=== PATIENT | female | born 1990 | race Caucasian/White ===

== ENCOUNTER 2022-01-11 12:09 | Outpatient (CLI) | payer BC, SELFPAY ==
[2022-01-11] VITALS (8 sets, daily range): BP systolic 131–145; BP diastolic 88–101; PULSE 75–88; BMI 45.8
[2022-01-11] MEDS: Acetaminophen/Butalbital/Caffe 1 Tablet 2 TABLET PO (13:03)
[2022-01-11 13:48] LABS: Hematocrit 32.2 % (37-47); Hemoglobin 10.3 g/dL (12.0-15.0); Mean Corpuscular Volume 90.7 fL (81-99); Mean Platelet Vol. 9.8 fl (6.2-12.0); Platelet Count 326 K/mm3 (150-450); RBC Distribution Width CV 13.5 % (11.6-14.6); Red Blood Count 3.55 M/mm3 (4.2-5.4); White Blood Count 10.5 K/mm3 (4.4-11.0)
[2022-01-11 14:08] LABS: ALB/GLOB Ratio 0.6 RATIO (0.9-2.4); AST(SGOT) 16 U/L (15-37); Alanine Aminotransfer ALT/SGPT 23 U/L (13-56); Albumin, Serum 2.3 g/dL (3.2-5.0); Alkaline Phosphatase 141 U/L (45-117); Anion Gap 7 (5-15); BUN 9 mg/dL (7-18); BUN/Creat Ratio 14.8 RATIO (10-20); Calcium,Total 9.1 mg/dL (8.5-10.1); Chloride 107 mmol/L (98-107); Creatinine, Serum 0.61 mg/dL (0.55-1.02); EST Glomerular Filtration Rate 120 mL/min (>60); Est Glom Filt Rate - Afr Amer 145 mL/min (>60); Estimated Creatinine Clearance 103.75 ml/min; Globulin 4.1 g/dL (2.2-4.2); Glucose 83 mg/dL (74-106); Potassium 3.8 mmol/L (3.5-5.1); Protein, Total 6.4 g/dL (6.4-8.2); Sodium Level 143 mmol/L (136-145); Uric Acid 4.5 mg/dL (2.6-6.0)
--- NOTE | 2022-01-11 14:13 | PCM.HP.BLA ---
History and Physical Date of Admission: 01/11/22 HPI: 31 yo s/p on 01/05. Delivered at [facility] in [place]. Patient presenting today with headache. Patient states that the headache started yesterday. She was taking Motrin and Tylenol alternating every 6 hours. States headache is frontal, not behind her eyes, throbbing in nature. [place] somewhat better last evening. Woke up this morning and headache was present again. States she had about 10 minutes of blurry vision around 915 which is since resolved and not recurred. Since receiving Fioricet, states that headache has decreased from 8 to a level 5. Now she is feeling tired and some soreness. Denies visual disturbances, chest pain or shortness of breath, nausea or vomiting, right upper quadrant pain, diarrhea constipation, fevers or chills. States that her blood pressures became mildly elevated during her induction last week, labs were negative at that time. Patient was discharged home with blood pressure cuff, was instructed to check blood pressure in the a.m. and p.m., has not been doing this at home, until today. Blood pressures mildly elevated at home. Nothing over 160/110. 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 Depression Surgical History: 1. Laparoscopic cholecystectomy Medications: 1. Lexapro Allergies: NKDA Social History: Denies tobacco, alcohol, drug use Family History: Denies hx of blood clots, bleeding disorders. ROS: negative otherwise stated above Physical Exam: BP 137/96, HR 80 General: No acute distress comfortable in bed HEENT: Normal cephalic/atraumatic, PERRLA Cardiorespiratory: No increased effort, regular heart rate Abdomen: Soft, nontender Extremities: No edema Neurologic: Cranial nerves II through XII grossly intact, no focal deficits, patellar reflexes 2/4 bilaterally, no clonus Musculoskeletal: Strength 5 out of 5 throughout extremities Assessment/plan: 31-year-old G1, P1 day 6 status post presenting with headache and elevated blood pressure. ?CBC and CMP within normal limits. ?Blood pressure slightly elevated ?Headache improved greatly with Fioricet. Had short episode of visual disturbances this morning which has resolved and not returned. ?No evidence at this time of severe preeclampsia or need for magnesium sulfate treatment. ?Discussed possible options for treatment including: Overnight blood pressure monitoring and starting blood pressure medication inpatient versus discharge home with blood pressure medication and outpatient monitoring. Discussed risks and benefits of each. Patient does have blood pressure cuff at home. As there is no evidence of severe preeclampsia at this time, reasonable for discharge home with outpatient management. Patient elected for this option, through shared decision making, will discharge home on labetalol 100 mg twice daily and Fioricet as needed. ?Patient and instructed to check blood pressure 3 times daily. To return to hospital for blood pressure greater than 160/110, headache that is worsening and not improving, visual disturbances, right upper quadrant pain, patient not feeling well. Aware that if this were to occur she would then be diagnosed with severe preeclampsia and would be kept in the hospital for magnesium sulfate and inpatient blood pressure monitoring. All questions answered. -Discharge home with precautions, increased hydration, rest at home.
== END 2022-01-11 14:40 | disposition home or self-care (01) ==
LOC: WPOUT 12:33 → WP 12:33
PROVIDERS: Referring Provider Student in an Organized Health Care Education/Training Program; Visit Provider Student in an Organized Health Care Education/Training Program
DX: O90.89 Other complications of the puerperium, not elsewhere classified (principal); R03.0 Elevated blood-pressure reading, without diagnosis of hypertension; R51.9 Headache, unspecified
CPT/HCPCS: 36415; 80053; 84550; 85027; 99218; G0378

== ENCOUNTER → 2024-05-03 | Outpatient (CLI) | payer OTHER, BC, SELFPAY ==
[2024-05-08 08:07] LABS: HPV APTIMA, High Risk Negative (Negative)
== END | disposition home or self-care (01) ==
LOC: LABSPEC 16:27
PROVIDERS: Referring Provider Advanced Practice Midwife; Visit Provider Advanced Practice Midwife
DX: Z12.4 Encounter for screening for malignant neoplasm of cervix (principal)
CPT/HCPCS: 87624; 88175; G0145

== ENCOUNTER → 2024-06-09 | Outpatient (CLI) | payer OTHER, BC, SELFPAY ==
[2024-06-09 17:37] LABS: Protein:Creat Ratio 119 mg/g CRE (0-200)
== END | disposition home or self-care (01) ==
LOC: LABSPEC 16:14
PROVIDERS: Referring Provider Advanced Practice Midwife; Visit Provider Advanced Practice Midwife
DX: O10.019 Pre-existing essential hypertension complicating pregnancy, unspecified trimester (principal); Z3A.00 Weeks of gestation of pregnancy not specified
CPT/HCPCS: 82570; 84156; 87086; 87088; 87491; 87591

== ENCOUNTER → 2024-07-06 | Outpatient (CLI) | payer OTHER, BC, SELFPAY ==
[2024-07-06 16:52] LABS: Absolute Lymphocyte Count 2.48 X10^3/uL (0.83-4.51); Absolute Neutrophil Count 4.7 X10^3/uL (2.0-7.7); Basophil# 0.05 X10^3/uL; Basophil% 0.6 % (0-1); Eosinophil# 0.28 X10^3/uL; Eosinophils% 3.4 % (0-5); Hematocrit 34.6 % (37-47); Hemoglobin 11.6 g/dL (12.0-15.0); Lymphocyte # 2.48 X10^3/ul (0.83-4.51); Lymphocyte % 30.4 % (19-41); Mean Corp Hgb Conc 33.5 g/dL (32-36); Mean Corpuscular Hgb 29.7 pg (27.0-32.0); Mean Corpuscular Volume 88.7 fL (81-99); Mean Platelet Vol. 10.8 fl (6.2-12.0); Monocyte# 0.62 X10^3/uL; Monocyte% 7.6 % (0-10); NRBC Flagged by Analyzer 0 % (0-5); Neutrophil # 4.71 X10^3/uL (2.7-7.7); Neutrophil % 57.6 % (47-70); Platelet Count 283 K/mm3 (150-450); RBC Distribution Width CV 13.1 % (11.6-14.6); RBC Distribution Width SD 42.6 fl (35.1-43.9); White Blood Count 8.2 K/mm3 (4.4-11.0)
[2024-07-06 18:04] LABS: HIV Nonreactive (Nonreactive); Hepatitis B Surface Antigen Nonreactive (Nonreactive); Hepatitis C Antibody Nonreactive (Nonreactive); Rubella IgG REAC (Nonreactive); Syphilis Antibodies Nonreactive (Nonreactive)
[2024-07-06 18:36] LABS: ALB/GLOB Ratio 1.3 RATIO (0.9-2.4); AST(SGOT) 16 U/L (<=31); Alanine Aminotransfer ALT/SGPT 15 U/L (<=34); Albumin, Serum 3.6 g/dL (3.5-5.0); Alkaline Phosphatase 58 U/L (35-104); Anion Gap 12 (5-15); BUN 10 mg/dL (4-19); BUN/Creat Ratio 19.8 RATIO (10-20); Calcium,Total 9.3 mg/dL (7.6-11.0); Carbon Dioxide 22.8 mmol/L (21.0-32.0); Chloride 103 mmol/L (98-108); Creatinine, Serum 0.53 mg/dL (0.70-1.20); EST Glomerular Filtration Rate 124 (>60); Globulin 2.7 g/dL (2.2-4.2); Glucose 99 mg/dL (70-99); Potassium 3.8 mmol/L (3.3-5.1); Protein, Total 6.3 g/dL (5.9-8.4); Sodium Level 138 mmol/L (133-145); Total Bilirubin < 0.15 mg/dL (0.00-1.30)
== END | disposition home or self-care (01) ==
PROVIDERS: Referring Provider Obstetrics & Gynecology; Visit Provider Advanced Practice Midwife
DX: O09.90 Supervision of high risk pregnancy, unspecified, unspecified trimester (principal); Z3A.00 Weeks of gestation of pregnancy not specified
CPT/HCPCS: 36415; 80053; 83036; 85025; 86703; 86762; 86780; 86803; 86850; 86900; 86901; 87340

== ENCOUNTER → 2024-07-21 | Outpatient (CLI) | payer OTHER, BC, SELFPAY ==
--- NOTE | 2024-07-21 08:59 | EKG12_ITS ---
Test Reason : Blood Pressure : */* mmHG Vent. Rate : 75 BPM Atrial Rate : 75 BPM P-R Int : 124 ms QRS Dur : 70 ms QT Int : 444 ms P-R-T Axes : 8 12 8 degrees QTcB Int : 495 ms Normal sinus rhythm Cannot rule out Anterior infarct , age undetermined Abnormal ECG Confirmed by PAUL DE LA CRUZ, KUSHAL ([id number]), scientific publications editor CESAR NOLAND ([id number]) on 07/24/2024 8:54:36 AM Referred By: Tawana Casper Confirmed By: KUSHAL MILLER MD
== END | disposition home or self-care (01) ==
LOC: PSN 08:56
PROVIDERS: PCP Family Medicine; Referring Provider Obstetrics & Gynecology; Visit Provider Obstetrics & Gynecology
DX: O99.210 Obesity complicating pregnancy, unspecified trimester (principal); O09.529 Supervision of elderly multigravida, unspecified trimester; Z3A.00 Weeks of gestation of pregnancy not specified
CPT/HCPCS: 93005

== ENCOUNTER → 2024-08-02 | Outpatient (CLI) | payer OTHER, BC, SELFPAY ==
[2024-08-02 13:01] LABS: Protein:Creat Ratio 65 mg/g CRE (0-200)
== END | disposition home or self-care (01) ==
LOC: BWCLAB 11:46
PROVIDERS: PCP Family Medicine; Referring Provider Obstetrics & Gynecology; Visit Provider Obstetrics & Gynecology
DX: O09.90 Supervision of high risk pregnancy, unspecified, unspecified trimester (principal); Z3A.00 Weeks of gestation of pregnancy not specified
CPT/HCPCS: 82570; 84156

== ENCOUNTER → 2024-10-30 | Outpatient (CLI) | payer OTHER, BC, SELFPAY ==
[2024-10-30 16:46] LABS: Hematocrit 33.3 % (37-47); Hemoglobin 11.1 g/dL (12.0-15.0); Immature Granulocytes Count 0.050 X10^3/uL (0.0-0.0); Mean Corp Hgb Conc 33.3 g/dL (32-36); Mean Corpuscular Volume 90.0 fL (81-99); Mean Platelet Vol. 11.0 fl (6.2-12.0); NRBC Flagged by Analyzer 0 % (0-5); Platelet Count 277 K/mm3 (150-450); RBC Distribution Width CV 13.7 % (11.6-14.6); RBC Distribution Width SD 44.5 fl (35.1-43.9); Red Blood Count 3.70 M/mm3 (4.2-5.4); White Blood Count 10.8 K/mm3 (4.4-11.0)
[2024-10-30 17:51] LABS: Glucose Challenge Gest 1H 50g 138 mg/dL (70-140); HIV Nonreactive (Nonreactive); Syphilis Antibodies Nonreactive (Nonreactive)
== END | disposition home or self-care (01) ==
LOC: BWCLAB 13:32
PROVIDERS: PCP Family Medicine; Referring Provider Advanced Practice Midwife; Visit Provider Advanced Practice Midwife
DX: O99.210 Obesity complicating pregnancy, unspecified trimester (principal); Z3A.25 25 weeks gestation of pregnancy
CPT/HCPCS: 36415; 82950; 85025; 86703; 86780

== ENCOUNTER → 2024-11-10 | Outpatient (CLI) | payer OTHER, BC, SELFPAY ==
--- OUTSIDE RECORDS SUMMARY | 2024-11-10 06:50 | XMS RPT_ITS | CCD ---
Author Organization [facility] ion [facility] Care Team Providers Care Retail Equipment Associate Name Role Phone Escolas, Celio Unavailable Unavailable Rafiq Dyson Unavailable Unavailable Ericka Singer Unavailable Unavailable Escolas, Celio W Unavailable Unavailable Mishel Cartagena Unavailable Unavailable Bridger Patel Unavailable Unavailable Gera Flanagan Unavailable Unavailable Zayda Espinosa Unavailable Unavailable OBGYN IVF RDMS [id number], MG OBGYN Unavailable Unavailable Escolas, Celio W Unavailable Unavailable Unavailable Mike Nicholson Unavailable Unavailable Haley Méndez Unavailable Unavailable Unavailable Unavailable Escolas, Celio Unavailable Sarina Hall Unavailable [phone] Tom Bull Unavailable Suki You Unavailable Unavailable Unavailable Unavailable Dariela Campuzano Attending Unav ailable Dariela Campuzano Referring Unav ailable ESCOLAS, CELIO W Primary Care Unavailable ESCOLAS, CELIO W Primary Care Unavailable Petr-Banak, Ms. Tom Buitrago Attending Unavailable Petr-Banak, Ms. Tom Buitrago Referring Unavailable Petr-Banak, Ms. Tom Buitrago Attending Unavailable ESCOLAS, CELIO W Primary Care Unavailable Petr-Banramiro, Ms. Tom Buitrago Referring Unavailable ESCOLAS, CELIO W Referring Unavailable ESCOLAS, CELIO W Primary Care Unavailable Dr. MIKE NICHOLSON Attending Unavailab le ESCOLAS, CELIO W Primary Care Unavailable Suki You Attending Unavailable Suki You Referring Unavailable Petr-Banramiro, Ms. Tom Buitrago Attending Unavailable ESCOLAS, CELIO W Primary Care Unavailable Petr-Banak, Ms. Tom Buitrago Referring Unavailable Petr-Banak, Ms. Tom Buitrago Attending Unavailable ESCOLAS, CELIO Hankins Primary Care Unavailable Petr-Banak, Ms. Tom Buitrago Referring Unavailable Petr-Banak, Ms. Tom Buitrago Referring Unavailable ESCOLAS, CELIO Hankins Primary Care Unavailable Petr-Banak, Ms. Tom Buitrago Attending Unavailable Austinson, Dariela Mayfield Attending Unav ailable Austinson, Dariela Mayfield Referring Unav ailable ESCOLAS, CELIO Hankins Primary Care Unavailable Petr-Banak, Ms. Tom Buitrago Attending Unavailable ESCOLAS, CELIO Hankins Primary Care Unavailable Petr-Banak, Ms. Tom Buitrago Referring Unavailable ESCOLAS, [facility] Primary Care Unavailable Petr-Banak, Ms. Tom Buitrago Attending Unavailable Petr-Banak, Ms. Tom Buitrago Referring Unavailable ESCOLAS, CELIO Hankins Primary Care Unavailable Petr-Banak, Ms. Tom Buitrago Referring Unavailable Cortevallen, Dr. Janine Branch Attending U navailable ESCOLAS, CELIO Hankins Primary Care Unavailable Betty Dumont Attending Unavailable MD Jagjit Boles Admitting Unavailable MD Jagjit Boles Referring Unavailable Jorgeewie, Dr. Sarina Arteaga Attending Unavailable ESCOLAS, CELIO Primary Care Unavailable Patient, Unavailable Referring Unavailable ESCOLAS, CELIO Primary Care Unavailable Angely Shah Attending Unavailabl e Petr-Banak, Ms. Tom Buitrago Referring Unavailable ESCOLAS, CELIO Hankins Primary Care Unavailable EvanstonKrystal Attending Unavailable Petr-Banak, Ms. Tom Buitrago Referring Unavailable ESCOLAS, CELIO Primary Care Unavailable Cortcarlos, Dr. Janine Branch Attending U navailable Petr-Banak, Ms. Tom Shawe Referring Unavailable ESCOLAS, CELIO Primary Care Unavailable May, Dr. Marium Hillman Attending Unavail able ESCOLAS, CELIO Primary Care Unavailable Petr-Banak, Ms. Tom Shawe Referring Unavailable Cole, Flex Stone Attending Unavaila ble Petr-Banak, Ms. Tom Shawe Referring Unavailable ESCOLAS, CELIO W Primary Care Unavailable Krystal Cabral Attending Unavailable Patient, Unavailable Referring Unavailable Rafael, Dr. Sarina Arteaga Attending Unavailable ESCOLAS, CELIO W Primary Care Unavailable ESCOLAS, CELIO W Primary Care Unavailable You, Suki Attending Unavailable Petr-Banak, Ms. Tom Buitrago Attending Unavailable ESCOLAS, CELIO W Primary Care Unavailable ESCOLAS, CELIO W Attending Unavailable ESCOLAS, CELIO W Referring Unavailable ESCOLAS, CELIO W Primary Care Unavailable Petr-Banak, Ms. Tom Buitrago Attending Unavailable ESCOLAS, CELIO W Primary Care Unavailable Petr-Banak, Ms. Tom Buitrago Referring Unavailable Austinson, Dariela Mayfield Attending Unav ailable Austinson, Dariela Mayfield Referring Unav ailable ESCOLAS, CELIO W Primary Care Unavailable Petr-Banak, Ms. Tom Buitrago Referring Unavailable Petr-Banak, Ms. Tom Buitrago Attending Unavailable ESCOLAS, CELIO W Primary Care Unavailable You, Suki Referring Unavailable You, Suki Attending Unavailable ESCOLAS, CELIO W Primary Care Unavailable ESCOLAS, CELIO W Primary Care Unavailable PHYSICIAN, NOT RECORDED Primary Care Physician U navailable JOSEPH DEL CID DO Attending Unavailable LIZETH GOLDSTEINN-PRIMARY HEALTH ORGANISATION MANAGER, SANJANA Roman Primary Care UnaCarmen yMles CNM Attending Provider [phone] Carmen Perdomo CNM Referring Provider [phone] Andressa Schmitz RN Attending Provider Unavailabl e ESCOLAS, CELIO W Attending Unavailable ESCOLAS, CELIO W Primary Care Unavailable Dr. Tawana Timmons MD Attending Provider Dr. Tawana Timmons MD Referring Provider Dr. Judie Bella MD Primary Care Provider Dr. Arnulfo Gilmore MD Attending Provider Dr. Judie Bella MD Referring Provider Dr. Anh Song DO Attending Provider Carmen Perdomo CNM Attending Provider [phone] Carmen Perdomo CNM Referring Provider [phone] NO PRIMARY CARE, Primary Care Unavailable TIM BAH Attending Unavailable TAWANA TIMMONS Referring Unavailabl e MIEDEL, JUDIE E Primary Care Unavailable GOPI GONZALEZ Attending Unavailable TAWANA TIMMONS Referring Unavailelizabeth Perdomo CNM, Carmen Attending Provider [phone] Conor CNM, Carmen Referring Provider Carmen Perdomo Attending Unavailable Carmen Perdomo Referring Unavailable Miedel, Judie Primary Care Unavailable Carmen Perdomo Referring Unavailable Carmen Perdomo Attending Unavailable Miedel, Judie Primary Care Unavailable Andressa Schmitz Attending Unavailable Tawana Timmons Referring Unavailable Arnulfo Gilmore Attending Unavailable Miedel, Judie Primary Care Unavailable Carmen Perdomo Attending Unavailable Miedel, Judie Referring Unavailable Miedel, Judie Primary Care Unavailable Carmen Perdomo Attending Unavailable Tawana Timmons Attending Unavailable Carmen Perdomo Attending Unavailable Miedel, Judie Primary Care Unavailable Miedel, Judie Referring Unavailable Anh Song Attending Unavailabl e Miedel, Judie Referring Unavailable Miedel, Judie Primary Care Unavailable Anh Song Attending Unavailabl e Carmen Perdomo Attending Unavailable Miedel, Judie Referring Unavailable Miedel, Judie Primary Care Unavailable Carmen Perdomo Attending Unavailable Carmen Perdomo Referring Unavailable Carmen Perdomo Attending Unavailable Carmen Perdomo Referring Unavailable Carmen Perdomo Attending Unavailable Tawana Timmons Referring Unavailable Tawana Timmons Attending Unavailable Tawana Timmons Referring Unavailable Miedel, Judie Primary Care Unavailable Tawana Timmons Referring Unavailable Miedel, Judie Primary Care Unavailable Tawana Timmons Attending Unavailable Carmen Perdomo Referring Unavailable Carmen Perdomo Attending Unavailable Miedel, Judie Primary Care Unavailable Allergies Allergy Classification Reported Allergen(s) Allergy Type Date of Onset Reaction(s) Facility Opioid Agonists (6 sources) Codeine; Translations: [Codeine Derivatives] Drug Allergy [facility] Work Phone: (20 sources) Codeine; Translations: [Codeine Derivatives] Drug Allergy 2 Vomiting, Nausea [facility] Work Phone: (2 sources) Codeine; Translations: [CODEINE] Drug Allergy 3 [facility] (2 sources) vilazodone; Translations: [VILAZODONE HCL] Drug Allergy 2 [facility] Medications Current Medications Medication Drug Class(es) Dates Sig (Normalized) Sig (Original) acetaminophen 325 mg oral tablet (1 source) Start: 01-07-2022 take 3 tablets by mouth every six hours acetaminophen 325 mg oral tablet ; 3 tab(s) orally every 6 hours Quantity: 0 Refills: 0 Ordered: 07-Jan-2022 Yasmin Lackey Start: 07-Jan-2022 Generic Substitution Allowed acyclovir 800 mg oral tablet (7 sources) Herpesvirus Nucleoside Analog DNA Polymerase Inhibitor, Herpes Simplex Virus Nucleoside Analog DNA Polymerase Inhibitor, Herpes Zoster Virus Nucleoside Analog DNA Polymerase Inhibitor Start: 05-05-2021 End: 07-04-2021 take 1 tablet by mouth twice daily as needed Acyclovir 800 MG Oral Tablet TAKE 1 TABLET Twice daily PRN Quantity: 60 Refills: 1 Ordered: 05-May-2021 Celio Zhou DO Start : 05-May-2021 End : 04-Jul-2021 Active Ascorbic Acid (1 source) Vitamin C Vitamin C Quanti ty: 0 Refills: 0 Ordered: 12-Dec-2021 Domingo, Parmjita Generic Substitution Allowed benzoyl peroxide 50 mg/ml topical lotion (1 source) Start: 04-08-2021 [id number] Medication benzoyl peroxide 5 % topical cleanser benzoyl peroxide 5 % topical cleanser 5 % 1 Application topically daily 04/08/2021 Active (Current) cholecalciferol 0.01 mg oral tablet (4 sources) Vitamin D Start: 04-08-2021 [id number] Medication cholecalciferol (vitamin D3) 10 mcg (400 unit) tablet Vitamin D3 10 mcg (400 unit) 04/08/2021 Active (Outside) take 1 capsule by mouth every we ek Vitamin D3 1250 mcg (50,000 intl units) oral capsule ; cap(s) orally once a week Quantity: 0 Refills: 0 Ordered: 12-Dec-2021 Domingo, LaKeishia Generic Substitution Allowed dexlansoprazole 60 mg delayed release oral capsule (17 sources) Proton Pump Inhibitor Start: 03-06-2021 [id number] Medication dexlansoprazole 60 mg capsule,biphase delayed release Dexilant 60 mg capsule, delayed release 60 mg TAKE ONE CAPSULE BY MOUTH OSORIO 03/06/2021 Active (Outside) Start: 01-29-2021 take 1 capsule by [facility] once daily Dexilant 60 MG Oral Capsule Delayed Release TAKE ONE CAPSULE BY MOUTH DAILY Quantity: 30 Refills: 5 Ordered: 29-Jan-2021 Celio Zhou DO Start : 29-Jan-2021 Active take 1 capsule by [facility] once daily Dexilant 60 MG Oral Capsule Delayed Release TAKE ONE CAPSULE BY MOUTH DAILY Quantity: 30 Refills: 5 Ordered: 10-Jun-2020 Celio Zhou DO Active docusate sodium 100 mg oral capsule (1 source) Start: 01-07-2022 take 2 capsules by mouth twice daily as needed docusate sodium 100 mg oral capsule ; 1 cap(s) orally 2 times a day, As needed, Stool Softening Quantity: 0 Refills: 0 Ordered: 07-Jan-2022 Yasmin Lackey Start: 07-Jan-2022 Generic Substitution Allowed escitalopram 20 mg oral tablet (20 sources) Serotonin Reuptake Inhibitor Start: 03-17-2024 take 1 tablet by mouth once daily Escitalopram Oxalate (Lexapro) 20 mg tablet Active 20 mg PO daily March 17, 2024 1:00am Start: 02-24-2022 End: 05-25-2022 take 1 tablet by mouth once daily Escitalopram Oxalate 20 MG Oral Tablet Take 1 tablet daily Quantity: 90 Refills: 0 Ordered: 24-Feb-2022 Michelle Smith Start : 24-Feb-2022 End : 25-May-2022 Active Start: 03-11-2021 take 1 tablet by mouth once 35 1250 Medication escitalopram 20 mg tablet escitalopram 20 mg tablet 20 mg TAKE ONE TABLET BY MOUTH EVERY 03/11/2021 Active (Outside) Start: 01-08-2020 End: 03-17-2024 Escitalopram Oxalate (Lexapr o) 10 mg Tablet Discontinued mg January 11, 2022 12:00am March 17, 2024 9:16am Start: 01-08-2020 [facility] daily Escitalopram Oxalate 20 MG Oral Tablet TAKE ONE TABLET BY MOUTH EVERY DAY Quantity: 30 Refills: 5 Ordered: 05-Feb-2021 Aniacraigcelena Celio HERNANDEZ Start : 08-Jan-2020 Active Start: 01-08-2020 take 0.5 tablet by m outh once daily Escitalopram Oxalate 20 MG Oral Tablet TAKE 0.5 TABLET Daily Quantity: 15 Refills: 3 Ordered: 08-Oct-2020 AniaCelio flannery DO Start : 08-Jan-2020 Active take 1 tablet by norbert [facility] once daily Escitalopram Oxalate 20 MG Oral Tablet TAKE 1 TABLET BY MOUTH EVERY DAY Quantity: 30 Refills: 11 Winnie Celio HERNANDEZ Active metFORMIN hydrochloride 500 mg oral tablet (20 sources) Biguanide Start: 04-21-2023 Metformin 500 mg tablet Active mg PO April 21, 2023 1:00am Start: 04-01-2021 [id number] Medicat ion metformin ER 750 mg tablet,extended release 24 hr metformin ER 750 mg tablet,extended release 24 hr 750 mg 04/01/2021 Active (Outside) Start: 09-18-2019 take 2 tablets by mo uth once daily at dinner metFORMIN HCl ER 750 MG Oral Tablet Extended Release 24 Hour TAKE TWO TABLETS BY MOUTH ONCE DAILY WITH THE EVENING MEAL Quantity: 60 Refills: 3 Ordered: 10-Dec-2020 Winnie Celio HERNANDEZ Start : 18-Sep-2019 Active 24 hr metoprolol succinate 100 mg extended release oral tablet (10 sources) beta-Adrenergic Kevan Start: 03-17-2024 take 1 tablet by mouth twice daily Metoprolol Succinate 100 mg tablet extended release 24 hr Active 100 mg PO TWICE A DAY March 17, 2024 1:00am minocycline 100 mg oral capsule (1 source) Tetracycline-class Drug Start: 04-08-2021 take 1 capsule by mouth twice daily [id number] Medication minocycline 100 mg capsule minocycline 100 mg capsule 100 mg 1 Capsule by mouth twice a day 04/08/2021 Active (Current) phentermine hydrochloride 37.5 mg oral capsule (3 sources) Sympathomimetic Amine Anorectic Start: 08-05-2023 take 1 capsule by mouth once daily before mealtime phentermine 37.5 mg oral capsule take 1 capsule by mouth every morning BEFORE MEALS Start Date: 08/05/23 Status: Ordered Start: 06-10-2020 take 1 tablet by [facility]bert [facility] once daily Phentermine HCl - 37.5 MG Oral Tablet TAKE 1 TABLET DAILY. Quantity: 30 Refills: 0 Ordered: 12-Aug-2020 Celio Zhou DO Start : 10-Jun-2020 Active BMI: 43.53 Prena1 oral capsule (1 source) take 1 capsule by mouth once daily Prena1 oral capsule ; 1 cap(s) orally once a day Quantity: 0 Refills: 0 Ordered: 12-Dec-[address] Generic Substitution Allowed Ceslmizj-Myn-Df-Fa (1 source) Start: 01-11-2022 take 1 tablet by mouth once Rttihqtq-Rkj-Fh-Fa Active TABLET PO January 10, 2022 11:00pm Qwltfldh-Uxw-Kt-Fa 1 mg Tablet (10 sources) Start: 01-11-2022 take 1 tablet by mouth once Shwwdpbc-Sjh-Os-Fa 1 mg Tablet Active {tbl} PO January 11, 2022 12:00am tretinoin 0.25 mg/ml topical cream (1 source) Retinoid Start: 04-08-2021 [id number] Medication tretinoin 0.025 % topical cream tretinoin 0.025 % topical cream 0.025 % 1 Application to affected area at bedtime 04/08/2021 Active (Current) Completed/Discontinued Medications Medication Drug Class(es) Dates Sig (Normalized) Sig (Original) acetaminophen 300 mg / butalbital 50 mg / caffeine 40 mg oral capsule (18 sources) Barbiturate, Central Nervous System Stimulant, Methylxanthine Start: 01-11-2022 End: 03-17-2024 Butalbital-Acetam inophen-Caff (Fioricet) 50-300-40 mg capsule Discontinued 1 NMA PO Q8H as needed for pain 30 0 January 11, 2022 12:00am March 17, 2024 9:16am aspirin 81 mg delayed release oral tablet (20 sources) Platelet Aggregation Inhibitor, Nonsteroidal Anti-inflammatory Drug Start: 04-21-2023 End: 03-17-2024 take 1 tablet by mouth once daily Aspirin 81 mg tablet,delayed release (DR/EC) Discontinued 81 mg PO DAILY April 21, 2023 1:00am March 17, 2024 9:15am Aspirin 81 MG Or al Tablet Chewable Quantity: 0 Refills: 0 Ordered: 11-Jul-2021 DO Active take 1 tablet by mouth once osorio y Aspir 81 oral delayed release tablet ; 1 tab(s) orally once a day Quantity: 0 Refills: 0 Ordered: 12-Dec-[address] Generic Substitution Allowed Balcoltra 0.1-20 MG-MCG(21) Oral Tablet (2 sources) Start: 02-27-2022 take 1 tablet by mouth once daily Balcoltra 0.1-20 MG-MCG(21) Oral Tablet Take 1 tablet daily Quantity: 1 Refills: 3 Ordered: 27-Feb-2022 Tom Roberts Start : 27-Feb-2022 Active cariprazine 1.5 mg oral capsule (1 source) Atypical Antipsychotic Start: 10-28-2020 take 1 capsule by mouth once daily Vraylar 1.5 MG Oral Capsule TAKE ONE CAPSULE BY MOUTH DAILY Quantity: 30 Refills: 0 Ordered: 28-Oct-2020 DO Start : 28-Oct-2020 Complete 0.5 ml choriogonadotropin tahir 0.5 mg/ml prefilled syringe (6 sources) Gonadotropin Start: 03-11-2020 inject 0.5 mL by subcutaneous injection once Ovidrel 250 MCG/0.5ML Subcutaneous Injectable inject 0.5 mL once Quantity: 1 Refills: 2 Ordered: 11-Mar-2020 Zayda Bustillo Start : 11-Mar-2020 Active clindamycin 10 mg/ml topical lotion (4 sources) Lincosamide Antibacterial Start: 02-21-2019 Clindamycin Phosphate 1 % External Lotion Quantity: 60 Refills: 0 Start : 21-Feb-2019 Active clotrimazole 20 mg/ml vaginal cream (3 sources) Azole Antifungal Start: 05-01-2021 Clotrimazole 3 2 % Vaginal Cream INSERT 1 APPLICATORFUL INTRAVAGINALLY AT BEDTIME NIGHTLY. Quantity: 1 Refills: 0 Ordered: 01-May-2021 Celio Zhou DO Start : 01-May-2021 Active cyclobenzaprine hydrochloride 10 mg oral tablet (10 sources) Muscle Relaxant Start: 04-21-2023 End: 03-17-2024 take 1 tablet by mouth three times daily as needed for muscle spasms Cyclobenzaprine 10 mg tablet Discontinued 10 mg PO THREE TIMES A DAY as needed for muscle spasm 30 0 April 21, 2023 1:00am March 17, 2024 9:17am only AFTER work hours on work days DULoxetine 60 mg delayed release oral capsule (5 sources) Serotonin and Norepinephrine Reuptake Inhibitor Start: 10-08-2020 take 1 capsule by mouth once daily DULoxetine HCl - 60 MG Oral Capsule Delayed Release Particles TAKE 1 CAPSULE Daily Quantity: 30 Refills: 3 Ordered: 08-Oct-2020 Winnie HERNANDEZ Celio Start : 08-Oct-2020 Active after week of 30 mg Start: 10-08-2020 DULoxetine HCl - 30 MG Oral Capsule Delayed Release Particles 1 po daily while taking Lexapro 10 mg Quantity: 7 Refills: 0 Ordered: 08-Oct-2020 Celio Zhou DO Start : 08-Oct-2020 Active Norethindrone-E.Estradiol-Ir on (10 sources) Estrogen Start: 04-21-2023 End: 03-17-2024 Norethindrone-E.Estradiol-Ir on 1 mg-20 mcg (21)/75 mg (7) tablet Discontinued 1 {tbl} PO DAILY April 21, 2023 1:00am March 17, 2024 9:16am ibuprofen 600 mg oral tablet (11 sources) Nonsteroid al Anti-infla mmatory Drug Start: 04-21-2023 End: 03-17-2024 ta ke 1 ta bl et by mo wy h th re e ti me s da il y as ne ed ed fo r pa in Ibuprofen 600 mg tablet Discontinued 600 mg PO THREE TIMES A DAY as needed for pain 30 0 April 21, 2023 1:00am March 17, 2024 9:16am Start: 01-07-2022 [facility] 1 [facility] six hours ibuprofen 600 mg oral tablet ; 1 tab(s) orally every 6 hours Quantity: 0 Refills: 0 Ordered: 07-Jan-2022 Yasmin Lackey Start: 07-Jan-2022 Generic Substitution Allowed labetalol hydrochloride 100 mg oral tablet (16 sources) beta-Adrenergic Kevan Start: 01-11-2022 Labeta lol HCl - 100 MG Oral Tablet Quantity: 60 Refills: 0 Ordered: 11-Jan-2022 DO Start : 11-Jan-2022 Active Start: 01-11-2022 End: 04-21-2023 take 1 tablet by mouth twice daily Labetalol 100 mg tablet Discontinued 100 mg PO TWICE A DAY 60 0 January 11, 2022 12:00am April 21, 2023 12:04pm letrozole 2.5 mg oral tablet (8 sources) Aromatase Inhibitor Start: 02-03-2020 Letrozole 2.5 MG Oral Tablet TAKE 2 TABLET Daily for cycle days 3-7 and must have negative urine test prior to starting Quantity: 10 Refills: 2 Ordered: 03-Feb-2020 Bridger Patel MD Start : 03-Feb-2020 Active Start: 07-06-2019 take 1 tablet by norbert [facility] once daily, then take 3-7 tablets by mouth Letrozole 2.5 MG Oral Tablet Take 1 tablet orally, days 3 - 7 of cycle. Quantity: 5 Refills: 1 Rafiq Dyson DO Start : 06-Jul-2019 Active medroxyPROGESTERone acetate 10 mg oral tablet (1 source) Progestin Start: 01-30-2019 take 1 tablet by mouth once daily medroxyPROGESTERone Acetate 10 MG Oral Tablet TAKE 1 TABLET DAILY DIRECTED. Quantity: 30 Refills: 1 Rafiq Dyson DO Start : 30-Jan-2019 Active metroNIDAZOLE 500 mg oral tablet (3 sources) Nitroimidazole Antimicrobial Start: 07-11-2021 take 1 tablet by mouth twice daily metroNIDAZOLE 500 MG Oral Tablet TAKE 1 TABLET TWICE DAILY UNTIL FINISHED. Quantity: 14 Refills: 0 Ordered: 11-Jul-2021 Tom Roberts Start : 11-Jul-2021 Active oseltamivir 75 mg oral capsule (1 source) Neuraminidase Inhibitor Start: 04-07-2019 take 1 capsule by mouth twice daily Oseltamivir Phosphate 75 MG Oral Capsule TAKE 1 CAPSULE TWICE DAILY. Quantity: 10 Refills: 0 Ericka Helms Start : 07-Apr-2019 Active Paxlovid (300/100) 20 x 150 MG & 10 x 100MG Oral Tablet Therapy Pack (2 sources) Start: 10-30-2021 Paxlovid (300/100) 20 x 150 MG & 10 x 100MG Oral Tablet Therapy Pack Take by mouth as directed on the pre-packaged box Quantity: 1 Refills: 0 Ordered: 30-Oct-2021 Suki You MD Start : 30-Oct-2021 Active CMP ordered patient to have it done 10/30/21 27-1 MG Oral Tablet (20 sources) Start: 06-13-2021 take 1 tablet by mouth once daily 27-1 MG Oral Tablet TAKE 1 TABLET DAILY. Quantity: 0 Refills: 0 Ordered: 13-Jun-2021 DO Start : 13-Jun-2021 Active progesterone 100 mg oral capsule (6 sources) Progesterone Start: 02-16-2020 Progesterone Micronized 100 MG CAPS insert 1 tablet vaginally twice a day- morning and evening. Start on 3rd day after IUI. Quantity: 30 Refills: 3 Ordered: 16-Feb-2020 Gera Flanagan MD Start : 16-Feb-2020 Active traZODone hydrochloride 50 mg oral tablet (5 sources) Serotonin Reuptake Inhibitor Start: 10-08-2020 take 1 tablet by mouth at bedtime as needed for sleep traZODone HCl - 50 MG Oral Tablet TAKE 1 TABLET AT BEDTIME NEEDED FOR SLEEP. Quantity: 30 Refills: 5 Ordered: 08-Oct-2020 Celio Zhou DO Start : 08-Oct-2020 Active Tri-Sprintec 0.18/0.215/0.25 MG-35 MCG Oral Tablet (3 sources) Start: 12-10-2020 take 1 tablet by mouth once daily Tri-Sprintec 0.18/0.215/0.25 MG-35 MCG Oral Tablet TAKE 1 TABLET DAILY DIRECTED. Quantity: 1 Refills: 5 Ordered: 10-Dec-2020 Celio Zhou DO Start : 10-Dec-2020 Active valACYclovir 500 mg oral tablet (17 sources) Herpesvirus Nucleoside Analog DNA Polymerase Inhibitor, Herpes Simplex Virus Nucleoside Analog DNA Polymerase Inhibitor, Herpes Zoster Virus Nucleoside Analog DNA Polymerase Inhibitor Start: 06-09-2024 End: 06-12-2024 take 1 tablet by mouth twice daily Valacyclovir (Valtrex) 500 mg tablet Discontinued 500 mg PO TWICE A DAY 6 3 0 June 09, 2024 12:00am June 11, 2024 12:00am June 12, 2024 12:12am History of herpes genitalis Personal history of other infectious and parasitic diseases take one tab twice daily for 3 days Start: 12-12-2021 take 1 tablet by norbert th twice daily valACYclovir HCl - 500 MG Oral Tablet take one tablet twice a day for remainder of for suppression Quantity: 60 Refills: 1 Ordered: 12-Dec-2021 Tom Roberts Start : 12-Dec-2021 Active Problems Active Problems Problem Classification Problem Date Documented Da te Episodic/Chronic Administrative/social admission (20 sources) Family disruption due to divorce; Translations: [Family disruption due to divorce or legal separation] Episodic Allergic reactions (6 sources) Skin changes due to chronic exposure to nonionizing radiation, unspecified Onset: 2 Episodic Anxiety disorders (20 sources) Mixed anxiety and depressive disorder; Translations: [Dysthymic disorder] Onset: 2 Chronic Blindness and vision defects (20 sources) Disorder of refraction; Translations: [Unspecified disorder of refraction and accommodation] Episodic Diabetes or abnormal glucose tolerance complicating ; childbirth; or the puerperium (1 source) Abnormal glucose level; Translations: [Abnormal glucose complicating ] 11-02-2024 Episodic Comment on above: needs 3 hour Esophageal disorders (20 sources) Gastroesophageal reflux disease; Translations: [Esophageal reflux] Chronic Essential hypertension (20 sources) Hypertensive disorder; Translations: [Unspecified essential hypertension] Onset: 2 05-26-2024 Chronic Comment on above: Metoprolol on Metoprolol - week ly bpp's starting 32 weeks. deliver 37-38 weeks. Female infertility (20 sources) Female infertility; Translations: [Infertility, female, of unspecified origin] Chronic distress and abnormal forces of labor (2 sources) Abnormality of forces of labor, unspecified; Translations: [Abnormality of forces of labor, unspecified] Onset: 2 Episodic Fever of unknown origin (20 sources) Fever; Translations: [Fever, unspecified] Episodic Genitourinary symptoms and ill-defined conditions (7 sources) Dysuria; Translations: [Dysuria] Episodic Headache; including migraine (10 sources) Migraine; Translations: [Migraine, unspecified, not intractable, without status migrainosus] 04-21-2023 Chronic Hypertension complicating ; childbirth and the puerperium (10 sources) Hypertension complicating , childbirth and the puerperium; Translations: [Transient hypertension of , unspecified as to episode of care or not applicable] Onset: 2 01-07-2022 Episodic Immunizations and screening for infectious disease (20 sources) Patient encounter status; Translations: [Screening examination for venereal disease] Onset: 2 Resolved: 2 Episodic Liveborn (1 source) Livebirth; Translations: [Single liveborn, born in hospital, delivered without mention of section] 01-05-2022 Episodic Menstrual disorders (20 sources) Oligomenorrhea; Translations: [Scanty or infrequent menstruation] Resolved: 2 Chronic Mood disorders (20 sources) Depressive disorder; Translations: [Depressive disorder, not elsewhere classified] 04-21-2023 Chronic Comment on above: Lexapro Mood disorders (2 sources) Mood disorders; Translations: [Depression, unspecified] Onset: 2 Mycoses (20 sources) Candidiasis of vagina; Translations: [Candidiasis of vulva and vagina] Episodic Other aftercare (1 source) senior care (current) use of 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; 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] Onset: 2 Episodic Other aftercare (1 source) Other care home (current) drug therapy; Translations: [Other care home (current) drug therapy] Onset: 2 Episodic Other and unspecified benign neoplasm (3 sources) Melanocytic nevi of other parts of face Onset: 2 Episodic Other and unspecified benign neoplasm (3 sources) Melanocytic nevi of scalp and neck Onset: 2 Episodic Other and unspecified benign neoplasm (6 sources) Melanocytic nevi of trunk Onset: 2 Episodic Other and unspecified benign neoplasm (3 sources) Melanocytic nevi of unspecified upper limb, including shoulder Onset: 2 Episodic Other complications of ; puerperium affecting management of mother (1 source) Obesity complicating childbirth; Translations: [Obesity complicating childbirth] Onset: 2 Chronic Other complications of ; puerperium affecting management of mother (3 sources) Other mental disorders complicating childbirth; Translations: [Other mental disorders complicating childbirth] Onset: 2 Episodic Other complications of ; puerperium affecting management of mother (1 source) Obstetric high vaginal laceration alone; Translations: [Obstetric high vaginal laceration alone] Onset: 2 Episodic Other complications of ; puerperium affecting management of mother (1 source) Other viral diseases complicating childbirth; Translations: [Other viral diseases complicating childbirth] Onset: 2 Episodic Other complications of ; puerperium affecting management of mother (1 source) Abnormality in heart rate and rhythm complicating labor and delivery; Translations: [Abnlt in heart rate and rhythm comp labor and delivery] Onset: 2 Episodic Other complications of (1 source) Obesity complicating , third trimester; Translations: [Obesity complicating , third trimester] Onset: 2 Chronic Other complications of (20 sources) Maternal obesity complicating , childbirth and the puerperium, antepartum; Translations: [Obesity complicating , unspecified trimester] 06-09-2024 Chronic Comment on above: BMI 45.4; BPPs at 34 weeks& needs anesthesia consult HgBA1C ordered w/NOB Other complications of (2 sources) Obesity complicating , unspecified trimester; Translations: [Obesity complicating , unspecified trimester] Onset: 5 Chronic Other complications of (20 sources) High risk ; Translations: [Supervision of unspecified high-risk ] Resolved: 2 05-26-2024 Episodic Comment on above: , SLIME 01/14/25, PC: DALE Bonilla: Parth PRR, , SLIME 01/14, PC: Chad PC: Parth Other complications of (1 source) Other mental disorders complicating , third trimester; Translations: [Oth mental disorders complicating , third trimester] Onset: 2 Episodic Other complications of (1 source) Other viral diseases complicating , third trimester; Translations: [Other viral diseases complicating , third trimester] Onset: 2 Episodic Other complications of (2 sources) Decreased movements, third trimester, not applicable or unspecified; Translations: [Decreased movements, third trimester, unsp] Onset: 2 Episodic Other complications of (2 sources) Maternal care for abnormalities of the heart rate or rhythm, third trimester, not applicable or unspecified; Translations: [Matern care for abnlt fetl hrt rate or rhym, 3rd tri, unsp] Onset: 2 Episodic Other complications of (20 sources) Multigravida of advanced maternal age; Translations: [Supervision of elderly multigravida, unspecified trimester] 06-09-2024 Episodic Comment on above: growth at 34 Other complications of (1 source) Supervision of elderly multigravida, unspecified trimester; Translations: [Supervision of elderly multigravida, unspecified trimester] Onset: 5 Episodic Other complications of (1 source) Supervision of high risk , unspecified, unspecified trimester; Translations: [Supervision of high risk , unspecified, unspecified trimester] Onset: 5 Episodic Other connective tissue disease (20 sources) Plantar fasciitis; Translations: [Plantar fascial fibromatosis] Episodic Other endocrine disorders (20 sources) Polycystic ovarian syndrome; Translations: [Polycystic ovary syndrome] Onset: 5 04-21-2023 Chronic Comment on above: counseled regarding continuing vs stopping metformin, patient continued last with good outcomes wants to continue this Other gastrointestinal disorders (20 sources) Personal history of other diseases of the digestive system; Translations: [History of gastritis] Episodic Other infections; including parasitic (20 sources) H/O: viral illness; Translations: [Personal history of other infectious and parasitic diseases] Episodic Other lower respiratory disease (2 sources) Dyspnea; Translations: [Dyspnea, unspecified] Onset: 4 Episodic Other nutritional; endocrine; and metabolic disorders (20 sources) Morbid obesity; Translations: [Morbid obesity] Chronic Other nutritional; endocrine; and metabolic disorders (20 sources) Body mass index 40+ - severely obese; Translations: [Body Mass Index 45.0-49.9, adult] Chronic Other nutritional; endocrine; and metabolic disorders (1 source) Morbid (severe) obesity due to excess calories; Translations: [Morbid (severe) obesity due to excess calories] Onset: 2 Chronic Other nutritional; endocrine; and metabolic disorders (1 source) Obesity, unspecified; Translations: [Obesity, unspecified] Onset: 2 Chronic Other nutritional; endocrine; and metabolic disorders (20 sources) Weight gain; Translations: [Abnormal weight gain] Episodic Other and delivery including normal (20 sources) ; Translations: [ state, incidental] Onset: 2 01-04-2022 Episodic Comment on above: accept NIPT accept NIPT- low ris k, male Other skin disorders (20 sources) Cystic acne; Translations: [Other acne] Episodic Other skin disorders (20 sources) Female hirsutism; Translations: [Hirsutism] Episodic Other skin disorders (20 sources) H/O: skin disorder; Translations: [Personal history of diseases of skin and subcutaneous tissue] Episodic Other skin disorders (6 sources) Acne vulgaris Onset: 2 Episodic Other skin disorders (6 sources) Epidermal cyst Onset: 2 Episodic Residual codes; unclassified (20 sources) Infertile; Translations: [Infertility] Episodic Residual codes; unclassified (20 sources) Generalized aches and pains; Translations: [Generalized pain] Episodic Residual codes; unclassified (20 sources) Insomnia; Translations: [Insomnia, unspecified] Episodic Residual codes; unclassified (20 sources) Genetic disorder carrier; Translations: [Other genetic carrier status] Episodic Residual codes; unclassified (1 source) 39 weeks gestation of ; Translations: [39 weeks gestation of ] Onset: 2 Episodic Residual codes; unclassified (1 source) 36 weeks gestation of ; Translations: [36 weeks gestation of ] Onset: 2 Episodic Residual codes; unclassified (9 sources) Past history of procedure; Translations: [Other specified postprocedural states] 05-26-2024 Episodic Comment on above: 2012 Residual codes; unclassified (1 source) 29 weeks gestation of ; Translations: [29 weeks gestation of ] Onset: 5 Episodic Residual codes; unclassified (1 source) 25 weeks gestation of ; Translations: [25 weeks gestation of ] Onset: 5 Episodic Sprains and strains (20 sources) Strain of thoracic region; Translations: [Strain of muscle and tendon of unspecified wall of thorax, initial encounter] Onset: 5 04-21-2023 Episodic Unclassified (2 sources) INDUCTION OF LABOR 12-19-2021 Comment on above: INDUCTION OF LABOR Unclassified (1 source) PPV 01/05 PATIENT WANTED PETR 01-07-2022 Comment on above: PPV 01/05 PATIEN T WANTED PETR Unclassified (1 source) BLOOD PRESSURE CHECK 01/0501-07-2022 Comment on above: BLOOD PRESSURE CHECK 01/05 Unclassified (1 source) 39 weeks gestation of 01-04-2022 Unclassified (1 source) (normal spontaneous vaginal delivery) 01-05-2022 Unclassified (1 source) Liveborn infant by vaginal delivery 01-05-2022 Unclassified (1 source) Personal history of COVID-19; Translations: [Personal history of COVID-19] Onset: 2 Viral infection (20 sources) Herpes simplex; Translations: [Herpes simplex without mention of complication] Onset: 2 Resolved: 2 05-26-2024 Episodic Comment on above: Valtrax PRN Past or Other Problems Problem Classification Problem Date Documented Date Episodic/Chronic Inflammatory diseases of female pelvic organs (20 sources) Bacterial vaginosis; Translations: [Vaginitis and vulvovaginitis, unspecified] Resolved: 01-15-2022 Episodic Other complications of (20 sources) Rubella non-immune; Translations: [Other specified complications of , antepartum condition or complication] Resolved: 01-15-2022 Episodic Other female genital disorders (7 sources) H/O: Disorder; Translations: [Personal history of other genital system and obstetric disorders] Resolved: 01-15-2022 Episodic Other female genital disorders (7 sources) H/O: infertility - female; Translations: [Personal history of other genital system and obstetric disorders] Resolved: 01-15-2022 Episodic Other infections; including parasitic (1 source) Personal history of other infectious and parasitic diseases; Translations: [Personal history of other infectious and parasitic diseases] Onset: 06-09-2024 Episodic Other nutritional; endocrine; and metabolic disorders (20 sources) Severe obesity; Translations: [Morbid obesity] Resolved: 05-01-2021 Chronic Other nutritional; endocrine; and metabolic disorders (2 sources) Abnormal weight gain; Translations: [Abnormal weight gain] Onset: 06-12-2022 Episodic Other screening for suspected conditions (not mental disorders or infectious disease) (20 sources) Abnormal cervical Papanicolaou smear; Translations: [Patient encounter status] Onset: 06-04-2021 Resolved: 01-28-2019 Episodic Polyhydramnios and other problems of amniotic cavity (12 sources) Polyhydramnios; Translations: [Polyhydramnios, antepartum condition or complication] Onset: 12-23-2021 Resolved: 01-15-2022 Episodic Residual codes; unclassified (20 sources) Influenza-like symptoms; Translations: [Other general symptoms] Resolved: 01-15-2022 Episodic Residual codes; unclassified (7 sources) History of clinical finding in subject; Translations: [Personal history of other specified diseases] Resolved: 01-15-2022 Episodic Residual codes; unclassified (7 sources) H/O: ; Translations: [Personal history of other genital system and obstetric disorders] Resolved: 01-15-2022 Episodic Residual codes; unclassified (1 source) 12 weeks gestation of ; Translations: [12 weeks gestation of ] Onset: 07-06-2024 Episodic Residual codes; unclassified (1 source) 8 weeks gestation of ; Translations: [8 weeks gestation of ] Onset: 06-09-2024 Episodic Unclassified (5 sources) Cancer cervix screening status; Translations: [History of Cervical cancer screening] Unclassified (18 sources) Patient encounter status; Translations: [Encounter for preconception consultation] NEGATED: Highlighted row has not occurred!Residual codes; unclassified (20 sources) Disease Episodic Results Test Name Value Interpretation Reference Range Facility Absolute lymphocyte countOrd ered By: Carmen Perdomo on 10-30-2024 Lymphocytes Auto (Unsp spec) [#/Vol] 2.12 10*3/uL 0.83-4.51 [facility] Absolute neutrophil countOrd ered By: Carmen Perdomo on 10-30-2024 Neutrophils (Bld) [#/Vol] 7.8 10*3/uL High 2.0-7.7 [facility] Automated lymphocyte count a s percentage of total leukocytesOrdered By: Carmen Perdomo on 10-30-2024 Lymphocytes/100 WBC Auto (Unsp spec) 19.6 % 19-41 [facility] Basophil percentageOrdered B y: Carmen Perdomo on 10-30-2024 Basophils/100 WBC (Bld) 0.5 % 0-1 [facility] CBC W/Diff, Automatedon 10-07 Absolute Lymph 2.12 X10 3/uL Normal 0.83-4.51 [facility] Comment on above: Performed By: #### L 100.0100, L509.8002, L501.0250, L3890.6006 #### [facility] [address] [place], [address] Absolute Neut 7.8 X10 3/uL High 2.0-7.7 [facility] Comment on above: Performed By: #### L 100.0100, L509.8002, L501.0250, L3890.6006 #### [facility] [address] [place], [address] Basophils/100 WBC (Bld) 0.5 % Normal 0-1 [facility] Comment on above: Performed By: #### L 100.0100, L509.8002, L501.0250, L3890.6006 #### [facility] [address] [place], [address] Eosinophils/100 WBC (Bld) 1.7 % Normal 0-5 [facility] Comment on above: Performed By: #### L 100.0100, L509.8002, L501.0250, L3890.6006 #### [facility] [address] [place], [address] Erythrocyte distribution width (RBC) [Ratio] 13.7 % Normal 11.6-14.6 [facility] Comment on above: Performed By: #### L 100.0100, L509.8002, L501.0250, L3890.6006 #### [facility] [address] [place], [address] Hematocrit (Bld) [Volume fraction] 33.3 % Low 37-47 [facility] Comment on above: Performed By: #### L 100.0100, L509.8002, L501.0250, L3890.6006 #### [facility] [address] [place], [address] Hemoglobin (Bld) [Mass/Vol] 11.1 g/dL Low 12.0-15.0 [facility] Comment on above: Performed By: #### L 100.0100, L509.8002, L501.0250, L3890.6006 #### [facility] [address] [place], [address] IG% 0.500 Normal 0.0-0.9 [facility] Comment on above: Result Comment: IG% - Immature Granulocytes (promyelocytes, myelocytes and metamyelocytes) > 1% indicates that a LEFT SHIFT is Present. Performed By: #### L 100.0100, L509.8002, L501.0250, L3890.6006 #### [facility] [address] [place], [address] Lymphocytes/100 WBC (Bld) 19.6 % Normal 19-41 [facility] Comment on above: Performed By: #### L 100.0100, L509.8002, L501.0250, L3890.6006 #### [facility] [address] [place], [address] MCH (RBC) [Entitic mass] 30.0 pg Normal 27.0-32.0 [facility] Comment on above: Performed By: #### L 100.0100, L509.8002, L501.0250, L3890.6006 #### [facility] [address] [place], [address] MCHC (RBC) [Mass/Vol] 33.3 g/dL Normal 32-36 [facility] Comment on above: Performed By: #### L 100.0100, L509.8002, L501.0250, L3890.6006 #### [facility] [address] [place], [address] MCV (RBC) [Entitic vol] 90.0 fL Normal 81-99 [facility] Comment on above: Performed By: #### L 100.0100, L509.8002, L501.0250, L3890.6006 #### [facility] [address] [place], [address] Monocytes/100 WBC (Bld) 5.4 % Normal 0-10 [facility] Comment on above: Performed By: #### L 100.0100, L509.8002, L501.0250, L3890.6006 #### [facility] [address] [place], [address] Neutrophils/100 WBC (Bld) 72.3 % High 47-70 [facility] Comment on above: Performed By: #### L 100.0100, L509.8002, L501.0250, L3890.6006 #### [facility] [address] [place], [address] Nucleated RBC (Bld) [#/Vol] 0 10*3/uL Normal 0-5 [facility] Comment on above: Performed By: #### L 100.0100, L509.8002, L501.0250, L3890.6006 #### [facility] [address] [place], [address] Platelet mean volume (Bld) [Entitic vol] 11.0 fL Normal 6.2-12.0 [facility] Comment on above: Performed By: #### L 100.0100, L509.8002, L501.0250, L3890.6006 #### [facility] [address] [place], [address] Platelets (Bld) [#/Vol] 277 10*3/uL Normal 150-450 [facility] Comment on above: Performed By: #### L 100.0100, L509.8002, L501.0250, L3890.6006 #### [facility] [address] [place], [address] RBC (Bld) [#/Vol] 3.70 10*6/uL Low 4.2-5.4 [facility] Comment on above: Performed By: #### L 100.0100, L509.8002, L501.0250, L3890.6006 #### [facility] [address] [place], [address] RDW SD 44.5 fl High 35.1-43.9 [facility] Comment on above: Performed By: #### L 100.0100, L509.8002, L501.0250, L3890.6006 #### [facility] [address] [place], [address] WBC (Bld) [#/Vol] 10.8 10*3/uL Normal 4.4-11.0 [facility] Comment on above: Performed By: #### L 100.0100, L509.8002, L501.0250, L3890.6006 #### [facility] [address] [place], [address] Eosinophil percentageOrdered By: Carmen Perdomo on 10-30-2024 Eosinophils/100 WBC (Bld) 1.7 % 0-5 [facility] Erythrocyte distribution wid th ratioOrdered By: Carmen Perdomo on 10-30-2024 Erythrocyte distribution width (RBC) [Ratio] 13.7 % 11.6-14.6 [facility] Erythrocyte distribution wid th standard deviationOrdered By: Carmen Perdomo on 10-30-2024 Erythrocyte distribution width (RBC) [Ratio] 44.5 fl High 35.1-43.9 [facility] Glucose Challenge Gest 1H 50 indra 10-30-2024 GLU GEST 50g 1H 138 mg/dL Normal 70-140 [facility] Comment on above: Performed By: #### L 100.0100, L509.8002, L501.0250, L3890.6006 #### [facility] [address] [place], [place], [id number] Glucose measurement at 2 nae rs post-dose gestational glucose tolerance testOrdered By: Carmen Perdomo on 10-30-2024 Glucose [Mass/Vol] 138 mg/dL 70-140 [facility] HIVon 10-30-2024 HIV Non-Reactive Normal Nonreactive [facility] Comment on above: Result Comment: Non- Reactive Reactive Repeatedly reactive samples must be confirmed according to CDC recommended confirmatory algorithms. The subresults for either HIVAG or AHIV can be used as an aid in the selection of the confirmation algorithm for reactive samples. Send out specimens with Reactive results to [facility] for confirmation. Order the HIV antibody detection and differentiation: lc#[id number] Performed By: #### L 100.0100, L509.8002, L501.0250, L3890.6006 #### [facility] [address] [place], [place], [id number] Hematocrit Auto (Bld) [Volum e fraction]Ordered By: Carmen Perdomo on 10-30-2024 Hematocrit (Bld) [Volume fraction] 33.3 % Low 37-47 [facility] Hemoglobin measurementOrdere d By: Carmen Perdomo on 10-30-2024 Hemoglobin (Bld) [Mass/Vol] 11.1 g/dL Low 12.0-15.0 [facility] Immature granulocytes/100 WB C Auto (Bld)Ordered By: Carmen Perdomo on 10-30-2024 Immature granulocytes/100 WBC (Bld) 0.500 % 0.0-0.9 [facility] Comment on above: IG% - Immature Granu locytes (promyelocytes, myelocytes and metamyelocytes) > 1% indicates that a LEFT SHIFT is Present. MCV (mean corpuscular volume ) determinationOrdered By: Carmen Perdomo on 10-30-2024 MCV (RBC) [Entitic vol] 90.0 fL 81-99 [facility] Mean corpuscular hemoglobin (MCH) determinationOrdered By: Carmen Perdomo on 10-30-2024 MCH (RBC) [Entitic mass] 30.0 pg 27.0-32.0 [facility] Mean corpuscular hemoglobin concentration (MCHC) determinationOrdered By: Carmen Perdomo on 10-30-2024 MCHC (RBC) [Mass/Vol] 33.3 g/dL 32-36 [facility] Mean platelet volume determi nationOrdered By: Carmen Perdomo on 10-30-2024 Platelet mean volume (Bld) [Entitic vol] 11.0 fL 6.2-12.0 [facility] Monocyte percentageOrdered B y: Carmen Perdomo on 10-30-2024 Monocytes/100 WBC (Bld) 5.4 % 0-10 [facility] Neutrophil percentageOrdered By: Carmen Perdomo on 10-30-2024 Neutrophils/100 WBC (Bld) 72.3 % High 47-70 [facility] No Panel InformationOrdered By: Carmen Perdomo on 10-30-2024 HIV (1&2) Antibody Non-Reactive Nonreactive [facility] Comment on above: Non-ReactiveReactive Repeatedly reactive samples must be confirmed according to CDC recommended confirmatory algorithms. The subresults for either HIVAG or AHIV can be used as an aid in the selection of the confirmation algorithm for reactive samples.Send out specimens with Reactive results to [facility] for confirmation.Order the HIV antibody detection and differentiation: #[id number] Nucleated red blood cell per centageOrdered By: Carmen Perdomo on 10-30-2024 Nucleated RBC/100 WBC (Bld) [Ratio] 0 % 0-5 [facility] [employer] Office Visit Reporton 10-30-2024 [employer] Office Visit Report [facility] [address], [address] [place] [address] OFFICE VISIT Date of Service: 10/30/24 MR#: [id number] Acct: [id number] Name: SHU GASPAR Rep #: [id number] : 1990 Provider: AMIE Talley ams Age/Sex: 33/F Location: [facility] Status: Signed Intake Vital Signs 09/01/24 14:59 10/02/24 09:42 10/30/24 13:49 Height 5 ft 2 in 5 ft 2 in 5 ft 2 in Weight: 265 lb 6 oz 268 lb 5 oz BMI 48.5 49.1 BP 124/83 H 120/83 H Intake Visit Reasons: 28wk ob/glucose 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 Is patient in pain?: No Allergies No Known Allergies Allergy (Verified 10/30/24 13:50) Medications ???Medication ???Instructions ???Recorded ???Confirmed ???Type srtxyndz-tuj-Ta-[id number] 1 mg tab PO 01/11/22 10/30/24 History tablet metformin 500 mg tablet mg PO 04/21/23 10/30/24 History escitalopram oxalate 20 mg tablet 20 mg PO QDAY 03/17/24 10/30/24 H istory (Lexapro) metoprolol succinate 100 mg 100 mg PO BID 03/17/24 10/30/24 Hi story tablet,extended release 24 hr Last Menstrual Period: 04/09/24 Zika: Zika virus screening: Negative : No Have you fallen in the past year?: No PFSH PFSH Medical History Polycystic disease, ovaries HPV test positive Herpes simplex type 2 infection Hypertension Gallstone Acute thoracic myofascial strain Depression Migraine Surgical History History of colposcopy History of laparoscopic cholecystectomy Family History Brother Alcoholism Colon cancer Myocardial infarction, Onset Age: 44 Mother Depression Father Diabetes Hypertension Grandmother CVA (cerebral vascular accident) Grandmother Thyroid disorder Uterine cancer Other Cancer Social History adopted: No household members: spouse and children housing: condominium number of children: 1 current occupational status: employed 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 occupational 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: No pets and animals: Yes ( taking care of litterbox) pets and animals: cat(s) history of recent travel: No sexually active: Yes Smoking Status: Never smoker second hand exposure: No alcohol intake: never substance use type: does not use well-balanced diet: about half the time caffeine: Yes Type: coffee Number of servings: 1 eating out: 1-3 times/week during the past year weight has: remained stable what type of physical activity do you participate in: none baylee/uatsdin: None seatbelt use: always do you feel safe at home: Yes additional social history: : Parth Leggett History 2 Elective abortions Hx Para 1 Spontaneous abortions Hx # Term Pregnancies 1 Ectopic pregnancies Hx # Pregnancies Multiple births # of living children 1 Past Pregnancies Del. Date Name GA/Weeks Outcome Route Bth Weight Gen Labor Lgth Anesthesia Del Locatn Provider FOB 01/05/22 Chad 39 live - full term 7lbs 8oz Male epidural [facility] Delivery Date: 01/05/22 Last Updated by: Andressa Schmitz RN HTN during labor..(no pre-e but now has chronic HTN) HPI 28wk ob/glucose Details: SHU GASPAR is a 33 year old who presents for routine OB visit. OB Visit SLIME Calculator Estimated Delivery Date Method Current WG Current Estimate 01/14/25 LMP (Certain) 29w 1d Other Estimates 01/17/25 Ultrasound #1 28w 5d Expected Delivery Route/Plan Labor Preferences- CB/BF classes: [] labor support person: [] labor intervention preferences: [] pain management options preferred: [] cut cord/dad catch: [] : [] PP control planned: [] discussed possible routes of delivery and associated risks: [] special requests: [] Specific Issue/Plans Covid status: [] Flu vaccine: [] Tdap vaccine: [] Rhogam: [] LARC form signed: [] Problem list reviewed and updated with the most current plan of care details and appropriate orders placed. Relevant counseling for the gestational age provided. Continue routine care and follow up unless otherwise noted in visit notes/problem list details Initial Weight: 254 lb Date -???-???-???-???-???-???- ???-???-???-???-???-???- EGA Weight BP Urine Prot -???-???-???-???-???-???- ???-???-???-???-???-???- Glucose FHR FuHt Pres Dilation -???-???-???-???-???-???- ???-???-???-???-???-???- Effaced St Visit Note 06/09/24 -???-???-???-???-???-???- ???-???-???-???-???-???- 8w 5d 254 lb 8 oz (+8 oz) 125/80 -???-???-???-???-???-???- ???-???-???-???-???-???- 178 -???-???-???-??? (more content not included)... Normal [facility] Platelet countOrdered By: Zuleyma Perdomo on 10-30-2024 Platelets (Bld) [#/Vol] 277 10*3/uL 150-450 [facility] RBC Auto (Bld) [#/Vol]Ordere d By: Carmen Perdomo on 10-30-2024 RBC (Bld) [#/Vol] 3.70 10*6/uL Low 4.2-5.4 [facility] Syphilis Antibodieson 2024 Syphilis Abs Non-Reactive Normal Nonreactive [facility] Comment on above: Performed By: #### L 100.0100, L509.8002, L501.0250, L3890.6006 #### [facility] Laboratory [facility] [address] [place], [place], [id number] White blood cell (WBC) count Ordered By: Carmen Perdomo on 10-30-2024 WBC (Bld) [#/Vol] 10.8 10*3/uL 4.4-11.0 [facility] Laboratory - Chemistry and C hemistry - challengeOrdered By: Carmen Perdomo on 10-02-2024 Glucose Ql (U) Negative [facility] Laboratory - UrinalysisOrder ed By: Carmen Perdomo on 10-02-2024 Protein Ql (U) Negative [facility] [employer] Office Visit Reporton 10-02-2024 [employer] Office Visit Report [facility]'[address], [address] [place] [address] OFFICE VISIT Date of Service: 10/02/24 MR#: [id number] Acct: [id number] Name: SHU GASPAR Rep #: [id number] : 1990 Provider: AMIE Talley ams Age/Sex: 33/F Location: [facility] Status: Signed Intake Vital Signs 07/06/24 15:06 09/01/24 14:59 10/02/24 09:42 Height 5 ft 2 in 5 ft 2 in 5 ft 2 in Weight: 265 lb 6 oz BMI 48.5 BP 124/83 H Intake Visit Reasons: 24 wk ob Chief Complaint: 24wk OB 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 Is patient in pain?: No Allergies No Known Allergies Allergy (Verified 10/02/24 09:40) Medications ???Medication ???Instructions ???Recorded ???Confirmed ???Type [id number]-yak-Ex-FA 1 mg tab PO 01/11/22 10/02/24 History tablet metformin 500 mg tablet mg PO 04/21/23 10/02/24 History escitalopram oxalate 20 mg tablet 20 mg PO QDAY 03/17/24 10/02/24 H istory (Lexapro) metoprolol succinate 100 mg 100 mg PO BID 03/17/24 10/02/24 Hi story tablet,extended release 24 hr Last Menstrual Period: 04/09/24 : No PFSH PFSH Medical History Polycystic disease, ovaries HPV test positive Herpes simplex type 2 infection Hypertension Gallstone Acute thoracic myofascial strain Depression Migraine Surgical History History of colposcopy History of laparoscopic cholecystectomy Family History Brother Alcoholism Colon cancer Myocardial infarction, Onset Age: 44 Mother Depression Father Diabetes Hypertension Grandmother CVA (cerebral vascular accident) Grandmother Thyroid disorder Uterine cancer Other Cancer Social History adopted: No household members: spouse and children housing: condominium number of children: 1 current occupational status: employed 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: No pets and animals: Yes ( taking care of litterbox) pets and animals: cat(s) history of recent travel: No sexually active: Yes Smoking Status: Never smoker second hand exposure: No alcohol intake: never substance use type: does not use well-balanced diet: about half the time caffeine: Yes Type: coffee Number of servings: 1 eating out: 1-3 times/week during the past year weight has: remained stable what type of physical activity do you participate in: none baylee/uatsdin: None seatbelt use: always do you feel safe at home: Yes additional social history: : Parth [place]gett History 2 Elective abortions Hx Para 1 Spontaneous abortions Hx # Term Pregnancies 1 Ectopic pregnancies Hx # Pregnancies Multiple births # of living children 1 Past Pregnancies Del. Date Name GA/Weeks Outcome Route Bth Weight Gen Labor Lgth Anesthesia Del Locatn Provider FOB 01/05/22 Payette 39 live - full term 7lbs 8oz Male epidural [facility] Delivery Date: 01/05/22 Last Updated by: Andressa Schmitz RN HTN during labor..(no pre-e but now has chronic HTN) HPI 24 wk ob Details: SHU GASPAR is a 33 year old who presents for routine OB visit. OB Visit SLIME Calculator Estimated Delivery Date Method Current WG Current Estimate 01/14/25 LMP (Certain) 25w 1d Other Estimates 01/17/25 Ultrasound #1 24w 5d Expected Delivery Route/Plan Labor Preferences- CB/BF classes: [] labor support person: [] labor intervention preferences: [] pain management options preferred: [] cut cord/dad catch: [] : [] PP control planned: [] discussed possible routes of delivery and associated risks: [] special requests: [] Specific Issue/Plans Covid status: [] Flu vaccine: [] Tdap vaccine: [] Rhogam: [] LARC form signed: [] Problem list reviewed and updated with the most current plan of care details and appropriate orders placed. Relevant counseling for the gestational age provided. Continue routine care and follow up unless otherwise noted in visit notes/problem list details Initial Weight: 254 lb Date -???-???-???-???-???-???- ???-???-???-???-???-???- EGA Weight BP Urine Prot -???-???-???-???-???-???- ???-???-???-???-???-???- Glucose FHR FuHt Pres Dilation -???-???-???-???-???-???- ???-???-???-???-???-???- Effaced St Visit Note 06/09/24 -???-???-???-???-???-???- ???-???-???-???-???-???- 8w 5d 254 lb 8 oz (+8 oz) 125/80 -???-???-???-???-???-???- ???-???-???-???-???-???- 178 -???-???-???-???-???-???- ???-???-???-???-???-???- KW- CRL cons with dates. Accepts NIPT will get drawn at ne (more content not included)... Normal [facility] Laboratory - Chemistry and C hemistry - challengeOrdered By: Anh Soto on 09-01-2024 Glucose Ql (U) Negative [facility] Laboratory - UrinalysisOrder ed By: Anh Soto on 09-01-2024 Protein Ql (U) Negative [facility] [employer] Office Visit Reporton 09-01-2024 [employer] Office Visit Report [facility]'s [address], [address] [place] [address] OFFICE VISIT Date of Service: 09/01/24 MR#: [id number] Acct: [id number] Name: CHASITYSHU ARUNA Rep #: [id number] : 1990 Provider: Dr. Anh Kirk, DO Age/Sex: 33/F Location: [facility] Status: Signed Intake Vital Signs 06/09/24 13:11 08/02/24 11:04 09/01/24 14:57 09/01/24 14:59 Height 5 ft 2 in 5 ft 2 in 5 ft 2 in 5 ft 2 in Weight: 259 lb 2 oz BMI 47.4 BP 119/86 H Intake Visit Reasons: 20wk ob 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 Is patient in pain?: No Allergies No Known Allergies Allergy (Verified 09/01/24 14:57) Medications ???Medication ???Instructions ???Recorded ???Confirmed ???Type [id number]-fwd-Sg-FA 1 mg tab PO 01/11/22 09/01/24 History tablet metformin 500 mg tablet mg PO 04/21/23 09/01/24 History escitalopram oxalate 20 mg tablet 20 mg PO QDAY 03/17/24 09/01/24 H istory (Lexapro) metoprolol succinate 100 mg 100 mg PO BID 03/17/24 09/01/24 Hi story tablet,extended release 24 hr Last Menstrual Period: 04/09/24 Zika: Zika virus screening: Negative : No PFSH PFSH Medical History Polycystic disease, ovaries HPV test positive Herpes simplex type 2 infection Hypertension Gallstone Acute thoracic myofascial strain Depression Migraine Surgical History History of colposcopy History of laparoscopic cholecystectomy Family History Brother Alcoholism Colon cancer Myocardial infarction, Onset Age: 44 Mother Depression Father Diabetes Hypertension Grandmother CVA (cerebral vascular accident) Grandmother Thyroid disorder Uterine cancer Other Cancer Social History adopted: No household members: spouse and children housing: condominium number of children: 1 current occupational status: employed 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: No pets and animals: Yes ( taking care of litterbox) pets and animals: cat(s) history of recent travel: No sexually active: Yes Smoking Status: Never smoker second hand exposure: No alcohol intake: never substance use type: does not use well-balanced diet: about half the time caffeine: Yes Type: coffee Number of servings: 1 eating out: 1-3 times/week during the past year weight has: remained stable what type of physical activity do you participate in: none baylee/uatsdin: None seatbelt use: always do you feel safe at home: Yes additional social history: : Parth [place] History 2 Elective abortions Hx Para 1 Spontaneous abortions Hx # Term Pregnancies 1 Ectopic pregnancies Hx # Pregnancies Multiple births # of living children 1 Past Pregnancies Del. Date Name GA/Weeks Outcome Route Bth Weight Infant Gen Labor Lgth Anesthesia Del Locatn Provider FOB 01/05/22 Payette 39 live - full term 7lbs 8oz Male epidural [facility] Delivery Date: 01/05/22 Last Updated by: Andressa Schmitz RN HTN during labor..(no pre-e but now has chronic HTN) HPI 20wk ob Details: SHU GASPAR is a 33 year old who presents for routine OB visit. OB Visit SLIME Calculator Estimated Delivery Date Method Current WG Current Estimate 01/14/25 LMP (Certain) 20w 5d Other Estimates 01/17/25 Ultrasound #1 20w 2d Expected Delivery Route/Plan Labor Preferences- CB/BF classes: [] labor support person: [] labor intervention preferences: [] pain management options preferred: [] cut cord/dad catch: [] : [] PP control planned: [] discussed possible routes of delivery and associated risks: [] special requests: [] Specific Issue/Plans Covid status: [] Flu vaccine: [] Tdap vaccine: [] Rhogam: [] LARC form signed: [] Problem list reviewed and updated with the most current plan of care details and appropriate orders placed. Relevant counseling for the gestational age provided. Continue routine care and follow up unless otherwise noted in visit notes/problem list details Initial Weight: 254 lb Date -???-???-???-???-???-???- ???-???-???-???-???-???- EGA Weight BP Urine Prot -???-???-???-???-???-???- ???-???-???-???-???-???- Glucose FHR FuHt Pres Dilation -???-???-???-???-???-???- ???-???-???-???-???-???- Effaced St Visit Note 06/09/24 -???-???-???-???-???-???- ???-???-???-???-???-???- 8w 5d 254 lb 8 oz (+8 oz) 125/80 -???-???-???-???-???-???- ???-???-???-???-???-???- 178 -???-???-???-???-???-???- ???-???-???-???-???- (more content not included)... Normal [facility] Laboratory - Chemistry and C hemistry - challengeOrdered By: Anh Soto on 08-02-2024 Glucose Ql (U) Negative [facility] Laboratory - UrinalysisOrder ed By: Anh Soto on 08-02-2024 Protein Ql (U) Negative [facility] [employer] Office Visit Reporton 08-02-2024 [employer] Office Visit Report [facility]'s [address], [address] [place] [address] OFFICE VISIT Date of Service: 08/02/24 MR#: [id number] Acct: [id number] Name: SHU GASPAR Rep #: [id number] : 1990 Provider: Dr. Anh Kirk DO Age/Sex: 33/F Location: [facility] Status: Signed Intake Vital Signs 06/09/24 13:11 07/06/24 15:06 08/02/24 11:02 08/02/24 11:04 Height 5 ft 2 in 5 ft 2 in 5 ft 2 in 5 ft 2 in Weight: 266 lb BMI 48.6 BP 118/75 Intake Visit Reasons: 16wk ob 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 Is patient in pain?: No Allergies No Known Allergies Allergy (Verified 08/02/24 11:02) Medications ???Medication ???Instructions ???Recorded ???Confirmed ???Type mcfeajax-ohr-Sc-FA 1 mg tab PO 01/11/22 08/02/24 History tablet metformin 500 mg tablet mg PO 04/21/23 08/02/24 History escitalopram oxalate 20 mg tablet 20 mg PO QDAY 03/17/24 08/02/24 H istory (Lexapro) metoprolol succinate 100 mg 100 mg PO BID 03/17/24 08/02/24 Hi story tablet,extended release 24 hr Last Menstrual Period: 04/09/24 Zika: Zika virus screening: Negative : No PFSH PFSH Medical History (Updated 08/02/24 @ 11:[address] Anh Song, DO) Polycystic disease, ovaries HPV test positive Herpes simplex type 2 infection Hypertension Gallstone Acute thoracic myofascial strain Depression Migraine Surgical History History of colposcopy History of laparoscopic cholecystectomy Family History Brother Alcoholism Colon cancer Myocardial infarction, Onset Age: 44 Mother Depression Father Diabetes Hypertension Grandmother CVA (cerebral vascular accident) Grandmother Thyroid disorder Uterine cancer Other Cancer Social History adopted: No household members: spouse and children housing: condominium number of children: 1 current occupational status: employed 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 occupational 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: No pets and animals: Yes ( taking care of litterbox) pets and animals: cat(s) history of recent travel: No sexually active: Yes Smoking Status: Never smoker second hand exposure: No alcohol intake: never substance use type: does not use well-balanced diet: about half the time caffeine: Yes Type: coffee Number of servings: 1 eating out: 1-3 times/week during the past year weight has: remained stable what type of physical activity do you participate in: none baylee/uatsdin: None seatbelt use: always do you feel safe at home: Yes additional social history: : Par[place] History 2 Elective abortions Hx Para 1 Spontaneous abortions Hx # Term Pregnancies 1 Ectopic pregnancies Hx # Pregnancies Multiple births # of living children 1 Past Pregnancies Del. Date Name GA/Weeks Outcome Route Bth Weight Gen Labor Lgth Anesthesia Del Locatn Provider FOB 01/05/22 Chad 39 live - full term 7lbs 8oz Male epidural [facility] Delivery Date: 01/05/22 Last Updated by: Andressa Schmitz RN HTN during labor..(no pre-e but now has chronic HTN) HPI 16wk ob Details: SHU GASPAR is a 33 year old who presents for routine OB visit. OB Visit SLIME Calculator Estimated Delivery Date Method Current WG Current Estimate 01/14/25 LMP (Certain) 16w 3d Other Estimates 01/17/25 Ultrasound #1 16w 0d Expected Delivery Route/Plan Labor Preferences- CB/BF classes: [] labor support person: [] labor intervention preferences: [] pain management options preferred: [] cut cord/dad catch: [] : [] PP control planned: [] discussed possible routes of delivery and associated risks: [] special requests: [] Specific Issue/Plans Covid status: [] Flu vaccine: [] Tdap vaccine: [] Rhogam: [] LARC form signed: [] Problem list reviewed and updated with the most current plan of care details and appropriate orders placed. Relevant counseling for the gestational age provided. Continue routine care and follow up unless otherwise noted in visit notes/problem list details Initial Weight: 254 lb Date -???-???-???-???-???-???- ???-???-???-???-???-???- EGA Weight BP Urine Prot -???-???-???-???-???-???- ???-???-???-???-???-???- Glucose FHR FuHt Pres Dilation -???-???-???-???-???-???- ???-???-???-???-???-???- Effaced St Visit Note 06/09/24 -???-???-???-???-???-???- ???-???-???-???-???-???- 8w 5d 254 lb 8 oz (+8 oz) 125/80 -???-???-???-???-???-???- ???-???-???-???-???-???- 178 -???-???-???-???-???-???- ???-???-???-???- (more content not included)... Normal [facility] Protein+Creatinine Ratio,Uri neon 08-02-2024 PROT:CRE RATIO 65 mg/g CRE Normal 0-200 [facility] Comment on above: Performed By: #### L 501.0900 #### [facility] [address] [place], [place], [id number] Protein (U) [Mass/Vol] 14.0 mg/dL High 0.0-12.0 [facility] Comment on above: Performed By: #### L 501.0900 #### [facility] [address] [place], [address] UR CREAT 215.00 mg/dL Normal 28.00-217.00 [facility] Comment on above: Performed By: #### L 501.0900 #### [facility] [address] [place], [address] Random urine creatinine laureano urement (mass/volume)Ordered By: Tawana Timmons on 08-02-2024 Creatinine Unsp time (U) [Mass/Vol] 215.00 mg/dL 28.00-217.00 [facility] Urine protein measurement (m ass/volume)Ordered By: Tawana Timmons on 08-02-2024 Protein (U) [Mass/Vol] 14.0 mg/dL High 0.0-12.0 [facility] Urine protein/creatinine mas s ratioOrdered By: Tawana Timmons on 08-02-2024 Protein/Creatinine (U) [Mass ratio] 65 mg/g CRE 0-200 [facility] Electrocardiogram reportOrde red By: Arnulfo Gilmore on 07-24-2024 EKG study [facility] [address] [place] [address] 12 Lead EKG 07/21/24 0905 MR#: [id number] Acct: [id number] Name: SHU GASPAR Rep #:[id number] : 1990 33 From: Arnulfo Gilmore MD Attending Dr: Dr. Taawna Timmons MD Status: REG [facility] Ordering Dr: Tawana Timmons MD Victor M e: 07/21/24 Location: [facility] Sex: F C Admitted: Test Reason : Blood Pressure : */* mmHG Vent. Rate : 75 BPM Atrial Rate : 75 BPM P-R Int : 124 ms QRS Dur : 70 ms QT Int : 444 ms P-R-T Axes : 8 12 8 degrees QTcB Int : 495 ms Normal sinus rhythm Cannot rule out Anterior infarct , age undetermined Abnormal ECG Confirmed by ARNULFO GILMORE MD ([id number]), proposal editor CESAR NOLAND ([id number]) on 07/24/2024 8:54:36 AM Referred By: Tawana Timmons Confirmed By: ARNULFO GILMORE MD 07/24/24 0854 Date _ Arnulfo Gilmore MD CC: Dr. Judie Bella MD; Dr. Tawana Timmons MD ~ Signed [facility] Work Phone: 12 Lead EKGon 07-21-2024 12 Lead EKG [facility] [address] [place] [address] 12 Lead EKG 07/21/24 0905 MR#: [id number] Acct: [id number] Name: SHU GASPAR Rep #: [id number] : 1990 33 From: Arnulfo Gilmore MD Attending Dr: Dr. Tawana Timmons MD Status: REG CLI Ordering Dr: Tawana Timmons MD Date: 07/21/24 Location: [facility] Sex: F C Admitted: Test Reason : Blood Pressure : */* mmHG Vent. Rate : 75 BPM Atrial Rate : 75 BPM P-R Int : 124 ms QRS Dur : 70 ms QT Int : 444 ms P-R-T Axes : 8 12 8 degrees QTcB Int : 495 ms Normal sinus rhythm Cannot rule out Anterior infarct , age undetermined Abnormal ECG Confirmed by PAUL DE LA CRUZ, ARNULFO ([id number]), proposal editor CESAR NOLAND ([id number]) on 07/24/2024 8:54:36 AM Referred By: Tawana Timmons Confirmed By: ARNULFO GILMORE MD 07/24/24 0854 Date Arnulfo Gilmore MD CC: Dr. Judie Bella MD; Dr. Tawana Timmons MD Signed Normal [facility] Absolute lymphocyte countOrd ered By: Carmen Perdomo on 07-06-2024 Lymphocytes Auto (Unsp spec) [#/Vol] 2.48 10*3/uL 0.83-4.51 [facility] Absolute neutrophil countOrd ered By: Carmen Perdomo on 07-06-2024 Neutrophils (Bld) [#/Vol] 4.7 10*3/uL 2.0-7.7 [facility] Anion gap in Serum or Plasma Ordered By: Carmen Perdomo on 07-06-2024 Anion gap [Moles/Vol] 12 mmol/L - [facility] Automated lymphocyte count a s percentage of total leukocytesOrdered By: Carmen Perdomo on 07-06-2024 Lymphocytes/100 WBC Auto (Unsp spec) 30.4 % -41 [facility] BUN/creatinine ratioOrdered By: Carmen Perdomo on 07-06-2024 Urea nitrogen/Creatinine [Mass ratio] 19.8 mg/mg 10- [facility] Basophil percentageOrdered B y: Carmen Perdomo on 07-06-2024 Basophils/100 WBC (Bld) 0.6 % 0-1 [facility] Bilirubin, totalOrdered By: Carmen Perdomo on 07-06-2024 Bilirubin [Mass/Vol] mg/dL 0.00-1.30 [facility] CBC W/Diff, Automatedon Absolute Lymph 2.48 X10 3/uL Normal 0.83-4.51 [facility] Comment on above: Performed By: #### L 7400.0280 #### [facility] [address] [place], [address] Absolute Neut 4.7 X10 3/uL Normal 2.0-7.7 [facility] Comment on above: Performed By: #### L 7400.0280 #### [facility] [address] [place], [address] Basophils/100 WBC (Bld) 0.6 % Normal 0-1 [facility] Comment on above: Performed By: #### L 7400.0280 #### [facility] [address] [place], [address] Eosinophils/100 WBC (Bld) 3.4 % Normal 0-5 [facility] Comment on above: Performed By: #### L 7400.0280 #### [facility] [address] [place], [address] Erythrocyte distribution width (RBC) [Ratio] 13.1 % Normal 11.6-14.6 [facility] Comment on above: Performed By: #### L 7400.0280 #### [facility] [address] [place], [address] Hematocrit (Bld) [Volume fraction] 34.6 % Low 37-47 [facility] Comment on above: Performed By: #### L 7400.0280 #### [facility] [address] [place], [address] Hemoglobin (Bld) [Mass/Vol] 11.6 g/dL Low 12.0-15.0 [facility] Comment on above: Performed By: #### L 7400.0280 #### [facility] [address] [place], [address] IG% 0.400 Normal 0.0-0.9 [facility] Comment on above: Result Comment: IG% - Immature Granulocytes (promyelocytes, myelocytes and metamyelocytes) > 1% indicates that a LEFT SHIFT is Present. Performed By: #### L 7400.0280 #### [facility] [address] [place], [address] Lymphocytes/100 WBC (Bld) 30.4 % Normal 19-41 [facility] Comment on above: Performed By: #### L 7400.0280 #### [facility] [address] [place], [address] MCH (RBC) [Entitic mass] 29.7 pg Normal 27.0-32.0 [facility] Comment on above: Performed By: #### L 7400.0280 #### [facility] [address] [place], [address] MCHC (RBC) [Mass/Vol] 33.5 g/dL Normal 32-36 [facility] Comment on above: Performed By: #### L 7400.0280 #### [facility] [address] [place], [address] MCV (RBC) [Entitic vol] 88.7 fL Normal 81-99 [facility] Comment on above: Performed By: #### L 7400.0280 #### [facility] [address] [place], [address] Monocytes/100 WBC (Bld) 7.6 % Normal 0-10 [facility] Comment on above: Performed By: #### L 7400.0280 #### [facility] [address] [place], [address] Neutrophils/100 WBC (Bld) 57.6 % Normal 47-70 [facility] Comment on above: Performed By: #### L 7400.0280 #### [facility] [address] [place], [address] Nucleated RBC (Bld) [#/Vol] 0 10*3/uL Normal 0-5 [facility] Comment on above: Performed By: #### L 7400.0280 #### [facility] [address] [place], [address] Platelet mean volume (Bld) [Entitic vol] 10.8 fL Normal 6.2-12.0 [facility] Comment on above: Performed By: #### L 7400.0280 #### [facility] [address] [place], [address] Platelets (Bld) [#/Vol] 283 10*3/uL Normal 150-450 [facility] Comment on above: Performed By: #### L 7400.0280 #### [facility] [address] [place], [address] RBC (Bld) [#/Vol] 3.90 10*6/uL Low 4.2-5.4 [facility] Comment on above: Performed By: #### L 7400.0280 #### [facility] [address] [place], [address] RDW SD 42.6 fl Normal 35.1-43.9 [facility] Comment on above: Performed By: #### L 7400.0280 #### [facility] [address] [place], [address] WBC (Bld) [#/Vol] 8.2 10*3/uL Normal 4.4-11.0 [facility] Comment on above: Performed By: #### L 7400.0280 #### [facility] [address] [place], [address] Carbon dioxide, total [Moles /volume] in Central venous bloodOrdered By: Carmen Perdomo on 07-06-2024 CO2 [Moles/Vol] 22.8 mmol/L 21.0-32.0 [facility] Chloride assayOrdered By: Zuleyma Perdomo on 07-06-2024 Chloride [Moles/Vol] 103 mmol/L 98-108 [facility] Comprehensive Metabolic Prof ilon 07-06-2024 Albumin [Mass/Vol] 3.6 g/dL Normal 3.5-5.0 [facility] Comment on above: Performed By: #### L 7400.0280 #### [facility] [address] [place], [address] Albumin/Globulin [Mass ratio] 1.3 {ratio} Normal 0.9-2.4 [facility] Comment on above: Performed By: #### L 7400.0280 #### [facility] [address] [place], [address] ALK PHOS 58 U/L Normal 35-104 [facility] Comment on above: Performed By: #### L 7400.0280 #### [facility] [address] [place], [address] ALT [Catalytic activity/Vol] 15 U/L Normal <=34 [facility] Comment on above: Performed By: #### L 7400.0280 #### [facility] [address] [place], [address] AST [Catalytic activity/Vol] 16 U/L Normal <=31 [facility] Comment on above: Performed By: #### L 7400.0280 #### [facility] [address] [place], [address] BUN/CRE 19.8 RATIO Normal 10-20 [facility] Comment on above: Performed By: #### L 7400.0280 #### [facility] [address] [place], [address] Calcium [Mass/Vol] 9.3 mg/dL Normal 7.6-11.0 [facility] Comment on above: Performed By: #### L 7400.0280 #### [facility] [address] [place], [address] Chloride [Moles/Vol] 103 mmol/L Normal 98-108 [facility] Comment on above: Performed By: #### L 7400.0280 #### [facility] [address] [place], [address] CO2 [Moles/Vol] 22.8 mmol/L Normal 21.0-32.0 [facility] Comment on above: Performed By: #### L 7400.0280 #### [facility] [address] [place], [address] Creatinine [Mass/Vol] 0.53 mg/dL Low 0.70-1.20 [facility] Comment on above: Performed By: #### L 7400.0280 #### [facility] [address] [place], [address] GAP 12 Normal 5-15 [facility] Comment on above: Performed By: #### L 7400.0280 #### [facility] [address] [place], [address] GFR/1.73 sq M.predicted among non-blacks MDRD (S/P/Bld) [Vol rate/Area] 124 mL/min/{1.73_m2} Normal >60 [facility] Comment on above: Result Comment: mL/m in/1.73m2 CKD-EPI Creatinine Equation (2020) Performed By: #### L 7400.0280 #### [facility] [address] [place], [address] Globulin (S) [Mass/Vol] 2.7 g/dL Normal 2.2-4.2 [facility] Comment on above: Performed By: #### L 7400.0280 #### [facility] [address] [place], [address] Glucose [Mass/Vol] 99 mg/dL Normal 70-99 [facility] Comment on above: Performed By: #### L 7400.0280 #### [facility] [address] [place], [address] Potassium [Moles/Vol] 3.8 mmol/L Normal 3.3-5.1 [facility] Comment on above: Performed By: #### L 7400.0280 #### [facility] [address] [place], [address] Sodium [Moles/Vol] 138 mmol/L Normal 133-145 [facility] Comment on above: Performed By: #### L 7400.0280 #### [facility] [address] [place], [address] T BILI < 0.15 Normal 0.00-1.30 [facility] Comment on above: Performed By: #### L 7400.0280 #### [facility] [address] [place], [address] T PROT 6.3 g/dL Normal 5.9-8.4 [facility] Comment on above: Performed By: #### L 7400.0280 #### [facility] [address] [place], [address] Urea nitrogen [Mass/Vol] 10 mg/dL Normal 4-19 [facility] Comment on above: Performed By: #### L 7400.0280 #### [facility] [address] [place], [address] Eosinophil percentageOrdered By: Carmen Perdomo on 07-06-2024 Eosinophils/100 WBC (Bld) 3.4 % 0-5 [facility] Erythrocyte distribution wid th ratioOrdered By: Carmen Perdomo on 07-06-2024 Erythrocyte distribution width (RBC) [Ratio] 13.1 % 11.6-14.6 [facility] Erythrocyte distribution wid th standard deviationOrdered By: Carmen Perdomo on 07-06-2024 Erythrocyte distribution width (RBC) [Ratio] 42.6 fl 35.1-43.9 [facility] Glomerular filtration rate ( GFR) estimation/1.73 sq m using serum, plasma, or whole bOrdered By: Carmen Perdomo on 07-06-2024 GFR/1.73 sq M.predicted among non-blacks MDRD (S/P/Bld) [Vol rate/Area] 124 mL/min/{1.73_m2} >60 [facility] Comment on above: mL/min/1.73m2 CKD-EP I Creatinine Equation (2020) HIVon 07-06-2024 HIV Non-Reactive Normal Nonreactive [facility] Comment on above: Result Comment: Non- Reactive Reactive Repeatedly reactive samples must be confirmed according to CDC recommended confirmatory algorithms. The subresults for either HIVAG or AHIV can be used as an aid in the selection of the confirmation algorithm for reactive samples. Send out specimens with Reactive results to [facility] for confirmation. Order the HIV antibody detection and differentiation: #[id number] Performed By: #### L 7400.0280 #### [facility] [address] [place], [place], [id number] Hematocrit Auto (Bld) [Volum e fraction]Ordered By: Carmen Perdomo on 07-06-2024 Hematocrit (Bld) [Volume fraction] 34.6 % Low 37-47 [facility] Hemoglobin A1con 07-06-2024 HbA1c (Bld) [Mass fraction] 5.0 % Normal <=5.6 [facility] Comment on above: Result Comment: Norm al < 5.7 % Prediabetic 5.7 - 6.4 % Diabetic >or= 6.5 % Please note range changes. Performed By: #### L 7400.0280 #### [facility] [address] [place], [address] Hemoglobin A1c percentageOrd ered By: Carmen Perdomo on 07-06-2024 HbA1c (Bld) [Mass fraction] 5.0 % <5.7 [facility] Comment on above: Normal < 5.7 % Predi abetic 5.7 - 6.4 % Diabetic >or= 6.5 % Please note range changes. Hemoglobin measurementOrdere d By: Carmen Perdomo on 07-06-2024 Hemoglobin (Bld) [Mass/Vol] 11.6 g/dL Low 12.0-15.0 [facility] Hepatitis C Antibodyon 07-06 Hepatitis C Ab Non-Reactive Normal Nonreactive [facility] Comment on above: Result Comment: Reac tive: Presumptive evidence of antibodies to HCV. Follow CDC recommendations for supplemental testing. Non-Reactive: Antibodies to HCV were not detected; does not exclude the possibility of exposure to HCV Reactive Results are presumptive evidence of antibodies to HCV. Follow CDC recommendations for supplemental testing. Order confirmation testing: HCV Quant by PCR testing - HCVPCR #[id number] Non Reactive: < 0.8 Equivocal: >/= 0.8 to < 1.0 Reactive: >/= 1.0 The CDC requires that a reactive/equivocal HCV antibody result be sent out for confirmation. HCV Quant by PCR testing. Performed By: #### L 7400.0280 #### [facility] [address] [place], [place], [address] Immature granulocytes/100 WB C Auto (Bld)Ordered By: Carmen Perdomo on 07-06-2024 Immature granulocytes/100 WBC (Bld) 0.400 % 0.0-0.9 [facility] Comment on above: IG% - Immature Granu locytes (promyelocytes, myelocytes and metamyelocytes) > 1% indicates that a LEFT SHIFT is Present. L3890.6102on 07-06-2024 HEP B Surf Ag Non-Reactive Normal Nonreactive [facility] Comment on above: Result Comment: Reac tive: Presumptive evidence of HBV. Repeatedly reactive samples must be confirmed using a neutralization test ([employer] HBsAg Confirmatory Test) Non-Reactive: HBsAg not detected; does not exclude the possibility of exposure to HBV Performed By: #### L 7400.0280 #### [facility] [address] [place], [place], [address] L509.4006on 07-06-2024 Rubella IgG REAC Normal Nonreactive [facility] Comment on above: Result Comment: Anti body Result: Interpretation Non-Reactive: Non-Immune Reactive: Immune The following results were obtained with the [employer] Rubella IgG assay. Results from assays of other manufacturers cannot be used interchangeably. Performed By: #### L 7400.0280 #### [facility] [address] [facility]. [place], [place], [address] Laboratory - Chemistry and C hemistry - challengeOrdered By: Carmen Perdomo on 07-06-2024 AST [Catalytic activity/Vol] 16 U/L <32 [facility] - Microbiology an d Antimicrobial susceptibilityOrdered By: Carmen Perdomo on 07-06-2024 HBV surface Ag Ql (S) Non-Reactive Nonreactive [facility] Comment on above: Reactive: Presumptiv e evidence of HBV. Repeatedly reactive samples must be confirmed using a neutralization test ([employer] HBsAg Confirmatory Test)Non-Reactive: HBsAg not detected; does not exclude the possibility of exposure to HBV MCV (mean corpuscular volume ) determinationOrdered By: Carmen Perdomo on 07-06-2024 MCV (RBC) [Entitic vol] 88.7 fL 81-99 [facility] Mean corpuscular hemoglobin (MCH) determinationOrdered By: Carmen Perdomo on 07-06-2024 MCH (RBC) [Entitic mass] 29.7 pg 27.0-32.0 [facility] Mean corpuscular hemoglobin concentration (MCHC) determinationOrdered By: Carmen Perdomo on 07-06-2024 MCHC (RBC) [Mass/Vol] 33.5 g/dL 32-36 [facility] Mean platelet volume determi nationOrdered By: Carmen Perdomo on 07-06-2024 Platelet mean volume (Bld) [Entitic vol] 10.8 fL 6.2-12.0 [facility] Monocyte percentageOrdered B y: Carmen Perdomo on 07-06-2024 Monocytes/100 WBC (Bld) 7.6 % 0-10 [facility] NATERAon 07-06-2024 NATURA SEE SCANNED REPORT Normal [facility] Comment on above: Performed By: #### L 7400.0280 #### [facility] [address] [place], [address] Neutrophil percentageOrdered By: Carmen Perdomo on 07-06-2024 Neutrophils/100 WBC (Bld) 57.6 % 47-70 [facility] No Panel InformationOrdered By: Carmen Perdomo on 07-06-2024 HIV (1&2) Antibody Non-Reactive Nonreactive [facility] Comment on above: Non-ReactiveReactive Repeatedly reactive samples must be confirmed according to CDC recommended confirmatory algorithms. The subresults for either HIVAG or AHIV can be used as an aid in the selection of the confirmation algorithm for reactive samples.Send out specimens with Reactive results to [facility] for confirmation.Order the HIV antibody detection and differentiation: #[id number] Nucleated red blood cell per centageOrdered By: Carmen Perdomo on 07-06-2024 Nucleated RBC/100 WBC (Bld) [Ratio] 0 % 0-5 [facility] [employer] Office Visit Reporton 07-06-2024 [employer] Office Visit Report [facility] [address], [address] [place] [address] OFFICE VISIT Date of Service: 07/06/24 MR#: [id number] Acct: [id number] Name: SHU GASPAR Keron Rep #: [id number] : 1990 Provider: Dr. Tawana fajardo MD Age/Sex: 33/F Location: [facility] Status: Signed Intake Vital Signs 05/03/24 12:07 06/09/24 13:11 07/06/24 15:06 Height 5 ft 2 in 5 ft 2 in 5 ft 2 in Weight: 251 lb 8 oz BMI 46.0 BP 123/85 H Intake Visit Reasons: 12wk OB 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 Is patient in pain?: No Allergies No Known Allergies Allergy (Verified 07/06/24 15:07) Medications ???Medication ???Instructions ???Recorded ???Confirmed ???Type vlhtwive-shq-Ug-FA 1 mg tab PO 01/11/22 07/06/24 History tablet metformin 500 mg tablet mg PO 04/21/23 07/06/24 History escitalopram oxalate 20 mg tablet 20 mg PO QDAY 03/17/24 07/06/24 H istory (Lexapro) metoprolol succinate 100 mg 100 mg PO BID 03/17/24 07/06/24 Hi story tablet,extended release 24 hr Last Menstrual Period: 04/09/24 Zika: Zika virus screening: Negative : Yes [facility] Medical History (Updated 07/06/24 @ 15:[address] Tawana Timmons MD) HPV test positive Herpes simplex type 2 infection Hypertension Gallstone Acute thoracic myofascial strain Polycystic disease, ovaries Depression Migraine Surgical History History of colposcopy History of laparoscopic cholecystectomy Family History Brother Alcoholism Colon cancer Myocardial infarction, Onset Age: 44 Mother Depression Father Diabetes Hypertension Grandmother CVA (cerebral vascular accident) Grandmother Thyroid disorder Uterine cancer Other Cancer Social History adopted: No household members: spouse and children housing: condominium number of children: 1 current occupational status: employed 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: No pets and animals: Yes ( taking care of litterbox) pets and animals: cat(s) history of recent travel: No sexually active: Yes Smoking Status: Never smoker second hand exposure: No alcohol intake: never substance use type: does not use well-balanced diet: about half the time caffeine: Yes Type: coffee Number of servings: 1 eating out: 1-3 times/week during the past year weight has: remained stable what type of physical activity do you participate in: none baylee/uatsdin: None seatbelt use: always do you feel safe at home: Yes additional social history: : Parth Leggett History 2 Elective abortions Hx Para 1 Spontaneous abortions Hx # Term Pregnancies 1 Ectopic pregnancies Hx # Pregnancies Multiple births # of living children 1 Past Pregnancies Del. Date Name GA/Weeks Outcome Route Bth Weight Gen Labor Lgth Anesthesia Del Teddyatn Provider FOB 01/05/22 Chad 39 live - full term 7lbs 8oz Male epidural [facility] Delivery Date: 01/05/22 Last Updated by: Andressa Schmitz RN HTN during labor..(no pre-e but now has chronic HTN) HPI 12wk OB Details: SHU GASPAR is a 33 year old who presents for routine OB visit. OB Visit SLMIE Calculator Estimated Delivery Date Method Current WG Current Estimate 01/14/25 LMP (Certain) 12w 4d Other Estimates 01/17/25 Ultrasound #1 12w 1d Expected Delivery Route/Plan Labor Preferences- CB/BF classes: [] labor support person: [] labor intervention preferences: [] pain management options preferred: [] cut cord/dad catch: [] : [] PP control planned: [] discussed possible routes of delivery and associated risks: [] special requests: [] Specific Issue/Plans Covid status: [] Flu vaccine: [] Tdap vaccine: [] Rhogam: [] LARC form signed: [] Problem list reviewed and updated with the most current plan of care details and appropriate orders placed. Relevant counseling for the gestational age provided. Continue routine care and follow up unless otherwise noted in visit notes/problem list details Initial Weight: 254 lb Date -???-???-???-???-???-???- ???-???-???-???-???-???- EGA Weight BP Urine Prot -???-???-???-???-???-???- ???-???-???-???-???-???- Glucose FHR FuHt Pres Dilation -???-???-???-???-???-???- ???-???-???-???-???-???- Effaced St Visit Note 06/09/24 -???-???-???-???-???-???- ???-???-???-???-???-???- 8w 5d 254 lb 8 oz (+8 oz) 125/80 -???-???-???-???-???-???- ???-???-???-???-???-???- 178 -???-???-???-???-???-???- ???-???-???-???-???-???- KW- CRL cons with d (more content not included)... Normal [facility] Platelet countOrdered By: Zuleyma Perdomo on 07-06-2024 Platelets (Bld) [#/Vol] 283 10*3/uL 150-450 [facility] Potassium measurement (mass/ volume)Ordered By: Carmen Perdomo on 07-06-2024 Potassium (Unsp spec) [Mass/Vol] 3.8 mmol/L 3.3-5.1 [facility] RBC Auto (Bld) [#/Vol]Ordere d By: Carmen Perdomo on 07-06-2024 RBC (Bld) [#/Vol] 3.90 10*6/uL Low 4.2-5.4 [facility] Serum creatinine measurement (mass/volume)Ordered By: Cramen Perdomo on 07-06-2024 Creatinine [Mass/Vol] 0.53 mg/dL Low 0.70-1.20 [facility] Serum globulin measurementOr dered By: Carmen Perdomo on 07-06-2024 Globulin (S) [Mass/Vol] 2.7 g/dL 2.2-4.2 [facility] Serum glucose measurement (m ass/volume)Ordered By: Carmen Perdomo on 07-06-2024 Glucose [Mass/Vol] 99 mg/dL 70-99 [facility] Serum or plasma alanine agarwal otransferase (ALT) measurementOrdered By: Carmen Perdomo on 07-06-2024 ALT [Catalytic activity/Vol] 15 U/L <35 [facility] Serum or plasma albumin laureano urement (mass/volume)Ordered By: Carmen Perdomo on 07-06-2024 Albumin [Mass/Vol] 3.6 g/dL 3.5-5.0 [facility] Serum or plasma albumin/glob ulin mass ratioOrdered By: Carmen Perdomo on 07-06-2024 Albumin/Globulin [Mass ratio] 1.3 {ratio} 0.9-2.4 [facility] Serum or plasma alkaline aylin sphatase measurementOrdered By: Carmen Perdomo on 07-06-2024 ALP [Catalytic activity/Vol] 58 U/L 35-104 [facility] Serum or plasma calcium laureano urement (mass/volume)Ordered By: Carmen Perdomo on 07-06-2024 Calcium [Mass/Vol] 9.3 mg/dL 7.6-11.0 [facility] Serum or plasma urea nitroge n measurement (mass/volume)Ordered By: Carmen Perdomo on 07-06-2024 Urea nitrogen [Mass/Vol] 10 mg/dL 4-19 [facility] Sodium levelOrdered By: Wandy Perdomo on 07-06-2024 Sodium [Moles/Vol] 138 mmol/L 133-145 [facility] Syphilis Antibodieson 2024 Syphilis Abs Non-Reactive Normal Nonreactive [facility] Comment on above: Performed By: #### L 7400.0280 #### [facility] [address] [place], [place], [id number] Total proteinOrdered By: Viraj Perdomo on 07-06-2024 Protein [Mass/Vol] 6.3 g/dL 5.9-8.4 [facility] Type AND Screenon 07-06-2024 ABO and Rh group Nom (Bld) Blood group A Rh(D) positive Normal [facility] Comment on above: Order Comment: Speci men Comment: [id number] Specimen Comment: No. of containers..01 ThinPrep Vial Performed By: #### L 7400.0280 #### [facility] [address] [place], [place], [id number] White blood cell (WBC) count Ordered By: Carmen Perdomo on 07-06-2024 WBC (Bld) [#/Vol] 8.2 10*3/uL 4.4-11.0 [facility] Chlamydia/GC MCKENZIE aptimaon CHLAMY,NUC ACID Negative Normal Negative [facility] Comment on above: Performed By: #### M 100.2200, L501.0900, L7000.1800 #### [facility] [address] [place], [address] GC BY NUC ACID Negative Normal Negative [facility] Comment on above: Result Comment: Perf ormed at: =G - [facility] [address] [id number] Biostatistician: Abbie Siu MD, Phone: [phone] Performed By: #### M 100.2200, L501.0900, L7000.1800 #### [facility] [address] [place], [address] Urine Cultureon 06-12-2024 [facility] Below infection leve l. Mixed Gram Pos Gram Neg Org Emigrant Count 1000-10,000 MIXC Mixed contaminants. Submit a new specimen if indicated. Normal [facility] Comment on above: Performed By: #### M 100.2200, L501.0900, L7000.1800 #### [facility] [address] [place], [address] Chlamydia trachomatis rRNA d etection by probe and target amplification methodOrdered By: Carmen Perdomo on 06-09-2024 C. trachomatis rRNA MCKENZIE+probe Ql (Unsp spec) Negative Negative [facility] Creatinine Unsp time (U) [Ma ss/Vol]Ordered By: Carmen Perdomo on 06-09-2024 Creatinine (U) [Mass/Vol] 202.00 mg/dL 28.00-217.00 [facility] Neisseria gonorrhoeae nuclei c acid detection by amplified probe techniqueOrdered By: Carmen Perdomo on 06-09-2024 N. gonorrhoeae DNA MCKENZIE+probe Ql (Unsp spec) Negative Negative [facility] Comment on above: Performed at: =G - [facility] [address] [id number] Director: Abbie Siu MD, Phone: [phone] [employer] Office Visit Reporton 06-09-2024 [employer] Office Visit Report [facility] [address], [address] [place] [address] OFFICE VISIT Date of Service: 06/09/24 MR#: [id number] Acct: [id number] Name: SHU GASPAR Rep #: [id number] : 1990 Provider: AMIE Talley ams Age/Sex: 33/F Location: [facility] Status: Signed Intake Vital Signs 05/03/24 12:07 06/09/24 13:11 Height 5 ft 2 in 5 ft 2 in Weight: 254 lb 8 oz BMI 46.5 BP 125/80 H Intake Visit Reasons: NOB LMP 2/2 Chief Complaint: New OB 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 Is patient in pain?: No Allergies No Known Allergies Allergy (Verified 06/09/24 13:06) Medications ???Medication ???Instructions ???Recorded ???Confirmed ???Type ldraqxux-htg-Ug-FA 1 mg tab PO 01/11/22 06/09/24 History tablet metformin 500 mg tablet mg PO 04/21/23 06/09/24 History escitalopram oxalate 20 mg tablet 20 mg PO QDAY 03/17/24 06/09/24 H istory (Lexapro) metoprolol succinate 100 mg 100 mg PO BID 03/17/24 06/09/24 Hi story tablet,extended release 24 hr valacyclovir 500 mg tablet 500 mg PO BID 3 days #6 tabs 06/0906/09/24 Rx (Valtrex) Last Menstrual Period: 04/09/24 PFSH PFSH Medical History HPV test positive Herpes simplex type 2 infection Hypertension Gallstone Acute thoracic myofascial strain Polycystic disease, ovaries Depression Migraine Surgical History History of colposcopy History of laparoscopic cholecystectomy Family History Brother Alcoholism Colon cancer Myocardial infarction, Onset Age: 44 Mother Depression Father Diabetes Hypertension Grandmother CVA (cerebral vascular accident) Grandmother Thyroid disorder Uterine cancer Other Cancer Social History adopted: No household members: spouse and children housing: condominium number of children: 1 current occupational status: employed 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: No pets and animals: Yes ( taking care of litterbox) pets and animals: cat(s) history of recent travel: No sexually active: Yes Smoking Status: Never smoker second hand exposure: No alcohol intake: never substance use type: does not use well-balanced diet: about half the time caffeine: Yes Type: coffee Number of servings: 1 eating out: 1-3 times/week during the past year weight has: remained stable what type of physical activity do you participate in: none baylee/uatsdin: None seatbelt use: always do you feel safe at home: Yes additional social history: : Parth Leggett History 2 Elective abortions Hx Para 1 Spontaneous abortions Hx # Term Pregnancies 1 Ectopic pregnancies Hx # Pregnancies Multiple births # of living children 1 Past Pregnancies Del. Date Name GA/Weeks Outcome Route Bth Weight Gen Labor Lgth Anesthesia Del Locatn Provider FOB 01/05/22 Chad 39 live - full term 7lbs 8oz Male epidural [facility] Delivery Date: 01/05/22 Last Updated by: Andressa Schmitz RN HTN during labor..(no pre-e but now has chronic HTN) HPI NOB LMP 2/2 Details: SHU GASPAR is a 33 year old who presents for New OB visit. OB Visit SLIME Calculator Estimated Delivery Date Method Current WG Current Estimate 01/14/25 LMP (Certain) 8w 5d Estimated Due Date: 01/14/25 Expected Delivery Route/Plan Labor Preferences- CB/BF classes: [] labor support person: [] labor intervention preferences: [] pain management options preferred: [] cut cord/dad catch: [] : [] PP control planned: [] discussed possible routes of delivery and associated risks: [] special requests: [] Specific Issue/Plans Covid status: [] Flu vaccine: [] Tdap vaccine: [] Rhogam: [] LARC form signed: [] Problem list reviewed and updated with the most current plan of care details and appropriate orders placed. Relevant counseling for the gestational age provided. Continue routine care and follow up unless otherwise noted in visit notes/problem list details Initial Weight: 254 lb Date -???-???-???-???-???-???- ???-???-???-???-???-???- EGA Weight BP Urine Prot -???-???-???-???-???-???- ???-???-???-???-???-???- Glucose FHR FuHt Pres Dilation -???-???-???-???-???-???- ???-???-???-???-???-???- Effaced St Visit Note 06/09/24 -???-???-???-???-???-???- ???-???-???-???-???-???- 8w 5d 254 lb 8 oz (+8 oz) 125/80 -???-???-???-???-???-???- ???-???-???-???-???-???- 178 -???-???-???-???-???-???- ???-???-???-???-???-???- KW- CRL cons with dates. Acce (more content not included)... Normal [facility] Protein+Creatinine Ratio,Uri neon 06-09-2024 PROT:CRE RATIO 119 mg/g CRE Normal 0-200 [facility] Comment on above: Performed By: #### M 100.2200, L501.0900, L7000.1800 #### [facility] [address] [place], [place], [id number] Protein (U) [Mass/Vol] 24.0 mg/dL High 0.0-12.0 [facility] Comment on above: Performed By: #### M 100.2200, L501.0900, L7000.1800 #### [facility] [address] [place], [address] UR CREAT 202.00 mg/dL Normal 28.00-217.00 [facility] Comment on above: Performed By: #### M 100.2200, L501.0900, L7000.1800 #### [facility] [address] [place], [address] Protein/Creatinine (U) [Mass ratio]Ordered By: Carmen Perdomo on 06-09-2024 Urine Protein/Creatinine Ratio 119 mg/g CRE 0-200 [facility] Random urine creatinine laureano urement (mass/volume)Ordered By: Carmen Perdomo on 06-09-2024 Creatinine Unsp time (U) [Mass/Vol] 202.00 mg/dL 28.00-217.00 [facility] Urine cultureOrdered By: Viraj Perdomo on 06-09-2024 Bacteria identified Cx Nom (U) Mixed Gram Pos & Gram Neg Org Abnormal [facility] Urine protein measurement (m ass/volume)Ordered By: Carmen Perdomo on 06-09-2024 Protein (U) [Mass/Vol] 24.0 mg/dL High 0.0-12.0 [facility] Urine protein/creatinine mas s ratioOrdered By: Carmen Perdomo on 06-09-2024 Protein/Creatinine (U) [Mass ratio] 119 mg/g CRE 0-200 [facility] PAP IG HPV APTIMA 16/18,45on 05-08-2024 ADEQ Comment Normal . [facility] Comment on above: Order Comment: Speci men Comment: [id number] Specimen Comment: No. of containers..01 ThinPrep Vial Result Comment: Sati sfactory for evaluation. Endocervical and/or squamous metaplastic cells (endocervical component) are present. Performed By: #### L 7400.0280 #### [facility] [address] [place], [address] COMM . Normal . [facility] Comment on above: Order Comment: Speci men Comment: [id number] Specimen Comment: No. of containers..01 ThinPrep Vial Performed By: #### L 7400.0280 #### [facility] [address] [place], [place], [id number] COMMENT Comment Normal . [facility] Comment on above: Order Comment: Speci men Comment: [id number] Specimen Comment: No. of containers..01 ThinPrep Vial Result Comment: This liquid based ThinPrep(R) pap test was screened with the use of an image guided system. Performed By: #### L 7400.0280 #### [facility] [address] [place], [address] DIAG Comment Normal . [facility] Comment on above: Order Comment: Speci men Comment: [id number] Specimen Comment: No. of containers..01 ThinPrep Vial Result Comment: NEGA TIVE FOR INTRAEPITHELIAL LESION OR MALIGNANCY. CELLULAR CHANGES ASSOCIATED WITH INFLAMMATION ARE PRESENT. Performed By: #### L 7400.0280 #### [facility] [address] [place], [address] HPV APTIMA, HR Negative Normal Negative [facility] Comment on above: Order Comment: Speci men Comment: [id number] Specimen Comment: No. of containers..01 ThinPrep Vial Result Comment: This nucleic acid amplification test detects fourteen high- risk HPV types (16,18,31,33,35,39,45,51,52,56,58,59,66,68) without differentiation. Performed By: #### L 7400.0280 #### [facility] [address] [place], [address] HPV Genna Rfx Comment Normal . [facility] Comment on above: Order Comment: Speci men Comment: [id number] Specimen Comment: No. of containers..01 ThinPrep Vial Result Comment: Crit eria not met, HPV Genotype not performed. Performed at: [address] [id number] Biostatistician: Abbie Siu MD, Phone: [phone] Performed at: =[address] [id number] Biostatistician: Abbie Siu MD, Phone: [phone] Performed By: #### L 7400.0280 #### [facility] [address] [place], [place], [address] PAPSMR Comment Normal . [facility] Comment on above: Order Comment: Speci men Comment: [id number] Specimen Comment: No. of containers..01 ThinPrep Vial Result Comment: The Pap smear is a screening test designed to aid in the detection of premalignant and malignant conditions of the uterine cervix. It is not a diagnostic procedure and should not be used as the sole means of detecting cervical cancer. Both false-positive and false-negative reports do occur. Performed By: #### L 7400.0280 #### [facility] [address] [place], [place], [id number] PERFORM Comment Normal . [facility] Comment on above: Order Comment: Speci men Comment: [id number] Specimen Comment: No. of containers..01 ThinPrep Vial Result Comment: Hipolito Fields, Battalion Chief Performed By: #### L 7400.0280 #### [facility] [address] [place], [place], [address] Cervical or vaginal specimen microscopic examination by liquid based cytology (reportOrdered By: Carmen Perdomo on 05-03-2024 Cytology report Cyto stain.thin prep Doc (Cvx/Vag) Comment . [facility] Comment on above: Criteria not met, HP V Genotype not performed.Performed at: [address] [id number] Director: Abbie Siu MD, Phone: [phone] at: =[address] [id number] Director: Abbie Siu MD, Phone: [phone] Cervical or vagninal specime n microscopic examination by cytology stain (reported asOrdered By: Carmen Perdomo on 05-03-2024 Cytology report Cyto stain Doc (Cvx/Vag) Comment . [facility] Comment on above: The Pap smear is a s creening test designed to aid in thedetection of premalignant and malignant conditions of theuterine cervix. It is not a diagnostic procedure andshould not be used as the sole means of detecting cervicalcancer. Both false-positive and false-negative reports dooccur. Turn Out Worker Cyto stain Nom (C vx/Vag) [ID]Ordered By: Carmen Perdomo on 05-03-2024 Pap Smear Performed By Comment . [facility] Comment on above: Soco Fields, Cyto technologist Cytology report Cyto stain D oc (Cvx/Vag)Ordered By: Carmen Perdomo on 05-03-2024 Thin Prep Pap Smear Comment . [facility] Comment on above: The Pap smear is a s creening test designed to aid in thedetection of premalignant and malignant conditions of theuterine cervix. It is not a diagnostic procedure andshould not be used as the sole means of detecting cervicalcancer. Both false-positive and false-negative reports dooccur. Cytology report Cyto stain.t hin prep Doc (Cvx/Vag)Ordered By: Carmen Perdomo on 05-03-2024 HPV Genotype Special Info Comment . [facility] Comment on above: Criteria not met, HP V Genotype not performed.Performed at: [address] [id number] Director: Abbie Siu MD, Phone: [phone] at: =[address] [id number] Director: Abbie Siu MD, Phone: [phone] Detection in cervical specim en of any of human papilloma virus (HPV) 16, 18, 31, 33,Ordered By: Carmen Perdomo on 05-03-2024 HPV 16+18+31+33+35+39+45+5 1+52+56+58+59+66+68 DNA Probe+sig amp Ql (Cvx) Negative Negative [facility] Comment on above: This nucleic acid am plification test detects fourteen high- risk HPV types (16,18,31,33,35,39,45,51,52,56,58,59,66,68)without differentiation. HPV 16+18+31+33+35+39+45+51+ 52+56+58+59+66+68 DNA Probe+sig amp Ql (Cvx)Ordered By: Carmen Perdomo on 05-03-2024 Human Papillomavirus High Risk Negative Negative [facility] Comment on above: This nucleic acid am plification test detects fourteen high- risk HPV types (16,18,31,33,35,39,45,51,52,56,58,59,66,68)without differentiation. Image-guided ThinPrep PapOrd ered By: Carmen Perdomo on 05-03-2024 Pap Smear Note Comment . [facility] Comment on above: This liquid based Th inPrep(R) pap test was screened withthe use of an image guided system. Image-guided liquid-based Pa pOrdered By: Carmen Perdomo on 05-03-2024 Pap Smear Diagnosis Comment . [facility] Comment on above: NEGATIVE FOR INTRAEP ITHELIAL LESION OR MALIGNANCY.CELLULAR CHANGES ASSOCIATED WITH INFLAMMATION ARE PRESENT. Laboratory - CytologyOrdered By: Carmen Perdomo on 05-03-2024 Turn Out Worker Cyto stain Nom (Cvx/Vag) [ID] Comment . [facility] Comment on above: Soco Fields Cyto technologist Laboratory - Miscellaneous t estsOrdered By: Carmen Perdomo on 05-03-2024 Service comment (Unsp spec) [Interp] . . [facility] No Panel InformationOrdered By: Carmen Perdomo on 05-03-2024 Pap Smear Specimen Adequacy Comment . [facility] Comment on above: Satisfactory for rosalinda luation. Endocervical and/or squamous metaplasticcells (endocervical component) are present. 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 Is patient in pain?: No Allergies No Known Allergies Allergy (Verified 05/03/24 12:06) Medications ???Medication ???Instructions ???Recorded ???Confirmed ???Type [id number]-iis-Zx-FA 1 mg tab PO 01/11/22 05/03/24 History tablet metformin 500 mg tablet mg PO 04/21/23 05/03/24 History escitalopram oxalate 20 mg tablet 20 mg PO QDAY 03/17/24 03/17/24 H istory (Lexapro) metoprolol succinate 100 mg 100 mg PO BID 03/17/24 03/17/24 Hi story tablet,extended release 24 hr Is last menstrual period known: Yes Last Menstrual Period: 04/09/24 Post menopausal: No Patient : No : No PFSH Medical History (Updated 03/17/24 @ 08:13 by Kadie Smith) HPV test positive Herpes simplex type 2 infection Hypertension Gallstone Acute thoracic myofascial strain Polycystic disease, ovaries Depression Migraine Surgical History (Updated 04/21/23 @ 11:13 by Janay Boss) History of laparoscopic cholecystectomy Family History (Updated 03/17/24 @ 08:15 by Kadie Smith) Brother Alcoholism Colon cancer Myocardial infarction, Onset Age: 44 Mother Depression Father Diabetes Hypertension Grandmother CVA (cerebral vascular accident) Grandmother Thyroid disorder Uterine cancer Other Cancer Social History (Updated 04/21/23 @ 11:16 by Janay Boss) adopted: No household members: spouse and children housing: condominium number of children: 1 current occupational status: employed current occupation: [employer] pets and animals: Yes pets and animals: cat(s) history of recent travel: No sexually active: Yes Smoking Status: Never smoker second hand exposure: No alcohol intake: never substance use type: does not use well-balanced diet: daily or most days caffeine: Yes Type: coffee Number of servings: 1 during the past year weight has: decreased > 10 lbs what type of physical activity do you participate in: none baylee/uatsdin: None seatbelt use: always do you feel safe at home: Yes additional social history: - Parth HPI Encounter for routine gynecological examination Details: SHU GASPAR is a 33 year old who presents for annual exam. Would like to TTC with in next year. Metformin for PCOS-regular cycles Last PAP: 2021 History of abnormal PAP: yes- 2012 +HPV colp normal Last mammogram: age 38 History of abnormal mammogram: Colon cancer screenin-nl Brother with HX of colon caner Other preventative health care screenings: PCP Female Reproductive History Last Menstrual Period: 04/09/24 Cycle Length: 21-35 Bleeding Duration: 4 Questions: metorrhagia: No, sexually active: Yes, dyspareunia: No and PCB: No ROS Const Constitutional: Reports system reviewed and no additional complaints, except as documented Cardio Card: Reports system reviewed and no additional complaints, except as documented Resp Resp: Reports system reviewed and no additional complaints, except as documented GI GI: Reports system reviewed and no additional complaints, except as documented : Reports system reviewed and no additional complaints, except as documented; Denies difficulty voiding, dysuria or urinary frequency Skin Skin/Breast: Reports system reviewed and no additional complaints, except as documented Neuro Neuro: Reports system reviewed and no additional complaints, except as documented Psych Psych: Reports system reviewed and no additional complaints, except as documented; Denies anhedonia, anxiety or depression Exam Const General: cooperative, healthy appearing, comfortable and no acute distress Orientation: alert, awake and oriented x3 Neck Neck: normal visual inspection and full ROM Thyroid: thyroid normal Chest Breast inspection: normal inspection of the breasts and normal inspection of the axillae Breast palpation: normal palpation of the breasts and normal palpation of the axillae Resp Effort Inspection: normal respiratory effort, able to speak in complete sentences and symmetric chest movement GI Inspection: normal to inspection Palpation: soft Rectal Exam: visual inspection normal External Female Exam: normal external appearance and normal appearance of the urethra Urethra: normal appearance of the urethra Speculum Exam - Vagina: no (more content not included)... Normal [facility] Service comment (Unsp spec) [Interp]Ordered By: Carmen Perdomo on 05-03-2024 Pap Smear Comment (3) . [facility]Auto Diffon 08-05-2023 Basophil, Absolute 0.1 10 3/mcL Normal 0.0-0.2 [facility] ([place]) Comment on above: Performed By: #### B MP, DIMER, CBC, ADIFF, GFR, MDW, ANEU, TROPHS #### [address] [address] Basophils/100 WBC (Bld) 0.8 % Normal 0.0-2.5 [facility] ([place]) Comment on above: Performed By: #### B MP, DIMER, CBC, ADIFF, GFR, MDW, ANEU, TROPHS #### [address] [address] Eosinophil, Absolute 0.3 10 3/mcL Normal 0.0-0.4 [facility] ([place]) Comment on above: Performed By: #### B MP, DIMER, CBC, ADIFF, GFR, MDW, ANEU, TROPHS #### [address] [address] Eosinophils/100 WBC (Bld) 2.7 % Normal 0.0-7.0 [facility] ([place]) Comment on above: Performed By: #### B MP, DIMER, CBC, ADIFF, GFR, MDW, ANEU, TROPHS #### [address] [address] Lymphocyte, Absolute 2.9 10 3/mcL Normal 0.8-3.9 [facility] ([place]) Comment on above: Performed By: #### B MP, DIMER, CBC, ADIFF, GFR, MDW, ANEU, TROPHS #### [address] [address] Lymphocytes/100 WBC (Bld) 29.5 % Normal 10.0-50.0 [facility] ([place]) Comment on above: Performed By: #### B MP, DIMER, CBC, ADIFF, GFR, MDW, ANEU, TROPHS #### [address] [address] Monocyte, Absolute 0.5 10 3/mcL Normal 0.2-1.0 [facility] ([place]) Comment on above: Performed By: #### B MP, DIMER, CBC, ADIFF, GFR, MDW, ANEU, TROPHS #### [address] [address] Monocytes/100 WBC (Bld) 5.2 % Normal 1.7-13.0 [facility] ([place]) Comment on above: Performed By: #### B MP, DIMER, CBC, ADIFF, GFR, MDW, ANEU, TROPHS #### [address] [address] Neutrophils/100 WBC (Bld) 61.8 % Normal 37.0-80.0 [facility] ([place]) Comment on above: Performed By: #### B MP, DIMER, CBC, ADIFF, GFR, MDW, ANEU, TROPHS #### [address] [address] .GFRon 08-05-2023 GFR 100 ml/min/1.73sqm Normal [facility] ([place]) Comment on above: Result Comment: GFR Population mean for , Non- Americans Ages 20-29 = 116 mL/min/1.73 sq.m. Ages 30-39 = 107 mL/min/1.73 sq.m. Ages 40-49 = 99 mL/min/1.73 sq.m. Ages 50-59 = 93 mL/min/1.73 sq.m. Ages 60-69 = 85 mL/min/1.73 sq.m. Ages 70+ = 75 mL/min/1.73 sq.m. Chronic Kidney Disease: Less than 60 mL/min/1.73 square meters End Stage Renal Disease: Less than 15 mL/min/1.73 square meters Performed By: #### B MP, DIMER, CBC, ADIFF, GFR, MDW, ANEU, TROPHS #### [address] [address] GFR Non- 82 ml/min/1.73sqm Normal [facility]) Comment on above: Result Comment: GFR Population mean for , Non- Americans Ages 20-29 = 116 mL/min/1.73 sq.m. Ages 30-39 = 107 mL/min/1.73 sq.m. Ages 40-49 = 99 mL/min/1.73 sq.m. Ages 50-59 = 93 mL/min/1.73 sq.m. Ages 60-69 = 85 mL/min/1.73 sq.m. Ages 70+ = 75 mL/min/1.73 sq.m. Chronic Kidney Disease: Less than 60 mL/min/1.73 square meters End Stage Renal Disease: Less than 15 mL/min/1.73 square meters Performed By: #### B MP, DIMER, CBC, ADIFF, GFR, MDW, ANEU, TROPHS #### [address] [address] .MDWon 08-05-2023 Monocyte Distribution Width 19.22 Normal 0.00-20.00 [facility] ([place]) Comment on above: Result Comment: For ED adult patients suspected of sepsis, MDW<=20.0 does not rule out sepsis or risk of sepsis Performed By: #### B MP, DIMER, CBC, ADIFF, GFR, MDW, ANEU, TROPHS #### [address] [address] .NEUABSon 08-05-2023 Neutrophil, Absolute 6.2 10 3/mcL Normal 2.9-6.2 [facility] ([place]) Comment on above: Performed By: #### B MP, DIMER, CBC, ADIFF, GFR, MDW, ANEU, TROPHS #### [address] [address] BMPon 08-05-2023 BUN/Creatinine Ratio 18 ratio Normal 7-27 [facility]) Comment on above: Performed By: #### B MP, DIMER, CBC, ADIFF, GFR, MDW, ANEU, TROPHS #### [address] [address] Calcium [Mass/Vol] 9.2 mg/dL Normal 8.4-10.2 [facility] ([place]) Comment on above: Performed By: #### B MP, DIMER, CBC, ADIFF, GFR, MDW, ANEU, TROPHS #### [address] [address] Chloride [Moles/Vol] 104 mmol/L Normal 98-107 [facility] ([place]) Comment on above: Performed By: #### B MP, DIMER, CBC, ADIFF, GFR, MDW, ANEU, TROPHS #### [address] [address] CO2 [Moles/Vol] 27 mmol/L Normal 22-29 [facility] ([place]) Comment on above: Performed By: #### B MP, DIMER, CBC, ADIFF, GFR, MDW, ANEU, TROPHS #### [address] [address] Creatinine [Mass/Vol] 0.80 mg/dL Normal 0.55-1.02 [facility] ([place]) Comment on above: Performed By: #### B MP, DIMER, CBC, ADIFF, GFR, MDW, ANEU, TROPHS #### [address] [address] Electrolyte Balance 11.0 mEq/L Normal 4.0-15.0 [facility] ([place]) Comment on above: Performed By: #### B MP, DIMER, CBC, ADIFF, GFR, MDW, ANEU, TROPHS #### [address] [address] Glucose [Mass/Vol] 100 mg/dL Normal 70-105 [facility] ([place]) Comment on above: Performed By: #### B MP, DIMER, CBC, ADIFF, GFR, MDW, ANEU, TROPHS #### [address] [address] Potassium [Moles/Vol] 3.6 mmol/L Normal 3.5-5.1 [facility] ([place]) Comment on above: Performed By: #### B MP, DIMER, CBC, ADIFF, GFR, MDW, ANEU, TROPHS #### [address] [address] Sodium [Moles/Vol] 142 mmol/L Normal 136-145 [facility] ([place]) Comment on above: Performed By: #### B MP, DIMER, CBC, ADIFF, GFR, MDW, ANEU, TROPHS #### [address] [address] Urea nitrogen [Mass/Vol] 14 mg/dL Normal 7-18 [facility] ([place]) Comment on above: Performed By: #### B MP, DIMER, CBC, ADIFF, GFR, MDW, ANEU, TROPHS #### [address] [address] CBCon 08-05-2023 Erythrocyte distribution width (RBC) [Ratio] 13.0 % Normal 11.5-14.5 [facility] ([place]) Comment on above: Performed By: #### B MP, DIMER, CBC, ADIFF, GFR, MDW, ANEU, TROPHS #### [address] [address] Hematocrit (Bld) [Volume fraction] 37.2 % Normal 37.0-47.0 [facility] ([place]) Comment on above: Performed By: #### B MP, DIMER, CBC, ADIFF, GFR, MDW, ANEU, TROPHS #### [address] [address] Hgb 12.5 G/dL Normal 12.0-16.0 [facility] ([place]) Comment on above: Performed By: #### B MP, DIMER, CBC, ADIFF, GFR, MDW, ANEU, TROPHS #### [address] [address] MCH (RBC) [Entitic mass] 29.6 pg Normal 27.0-31.2 [facility] ([place]) Comment on above: Performed By: #### B MP, DIMER, CBC, ADIFF, GFR, MDW, ANEU, TROPHS #### [place] [address] MCHC 33.5 G/dL Normal 33.0-37.0 [facility] ([place]) Comment on above: Performed By: #### B MP, DIMER, CBC, ADIFF, GFR, MDW, ANEU, TROPHS #### [address] [address] MCV (RBC) [Entitic vol] 88.4 fL Normal 80.0-94.0 [facility] ([place]) Comment on above: Performed By: #### B MP, DIMER, CBC, ADIFF, GFR, MDW, ANEU, TROPHS #### [address] [address] Platelet 365 10 3/mcL Normal 130-400 [facility] ([place]) Comment on above: Performed By: #### B MP, DIMER, CBC, ADIFF, GFR, MDW, ANEU, TROPHS #### [address] [address] Platelet mean volume (Bld) [Entitic vol] 7.6 fL Normal 7.4-10.4 [facility] ([place]) Comment on above: Performed By: #### B MP, DIMER, CBC, ADIFF, GFR, MDW, ANEU, TROPHS #### [address] [address] RBC 4.21 10 6/mcL Normal 4.20-5.40 [facility] ([place]) Comment on above: Performed By: #### B MP, DIMER, CBC, ADIFF, GFR, MDW, ANEU, TROPHS #### [address] [address] WBC 10.0 10 3/mcL Normal 4.6-10.8 [facility] ([place]) Comment on above: Performed By: #### B MP, DIMER, CBC, ADIFF, GFR, MDW, ANEU, TROPHS #### [address] [address] [address] ANGIOGRAPHY CHEST W/CONTR Javier 08-05-2023 CT ANGIOGRAPHY CHEST W/CONTRAST ORIGINAL EXAMINATION: CTA OF THE CHEST 08/05/2023 7:04 pm TECHNIQUE: CTA of the chest was performed after the administration of intravenous contrast. Multiplanar reformatted images are provided for review. MIP images are provided for review. Automated exposure control, iterative reconstruction, and/or weight based adjustment of the mA/kV was utilized to reduce the radiation dose to as low as reasonably achievable. COMPARISON: None HISTORY: ORDERING SYSTEM PROVIDED HISTORY: Reason for Exam: SOB x3-7 days, increasing. chest pain; suspect PE FINDINGS: No acute osseous abnormality. No acute soft tissue abnormality. The included images of the upper abdomen are noncontributory. The thyroid is unremarkable. No pathologically enlarged supraclavicular, axillary, mediastinal or hilar lymph nodes. The heart is normal size. No pericardial effusion. The thoracic aorta is normal caliber. The pulmonary arteries are adequately opacified. No pleural effusion or pneumothorax. The trachea and mainstem bronchi are patent. The lungs are clear. No suspicious pulmonary nodule. IMPRESSION: No pulmonary embolism or other acute process. I have personally reviewed the images of this examination and agree with the resident's findings and interpretation. Interpreted by: Gt Krishna Preliminary Report By: Phi Juárez Electronically signed By Gt Krishna Dictated Date: 08/05/2023 7:11:50 PM Prelim Date: 08/05/2023 9:17:05 PM Sign Date: 08/05/2023 9:17:05 PM Ordering Provider: DARIUS Mo [facility]) DIMERon 08-05-2023 D-Dimer 619 ng/mL D-DU High 0-230 [facility]) Comment on above: Result Comment: Resu lts reported in D-DU ng/mL. Positive for D-dimer. A positive D-Dimer may occur in the following: DVT, PE, DIC, Trauma, Cancer, Sepsis, , Rheumatoid arthritis, Myocardial infarction and Cirrhosis. The presence of Rheumatoid Factor and HAMA (human mouse antibody) produces an overestimation of test results. The result of the D-Dimer test should be evaluated in the context of all the clinical and laboratory data available. In those instances where the laboratory result does not agree with the clinical evaluation, additional tests should be performed accordingly. If the D-Dimer result is used to exclude DVT or PE, the recommended cutoff value is less than 230 ng/mL. The D-Dimer result should not be used alone to rule in DVT/PE, but should be used in conjunction with a clinical pretest probability (PTP)assessment model to exclude venous thromboembolism (VTE) in outpatients suspected of deep venous thrombosis (DVT) and pulmonary embolism (PE). Performed By: #### B MP, DIMER, CBC, ADIFF, GFR, MDW, ANEU, TROPHS #### [id number] [place], [place] [address] LABORATORYOrdered By: Mary Herrera on 08-05-2023 HCG ( test) Ql Negative (08/05/23 9:51 PM) Normal AO Manual Urine SS test (u) int Not detected Invalid Interpretation Code AO Manual Urine SS LABORATORYOrdered By: SYSTEM SYSTEM on 08-05-2023 Basophil, Absolute 0.1 103/mcL Normal 0.0 - 0.2 10^3/mcL AO Workflow SS Basophils/100 WBC (Bld) 0.8 % Normal 0.0 - 2.5 % AO Workflow SS Calcium [Mass/Vol] 9.2 mg/dL Normal 8.4 - 10. 2 mg/dL AO ADM SS Chloride [Moles/Vol] 104 mmol/L Normal 98 - 10 7 mmol/L AO ADM SS CO2 [Moles/Vol] 27 mmol/L Normal 22 - 29 mmol/L AO ADM SS Creatinine [Mass/Vol] 0.80 mg/dL Normal 0.55 - 1.02 mg/dL AO ADM SS Electrolyte Balance 11.0 mEq/L Normal 4.0 - 15 .0 mEq/L AO ADM SS Eosinophil, Absolute 0.3 103/mcL Normal 0.0 - 0 .4 10^3/mcL AO Workflow SS Eosinophils/100 WBC (Bld) 2.7 % Normal 0.0 - 7.0 % AO Workflow SS Erythrocyte distribution width (RBC) [Ratio] 13.0 % Normal 11.5 - 14.5 % AO Workflow SS GFR/1.73 sq M.predicted among blacks MDRD (S/P/Bld) [Vol rate/Area] 100 ml/min/1.73sqm Invalid Interpretation Code AO Chemistry S Comment on above: Interpretive Data: GFR Population mean for , Non- Americans Ages 20-29 = 116 mL/min/1.73 sq.m. Ages 30-39 = 107 mL/min/1.73 sq.m. Ages 40-49 = 99 mL/min/1.73 sq.m. Ages 50-59 = 93 mL/min/1.73 sq.m. Ages 60-69 = 85 mL/min/1.73 sq.m. Ages 70+ = 75 mL/min/1.73 sq.m. Chronic Kidney Disease: Less than 60 mL/min/1.73 square meters End Stage Renal Disease: Less than 15 mL/min/1.73 square meters GFR/1.73 sq M.predicted among non-blacks MDRD (S/P/Bld) [Vol rate/Area] 82 ml/min/1.73sqm Invalid Interpretation Code AO Chemistry S Comment on above: Interpretive Data: GFR Population mean for , Non- Americans Ages 20-29 = 116 mL/min/1.73 sq.m. Ages 30-39 = 107 mL/min/1.73 sq.m. Ages 40-49 = 99 mL/min/1.73 sq.m. Ages 50-59 = 93 mL/min/1.73 sq.m. Ages 60-69 = 85 mL/min/1.73 sq.m. Ages 70+ = 75 mL/min/1.73 sq.m. Chronic Kidney Disease: Less than 60 mL/min/1.73 square meters End Stage Renal Disease: Less than 15 mL/min/1.73 square meters Glucose [Mass/Vol] 100 mg/dL Normal 70 - 105 mg/dL AO ADM SS Hematocrit (Bld) [Volume fraction] 37.2 % Normal 37.0 - 47.0 % AO Workflow SS Hemoglobin (Bld) [Mass/Vol] 12.5 G/dL Normal 12.0 - 16.0 G/dL AO Workflow SS Lymphocyte, Absolute 2.9 103/mcL Normal 0.8 - 3 .9 10^3/mcL AO Workflow SS Lymphocytes/100 WBC (Bld) 29.5 % Normal 10.0 - 50.0 % AO Workflow SS MCH (RBC) [Entitic mass] 29.6 pg Normal 27.0 - 31.2 pg AO Workflow SS MCHC 33.5 G/dL Normal 33.0 - 37.0 G/dL AO Workflow SS MCV (RBC) [Entitic vol] 88.4 fL Normal 80.0 - 94.0 fL AO Workflow SS Monocyte distribution width Auto (Bld) [Entitic vol] 19.22 1 Normal 0.00 - 20.00 AO Workflow SS Comment on above: Result Comment: For ED adult patients suspected of sepsis, MDW<=20.0 does not rule out sepsis or risk of sepsis Monocyte, Absolute 0.5 103/mcL Normal 0.2 - 1.0 10^3/mcL AO Workflow SS Monocytes/100 WBC (Bld) 5.2 % Normal 1.7 - 13.0 % AO Workflow SS Neutrophil, Absolute 6.2 103/mcL Normal 2.9 - 6 .2 10^3/mcL AO Workflow SS Neutrophils/100 WBC (Bld) 61.8 % Normal 37.0 - 80.0 % AO Workflow SS Platelet mean volume (Bld) [Entitic vol] 7.6 fL Normal 7.4 - 10.4 fL AO Workflow SS Platelets (Bld) [#/Vol] 365 103/mcL Normal 130 - 400 10^3/mcL AO Workflow SS Potassium [Moles/Vol] 3.6 mmol/L Normal 3.5 - 5.1 mmol/L AO ADM SS RBC (Bld) [#/Vol] 4.21 106/mcL Normal 4.20 - 5.4 0 10^6/mcL AO Workflow SS Sodium [Moles/Vol] 142 mmol/L Normal 136 - 145 mmol/L AO ADM SS Troponin I.cardiac DL <= 0.01 ng/mL [Mass/Vol] ng/L Normal 0 - 51 ng/L AO ADM SS Comment on above: Interpretive Data: H igh Sensitive Troponin I Reference Ranges: Female: 0-51 ng/L Male: 0-76 ng/L Testing performed on [employer] using a homogeneous sandwich chemiluminescent immunoassay based on Digital Message Display technology. Urea nitrogen [Mass/Vol] 14 mg/dL Normal 7 - 18 mg/dL AO ADM SS Urea nitrogen/Creatinine [Mass ratio] 18 ratio Normal 7 - 27 ratio AO ADM SS WBC (Bld) [#/Vol] 10.0 103/mcL Normal 4.6 - 10.8 10^3/mcL AO Workflow SS LABORATORYOrdered By: Stan bosch on 08-05-2023 Fibrin D-dimer DDU (PPP) [Mass/Vol] 619 ng/mL D-DU High 0 - 230 ng/mL D-DU AO [employer] SS Comment on above: Result Comment: Resu lts reported in D-DU ng/mL. Positive for D-dimer. A positive D-Dimer may occur in the following: DVT, PE, DIC, Trauma, Cancer, Sepsis, , Rheumatoid arthritis, Myocardial infarction and Cirrhosis. The presence of Rheumatoid Factor and HAMA (human mouse antibody) produces an overestimation of test results. Interpretive Data: T he result of the D-Dimer test should be evaluated in the context of all the clinical and laboratory data available. In those instances where the laboratory result does not agree with the clinical evaluation, additional tests should be performed accordingly. If the D-Dimer result is used to exclude DVT or PE, the recommended cutoff value is less than 230 ng/mL. The D-Dimer result should not be used alone to rule in DVT/PE, but should be used in conjunction with a clinical pretest probability (PTP)assessment model to exclude venous thromboembolism (VTE) in outpatients suspected of deep venous thrombosis (DVT) and pulmonary embolism (PE). PREGUon 08-05-2023 HCG ( test) Ql (U) Negative Normal [facility] ([place]) Comment on above: Performed By: #### B MP, DIMER, CBC, ADIFF, GFR, MDW, ANEU, TROPHS #### [address] [address] test (u) int Not detected Invalid Interpretation Code [facility] ([place]) Comment on above: Performed By: #### B MP, DIMER, CBC, ADIFF, GFR, MDW, ANEU, TROPHS #### [address] [address] TROPHSon 08-05-2023 High Sensitivity Troponin I <4 Normal 0-51 [facility] ([place]) Comment on above: Result Comment: High Sensitive Troponin I Reference Ranges: Female: 0-51 ng/L Male: 0-76 ng/L Testing performed on [employer] using a homogeneous sandwich chemiluminescent immunoassay based on Digital Message Display technology. Performed By: #### B MP, DIMER, CBC, ADIFF, GFR, MDW, ANEU, TROPHS #### [address] [address] XR CHEST 1 VIEWon 08-05-2023 XR CHEST 1 VIEW ORIGINAL EXAMINATION: ONE XRAY VIEW OF THE CHEST08/05/2023 4:53 pm COMPARISON: None HISTORY: ORDERING SYSTEM PROVIDED HISTORY: Reason for Exam: SOB/cough/fever FINDINGS: Cardiomediastinal contours are within normal limits. No focal consolidation or pulmonary edema. No pleural effusion or visible pneumothorax. The bony thorax appears intact. IMPRESSION: No acute cardiopulmonary process. I have personally reviewed the images of this examination and agree with the resident's findings and interpretations. Interpreted by: Hernan Marvin MD Preliminary Report By: Phi Juárez Electronically signed By Hernan Marvin MD Dictated Date: 08/05/2023 5:03:34 PM Prelim Date: 08/05/2023 5:14:52 PM Sign Date: 08/05/2023 5:14:52 PM Ordering Provider: DARIUS Mo [facility] ([place]) JAW SKINNER - Office Visiton 02-06 JAW SKINNER - Office Visit Patient Discussion/Summary The patient was counseled regarding instructions for management, impressions and risks and benefits of treatment options. total time of encounter was 13 minutes and 13 minutes was spent counseling. Provider Impressions A: PP depression Contraceptive counseling P: OCP sent, discussed to monitor BP and if elevation occurring on OCP would stop and recommend IUD Review historical BPs w/ PCP, mostly normotensive but has occasions of elevation, ?CHTN Continue w/ plan of care for therapy RTO for APE or prn ALLY Nieto Chief Complaint A telephone visit (audio only) between the patient (at the originating site) and the provider (at the distant site) was utilized to provide this telehealth service. This is a telephone visit due to the COVID-19 Pandemic 6 wk PPV Attendant Child Activity Declined: MIKAELA Ty History of Present IllnessPt. to follow up on mood /BP increased Lexapro 20mg-increased from 10 a few weeks ago and does feel a good difference baby is much more calm-had milk protein allergy-baby is now on nutramigen enjoying being a parent more now, but still working on bonding-feels like she missed the first weeks of this and needs to catch up, has some guilt met w/ Dr. 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) GERD (gastroesophageal reflux disease) (530.81) (K21.9) Gestational hypertension (642.30) (O13.9) HBP (high blood pressure) (401.9) (I10) HSV infection (054.9) (B00.9) Insomnia (780.52) (G47.00) Marital disruption involving divorce (V61.03) (Z63.5) Morbid obesity (278.01) (E66.01) Oligomenorrhea (626.1) (N91.5) PCOS (polycystic ovarian syndrome) (256.4) (E28.2) Plantar fasciitis (728.71) (M72.2) exam (V24.2) (Z39.2) state (V24.2) (Z39.2) Refraction error (367.9) (H52.7) Vaginal candidiasis (112.1) (B37.31) Weight gain (783.1) (R63.5) Past Medical History Problems History of Abnormal Papanicolaou smear of cervix with positive human papilloma virus (HPV) test (795.09,079.4) (R87.618) History of Bacterial vaginosis (616.10,041.9) (N76.0,B96.89) Resolved Date: 15 Jan 2022 History of Cervical cancer screening (V76.2) (Z12.4) Resolved Date: 28 Jan 2019 History of Class 3 severe obesity due to excess calories with body mass index (BMI) of 40.0 to 44.9 in adult (278.01,V85.41) (E66.01,Z68.41) Resolved Date: 01 May 2021 History of Contraception management (V25.9) (Z30.9) Resolved Date: 15 Jan 2022 History of COVID-19 (079.89) (U07.1) Resolved Date: 15 Jan 2022 History of Depression with anxiety (300.4) (F41.8) History of Encounter for preconception consultation (V26.49) (Z31.69) Resolved Date: 15 Jan 2022 History of Fertility testing (V26.21) (Z31.41) Resolved Date: 15 Jan 2022 History of Flu-like symptoms (780.99) (R68.89) Resolved Date: 15 Jan 2022 History of High risk , antepartum (V23.9) (O09.90) Resolved Date: 15 Jan 2022 History of acne (V13.3) (Z87.2) History of female infertility (V13.29) (Z87.42) Resolved Date: 15 Jan 2022 History of fever (V13.89) (Z87.898) Resolved Date: 15 Jan 2022 History of gastritis (V12.79) (Z87.19) History of herpes simplex infection (V12.09) (Z86.19) History of infertility (V13.29) (Z87.42) Resolved Date: 15 Jan 2022 History of (V13.29) Resolved Date: 15 Jan 2022 History of Missed menses (626.4) (N92.6) Resolved Date: 15 Jan 2022 History of Need for Tdap vaccination (V06.1) (Z23) Resolved Date: 15 Jan 2022 History of Polyhydramnios, third trimester, fetus 1 (657.03) (O40.3XX1) Resolved Date: 15 Jan 2022 History of Rubella non-immune status, antepartum (646.83,V15.83) (O09.899,Z28.39) Resolved Date: 15 Jan 2022 History of Screening for STDs (sexually transmitted diseases) (V74.5) (Z11.3) Resolved Date: 15 Jan 2022 History of Women's annual routine gynecological examination (V72.31) (Z01.419) Resolved Date: 28 Jan 2019 Surgical History Problems History of Cholecystectomy History of Colposcopy Family History Father Family history of diabetes mellitus (V18.0) (Z83.3) Family history of hypertension (V17.49) (Z82.49) Maternal Grandmother Family history of hypothyroidism (V18.19) (Z83.49) Family history of malignant neoplasm of uterus (V16.49) (Z80.49) Social History Problems Always uses seat belt D (more content not included)... Normal Moped Psychiatry Adulton 2 Psychiatry Adult Diagnoses/Problems Assessed Depression (311) (F32.A) *Orders Depression Start: Escitalopram Oxalate 20 MG Oral Tablet; Take 1 tablet daily Adult Psychology Referral Evaluation and Treatment Evaluate AND Treat for PMADS Status: Hold For - Scheduling Requested for: [id number] Depression (311) (F32.A) Provider Impressions IMP: 31 yo MFG1P! referred by OB. PMH May 2021, in September 2021. together for one yr. Working on [employer] Employee. Delivered baby boyChad, 01/05/22, unplanned via at 39wga. . Hx of depression and anxiety Escitalopram 20 mg since age 15 yo, Now at 20 mg for about 7 days, no SEs Now baby is sleeping much better for 12-14 hours per day. Sleep for patient fine at night. Mood most of the time is 'happy' as of past week, prior 7 weeks c/o helpless, sad, angry, irritable, lacked patience, at that time getting 3-4 hours sleep for first 6 weeks. [place] like want to escape, no SI/HI. Had some ITS , regretted not wanting to be a mother, made a mistake, verbalizes loving baby, Self rates attachment 80-85% , and higher than earlier 25% Nehemias; improved .Last week has increased socializing, spending time, trying to get out of home. No anhedonia no social isolation. No difficulty concentrating, completing ADLs. , in laws, mother supportive. Plan to MIL to care for baby while patient RTW . Low Moderate Risk for Harm d/t past psychiatric hx, suicide attempt. Protected by marriage, employment, baby in home, taking medication and help seeking. Psychoeducation provided for s/sx, risks, course and treatment of PMADs. Discussed cont on same dose of SSRI for now, will increased as indicated. Recommend ind therapy and contacts were given. Self care practices reviewed ie optimize sleep, enlist help, and use distraction, thought stopping, logic for ITs. Diagnoses JOSH w Features OCD MDD, Moderate Peripartum Onset, Recurrent No Psychosis Two months pp Treatment Cont Esc same dose for now will increase as able Refer to ind therapy ON FML w/ RTW date 03/29/21 Online resources for PMADs were given Chief Complaint An interactive audio and video telecommunication system which permits real time communications between the patient (at the originating site) and provider (at the distant site) was utilized to provide this telehealth service. Verbal consent was requested and obtained from SHU GASPAR on this date, 02/24/2022 12:30 PM , for a telehealth visit. History of Present Illness SHU is a 31 yo MFG1P! referred by OB. PMH Hx of depression w/ SI Attempt, and anxiety treated w/ Escitalopram 20 mg since age 15 yo. in May 2021, in September 2021, together for one yr. Working on [employer] Employee Delivered baby boy, Chad, 01/05/22, from unplanned via at 39wga. Not a traumatic delivery. Complications developed afterwards w/ HTN, treated by medications, not BP almost at baselines. Started BFing, unable to sustain, less than week w/ formula baby developed severe milk allergy, now new formula 'done wonders', gaining weight Reduced medication to 10mg in . Since delivery anxiety is high and dose increased to 20 mg for about 7 days. Mood doing better than before as thought baby had colic. Aat that time baby not sleeping not eating, baby screaming, crying all day and night, very trying. Now baby sleeping much better for 12-14 hours per day. Sleep for patient fine at night for total of about 8 hours, includes naps. Mood most of the time is 'happy' as of past week, previously for 7 weeks helpless, sad, angry, irritable, lacked patience, at that time getting 3-4 hours sleep for first 6 weeks. In law live nearby and helpful, parents one hour away. is fantastic. [place] like want to escape, no SI/HI. Had some ITS , ie regretting not wanting to be a mother, made a mistake, verbalizes loving baby, Self rates attachment 80-85%, and higher than earlier at 25% Nehemias; improved .Last week has increased socializing, trying to get out of home, had date night w/ . No anhedonia no social isolation. No difficulty concentrating, completing ADLs. ROS ANXIETY: No panic, no OCD, no catastrophic thinking self rated anxiety in past week 09/14 , gets anxious if baby not getting enough sleep. WILL Denies PTSD: No abuse, trauma, or neglect. No FBs, nightmares, intrusive recall PSYCHOSIS. Denies SUBSTANCE USE: PMH Diagnosed PP HTN Routine Medication: Labetalol , no longer taking off for one week 130/80 ALLERGIES NKDA Contraception Condoms COVID Vax [facility] Out patient Treatment - October 2020 'had mental breakdown left , had an affair, high stress in job. took HAYLEY from work, Severe MDD, w/ SI saw psychMD and psychologist for ind therapist . Began divorce proceeding. Moved in w. parents. In Patient Admission : None Medications: Trazodone, Zolpidem , Escitalopram, Lorazepam, SI Hx; + SI in 2020, attempted SI August 2020 had gun in home wrote not to parents, had g (more content not included)... Normal [facility] No Panel Informationon 02-04 Never [facility] [address] DO Work Phone: Not depressed [facility] [address] DO Work Phone: 5 1 [facility] [address] DO Work Phone: Comment on above: Q1: As much as I alw ays couldQ2: As much as I ever didQ3: Yes, some of the timeQ4: No, not at allQ5: No, not at allQ6: No, most of the time I have coped quite wellQ7: No, not at allQ8: Not very oftenQ9: Only [id number]: Never JAW SKINNER - Visiton 02-04-2022 JAW SKINNER - Visit Chief Complaint PPV EPDS= 5 Declined Attendant Child Activity: LEONARDA Oquendo History of Present IllnessThe patient is being seen for follow up. The patient is status post vaginal delivery. Obstetrical complications include pre-eclampsia and After delivery. Delivery date was 01.05.22. The baby is a boy. The baby's name is Chad. weight was 7 lbs, 8 oz. complications include respiratory distress. He was circumcised. The baby is currently living at home. The baby is bottle feeding. She is a 1 Para 1. The patient has had no menses since delivery. For contraception, she uses nothing and uses oral contraceptives. The patient is currently asymptomatic. No associated symptoms are reported. Pt. here for PP visit SVB 01/05/22, happy with Diagnosed w/ GHTN, started on Labetolol at OSH about 1 week PP formula only now- did not go well lochia gone reports some urinary retention, able to go. No dysuria. no issues w/ bowels resumed intercourse, no pain. Considering OCPs mild episodes of tearfulness, no thoughts of self harm. Baby is colicky, can be overwhelming at times. Brought BP logs, mostly normotensive with a few outlier mild BPs. No headaches. Reports occasional lightheadedness,still taking Labetolol 100mg BID. No h/o CHTN prior to . Review of Systems Constitutional: no fever, no chills, no recent weight gain, no recent weight loss and no fatigue. Eyes: no eye pain, no vision problems and no dryness of the eyes. ENT: no hearing loss, no nosebleeds and no sinus congestion. Cardiovascular: no chest pain, no palpitations and no orthopnea. Respiratory: no shortness of breath, no cough and no wheezing. Gastrointestinal: no abdominal pain, no constipation, no nausea, no diarrhea and no vomiting. Genitourinary: no dysuria, no urinary incontinence, no vaginal dryness, no vaginal itching, no dyspareunia, no pelvic pain, no dysmenorrhea, no sexual problems, no change in urinary frequency, no vaginal discharge, no unexplained vaginal bleeding and no lesion/sore. Musculoskeletal: no back pain, no joint swelling and no leg edema. Integumentary: no rashes, no skin lesions, no nipple discharge, no breast pain and no breast lump. Neurological: no headache, no numbness and no dizziness. Psychiatric: no sleep disturbances, no anxiety and no depression. Endocrine: no hot flashes, no loss of hair and no hirsutism. Hematologic/Lymphatic: no swollen glands, no tendency for easy bleeding and no tendency for easy bruising. 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) GERD (gastroesophageal reflux disease) (530.81) (K21.9) Gestational hypertension (642.30) (O13.9) HBP (high blood pressure) (401.9) (I10) HSV infection (054.9) (B00.9) Insomnia (780.52) (G47.00) Marital disruption involving divorce (V61.03) (Z63.5) Morbid obesity (278.01) (E66.01) Oligomenorrhea (626.1) (N91.5) PCOS (polycystic ovarian syndrome) (256.4) (E28.2) Plantar fasciitis (728.71) (M72.2) state (V24.2) (Z39.2) Refraction error (367.9) (H52.7) Vaginal candidiasis (112.1) (B37.31) Weight gain (783.1) (R63.5) Past Medical History History of Abnormal Papanicolaou smear of cervix with positive human papilloma virus (HPV) test (795.09,079.4) (R87.618) History of Bacterial vaginosis (616.10,041.9) (N76.0,B96.89) History of Cervical cancer screening (V76.2) (Z12.4) History of Class 3 severe obesity due to excess calories with body mass index (BMI) of 40.0 to 44.9 in adult (278.01,V85.41) (E66.01,Z68.41) History of Contraception management (V25.9) (Z30.9) History of COVID-19 (079.89) (U07.1) History of Depression with anxiety (300.4) (F41.8) History of Encounter for preconception consultation (V26.49) (Z31.69) History of Fertility testing (V26.21) (Z31.41) History of Flu-like symptoms (780.99) (R68.89) History of High risk , antepartum (V23.9) (O09.90) History of acne (V13.3) (Z87.2) History of female infertility (V13.29) (Z87.42) History of fever (V13.89) (Z87.898) History of gastritis (V12.79) (Z87.19) History of herpes simplex infection (V12.09) (Z86.19) History of infertility (V13.29) (Z87.42) History of (V13.29) History of Missed menses (626.4) (N92.6) History of Need for Tdap vaccination (V06.1) (Z23) History of Polyhydramnios, third trimester, fetus 1 (657.03) (O40.3XX1) History of Rubella non-immune status, antepartum (646.83,V15.83) (O09.899,Z28.39) History of Screening for STDs (sexually transmitted diseases) (V74.5) (Z11.3) History of Women's annual routine gynecological examination (V72.31) (Z01.419) Surgical History History of Cholecystectomy History of Col (more content not included)... Normal Touchworks Tobacco Screening.on 022 Adult depression screening assessment No [email or web address] 2420 DO Work Phone: Fall risk assessment a) No falls within the last year [facility] DO Work Phone: Last menstrual period start date PP [facility] DO Work Phone: Tobacco use status [facility] b) No [facility]20 DO Work Phone: JAW SKINNER - Office Visiton 11 JAW SKINNER - Office Visit Diagnoses/Problems Assessed state (V24.2) (Z39.2) HBP (high blood pressure) (401.9) (I10) Provider Impressions Reviewed BPs. Continue labetalol 100 BID, monitor BPs BID and RTO in 2 wks. Hydrate and eat following visit. If headache does not resolve [facility]. Patient voiced understanding. Chief Complaint Patient here for B/P check c/o JEFFERS DOD 01/05/22 VD Attendant Child Activity declined Shanon COATES History of Present IllnessPatient presents for BP check. Using a new cuff and numbers are mostly 130s/80s. Had one 140/90. Has a little bit of a headache today but very mild. She has not hydrated or had much to eat today. No vision changes. No abdominal pain. Review of Systems Constitutional: no fever, no chills, no recent weight gain, no recent weight loss and no fatigue. Eyes: no eye pain, no vision problems and no dryness of the eyes. ENT: no hearing loss, no nosebleeds, no sinus congestion, no mouth sores and no sore throat. Cardiovascular: no chest pain, no palpitations and no orthopnea. Respiratory: no shortness of breath, no cough and no wheezing. Gastrointestinal: no abdominal pain, no constipation, no nausea, no diarrhea, no vomiting and no melena. Genitourinary: no dysuria, no urinary incontinence, no vaginal dryness, no vaginal itching, no dyspareunia, no pelvic pain, no dysmenorrhea, no sexual problems, no change in urinary frequency, no vaginal discharge, no unexplained vaginal bleeding, no lesion/sore and no vulvar/vaginal pain. Musculoskeletal: no back pain, no joint swelling, no leg edema and no myalgias. Integumentary: no rashes, no skin lesions, no nipple discharge, no breast pain, no breast lump, no acne and no itching. Neurological: headache, but no numbness, no dizziness, no confusion and no memory loss. Psychiatric: no sleep disturbances, no anxiety and no depression. Endocrine: no hot flashes, no loss of hair, no hirsutism, no muscle weakness and no deepening of the voice. Hematologic/Lymphatic: no swollen glands, no tendency for easy bleeding and no tendency for easy bruising. All other systems have been reviewed and are negative for complaint. SELF REPORTED. 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) GERD (gastroesophageal reflux disease) (530.81) (K21.9) Gestational hypertension (642.30) (O13.9) HSV infection (054.9) (B00.9) Insomnia (780.52) (G47.00) Marital disruption involving divorce (V61.03) (Z63.5) Morbid obesity (278.01) (E66.01) Oligomenorrhea (626.1) (N91.5) PCOS (polycystic ovarian syndrome) (256.4) (E28.2) Plantar fasciitis (728.71) (M72.2) Refraction error (367.9) (H52.7) Vaginal candidiasis (112.1) (B37.31) Weight gain (783.1) (R63.5) Past Medical History Problems History of Abnormal Papanicolaou smear of cervix with positive human papilloma virus (HPV) test (795.09,079.4) (R87.618) History of Bacterial vaginosis (616.10,041.9) (N76.0,B96.89) Resolved Date: 15 Jan 2022 History of Cervical cancer screening (V76.2) (Z12.4) Resolved Date: 28 Jan 2019 History of Class 3 severe obesity due to excess calories with body mass index (BMI) of 40.0 to 44.9 in adult (278.01,V85.41) (E66.01,Z68.41) Resolved Date: 01 May 2021 History of Contraception management (V25.9) (Z30.9) Resolved Date: 15 Jan 2022 History of COVID-19 (079.89) (U07.1) Resolved Date: 15 Jan 2022 History of Depression with anxiety (300.4) (F41.8) History of Encounter for preconception consultation (V26.49) (Z31.69) Resolved Date: 15 Jan 2022 History of Fertility testing (V26.21) (Z31.41) Resolved Date: 15 Jan 2022 History of Flu-like symptoms (780.99) (R68.89) Resolved Date: 15 Jan 2022 History of High risk , antepartum (V23.9) (O09.90) Resolved Date: 15 Jan 2022 History of acne (V13.3) (Z87.2) History of female infertility (V13.29) (Z87.42) Resolved Date: 15 Jan 2022 History of fever (V13.89) (Z87.898) Resolved Date: 15 Jan 2022 History of gastritis (V12.79) (Z87.19) History of herpes simplex infection (V12.09) (Z86.19) History of infertility (V13.29) (Z87.42) Resolved Date: 15 Jan 2022 History of (V13.29) Resolved Date: 15 Jan 2022 History of Missed menses (626.4) (N92.6) Resolved Date: 15 Jan 2022 History of Need for Tdap vaccination (V06.1) (Z23) Resolved Date: 15 Jan 2022 History of Polyhydramnios, third trimester, fetus 1 (657.03) (O40.3XX1) Resolved Date: 15 Jan 2022 History of Rubella non-immune status, antepartum (646.83,V15.83) (O09.899,Z28.39) Resolved Date: 15 Jan 2022 History of Screening for STDs (sexually transmitted diseases) (V74.5) (Z11.3) Resolved Date: 1 (more content not included)... Normal [facility] Cult, Urineon 01-15-2022 Bacteria identified Cx Nom (U) [facility] [address] [place] Work Phone: JAW SKINNER - Office Visiton 01-06 JAW SKINNER - Office Visit Diagnoses/Problems Assessed Dysuria (788.1) (R30.0) Gestational hypertension (642.30) (O13.9) Orders Cult, Urine; Status:In Progress - Specimen/Data Collected,Retrospective Authorization; Done: 15Jan2022 Urine Site : Clean Catch/Voided Provider Impressions Will get larger BP cuff and monitor at home. If 160/110 or higher, or headache, vision changes or RUQ pain will present to [facility] Follow up with me on Wednesday after a few days of monitoring with new cuff to see if dose adjustment needed Urine culutre send for dysuria. Chief Complaint BP check Attendant Child Activity declined, Tila Razo, [employer] History of Present IllnessPatient presents for BP check. S/P vaginal delivery complicated by gestational hypertension. Seen in a local ER and started on labetalol 100BID and fiorcet for headches. BPs at home in the high mild range but normal here. BP cuff here seems too small. No current headaches or vision changes. Does reports difficulty emptying her bladder and pain with urination. No other complaints. 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) GERD (gastroesophageal reflux disease) (530.81) (K21.9) HSV infection (054.9) (B00.9) Insomnia (780.52) (G47.00) Marital disruption involving divorce (V61.03) (Z63.5) Morbid obesity (278.01) (E66.01) Oligomenorrhea (626.1) (N91.5) PCOS (polycystic ovarian syndrome) (256.4) (E28.2) Plantar fasciitis (728.71) (M72.2) Refraction error (367.9) (H52.7) Vaginal candidiasis (112.1) (B37.31) Weight gain (783.1) (R63.5) Past Medical History Problems History of Abnormal Papanicolaou smear of cervix with positive human papilloma virus (HPV) test (795.09,079.4) (R87.618) History of Bacterial vaginosis (616.10,041.9) (N76.0,B96.89) History of Cervical cancer screening (V76.2) (Z12.4) Resolved Date: 28 Jan 2019 History of Class 3 severe obesity due to excess calories with body mass index (BMI) of 40.0 to 44.9 in adult (278.01,V85.41) (E66.01,Z68.41) Resolved Date: 01 May 2021 History of Contraception management (V25.9) (Z30.9) History of COVID-19 (079.89) (U07.1) History of Depression with anxiety (300.4) (F41.8) History of Encounter for preconception consultation (V26.49) (Z31.69) History of Fertility testing (V26.21) (Z31.41) History of Flu-like symptoms (780.99) (R68.89) History of High risk , antepartum (V23.9) (O09.90) History of acne (V13.3) (Z87.2) History of female infertility (V13.29) (Z87.42) History of fever (V13.89) (Z87.898) History of gastritis (V12.79) (Z87.19) History of herpes simplex infection (V12.09) (Z86.19) History of infertility (V13.29) (Z87.42) History of (V13.29) History of Missed menses (626.4) (N92.6) History of Need for Tdap vaccination (V06.1) (Z23) History of Polyhydramnios, third trimester, fetus 1 (657.03) (O40.3XX1) History of Rubella non-immune status, antepartum (646.83,V15.83) (O09.899,Z28.39) History of Screening for STDs (sexually transmitted diseases) (V74.5) (Z11.3) History of Women's annual routine gynecological examination (V72.31) (Z01.419) Resolved Date: 28 Jan 2019 Surgical History Problems History of Cholecystectomy History of Colposcopy Family History Father Family history of diabetes mellitus (V18.0) (Z83.3) Family history of hypertension (V17.49) (Z82.49) Maternal Grandmother Family history of hypothyroidism (V18.19) (Z83.49) Family history of malignant neoplasm of uterus (V16.49) (Z80.49) Social History Problems Always uses seat belt Denied: History of domestic violence Marital disruption involving divorce (V61.03) (Z63.5) Never smoker No alcohol use No illicit drug use Non-smoker (V49.89) (Z78.9) 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 valACYclovir HCl - 500 MG Oral Tablettake one tablet twice a day for remainder of for suppression Vitals Vital Signs Recorded: 15Jan2022 03:07PM [id number] [id number] Height5 ft 2 in Physical Exam Constitutional: Alert and in no acute distress. Well developed, well nourished Head and Face: Head and face: normal Eyes: Normal external exam - nonicteric sclera, extraocular movements intact (EOMI) and no ptosis. Ears, Nose, Mouth, and Throat: (more content not included)... Normal Touchworks URINE CULTURE,BACTERIALon URINE CULTURE,BACTERIAL PATIENT: SHU GASPAR [place] [facility] [id number] : 86 AGE: SEX: F ORDERED BY: SUKI YOU SOURCE: URINE COLLECTED: 01/15/22 00:00 ANTIBIOTICS AT MELISSA.: RECEIVED : 01/15/22 22:17 SITE: Clean Catch/Voided R E S U L T S URINE CULTURE,BACTERIAL FINAL 01/16/22 16:36 NO GROWTH Normal [facility] Comment on above: Performed By: #### U RINC ####[id number] [place] [address] Basophil percentageon 2021 Bilirubin [Mass/Vol] 0.30 mg/dL 0.20-1.00 [facility] Work Phone: Comment on above: For patients on eltr ombopag therapy, use of Dimension Covert TBIL is not recommended. Chloride [Moles/Vol] 107 mmol/L 98-107 [facility] Work Phone: Glucose [Mass/Vol] 83 mg/dL 74-106 [facility] Work Phone: Potassium [Moles/Vol] 3.8 mmol/L 3.5-5.1 [facility] Work Phone: Protein [Mass/Vol] 6.4 g/dL 6.4-8.2 [facility] Work Phone: Sodium [Moles/Vol] 143 mmol/L 136-145 [facility] Work Phone: [phone] WBC (Bld) [#/Vol] 10.5 10*3/uL 4.4-11.0 [facility] Work Phone: Blood erythrocytes count (nu mber/volume)on 01-11-2022 RBC (Bld) [#/Vol] 3.55 10*6/uL 4.2-5.4 [facility] Work Phone: Blood hemoglobin measurement (mass/volume)on 01-11-2022 Hemoglobin (Bld) [Mass/Vol] 10.3 g/dL 12.0-15.0 [facility] Work Phone: Blood platelet mean volumeon 01-11-2022 Platelet mean volume (Bld) [Entitic vol] 9.8 fL 6.2-12.0 [facility] Work Phone: Determination of erythrocyte mean corpuscular volume (MCV)on 01-11-2022 MCV (RBC) [Entitic vol] 90.7 fL 81-99 [facility] Work Phone: Hematocrit Auto (Bld) [Volum e fraction]on 01-11-2022 Hematocrit (Bld) [Volume fraction] 32.2 % 37-47 [facility] Work Phone: Laboratory - Chemistry and C hemistry - challengeon 01-11-2022 ALP [Catalytic activity/Vol] 141 U/L 45-117 [facility] Work Phone: ALT [Catalytic activity/Vol] 23 U/L 13-56 [facility] Work Phone: CO2 [Moles/Vol] 29.0 mmol/L 21.0-32.0 [facility] Work Phone: Globulin (S) [Mass/Vol] 4.1 g/dL 2.2-4.2 [facility] Work Phone: Urea nitrogen/Creatinine [Mass ratio] 14.8 mg/mg 10-20 [facility] Work Phone: Laboratory - Hematology and Cell countson 01-11-2022 Erythrocyte distribution width (RBC) [Entitic vol] 45.0 fL 35.1-43.9 [facility] Work Phone: Erythrocyte distribution width (RBC) [Ratio] 13.5 % 11.6-14.6 [facility] Work Phone: MCH (RBC) [Entitic mass] 29.0 pg 27.0-32.0 [facility] Work Phone: MCHC Auto (RBC) [Mass/Vol]on 01-11-2022 MCHC (RBC) [Mass/Vol] 32.0 g/dL 32-36 [facility] Work Phone: No Panel Informationon 01-11 Estimated Creatinine Clearance Calc 103.75 ml/min [facility] Work Phone: Estimated GFR (MDRD) Amer 145 mL/min >60 [facility] Work Phone: Comment on above: GFR Calc Estimated GFR (MDRD) Non-Af Amer 120 mL/min >60 [facility] Work Phone: Comment on above: Non- GFR Calc Platelets bldon 01-11-2022 Platelets (Bld) [#/Vol] 326 10*3/uL 150-450 [facility] Work Phone: Serum or plasma albumin laureano urement (mass/volume)on 01-11-2022 Albumin [Mass/Vol] 2.3 g/dL 3.2-5.0 [facility] Work Phone: Serum or plasma albumin/glob ulin mass ratioon 01-11-2022 Albumin/Globulin [Mass ratio] 0.6 {ratio} 0.9-2.4 [facility] Work Phone: Serum or plasma calcium laureano urement (mass/volume)on 01-11-2022 Calcium [Mass/Vol] 9.1 mg/dL 8.5-10.1 [facility] Work Phone: Serum or plasma creatinine m easurement (mass/volume)on 01-11-2022 Creatinine [Mass/Vol] 0.61 mg/dL 0.55-1.02 [facility] Work Phone: Comment on above: The validity of the calculated GFR & GFRAA in patients over 70 years has not been determined. Clinical correlation is essential. Serum or plasma urea nitroge n measurement (mass/volume)on 01-11-2022 Urea nitrogen [Mass/Vol] 9 mg/dL 7-18 [facility] Work Phone: Serum or plasma uric acid me asurement (mass/volume)on 01-11-2022 Urate [Mass/Vol] 4.5 mg/dL 2.6-6.0 [facility] Work Phone: Comment on above: The drugs N-Acetylcy steine and Metamizole may falsely depress this assay. Thin prep Papanicolaou smear with manual screeningon 01-11-2022 Thin prep Papanicolaou smear with manual screening 16 U/L 15-37 [facility] Work Phone: Thin prep Papanicolaou smear with manual screening 7 5-15 [facility] Work Phone: Order Reconciliationon 01-07 Order Reconciliation Page 1 Discharge Reconciliation Document Reconciliation Type: Discharge requested on behalf of Yasmin Lackey (Advanced Practice Nurse) done by Yasmin Lackey (ENVIRONMENTAL SERVICES DIRECTOR-PRIMARY HEALTH ORGANISATION MANAGER) Discharge - Reconciliation: 07-Jan-2022 09:51 by: Yasmin Lackey (ENVIRONMENTAL SERVICES DIRECTOR-PRIMARY HEALTH ORGANISATION MANAGER) Home Medications EnteredHOME MEDICATIONS AT DISCHARGE DateReconciliation Comment/ Additional Information Aspir 81 oral delayed release tablet 1 tab(s) orally once a day 12-Dec-2021 17:14 Aspir 81 oral delayed release tablet 1 tab(s) orally once a day 12-Dec-2021 17:14 Aspir 81 oral delayed release tablet is continued as Aspir 81 oral delayed release tablet Lexapro 10 mg oral tablet 1 tab(s) orally once a day 12-Dec-2021 17:14 Lexapro 10 mg oral tablet 1 tab(s) orally once a day 12-Dec-2021 17:14 Lexapro 10 mg oral tablet is continued as Lexapro 10 mg oral tablet Prena1 oral capsule 1 cap(s) orally once a day 12-Dec-2021 17:13 Prena1 oral capsule 1 cap(s) orally once a day 12-Dec-2021 17:13 Prena1 oral capsule is continued as Prena1 oral capsule Vitamin C 12-Dec-2021 17:13 Vitamin C 12-Dec-2021 17:13 Vitamin C is continued as Vitamin C Vitamin D3 1250 mcg (50,000 intl units) oral capsule cap(s) orally once a week 12-Dec-2021 17:13 Vitamin D3 1250 mcg (50,000 intl units) oral capsule cap(s) orally once a week 12-Dec-2021 17:13 Vitamin D3 1250 mcg (50,000 intl units) oral capsule is continued as Vitamin D3 1250 mcg (50,000 intl units) oral capsule Current OrdersDateHOME MEDICATIONS AT DISCHARGE DateReconciliation Comment/ Additional Information Acetaminophen Tablet (TYLENOL)DOSE = 975 mg Oral Every 6 HoursClinician Notes: Give with Ibuprofen. 05-Jan-2022 07:41 acetaminophen 325 mg oral tablet 3 tab(s) orally every 6 hours 07-Jan-2022 09:51 Acetaminophen is continued as acetaminophen 325 mg oral tablet Benzocaine 20% - Menthol 0.5% Topical [place] (DERMOPLAST)DOSE = 1 application(s) Topical 4 Times a Day, PRN DiscomfortApply to Perianal Area 05-Jan-2022 07:41 Benzocaine 20% - Menthol 0.5% Topical is not required Bisacodyl Rectal Suppository (DULCOLAX)DOSE = 10 mg Rectal Daily, PRN Severe constipation 05-Jan-2022 07:41 Bisacodyl Rectal is not required Carboprost IntraMuscular (HEMABATE)DOSE = 250 microgram(s) IntraMuscular Once, PRN post bleeding in non-asthmatic patientClinician Notes: Consult provider prior to administration. 05-Jan-2022 07:41 Carboprost IntraMuscular is not required Cyclobenzaprine Tablet (FLEXERIL)DOSE = 5 mg Oral 3 Times a Day 06-Jan-2022 19:04 Cyclobenzaprine is not required diphenhydrAMINE Capsule (BENADRYL)DOSE = 25 mg Oral Every 6 Hours, PRN Itching 05-Jan-2022 07:41 diphenhydrAMINE is not required Docusate Capsule (COLACE)DOSE = 100 mg Oral 2 Times a Day, PRN Stool Softening 05-Jan-2022 07:41 docusate sodium 100 mg oral capsule 1 cap(s) orally 2 times a day, As needed, Stool Softening 07-Jan-2022 09:51 Docusate is continued as docusate sodium 100 mg oral capsule Enoxaparin SubCutaneous (LOVENOX)DOSE = 60 mg SubCutaneous Every 24 HoursClinician Notes: Wait 4 hours after neuraxial catheter removal AND 24 hours after placement of neuraxial catheter. BMI 40-49.9. 05-Jan-2022 07:41 Enoxaparin SubCutaneous is not required hydrALAZINE (APRESOLINE) Injectable DOSE = 5 mg IntraVenous Push Once, PRN Acute-onset, severe HTN w/out known, suspected CADClinician Notes: Consult provider prior to administration. Push over more than 2 minutes. Systolic greater than or equal to 16 05-Jan-2022 07:41 hydrALAZINE (APRESOLINE) Injectable is not required Ibuprofen Tablet (ADVIL, MOTRIN)DOSE = 600 mg Oral Every 6 HoursClinician Notes: Give with Acetaminophen. 05-Jan-2022 07:41 ibuprofen 600 mg oral tablet 1 tab(s) orally every 6 hours 07-Jan-2022 09:51 Ibuprofen is continued as ibuprofen 600 mg oral tablet Labetalol Injectable (TRANDATE)DOSE = 20 mg IntraVenous Push Once, PRN Acute-onset, sev HTN w/o active asthma, gauri<60Clinician Notes: Consult provider prior to administration. Push over more than 2 minutes. Systolic greater than or equal to 160 OR 05-Jan-2022 07:41 Labetalol Injectable is not required Lanolin Topical Ointment (LANSINOH)DOSE = 1 application(s) Topical Every 24 Hours, PRN Dry SkinApply to NippleClinician Notes: After and PRN 05-Jan-2022 07:41 Lanolin Topical is not required Loperamide Capsule (IMODIUM)DOSE = 4 mg Oral Every 2 Hours, PRN If Carboprost given or loose stoolsClinician Notes: Max dose of 16mg / 24 hours 05-Jan-2022 07:41 Loperamide is not required Magnesium Hydroxide -Al Hydrox -Simethicone Oral Liquid (MAALOX)DOSE = 30 mL Oral Every 4 Hours, PRN Indigestion 05-Jan-2022 07:41 Magnesium Hydroxide -Al Hydrox -Simethicone Oral Liquid is not required Magnesium Hydroxide Oral Liquid CONCENTRATE (MILK OF MAGNESIA)DOSE = 10 mL Oral Every 24 Hours, PRN Constipation 05-Jan-2022 07:41 Magnesium Hydroxide Oral Liquid CONCENTRATE is not required Measles -Mumps -Rubel (more content not included)... Normal [facility] Clinical Event Note-BP Cuff and Home Monitoringon 01-06-2022 Clinical Event Note-BP Cuff and Home Monitoring Clinical Event: Clinical Event Note: TopicBP Cuff and Home Monitoring Details Patient meets criteria for home monitoring of blood pressure post discharge. Met with patient to assess for availability of home BP monitor. Patient does not have access to BP monitor at home. Pt agreed to order home BP monitor from [employer]. Large BP monitor delivered to room. Patient educated on how to use BP monitor, recording BPs on home monitoring log and s/sx to report to her provider. Pt verbalized understanding the above information. Electronic Signatures: Colleen Monterroso (GRACIA) (Signed 06-Jan-2022 11:06) Authored: Clinical Event Note Last Updated: 06-Jan-2022 11:06 by Colleen Monterroso (GRACIA) Normal [facility] Daily Progress Note - OB-Pos t-partumon 01-06-2022 Daily Progress Note - VL-Umpx-hczzti Current Stage: Stage: Post- Subjective Data: Post : Ambulate: Yes Flatus: Yes Tolerate Diet: Yes Lochia: Light Desired Contraception: Depo-Provera - Contraception options reviewed, including risks and benefits. Pain Comment: well controlled with PO medications. : Pt seen with baby and support person @ bedside in NAD. Alert, conversational. Denies JEFFERS, N/V, RUQ pain, vision changes. Objective Information: Objective Information: T PRBPMAPSpO2 [id number]% Date/Time01/06 8: 8: 8: 8: 8: 8:52 Range(36C - 37.8C ) (76 - 145 ) (16 - 18 ) (111 - 173 )/ (61 - 92 ) (84 - 118 ) (86% - 100% ) Highest temp of 37.8 C was recorded at 01/05 7:25 Pain reported at 01/06 12:00: 0 = None Physical Exam: Constitutional: alert, oriented Obstetric: Fundus firm below umbilicus, lochia light Eyes: sclera white, EOM intact, no drainage/discharge or erythema ENMT: no hearing deficit, no goiter Head/Neck: normocephalic/atraumatic, full ROM intact, no enlarged lymphnodes Respiratory/Thorax: No increased WOB, rhythm even and unlabored, LSCTA BL Gastrointestinal: abdomen soft, non-tender, no distension, +BS Musculoskeletal: Moves all extremities, full ROM Extremities: BLE no edema/erythema/warmth. Neurological: Alert/Oriented x3, speech clear Breast: negative erythema, engorgement, warmth Psychological: appropriate affect, interactive Skin: warm, dry, intact Assessment and Plan: Assessment: 31 year old @ 39.2 weeks by 8.5 week US. She presents for IOL. Denies or presents with bleeding or leaking. Baby active. 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 SSE on admission Rubella nonimmune --> for MMR Class III obesity Resolved Polyhydramnios - JOHN 22. MVP 6.5 on 12/22. Previously JOHN 28 and MVP 8.2 on 12/15 Dispo - anticipate d/c on PPD #2-3 if meeting all milestones - The signs and symptoms of PEC were reviewed with the patient, including unrelenting headache, vision changes/blurred vision, and pain underneath the right breast. - BP cuff for home for checking BP BID. Pt instructed to call primary OB if SBP > 160 or DBP > 110. - On discharge, follow up with primary OB in 2-5 days for BP check and 4-6 weeks for visit. Yasmin Lackey CNP (she/her) Doc Halo/Vocera Electronic Signatures: Yasmin Lackey (ENVIRONMENTAL SERVICES DIRECTOR-PRIMARY HEALTH ORGANISATION MANAGER) (Signed 06-Jan-2022 16:16) Authored: Current Stage, Subjective Data, Objective Data, Assessment and Plan, Note Completion Last Updated: 06-Jan-2022 16:16 by Yasmin Lackey (ENVIRONMENTAL SERVICES DIRECTOR-PRIMARY HEALTH ORGANISATION MANAGER) Normal [facility] Clinical Event Note-Labor [place] 10-31-2022 Clinical Event Note-Labor Check Clinical Event: Clinical Event Note: TopicLabor Check Details S: Pt resting comfortably with some intermittent rectal pressure. Consents to cervical exam. O: FHR 150, moderate, +accels, -decels toco: every 2-3 mins VE: 10/100/0 A: IUP at 39.3 wks cat I FHR 2nd stage P: Will begin maternal pushing efforts. Anticipate . ALLY Beckham Electronic Signatures: Tameka Gonsalves (ENVIRONMENTAL SERVICES DIRECTOR-[facility]) (Signed 05-Jan-2022 04:42) Authored: Clinical Event Note Last Updated: 05-Jan-2022 04:42 by Tameka Gonsalves (ENVIRONMENTAL SERVICES DIRECTOR-CN) Normal [facility] Clinical Event Note-Labor Check Clinical Event: Clinical Event Note: TopicLabor Check Details S: Pt reporting pain now relieved, only feeling mild, intermittent rectal pressure. O: FHR 150, moderate, -accels, -decels toco: every 2-3 mins VE: deferred severe range BP x1 while leaning on her left arm, normotensive on recheck after repositioning. Denies JEFFERS/RUQ pain/visual changes. A: IUP at 39.3 wks cat I FHR IOL--> active labor gHTN P: Continue pitocin and CEFM per guidelines Reassess at 0430 or sooner if clinically indicated. Anticipate . Dr. Hall updated on clinical status including severe BP and normotensive BP. ALLY Beckham Electronic Signatures: Tameka Gonsalves ([facility]) (Signed 05-Jan-2022 03:50) Authored: Clinical Event Note Last Updated: 05-Jan-2022 03:50 by Tameka Gonsalves (ENVIRONMENTAL SERVICES DIRECTOR-CN) Normal [facility] Clinical Event Note-Labor Check Clinical Event: Clinical Event Note: TopicLabor Check Details S: Pt reporting vaginal pain and pressure, mostly on her left side, consents to cervical exam. O: FHR 140, moderate, -accels, +early decels toco: every 1-3 mins VE: 9.5/100/-1, cervix palpated from 12-3:00 A: IUP at 39.3 wks cat I FHR IOL--> active labor P: Continue pitocin and CEFM per guidelines. Pt repositioned to her left side. Anesthesia notified pt feeling unilateral pain, updated on cervical exam. Will reassess in 1-2 hrs or sooner as clinically indicated. Delivery cart to room. Anticipate ALLY Silva Electronic Signatures: Tameka Gonsalves (MALIHA) (Signed 05-Jan-2022 02:30) Authored: Clinical Event Note Last Updated: 05-Jan-2022 02:30 by Tameka Gonsalves ([facility]) Normal [facility] Clinical Event Note-Labor ch eckon 01-05-2022 Clinical Event Note-Labor check Clinical Event: Clinical Event Note: TopicLabor check Details S: Pt asleep, partner asleep at the bedside. O: FHR 130, moderate, -accels, -decels toco: every 2-5 mins pitocin: 8 mu/min VE: deferred A: IUP at 39.3 wks cat I FHR IOL--> early labor P: Continue pitocin and CEFM per guidelines. Reassess as indicated. Anticipate . ALLY Beckham Electronic Signatures: Tameka Gonsalves (MALIHA) (Signed 05-Jan-2022 00:26) Authored: Clinical Event Note Last Updated: 05-Jan-2022 00:26 by Tameka Gonsalves ([facility]) Normal [facility] Delivery Recordon 01-05-2022 Delivery Record Lab Tests/Results: Labs: Labs: Blood Typed Date: 13-Jun-2021 Blood Type: A positive Antibody Screen Results: negative Chlamydia Date: 13-Jun-2021 Chlamydia Results: negative Gonorrhea Date: 13-Jun-2021 Gonorrhea Results: negative Group B Strep Date: 12-Dec-2021 Strep Results: negative GCT (dd-mmm-yy): 03-Oct-2021 GCT result: 116 HBsAG Date: 13-Jun-2021 HBsAG Results: negative Hemoglobin A1C (dd-mmm-yy): 13-Jun-2021 Hemoglobin A1C: 5.2 % Estimated Average Glucose: 103 HIV Date: 13-Jun-2021 HIV Results: negative Rubella Date: 03-Oct-2021 Rubella Results: nonimmune Rubella Comments: Result Value Negative Syphilis (mmm-dd-yyyy): 04-Jan-2022 Syphilis Results: negative Urine Spot (dd-mmm-yy): 04-Jan-2022 Total Protein/Creatinine Ratio: 0.17 Delivery Information: A Delivery Information: Baby A Delivery: Rupture of Membranes date/[id number] 20:55 Amniotic Fluid Colorclear Delivery Typevaginal delivery Delivery Locationlabor and delivery Delivery Date/[id number] 06:51 Length of Time of ROM (rounded down to nearest hour)9 Sexmale Identification Band [id number] Electronic Transponder [id number] ID Bands Verified byAmelia FAGAN/ Eddie FAGAN 4th ID band toJacob FOB Weight (kg)3.4 kilogram(s) Length (cm)47.5 centimeter(s) Head Circumference (cm)18.5 centimeter(s) Baby A: Placenta disposalsent to pathology 1 Min: Heart [place] than 100 beats/min Respiratory Rategood, crying Muscle Tonewell flexed Reflex Irritabilitycough or sneeze Colorblue, pale 1 Minute Score, Baby A8 Apgars assessed byAmelia FAGAN 5 Min: Heart [place] than 100 beats/min Respiratory Rategood, crying Muscle Tonewell flexed Reflex Irritabilitycough or sneeze Colorbody pink, extremities blue 5 Minute Score, Baby A9 Apgars assessed byAmelia FAGAN Delivery Team: Nancy Cisneros RN Electronic Signatures: Harvey Neumann (RN) (Signed 05-Jan-2022 09:08) Authored: [place] Delivery Information Ariana Morgan (RN) (Signed 05-Jan-2022 07:05) Authored: Lab Tests/Results, Delivery Information Last Updated: 05-Jan-2022 09:08 by Harvey Neumann (RN) [facility] Discharge Planning [id number] 1 Discharge Planning Note2 Discharge Planning: Planned Dispositionhome Anticipated Discharge [id number] Discharge Planning Date and Time: 01/05/22 @ 1000 Nursing Note/Admission/Health Maintenance: D: Patient admitted to the Mother Infant unit from L&D Patient admitted for or s/p care Patient lives at home Patient was independent with ambulation and ADL's prior to admission. Patients caregiver/help after discharge will be fob Home going needs anticipated at this time: none Upon arrival, admitting assessment completed. See flowsheets. Stable upon admission. Discharge folder handouts and/or brochures given to patient/caregiver and reviewed with them. E: Discharge planning initiated. P: Continue to assess home going/discharge needs. Coordinate with interdisciplinary team as needed. Signature: Alaina Mijares RN Assessment: Discharge Planning Assessment [id number] Lives Withsignificant other(1) [place] ([place]) Resource/Environmental Concernsnone(1) Anticipated Transition [place](1) Services Anticipated at Transitionnon(1) Discharge Documentation: Code StatusCode Status order at time of discharge: Full Code Electronic Signatures: Alaina Mijares (GRACIA) (Signed 05-Jan-2022 09:50) Authored: Discharge Planning, Assessment, Discharge Documentation Last Updated: 05-Jan-2022 09:50 by Alaina Mijares (GRACIA) References: 1. Data Referenced From Patient Profile - OB v3 04-Jan-2022 08:29 Normal [facility] Discharge [id number] Discharge Profile2 Discharge Orders: Anticipated Discharge Date: Anticipated Discharge [id number] DNAR: Code Status at Discharge: Full Code : Call 911: Call 911 or go to the nearest emergency room RIGHT AWAY if you have:. Chest pain or pressure; heart racing. Shortness of breath or difficulty breathing. Seizures; change in alertness or confusion. Thoughts of hurting yourself or someone else. Call Provider: Call your OB Provider if you have: (If you can't reach your healthcare provider, call 911 or go to an emergency room). Heavy bleeding. Soaking a large pad every hour or passing large clots. Red or swollen leg that is painful or warm to touch. Temperature of 100.4 degrees F or higher; bad-smelling vaginal blood or discharge. Headache that does not get better, even after taking medicine; bad headache with vision changes; pain in the upper right area of your belly. Signs of Depression. Examples include: 1. Persistent sadness 2. Frequent crying 3. Sleep problems 4. Excessive worrying 5. Feeling unable to cope. Red or swollen breast that is painful or warm to touch. Pain, burning, or difficulty with emptying your bladder. Severe constipation (more than 5 days). Trust your instincts. Always get medical care if you are not feeling well or have questions or concerns.. Activity: Return to normal activity as tolerated. Patient Instructions: Pelvic Rest: DO NOT place anything in vagina until cleared by OB Provider. Blood Pressure: Any Blood Pressure Systolic (upper number) 160 or higher OR Diastolic (bottom number) 110 or higher, call your doctor or belt dresser immediately. Blood Pressure Systolic (upper number) 150 - 159 OR Diastolic (bottom number) 100 - 109, repeat in one hour. If repeat Blood Pressure Systolic 150 - 159 OR Diastolic 100 - 109, call your doctor or belt dresser to discuss blood pressure management.. Follow-Up - OB Provider: Physician/Omar/Miroslava Provider CommentsPlease call for BP check within 2-5 days and a 4-6wk visit Provider FINAL REVIEW of Orders: Final Review: Final Review of Medication Reconciliation and Orders Completedby ENVIRONMENTAL SERVICES DIRECTOR Reviewing TERRY Villaseñor at 07-Jan-2022 09:50:54 Appointments: Follow-Up Appointment 01: Physician/Freemant/Miroslava Provider Reason for ReferralBlood Pressure Check Scheduled Date/[id number] 14:30 Follow-Up Appointment 02: Physician/Stiven Reason for ReferralPPV Call to Schedule in4-6 Weeks CommentsPlease call to schedule Other Clinician Instructions: Other Instructions: Nursing InstructionsThe [place] Helen[place] Academy of Pediatrics recommends that pacifier use is best avoided during the initiation of and used only after is well established. In some infants, early pacifier use may interfere with establishment of good practices, whereas in others it may indicate the presence of a problem that requires intervention. Use of a pacifier may cause problems with latching, and lead to decreased milk supply by missing feeding opportunities. Pacifiers may be used during painful procedures, but are not otherwise recommended while the is learning to breastfeed. Other Clinician InstructionsAny woman can have complications after the of a baby including a blood clot, a heart problem, hypertensive disorder/eclampsia, depression, hemorrhage, or infection. Notify all providers of your delivery date up to one year after .* Call 911 or go to nearest emergency room right away if you have: PAIN or pressure in chest; OBSTRUCTED breathing or shortness of breath; SEIZURES; THOUGHTS of hurting yourself or your baby; heart palpitations/racing; change in alertness/confusion. Call your provider if you have: BLEEDING, soaking through a pad/hour, or blood clots the size of an egg or bigger; INCISION (episiotomy stitches or site) that is not healing (increased redness, pain, drainage/pus, or separation); RED or swollen leg/calf that is painful or warm to touch, especially in one leg more than the other; TEMPERATURE of 100.4 F or higher or chills; HEADACHE that does not get better with medicine, rest or hydration, or bad headache with vision changes like spots or flashing lights; increased swelling of face, hands or legs; severe cramps or upper right belly pain; red or swollen breast that is painful or warm to touch; an unusual, foul odor from your vaginal discharge; pain, burning, or difficulty during urination; severe constipation (more than 5 days); feelings of depression (such as depressed mood, loss of interest in enjoyable things, unable to care for yourself, trouble sleeping, lack of appetite, or feeling worthless). If you cant reach your provider or symptoms worsen, call 911 or go to nearest emergency room. *Information obtained from AWHONNs: (more content not included)... Normal [facility] No Panel Informationon 01-05 [facility] [address] Work Phone: ORDER RECD [facility] Work Phone: Order Reconciliationon 01-05 Order Reconciliation Page 1 Transfer Reconciliation Document Reconciliation Type: Transfer requested on behalf of Tameka Gonsalves (Advanced Practice Nurse) done by Tameka Gonsalves (ENVIRONMENTAL SERVICES DIRECTOR-CN) Transfer - Reconciliation: 05-Jan-2022 07:37 by: Tameka Gonsalves (ENVIRONMENTAL SERVICES DIRECTOR-CNM) Pre-Transfer OrdersDateReconciliation Comment/ Additional InformationPost Transfer OrdersDateStop Quality DVT Risk Assessment Complete DVT Risk Score: 5 Highest Risk DVT Risk Factors:BMI 40 - 49.9 (3), antepartum or (2) 04-Jan-2022 08:48 Discontinue/Cancel DVT Risk Assessment Complete DVT Risk Score: 5 Highest Risk DVT Risk Factors:BMI 40 - 49.9 (3), antepartum or (2) 04-Jan-2022 08:48 05-Jan-2022 07:37 Medications Acetaminophen Rectal Suppository (TYLENOL)DOSE = 650 mg Rectal Once, PRN Initial pain mgmt following deliveryClinician Notes: Administer in the OR. 04-Jan-2022 08:48 Discontinue/Cancel Acetaminophen Rectal Suppository (TYLENOL)DOSE = 650 mg Rectal Once, PRN Initial pain mgmt following deliveryClinician Notes: Administer in the OR. 04-Jan-2022 08:48 05-Jan-2022 07:37 Carboprost IntraMuscular (HEMABATE)DOSE = 250 microgram(s) IntraMuscular Once, PRN post bleeding in non-asthmatic patientClinician Notes: Consult provider prior to administration. 04-Jan-2022 08:48 Discontinue/Cancel Carboprost IntraMuscular (HEMABATE)DOSE = 250 microgram(s) IntraMuscular Once, PRN post bleeding in non-asthmatic patientClinician Notes: Consult provider prior to administration. 04-Jan-2022 08:48 05-Jan-2022 07:37 Enoxaparin SubCutaneous (LOVENOX)DOSE = 60 mg SubCutaneous Every 24 HoursClinician Notes: Wait 4 hours after neuraxial catheter removal AND 24 hours after placement of neuraxial catheter. BMI 40-49.9. 05-Jan-2022 09:00 Discontinue/Cancel Enoxaparin SubCutaneous (LOVENOX)DOSE = 60 mg SubCutaneous Every 24 HoursClinician Notes: Wait 4 hours after neuraxial catheter removal AND 24 hours after placement of neuraxial catheter. BMI 40-49.9. 05-Jan-2022 09:00 05-Jan-2022 07:37 Escitalopram Tablet (LEXAPRO)DOSE = 10 mg Oral Daily 04-Jan-2022 08:42 Discontinue/Cancel Escitalopram Tablet (LEXAPRO)DOSE = 10 mg Oral Daily 04-Jan-2022 08:42 05-Jan-2022 07:37 hydrALAZINE (APRESOLINE) Injectable DOSE = 5 mg IntraVenous Push Once, PRN Acute-onset, severe HTN w/out known, suspected CADClinician Notes: Consult provider prior to administration. Push over more than 2 minutes. Systolic greater than or equal to 16 04-Jan-2022 08:48 Discontinue/Cancel hydrALAZINE (APRESOLINE) Injectable DOSE = 5 mg IntraVenous Push Once, PRN Acute-onset, severe HTN w/out known, suspected CADClinician Notes: Consult provider prior to administration. Push over more than 2 minutes. Systolic greater than or equal to 16 04-Jan-2022 08:48 05-Jan-2022 07:37 Labetalol Injectable (TRANDATE)DOSE = 20 mg IntraVenous Push Once, PRN Acute-onset, sev HTN w/o active asthma/ gauri<60Clinician Notes: Consult provider prior to administration. Push over more than 2 minutes. Systolic greater than or equal to 160 OR 04-Jan-2022 08:48 Discontinue/Cancel Labetalol Injectable (TRANDATE)DOSE = 20 mg IntraVenous Push Once, PRN Acute-onset, sev HTN w/o active asthma/ gauri<60Clinician Notes: Consult provider prior to administration. Push over more than 2 minutes. Systolic greater than or equal to 160 OR 04-Jan-2022 08:48 05-Jan-2022 07:37 Levonorgestrel (LILETTA) 52 mg Implant Device (LILETTA)DOSE = 52 mg IntraUterine Once, PRN ContraceptionNotes from Pharmacy: Low Risk Hazardous Drug- Single Nitrile Glove 04-Jan-2022 08:48 Discontinue/Cancel Levonorgestrel (LILETTA) 52 mg Implant Device (LILETTA)DOSE = 52 mg IntraUterine Once, PRN ContraceptionNotes from Pharmacy: Low Risk Hazardous Drug- Single Nitrile Glove 04-Jan-2022 08:48 05-Jan-2022 07:37 Loperamide Capsule (IMODIUM)DOSE = 4 mg Oral Every 2 Hours, PRN If Carboprost given or loose stoolsClinician Notes: Max dose of 16mg / 24 hours 04-Jan-2022 08:48 Discontinue/Cancel Loperamide Capsule (IMODIUM)DOSE = 4 mg Oral Every 2 Hours, PRN If Carboprost given or loose stoolsClinician Notes: Max dose of 16mg / 24 hours 04-Jan-2022 08:48 05-Jan-2022 07:37 Methylergonovine Injectable (METHERGINE)DOSE = 0.2 mg IntraMuscular Once, PRN PPH in pts w/o HTN or receiving ART for HIV mgmt.Clinician Notes: Consult provider prior to administration.Notes from Pharmacy: Reproductive Risk - Single Nitrile Glove 04-Jan-2022 08:48 Discontinue/Cancel Methylergonovine Injectable (METHERGINE)DOSE = 0.2 mg IntraMuscular Once, PRN PPH in pts w/o HTN or receiving ART for HIV mgmt.Clinician Notes: Consult provider prior to administration.Notes from Pharmacy: Reproductive Risk - Single Nitrile Glove 04-Jan-2022 08:48 05-Jan-2022 07:37 miSOPROStol IntraVaginal Tablet (CYTOTEC)DOSE = 25 microgram(s) IntraVaginal Every 3 HoursStop After 6 DosesClinician Notes: Contraind (more content not included)... Normal [facility] REQUEST-LEUKOREDUCED RED HORACE LSon 01-05-2022 REQUEST-LEUKOREDUCED RED CELLS ORDER RECD Normal [facility] Comment on above: Performed By: #### O SENIOR DATA ARCHITECT ####[id number] RIA SILVA.[address] Surgical Pathology Depar tmenton 01-05-2022 [facility] Surgical Pathology Department Name SHU GASPAR Pathologist: ISRRAEL DAVENPORT MD Date of Procedure: 01/05/2022 Date Received: 01/06/2022 Date Reported 01/12/2022 Submitting Physician: TAMEKA GONSALVES CNM Location: 3M3A Copy To/Referring/Attending: JAGJIT BOLES MD Other External # FINAL DIAGNOSIS A. PLACENTA: -- MATURE PLACENTA (534 G). -- ACUTE CHORIONITIS (MATERNAL STAGE 1). Electronically Signed Out By ISRRAEL DAVENPORT MD/SXR By the signature on this report, the individual or group listed as making the Final Interpretation/Diagnosis certifies that they have reviewed this case. Diagnostic interpretation performed at [address] [place] [address] Clinical History: Gestational age: 39.3 Ob index: G 1, Full term 0, Fer 0, Ab 0, Lvg 0 Maternal history: COVID recovered, depression, HSV, rubella nonimmune, class 3 obesity, resolved polyhydramnios Baby weight: 3400 g Apgars: 8 at 1 minute, 9 at 5 minutes Specific questions: Hypertensive disorder of Specimens Submitted As: A: PLACENTA Gross Description: Received fresh, labeled with the patient's name and hospital number, with an accompanying placental record sheet, is a placenta. The placental membranes are translucent and complete. The membrane insertion is marginal. The point of membrane rupture is 6.5 cm from the nearest margin. The umbilical cord is pale-yellow, 52.5 cm in total length, and inserts in the placenta, 7.0 cm from the margin. There are up to 2 coils per 10 cm. On cut section, the cord has 3 vessels, and measures 1.2 x 1.2 cm. The placenta is discoid, 22 x 19 x 2.7 cm, and weighs 534 g without cord or membranes. The surface is blue-red and translucent. The maternal surface is complete. The cut surface is dark red and spongy. No gross abnormalities are noted. A marginal blood clot without indentation is identified, measuring 7.0 x 6.0 x 1.8 cm. Jewelry Drill Operator sections are submitted in 5 cassettes. [facility] Summary of Cassettes: Specimen Label Site A 1 umbilical cord sections 2 membrane rolls 3 placental parenchyma, umbilical cord insertion site 4 placental parenchyma with attached blood clot 5 placental parenchyma djo/01/06/2022 [facility] Department of Pathology [address] [place] [address] Normal [facility] Comment on above: Performed By: #### T +S #### [address] [place] [address] Admission Risk Screen - OBon 01-04-2022 Admission Risk Screen - OB Allergies: Allergies: No Known Allergies: Patient Verification: New W ID Band Applied in my Departmentyes Patient Identity Verified Bypatient ID Band FULL Name, include Middle, spelling matches patient's ID used for verificationyes ID Band Matches Patient ID used for Verficationyes ID Band MRN Matches EMR MRNyes Visitor Restriction: Coronavirus Visitor Restriction: Reasonable restrictions to in-person visitors will be observed due to current coronavirus pandemic. Travel History: COVID-19 Screening Completedno exposure or symptoms Travel or Exposure Past 30 DaysNO travel to International locations in the past 30 days Advance Directive: Advance Directive/DNRno Advance Directive Information Givenpatient/family declined Riley Fall Screen: History of falling (immediate or previous)no (0) Secondary Diagnosisno (0) Intravenous Therapy/ Heparin/Saline Lockyes (20) Gait/Transferringnormal/b edrest/wheelchair (0) Ambulatory Aidsnone/bedrest/nurse assist (0) Mental Statusoriented to own ability (0) Score: Low risk (<25). Moderate risk (25-44). High risk (>44).20 Riley InterventionsLOW INTERVENTIONS: *patient oriented to surroundings and call system, * patient/family falls education completed and documented, *patients fall status communicated during bedside handoff, *whiteboard updated, *mode of toileting discussed with patient, *bed in low position with brakes locked, *call light in reach, * non-skid footwear Functional screen: Functional Screen: In the recent/past 2-4 weeks, patient or family have noticedno issues that require a rehabilitation consult at this time Learning Assessment (Patient): Patient is Able to be Assessed for Learningyes Factors Influencing Readiness to Learnanxiety; depression Factors that Impact Ability to Learnnone Devices/Methods Used to Communicatenone Learning Preferencesverbal instruction Cultural Considerationsnone Developmental Considerationsnone Congregational Considerationsnone Learning Assessment (Other Learner): Other learner availableno Nutrition Risk Screen: Nutrition Risk Screenno indicators present Nutrition Consult needed this visitno Can Patient Participate in Room Serviceyes Pain Screen: Pain Control Method: Labornone Pain Control Method: Postpartummedication Pain Scalenumerical 0-10 Pain Scale Educationteaching provided Acceptable Pain Level5 = Moderate Expression of Pain (nonverbal)verbalization Chronic Painno Skin - Alfred Scale: Alfred Scale (daily): Alfred: Sensory Perception (response to environment)(4) no impairment Alfred: Moisture (degree skin exposed to moisture)(4) rarely moist Alfred: Activity (ability to walk)(4) walks frequently Alfred: Mobility (amount/control of body movement)(4) no limitation Alfred: Nutrition (quality of food intake)(4) excellent Alfred: Friction and Shear(3) no apparent problem Alfred: Score23 Pressure Injury Present on Admissionno Spiritual Screen: Are there any cultural, spiritual, congregation practices/values/needs that are important for us to knowno Depression Screen: During the past month, have you often been bothered by feeling down, depressed or hopelessno During the past month, have you often had little interest or pleasure in doing thingsno Have you had any thoughts of harming anyone elseno [place] Suicide: Risk Screen Not Applicable/Able to Answerable to be screened In the Past Month: Have you wished you were or could go to sleep and not wake upno In the Past Month: Have you had any actual thoughts of killing yourselfno Lifetime: Have you ever done, started to do, or prepared to do anything to end your lifeno [place] Suicide Risknegative Family Violence Screen: Are you or have you been threatened or abused physically, emotionally, or sexually by anyoneno Do you feel UNSAFE going back to the place where you are livingno Clinical assessment: Are there any apparent signs of injuries/behaviors that could be related to abuse/neglectno Social Service Consult for abuse/neglect needed this visitno Vaccinations: Vaccination - Influenza Vaccination Screen: Is it flu season (between and June 05)Yes Screening for identified contraindications to influenza vaccinationpatient already received vaccine this season Vaccination - Pneumonia Vaccination Screen: Patient has received a previous pneumonia vaccine:no/unknown... Immunocompetent persons with underlying chronic conditions or reside in long term care administrator care facilitiesnone of these conditions Persons with Functional or Anatomic Asplenianone of these conditions Immunocompromised Personsnone of these conditions Pneumonia vaccine NOT indicated due to:patient DOES NOT have a condition that indicates vaccination Vaccination - TDap Vaccination Screen: Have you received a TDap vaccine this pregnancyyes (no further action required) (more content not included)... Normal [facility] CBCon 01-04-2022 Erythrocyte distribution width (RBC) [Ratio] 13.8 % Normal 11.5 - 14.5 [facility] Comment on above: Performed By: #### O SENIOR DATA ARCHITECT #### [facility] [address] [place] [address] Hematocrit (Bld) [Volume fraction] 34.1 % Low 36.0 - 46.0 [facility] Comment on above: Performed By: #### O SENIOR DATA ARCHITECT #### [facility] [address] [place] [address] Hemoglobin (Bld) [Mass/Vol] 11.1 g/dL Low 12.0 - 16.0 [facility] Comment on above: Performed By: #### O SENIOR DATA ARCHITECT #### [facility] [address] [place] [address] MCHC (RBC) [Mass/Vol] 32.6 g/dL Normal 32.0 - 36.0 [facility] Comment on above: Performed By: #### O SENIOR DATA ARCHITECT #### [facility] [address] [place] [address] MCV (RBC) [Entitic vol] 91 fL Normal 80 - 100 [facility] Comment on above: Performed By: #### O SENIOR DATA ARCHITECT #### [facility] [address] [place] [address] NUCLEATED RBC 0.0 /100 WBC Normal 0.0-0.0 [facility] Comment on above: Performed By: #### O SENIOR DATA ARCHITECT #### [facility] [address] [place] [address] Platelets (Bld) [#/Vol] 224 10*3/uL Normal 150 - 450 [facility] Comment on above: Performed By: #### O SENIOR DATA ARCHITECT #### [facility] [address] [place] [address] RBC 3.76 x10E12/L Low 4.00 - 5.20 [facility] Comment on above: Performed By: #### O SENIOR DATA ARCHITECT #### [facility] [address] [place] [address] WBC (Bld) [#/Vol] 10.5 10*3/uL Normal 4.4 - 11.3 [facility] Comment on above: Performed By: #### O SENIOR DATA ARCHITECT #### [facility] [address] [place] [address] COMPREHENSIVE PANELon 2021 Albumin [Mass/Vol] 3.2 g/dL Low 3.4 - 5.0 [facility] Comment on above: Performed By: #### O SENIOR DATA ARCHITECT #### [facility] [address] [place] [address] ALP [Catalytic activity/Vol] 192 U/L High 33 - 110 MG-OBGYN-Ri sman 100 [facility] Work Phone: Comment on above: Performed By: #### O SENIOR DATA ARCHITECT #### [facility] [address] [place] [address] ALT [Catalytic activity/Vol] 10 U/L Normal 7 - 45 [facility] Comment on above: Result Comment: Kim ents treated with Sulfasalazine may generate falsely decreased results for ALT. Performed By: #### O SENIOR DATA ARCHITECT #### [facility] [address] [place] [address] Anion gap [Moles/Vol] 13 mmol/L Normal 10 - 20 [facility]- OBGYN-Ri sman 100 [facility] Work Phone: Comment on above: Performed By: #### O SENIOR DATA ARCHITECT #### [facility] [address] [place] [address] AST [Catalytic activity/Vol] 14 U/L Normal 9 - 39 [facility] Comment on above: Performed By: #### O SENIOR DATA ARCHITECT #### [facility] [address] [place] [address] Bilirubin [Mass/Vol] 0.3 mg/dL Normal 0.0 - 1.2 MG-O BGYN-Ri sman 100 [facility] Work Phone: Comment on above: Performed By: #### O SENIOR DATA ARCHITECT #### [facility] [address] [place] [address] Calcium [Mass/Vol] 8.6 mg/dL Normal 8.6 - 10.6 MG-OBG YN-Ri sman 100 [facility] Work Phone: Comment on above: Performed By: #### O SENIOR DATA ARCHITECT #### [facility] [address] [place] [address] Chloride [Moles/Vol] 108 mmol/L High 98 - 107 MG-O BGYN-Ri sman 100 [facility] Work Phone: Comment on above: Performed By: #### O SENIOR DATA ARCHITECT #### [facility] [address] [place] [address] Creatinine [Mass/Vol] 0.47 mg/dL Low 0.50 - 1.05 MG -OBGYN-Ri sman 100 [facility] Work Phone: Comment on above: Reference Range: 0.5 0 - 1.05 Performed By: #### O SENIOR DATA ARCHITECT #### [facility] [address] [place] [address] eGFR FEMALE >90 Normal >90 [facility] Comment on above: Result Comment: CALC ULATIONS OF ESTIMATED GFR ARE PERFORMED USING THE 2020 CKD-EPI STUDY REFIT EQUATION WITHOUT THE RACE VARIABLE FOR THE IDMS-TRACEABLE CREATININE METHODS. https://jasn.asnjournals.org/content/early/ASN.98313 32127 Performed By: #### O SENIOR DATA ARCHITECT #### [facility] [address] [place] [address] Glucose [Mass/Vol] 94 mg/dL Normal 74 - 99 MG-OBG YN-Ri sman 100 [facility] Work Phone: Comment on above: Performed By: #### O SENIOR DATA ARCHITECT #### [facility] [address] [place] [address] HCO3 (Bld) [Moles/Vol] 21 mmol/L Normal 21 - 32 [facility] Comment on above: Performed By: #### O SENIOR DATA ARCHITECT #### [facility] [address] [place] [address] Potassium [Moles/Vol] 4.0 mmol/L Normal 3.5 - 5.3 MG- OBGYN-Ri sman 100 [facility] Work Phone: Comment on above: Performed By: #### O SENIOR DATA ARCHITECT #### [facility] [address] [place] [address] Protein [Mass/Vol] 5.4 g/dL Low 6.4 - 8.2 MG-OBG YN-Ri sman 100 [facility] Work Phone: Comment on above: Performed By: #### O SENIOR DATA ARCHITECT #### [facility] [address] [place] [address] Sodium [Moles/Vol] 138 mmol/L Normal 136 - 145 MG-OBG YN-Ri sman 100 [facility] Work Phone: Comment on above: Performed By: #### O SENIOR DATA ARCHITECT #### [facility] [address] [place] [address] Urea nitrogen [Mass/Vol] 10 mg/dL Normal 6 - 23 [facility]-OBGYN-Ri sman 100 [facility] Work Phone: Comment on above: Performed By: #### O SENIOR DATA ARCHITECT #### [facility] [address] [place] [address] Daily Progress Note - OB-Int rapartumon 01-04-2022 Daily Progress Note - OB-Intrapartum Current Stage: Stage: Intrapartum Subjective Data: Intrapartum: Intrapartum Progress Notes Pt resting comfortably with epidural, consents to cervical exam. Objective Information: Objective Information: T PRBPMAPSpO2 [id number]% Date/Time01/04 20: 21: 20: 21: 21: 21:35 Range(36.5C - 36.8C ) (74 - 103 ) (16 - 18 ) (126 - 166 )/ (65 - 93 ) (94 - 116 ) (90% - 100% ) Pain reported at 01/04 20:30: 0 = None ---- Intake and Output ----- Mn/Dy/[facility]Out[facility] Jan 04, 2022 2:00 pm000 Physical Exam: Constitutional: alert, oriented Obstetric: FHR: 135, moderate, -accels, -decels toco: q2-4 mins VE: 5/60/-2, AROM for clear fluid Eyes: pupils equal, sclerae clear Respiratory/Thorax: normal respiratory effort Gastrointestinal: gravid abdomen, non-tender, soft Neurological: grossly intact Psychological: appropriate affect, coping well with labor Skin: warm, dry Recent Lab Results: Results: CBC: 01/04/2022 09:25 \ Hgb / \ 11.1 L / WBC Plt 10.5 224 / Hct \ / 34.1 L \ RBC: 3.76 L MCV: 91 CMP: 01/04/2022 19:00 NA+ Cl- BUN / 138 108 H 10 / ------- Glucose -- 94 K+ HCO3- Creat \ 4.0 21 0.47 L \ \ T Bili / \ 0.3 / AST x ---- x ALT 14 x ---- x 10 / Alk P \ / 192 H \ Calcium : 8.6 Anion Gap : 13 Albumin : 3.2 L T Protein : 5.4 L Assessment and Plan: Assessment: A: IUP at 39.2 wks cat I FHR IOL--> early labor gHTN based on mild-range BPx >4 hrs apart, labs unremarkable, currently asymptomatic. P: CEFM. Continue pitocin per guidelines. Reassess as indicated. Discussed expectation of active labor within 12-18 hrs of AROM, indications for cervical exams. Anticipate . Dr. Hall updated on gHTN diagnosis. ALLY Beckham Electronic Signatures: Tameka Gonsalves (MAGALY-JASPAL) (Signed 04-Jan-2022 21:46) Authored: Current Stage, Subjective Data, Objective Data, Assessment and Plan, Note Completion Last Updated: 04-Jan-2022 21:46 by Tameka Gonsalves (MAGALY-JASPAL) Normal [facility] LDHon 01-04-2022 LDH 145 U/L Normal 84 - 246 [facility] Comment on above: Performed By: #### L #### [facility] [address] [place] [address] Laboratory - Blood bankon ABO group Nom (Bld) A MG-SUPERVISOR DISPLAY FABRICATION-Ri sman 100 [facility] Work Phone: Blood group antibody screen Ql Negative [facility]OBGYN-Ri sman 100 [facility] Work Phone: Rh immune globulin screen (Bld) [Interp] Positive MG-OBGYN-R i [facility] Work Phone: Laboratory - Chemistry and C hemistry - challengeon 01-04-2022 Albumin BCP dye [Mass/Vol] 3.2 g/dL below low threshold 3.4 - 5.0 [facility]-OBGYN-Ri sman 100 [facility] Work Phone: ALT With P-5'-P [Catalytic activity/Vol] 10 U/L 7 - 45 [facility]N-Ri sman 100 [facility] Work Phone: Comment on above: Patients treated wit h Sulfasalazine may generate falsely decreased results for ALT. AST With P-5'-P [Catalytic activity/Vol] 14 U/L 9 - 39 [facility]OB[facility]N-Ri sman 100 [facility] Work Phone: CO2 [Moles/Vol] 21 mmol/L 21 - 32 MG-OBGYN- Ri sman 100 [facility] Work Phone: LDH [Catalytic activity/Vol] 145 U/L 84 - 246 [facility]OBGYN-Ri sman 100 [facility] Work Phone: Laboratory - Hematology and Cell countson 01-04-2022 Erythrocyte distribution width (RBC) [Ratio] 13.8 % See Below [facility]-OBGYN-Ri sman 100 [facility] Work Phone: Comment on above: Reference Range: 11. 5 - 14.5 Hematocrit (Bld) [Volume fraction] 34.1 % below low threshold See Below [facility]-OBGYN-Ri sman 100 [facility] Work Phone: Comment on above: Reference Range: 36. 0 - 46.0 Hemoglobin (Bld) [Mass/Vol] 11.1 g/dL below low threshold See Below [facility]-OBGYN-Ri sman 100 [facility] Work Phone: Comment on above: Reference Range: 12. 0 - 16.0 MCHC (RBC) [Mass/Vol] 32.6 g/dL See Below MG- OBGYN-Ri sman 100 [facility] Work Phone: Comment on above: Reference Range: 32. 0 - 36.0 MCV (RBC) [Entitic vol] 91 fL 80 - 100 [facility]OBGYN-Ri sman 100 [facility] Work Phone: Platelets (Bld) [#/Vol] 224 10*3/uL 150 - 450 [facility]OBGYN-Ri sman 100 [facility] Work Phone: RBC (Bld) [#/Vol] 3.76 {x10E12/L} below low threshold See Below [facility]-OBGYN-Ri sman 100 [facility] Work Phone: Comment on above: Reference Range: 4.0 0 - 5.20 WBC (Bld) [#/Vol] 10.5 10*3/uL 4.4 - 11.3 MG-SUPERVISOR DISPLAY FABRICATION-Ri sman 100 [facility] Work Phone: No Panel Informationon 01-04 >90 >90 [facility]OB[facility]N-Ri sman 100 [facility] Work Phone: Comment on above: CALCULATIONS OF ASIYA MATED GFR ARE PERFORMED USING THE 2020 CKD-EPI STUDY REFIT EQUATION WITHOUT THE RACE VARIABLE FOR THE IDMS-TRACEABLE CREATININE METHODS.https://jasn.asnjournals.org/content//A .7967942695 ORDER RECD [facility]-OBGYN-Ri sman 100 [facility] Work Phone: 0.0 {/100_WBC} 0.0-0.0 MG-OBGYN-R i [facility] Work Phone: Order Reconciliationon 01-04 Order Reconciliation Page 1 Admission Reconciliation Document Reconciliation Type: Admission requested on behalf of Grace Valdez (Advanced Practice Nurse) done by Grace Valdez (ENVIRONMENTAL SERVICES DIRECTOR-[facility]) Admission - Reconciliation: 04-Jan-2022 08:43 by: Grace Valdez (ENVIRONMENTAL SERVICES DIRECTOR-CNM) Home MedicationsEnteredLast Dose TakenReconciled with current Order Reconciliation Comment/ Additional Information Aspir 81 oral delayed release tablet 1 tab(s) orally once a [id number] Reviewed and Held Lexapro 10 mg oral tablet 1 tab(s) orally once a [id number] Escitalopram Tablet (LEXAPRO)DOSE = 10 mg Oral DailyLexapro 10 mg oral tablet continued as the inpatient order Escitalopram Prena1 oral capsule 1 cap(s) orally once a [id number] Reviewed and Held Vitamin C 04-Jan-2022 Reviewed and Held Vitamin D3 1250 mcg (50,000 intl units) oral capsule cap(s) orally once a week 04-Jan-2022 Reviewed and Held Normal [facility] Patient Profile - OB v3on Patient Profile - OB v3 Profile: Initial Info: How to be AddressedSamantha or Thierry Spoken Language PreferredEnglish Source of Informationpatient Reason for admission this visitexpected delivery Wants Family/Rep Notified of Admissionn/a; family present Notify PCPdo not notify PCP Informed of Patient Visiting Rightsyes [place] Patient Belongingsremains with patient Patient Belongings Remaining with Patientclothing Home Meds have been Reviewed and Verified with Patient/Familyyes Medications Brought to Hospitalno Info: Gravida1 (1) Term Deliveries0 (1) Deliveries0 (1) Abortions0 (1) Living Children0 (1) Patient stated [id number] Calculation of EGA based on patient stated EDD39.2 Records availableyes Trimester Care Initiatedfirst Care ProviderPetr Morrell Current Riskspolyhydramnios Previous live (any gestational age)no Planno Baby's Post Discharge Care Provider (Provider Name, Address and Phone Number) Jamal Feedingbreastmilk Benefits of Breast Milk DiscussionThe benefits of exclusive breast milk feeding and the risk of adding formula have been discussed with patient / mother. Discussion Date / [id number] 08:30 Previous Experienceyes General Health: Current Weight in kg122 kilogram(s) Current Weight in wue978.9 pound(s) Weight Methodactual (measured) Scale Typestanding Pre Weight (lb)240 pound(s) Total Weight Gain (lb)28 pound(s) Height in feet5 feet Height in inches1.97 inch(es) Height in cm157.4 centimeter(s) Height Methodstated BMI (kg/m2)49.243 square meter Patient or Family Member Reaction to Anesthesiano previous reaction Blood Avoidance/Restrictionsnon e Previous Transfusion Reactionno Rsp Based Care: How would you like to participate in your careActively What is the number one concern for you during this hospitalizationPain and having a healthy baby What is the most important thing we can do to support you during this hospitalizationcommunicat e with me about my plan of care Is there anything we need to know to best care for younone Substance: Smoking Statusnever smoker Alcohol Usedenies Drug Usedenies Drug 2 Usedenies Health Mgmt: Symptoms/Conditions Managed at [place] Barriers to Managing Healthnone Relationship/Environ: Primary Source of Support/Comfortsignifican t other Lives Withsignificant other Resource/Environmental Concernsnone Anticipated Transition [place] Services Anticipated at Transitionnone Additional Information: Information Review: Allergies and Significant Events have been Reviewed and Verified with Patient/Familyyes Allergy, Intolerance, Adverse Event: Allergies: No Known Allergies: Active Electronic Signatures: Kasia Hollins (GRACIA) (Signed 04-Jan-2022 08:33) Authored: Initial Info, Info, General Health, Rsp Based Care, Substance, Health Mgmt, Relationship/Environ, Additional Information Last Updated: 04-Jan-2022 08:33 by Kasia Hollins (GRACIA) References: 1. Data Referenced From Triage Note - OB v4 23-Dec-2021 17:47 Normal [facility] REQUEST-LEUKOREDUCED RED HORACE LSon 01-04-2022 REQUEST-LEUKOREDUCED RED CELLS ORDER RECD Normal [facility] Comment on above: Performed By: #### O SENIOR DATA ARCHITECT #### [facility] [address] [place] [address] SYPHILIS SCREENING WITH REFL EXon 01-04-2022 SYPHILIS TOTAL AB Non-Reactive Normal NONREACTIVE [facility] Comment on above: Result Comment: No s ignificant level of Treponema pallidum antibody detected. Repeat testing in 2 to 4 weeks may be considered if early infection or incubating syphilis infection is suspected. Performed By: #### S YPHR ####[id number] [place] [address] Lab Specimen Source Normal [facility] Comment on above: Performed By: #### S YPHR ####[id number] [place] [address] T. pallidum IgG+IgM IA Ql (S) Non-Reactive See Below MG-OBGYN-Ri sman 100 [facility] Work Phone: Comment on above: SOURCE: Reference Ra nge: NONREACTIVENo significant level of Treponema pallidum antibody detected. Repeat testing in 2 to 4 weeks may be considered if early infection or incubating syphilis infection is suspected. TOTAL PROTEIN, URINE SPOTon 01-04-2022 CREATININE,URINE 226.0 mg/dL Normal 20.0 - 320.0 [facility] Comment on above: Performed By: #### T PS2 #### [facility] [address] [place] [address] T. PROTEIN/CREAT RATIO 0.17 mg/mg Creat Normal 0.00 - 0.17 [facility] Comment on above: Performed By: #### T PS2 #### [facility] [address] [place] [address] TOTAL PROT,URINE SPOT 38 mg/dL High 5 - 24 [facility] Comment on above: Performed By: #### T PS2 #### [facility] [address] [place] [address] TYPE + SCREENon 01-04-2022 ABO TYPE A Normal [facility] Comment on above: Performed By: #### T +S #### [facility] [address] [place] [address] RH TYPE Positive Normal [facility] Comment on above: Performed By: #### T +S #### [facility] [address] [place] [address] Total Protein, Urine Spoton 01-04-2022 Creatinine (U) [Mass/Vol] 226.0 mg/dL See Below MG-OBGYN-Ri sman 100 [facility] Work Phone: Comment on above: Reference Range: 20. 0 - 320.0 Protein (U) [Mass/Vol] 38 mg/dL above hig h threshold 5 - 24 MG-OBGYN-Ri [address] Work Phone: Protein/Creatinine (U) [Ratio] 0.17 {mg/mg_Creat} See Below MG-OBGYN-Ri [facility] 100 [facility] Work Phone: Comment on above: Reference Range: 0.0 0 - 0.17 Uric Acid, Serumon Urate [Mass/Vol] 3.6 mg/dL Normal 2.3 - 6.7 MG-OBGYN -Ri [address] Work Phone: Comment on above: Venipuncture immedia tely after or during the administration of Metamizole may lead to falsely low results. Testing should be performed immediately prior to Metamizole dosing. Result Comment: Cony puncture immediately after or during the administration of Metamizole may lead to falsely low results. Testing should be performed immediately prior to Metamizole dosing. Performed By: #### T +S #### [facility] [address] [place] [address] Coronavirus 2019 RNA by PCR, Symptomaticon 01-02-2022 Coronavirus 2019 RNA by PCR, Symptomatic Not detected Normal See Below MG-OBGYN-Ri [address] Work Phone: Comment on above: SOURCE: Nasal, Nasop haryngealReference Range: Not Detected.This test has received FDA Emergency Use Authorization (EUA) and has been verified by [facility]. This test is only authorized for the duration of time that circumstances exist to justify the authorization of the emergency use of in vitro diagnostic tests for the detection of SARS-CoV-2 virus and/or diagnosis of COVID-19 infection under section 564(b)(1) of the Act, 21 U.S.C. 360bbb-3(b)(1), unless the authorization is terminated or revoked sooner. [facility] is certified under CLIA-88 as qualified to perform high complexity testing. Testing is performed in the [facility] laboratory located at [address] [place] [address].SARS-CoV-2/Flu/RSV Multiplex Test: Fact sheet for providers: https://www.fda.gov/media/361179/downloadFact sheet for patients: https://www.fda.gov/media/918431/download Covid 19 Resultson 2 SARS-CoV-2 (COVID-19) RNA MCKENZIE+probe Ql (Unsp spec) NEGATIVE COVID-19 Test Coronaviruses are common world-wide and are the cause of many common colds. SARS-COV2 is a new coronavirus that began circulating worldwide in 2019 so we are calling it COVID-19. It has been estimated that four out of five patients with COVID-19 will recover at home without the need for medical attention. Symptoms of COVID-19 may include cough, fever, shortness of breath, loss of taste or smell and other flu-like symptoms including chills, sore muscles, sore throat, and headache. Severe illness is more common in older people and people with other health problems such as high blood pressure, obesity, and immune system problems. If the test is positive, you have COVID-19. You will be contacted by the ordering physicians office and instructed to remain on home isolation, in accordance with CDC guidelines. You may also be contacted by the [place] Department of Health to see if any of your close contacts may have been exposed to the virus and need to quarantine. If the test is negative, you likely do not have COVID-19 at this time, but you still may have a different illness that can spread to other people (like Influenza, or the Flu) and could still be at risk for getting COVID-19. We recommend that you stay away from other people to limit the spread of illness until your symptoms are improving and you are fever-free for 24 hours without the use of fever lowering medications such as acetaminophen or ibuprofen. No test is 100% accurate so if you are still concerned you may have COVID-19, talk to your doctor about the need to continue to stay away from others. Medicines Unless your provider told you not to use the following: Acetaminophen (Tylenol and others) is generally safe. Anti-inflammatory medications, such as Ibuprofen (Advil or Motrin) or Naproxen (Aleve) can also be used. Vgbv-jie-cvzepoi cough and cold medicines can be used according to the instructions on the package. Some tkhk-kaz-yhpiyxq medicines also contain acetaminophen. Make sure you are not taking more than your recommended dose. For those not hospitalized, there is no specific treatment available for this illness. Antibiotics do not treat Coronaviruses. Follow-Up Follow up with your doctor by scheduling a virtual visit or consider follow-up at one of our urgent care fever clinics. If you are having difficulty breathing, or are very weak and having difficulty standing, this is a medical emergency. Call 911 or have someone take you to the nearest emergency room immediately. If possible, wear a facemask. Additional guidance from the CDC for patients who tested POSITIVE for COVID-19 How to isolate: Isolate yourself in a specific room at home and limit your contact with others. Use a separate bathroom from other members of the household, when possible. Leave home only to get essential medical care. Do not go to work, school or public areas. Avoid using public transportation, ride-sharing, or taxis. Restrict contact with pets and other animals. If you must care for your pet or be around animals while you are sick, wash your hands before and after your interaction and wear a facemask. Make sure that shared spaces in the home have good airflow, such as by an air conditioner or an opened window, weather permitting. Personal Hygiene Procedures: Wear a face mask when in the same room as other people or pets. If a face mask interferes with your breathing, others should wear a mask when sharing space with you. Frequent hand-washing: wash your hands with soap and water for at least 20 seconds. If soap and water are not available, use alcohol-based hand tying in machine operator. Avoid touching your eyes, nose, and mouth with unwashed hands. Household Hygiene Procedures: Avoid sharing personal household items such as dishes, glassware, cups, eating utensils, towels or bedding with other people or pets in your home. After use, these items should be washed with soap and hot water. Disinfect all high-touch surfaces every day with antibacterial cleaning solutions such as Lysol wipes, bleach, cleansers, etc. High-touch surfaces include tabletops, doorknobs, bathroom fixtures, toilets, phones, keyboards, tablets and bedside tables. Immediately clean any surfaces that may have blood, poop or body fluids on them, using antibacterial cleaning solutions such as Lysol wipes, bleach, cleansers, etc. If clothing or bedding come into contact with blood, poop or body fluids, they should be washed immediately. Follow the directions on the laundry detergent and clothing labels but hot water is recommended when possible. Stopping home isolation precautions: If possible, consult your doctor before stopping home isolation precautions. According to the CDC, you can discontinue home isolation precautions when you have met both of these criteria: Your fever and respiratory symptoms have been gone for 24 nae (more content not included)... Normal [facility] Daily Progress Note - OB-Tri ageon 12-23-2021 Daily Progress Note - OB-Triage Current Stage: Stage: Triage Subjective Data: Antepartum: Antepartum: 30yo G1 at 36 wga b/o 8wk U/S who presents to triage due to DFM. She states that in the last hour her baby has moved only 2x. She also has been having contractions for about the last 2 hours. Patient denies any VB/LOF. Notable for: - Anxiety/Depression--> lexapro (counseling as teen) - HSV--> valtrex ppx - RR NIPS - Rubella NON immune - Covid-19 , Oct 2021 - Class III Obesity OBHx: first GynHx: Hx of HPV, HSV PMH: PCOS, anxiety/depression PSH: lap nick 2012 Meds: PNV, Valtrex 500mg BID, Lexapro 10 daily All: NKDA Objective Information: Objective Information: T PRBPMAPSpO2 [id number] Date/Time12/23 17: 17: 17:50 Range (108 - 108 ) (121 - 121 )/ (78 - 78 ) (95 - 95 ) Physical Exam: Constitutional: alert, oriented Obstetric: gravid FHTs 135 baseline, moderate variability, +accels after SVE, -decels UC every 2-3 min SVE: fingertip/60/-3 Respiratory/Thorax: normal respiratory effort Extremities: no edema Psychological: appropriate affect Testing: NST Interpretation - Baby A: Baseline [id number] Variabilitymoderate (amplitude range 6 to 25 bpm) InterpretationReactive (2 15x15 accels) Accelerationspresent Decelerationsabsent Biophysical Profile - Baby A: ReactiveReactive non stress test Assessment and Plan: Assessment: A: IUP at 37w4 DFM contractions polyhydramnios P: DFM -after SVE patient states baby was moving like normal -FHTs reactive; moderate variability, +accels, -decels, 135 baseline contractions -fingertip/60/-3 -not in labor -reviewed reasons to call/come in: VB, LOF, DFM, strong consistent contractions or any questions/concerns -patient to keep ROBV for tomorrow Amelia Zamora CNM Electronic Signatures: Amelia Zamora (ENVIRONMENTAL SERVICES DIRECTOR-CNM) (Signed 23-Dec-2021 18:52) Authored: Current Stage, Subjective Data, Objective Data, Testing, Assessment and Plan, Note Completion Last Updated: 23-Dec-2021 18:52 by Amelia Zamora (ENVIRONMENTAL SERVICES DIRECTOR-CNM) Normal [facility] Discharge [id number] Discharge Profile2 Discharge Orders: Anticipated Discharge Date: Anticipated Discharge [id number] Anticipated Discharge Time18:48 DNAR: Code Status at Discharge: Full Code Triage OB: Activity: Return to normal activity as tolerated. May shower. Call Provider If: Contractions or cramps become more frequent than 8 in one hour or 4 in 20 minutes. Regular painful contractions every 5 minutes or less for one hour. Time your contractions from the beginning of one to the beginning of the next.. Pressure in your vagina or lower abdomen that may feel like the baby is pushing down. Period-like cramps or low dull backache that may come and go. Abdominal cramps that may be accompanied by diarrhea. Gush of fluid or blood from your vagina (it is normal to have spotting after vaginal exam or intercourse). Change in the type or amount of vaginal discharge. Your baby is not moving as much as usual. Temperature greater than 100.4(F) orally. Severe headache which is not relieved in 30 minutes after taking Tylenol (Acetaminophen). Blurry vision or spots before your eyes. Severe heartburn or pain on the upper right side of your abdomen that is not relieved by an antacid. Signs of Depression. Examples include: 1. Persistent sadness 2. Frequent crying 3. Sleep problems 4. Excessive worrying 5. Feeling unable to cope. Diet: Regular. Follow-Up - OB Provider: Physician/Dept/ServiceOB Provider Call to Schedule intomorrow Provider FINAL REVIEW of Orders: Final Review: Final Review of Medication Reconciliation and Orders Completedby ENVIRONMENTAL SERVICES DIRECTOR Reviewing ProviderALLY Pineda at 23-Dec-2021 18:48:55 Electronic Signatures: Amelia Zamora (MAGALY-AMIE) (Signed 23-Dec-2021 18:48) Authored: Discharge Orders, Triage OB, Provider FINAL REVIEW of Orders, Gold Form - Typing Office Worker Summary Last Updated: 23-Dec-2021 18:48 by Amelia Zamora (MAGALY-CN) [facility] Order Reconciliationon 12-23 Order Reconciliation Page 1 Discharge Reconciliation Document Reconciliation Type: Discharge requested on behalf of Amelia Zamora (Advanced Practice Nurse) done by Amelia Zamora (ENVIRONMENTAL SERVICES DIRECTOR-CN) Discharge - Reconciliation: 23-Dec-2021 18:47 by: Amelia Zamora (ENVIRONMENTAL SERVICES DIRECTOR-CN) Home Medications EnteredHOME MEDICATIONS AT DISCHARGE DateReconciliation Comment/ Additional Information Aspir 81 oral delayed release tablet 1 tab(s) orally once a day 12-Dec-2021 17:14 Aspir 81 oral delayed release tablet 1 tab(s) orally once a day 12-Dec-2021 17:14 Aspir 81 oral delayed release tablet is continued as Aspir 81 oral delayed release tablet Lexapro 10 mg oral tablet 1 tab(s) orally once a day 12-Dec-2021 17:14 Lexapro 10 mg oral tablet 1 tab(s) orally once a day 12-Dec-2021 17:14 Lexapro 10 mg oral tablet is continued as Lexapro 10 mg oral tablet Prena1 oral capsule 1 cap(s) orally once a day 12-Dec-2021 17:13 Prena1 oral capsule 1 cap(s) orally once a day 12-Dec-2021 17:13 Prena1 oral capsule is continued as Prena1 oral capsule Vitamin C 12-Dec-2021 17:13 Vitamin C 12-Dec-2021 17:13 Vitamin C is continued as Vitamin C Vitamin D3 1250 mcg (50,000 intl units) oral capsule cap(s) orally once a week 12-Dec-2021 17:13 Vitamin D3 1250 mcg (50,000 intl units) oral capsule cap(s) orally once a week 12-Dec-2021 17:13 Vitamin D3 1250 mcg (50,000 intl units) oral capsule is continued as Vitamin D3 1250 mcg (50,000 intl units) oral capsule All Active Home Medications at time of Discharge Reconciliation: 23-Dec-2021 18:47 Aspir 81 oral delayed release tablet 1 tab(s) orally once a day Lexapro 10 mg oral tablet 1 tab(s) orally once a day Prena1 oral capsule 1 cap(s) orally once a day Vitamin C Vitamin D3 1250 mcg (50,000 intl units) oral capsule cap(s) orally once a week Normal [facility] Risk Screen - OB Triageon Risk Screen - OB Triage Allergies: Allergies: Allergies: No Known Allergies: Patient Verification: Patient Verification: New W ID Band Applied in my Departmentyes Patient Identity Verified Bypatient ID Band FULL Name, include Middle, spelling matches patient's ID used for verificationyes ID Band Matches Patient ID used for Verficationyes ID Band MRN Matches EMR MRNyes Travel History: Travel History: COVID-19 Screening Completedno exposure or symptoms Travel or Exposure Past 30 DaysNO travel to International locations in the past 30 days Advance Directives: Advance Directive: Advance Directive/DNRno Advance Directive Information Givenpatient/family declined Falls Risk: Riley Fall Screen: History of falling (immediate or previous)no (0) Secondary Diagnosisno (0) Intravenous Therapy/ Heparin/Saline Lockno (0) Gait/Transferringnormal/b edrest/wheelchair (0) Ambulatory Aidsnone/bedrest/nurse assist (0) Mental Statusoriented to own ability (0) Score: Low risk (<25). Moderate risk (25-44). High risk (>44).0 Riley InterventionsLOW INTERVENTIONS: *patient oriented to surroundings and call system, * patient/family falls education completed and documented, *patients fall status communicated during bedside handoff, *whiteboard updated, *mode of toileting discussed with patient, *bed in low position with brakes locked, *call light in reach, * non-skid footwear Learning Assessment (Patient): Learning Assessment (Patient): Patient is Able to be Assessed for Learningyes Factors Influencing Readiness to Learnmotivation to learn Factors that Impact Ability to Learnnone Devices/Methods Used to Communicatenone Learning Preferencesverbal instruction Cultural Considerationsnone Developmental Considerationsnone Congregational Considerationsnone Learning Assessment (Other Learner): Other learner availableno Depression/Suicide: Depression Screen: During the past month, have you often been bothered by feeling down, depressed or hopelessno During the past month, have you often had little interest or pleasure in doing thingsno Have you had any thoughts of harming anyone elseno [place] Suicide: Risk Screen Not Applicable/Able to Answerable to be screened In the Past Month: Have you wished you were or could go to sleep and not wake upno In the Past Month: Have you had any actual thoughts of killing yourselfno Lifetime: Have you ever done, started to do, or prepared to do anything to end your lifeno [place] Suicide Risknegative Family Violence: Abuse Screen: Are you or have you been threatened or abused physically, emotionally, or sexually by anyoneno Do you feel UNSAFE going back to the place where you are livingno Clinical assessment: Are there any apparent signs of injuries/behaviors that could be related to abuse/neglectno Electronic Signatures: Shu Huff (GRACIA) (Signed 23-Dec-2021 17:47) Authored: Allergies, Patient Verification, Travel History, Advance Directives, Riley Fall Screen, Learning Assessment (Patient), Learning Assessment (Other Learner), Depression/Suicide, Family Violence Last Updated: 23-Dec-2021 17:47 by Shu Huff (GRACIA) Normal [facility] Triage Note - OB v4on 2021 Triage Note - OB v4 Triage: General Info: Time of Arrival on [id number] 17:33 Patient arrived viaambulatory Arrived Fromnak[place] Acuity Level3 Chief Complaintdecreased movement Weight in kg119 kilogram(s) Weight in dqv940.3 pound(s) Weight Methodactual (measured) Scale Typestanding Height in feet5 feet Height in inches1.97 inch(es) Height in cm157.4 centimeter(s) Height Methodstated BMI (kg/m2)48.032 square meter Home Meds have been Reviewed and Verified with Patient/Familyyes Info: Gravida1 Term Deliveries0 Deliveries0 Abortions0 Living Children0 Records availableyes Trimester Care Initiatedfirst Care ProviderCNM Current Risksnone Substance: Smoking Statusnever smoker Alcohol Usedenies Drug Usedenies Disposition/Disch: Dispositiondischarged from facility, home with own care Discharge/Transfer Summary NotePatient discharge instructions reviewed, patient verbalized understanding. Discharged to home undelivered and in stable condition. Patient Meets Criteria for Home Blood Pressure Monitorno Travel History: Travel or ExposureNO travel to International locations in the past 30 days Additional Information: Information Review: Allergies have been Reviewed and Verified with Patient/Familyyes Allergy, Intolerance, Adverse Event: Allergies: No Known Allergies: Active Electronic Signatures: Shu Huff (RN) (Signed 23-Dec-2021 18:52) Authored: General Info, Info, Substance, Disposition/Disch, Travel History, Additional Information Last Updated: 23-Dec-2021 18:52 by Shu Huff (RN) Normal [facility] No Panel Informationon 12-22 Normal [facility] Work Phone: OB Biophysical profile (w/o NST)on 12-22-2021 OB Biophysical profile (w/o NST) Indication ======== BPP for Polyhydramnios, Class 3 Obesity (BMI > 40), Polycystic Ovarian Disease, Depression History ====== General History Smoking: no Height 157 cm Height (ft) 5 ft Height (in) 2 in Previous Outcomes 1 Para 0 Maternal Assessment Height 157 cm Height (ft) 5 ft Height (in) 2 in Weight 107 kg Weight (lb) 235 lb Weight gain 0 kg Weight gain (lb) 0 lb BMI 42.98 kg/m? Physical Exam Initial weight (lb) 235 lb ========= Kumar . Number of fetuses: 1 Dating ====== LMP on: 03/29/2021 Cycle: Very certain LMP GA by LMP 38 w + 2 d SLIME by LMP: 01/03/2022 Conception: LMP Assigned: based on ultrasound (CRL), selected on 06/04/2021 Assigned GA 37 w + 3 d Assigned SLIME: 01/09/2022 Growth Overview Exam date GA BPD (mm) HC (mm) AC (mm) FL (mm) HL (mm) EFW (g) 08/29/2021 21w 0d 51.9 77% 190.2 54% 174 83% 37.3 72% 37 92% 471 91% 11/06/2021 30w 6d 80.9 85% 298 74% 270.5 55% 59.2 36% 1749 54% 12/15/2021 36w 3d 91.4 78% 335.4 69% 333.6 83% 65.1 2% 63.4 82% 2946 54% Impression ========= Ms. Gaspar presents for repeat assessment of wellbeing for previously noted polyhydramnios. Her is complicated by class III obesity - Vertex, posterior placenta, mild polyhydramnios by SDP 8.1cm - BPP 10/13 The information was discussed with the patient. Continue weekly NST per class III obesity. Delivery is scheduled at 39w. Thank you for allowing us to participate in the care of your patients. General Evaluation Cardiac activity present. FHR 144 bpm. movements: visualized. Presentation: cephalic Placenta: Placental site: posterior Umbilical cord: Cord vessels: 3 vessel cord Biophysical Profile 2: breathing movements 2: Gross body movements 2: tone 2: Amniotic fluid volume 10/13 Biophysical profile score Amniotic Fluid Assessment Amount of AF: mildly increased MVP 6.5 cm. OJHN 22.1 cm. Q1 6.3 cm, Q2 5.9 cm, Q3 3.4 cm, Q4 6.5 cm Maternal Structures Uterus / Cervix Uterus: Visualized Cervix: Not examined Ovaries / Tubes / Adnexa Rt ovary: Not visualized Lt ovary: Not visualized Method ====== Transabdominal ultrasound examination. View: Poor view. Electronically signed by: KRYSTAL CABRAL MD Normal [facility] No Panel Informationon 12-15 Normal [facility] Work Phone: OB Follow up or repeat scano n 12-15-2021 OB Follow up or repeat scan Indication ======== Suspected Problem with Growth. Class 3 Obesity (BMI > 40), Polycystic Ovarian Disease, Depression History ====== General History Smoking: no Height 157 cm Height (ft) 5 ft Height (in) 2 in Previous Outcomes 1 Para 0 Maternal Assessment Height 157 cm Height (ft) 5 ft Height (in) 2 in Weight 107 kg Weight (lb) 235 lb Weight gain 0 kg Weight gain (lb) 0 lb BMI 42.98 kg/m? Physical Exam Initial weight (lb) 235 lb ========= Kumar . Number of fetuses: 1 Dating ====== LMP on: 03/29/2021 Cycle: Very certain LMP GA by LMP 37 w + 2 d SLIME by LMP: 01/03/2022 Conception: LMP Ultrasound examination on: 12/15/2021 GA by U/S based upon: AC, BPD, Femur, HC GA by U/S 36 w + 4 d SLIME by U/S: 01/08/2022 Assigned: based on ultrasound (CRL), selected on 06/04/2021 Assigned GA 36 w + 3 d Assigned SLIME: 01/09/2022 Growth Overview Exam date GA BPD (mm) HC (mm) AC (mm) FL (mm) HL (mm) EFW (g) 08/29/2021 21w 0d 51.9 77% 190.2 54% 174 83% 37.3 72% 37 92% 471 91% 11/06/2021 30w 6d 80.9 85% 298 74% 270.5 55% 59.2 36% 1749 54% 12/15/2021 36w 3d 91.4 78% 335.4 69% 333.6 83% 65.1 2% 63.4 82% 2946 54% Impression ========= Ms. Roy presents for repeat assessment of growth for class III obesity. - Vertex, posterior placenta, mild polyhydramnios - Normal interval growth - No malformations identified on a limited survey - BPP 10/13 The information was discussed with the patient. Repeat BPP/assessment of amniotic fluid volume in 1 week. We recommend delivery at 39w. Thank you for allowing us to participate in the care of your patients. Follow-up ======== BPP 1 week. General Evaluation Cardiac activity present. FHR 145 bpm. movements: visualized. Presentation: cephalic Placenta: Placental site: posterior Umbilical cord: Cord vessels: 3 vessel cord Amniotic fluid: Amount of AF: polyhydramnios. MVP 8.2 cm. JOHN 28.3 cm. Q1 6.9 cm, Q2 7.0 cm, Q3 6.3 cm, Q4 8.2 cm Biometry Standard BPD 91.4 mm 37w 1d 78% Hadlock OFD 120.5 mm 95% INTERGROWTH-21st HC 335.4 mm 38w 3d 69% Hadlock Cerebellum tr 49.0 mm 36w 2d 43% Hill AC 333.6 mm 37w 2d 83% Hadlock Femur 65.1 mm 33w 4d 2% Hadlock Humerus 63.4 mm 82% Chitty HC / AC 1.01 EFW 2,946 g 36w 4d 54% Hadlock EFW (lb) 6 lb EFW (oz) 8 oz EFW by: Hadlock (GYH-LL-EX-FL) [employer] 5.6 mm Head / Face / Neck Cephalic index 0.76 5% Nicolaides Extremities / Bony Struc FL / BPD 0.71 FL / HC 0.19 FL / AC 0.20 Other Structures FHR 145 bpm Anatomy Cranium: Normal Lateral ventricles: Normal Midline falx: Normal Cavum septi pellucidi: Normal Cerebellum: Normal Cisterna magna: Normal Head / Neck Rt lateral ventricle: Normal Lt lateral ventricle: Normal Thalami: Normal Cerebellar lobes: Normal 4-chamber view: suboptimal RVOT view: documented previously LVOT view: documented previously 3-vessel view: Normal Heart / Thorax Cardiac axis: Normal Diaphragm: Normal Stomach: visualized Kidneys: Normal Bladder: visualized Genitals: Normal Abdomen Abdom. wall: Normal Stomach: correct situs Rt kidney: Normal Lt kidney: Normal Large bowel: Normal sex: male Wants to know sex: yes Biophysical Profile 2: breathing movements 2: Gross body movements 2: tone 2: Amniotic fluid volume 10/13 Biophysical profile score Method ====== Transabdominal ultrasound examination. View: Suboptimal view: limited by late gestational age Electronically signed by: KRYSTAL CABRAL MD [facility] Daily Progress Note - OB-Tri ageon 12-12-2021 Daily Progress Note - OB-Triage Current Stage: Stage: Triage OB Dating: EDC/EGA: Final [id number] Subjective Data: Antepartum: Vaginal Bleeding: No Contractions/Abdominal Pain: No Discharge/Loss of Fluid: No Movement: Good Fevers/Chills: No Preeclampsia Symptoms: No Antepartum: Shu is a 30yo G1 at 36wks b/o 8wk U/S who presents to triage from the office for a NRNST. Patient states she had an NST since she had Covid in October and did not have accelerations on the NST. She reports good water intake. She denies VB, LOF, and endorses good movement. Notable for: - Depression--> lexapron - HSV--> valtrex ppx - RR NIPS - Rubella immune - Covid-19 recovered, Oct 2021 - Obesity, BMI 48.8 Objective Information: Objective Information: T PRBPMAPSpO2 [id number]% Date/Time12/12 19: 17: 17: 17: 19:41 Range (88 - 113 ) (18 - 18 ) (124 - 124 )/ (83 - 83 ) (96 - 96 ) (91% - 99% ) Pain reported at 12/12 17:26: 0 = None Physical Exam: Constitutional: Alert, conversational, well-appearing Obstetric: FHT: 130, mod variability, +accels, -decels [place]: quiet Eyes: Sclera white, EOM intact, no discharge or erythema ENMT: No hearing deficit, no goiter present Head/Neck: Normocephalic, atraumatic, full range of motion intact Respiratory/Thorax: No increased work of breathing, no cough present, rate normal, clear to auscultation Cardiovascular: No edema present, RRR Gastrointestinal: Gravid Genitourinary: No suprapubic tenderness Musculoskeletal: Strength +5 in all extremities bilaterally Extremities: No calf tenderness, redness or warmth Neurological: A/O x3, conversational Breast: No redness or warmth Psychological: Behavior appropriate, interactive Skin: No rashes or lesions Testing: NST Interpretation - Baby A: Baseline [id number] Variabilitymoderate (amplitude range 6 to 25 bpm) InterpretationReactive (2 15x15 accels) AccelerationsPresent DecelerationsAbsent Biophysical Profile - Baby A: ReactiveReactive non stress test Breath MovementsAt least 30 seconds of sustained FBM/30 minutes Movements3 or more gross body movements/30 minutes ToneAt least 1 episode of motion of limb Amniotic Fluid VolumePocket of fluid at least 2 cm in 2 perpendicular planes BPP Score10 Assessment and Plan: Additional Dx: 36 weeks gestation of : Entered Date: 12-Dec-2021 21:22 Non-stress test reactive: Entered Date: 12-Dec-2021 21:22 Assessment: Shu is a 30yo G1 at 36wks b/o 8wk U/S who presents to triage from the office for a NRNST NRST - Prolonged monitoring in triage - Cat I tracing - BPP 10/[address] - Good movement IUP at 36wks - Good movement - Continue routine care - Precautions to return discussed Maternal Well-being - Vital signs stable and WNL - Emotional support and reassurance provided - All questions and concerns addressed Plan and tracing discussed with Dr. Falcon who reviewed tracing and agrees with d/c home. Padmini Newell, MSN, ENVIRONMENTAL SERVICES DIRECTOR, SQL SERVER BI DEVELOPER-C Electronic Signatures: Padmini Newell (ENVIRONMENTAL SERVICES DIRECTOR-PRIMARY HEALTH ORGANISATION MANAGER) (Signed 12-Dec-2021 21:28) Authored: Current Stage, OB Dating, Subjective Data, Objective Data, Testing, Assessment and Plan, Note Completion Ghanshyam Falcon) (Signed 12-Dec-2021 22:16) Co-Signer: Current Stage, OB Dating, Subjective Data, Objective Data, Testing, Assessment and Plan, Note Completion Last Updated: 12-Dec-2021 22:16 by Ghanshyam Falcon) Normal [facility] Discharge [id number] Discharge Profile2 Discharge Orders: DNAR: Code Status at Discharge: Full Code Triage OB: Activity: Asses movements daily. Call Provider If: Regular painful contractions every 5 minutes or less for one hour. Time your contractions from the beginning of one to the beginning of the next.. Gush of fluid or blood from your vagina (it is normal to have spotting after vaginal exam or intercourse). Change in the type or amount of vaginal discharge. Your baby is not moving as much as usual. Temperature greater than 100.4(F) orally. Severe headache which is not relieved in 30 minutes after taking Tylenol (Acetaminophen). Blurry vision or spots before your eyes. Severe heartburn or pain on the upper right side of your abdomen that is not relieved by an antacid. Signs of Depression. Examples include: 1. Persistent sadness 2. Frequent crying 3. Sleep problems 4. Excessive worrying 5. Feeling unable to cope. Follow-Up - OB Provider: CommentsContinue routine care Provider FINAL REVIEW of Orders: Final Review: Final Review of Medication Reconciliation and Orders Completedby ENVIRONMENTAL SERVICES DIRECTOR Reviewing ProviderTERRY Lindquist at 12-Dec-2021 21:19:15 Electronic Signatures: Padmini Newell (TERRY) (Signed 12-Dec-2021 21:19) Authored: Discharge Orders, Triage OB, Provider FINAL REVIEW of Orders, Gold Form - Typing Office Worker Summary Last Updated: 12-Dec-2021 21:19 by Padmini Newell (MAGALY-PRIMARY HEALTH ORGANISATION MANAGER) Normal [facility] GROUP B STREP SCREENon 12-12 GROUP B STREP SCREEN PATIENT: SA CHRISTEL ROY [place] [facility] [id number] : 86 AGE: SEX: F ORDERED BY: TOM BULL SOURCE: VAG-RECTAL COLLECTED: 12/12/21 00:00 ANTIBIOTICS AT MELISSA.: RECEIVED : 12/12/21 22:14 SITE: R E S U L T S GROUP B STREP SCREEN FINAL 12/15/21 12:37 NEGATIVE FOR GROUP B BETA STREP. Normal [facility] Comment on above: Performed By: #### O SENIOR DATA ARCHITECT #### [facility] [id number] [place] [address] Laboratory - Microbiology an d Antimicrobial susceptibilityon 12-12-2021 Bacteria identified Aer cx Nom (Genital specimen) [facility] [address] [place] Work Phone: Order Reconciliationon 12-12 Order Reconciliation Page 1 Discharge Reconciliation Document Reconciliation Type: Discharge requested on behalf of Padmini Newell (Advanced Practice Nurse) done by Padmini Newell (ENVIRONMENTAL SERVICES DIRECTOR-PRIMARY HEALTH ORGANISATION MANAGER) Discharge - Reconciliation: 12-Dec-2021 21:19 by: Padmini Newell (ENVIRONMENTAL SERVICES DIRECTOR-PRIMARY HEALTH ORGANISATION MANAGER) Home Medications EnteredHOME MEDICATIONS AT DISCHARGE DateReconciliation Comment/ Additional Information Aspir 81 oral delayed release tablet 1 tab(s) orally once a day 12-Dec-2021 17:14 Aspir 81 oral delayed release tablet 1 tab(s) orally once a day 12-Dec-2021 17:14 Aspir 81 oral delayed release tablet is continued as Aspir 81 oral delayed release tablet Lexapro 10 mg oral tablet 1 tab(s) orally once a day 12-Dec-2021 17:14 Lexapro 10 mg oral tablet 1 tab(s) orally once a day 12-Dec-2021 17:14 Lexapro 10 mg oral tablet is continued as Lexapro 10 mg oral tablet Prena1 oral capsule 1 cap(s) orally once a day 12-Dec-2021 17:13 Prena1 oral capsule 1 cap(s) orally once a day 12-Dec-2021 17:13 Prena1 oral capsule is continued as Prena1 oral capsule Vitamin C 12-Dec-2021 17:13 Vitamin C 12-Dec-2021 17:13 Vitamin C is continued as Vitamin C Vitamin D3 1250 mcg (50,000 intl units) oral capsule cap(s) orally once a week 12-Dec-2021 17:13 Vitamin D3 1250 mcg (50,000 intl units) oral capsule cap(s) orally once a week 12-Dec-2021 17:13 Vitamin D3 1250 mcg (50,000 intl units) oral capsule is continued as Vitamin D3 1250 mcg (50,000 intl units) oral capsule All Active Home Medications at time of Discharge Reconciliation: 12-Dec-2021 21:19 Aspir 81 oral delayed release tablet 1 tab(s) orally once a day Lexapro 10 mg oral tablet 1 tab(s) orally once a day Prena1 oral capsule 1 cap(s) orally once a day Vitamin C Vitamin D3 1250 mcg (50,000 intl units) oral capsule cap(s) orally once a week Normal [facility] Risk Screen - OB Triageon Risk Screen - OB Triage Allergies: Allergies: Allergies: No Known Allergies: Patient Verification: Patient Verification: New W ID Band Applied in my Departmentyes Patient Identity Verified Bypatient ID Band FULL Name, include Middle, spelling matches patient's ID used for verificationyes ID Band Matches Patient ID used for Verficationyes ID Band MRN Matches EMR MRNyes Travel History: Travel History: COVID-19 Screening Completedno exposure or symptoms Travel or Exposure Past 30 DaysNO travel to International locations in the past 30 days Advance Directives: Advance Directive: Advance Directive/DNRno Advance Directive Information Givenpatient/family declined Falls Risk: Riley Fall Screen: History of falling (immediate or previous)no (0) Secondary Diagnosisyes (15) Intravenous Therapy/ Heparin/Saline Lockno (0) Gait/Transferringnormal/b edrest/wheelchair (0) Ambulatory Aidsnone/bedrest/nurse assist (0) Mental Statusoriented to own ability (0) Score: Low risk (<25). Moderate risk (25-44). High risk (>44).15 Riley InterventionsLOW INTERVENTIONS: *patient oriented to surroundings and call system, * patient/family falls education completed and documented, *patients fall status communicated during bedside handoff, *whiteboard updated, *mode of toileting discussed with patient, *bed in low position with brakes locked, *call light in reach, * non-skid footwear Learning Assessment (Patient): Learning Assessment (Patient): Patient is Able to be Assessed for Learningyes Factors Influencing Readiness to Learnmotivation to learn Factors that Impact Ability to Learnnone Devices/Methods Used to Communicatenone Learning Preferencesverbal instruction Cultural Considerationsnone Developmental Considerationsnone Congregational Considerationsnone Learning Assessment (Other Learner): Other learner availableno Depression/Suicide: Depression Screen: During the past month, have you often been bothered by feeling down, depressed or hopelessno During the past month, have you often had little interest or pleasure in doing thingsno Have you had any thoughts of harming anyone elseno [place] Suicide: Risk Screen Not Applicable/Able to Answerable to be screened In the Past Month: Have you wished you were or could go to sleep and not wake upno In the Past Month: Have you had any actual thoughts of killing yourselfno Lifetime: Have you ever done, started to do, or prepared to do anything to end your lifeno [place] Suicide Risknegative Family Violence: Abuse Screen: Are you or have you been threatened or abused physically, emotionally, or sexually by anyoneno Do you feel UNSAFE going back to the place where you are livingno Clinical assessment: Are there any apparent signs of injuries/behaviors that could be related to abuse/neglectno Electronic Signatures: Johanna Lane (GRACIA) (Signed 12-Dec-2021 17:22) Authored: Allergies, Patient Verification, Travel History, Advance Directives, Rilye Fall Screen, Learning Assessment (Patient), Learning Assessment (Other Learner), Depression/Suicide, Family Violence Last Updated: 12-Dec-2021 17:[address]) Normal [facility] Triage Note - OB v4on 2021 Triage Note - OB v4 Triage: General Info: Time of Arrival on [id number] 17:06 Arrived Fromphysician office Acuity Level4 Chief ComplaintNRNST Weight in kg121 kilogram(s) Weight in yfq715.7 pound(s) Weight Methodactual (measured) Scale Typestanding Height in feet5 feet Height in inches1.97 inch(es) Height in cm157.4 centimeter(s) Height Methodstated BMI (kg/m2)48.84 square meter Home Meds have been Reviewed and Verified with Patient/Familyyes Info: Gravida1 Term Deliveries0 Deliveries0 Abortions0 Living Children0 Patient stated [id number] Calculation of EGA based on patient stated EDD36 Records availableyes Trimester Care Initiatedfirst Care ProviderCNM Current Risksnone Substance: Smoking Statusnever smoker Alcohol Usedenies Drug Usedenies Disposition/Disch: Dispositiondischarged from facility, home with own care Discharge/Transfer Summary Noteurgent maternal warning signs, daily movements Patient Meets Criteria for Home Blood Pressure Monitorno Admission/Observation/Dis charge/Transfer Date/[id number] 21:28 Discharged Accompanied Byspouse Discharge Modeambulatory Transportation Methodprivate car Travel History: Travel or ExposureNO travel to International locations in the past 30 days Additional Information: Information Review: Allergies have been Reviewed and Verified with Patient/Familyyes Allergy, Intolerance, Adverse Event: Allergies: No Known Allergies: Active Electronic Signatures: Johanna Lane (RN) (Signed 12-Dec-2021 17:21) Authored: General Info, Info, Substance, Travel History, Additional Information Zayda Landa (GRACIA) (Signed 12-Dec-2021 21:28) Authored: Disposition/Disch Last Updated: 12-Dec-2021 21:28 by Zayda Landa (GRACIA) Normal [facility] No Panel Informationon 11-13 Never [facility] 2420 DO Work Phone: Not depressed [facility]20 DO Work Phone: 2 1 [facility] 2420 DO Work Phone: Comment on above: Q1: As much as I alw ays couldQ2: As much as I ever didQ3: No, neverQ4: No, not at allQ5: No, not muchQ6: No, most of the time I have coped quite wellQ7: No, not at allQ8: No, not all allQ9: No, alndnM22: Never No Panel Informationon 11-06 Normal [facility] 2420 DO Work Phone: Please click on the link to view the study images Normal -[facility] on Work Phone: OB Biophysical profile (w/o NST)on 11-06-2021 OB Biophysical profile (w/o NST) Indication ======== Growth for, Suspected Problem with Growth, Class 3 Obesity (BMI > 40), Polycystic Ovarian Disease, Depression History ====== General History Smoking: no Height 157 cm Height (ft) 5 ft Height (in) 2 in Previous Outcomes 1 Para 0 Maternal Assessment Height 157 cm Height (ft) 5 ft Height (in) 2 in Weight 107 kg Weight (lb) 235 lb Weight gain 0 kg Weight gain (lb) 0 lb BMI 42.98 kg/m? Physical Exam Initial weight (lb) 235 lb ========= Kumar . Number of fetuses: 1 Dating ====== LMP on: 03/29/2021 Cycle: Very certain LMP GA by LMP 31 w + 5 d SLIME by LMP: 01/03/2022 Conception: LMP Ultrasound examination on: 11/06/2021 GA by U/S based upon: AC, BPD, Femur, HC GA by U/S 31 w + 6 d SLIME by U/S: 01/02/2022 Assigned: based on ultrasound (CRL), selected on 06/04/2021 Assigned GA 30 w + 6 d Assigned SLIME: 01/09/2022 Growth Overview Exam date GA BPD (mm) HC (mm) AC (mm) FL (mm) HL (mm) EFW (g) 08/29/2021 21w 0d 51.9 77% 190.2 54% 174 83% 37.3 72% 37 92% 471 91% 11/06/2021 30w 6d 80.9 85% 298 74% 270.5 55% 59.2 36% 1749 54% Impression ========= BMI 43, recently COVID recovered. -Normal interval growth -No malformations were identified on a limited survey The patient is aware of the above information Thank you allowing us to participate in the care of your patient Follow-up ======== A repeat evaluation has been scheduled at 36 weeks. General Evaluation Cardiac activity present. FHR 143 bpm. movements: visualized. Presentation: cephalic Placenta: Placental site: posterior, No Previa Seen Umbilical cord: Cord vessels: 3 vessel cord Amniotic fluid: Amount of AF: normal amount. MVP 7.2 cm. JOHN 22.8 cm. Q1 6.5 cm, Q2 4.7 cm, Q3 7.2 cm, Q4 4.4 cm Biometry Standard BPD 80.9 mm 32w 3d 85% Hadlock OFD 105.9 mm 91% INTERGROWTH-21st HC 298.0 mm 33w 0d 74% Hadlock Cerebellum tr 39.5 mm 31w 6d 65% Hill AC 270.5 mm 31w 1d 55% Hadlock Femur 59.2 mm 30w 6d 36% Hadlock HC / AC 1.10 EFW 1,749 g 31w 0d 54% Hadlock EFW (lb) 3 lb EFW (oz) 14 oz EFW by: Hadlock ([id number]) Extended Manager [employer] 5.8 mm Head / Face / Neck Cephalic index 0.76 19% Nicolaides Extremities / Bony Struc FL / BPD 0.73 FL / HC 0.20 FL / AC 0.22 Other Structures FHR 143 bpm Anatomy Cranium: Normal Lateral ventricles: Normal Midline falx: Normal Cavum septi pellucidi: Normal Cerebellum: Normal Cisterna magna: Normal Head / Neck Rt lateral ventricle: Normal Lt lateral ventricle: Normal Thalami: Normal Cerebellar lobes: Normal 4-chamber view: suboptimal Heart / Thorax Cardiac axis: Normal Diaphragm: Normal Stomach: Normal Kidneys: Normal Bladder: visualized Abdomen Stomach: correct situs Rt kidney: Normal Lt kidney: Normal Large bowel: Normal sex: male Wants to know sex: yes Biophysical Profile 2: breathing movements 2: Gross body movements 2: tone 2: Amniotic fluid volume 8/8 Biophysical profile score Interpretation: normal Maternal Structures Uterus / Cervix Uterus: Visualized Cervix: Not visualized Ovaries / Tubes / Adnexa Rt ovary: Visualized Rt ovary details: Normal Lt ovary: Visualized Lt ovary details: Normal Method ====== Transabdominal ultrasound examination. View: Suboptimal view: limited by maternal body habitus. Suboptimal view: limited by late gestational age Electronically signed by: JANINE BOWMAN MD Normal [facility] OB Follow up or repeat scano n 11-06-2021 OB Follow up or repeat scan Indication ======== Growth for, Suspected Problem with Growth, Class 3 Obesity (BMI > 40), Polycystic Ovarian Disease, Depression History ====== General History Smoking: no Height 157 cm Height (ft) 5 ft Height (in) 2 in Previous Outcomes 1 Para 0 Maternal Assessment Height 157 cm Height (ft) 5 ft Height (in) 2 in Weight 107 kg Weight (lb) 235 lb Weight gain 0 kg Weight gain (lb) 0 lb BMI 42.98 kg/m? Physical Exam Initial weight (lb) 235 lb ========= Kumar . Number of fetuses: 1 Dating ====== LMP on: 03/29/2021 Cycle: Very certain LMP GA by LMP 31 w + 5 d SLIME by LMP: 01/03/2022 Conception: LMP Ultrasound examination on: 11/06/2021 GA by U/S based upon: AC, BPD, Femur, HC GA by U/S 31 w + 6 d SLIME by U/S: 01/02/2022 Assigned: based on ultrasound (CRL), selected on 06/04/2021 Assigned GA 30 w + 6 d Assigned SLIME: 01/09/2022 Growth Overview Exam date GA BPD (mm) HC (mm) AC (mm) FL (mm) HL (mm) EFW (g) 08/29/2021 21w 0d 51.9 77% 190.2 54% 174 83% 37.3 72% 37 92% 471 91% 11/06/2021 30w 6d 80.9 85% 298 74% 270.5 55% 59.2 36% 1749 54% Impression ========= BMI 43, recently COVID recovered. -Normal interval growth -No malformations were identified on a limited survey The patient is aware of the above information Thank you allowing us to participate in the care of your patient Follow-up ======== A repeat evaluation has been scheduled at 36 weeks. General Evaluation Cardiac activity present. FHR 143 bpm. movements: visualized. Presentation: cephalic Placenta: Placental site: posterior, No Previa Seen Umbilical cord: Cord vessels: 3 vessel cord Amniotic fluid: Amount of AF: normal amount. MVP 7.2 cm. JOHN 22.8 cm. Q1 6.5 cm, Q2 4.7 cm, Q3 7.2 cm, Q4 4.4 cm Biometry Standard BPD 80.9 mm 32w 3d 85% Hadlock OFD 105.9 mm 91% INTERGROWTH-21st HC 298.0 mm 33w 0d 74% Hadlock Cerebellum tr 39.5 mm 31w 6d 65% Hill AC 270.5 mm 31w 1d 55% Hadlock Femur 59.2 mm 30w 6d 36% Hadlock HC / AC 1.10 EFW 1,749 g 31w 0d 54% Hadlock EFW (lb) 3 lb EFW (oz) 14 oz EFW by: Hadlock ([id number]) Extended Manager [employer] 5.8 mm Head / Face / Neck Cephalic index 0.76 19% Nicolaides Extremities / Bony Struc FL / BPD 0.73 FL / HC 0.20 FL / AC 0.22 Other Structures FHR 143 bpm Anatomy Cranium: Normal Lateral ventricles: Normal Midline falx: Normal Cavum septi pellucidi: Normal Cerebellum: Normal Cisterna magna: Normal Head / Neck Rt lateral ventricle: Normal Lt lateral ventricle: Normal Thalami: Normal Cerebellar lobes: Normal 4-chamber view: suboptimal Heart / Thorax Cardiac axis: Normal Diaphragm: Normal Stomach: Normal Kidneys: Normal Bladder: visualized Abdomen Stomach: correct situs Rt kidney: Normal Lt kidney: Normal Large bowel: Normal sex: male Wants to know sex: yes Biophysical Profile 2: breathing movements 2: Gross body movements 2: tone 2: Amniotic fluid volume 10/13 Biophysical profile score Interpretation: normal Maternal Structures Uterus / Cervix Uterus: Visualized Cervix: Not visualized Ovaries / Tubes / Adnexa Rt ovary: Visualized Rt ovary details: Normal Lt ovary: Visualized Lt ovary details: Normal Method ====== Transabdominal ultrasound examination. View: Suboptimal view: limited by maternal body habitus. Suboptimal view: limited by late gestational age Electronically signed by: JANINE BOWMAN MD Normal [facility] Coronavirus 2019 RNA by PCR, Symptomaticon 10-27-2021 Coronavirus 2019 RNA by PCR, Symptomatic Detected Abnormal See Below Raúl ramírez 8137 DO Work Phone: Comment on above: SOURCE: Nasal, Nasop haryngealReference Range: Not Detected.This test has received FDA Emergency Use Authorization (EUA) and has been verified by [facility]. This test is only authorized for the duration of time that circumstances exist to justify the authorization of the emergency use of in vitro diagnostic tests for the detection of SARS-CoV-2 virus and/or diagnosis of COVID-19 infection under section 564(b)(1) of the Act, 21 U.S.C. 360bbb-3(b)(1), unless the authorization is terminated or revoked sooner. [facility] is certified under CLIA-88 as qualified to perform high complexity testing. Testing is performed in the [facility] laboratory located at [address] [place] [address].SARS-CoV-2/Flu/RSV Multiplex Test: Fact sheet for providers: https://www.fda.gov/media/775586/downloadFact sheet for patients: https://www.fda.gov/media/133074/download Covid 19 Resultson 2 SARS-CoV-2 (COVID-19) RNA MCKENZIE+probe Ql (Unsp spec) POSITIVE COVID-19 Test Coronaviruses are common world-wide and are the cause of many common colds. SARS-COV2 is a new coronavirus that began circulating worldwide in 2019 so we are calling it COVID-19. It has been estimated that four out of five patients with COVID-19 will recover at home without the need for medical attention. Symptoms of COVID-19 may include cough, fever, shortness of breath, loss of taste or smell and other flu-like symptoms including chills, sore muscles, sore throat, and headache. Severe illness is more common in older people and people with other health problems such as high blood pressure, obesity, and immune system problems. If the test is positive, you have COVID-19. You will be contacted by the ordering physicians office and instructed to remain on home isolation, in accordance with CDC guidelines. You may also be contacted by the [facility] to see if any of your close contacts may have been exposed to the virus and need to quarantine. If the test is negative, you likely do not have COVID-19 at this time, but you still may have a different illness that can spread to other people (like Influenza, or the Flu) and could still be at risk for getting COVID-19. We recommend that you stay away from other people to limit the spread of illness until your symptoms are improving and you are fever-free for 24 hours without the use of fever lowering medications such as acetaminophen or ibuprofen. No test is 100% accurate so if you are still concerned you may have COVID-19, talk to your doctor about the need to continue to stay away from others. Medicines Unless your provider told you not to use the following: Acetaminophen (Tylenol and others) is generally safe. Anti-inflammatory medications, such as Ibuprofen (Advil or Motrin) or Naproxen (Aleve) can also be used. Utlp-kpy-pdavcvp cough and cold medicines can be used according to the instructions on the package. Some novt-poe-twzykzo medicines also contain acetaminophen. Make sure you are not taking more than your recommended dose. For those not hospitalized, there is no specific treatment available for this illness. Antibiotics do not treat Coronaviruses. Follow-Up Follow up with your doctor by scheduling a virtual visit or consider follow-up at one of our urgent care fever clinics. If you are having difficulty breathing, or are very weak and having difficulty standing, this is a medical emergency. Call 911 or have someone take you to the nearest emergency room immediately. If possible, wear a facemask. Additional guidance from the CDC for patients who tested POSITIVE for COVID-19 How to isolate: Isolate yourself in a specific room at home and limit your contact with others. Use a separate bathroom from other members of the household, when possible. Leave home only to get essential medical care. Do not go to work, school or public areas. Avoid using public transportation, ride-sharing, or taxis. Restrict contact with pets and other animals. If you must care for your pet or be around animals while you are sick, wash your hands before and after your interaction and wear a facemask. Make sure that shared spaces in the home have good airflow, such as by an air conditioner or an opened window, weather permitting. Personal Hygiene Procedures: Wear a face mask when in the same room as other people or pets. If a face mask interferes with your breathing, others should wear a mask when sharing space with you. Frequent hand-washing: wash your hands with soap and water for at least 20 seconds. If soap and water are not available, use alcohol-based hand tying in machine operator. Avoid touching your eyes, nose, and mouth with unwashed hands. Household Hygiene Procedures: Avoid sharing personal household items such as dishes, glassware, cups, eating utensils, towels or bedding with other people or pets in your home. After use, these items should be washed with soap and hot water. Disinfect all high-touch surfaces every day with antibacterial cleaning solutions such as Lysol wipes, bleach, cleansers, etc. High-touch surfaces include tabletops, doorknobs, bathroom fixtures, toilets, phones, keyboards, tablets and bedside tables. Immediately clean any surfaces that may have blood, poop or body fluids on them, using antibacterial cleaning solutions such as Lysol wipes, bleach, cleansers, etc. If clothing or bedding come into contact with blood, poop or body fluids, they should be washed immediately. Follow the directions on the laundry detergent and clothing labels but hot water is recommended when possible. Stopping home isolation precautions: If possible, consult your doctor before stopping home isolation precautions. According to the CDC, you can discontinue home isolation precautions when you have met both of these criteria: Your fever and respiratory symptoms have been gone for 24 nae (more content not included)... Normal [facility] GLUCOSE,1 HR SCREEN, PREGon 10-04-2021 Glucose [Mass/Vol] 116 mg/dL Normal <135 [facility] Comment on above: Result Comment: Diag nostic value with glucose loading dose of 50 g. Reference values from [place] [employer]. Diabetes Care 2015;38(Suppl.1):S8-S16 Performed By: #### O SENIOR DATA ARCHITECT #### [facility] [address] [place] [id number] RUBELLA IGG ABon 10-04-2021 RUBELLA IGG AB Negative Normal [facility] Comment on above: Result Comment: INTE RPRETATIVE COMMENT NEGATIVE: No IgG antibodies specific to Rubella detected. It is likely that the patient has not had a previous exposure to Rubella through infection or vaccination. Alternatively, the patient may have been exposed to Rubella but a failure to respond may indicate immunodeficiency. EQUIVOCAL:Equivocal results; obtain additional sample for retesting. POSITIVE: IgG antibody to Rubella detected. This may indicate that the patient was exposed to Rubella through infection or vaccination. The interpretation of serological tests should take into account the immunological status of the patient. Test results for patients, including immunocompromised patients, neonates, and pediatric patients, reflect their capacity to respond immunologically to the virus as well as their exposure to the pathogen. Patients treated with IVIG may demonstrate altered results in serological assays. Performed By: #### T +S #### [facility] [address] [place] [address] SYPHILIS SCREENING WITH REFL EXon 10-04-2021 SYPHILIS TOTAL AB Non-Reactive Normal NONREACTIVE [facility] Comment on above: Result Comment: No s ignificant level of Treponema pallidum antibody detected. Repeat testing in 2 to 4 weeks may be considered if early infection or incubating syphilis infection is suspected. Performed By: #### T +S #### [facility] [address] [place] [address] CBC ANEMIA PANEL WITH REFLEX ,PREGNANCYon 10-03-2021 Erythrocyte distribution width (RBC) [Ratio] 14.0 % Normal 11.5 - 14.5 [facility] Comment on above: Performed By: #### T +S #### [facility] [address] [place] [address] Hematocrit (Bld) [Volume fraction] 34.7 % Low 36.0 - 46.0 [facility] Comment on above: Performed By: #### T +S #### [facility] [address] [place] [address] Hemoglobin (Bld) [Mass/Vol] 11.1 g/dL Low 12.0 - 16.0 [facility] Comment on above: Performed By: #### T +S #### [facility] [address] [place] [address] MCHC (RBC) [Mass/Vol] 32.0 g/dL Normal 32.0 - 36.0 [facility] Comment on above: Performed By: #### T +S #### [facility] [address] [place] [address] MCV (RBC) [Entitic vol] 91 fL Normal 80 - 100 [facility] Comment on above: Performed By: #### T +S #### [facility] [address] [place] [address] Platelets (Bld) [#/Vol] 279 10*3/uL Normal 150 - 450 [facility] Comment on above: Performed By: #### T +S #### [facility] [address] [place] [address] RBC 3.81 x10E12/L Low 4.00 - 5.20 [facility] Comment on above: Performed By: #### T +S #### [facility] [address] [place] [address] REFLEX ADDED, ANEMIA PANEL NONE Normal [facility] Comment on above: Performed By: #### T +S #### [facility] [address] [place] [address] WBC (Bld) [#/Vol] 11.1 10*3/uL Normal 4.4 - 11.3 [facility] Comment on above: Performed By: #### T +S #### [facility] [address] [place] [address] Glucose, 1 Hour Screen, Preg nancyon 10-03-2021 Glucose 1 Hr post 50 g glucose PO [Mass/Vol] 116 mg/dL <135 [facility] 2420 DO Work Phone: Comment on above: Diagnostic value wit h glucose loading dose of 50 g. Reference values from [employer] [employer]. Diabetes Care 2015;38(Suppl.1):S8-S16 Laboratory - Hematology and Cell countson 10-03-2021 Erythrocyte distribution width (RBC) [Ratio] 14.0 % See Below [facility] 2420 DO Work Phone: Comment on above: Reference Range: 11. 5 - 14.5 Hematocrit (Bld) [Volume fraction] 34.7 % below low threshold See Below [facility] 2420 DO Work Phone: Comment on above: Reference Range: 36. 0 - 46.0 Hemoglobin (Bld) [Mass/Vol] 11.1 g/dL below low threshold See Below [facility] 2420 DO Work Phone: Comment on above: Reference Range: 12. 0 - 16.0 MCHC (RBC) [Mass/Vol] 32.0 g/dL See Below [facility] 2420 DO Work Phone: Comment on above: Reference Range: 32. 0 - 36.0 MCV (RBC) [Entitic vol] 91 fL 80 - 100 [facility] 2420 DO Work Phone: Platelets (Bld) [#/Vol] 279 10*3/uL 150 - 450 [facility] 2420 DO Work Phone: RBC (Bld) [#/Vol] 3.81 {x10E12/L} below low threshold See Below [facility] 2420 DO Work Phone: Comment on above: Reference Range: 4.0 0 - 5.20 WBC (Bld) [#/Vol] 11.1 10*3/uL 4.4 - 11.3 [facility] 2420 DO Work Phone: No Panel Informationon 10-03 NONE [facility] 2420 DO Work Phone: Rubella IgG Antibodyon 10-03 Rubella virus IgG IA Ql Negative [facility] 2420 DO Work Phone: Comment on above: INTERPRETATIVE COMME NT NEGATIVE: No IgG antibodies specific to Rubella detected. It is likely that the patient has not had a previous exposure to Rubella through infection or vaccination. Alternatively, the patient may have been exposed to Rubella but a failure to respond may indicate immunodeficiency. EQUIVOCAL:Equivocal results; obtain additional sample for retesting. POSITIVE: IgG antibody to Rubella detected. This may indicate that the patient was exposed to Rubella through infection or vaccination.The interpretation of serological tests should take into accountthe immunological status of the patient. Test results forpatients, including immunocompromised patients, neonates, andpediatric patients, reflect their capacity to respondimmunologically to the virus as well as their exposure to thepathogen. Patients treated with IVIG may demonstrate alteredresults in serological assays. SYPHILIS SCREENING WITH REFL EXon 10-03-2021 Lab Specimen Source Normal [facility] Comment on above: Performed By: #### T +S #### [facility] [address] [place] [address] T. pallidum IgG+IgM IA Ql (S) Non-Reactive See Below [facility] 2420 DO Work Phone: Comment on above: SOURCE: Reference Ra nge: NONREACTIVENo significant level of Treponema pallidum antibody detected. Repeat testing in 2 to 4 weeks may be considered if early infection or incubating syphilis infection is suspected. Tobacco Screening.on 022 Adult depression screening assessment No [facility] 2420 DO Work Phone: Fall risk assessment a) No falls within the last year [facility] 2420 DO Work Phone: [phone] Tobacco use status [facility] b) No [facility] 2420 DO Work Phone: No Panel Informationon 08-29 Normal [facility] 2420 DO Work Phone: OB Completed scan + Detailed Anatomyon 08-29-2021 OB Completed scan + Detailed Anatomy Indication ======== Abnormality Suspected, Class 3 Obesity (BMI > 40), Polycystic Ovarian Disease, Depression History ====== General History Smoking: no Height 157 cm Height (ft) 5 ft Height (in) 2 in Previous Outcomes 1 Para 0 Maternal Assessment Height 157 cm Height (ft) 5 ft Height (in) 2 in Weight 107 kg Weight (lb) 235 lb Weight gain 0 kg Weight gain (lb) 0 lb BMI 42.98 kg/m? Physical Exam Initial weight (lb) 235 lb ========= Kumar . Number of fetuses: 1 Dating ====== LMP on: 03/29/2021 Cycle: Very certain LMP GA by LMP 21 w + 6 d SLIME by LMP: 01/03/2022 Conception: LMP Ultrasound examination on: 08/29/2021 GA by U/S based upon: AC, BPD, Femur, HC GA by U/S 21 w + 6 d SLIME by U/S: 01/03/2022 Assigned: based on ultrasound (CRL), selected on 06/04/2021 Assigned GA 21 w + 0 d Assigned SLIME: 01/09/2022 Growth Overview Exam date GA BPD (mm) HC (mm) AC (mm) FL (mm) HL (mm) EFW (g) 08/29/2021 21w 0d 51.9 77% 190.2 54% 174 83% 37.3 72% 37 92% 471 91% Impression ========= A targeted anatomic survey was indicated. Maternal BMI 43, depression on lexapro. S/p risk-reducing NIPS. - biometry is consistent with the stated gestational age. -Detailed anatomic evaluation of the brain/ventricles, face, heart/outflow tracts and chest anatomy, abdominal organ specific anatomy, number/length/architectur e of limbs and detailed evaluation of the umbilical cord and placenta and other anatomy as clinically indicated was performed. -No malformations were identified on this comprehensive survey within limitations of sonographic evaluation at this gestational age and maternal acoustic properties. Though all structures were imaged, the resolution was poor which limits the ability to detect malformations. Thank you for allowing us to participate in the care of your patient. Given maternal BMI recommend growth assessments at 30w and 36w. Attending Attestation: I personally reviewed the image(s)/study and fellow interpretation. I agree with the findings as stated. Follow-up ======== A repeat evaluation has been scheduled at 30 weeks. General Evaluation Cardiac activity present. FHR 146 bpm. movements: visualized. Presentation: cephalic Placenta: Placental site: posterior, fundal Umbilical cord: Cord vessels: 3 vessel cord. Insertion site: placental insertion: normal Amniotic fluid: Amount of AF: normal amount Biometry Standard BPD 51.9 mm 21w 5d 77% Hadlock OFD 66.7 mm 72% INTERGROWTH-21st HC 190.2 mm 21w 2d 54% Hadlock Cerebellum tr 22.7 mm 21w 1d 68% Hill Nuchal fold 5.7 mm AC 174.0 mm 22w 2d 83% Hadlock Femur 37.3 mm 21w 6d 72% Hadlock Humerus 37.0 mm 92% Chitty HC / AC 1.09 13% Hadlock EFW 471 g 21w 6d 91% Hadlock EFW (lb) 1 lb EFW (oz) 1 oz EFW by: Hadlock ([id number]) [employer] 7.9 mm CM 6.5 mm 85% Nicolaides Nasal bone 6.0 mm Head / Face / Neck Cephalic index 0.78 40% Nicolaides Nasal bone: present Extremities / Bony Struc FL / BPD 0.72 46% Hadlock FL / HC 0.20 79% Hadlock FL / AC 0.21 26% Hadlock Other Structures FHR 146 bpm Anatomy Cranium: Normal Lateral ventricles: Normal Choroid plexus: Normal Midline falx: Normal Cavum septi pellucidi: Normal Cerebellum: Normal Cisterna magna: Normal Head / Neck Head size: Normal Head shape: Normal Rt lateral ventricle: Normal Lt lateral ventricle: Normal Rt choroid plexus: Normal Lt choroid plexus: Normal Thalami: Normal Cerebellar lobes: Normal Vermis: Normal Neck: Normal Neck: No neck masses seen Lips: Normal Profile: Normal Nose: Normal Face Nasal bone: present Maxilla: Normal Mandible: Normal Orbits: Normal 4-chamber view: Normal RVOT view: Normal LVOT view: Normal 3-vessel view: Normal 7-fxpzqi-khazexe view: Normal Heart / Thorax Situs: situs solitus (normal) Aortic arch view: Normal Cardiac position: levocardia (normal) Cardiac axis: Normal Cardiac size: normal (approx. 1/3 of thoracic area) Cardiac proportions: proportioned (normal) Cardiac rhythm: regular (normal) Rt lung: Normal Lt lung: Normal Rt diaphragm: Normal Lt diaphragm: Normal Cord insertion: Normal Stomach: Normal Kidneys: Normal Bladder: Normal Genitals: Normal Abdomen Abdom. wall: Normal Stomach: Stomach size and situs appear normal Rt kidney: Normal Lt kidney: Normal Small bowel: Normal Large bowel: Normal Cervical spine: Normal Thoracic spine: Normal Lumbar spine: Normal Sacral spine: Normal Arms: Normal Hands: normal Legs: Normal Feet: normal Rt upper arm: Normal Rt forearm: Normal Rt hand: Normal (more content not included)... Normal [facility] No Panel Informationon 06-30 Normal [facility] [address] [place] Work Phone: OB NT (Nuchal Translucency)o n 06-30-2021 OB NT (Nuchal Translucency) Indication ======== Nuchal Translucency Screening, Class 3 Obesity (BMI > 40), Polycystic Ovarian Disease History ====== General History Smoking: no Height 157 cm Height (ft) 5 ft Height (in) 2 in Previous Outcomes 1 Para 0 Maternal Assessment Height 157 cm Height (ft) 5 ft Height (in) 2 in Weight 107 kg Weight (lb) 235 lb Weight gain 0 kg Weight gain (lb) 0 lb BMI 42.98 kg/m? Physical Exam Initial weight (lb) 235 lb ========= Kumar . Number of fetuses: 1 Dating ====== LMP on: 03/29/2021 Cycle: Very certain LMP GA by LMP 13 w + 2 d SLIME by LMP: 01/03/2022 Conception: LMP Ultrasound examination on: 06/30/2021 GA by U/S based upon: CRL GA by U/S 12 w + 6 d SLIME by U/S: 01/06/2022 Assigned: based on ultrasound (CRL), selected on 06/04/2021 Assigned GA 12 w + 3 d Assigned SLIME: 01/09/2022 Impression ========= A first trimester anatomic survey is being performed - In utero gestational sac with a live fetus - [place] rump length is consistent with given SLIME - organ survey is within normal limits for the gestational age - Nuchal translucency is within normal limits measuring 1.8 mm - Normal appearing adnexa As NIPS does not screen for other malformations or genetic syndromes, a first trimester anatomic survey and NT was performed and noted to be normal. A first trimester evaluation cannot exclude major malformations, therefore a second trimester anatomic survey was scheduled. Thank you for allowing us to participate in the care of your patient Follow-up ======== A repeat evaluation has been scheduled at 20 weeks. General Evaluation Cardiac activity present Placenta: Too early to evaluate Cord vessels: normal placental insertion Amniotic fluid: normal amount Biometry Standard FHR 156 bpm CRL 68.8 mm 12w 6d 94% Pexsters NT 1.80 mm Anatomy Heart: Normal [place] and Situs. Stomach: Visible, with correct situs. Bladder: Visible. Arms: Both Upper Extremities Seen. Legs: Both Lower Extremities Seen. The following structures appear normal: Cranium. Face: Nasal Bone Present. Neck. Abdominal wall: Normal abdominal cord insertion. Maternal Structures Uterus / Cervix Uterus: Visualized Uterus position: anteverted Fibroids: No fibroids identified Cervix: Visualized Cervix details: Normal Ovaries / Tubes / Adnexa Rt ovary: Visualized Rt ovary details: Normal Rt ovary morphology: normal Rt ovary D1 29.3 mm Rt ovary D2 23.1 mm Rt ovary D3 22.1 mm Rt ovary Vol 7.8 cm? Lt ovary: Visualized Lt ovary details: Corpus Luteum Lt ovary morphology: normal Lt ovary D1 30.0 mm Lt ovary D2 25.5 mm Lt ovary D3 27.1 mm Lt ovary Vol 10.9 cm? Cul de Sac / Bladder / Kidneys / Other Cul de Sac: Visualized Free fluid: No free fluid visualized Method ====== Transabdominal ultrasound examination. View: Suboptimal view: limited by maternal body habitus Electronically signed by: FLEX HOWE MD Normal [facility] OB Repeat 1st Trimester TAon 06-30-2021 OB Repeat 1st Trimester TA Indication ======== Nuchal Translucency Screening, Class 3 Obesity (BMI > 40), Polycystic Ovarian Disease History ====== General History Smoking: no Height 157 cm Height (ft) 5 ft Height (in) 2 in Previous Outcomes 1 Para 0 Maternal Assessment Height 157 cm Height (ft) 5 ft Height (in) 2 in Weight 107 kg Weight (lb) 235 lb Weight gain 0 kg Weight gain (lb) 0 lb BMI 42.98 kg/m? Physical Exam Initial weight (lb) 235 lb ========= Kumar . Number of fetuses: 1 Dating ====== LMP on: 03/29/2021 Cycle: Very certain LMP GA by LMP 13 w + 2 d SLIME by LMP: 01/03/2022 Conception: LMP Ultrasound examination on: 06/30/2021 GA by U/S based upon: CRL GA by U/S 12 w + 6 d SLIME by U/S: 01/06/2022 Assigned: based on ultrasound (CRL), selected on 06/04/2021 Assigned GA 12 w + 3 d Assigned SLIME: 01/09/2022 Impression ========= A first trimester anatomic survey is being performed - In utero gestational sac with a live fetus - [place] rump length is consistent with given SLIME - organ survey is within normal limits for the gestational age - Nuchal translucency is within normal limits measuring 1.8 mm - Normal appearing adnexa As NIPS does not screen for other malformations or genetic syndromes, a first trimester anatomic survey and NT was performed and noted to be normal. A first trimester evaluation cannot exclude major malformations, therefore a second trimester anatomic survey was scheduled. Thank you for allowing us to participate in the care of your patient Follow-up ======== A repeat evaluation has been scheduled at 20 weeks. General Evaluation Cardiac activity present Placenta: Too early to evaluate Cord vessels: normal placental insertion Amniotic fluid: normal amount Biometry Standard FHR 156 bpm CRL 68.8 mm 12w 6d 94% Pexsters NT 1.80 mm Anatomy Heart: Normal [place] and Situs. Stomach: Visible, with correct situs. Bladder: Visible. Arms: Both Upper Extremities Seen. Legs: Both Lower Extremities Seen. The following structures appear normal: Cranium. Face: Nasal Bone Present. Neck. Abdominal wall: Normal abdominal cord insertion. Maternal Structures Uterus / Cervix Uterus: Visualized Uterus position: anteverted Fibroids: No fibroids identified Cervix: Visualized Cervix details: Normal Ovaries / Tubes / Adnexa Rt ovary: Visualized Rt ovary details: Normal Rt ovary morphology: normal Rt ovary D1 29.3 mm Rt ovary D2 23.1 mm Rt ovary D3 22.1 mm Rt ovary Vol 7.8 cm? Lt ovary: Visualized Lt ovary details: Corpus Luteum Lt ovary morphology: normal Lt ovary D1 30.0 mm Lt ovary D2 25.5 mm Lt ovary D3 27.1 mm Lt ovary Vol 10.9 cm? Cul de Sac / Bladder / Kidneys / Other Cul de Sac: Visualized Free fluid: No free fluid visualized Method ====== Transabdominal ultrasound examination. View: Suboptimal view: limited by maternal body habitus Electronically signed by: FLEX HOWE MD Normal [facility] TOBACCO SCREEN MEDICAL PL AN ONLYon 06-24-2021 TOBACCO SCREEN, URINE Negative Normal [facility] Comment on above: Result Comment: Coti nine, a metabolite of nicotine, is measured to screen for nicotine exposure. The cut-off is set at 300ng/mL to detect active exposure (smoking). This test was developed and its performance characteristics were determined by the [facility]. Performed By: #### O SENIOR DATA ARCHITECT #### [facility] [id number] [place] [address] AN ONLYon 06-23-2021 Cotinine Screen Ql (U) Negative [facility] -OBОЛЬГАN-MA C [address] [place] Work Phone: Comment on above: Cotinine, a metaboli te of nicotine, is measured to screen for nicotine exposure. The cut-off is set at 300ng/mL to detect active exposure (smoking).This test was developed and its performance characteristics were determined by the [facility]. GC + CHLAMYDIA BY AMPLIFIED DETECTIONon 06-17-2021 CHLAMYDIA TRACH.,AMPLIFIED Negative Normal Negative [facility] Comment on above: Result Comment: The APTIMA Combo 2 assay is FDA-approved for Chlamydia trachomatis and Neisseria gonorrhoeae testing on female endocervical and vaginal swabs, ThinPrep liquid pap samples, male urine samples and urethral swabs. Performance characteristics for Chlamydia trachomatis and Neisseria gonorrhoeae testing on specific svm-PQV-kubspmws sample types (female urine samples) have been validated by [facility]. This laboratory is certified by CLIA to perform high complexity testing. Samples from all other sites are not validated for this method. Performed By: #### O SENIOR DATA ARCHITECT #### [facility] [address] [place] [address] N.GONORRHEA,AMPLIFIED Negative Normal Negative [facility] Comment on above: Result Comment: The APTIMA Combo 2 assay is FDA-approved for Chlamydia trachomatis and Neisseria gonorrhoeae testing on female endocervical and vaginal swabs, ThinPrep liquid pap samples, male urine samples and urethral swabs. Performance characteristics for Chlamydia trachomatis and Neisseria gonorrhoeae testing on specific qsh-KIL-asydjerl sample types (female urine samples) have been validated by [facility]. This laboratory is certified by CLIA to perform high complexity testing. Samples from all other sites are not validated for this method. Performed By: #### O SENIOR DATA ARCHITECT #### [facility] [address] [place] [address] PATH REVIEW-HGB IDENTIFICATI ONon 06-17-2021 PATH REV-HGB IDENT. R.[place] Normal [facility] Comment on above: Result Comment: By h er/his signature above, the Pathologist listed as making the final interpretation certifies that she/he has personally reviewed this case. Performed By: #### O SENIOR DATA ARCHITECT #### [facility] [address] [place] [address] HEMOGLOBIN IDENTIFICATIONon 06-16-2021 HEMOGLOBIN A 97.0 % Normal [facility] Comment on above: Performed By: #### H MAGGI ####[id number] [place] [address] HEMOGLOBIN A2 2.6 % Normal [facility] Comment on above: Result Comment: HGB A2 values may be falsely elevated in the presence of HGB S. Performed By: #### H MAGGI ####[id number] [place] [address] HEMOGLOBIN F 0.4 % Normal [facility] Comment on above: Performed By: #### H MAGGI ####[id number] [place] [address] INTERPRETATION SEE COMMENT Normal [facility] Comment on above: Result Comment: Norm al Performed By: #### H MAGGI ####[id number] [place] [address] HEMOGLOBIN A1Con 06-14-2021 Glucose [Mass/Vol] 103 mg/dL Normal [facility] Comment on above: Performed By: #### O SENIOR DATA ARCHITECT #### [facility] [address] [place] [address] HbA1c (Bld) [Mass fraction] 5.2 % Normal [facility] Comment on above: Result Comment: Diag nosis of Diabetes-Adults Non-Diabetic: < or = 5.6% Increased risk for developing diabetes: 5.7-6.4% Diagnostic of diabetes: > or = 6.5% . Monitoring of Diabetes Age (y) Therapeutic Goal (%) Adults: >18 <7.0 Pediatrics: 13-18 <7.5 7-12 <8.0 0- 6 7.5-8.5 [place] [employer]. Diabetes Care 33(S1), Mar 2009. Performed By: #### O SENIOR DATA ARCHITECT #### [facility] [address] [place] [address] CBC ANEMIA PANEL WITH REFLEX ,PREGNANCYon 06-13-2021 Erythrocyte distribution width (RBC) [Ratio] 13.7 % Normal 11.5 - 14.5 [facility] Comment on above: Performed By: #### A NEMI ####[address] [id number] Hematocrit (Bld) [Volume fraction] 38.2 % Normal 36.0 - 46.0 [facility] Comment on above: Performed By: #### A NEMI ####[address] [id number] Hemoglobin (Bld) [Mass/Vol] 11.8 g/dL Low 12.0 - 16.0 [facility] Comment on above: Performed By: #### A NEMI ####[address] [id number] MCHC (RBC) [Mass/Vol] 30.9 g/dL Low 32.0 - 36.0 [facility] Comment on above: Performed By: #### A NEMI ####[address] [id number] MCV (RBC) [Entitic vol] 88 fL Normal 80 - 100 [facility] Comment on above: Performed By: #### A NEMI ####[address] [id number] Platelets (Bld) [#/Vol] 347 10*3/uL Normal 150 - 450 [facility] Comment on above: Performed By: #### A NEMI ####[address] [id number] RBC 4.33 x10E12/L Normal 4.00 - 5.20 [facility] Comment on above: Performed By: #### A NEMI ####[address] [id number] REFLEX ADDED, ANEMIA PANEL NONE Normal [facility] Comment on above: Performed By: #### A NEMI ####[facility] [place], [place] [id number] WBC (Bld) [#/Vol] 10.0 10*3/uL Normal 4.4 - 11.3 [facility] Comment on above: Performed By: #### A NEMI ####[facility] [place], [place] [id number] Cult, Urineon 06-13-2021 Bacteria identified Cx Nom (U) [facility]omeo [facility] Work Phone: GC + CHLAMYDIA BY AMPLIFIED DETECTIONon 06-13-2021 Lab Specimen Source Thin Prep-Endocervical Normal [facility] Comment on above: Performed By: #### O SENIOR DATA ARCHITECT #### [facility] [address] [place] [address] GC + Chlamydia By Amplified Detectionon 06-13-2021 C. trachomatis rRNA MCKENZIE+probe Ql (Unsp spec) Negative Negative [facility] [address] [place] Work Phone: Comment on above: The APTIMA Combo 2 a ssay is FDA-approved for Chlamydia trachomatis and Neisseria gonorrhoeae testing on female endocervical and vaginal swabs, ThinPrep liquid pap samples, male urine samples and urethral swabs. Performance characteristics for Chlamydia trachomatis and Neisseria gonorrhoeae testing on specific gam-UTN-spvkqtfk sample types (female urine samples) have been validated by [facility]. This laboratory is certified by CLIA to perform high complexity testing. Samples from all other sites are not validated for this method. N. gonorrhoeae rRNA MCKENZIE+probe Ql (Unsp spec) Negative Negative [facility] [address] [place] Work Phone: Comment on above: SOURCE: Thin Prep-En docervical The APTIMA Combo 2 assay is FDA-approved for Chlamydia trachomatis and Neisseria gonorrhoeae testing on female endocervical and vaginal swabs, ThinPrep liquid pap samples, male urine samples and urethral swabs. Performance characteristics for Chlamydia trachomatis and Neisseria gonorrhoeae testing on specific mrn-DZC-tkjtgpmp sample types (female urine samples) have been validated by [facility]. This laboratory is certified by CLIA to perform high complexity testing. Samples from all other sites are not validated for this method. HEPATITIS B SURFACE AGon HEP.B SURFACE AG Non-Reactive Normal NONREACTIVE [facility] Comment on above: Result Comment: Biot in interference may cause falsely decreased results. Patients taking a Biotin dose of up to 5 mg/day should refrain from taking Biotin for 24 hours before sample collection. Providers may contact their local laboratory for further information. Performed By: #### T +S #### [facility] [address] [place] [address] HEPATITIS C ABon 06-13-2021 HEPATITIS C AB Non-Reactive Normal NONREACTIVE [facility] Comment on above: Result Comment: Resu lts from patients taking biotin supplements or receiving high-dose biotin therapy should be interpreted with caution due to possible interference with this test. Providers may contact their local laboratory for further information. Performed By: #### H CVAB ####[id number] [place] [address] HIV 1/2 ANTIGEN/ANTIBODY SCR EEN WITH REFLEX TO CONFIRMATIONon 06-13-2021 HIV 1/2 AG/AB SCREEN Non-Reactive Normal NONREACTIVE [facility] Comment on above: Result Comment: HIV Ag/Ab screen is performed using the Siemens Atellica HIV Ag/Ab Combo assay which detects the presence of HIV p24 antigen as well as antibodies to HIV-1 (Group M and O) and HIV-2. . No laboratory evidence of HIV infection. If acute HIV infection is suspected, consider testing for HIV RNA by PCR (viral load). Performed By: #### H IV ####[id number] [place] [address] HIV 1+2 Ab Qn (S) Non-Reactive See Below [employer] katy SalesforceRomeo Livingston Work Phone: Comment on above: SOURCE: Reference Ra nge: NONREACTIVE HIV Ag/Ab screen is performed using the Siemens Atellica HIV Ag/Ab Combo assay which detects the presence of HIV p24 antigen as well as antibodies to HIV-1 (Group M and O) and HIV-2..No laboratory evidence of HIV infection. If acute HIV infection is suspected, consider testing for HIV RNA by PCR (viral load). Hemoglobin A1Con 06-13-2021 Glucose [Mass/Vol] 103 mg/dL [facility] Work Phone: HbA1c (Bld) [Mass fraction] 5.2 % [employer] Work Phone: Comment on above: Diagnosis of Diabete s-Adults Non-Diabetic: < or = 5.6% Increased risk for developing diabetes: 5.7-6.4% Diagnostic of diabetes: > or = 6.5%. Monitoring of Diabetes Age (y) Therapeutic Goal (%) Adults: >18 <7.0 Pediatrics: 13-18 <7.5 7-12 <8.0 0- 6 7.5-8.5 [place] [employer]. Diabetes Care 33(S1), Mar 2009. Hepatitis B Surface Antigeno n 06-13-2021 Hepatitis B Surface Antigen Non-Reactive See Below [employer] Work Phone: Comment on above: SOURCE: Reference Ra nge: NONREACTIVE Biotin interference may cause falsely decreased results. Patients taking a Biotin dose of up to 5 mg/day should refrain from taking Biotin for 24 hours before sample collection. Providers may contact their local laboratory for further information. SOURCE: Reference Ra nge: NONREACTIVE Results from patients taking biotin supplements or receiving high-dose biotin therapy should be interpreted with caution due to possible interference with this test. Providers may contact their local laboratory for further information. LMPon 06-13-2021 Fall risk assessment a) No falls within the last year [facility] [address] DO Work Phone: Last menstrual period start date 29Mar2021 [facility] 2420 DO Work Phone: Tobacco use status CPHS b) No [facility] [place] 2420 DO Work Phone: Laboratory - Blood bankon ABO group Nom (Bld) A [employer] Work Phone: Blood group antibody screen Ql Negative [employer]yma [place] Work Phone: Rh immune globulin screen (Bld) [Interp] Positive FaceAlerta celena [place] Work Phone: Laboratory - Cytologyon -0 Cytology report Cyto stain.thin prep Doc (Cvx/Vag) Date of Procedure: 06/13/2021 Pathologist: [facility], Cytology Date Reported: 06/24/2021 Date Received: 06/13/2021 Submitting Physician: TOM BULL CNM FINAL CYTOL [facility] [place] [place] [address] [place] Work Phone: Laboratory - Hematology and Cell countson 06-13-2021 Erythrocyte distribution width (RBC) [Ratio] 13.7 % See Below [employer] Rossiter Work Phone: Comment on above: Reference Range: 11. 5 - 14.5 Hematocrit (Bld) [Volume fraction] 38.2 % See Below [employer] Work Phone: Comment on above: Reference Range: 36. 0 - 46.0 Hemoglobin (Bld) [Mass/Vol] 11.8 g/dL below low threshold See Below Texan Hostinger Work Phone: Comment on above: Reference Range: 12. 0 - 16.0 MCHC (RBC) [Mass/Vol] 30.9 g/dL below low threshold See Below [employer] Rossiter Work Phone: Comment on above: Reference Range: 32. 0 - 36.0 MCV (RBC) [Entitic vol] 88 fL 80 - 100 [employer] Rossiter Work Phone: Platelets (Bld) [#/Vol] 347 10*3/uL 150 - 450 [employer] Work Phone: RBC (Bld) [#/Vol] 4.33 {x10E12/L} See Below [facility] Work Phone: Comment on above: Reference Range: 4.0 0 - 5.20 WBC (Bld) [#/Vol] 10.0 10*3/uL 4.4 - 11.3 [facility] -[employer] Work Phone: No Panel Informationon 06-13 NONE [facility] Work Phone: SEE COMMENT [facility] [address] [place] Work Phone: Comment on above: Normal 2.6 % [facility] [address] [place] Work Phone: Comment on above: HGB A2 values may be falsely elevated in the presence of HGB S. 0.4 % [facility] [address] [place] Work Phone: 97.0 % [facility] [address] [place] Work Phone: Never [facility] [place] 2420 DO Work Phone: [phone] Not depressed [facility] [place] 2420 DO Work Phone: [phone] [facility] [place] 2420 DO Work Phone: [phone] Comment on above: Q1: As much as I alw ays couldQ2: As much as I ever didQ3: Not very oftenQ4: Yes, sometimesQ5: No, not muchQ6: No, I have been coping as well as everQ7: No, not at allQ8: No, not all allQ9: No, [id number]: Never Path Review-HGB Identificati onon 06-13-2021 Path Review-HGB Identification DESTINY [facility] [address] [place] Work Phone: Comment on above: By her/his signature above, the Pathologist listed as making the final interpretation certifies that she/he has personally reviewed this case. RUBELLA IGG ABon 06-13-2021 RUBELLA IGG AB Equivocal Normal [facility] Comment on above: Result Comment: INTE RPRETATIVE COMMENT NEGATIVE: No IgG antibodies specific to Rubella detected. It is likely that the patient has not had a previous exposure to Rubella through infection or vaccination. Alternatively, the patient may have been exposed to Rubella but a failure to respond may indicate immunodeficiency. EQUIVOCAL:Equivocal results; obtain additional sample for retesting. POSITIVE: IgG antibody to Rubella detected. This may indicate that the patient was exposed to Rubella through infection or vaccination. The interpretation of serological tests should take into account the immunological status of the patient. Test results for patients, including immunocompromised patients, neonates, and pediatric patients, reflect their capacity to respond immunologically to the virus as well as their exposure to the pathogen. Patients treated with IVIG may demonstrate altered results in serological assays. Performed By: #### O SENIOR DATA ARCHITECT #### [facility] [address] [place] [address] Rubella IgG Antibodyon 06-13 Rubella virus IgG IA Ql [employer] -Gardiner Rossiter Work Phone: Comment on above: INTERPRETATIVE COMME NT NEGATIVE: No IgG antibodies specific to Rubella detected. It is likely that the patient has not had a previous exposure to Rubella through infection or vaccination. Alternatively, the patient may have been exposed to Rubella but a failure to respond may indicate immunodeficiency. EQUIVOCAL:Equivocal results; obtain additional sample for retesting. POSITIVE: IgG antibody to Rubella detected. This may indicate that the patient was exposed to Rubella through infection or vaccination.The interpretation of serological tests should take into accountthe immunological status of the patient. Test results forpatients, including immunocompromised patients, neonates, andpediatric patients, reflect their capacity to respondimmunologically to the virus as well as their exposure to thepathogen. Patients treated with IVIG may demonstrate alteredresults in serological assays. SYPHILIS SCREENING WITH REFL EXon 06-13-2021 SYPHILIS TOTAL AB Non-Reactive Normal NONREACTIVE [facility] Comment on above: Result Comment: No s ignificant level of Treponema pallidum antibody detected. Repeat testing in 2 to 4 weeks may be considered if early infection or incubating syphilis infection is suspected. Performed By: #### S YPHR #### [facility] [id number] [place], [place] [id number] Lab Specimen Source Normal [facility] Comment on above: Performed By: #### S YPHR #### [facility] [address] [place], [place] [id number] Performed By: #### H IV ####[id number] [place] [address] Performed By: #### H CVAB ####[id number] [place] [address] Performed By: #### T +S #### [facility] [address] [place] [address] T. pallidum IgG+IgM IA Ql (S) Non-Reactive See Below [employer] Work Phone: Comment on above: SOURCE: Reference Ra nge: NONREACTIVENo significant level of Treponema pallidum antibody detected. Repeat testing in 2 to 4 weeks may be considered if early infection or incubating syphilis infection is suspected. TYPE + SCREENon 06-13-2021 ABO TYPE A Normal [facility] Comment on above: Performed By: #### T +S #### [facility] [address] [place] [address] RH TYPE Positive Normal [facility] Comment on above: Performed By: #### T +S #### [facility] [address] [place] [address] URINE CULTURE,BACTERIALon URINE CULTURE,BACTERIAL PATIENT: SHU ROY [place] [facility] [id number] : 86 AGE: SEX: F ORDERED BY: TOM BULL SOURCE: URINE COLLECTED: 06/13/21 00:00 ANTIBIOTICS AT MELISSA.: RECEIVED : 06/13/21 16:41 SITE: Unspecified R E S U L T S URINE CULTURE,BACTERIAL FINAL 06/14/21 10:39 NO SIGNIFICANT GROWTH. Normal [facility] Comment on above: Performed By: #### O SENIOR DATA ARCHITECT #### [facility] [address] [place] [address] No Panel Informationon 06-04 Normal [facility] [address] [place] Work Phone: OB Complete Scan 1st Trimest john 06-04-2021 OB Complete Scan 1st Trimester Indication ======== Class 3 Obesity (BMI > 40). Confirm Gestational Age , Polycystic Ovarian Disease History ====== General History Height 157 cm Height (ft) 5 ft Height (in) 2 in Previous Outcomes 1 Maternal Assessment Height 157 cm Height (ft) 5 ft Height (in) 2 in Weight 107 kg Weight (lb) 235 lb Weight gain 0 kg Weight gain (lb) 0 lb BMI 42.98 kg/m? Physical Exam Initial weight (lb) 235 lb ========= Kumar . Number of embryos: 1 Dating ====== LMP on: 03/29/2021 Cycle: Very certain LMP GA by LMP 9 w + 4 d SLIME by LMP: 01/03/2022 Ultrasound examination on: 06/04/2021 GA by U/S based upon: CRL GA by U/S 8 w + 5 d SLIME by U/S: 01/09/2022 Assigned: based on ultrasound (CRL), selected on 06/04/2021 Assigned GA 8 w + 5 d Assigned SLIME: 01/09/2022 Impression ========= Hx of PCOS. BMI 43. - Kumar in utero gestation containing yolk sac and pole - The crown rump length is NOT consistent with the menstrual dating - The estimated date of delivery was reassigned based on today's study - Normal appearing adnexa The patient was informed of the above information Thank you for allowing us to participate in the care of your patient Follow-up ======== A repeat evaluation has been scheduled at 12 weeks. Assessment Gestational sac: visualized Location: intrauterine Yolk sac: visualized YS 2.9 mm -/- <1% Papaioannou Embryo: visualized CRL 21.7 mm 8w 5d 57% Pexsters Cardiac activity: present FHR 176 bpm Placenta: Too early to evaluate Maternal Structures Uterus / Cervix Uterus: Visualized Uterus position: anteverted Ovaries / Tubes / Adnexa Rt ovary: Visualized Rt ovary D1 29.6 mm Rt ovary D2 28.8 mm Rt ovary D3 19.6 mm Rt ovary Vol 8.7 cm? Lt ovary: Visualized Lt ovary D1 30.3 mm Lt ovary D2 34.1 mm Lt ovary D3 27.9 mm Lt ovary Vol 15.1 cm? Cul de Sac / Bladder / Kidneys / Other Cul de Sac: Visualized Free fluid: No free fluid visualized Method ====== Transabdominal and transvaginal ultrasound examination. View: Sufficient Electronically signed by: JANINE BOWMAN MD Normal [facility] HCG,BETA-QUANTITATIVEon 04-09 HCG,BETA-QUANTITATIVE 79 mIU/mL Abnormal [facility] Comment on above: Result Comment: Low- level positive HCG results can be seen in early , in karla- or post-menopausal females due to normal pituitary HCG production, or with analytic interference. Repeat testing in 48-72 hours can aid in assessing for as results should double in this time period. FSH measurement is recommended in karla- or post-menopausal females as concurrent elevation of FSH can support pituitary production as the source of the HCG elevation. . Total HCG measurement is performed using the Elias Sarvaanan Access Immunoassay which detects intact HCG and free beta HCG subunit. This test is not indicated for use as a tumor marker. HCG testing is performed using a different test methodology at [facility] than other [facility]. Direct result comparison should only be made within the same method. REF VALUES NON FEMALE <5 MALES <5 Performed By: #### [facility] [place] ####[facility] [place], [place] [id number] Office Visit (Family Medicin e)on 05-01-2021 Follow-up visit Diagnoses/Problems Missed menses (626.4) (N92.6) Morbid obesity (278.01) (E66.01) Body mass index (BMI) of 45.0-49.9 in adult (V85.42) (Z68.42) Vaginal candidiasis (112.1) (B37.3) Orders Depression Renew: Escitalopram Oxalate 10 MG Oral Tablet; TAKE 1 TABLET DAILY GERD (gastroesophageal reflux disease) Start: Dexilant 60 MG Oral Capsule Delayed Release (Dexlansoprazole); TAKE ONE CAPSULE BY MOUTH DAILY Missed menses HCG, Beta Quantitative; Status:Active - Retrospective Authorization; Requested for:[id number]; PCOS (polycystic ovarian syndrome) Start: metFORMIN HCl ER 750 MG Oral Tablet Extended Release 24 Hour; TAKE TWO TABLETS BY MOUTH ONCE DAILY WITH THE EVENING MEAL Vaginal candidiasis Start: Clotrimazole 3 2 % Vaginal Cream; INSERT 1 APPLICATORFUL INTRAVAGINALLY AT BEDTIME NIGHTLY Patient Discussion/Summary By signing my name below, I, RAHAT Chin Scribe, attest that this documentation has been prepared under the direction and in the presence of Celio Zhou DO. All medical record entries made by the Scribe were at my direction and personally dictated by me. I have reviewed the chart and agree that the record accurately reflects my personal performance of the history, physical exam, discussion and plan. -In a face to face session, I informed patient of their BMI>30. This patient was advised the importance of proper diet and nutrition in addition to adequate hydration. This patient was encouraged to partake in a moderate exercise program to include 30 minutes daily for 5 days or 150 minutes weekly. Discussed risks of CAD and DM with obesity. This patient will follow up with us as scheduled. -Continue current medications and therapy for chronic medical conditions. -blood work today. -decrease escitalopram to 10mg. -tums suggested for GERD -DC dexilant, metformin, and trazodone -start clotrimazole Chief Complaint 1) Pt presents today stating she took a test 04/30/21 and it was positive. She states she thinks she has a yeast infection, she states it is itchy. Adult Risk Screening Depression/Suicide Screening: During the past 2 weeks, the patient has not felt down, depressed or hopeless. During the past 2 weeks, the patient has not felt little interest or pleasure in doing things. History of Present Illness 1) Pt presents today stating she took a test 04/30/21 and it was positive. She states she thinks she has a yeast infection, she states it is itchy. Review of Systems ROS Except positives as noted in the CC AND HPI Constitutional: Denies fevers, chills, night sweats, fatigue, weight changes, change in appetite Eyes: Denies blurry vision, double vision ENT: Denies otalgia, trouble hearing, tinnitus, vertigo, nasal congestion, rhinorrhea, sore throat Neck: Denies swelling, masses Cardiovascular: Denies chest pain, palpitations, edema, orthopnea, syncope Respiratory: Denies dyspnea, cough, wheezing, postural nocturnal dyspnea Gastrointestinal: Denies abdominal pain, nausea, vomiting, diarrhea, constipation, melena, hematochezia Genitourinary: Denies dysuria, hematuria, frequency, urgency Musculoskeletal: Denies back pain, neck pain, arthralgias, myalgias Integumentary: Denies skin lesions, rashes, masses Neurological: Denies dizziness, headaches, confusion, limb weakness, paresthesias, syncope, convulsions Psychiatric: Denies depression, anxiety, homicidal ideations, suicidal ideations, sleep disturbances Endocrine: Denies polyphagia, polydipsia, polyuria, weakness, hair thinning, heat intolerance, cold intolerance, weight changes Heme/Lymph: Denies easy bruising, easy bleeding, swollen glands Active Problems Body aches (780.96) (R52) Contraception management (V25.9) (Z30.9) Cystic acne (706.1) (L70.0) Depression (311) (F32.A) Encounter for preconception consultation (V26.49) (Z31.69) Encounter for vitamin deficiency screening (V77.99) (Z13.21) Female hirsutism (704.1) (L68.0) Female infertility (628.9) (N97.9) Fertility testing (V26.21) (Z31.41) Fever (780.60) (R50.9) Flu-like symptoms (780.99) (R68.89) GERD (gastroesophageal reflux disease) (530.81) (K21.9) Infertility Insomnia (780.52) (G47.00) Marital disruption involving divorce (V61.03) (Z63.5) Oligomenorrhea (626.1) (N91.5) PCOS (polycystic ovarian syndrome) (256.4) (E28.2) Plantar fasciitis (728.71) (M72.2) Refraction error (367.9) (H52.7) Screening for STDs (sexually transmitted diseases) (V74.5) (Z11.3) Weight gain (783.1) (R63.5) Past Medical History History of Abnormal Papanicolaou smear of cervix with positive human papilloma virus (HPV) test (795.09,079.4) (R87.618) History of Cervical cancer screening (V76.2) (Z12.4) Resolved Date: 28 Jan 2019 History of Class 3 severe obesity due to excess calories with body mass index (BMI) of 40.0 to 44.9 in adult (278.01,V85.41) (E66.01,Z68.41) History of Depression with anxiety (300.4) (F41.8) History o (more content not included)... Normal [facility] Tobacco Screening.on 022 Fall risk assessment a) No falls within the last year -[facility] Work Phone: Tobacco use status CPHS b) No -[facility] Work Phone: Blood Pressure Cuff Sizeon 1 Blood Pressure Cuff Size Adult -[facility] Work Phone: Tobacco Screening.on 021 Last menstrual period start date [id number] -[facility] Work Phone: Tobacco Screening. b) No -[facility] Work Phone: Tobacco Screening.on 021 Last menstrual period start date [id number] -[facility] Work Phone: Tobacco Screening. b) No -[facility] Work Phone: Estradiol, Serumon 1 E2 [Mass/Vol] 169 pg/mL [facility] sman 310 [facility] Work Phone: Comment on above: Estradiol measuremen t is performed using the Elias SnapShop Access Sensitive Estradiol Immunoassay. Estradiol testing is performed using a different test methodology at [facility] than other [facility]. Direct result comparison should only be made within the same method.REF VALUESEARLY FOLLICULAR 22-115MID FOLLICULAR 25-115OVULATORY PEAK 32-517MID LUTEAL 37-246POSTMENOPAUSE <15- 25MALE <15- 32 Luteinizing Hormone, Serumon 03-13-2020 Lutropin Qn 25.2 {IU/L} [facility] Work Phone: Comment on above: Luteinizing Hormone [LH] is performed using the Elias Jeanerette Access Immunoassay. LH testing is performed using a different test methodology at [facility] than other [facility]. Direct result comparison should only be made within the same method.REF VALUESFOLLICULAR PHASE 1.5-10.0MID-CYCLE 13.0-72.0LUTEAL PHASE 0.5-13.0MENOPAUSE 15.0-65.0PREPUBERTY 0- 3.0CHILDREN 0- 6.0ADULT MALE 1.0- 9.0 Otheron 01-16-2020 Please click on the link to view the study images Normal [facility] Work Phone: Lipid Panelon 12-15-2019 Cholesterol [Mass/Vol] 148 mg/dL 0 - 199 [facility] Work Phone: Comment on above: . AGE DESIRABLE BORD JYOTI HIGH HIGH 0-19 Y 0 - 169 170 - 199 >/= 200 20-24 Y 0 - 189 190 - 224 >/= 225 >24 Y 0 - 199 200 - 239 >/= 240 All ranges are based on fasting samples. Specific therapeutic targets will vary based on patient-specific cardiac risk.. Pediatric guidelines reference:Pediatrics 2011, 128(S5). Adult guidelines reference: NCEP ATPIII Guidelines, CRISTA 2001, 258:2486-97. Venipuncture immediately after or during the administration of Metamizole may lead to falsely low results. Testing should be performed immediately prior to Metamizole dosing. Cholesterol in HDL [Mass/Vol] 44.0 mg/dL [facility] Work Phone: Comment on above: . AGE VERY LOW LOW N ORMAL HIGH 0-19 Y < 35 < 40 40-45 ---- 20-24 Y ---- < 40 >45 ---- >24 Y ---- < 40 40-60 >60. Cholesterol in LDL [Mass/Vol] 74 mg/dL 0 - 99 [facility] Work Phone: Comment on above: . NEAR BORD AGE VIDAL RABLE OPTIMAL HIGH HIGH VERY HIGH 0-19 Y 0 - 109 --- 110-129 >/= 130 ---- 20-24 Y 0 - 119 --- 120-159 >/= 160 ---- >24 Y 0 - 99 100-129 130-159 160-189 >/=190. Cholesterol.total/Chol esterol in HDL [Mass ratio] 3.4 {ratio} [facility] Work Phone: Comment on above: REF VALUESDESIRABLE < 3.4HIGH RISK > 5.0 Triglyceride [Mass/Vol] 152 mg/dL above high threshold 0 - 149 [facility] Work Phone: Comment on above: . AGE DESIRABLE BORD JYOTI HIGH HIGH VERY HIGH 0 D-90 D 19 - 174 ---- ---- ----91 D- 9 Y 0 - 74 75 - 99 >/= 100 ---- 10-19 Y 0 - 89 90 - 129 >/= 130 ---- 20-24 Y 0 - 114 115 - 149 >/= 150 ---- >24 Y 0 - 149 150 - 199 200- 499 >/= 500. Venipuncture immediately after or during the administration of Metamizole may lead to falsely low results. Testing should be performed immediately prior to Metamizole dosing. Lipid Panel 30 mg/dL 0 - 40 [facility] Work Phone: PROGESTERONEon 06-30-2019 PROGESTERONE <0.3 Normal [facility] Comment on above: Result Comment: Note new reference range as of 05/09/2019. REF VALUES MALE <0.3- 1.2 FOLLICULAR PHASE <0.3- 1.4 LUTEAL PHASE 3.3-25.6 MID-LUTEAL PHASE 4.4-28.0 POSTMENOPAUSAL <0.3- 0.7 FEMALES: 1ST TRIMESTER 11.2- 90.0 2ND TRIMESTER 25.6- 89.4 3RD TRIMESTER 48.4-422.5 . Patients receiving DHEA-S supplements may show false elevation of progesterone for results near 1.0 ng/mL. Contact laboratory at [phone] if alternative testing is needed. Performed By: #### P YARELI #### [facility] [address] [place] [address] Progesterone, Serumon 2019 Progesterone [Mass/Vol] ng/mL [facility] Work Phone: Comment on above: Note new reference r lula as of 05/09/2019.REF VALUESMALE <0.3- 1.2 FOLLICULAR PHASE <0.3- 1.4 LUTEAL PHASE 3.3-25.6 MID-LUTEAL PHASE 4.4-28.0POSTMENOPAUSAL <0.3- 0.7 FEMALES: 1ST TRIMESTER 11.2- 90.0 2ND TRIMESTER 25.6- 89.4 3RD TRIMESTER 48.4-422.5 .Patients receiving DHEA-S supplements may show false elevation ofprogesterone for results near 1.0 ng/mL. Contact laboratory [phone] if alternative testing is needed. Vital Signs Date Time Vital Sign Value Performing Clinician Facility 10-30-2024 13:49-0400 Body height 157.[address] Tawana Timmons MD Work Phone: [facility] 10-30-2024 13:49-0400 Body mass index (BMI) [Ratio] 49.1 kg/m2 Dr. Tawana Timmnos MD Work Phone: [facility] 10-30-2024 13:49-0400 Body weight 121.[address] Tawana Timmons MD Work Phone: [facility] 10-30-2024 13:49-0400 Diastolic blood pressure 83 mm[Hg] Dr. Tawana Timmons MD Work Phone: [facility] 10-30-2024 13:49-0400 Systolic blood pressure 120 mm[Hg] Dr. Tawana Timmons MD Work Phone: [facility] 10-02-2024 09:42-0400 Body height 157.48 cm Carmen Perdomo CNM Work Phone: [facility] 10-02-2024 09:42-0400 Body mass index (BMI) [Ratio] 48.5 kg/m2 Carmen Perdomo CNM Work Phone: [facility] 10-02-2024 09:42-0400 Body weight 120.37 kg Carmen Perdomo CNM Work Phone: [facility] 10-02-2024 09:42-0400 Diastolic blood pressure 83 mm[Hg] Carmen Perdomo CNM Work Phone: [facility] 10-02-2024 09:42-0400 Systolic blood pressure 124 mm[Hg] Carmen Perdomo CNM Work Phone: [facility] 09-01-2024 14:59-0400 Body height 157.48 cm Carmen Perdomo CNM Work Phone: [facility] 09-01-2024 14:57-0400 Body mass index (BMI) [Ratio] 47.4 kg/m2 Carmen Perdomo CNM Work Phone: [facility] 09-01-2024 14:57-0400 Body weight 117.53 kg Carmen Perdomo CNM Work Phone: [facility] 09-01-2024 14:57-0400 Diastolic blood pressure 86 mm[Hg] Carmen SHAYM Work Phone: [facility] 09-01-2024 14:57-0400 Systolic blood pressure 119 mm[Hg] Carmen Perdomo CNM Work Phone: [facility] 08-02-2024 11:04-0400 Body height 157.48 cm Carmen Perdomo CNM Work Phone: [facility] 08-02-2024 11:02-0400 Body mass index (BMI) [Ratio] 48.6 kg/m2 Carmen Perdomo CNM Work Phone: [facility] 08-02-2024 11:02-0400 Body weight 120.65 kg Carmen Perdomo CNM Work Phone: [facility] 08-02-2024 11:02-0400 Diastolic blood pressure 75 mm[Hg] Carmen Perdomo CNM Work Phone: [facility] 08-02-2024 11:02-0400 Systolic blood pressure 118 mm[Hg] Carmen Perdomo CNM Work Phone: [facility] 07-06-2024 15:06-0400 Body height 157.48 cm Carmen Perdomo CNM Work Phone: [facility] 07-06-2024 15:06-0400 Body mass index (BMI) [Ratio] 46 kg/m2 Carmen Perdomo CNM Work Phone: [facility] 07-06-2024 15:06-0400 Body weight 114.07 kg Carmen Perdomo CNM Work Phone: [facility] 07-06-2024 15:06-0400 Diastolic blood pressure 85 mm[Hg] Carmen Perdomo CNM Work Phone: [facility] 07-06-2024 15:06-0400 Systolic blood pressure 123 mm[Hg] Carmen Perdomo CNM Work Phone: [facility] 06-09-2024 13:11-0400 Body height 157.48 cm Carmen Perdomo CNM Work Phone: [facility] 06-09-2024 13:11-0400 Body mass index (BMI) [Ratio] 46.5 kg/m2 Carmen Perdomo CNM Work Phone: [facility] 06-09-2024 13:11-0400 Body weight 115.43 kg Carmen Perdomo CNM Work Phone: [facility] 06-09-2024 13:11-0400 Diastolic blood pressure 80 mm[Hg] Carmen Perdomo CNM Work Phone: [facility] 06-09-2024 13:11-0400 Systolic blood pressure 125 mm[Hg] Carmen Perdomo CNM Work Phone: [facility] 05-03-2024 12:07-0500 Body height 157.48 cm Carmen Perdomo CNM Work Phone: [facility] 05-03-2024 12:05-0500 Body mass index (BMI) [Ratio] 45.3 kg/m2 Carmen Perdomo CNM Work Phone: [facility] 05-03-2024 12:05-0500 Body weight 112.49 kg Carmen Perdomo CNM Work Phone: [facility] 05-03-2024 12:05-0500 Diastolic blood pressure 66 mm[Hg] Carmen Perdomo CNM Work Phone: [facility] 05-03-2024 12:05-0500 Systolic blood pressure 99 mm[Hg] Carmen Perdomo CNM Work Phone: [facility] 08-05-2023 22:09-0400 Diastolic Blood Pressure Non-Invasive 78 mm[Hg] JOSEPH SANTIAGOKA DO [facility] 08-05-2023 22:09-0400 Heart rate 96 /min JOSEPH DEL CID DO [facility] 08-05-2023 22:09-0400 Respiratory rate 16 /min JOSEPH SANTIAGOKA DO [facility] 08-05-2023 22:09-0400 Systolic Blood Pressure Non-Invasive 150 mm[Hg] JOSEPH SANTIAGOKA DO [facility] 08-05-2023 17:08-0400 Diastolic Blood Pressure Non-Invasive 108 mm[Hg] JOSEPH SANTIAGOKA DO [facility] 08-05-2023 17:08-0400 Heart rate 98 /min JOSEPH DURESKA DO [facility] 08-05-2023 17:08-0400 Respiratory rate 16 /min JOSEPH DURESKA DO [facility] 08-05-2023 17:08-0400 Systolic Blood Pressure Non-Invasive 154 mm[Hg] JOSEPH DURESKA DO [facility] 08-05-2023 15:50-0400 Body temperature 98.6 [degF] JOSEPH DURESKA DO [facility] 08-05-2023 15:50-0400 Body weight 100 kg JOSEPH DURESKA DO [facility] 08-05-2023 15:50-0400 Diastolic Blood Pressure Non-Invasive 82 mm[Hg] JOSEPH DURESKA DO [facility] 08-05-2023 15:50-0400 Heart rate 102 /min JOSEPH DURESKA DO [facility] 08-05-2023 15:50-0400 Respiratory rate 20 /min JOSEPH DURESKA DO [facility] 08-05-2023 15:50-0400 Systolic Blood Pressure Non-Invasive 170 mm[Hg] JOSEPH DURESKA DO [facility] 02-04-2022 14:40-0500 Body height 157.48 cm Celio Zhou Work Phone: HO-GIOSS-Zxhyzwnk 7963 DO Work Phone: 02-04-2022 14:40-0500 Body mass index (BMI) [Ratio] 44.26 kg/m2 Celio Zhou Work Phone: EB-NTUTI-Lvvnmqas 2420 DO Work Phone: 02-04-2022 14:40-0500 Body surface area Derived from formula 2.07 m2 Celio Zhou Work Phone: WP-HPOTF-Muvraasj 2420 DO Work Phone: 02-04-2022 14:40-0500 Body weight 109.77 kg Celio Zhou Work Phone: WU-FXBIB-Wopflvek 2420 DO Work Phone: 02-04-2022 14:40-0500 Diastolic blood pressure 84 mm[Hg] Celio Zhou Work Phone: NM-RHCJO-Wsqeuram 2420 DO Work Phone: 02-04-2022 14:40-0500 Systolic blood pressure 120 mm[Hg] Celio Zhou Work Phone: JH-MNFSZ-Vpjygeyw 2420 DO Work Phone: 02-04-2022 14:40-0500 0 1 Celio Zhou Work Phone: ZQ-SLJDO-Gootztah 2420 DO Work Phone: Comment on above: [employer] 01-19-2022 14:09-0500 Diastolic blood pressure 83 mm[Hg] Celio Zhou Work Phone: HC-TWDTQ-HZO [address] [place] Work Phone: 01-19-2022 14:09-0500 Systolic blood pressure 128 mm[Hg] Celio Zhou Work Phone: ZH-JKARQ-ZIP [address] [place] Work Phone: 01-15-2022 15:07-0500 Body height 157.48 cm Celio Zhou Work Phone: CS-EWYVQ-Yapgqwv 2nd Fl Work Phone: 01-15-2022 15:07-0500 Diastolic blood pressure 88 mm[Hg] Celio Ledesmas Work Phone: LN-SSSOP-Vvxzzmh [facility] Work Phone: 01-15-2022 15:07-0500 Systolic blood pressure 128 mm[Hg] Celio Rosasolas Work Phone: MM-ISOGO-Ualzncm [facility] Work Phone: 01-11-2022 14:24-0500 Diastolic blood pressure 97 mm[Hg] [facility] Work Phone: 01-11-2022 14:24-0500 Heart rate 85 /min [facility] Work Phone: 01-11-2022 14:24-0500 Systolic blood pressure 131 mm[Hg] [facility] Work Phone: 01-11-2022 12:46-0500 Body height 157.48 cm [facility] Work Phone: 01-11-2022 12:46-0500 Body mass index (BMI) [Ratio] 45.8 kg/m2 [facility] Work Phone: 01-11-2022 12:46-0500 Body weight 113.85 kg [facility] Work Phone: 01-07-2022 13:18-0400 Body temperature 97.88 [degF] Celio Zhou Other Phone: [facility] 01-07-2022 13:18-0400 Diastolic blood pressure 80 mm[Hg] Celio Ledesmas Other Phone: [facility] 01-07-2022 13:18-0400 Heart rate 96 /min Celio Alinas Other Phone: [facility] 01-07-2022 13:18-0400 Respiratory rate 20 /min Celio Aniaolas Other Phone: [facility] 01-07-2022 13:18-0400 SaO2% (BldA) [Mass fraction] 97 % Celio Zhou Other Phone: [facility] 01-07-2022 13:18-0400 Systolic blood pressure 123 mm[Hg] Celio Zhou Other Phone: [facility] 12-31-2021 14:39-0400 Body height 157.48 cm Celio Zhou Work Phone: [id number] 1200 [place] Work Phone: 12-31-2021 14:39-0400 Body mass index (BMI) [Ratio] 49.02 kg/m2 Celio Zhou Work Phone: KS-FNCZJ-MGK 1200 [place] Work Phone: 12-31-2021 14:39-0400 Body surface area Derived from formula 2.16 m2 Celio Zhou Work Phone: SO-ZOKWT-ACJ 1200 [place] Work Phone: 12-31-2021 14:39-0400 Body weight 121.56 kg Celio Zhou Work Phone: ZL-WQLWD-GHH 1200 [place] Work Phone: 12-31-2021 14:39-0400 Diastolic blood pressure 80 mm[Hg] Celio Ledesmas Work Phone: PD-GNAXQ-CFF 1200 [place] Work Phone: 12-31-2021 14:39-0400 Systolic blood pressure 124 mm[Hg] Celio Ledesmas Work Phone: NK-UXENN-AUF 1200 [place] Work Phone: 12-24-2021 15:32-0400 Body height 157.48 cm Celio Zhou Work Phone: JG-OHPJN-Xzynoeji 2420 DO Work Phone: 12-24-2021 15:32-0400 Body mass index (BMI) [Ratio] 48.84 kg/m2 Celio Zhou Work Phone: BC-EVYNX-Hvuuplzz 2420 DO Work Phone: 12-24-2021 15:32-0400 Body surface area Derived from formula 2.16 m2 Celio Zhou Work Phone: TY-KXKRM-Hvktejaa 2420 DO Work Phone: 12-24-2021 15:32-0400 Body weight 121.11 kg Celio Zhou Work Phone: AN-EMUTV-Phorlxzz 2420 DO Work Phone: 12-24-2021 15:32-0400 Diastolic blood pressure 68 mm[Hg] Celio Zhou Work Phone: YE-QVRNU-Hmyrnnry 2420 DO Work Phone: 12-24-2021 15:32-0400 Systolic blood pressure 128 mm[Hg] Celio Zhou Work Phone: IJ-XABXS-Cmyrgiee 2420 DO Work Phone: 12-17-2021 13:52-0400 Body height 157.48 cm Celio Zhou Work Phone: RJ-CCXWZ-SPP 1200 [place] Work Phone: 12-17-2021 13:52-0400 Body mass index (BMI) [Ratio] 48.93 kg/m2 Celio Zhou Work Phone: MW-QTUNS-QXV 1200 [place] Work Phone: 12-17-2021 13:52-0400 Body surface area Derived from formula 2.16 m2 Celio Zhou Work Phone: GO-JQOCF-IZJ 1200 [place] Work Phone: 12-17-2021 13:52-0400 Body weight 121.34 kg Celio Zhou Work Phone: NG-XXIPW-XLZ 1200 [place] Work Phone: 12-17-2021 13:52-0400 Diastolic blood pressure 80 mm[Hg] Celio Zhou Work Phone: XG-CIJJN-HTL 1200 [place] Work Phone: 12-17-2021 13:52-0400 Systolic blood pressure 110 mm[Hg] Celio Zhou Work Phone: TC-POTAV-IQW 1200 [place] Work Phone: 12-12-2021 15:39-0400 Body height 157.48 cm Celio Zhou Work Phone: YT-GVITO-WYQ 1200 [place] Work Phone: 12-12-2021 15:39-0400 Body mass index (BMI) [Ratio] 48.65 kg/m2 Celio Zhou Work Phone: OD-YMBEW-KQG 1200 [place] Work Phone: 12-12-2021 15:39-0400 Body surface area Derived from formula 2.16 m2 Celio Zhou Work Phone: KL-HMPPZ-YJM 1200 [place] Work Phone: 12-12-2021 15:39-0400 Body weight 120.66 kg Celio Zhou Work Phone: RS-TLWMR-HNX 1200 [place] Work Phone: 12-12-2021 15:39-0400 Diastolic blood pressure 72 mm[Hg] Celio Zhou Work Phone: TS-FUREN-GSE 1200 [place] Work Phone: 12-12-2021 15:39-0400 Systolic blood pressure 112 mm[Hg] Celio Zhou Work Phone: OL-APSLM-KRR 1200 [place] Work Phone: 10-03-2021 14:50-0400 Body height 157.48 cm Celio Ledesmas Work Phone: NG-XKXEV-CEC 1200 [place] Work Phone: 10-03-2021 14:50-0400 Body mass index (BMI) [Ratio] 46.46 kg/m2 Celio Ledesmas Work Phone: MC-VOQZO-ECB 1200 [place] Work Phone: 10-03-2021 14:50-0400 Body surface area Derived from formula 2.12 m2 Celio Ledesmas Work Phone: OO-NVGIL-RLX 1200 [place] Work Phone: 10-03-2021 14:50-0400 Body weight 115.21 kg Celio Ledesmas Work Phone: ZW-NGSYE-MWF 1200 [place] Work Phone: 10-03-2021 14:50-0400 Diastolic blood pressure 70 mm[Hg] Celio Ledesmas Work Phone: UM-SSUOU-SYI 1200 [place] Work Phone: 10-03-2021 14:50-0400 Systolic blood pressure 118 mm[Hg] Celio Ledesmas Work Phone: LE-CHIZX-IWT 1200 [place] Work Phone: 09-11-2021 11:20-0400 Body height 157.48 cm Celio Ledesmas Work Phone: WJ-AUPSG-Yttaqgjm 2420 DO Work Phone: 09-11-2021 11:20-0400 Body mass index (BMI) [Ratio] 44.81 kg/m2 Celio Ledesmas Work Phone: OF-EILFI-Ctqftvuu 2420 DO Work Phone: 09-11-2021 11:20-0400 Body surface area Derived from formula 2.08 m2 Celio Zhou Work Phone: KX-DJLDO-Baruoioz 2420 DO Work Phone: 09-11-2021 11:20-0400 Body weight 111.13 kg Celio Zhou Work Phone: NN-QBEXQ-Vedmipso 2420 DO Work Phone: 09-11-2021 11:20-0400 Diastolic blood pressure 70 mm[Hg] Celio Zhou Work Phone: CQ-OBLVT-Ptyqfubt 2420 DO Work Phone: 09-11-2021 11:20-0400 Systolic blood pressure 110 mm[Hg] Celio Zhou Work Phone: QE-NLSIM-Vbtnymyf 2420 DO Work Phone: 09-11-2021 11:20-0400 0 1 Celio Zhou Work Phone: YN-XWLKT-Xiuhrqpe 2420 DO Work Phone: Comment on above: [employer] 08-07-2021 11:11-0400 Body height 157.48 cm Celio Zhou Work Phone: VD-JJIUL-Svmozfoe 2420 DO Work Phone: 08-07-2021 11:11-0400 Body mass index (BMI) [Ratio] 43.71 kg/m2 Celio Zhou Work Phone: OG-RHUFN-Hedtqodi 2420 DO Work Phone: 08-07-2021 11:11-0400 Body surface area Derived from formula 2.06 m2 Celio Zhou Work Phone: AW-ZOIPE-Ppdrqnes 2420 DO Work Phone: 08-07-2021 11:11-0400 Body weight 108.41 kg Celio Zhou Work Phone: MR-FIWHN-Dahuzpuy 2420 DO Work Phone: 08-07-2021 11:11-0400 Diastolic blood pressure 64 mm[Hg] Celio Zhou Work Phone: PG-SJWFM-Rjepqkli 2420 DO Work Phone: 08-07-2021 11:11-0400 Systolic blood pressure 116 mm[Hg] Celio Zhou Work Phone: HF-IUVDO-Dyoeyrlz 2420 DO Work Phone: 07-11-2021 16:14-0400 Body height 157.48 cm Celio Zhou Work Phone: XD-OJOZC-Ltmjmftr 2420 DO Work Phone: 07-11-2021 16:14-0400 Body mass index (BMI) [Ratio] 43.53 kg/m2 Celio Zhou Work Phone: XD-VDHIA-Zidvbxtg 2420 DO Work Phone: 07-11-2021 16:14-0400 Body surface area Derived from formula 2.06 m2 Celio Zhou Work Phone: HP-YROMQ-Utruwygu 2420 DO Work Phone: 07-11-2021 16:14-0400 Body weight 107.96 kg Celio hZou Work Phone: TM-VCOEH-Qrdcsnmd 2420 DO Work Phone: 07-11-2021 16:14-0400 Diastolic blood pressure 70 mm[Hg] Celio Zhou Work Phone: VJ-THSCR-Jqvdhmdi 2420 DO Work Phone: 07-11-2021 16:14-0400 Systolic blood pressure 120 mm[Hg] Celio Zhou Work Phone: NE-JKLMK-Wlbgnuec 2420 DO Work Phone: 06-13-2021 08:39-0400 Body height 157.48 cm Celio Zhou Work Phone: ZU-XPMXC-Eeidakkc 2420 DO Work Phone: 06-13-2021 08:39-0400 Body mass index (BMI) [Ratio] 43.9 kg/m2 Celio Zhou Work Phone: MR-JABWC-Vbpiucxc 2420 DO Work Phone: 06-13-2021 08:39-0400 Body surface area Derived from formula 2.07 m2 Celio Zhou Work Phone: BO-OHBRV-Epzfivjh 2420 DO Work Phone: 06-13-2021 08:39-0400 Body weight 108.86 kg Celio Zhou Work Phone: FS-XOTYS-Ajrbdppq 2420 DO Work Phone: 06-13-2021 08:39-0400 Diastolic blood pressure 64 mm[Hg] Celio Zhou Work Phone: OY-EELQD-Dzgmvbex 2420 DO Work Phone: 06-13-2021 08:39-0400 Systolic blood pressure 118 mm[Hg] Celio Zhou Work Phone: FZ-AWCDQ-Droubpdc 2420 DO Work Phone: 06-13-2021 08:39-0400 0 1 Celio Zhou Work Phone: YX-DNPTR-Ojzrgrif 2420 DO Work Phone: Comment on above: [employer] 05-01-2021 13:23-0500 Body height 157.48 cm Celio Zhou Work Phone: [facility] Work Phone: 05-01-2021 13:23-0500 Body mass index (BMI) [Ratio] 43.01 kg/m2 Celio Ledesmas Work Phone: [facility] Work Phone: 05-01-2021 13:23-0500 Body surface area Derived from formula 2.05 m2 Celio Ledesmas Work Phone: [facility] Work Phone: 05-01-2021 13:23-0500 Body temperature 97.5 [degF] Celio Ledesmas Work Phone: [facility] Work Phone: 05-01-2021 13:23-0500 Body weight 106.65 kg Celio Ledesmas [facility] Work Phone: 05-01-2021 13:23-0500 Diastolic blood pressure 80 mm[Hg] Celio Led[facility]mas [facility] Work Phone: 05-01-2021 13:23-0500 Heart rate 88 /min Celio Ledesmas Work Phone: [facility] Work Phone: 05-01-2021 13:23-0500 Respiratory rate 14 /min Celio Ledesmas Work Phone: [facility] Work Phone: 05-01-2021 13:23-0500 SaO2% (BldA) [Mass fraction] 98 % Celio Ledesmas Work Phone: [facility] Work Phone: 05-01-2021 13:23-0500 Systolic blood pressure 122 mm[Hg] Celio Ledesmas Work Phone: [facility] Work Phone: 12-10-2020 09:50-0400 Body height 157.48 cm Celio Zhou [facility] Work Phone: 12-10-2020 09:50-0400 Body mass index (BMI) [Ratio] 40.57 kg/m2 Celio Ledesmas Work Phone: [facility] Work Phone: 12-10-2020 09:50-0400 Body surface area Derived from formula 2 m2 Celio Zhou Work Phone: [facility] Work Phone: 12-10-2020 09:50-0400 Body temperature 97.8 [degF] Celio Zhou Work Phone: [facility] Work Phone: 12-10-2020 09:50-0400 Body weight 100.61 kg Celio Zhou Work Phone: [facility] Work Phone: 12-10-2020 09:50-0400 Diastolic blood pressure 78 mm[Hg] Celio Zhou Work Phone: [facility] Work Phone: 12-10-2020 09:50-0400 Heart rate 69 /min Celio Ledesmas Work Phone: [facility] Work Phone: 12-10-2020 09:50-0400 Respiratory rate 16 /min Celio Ledesmas Work Phone: [facility] Work Phone: 12-10-2020 09:50-0400 SaO2% (BldA) [Mass fraction] 99 % Celio Zhou Work Phone: [facility] Work Phone: 12-10-2020 09:50-0400 Systolic blood pressure 112 mm[Hg] Celio Zhou Work Phone: [facility] Work Phone: 10-08-2020 10:53-0400 Body height 157.48 cm Celio Zhou Work Phone: [facility] Work Phone: 10-08-2020 10:53-0400 Body mass index (BMI) [Ratio] 40.6 kg/m2 Celio Zhou [facility] Work Phone: 10-08-2020 10:53-0400 Body surface area Derived from formula 2 m2 Celio Zhou [facility] Work Phone: 10-08-2020 10:53-0400 Body temperature 97.2 [degF] Celio Zhou [facility] Work Phone: 10-08-2020 10:53-0400 Body weight 100.7 kg Celio Zhou [facility] Work Phone: 10-08-2020 10:53-0400 Diastolic blood pressure 84 mm[Hg] Celio Ledesmas Work Phone: [facility] Work Phone: 10-08-2020 10:53-0400 Heart rate 80 /min Celio Ledesmas [facility] Work Phone: 10-08-2020 10:53-0400 Respiratory rate 16 /min Celio Zhou Work Phone: [facility] Work Phone: 10-08-2020 10:53-0400 SaO2% (BldA) [Mass fraction] 98 % Celio Zhou Work Phone: [facility] Work Phone: 10-08-2020 10:53-0400 Systolic blood pressure 112 mm[Hg] Celio Zhou Work Phone: [facility] Work Phone: 08-06-2020 09:25-0400 Body height 157.48 cm Celio Zhou Work Phone: [facility] Work Phone: 08-06-2020 09:25-0400 Body mass index (BMI) [Ratio] 43.53 kg/m2 Celio Zhou Work Phone: [facility] Work Phone: 08-06-2020 09:25-0400 Body surface area Derived from formula 2.06 m2 Celio Zhou Work Phone: [facility] Work Phone: 08-06-2020 09:25-0400 Body temperature 97.2 [degF] Celio Zhou Work Phone: [facility] Work Phone: 08-06-2020 09:25-0400 Body weight 107.96 kg Celio Ledesmas Work Phone: [facility] Work Phone: 08-06-2020 09:25-0400 Diastolic blood pressure 80 mm[Hg] Celio Zhou Work Phone: [facility] Work Phone: 08-06-2020 09:25-0400 Heart rate 72 /min Celio Zhou Work Phone: [facility] Work Phone: 08-06-2020 09:25-0400 SaO2% (BldA) [Mass fraction] 100 % Celio Zhou Work [facility]: [facility] Work Phone: 08-06-2020 09:25-0400 Systolic blood pressure 106 mm[Hg] Celio Zhou [facility] Work Phone: 07-10-2020 09:07-0400 Body height 157.48 cm Celio Zhou [facility] Work Phone: 07-10-2020 09:07-0400 Body mass index (BMI) [Ratio] 44.99 kg/m2 Celio Zhou [facility] Work Phone: 07-10-2020 09:07-0400 Body surface area Derived from formula 2.09 m2 Celio Zhou [facility] Work Phone: 07-10-2020 09:07-0400 Body temperature 97.2 [degF] Celio Zhou [facility] Work Phone: 07-10-2020 09:07-0400 Body weight 111.59 kg Celio Zhou [facility] Work Phone: 07-10-2020 09:07-0400 Diastolic blood pressure 86 mm[Hg] Celio Zhou Work Phone: [facility] Work Phone: 07-10-2020 09:07-0400 Heart rate 93 /min Celio Zhou Work Phone: [facility] Work Phone: 07-10-2020 09:07-0400 SaO2% (BldA) [Mass fraction] 98 % Celio Zhou Work Phone: [facility] Work Phone: 07-10-2020 09:07-0400 Systolic blood pressure 108 mm[Hg] Celio Zhou Work Phone: [facility] Work Phone: 04-03-2020 12:48-0500 BMI (Body Mass Index) 47.92 kg/m2 Gera Flanagan NP-KDHHN-Tqtvdt 320 Work Phone: 04-03-2020 12:48-0500 Body weight 118.84 kg Gera Flanagan AT-AVPZW-Tycqxv 320 Work Phone: 04-03-2020 12:48-0500 BSA (Body Surface Area) 2.14 m2 Gera Flanagan GU-RLTCI-Fgbzzr 320 Work Phone: 04-03-2020 12:48-0500 Height 157.48 cm Gera Flanagan FS-NSKMB-Kznyee 320 Work Phone: 04-03-2020 12:48-0500 0 1 Gera Flanagan FQ-KMBOW-Vaiwkj 320 Work Phone: Comment on above: Para Pain Scale 01-26-2020 17:04-0500 BMI (Body Mass Index) 47.98 kg/m2 Mishel Cartagena EU-VLGTC-Qwrdls 310 IVF Work Phone: 01-26-2020 17:04-0500 Body weight 118.98 kg Mishel Cartagena ZK-QVFGL-Ryfnjn 310 IVF Work Phone: 01-26-2020 17:04-0500 BSA (Body Surface Area) 2.15 m2 Mishel Foxerman DU-CMHZR-Pcftbs 310 IVF Work Phone: 01-26-2020 17:04-0500 Height 157.48 cm Mishel Foxerman LL-YXNZX-Xkkpio 310 IVF Work Phone: 01-26-2020 17:04-0500 0 1 Mishel Foxerman VP-LNQXH-Wmnwcq 310 IVF Work Phone: Comment on above: Pain Scale Para 01-22-2020 11:58-0500 BP Diastolic 86 mm[Hg] Mishel Foxerman QZ-TXMLP-Sqqbly 310 IVF Work Phone: 01-22-2020 11:58-0500 BP Systolic 132 mm[Hg] Mishel Foxerman EB-OGOEY-Pxsorz 310 IVF Work Phone: 01-22-2020 11:33-0500 BMI (Body Mass Index) 48.35 kg/m2 Mishel Foxerman ZL-ERESI-Tayneu 310 IVF Work Phone: 01-22-2020 11:33-0500 Body Temperature 98.6 [degF] Mishel Cartagena ZB-KBAQS-Xxukl n 310 IVF Work Phone: 01-22-2020 11:33-0500 Body weight 119.92 kg Mishel Foxerman OV-NFHBK-Mnvifh 310 IVF Work Phone: 01-22-2020 11:33-0500 BP Diastolic 100 mm[Hg] Mishel Weinerman ZI-QUNBW-Xhahmz 310 IVF Work Phone: 01-22-2020 11:33-0500 BP Systolic 124 mm[Hg] Mishel Foxerman QJ-DFQVH-Emzvga 310 IVF Work Phone: 01-22-2020 11:33-0500 BSA (Body Surface Area) 2.15 m2 Mishel Cartagena GO-EEQKZ-Uturxp 310 IVF Work Phone: 01-22-2020 11:33-0500 Height 157.48 cm Mishel Cartagena LB-XTIUE-Gwzfok 310 IVF Work Phone: 01-22-2020 11:33-0500 Pulse (Heart Rate) 74 /min Mishel Cartagena SE-JQAMB-Crl man 310 IVF Work Phone: 01-22-2020 11:33-0500 Pulse Oximetry 99 % Mishel Cartagena BC-GHKHH-Gzmnid 310 IVF Work Phone: [id number] 01:00-0400 >na< Mike Nicholson Dept. 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 Encounters Encounter Date Encounter Type Care Provider Facility Start: 11-30-2024 ambulatory Carmen Perdomo Facility :[facility] Start: 11-20-2024 ambulatory Carmen Perdomo Facility :[facility] Start: 10-30-2024 End: 10-30-[address] Tawana Timmons MD Work Phone: -[facility] Start: 10-30-2024 End: 10-30-2024 Patient encounter procedure Carmen Perdomo [facility] -[facility] Work Phone: Start: 10-30-2024 End: 10-30-2024 ambulatory Carmen Perdomo Facility:[facility] Start: 10-02-2024 End: 10-02-2024 Patient encounter procedure Carmen SHAY -[facility] Work Phone: Start: 10-02-2024 End: 10-02-2024 ambulatory Carmen Perdomo CNM Work Phone: -[facility] Start: 09-12-2024 End: 09-12-2024 ambulatory JUDIE BELLA [facility] Start: 09-01-2024 End: 09-01-[address] Anh Song DO -[facility] Work Phone: Start: 09-01-2024 End: 09-01-2024 ambulatory Carmen Perdomo CNM Work Phone: -[facility] Start: 08-31-2024 End: 08-31-[address] [facility] Start: 08-02-2024 End: 08-02-[address] Anh Song DO -[facility] Work Phone: Start: 08-02-2024 End: 08-02-2024 ambulatory Carmen Perdomo CNM Work Phone: [facility] Work Phone: Start: 08-02-2024 End: 08-02-2024 ambulatory Tawana Timmons Facility:[facility] Start: 07-21-2024 End: 07-21-2024 Non-patient / Non-visit Dr. Arnulfo Gilmore MD -[facility] Work Phone: Start: 07-21-2024 End: 07-21-2024 ambulatory Carmen Perdomo CNM Work Phone: [facility] Work Phone: Start: 07-21-2024 End: 07-21-[address] Tawana Timmons MD -Pulmonary Services/Neurology Work Phone: Start: 07-21-2024 End: 07-21-2024 ambulatory Tawana Timmons Facility:[facility] Start: 07-06-2024 End: 07-06-[address] Tawana Timmons MD -[facility] Work Phone: Start: 07-06-2024 End: 07-06-2024 ambulatory Carmen Perdomo CNM Work Phone: [facility] Work Phone: Start: 07-06-2024 End: 07-06-2024 ambulatory Carmen Perdomo Facility:[facility] Start: 06-09-2024 End: 06-09-2024 ambulatory Carmen Perdomo CNM Work Phone: [facility] Work Phone: Start: 06-09-2024 End: 06-09-2024 Patient encounter procedure Carmen Perdomo CNM -Laboratory, Specimen Work Phone: Start: 06-09-2024 End: 06-09-2024 Patient encounter procedure Carmen Perdomo CNM -[facility] Work Phone: Start: 06-09-2024 End: 06-09-2024 ambulatory Carmen Perdomo Facility:[facility] Start: 06-09-2024 End: 06-09-2024 ambulatory Carmen Perdomo Facility:[facility] Start: 05-26-2024 Non-patient / Non-visit Andressa walker RN -[facility] Work Phone: Start: 05-26-2024 ambulatory Andressa Schmitz Facility :[facility] Start: 05-03-2024 End: 05-03-2024 ambulatory Carmen Perdomo CNM Work Phone: [facility] Work Phone: Start: 05-03-2024 End: 05-03-2024 Patient encounter procedure Carmen Perdomo CNM -Laboratory, Specimen Work Phone: Start: 05-03-2024 Encounter for gynecological examination (general) (routine) without abnormal findings Carmen Perdomo [facility] Start: 05-03-2024 End: 05-03-2024 Patient encounter procedure Carmen Perdomo CNM -[facility] @ Start: 05-03-2024 End: 05-03-2024 Patient encounter status Carmen Perdomo CNM [facility] Start: 05-03-2024 End: 05-03-2024 ambulatory Carmen Perdomo Facility:[facility] Start: 05-03-2024 End: 05-03-2024 ambulatory Carmen Perdomo Facility:[facility] Start: 08-05-2023 End: 08-05-2023 Emergency department patient visit JOSEPH DEL CID DO [place] Start: 07-22-2023 End: 07-22-2023 ambulatory [facility]ulatory Start: 07-15-2022 End: 07-16-2022 ambulatory [facility] Nhi [facility] Start: 07-15-2022 End: 07-16-2022 Encounter for general adult medical examination without abnormal findings [facility] Nhi ZHOU [facility] Start: 02-27-2022 ambulatory Ms. Tom Naranjo ie Debra Facility:[id number] Start: 02-27-2022 Phys/qhp telephone evaluation 11-20 min Celio Zhou Work Phone: GO-JRIIL-Leihekry 2420 DO Work Phone: Start: 02-24-2022 Patient encounter procedure Celio Zhou Work Phone: TJ-Pfberfbcgl-Vlajnhk 1200 DO Work Phone: Start: 02-13-2022 Telephone encounter Celio flannery Work Phone: FM-XLGMW-BPT 1200 [place] Work Phone: Start: 02-04-2022 Patient encounter procedure Celio Zhou Work Phone: YG-MJWHB-Oqganfsm 2420 DO Work Phone: Start: 02-04-2022 ambulatory Ms. Tom Naranjo ie Debra Facility:[id number] Start: 01-19-2022 ambulatory CELIO ZHOU Facility :[facility] Start: 01-19-2022 Encounter for examination of blood pressure without abnormal findings Suki You [facility] Start: 01-19-2022 Chart Update Celio Zhou Work Phone: GT-FBBRC-JKD 1200 [place] Work Phone: Start: 01-15-2022 ambulatory CELIO ZHOU Facility :[id number] Start: 01-15-2022 Chart Update Celio Zhou Work Phone: ZV-JWCEU-Kmevbea 2nd Fl Work Phone: Start: 01-11-2022 End: 01-11-2022 ambulatory [facility] Work Phone: Start: 01-11-2022 End: 01-11-2022 Patient encounter procedure [facility] Start: 01-07-2022 Do All Operator Encounter Celio Zhou Work Phone: OD-RUCPO-Ygrskc 100 [facility] Work Phone: Start: 01-04-2022 End: 01-07-2022 Evaluation and management of inpatient Sarina Rodriguez 3 Rm [id number] Start: 12-31-2021 Office outpatient vi sit 15 minutes Celio Rosasolas Work Phone: IH-RDGSU-ZDE 1200 [place] Work Phone: Start: 12-31-2021 ambulatory Ms. Tom Naranjo ie Debra Facility:[id number] Start: 12-24-2021 Office outpatient vi sit 15 minutes Celio Hankins Alinas Work Phone: TG-RCYDI-Jvimktvv 2420 DO Work Phone: Start: 12-24-2021 ambulatory CELIO ZHOU Facility :[id number] Start: 12-23-2021 End: 12-23-2021 ambulatory Unavailable Patient Facility:[facility] Start: 12-22-2021 ambulatory Ms. Tom Naranjo ie Petr-Petros Facility:[facility] Romeo [place] Start: 12-17-2021 Office outpatient vi sit 15 minutes Celio Hankins Alinas Work Phone: EP-IRAKB-LKT 1200 [place] Work Phone: Start: 12-17-2021 ambulatory Ms. Tom Naranjo ie Petr-Petros Facility:[id number] Start: 12-15-2021 Chart Update Celio Nhi Aniaolas Work Phone: PJ-JQXRX-JHK 1200 [place] Work Phone: Start: 12-15-2021 ambulatory Ms. Tom Naranjo ie Petr-Petros Facility:[facility] Romeo [place] Start: 12-12-2021 End: 12-12-2021 ambulatory Unavailable Patient Facility:[facility] Start: 12-12-2021 Office outpatient vi sit 15 minutes Celio Ledesmas Work Phone: [id number]-WSDVK-RHN 1200 [place] Work Phone: Start: 12-12-2021 ambulatory CELIO ZHOU Facility :[id number] Start: 11-13-2021 Patient encounter procedure Celoi Ledesmas Work Phone: MS-ILVMO-Gizbeeau 2420 DO Work Phone: Start: 11-13-2021 ambulatory Dariela ni [facility] Facility:9459 Start: 11-06-2021 ambulatory Ms. Tom Naranjo ie PetrBeijing [employer]iro Facility:[facility] Romeo [place] Start: 11-06-2021 Rx Renewal Celio Ledesmas Work Phone: [facility] Work Phone: Start: 10-30-2021 Office outpatient vi sit 15 minutes Celio Ledesmas Work Phone: JK-QKGNY-Fzmjahna 2420 DO Work Phone: Start: 10-30-2021 ambulatory Suki You [facility] lity:[id number] Start: 10-08-2021 Chart Update Celio Ledesmas Work Phone: IR-CWCOP-Whhgiadr 2420 DO Work Phone: Start: 10-03-2021 ambulatory Ms. Tom Naranjo ie PetrSalesforcePetros Facility:9459 Start: 10-03-2021 Office outpatient vi sit 15 minutes Celio Ledesmas Work Phone: MH-HSVQR-AMW 1200 [place] Work Phone: Start: 09-11-2021 [facility] Start: 09-11-2021 Patient encounter procedure Celio Ledesmas Work Phone: AG-LQLMJ-Tzygwpxq 2420 DO Work Phone: Start: 09-05-2021 Chart Update Celio W Escolas Work Phone: RT-NDAZA-Qllrljii 2420 DO Work Phone: Start: 08-29-2021 ambulatory Ms. Tom Naranjo ie Petr-Petros Facility:[facility] Start: 08-07-2021 ambulatory Dariela Campuzano Facility:9459 Start: 08-07-2021 Office outpatient vi sit 15 minutes Celio Nhi Escolas Work Phone: HW-OGUDX-Gglldkvb 2420 DO Work Phone: Start: 07-11-2021 ambulatory Ms. Tom Naranjo ie Petr-[employer]tn Facility:9459 Start: 07-11-2021 Office outpatient vi sit 15 minutes Celio Nhi Escolas Work Phone: XM-WLTPQ-Qjfhjnoi 2420 DO Work Phone: Start: 07-01-2021 Chart Update Celio W Escolas Work Phone: GT-BBGWH-NTY 1200 [place] Work Phone: Start: 06-30-2021 ambulatory CELIO W ESCOLAS Facility :[facility] Start: 06-24-2021 Chart Update Celio W Escolas Work Phone: UP-VDGZR-XGX 1200 [place] Work Phone: Start: 06-16-2021 AUDIT Celio W Escolas Work Phone: QN-Ajlujyfr-Izpjpqjp Rossiter Work Phone: Start: 06-13-2021 Office outpatient ne w 45 minutes Celio Nhi Escolas Work Phone: PC-AFIRG-Tabcghjh 2420 DO Work Phone: Start: 06-13-2021 ambulatory Ms. Tom Naranjo ie Petr-Petros Facility:9459 Start: 06-13-2021 ambulatory Ms. Tom patel Petr-Banak Facility:[facility] Start: 06-13-2021 ambulatory CELIO LEDESMAS Facility :[facility] Start: 06-04-2021 ULTRASDFNT, Provider : JERROD NYE, Status: Pen, Time: 3:30 PM Celio Rosasolas Work Phone: zz DO NOT USE - [employer] Only Start: 06-04-2021 ambulatory CELIO ROSASOLAS Facility :[facility] Romeo [place] Start: 06-03-2021 Image Encounter Celio Ledesmas Work Phone: zz DO NOT USE - [employer] Only Start: 06-03-2021 AUDIT Celio Rosasolas Work Phone: [id number] 1200 [place] Work Phone: Start: 05-01-2021 Office outpatient vi sit 25 minutes [facility] Start: 05-01-2021 ambulatory CELIO LEDESMAS Facility :[id number] Start: 04-08-2021 ambulatory CELIO LEDESMAS Facility :[id number] Start: 04-07-2021 End: 04-08-2021 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 Start: 04-07-2021 End: 04-08-2021 Office outpatient visit 15 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 Start: 02-05-2021 Rx Renewal Celio Rosasolas Work Phone: [facility] Work Phone: Start: 01-29-2021 Rx Renewal Celio Hankins Escolas Work Phone: [facility] Work Phone: Start: 12-10-2020 Office outpatient vi sit 15 minutes Celio Hankins Escolas [facility]: Start: 10-08-2020 Office outpatient vi sit 25 minutes [facility] Zhou [facility]: Start: 10-08-2020 Patient encounter procedure Celio Hankins Winnie [facility]: [facility]: Start: 10-03-2020 AUDIT Celio Zhou Work Phone: [facility] [address] Work Phone: Start: 08-08-2020 Chart Update Celio Zhou Work Phone: [facility] [place] 1600 DO Work Phone: Start: 08-06-2020 Office outpatient vi sit 15 minutes [facility]: Start: 04-03-2020 Patient encounter procedure Gera Panchito PS-YJNME-Hgunct 320 Work Phone: Start: 03-14-2020 Patient encounter procedure Gera Flanagan QB-PZYKN-Nerior 320 Work Phone: Start: 03-13-2020 Patient encounter procedure Gera Flanagan XT-PUKKE-Vwkyjn 310 IVF Work Phone: Start: 03-06-2020 Patient encounter procedure Gera Flanagan VO-YYRGJ-Reavdd 310 IVF Work Phone: Start: 02-15-2020 Patient encounter procedure Gera Flanagan HN-NEOVB-Xrbvmk 310 IVF Work Phone: Start: 02-12-2020 Patient encounter procedure Gera Flanagan NB-OAZNO-Tqcfmw 310 IVF Work Phone: Start: 01-26-2020 Patient encounter procedure Mishel Cartagena BB-AJPZN-Vmayio 310 IVF Work Phone: Start: 01-22-2020 Patient encounter procedure Mishel Cartagena DF-EPATF-Jkfmaq 310 IVF Work Phone: Start: 01-16-2020 Patient encounter procedure Mishel Cartagena IH-BXGIS-Kzyyid 310 IVF Work Phone: Start: 12-15-2019 Patient encounter procedure Gera Flanagan HN-NJUYG-Pymmsj 310 IVF Work Phone: Start: 09-18-2019 Patient encounter procedure Mishel Cartagena PW-MXKMP-Xxfcsf 310 IVF Work Phone: Start: 04-07-2019 Patient encounter procedure Celio Zhou -[facility] Work Phone: Start: 01-27-2019 Patient encounter procedure Celio Zhou -[facility] Work Phone: Start: 12-27-2018 Patient encounter procedure Celio Zhou [facility] Work Phone: End: 01-28-2019 Patient encounter procedure Celio Zhou Work Phone: [facility] Work Phone: Procedures Date Procedure Procedure Detail Performing Clinician Start: 10-30-2024 Serologic test for syphilis Dr. Tawana Timmons MD Work Phone: Start: 07-06-2024 Hepatitis C antibody measurement Carmen Perdomo [facility] Work Phone: Comment on above: Reactive: Presumptiv e evidence of antibodies to HCV. Follow CDC recommendations for supplemental testing.Non-Reactive: Antibodies to HCV were not detected; does not exclude the possibility of exposure to HCVReactive Results are presumptive evidence of antibodies to HCV. Follow CDC recommendations for supplemental testing.Order confirmation testing: HCV Quant by PCR testing - HCVPCR #[id number] Non Reactive: < 0.8 Equivocal: >/= 0.8 to < 1.0 Reactive: >/= 1.0The CDC requires that a reactive/equivocal HCV antibody result be sent out for confirmation. HCV Quant by PCR testing. Start: 07-06-2024 Procedure Carmen blount [facility] Work Phone: Start: 07-06-2024 Rubella IgG measurement Carmen Perdomo [facility] Work Phone: Comment on above: Antibody Result: Int erpretationNon-Reactive: Non- ImmuneReactive: ImmuneThe following results were obtained with the [employer] Rubella IgG assay. Results from assays of other manufacturers cannot be used interchangeably. Start: 07-06-2024 Serologic test for syphilis Carmen Perdomo [facility] Work Phone: Start: 06-09-2024 Urine culture Carmen lowery [facility] Work Phone: Start: 05-03-2024 Liquid based cervica l cytology screening Carmen Perdomo [facility] Work Phone: Comment on above: NEGATIVE FOR INTRAEP ITHELIAL LESION OR MALIGNANCY.CELLULAR CHANGES ASSOCIATED WITH INFLAMMATION ARE PRESENT. This liquid based Th inPrep(R) pap test was screened withthe use of an image guided system. Start: 07-15-2022 CBC panel - Blood by Automated count CELIO ZHOU Start: 07-15-2022 Comprehensive metabo lic 2000 panel - Serum or Plasma CELIO ZHOU Start: 07-15-2022 Thyrotropin [Units/v olume] in Serum or Plasma CELIO ZHOU Start: 07-15-2022 THYROXINE, FREE CELIO ES NUSRAT Start: 07-15-2022 THYROXINE, TOTAL CELIO E SCOLAS Start: 02-24-2022 Psychiatric diagnost ic eval w/medical services Celio Zhou Work Phone: Start: 01-04-2022 Antibody screen Marielle Campuznao Comment on above: Performed By: #### T +S #### [facility] [address] [place] [id number] Start: 06-13-2021 Antibody screen Marielle Campuzano Comment on above: Performed By: #### T +S #### [facility] [address] [place] [address] Start: 03-29-2020 Assay of estradiol Andrew Flanagan Start: 03-29-2020 Gonadotropin luteini zing hormone Gera Flanagan Start: 03-04-2020 IO Ultrasound, limit ed pelvic, follicle monitoring Gera Flanagan Start: 02-02-2020 Assay of estradiol Courtney sunil Cartagena Start: 02-02-2020 Gonadotropin luteini zing hormone Mishel Zhou Colposcopy Mishel [place] Plan of Treatment Date Care Activity Detail Author Start: 10-30-2024 CBC W Auto Different ial panel - Blood [facility] Start: 10-30-2024 Measurement of gluco se 2 hours after glucose challenge for glucose tolerance test [facility] Start: 10-30-2024 Serologic test for syphilis [facility] Start: 10-30-2024 [facility] Start: 06-09-2024 Chlamydia deoxyribon ucleic acid detection [facility] Start: 03-24-2022 VIRFULISSA, Provider : Michelle Ervin, Status: Pen, Time: 10:00 AM VIRFUVSOPHIE, Provider: Michelle Ervin, Status: Pen, Time: 10:00 AM SF-EZQNP-Cwhsujvx 2420 DO Work Phone: Start: 02-24-2022 VIRNPLISSA, Provider : Michelle Ervin, Status: Pen, Time: 12:30 PM VIRNPVHOME, Provider: Michelle Ervin, Status: Pen, Time: 12:30 PM DA-TAGYV-GMF 1200 [place] Work Phone: Start: 02-04-2022 Patient encounter procedure JAW SKINNER Nurse [facility] Start: 02-04-2022 PPV, Provider: Tom Bull, Status: Pen, Time: 2:30 PM PPV, Provider: Sophia Bull, Status: Pen, Time: 2:[address]-SJZME-Fpawhu 100 [facility] Work Phone: Start: 01-19-2022 PPV, Provider: Suki You, Status: Pen, Time: 1:30 PM PPV, Provider: Suki You, Status: Pen, Time: 1:30 PM VY-ZUDGL-Mmbwsvz 2nd Fl Work Phone: Start: 01-15-2022 Patient encounter procedure JAW SKINNER Romeo Start: 01-15-2022 PPV, Provider: Suki You, Status: Pen, Time: 2:30 PM PPV, Provider: Suki You, Status: Pen, Time: 2:30 PM FY-WKOJN-Ycpwch 100 [facility] Work Phone: Start: 01-11-2022 Patient discharge [facility] Work Phone: Start: 01-09-2022 EPVOB, Provider: Dariela Campuzano, Status: Pen, Time: 4:15 PM EPVOB, Provider: Dariela Campuzano , Status: Pen, Time: 4:15 PM VJ-YWPAV-Aopnpajg 2420 DO Work Phone: Start: 01-09-2022 RNVISIT, Provider: JERROD LEWIS, Status: Pen, Time: 3:45 PM RNVISIT, Provider: OB JERROD GARSIA, Status: Pen, Time: 3:45 PM MM-VISTV-Vwdxwusd 2420 DO Work Phone: Start: 01-05-2022 End: 01-05-2022 Placental Record [Baby A] Placental Record [Baby A] Date: 05-Jan-2022 [facility] Start: 01-05-2022 End: 01-06-2023 [facility] Comment on above: Consult provider jose or to administration. Push over more than 2 minutes. Systolic greater than or equal to 160 OR Diastolic greater than or equal to 110. Contraindications: active asthma, heart disease, heart failure, maternal bradycardia < 60. Consult provider jose or to administration. Push over more than 2 minutes. Systolic greater than or equal to 160 OR Diastolic greater than or equal to 110. Contraindication: coronary artery disease (CAD); Caution in suspected CAD. Consult provider jose or to administration. Systolic greater than or equal to 160 OR Diastolic greater than or equal to 110. Capsules administered orally and swallowed whole; Do not puncture or crush; Do not administer sublingually. May self-administer after voiding After and PRN Before Discharge Consult provider jose or to administration. Conditional order. C onsult Provider prior to administration. Max dose of 16mg / 2 4 hours Conditional order. 6 00 milliunits/min x 30 mins., then 60 milliunits/min for the remainder of the bag. Consult Provider prior to administration. Start: 01-04-2022 [facility] Provider: Jagjit Boles, Status: Pen, Time: 8:00 AM SURGCMC, Provider: Jagjit Boles, Status: Pen, Time: 8:00 AM WX-DZXYG-Zedsfiae 2420 DO Work Phone: Start: 01-02-2022 EPVOB, Provider: Tom Bull, Status: Pen, Time: 4:15 PM EPVOB, Provider: Sophia Bull, Status: Pen, Time: 4:15 PM MS-WMPPA-Fktshnnb 2420 DO Work Phone: Start: 01-02-2022 RNVISIT, Provider: O B NURSES JERROD CARDONA, Status: Pen, Time: 3:45 PM RNVISIT, Provider: OB NURSES JERROD CARDONA, Status: Pen, Time: 3:45 PM BB-WDJGS-Hlvqotbm 2420 DO Work Phone: Start: 12-31-2021 EPVOB, Provider: Tom Bull, Status: Pen, Time: 2:45 PM EPVOB, Provider: Sophia Bull, Status: Pen, Time: 2:45 PM VF-NLAYM-Brkvdafl 2420 DO Work Phone: Start: 12-31-2021 RNVISIT, Provider: O B NURSES JERROD CARDONA, Status: Pen, Time: 2:15 PM RNVISIT, Provider: OB NURSES JERROD CARDONA, Status: Pen, Time: 2:15 PM DH-XOUYS-Vpdtjzge 2420 DO Work Phone: Start: 12-24-2021 EPVOB, Provider: oTm Bull, Status: Pen, Time: 3:30 PM EPVOB, Provider: Sophia Bull, Status: Pen, Time: 3:30 PM JS-RVNUM-Jtcyzwtu 2420 DO Work Phone: Start: 12-24-2021 RNVISIT, Provider: O B NURSES ROMEO,MGOBGYN, Status: Pen, Time: 3:00 PM RNVISIT, Provider: OB NURSES ROMEOMGOBGYN, Status: Pen, Time: 3:00 PM TY-JYSOV-Pzrlkjka 2420 DO Work Phone: Start: 12-18-2021 EPVOB, Provider: Dariela Campuzano, Status: Pen, Time: 2:45 PM EPVOB, Provider: Dariela Campuzano , Status: Pen, Time: 2:45 PM RL-KBBQA-Qvtqadok 2420 DO Work Phone: Start: 12-18-2021 RNVISIT, Provider: O B NURSES ROMEO,MGOBGYN, Status: Pen, Time: 2:15 PM RNVISIT, Provider: OB NURSES ROMEOMGOBGYN, Status: Pen, Time: 2:15 PM RA-VIOXJ-Euqswhxc 2420 DO Work Phone: Start: 12-15-2021 ULTRASDFUV, Provider : OB DONALD,MGOBGYN, Status: Pen, Time: 3:30 PM ULTRASDFUV, Provider: OB DONALD,MGOBGYN, Status: Pen, Time: 3:30 PM JB-UHIEM-Ydicialt 2420 DO Work Phone: Start: 12-12-2021 EPVOB, Provider: Dariela Campuzano, Status: Pen, Time: 4:15 PM EPVOB, Provider: Dariela Campuzano , Status: Pen, Time: 4:15 PM ZB-DQBAW-Cwclisoq 2420 DO Work Phone: Start: 12-12-2021 EPVOB, Provider: Tom Bull, Status: Pen, Time: 4:00 PM EPVOB, Provider: Sophia Bull, Status: Pen, Time: 4:00 PM DD-FIJEI-RZV 1200 [place] Work Phone: Start: 12-12-2021 RNVISIT, Provider: Kelsey CARDONAMGOBGYN, Status: Pen, Time: 3:30 PM RNVISIT, Provider: MG BLAKEOBRILEY, Status: Pen, Time: 3:30 PM ON-RHRWG-Srnunmyq 2420 DO Work Phone: Start: 11-28-2021 EPVOB, Provider: Tom Bull, Status: Pen, Time: 4:00 PM EPVOB, Provider: Sophia Bull, Status: Pen, Time: 4:00 PM BK-RYJTF-Kpnbjnrv 2420 DO Work Phone: Start: 11-13-2021 EPVOB, Provider: Dariela Campuzano, Status: Pen, Time: 2:30 PM EPVOB, Provider: Dariela Campuzano , Status: Pen, Time: 2:30 PM CU-YVIED-Wkbnftic 2420 DO Work Phone: Start: 11-06-2021 ULTRASDFUV, Provider : MG SOFIEOBRILEY, Status: Pen, Time: 3:30 PM ULTRASDFUV, Provider: JERROD CARRIZALES, Status: Pen, Time: 3:30 PM UJ-NJAUE-Qldhzmrn 2420 DO Work Phone: Start: 10-31-2021 EPVOB, Provider: Tom Bull, Status: Pen, Time: 4:15 PM EPVOB, Provider: Sophia Bull, Status: Pen, Time: 4:15 PM ZI-AERYD-Mjeqolrf 2420 DO Work Phone: Start: 10-31-2021 ULTRASDFUV, Provider : JERROD CARRIZALES, Status: Pen, Time: 1:15 PM ULTRASDFUV, Provider: JERROD CARRIZALES, Status: Pen, Time: 1:15 PM IF-MZEHC-Kkfrmeim 2420 DO Work Phone: Start: 10-30-2021 ULTRASDFUV, Provider : LELAND HARPER 2,MGOBGYN, Status: Pen, Time: 3:00 PM ULTRASDFUV, Provider: LELAND HARPER 2,MGOBGYN, Status: Pen, Time: 3:00 PM EW-TPBCM-ABK 1200 [place] Work Phone: Start: 10-30-2021 EPVOB, Provider: Suki You, Status: Pen, Time: 11:45 AM EPVOB, Provider: Suki You, Status: Pen, Time: 11:45 AM NL-RDJUE-KUG 1200 [place] Work Phone: Start: 10-03-2021 EPVOB, Provider: Tom Bull, Status: Pen, Time: 4:15 PM EPVOB, Provider: Sophia Bull, Status: Pen, Time: 4:15 PM TS-AYLUL-Byrlxgta 2420 DO Work Phone: Start: 09-11-2021 EPVOB, Provider: Dariela Campuzano, Status: Pen, Time: 10:45 AM EPVOB, Provider: Dariela Campuzano , Status: Pen, Time: 10:45 AM EA-ELXFE-Jjphejdu 2420 DO Work Phone: Start: 09-05-2021 EPVOB, Provider: Tom Bull, Status: Pen, Time: 4:15 PM EPVOB, Provider: Sophia Bull, Status: Pen, Time: 4:15 PM FK-EBZGQ-Uapljptg 2420 DO Work Phone: Start: 08-29-2021 ULTRASDANT, Provider : LELAND HARPER 1,MGOBGYN, Status: Pen, Time: 2:00 PM ULTRASDANT, Provider: LELAND HARPER 1,MGOBGYN, Status: Pen, Time: 2:00 PM XN-UJQVW-Yzlxmhwt 2420 DO Work Phone: Start: 08-07-2021 EPVOB, Provider: Dariela Campuzano, Status: Pen, Time: 11:00 AM EPVOB, Provider: Dariela Campuzano , Status: Pen, Time: 11:00 AM IQ-ANZMA-Beluwyne 2420 DO Work Phone: Start: 07-11-2021 EPVOB, Provider: Tom Bull, Status: Pen, Time: 4:00 PM EPVOB, Provider: Sophia Bull, Status: Pen, Time: 4:00 PM KN-HAIUC-Xsgwypbi 2420 DO Work Phone: Start: 06-30-2021 ULTRASDFNT, Provider : LELAND HARPER 2MGOBGYN, Status: Pen, Time: 3:45 PM ULTRASDFNT, Provider: LELAND HARPER 2MGOBGYN, Status: Pen, Time: 3:45 PM SH-XUNPV-XOL 1200 [place] Work Phone: Start: 06-13-2021 NPVOBINTL, Provider: Tom Bull, Status: Pen, Time: 11:30 AM NPVOBINTL, Provider: Sophia Bull, Status: Pen, Time: 11:30 AM zz DO NOT USE - [facility] Only Start: 05-23-2021 NPVOBINTL, Provider: Dariela Campuzano, Status: Pen, Time: 3:30 PM NPVOBINTL, Provider: Dariela Campuzano , Status: Pen, Time: 3:30 PM [facility]: CBC W Auto Different ial panel - Blood [facility] CBC W Auto Different ial panel - Blood [facility] Comprehensive metabo lic 2000 panel - Serum or Plasma [facility] Electrocardiographic procedure [facility] Erythrocyte mean cor puscular volume determination [facility] Biophysical pr ofile panel US [facility] Hematocrit [Volume F raction] of Blood [facility] Hemoglobin [Mass/vol ume] in Blood [facility] Hemoglobin A1c/Hemoglobin.total in Blood [facility] Hepatitis C antibody measurement [facility] Leukocytes [#/volume ] in Blood [facility] Mean corpuscular hem oglobin concentration determination [facility] Mean corpuscular hem oglobin determination [facility] Measurement of gluco se 2 hours after glucose challenge for glucose tolerance test [facility] Neisseria gonorrhoea e rRNA [Presence] in Unspecified specimen by MCKENZIE with probe detection [facility] Neutrophil count [facility] Neutrophil percent differential count [facility] Patient referral [facility] Work Phone: PCR test for Chlamyd ia trachomatis [facility] Platelets [#/volume] in Blood [facility] Protein/Creatinine [ Ratio] in Urine [facility] Red blood cell count [facility] Red cell distributio n width determination [facility] Rubella IgG measurement [facility] Serologic test for syphilis [facility] Serologic test for syphilis [facility] Ultrasound scan for growth [facility] ZK-BNXTR-Tgndow 310 IVF Work Phone: [facility] NEGATED: Highlighted row has been ruled out! Planned Goals not documented CZ-DPGRZ-Uxisit 310 IVF Work Phone: Immunizations Immunization Date Immunization Notes Care Provider Reynaldo etienne 02-06-2022 Pfizer COVID-19 Vac Bivalent 30 MCG/0.3ML Intramuscular Suspension Celio Zhou Work Phone: MA-Ooqayarrxw-Wuoiiz l 1200 DO Work Phone: 01-07-2022 measles, mumps and rubella virus vaccine Celio Zhou Work Phone: PR-MJYRP-Adotxsu 2nd Fl Work Phone: 11-13-2021 tetanus toxoid, redu sussy diphtheria toxoid, and acellular pertussis vaccine, adsorbed; Translations: [Tdap (Boostrix)] Celio Zhou Work Phone: MZ-FDRKA-Swxhhmlw 2420 DO Work Phone: Comment on above: Series: 01-24-2021 Pfizer-BioNTech COVID-19 Vacc 30 MCG/0.3ML Intramuscular Suspension Celio Zhou Work Phone: [facility] Work Phone: 04-04-2020 Moderna COVID-19 Vaccine 100 MCG/0.5ML Intramuscular Suspension Celio Ledesmas Work Phone: [facility] Work Phone: 03-06-2020 Moderna COVID-19 Vaccine 100 MCG/0.5ML Intramuscular Suspension Celio Zhou Work Phone: [facility] Work Phone: 12-10-2016 influenza, seasonal, injectable Celio Ledesmas Work Phone: [facility] Work Phone: 04-03-2002 hepatitis B vaccine, pediatric or pediatric/adolescent dosage Celio Ledesmas Work Phone: [facility] Work Phone: 10-31-2001 hepatitis B vaccine, pediatric or pediatric/adolescent dosage Celio Ledesmas Work Phone: [facility] Work Phone: 09-28-2001 hepatitis B vaccine, pediatric or pediatric/adolescent dosage Celio Ledsemas Work Phone: [facility] Work Phone: 06-29-1990 diphtheria, tetanus toxoids and acellular pertussis vaccine, unspecified formulation Celio Zhou Work Phone: [facility] Work Phone: 06-29-1990 trivalent poliovirus vaccine, live, oral Celio Ledesmas Work Phone: [facility] Work Phone: 03-30-1990 haemophilus influenz ae type b vaccine, conjugate unspecified formulation Celio Ledesma Work Phone: [facility] Work Phone: 03-30-1990 measles, mumps and rubella virus [facility] Work Phone: 07-07-1989 diphtheria, tetanus toxoids and pertussis vaccine [facility] Work Phone[facility] Work Phone: 05-12-1989 diphtheria, tetanus toxoids and pertussis vaccine [facility] Work [facility]: [facility] Work Phone: 05-12-1989 trivalent poliovirus vaccine, live, oral Celio Zhou Work Phone: [facility] Work Phone: 03-10-1989 diphtheria, tetanus toxoids and pertussis vaccine [facility] Work Phone: [facility] Work Phone: 03-10-1989 trivalent poliovirus vaccine, live, oral [facility] Work Phone: [facility] Work Phone: 1988 pneumococcal conjuga te vaccine, 7 valent Mike 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 influenza virus vaccine, unspecified formulation Mishel VELA-OBGYN-Risman 310 IVF Work Phone: Comment on above: Approx 18Dec2019 Approx 18Dec2019 Ser ies: Payers Date Payer Category Payer Self-pay 2023 Unknown [id number] 2022 Unknown [id number] 2021 Unknown [id number] 1988 Unknown [id number] 2.16 840.1.312116.3.579.2.356 1988 Unknown [id number] 2.16 840.1.647784.3.579.2.356 1988 Unknown [id number] 2. 840.1.053662.3.579.2.356 1988 Unknown [id number] 2. 840.1.194419.3.579.2.356 1988 Unknown [id number] 2. 840.1.238648.3.579.2.356 1988 Unknown [id number] 2. 840.1.940620.3.579.2.356 1988 Unknown [id number] 2. 840.1.441008.3.579.2.356 1988 Unknown [id number] 2. 840.1.094806.3.579.2.356 1988 Unknown [id number] 2.0.1.247483.3.579.2.356 1988 Unknown [id number] 2. 840.1.377815.3.579.2.356 1988 Unknown [id number] 2 840.1.167236.3.579.2.356 1988 Unknown [id number] 2. 840.1.152606.3.579.2.356 1988 Unknown [id number] 2. 840.1.988181.3.579.2.356 1988 Unknown [id number] 2. 840.1.130415.3.579.2.356 1988 Unknown [id number] 2. 840.1.228349.3.579.2.356 1988 Unknown [id number] 2.16. 840.1.764560.3.579.2.356 1988 Unknown [id number] 2.16. 840.1.093244.3.579.2.356 1988 Unknown [id number] 2.16. 840.1.817574.3.579.2.356 1988 Unknown [id number] 2.16. 840.1.334539.3.579.2.356 1988 Unknown [id number] 2.16. 840.1.897415.3.579.2.356 1988 Unknown [id number] 2.16. 840.1.942959.3.579.2.356 1988 Unknown [id number] 2.16. 840.1.583969.3.579.2.356 1988 Unknown [id number] 2.16 840.1.712006.3.579.2.356 1988 Unknown [id number] 2.16. 840.1.194899.3.579.2.356 1988 Unknown [id number] 2.16. 840.1.542048.3.579.2.356 1988 Unknown [id number] 2.16. 840.1.440091.3.579.2.356 1988 Unknown [id number] 2.16 840.1.441090.3.579.2.356 1988 Unknown [id number] 2.16. 840.1.038037.3.579.2.356 1988 Unknown [id number] 2.16.840 .1.870881.3.579.2.1245 1988 Unknown [id number] 2.16.8 40.1.192766.3.579.2.627 1988 Unknown [id number] 2.16.8 40.1.615470.3.579.2.1244 1988 Unknown [id number] 2.. 840.1.097135.3.579.2.479 1988 Unknown [id number] .. 840.1.811094.3.579.2.479 Unknown Unknown [id number] Unknown [id number] 2.16.8 40.1.053545.3.579.2.462 Unknown [id number] 2.16.8 40.1.696396.3.579.2.462 Unknown [id number] 2.16. 40.1.805100.3.579.2.462 Unknown [id number] 2.16. 40.1.554562.3.579.2.462 Unknown [id number] 2.16. 40.1.382398.3.579.2.462 Unknown [id number] 2.. 40.1.173769.3.579.2.462 Unknown [id number] 2.16.8 40.1.489210.3.579.2.462 Unknown [id number] 2.16.8 40.1.240740.3.579.2.462 Unknown [id number] 2.16.8 40.1.866989.3.579.2.462 Unknown [id number] 2.16.8 40.1.951597.3.579.2.462 Unknown [id number] 2.16.8 40.1.101681.3.579.2.462 Unknown [id number] 2.16.8 40.1.005716.3.579.2.462 Unknown [id number] 2.16.8 40.1.879664.3.579.2.462 Unknown [id number] 2.16.8 40.1.014559.3.579.2.462 Unknown [id number] 2.16.8 40.1.199002.3.579.2.462 Unknown [id number] 2.16.8 40.1.119825.3.579.2.462 Unknown [id number] 2.16.8 40.1.288695.3.579.2.462 Social History Date Type Detail Facility Never smoker Never smoker [facility] Work Phone: 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 Start: 1990 Sex Assigned At Female A [facility] Tobacco smoking status No Smoking Status Entered [facility] Start: 05-03-2024 End: 05-26-2024 Tobacco smoking status NHIS Never smoked tobacco (finding) [facility] Start: 05-18-2024 End: 06-13-2024 Sex Female (finding) [facility] NEGATED: Highlighted row - - [facility] Work Phone: Goals Date Patient Goal Desired Activity /State Functional Status Date Assessment Result Facility 08-05-2023 Functional Status Assistive Device None A [facility] 08-05-2023 Functional Status Environmental Safety Implemented Adequate room lighting, Bed in low position, Call device within reach [facility] 08-05-2023 Functional Status Standard Safet y ID band on, Call device within reach, Bed in low position, Wheels locked [facility] Functional observable [facility] [place] NEGATED: Highlighted row Functional performance Functional status health issues are not documented Disease [facility] Work Phone: Mental Status Date Assessment Result Facility 08-05-2023 Mental Status Orientation Orie nted x 4 [facility] 08-05-2023 Mental Status [facility] 01-05-2022 Cognitive functi ons [id number] [facility] NEGATED: Highlighted row Cognitive function [Interpretation] Cognitive status health issues are not documented Disease [facility] Work Phone: Clinical Notes 04-30-2021 to 10-30-2024 Note Date & Type Note Facility 10-30-2024 Progress note [facility] 10-30-2024 Progress note Note Date/Time October 30, 2024 2:14pm [facility] [facility] [address], [address] [place] [address] OFFICE VISIT Date of Service: 10/30/24 MR#: [id number] Acct: [id number] Name: SHU GASPAR Rep #: [id number] : 1990 Provider: AMIE Perodmo Age/Sex: 33/F Location: [facility] Status: Signed Intake Vital Signs 09/01/24 14:59 10/02/24 09:42 10/30/24 13:49 Height 5 ft 2 in 5 ft 2 in 5 ft 2 in Weight: 265 lb 6 oz 268 lb 5 oz BMI 48.5 49.1 BP 124/83 H 120/83 H Intake Visit Reasons: 28wk ob/glucose 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 Is patient in pain?: No Allergies No Known Allergies Allergy (Verified 10/30/24 13:50) Medications ?Medication ?Instructions ?Recorded ?Confirmed ?Type mqhwpwtf-yrc-Rf-FA 1 mg tab PO 01/11/2210/30 History tablet metformin 500 mg tablet mg PO 04/21/23 10/30/24 Hist ory escitalopram oxalate 20 mg tablet 20 mg PO QDAY 10/30/24 History (Lexapro) metoprolol succinate 100 mg 100 mg PO BID 03/17/24 History tablet,extended release 24 hr Last Menstrual Period: 04/09/24 Zika: Zika virus screening: Negative : No Have you fallen in the past year?: No PFSH PFSH Medical History Polycystic disease, ovaries HPV test positive Herpes simplex type 2 infection Hypertension Gallstone Acute thoracic myofascial strain Depression Migraine Surgical History History of colposcopy History of laparoscopic cholecystectomy Family History Brother Alcoholism Colon cancer Myocardial infarction, Onset Age: 44 Mother Depression Father Diabetes Hypertension Grandmother CVA (cerebral vascular accident) Grandmother Thyroid disorder Uterine cancer Other Cancer Social History adopted: No household members: spouse and children housing: condominium number of children: 1 current occupational status: employed 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: No pets and animals: Yes ( taking care of litterbox) pets and animals: cat(s) history of recent travel: No sexually active: Yes Smoking Status: Never smoker second hand exposure: No alcohol intake: never substance use type: does not use well-balanced diet: about half the time caffeine: Yes Type: coffee Number of servings: 1 eating out: 1-3 times/week during the past year weight has: remained stable what type of physical activity do you participate in: none baylee/uatsdin: None seatbelt use: always do you feel safe at home: Yes additional social history: : Parth Leggett History 2 Elective abortions Hx Para 1 Spontaneous abortions Hx # Term Pregnancies 1 Ectopic pregnancies Hx # Pregnancies Multiple births # of living children 1 Past Pregnancies Del. Date Name GA/Weeks Outcome Route Bth Weight Gen Labor Lgth Anesthesia Del Locatn Provider FOB 01/05/22 Chad 39 live - full term 7lbs 8oz Male e pidural Parth Delivery Date: 01/05/22 Last Updated by: Andressa Schmitz RN HTN during labor..(no pre-e but now has chronic HTN) HPI 28wk ob/glucose Details: SHU GASPAR is a 33 year old who presents for routine OB visit. OB Visit SLIME Calculator Estimated Delivery Date Method Current WG Current Estimate 01/14/25 LMP (Certain) 29w 1d Other Estimates 01/17/25 Ultrasound #1 28w 5d Expected Delivery Route/Plan Labor Preferences- CB/BF classes: [] labor support person: [] labor intervention preferences: [] pain management options preferred: [] cut cord/dad catch: [] : [] PP control planned: [] discussed possible routes of delivery and associated risks: [] special requests: [] Specific Issue/Plans Covid status: [] Flu vaccine: [] Tdap vaccine: [] Rhogam: [] LARC form signed: [] Problem list reviewed and updated with the most current plan of care details and appropriate orders placed. Relevant counseling for the gestational age provided. Continue routine care and follow up unless otherwise noted in visit notes/problem list details Initial Weight: 254 lb Date -?-?-?-?-?-?-?-?-?-?-?-?- EGA Weight BP Urine Prot -?-?-?-?-?-?-?-?-?-?-?-?- Glucose FHR FuHt Pres Dilation -?-?-?-?-?-?-?-?-?-?-?-?- Effaced St Visit Note 06/09/24 -?-?-?-?-?-?-?-?-?-?-?-?- 8w 5d 254 lb 8 oz (+8 oz) 125/80 -?-?-?-?-?-?-?-?-?-?-?-?- 178 -?-?-?-?-?-?-?-?-?-?-?-?- KW- CRL cons wit h dates. Accepts NIPT will get drawn at next appt due to BMI. discussed POC with CHTN. will start asa at 12 weeks 07/06/24 -?-?-?-?-?-?-?-?-?-?-?-?- 12w 4d 251 lb 8 oz (-2 lb 8 oz) 123/85 -?-?-?-?-?-?-?-?-?-?-?-?- 168 -?-?-?-?-?-?-?-?-?-?-?-?- SM- no vb crmapi ng will get new ob labs today 08/02/24 -?-?-?-?-?-?-?-?-?-?-?-?- 16w 3d 266 lb (+12 lb) 118/75 Negative -?-?-?-?-?-?-?-?-?-?-?-?- Negative 145 -?-?-?-?-?-?-?-?-?-?-?-?- JV- planning to stop metformin and do glucola at 26-28 weeks. continue baby asa and metoprolol. plan twice weekly testing between 32-34 weeks, deliver at 37-38 weeks. JV- planning to stop metform in and do glucola at 26-28 weeks. continue baby asa and metoprolol. plan twice weekly testing between 32-34 weeks, deliver at 37-38 weeks.prefers belt dresser delivery if possible! JV- planning to stop metform in and do glucola at 26-28 weeks. continue baby asa and metoprolol. plan weekly testing @ 32 weeks, deliver at 37-38 weeks.prefers belt dresser delivery if possible! 09/01/24 -?-?-?-?-?-?-?-?-?-?-?-?- 20w 5d 259 lb 2 oz (+5 lb 2 oz) 119/86 Negative -?-?-?-?-?-?-?-?-?-?-?-?- Negative 150 -?-?-?-?-?-?-?-?-?-?-?-?- JV- no lof, vagi nal bleeding, or dec fm. normal anatomy with exception of decreased views of heart 10/02/24 -?-?-?-?-?-?-?-?-?-?-?-?- 25w 1d 265 lb 6 oz (+11 lb 6 oz) 124/83 Negative -?-?-?-?-?-?-?-?-?-?-?-?- Negative 145 -?-?-?-?-?-?-?-?-?-?-?-?- KW- no vb/lof/ct x. good fm. glucose discussed. KW- no vb/lof/ctx. good fm. glucose discussed. reviewed US 10/30/24 -?-?-?-?-?-?-?-?-?-?-?-?- 29w 1d 268 lb 5 oz (+14 lb 5 oz) 120/83 Negative -?-?-?-?-?-?-?-?-?-?-?-?- Negative 140 -?-?-?-?-?-?-?-?-?-?-?-?- KW- no vb/lof/ct x. good fm. glucose done today. tdap and LARC today. would like IUD PP. KW- no vb/lof/ctx. good fm. glucose done today. tdap and LARC today. would like IUD PP. BPPs and growths ordered starting at 32 weeks. ACOG First Trimester First Trimester: Discussed Second Trimester Second Trimester: Signs and Symptoms of Labor, Selecting a care provider, Reproductive Life Planning & Contreception, Care Planning, Depression/Anxiety and Intimate Partner Violence; Discussed Tobacco Cessation Third Trimester Third Trimester: Pain Management Plans, Labor support person(s), Immediate Larc, Signs and Symptoms of Preeclampsia, Feeding No , [place] Education and Family Medical Leave or Disability Forms ROS Const Reports system reviewed and no additional complaints, except as documented Eyes Reports system reviewed and no additional complaints, except as documented ENT Reports system reviewed and no additional complaints, except as documented Card Reports system reviewed and no additional complaints, except as documented Resp Reports system reviewed and no additional complaints, except as documented GI Reports system reviewed and no additional complaints, except as documented, Denies nausea and Denies vomiting Reports system reviewed and no additional complaints, except as documented Musc Reports system reviewed and no additional complaints, except as documented Skin/Breast Reports system reviewed and no additional complaints, except as documented Neuro Yes system reviewed and no additional complaints, except as documented Psych Reports system reviewed and no additional complaints, except as documented Endo Reports system reviewed and no additional complaints, except as documented Michael/Lymph Reports system reviewed and no additional complaints, except as documented Aller/Immun Reports system reviewed and no additional complaints, except as documented Exam Const General: cooperative, healthy appearing and no acute distress Orientation: alert, awake and oriented x3 Neck Neck: normal visual inspection and full ROM Resp Effort & Inspection: normal respiratory effort, able to speak in complete sentences and symmetric chest movement GI Inspection: normal to inspection Palpation: soft and other Other: gravid Skin General: no rashes or lesions noted Neuro General: patient alert, patient awake and patient oriented x3 Cognition: normal cognition Speech: speech normal Gait: normal gait Motor: muscle tone normal throughout Extrem General: normal to inspection and full ROM Psych Appearance: grossly normal Mental Status: mental status grossly normal Mood: congruent mood Affect: normal affect Speech and Movement: speech and movement normal Attitude: cooperative Thought Process: normal Thought Content: normal Judgment: judgment good Results POC Urinalysis 2 Dip (Clinic) Office Urine Glucose Negative Last Edit by Kadie Smith on 10/30/24 13:57 Office Urine Protein Negative Last Edit by Kadie Smith on 10/30/24 13:57 Coding Level of Care Code OB Routine Diagnoses Polycystic disease, ovaries E28.2 Obesity affecting O99.210 AMA (advanced maternal age) multigravida 35+ O09.529 Supervision of high-risk O09.90 29 weeks gestation of Z3A.29 Weeks of gestation: 29 weeks Herpes simplex type 2 infection B00.9 Hypertension I10 Acute thoracic myofascial strain S29.019A Depression F32.A Assessment and Plan Assessment and Plan (1) Polycystic disease, ovaries: Status: Acute Comment: counseled regarding continuing vs stopping metformin, patient continued last with good outcomes wants to continue this (2) Obesity affecting : Status: Acute Comment: BMI 45.4; BPPs at 34 weeks& needs anesthesia consult HgBA1C ordered w/NOB (3) AMA (advanced maternal age) multigravida 35+: Status: Acute Comment: growth at 36 (4) Supervision of high-risk : Status: Acute Comment: PRR, , SLIME 01/14/25, PC: Chad, PC: Parth (5) : Status: Acute Qualifiers: Weeks of gestation: 29 weeks Qualified Code(s): Z3A.29 - 29 weeks gestation of Comment: accept NIPT- low risk, male (6) Herpes simplex type 2 infection: Status: Acute Comment: Valtrax PRN (7) Hypertension: Status: Chronic Comment: on Metoprolol - weekly bpp's starting 32 weeks. deliver 37-38 weeks. (8) Acute thoracic myofascial strain: Status: Acute (9) Depression: Status: Acute Comment: Lexapro Orders: Orders POC Urinalysis 2 Dip (Clinic) Today Plan Details Additional Comments: ACOG trimester education reviewed and updated. see problem list details for updated plan management information and see below for orders placed at this visit. [place] appropriate handout given. Clinical Quality Measures Falls Risk Screening/Assistive Devices Have you fallen in the past year?: No 10/30/24 1414 <Electronically signed by Carmen dallas CNM> Date _ Carm[facility] Perdomo [facility] Signature: Date (if applicable) CC: ~ [facility] Work Phone: [phone]) 899-320107-28-2025 [facility] [address], [address] [place] [address] OFFICE VISIT Date of Service: 10/02/24 MR#: [id number] Acct: [id number] Name: SHU GASPAR Rep #: [id number] : 1990 Provider: AMIE Perdomo Age/Sex: 33/F Location: [facility] Status: Signed Intake Vital Signs 07/06/24 15:06 09/01/24 14:59 10/02/24 09:42 Height 5 ft 2 in 5 ft 2 in 5 ft 2 in Weight: 265 lb 6 oz BMI 48.5 BP 124/83 H Intake Visit Reasons: 24 wk ob Chief Complaint: 24wk OB 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 Is patient in pain?: No Allergies No Known Allergies Allergy (Verified 10/02/24 09:40) Medications 3 ?Medication ?Instructions ?Recorded ?Confirmed ?Type cfqvfpej-fmz-[place]-FA 1 mg tab PO 01/11/2210/02 History tablet metformin 500 mg tablet mg PO 04/21/23 10/02/24 Hist ory escitalopram oxalate 20 mg tablet 20 mg PO QDAY 10/02/24 History (Lexapro) metoprolol succinate 100 mg 100 mg PO BID 03/17/24 History tablet,extended release 24 hr Last Menstrual Period: 04/09/24 : No PFSH PFSH Medical History Polycystic disease, ovaries HPV test positive Herpes simplex type 2 infection Hypertension Gallstone Acute thoracic myofascial strain Depression Migraine Surgical History History of colposcopy History of laparoscopic cholecystectomy Family History Brother Alcoholism Colon cancer Myocardial infarction, Onset Age: 44 Mother Depression Father Diabetes Hypertension Grandmother CVA (cerebral vascular accident) Grandmother Thyroid disorder Uterine cancer Other Cancer Social History adopted: No household members: spouse and children housing: condominium number of children: 1 current occupational status: employed 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: No pets and animals: Yes ( taking care of litterbox) pets and animals: cat(s) history of recent travel: No sexually active: Yes Smoking Status: Never smoker second hand exposure: No alcohol intake: never substance use type: does not use well-balanced diet: about half the time caffeine: Yes Type: coffee Number of servings: 1 eating out: 1-3 times/week during the past year weight has: remained stable what type of physical activity do you participate in: none baylee/uatsdin: None seatbelt use: always do you feel safe at home: Yes additional social history: : Parth Leggett History 2 Elective abortions Hx Para 1 Spontaneous abortions Hx # Term Pregnancies 1 Ectopic pregnancies Hx # Pregnancies Multiple births # of living children 1 Past Pregnancies Del. Date Name GA/Weeks Outcome Route Bth Weight Infant Gen Labor Lgth Anesthesia Del [facility] Provider FOB 01/05/22 Chad 39 live - full term 7lbs 8oz Male e pidural Parth Delivery Date: 01/05/22 Last Updated by: Andressa Schmitz RN HTN during labor..(no pre-e but now has chronic HTN) HPI 24 wk ob Details: SHU GASPAR is a 33 year old who presents for routine OB visit. OB Visit SLIME Calculator Estimated Delivery Date Method Current WG Current Estimate 01/14/25 LMP (Certain) 25w 1d Other Estimates 01/17/25 Ultrasound #1 24w 5d Expected Delivery Route/Plan Labor Preferences- CB/BF classes: [] labor support person: [] labor intervention preferences: [] pain management options preferred: [] cut cord/dad catch: [] : [] PP control planned: [] discussed possible routes of delivery and associated risks: [] special requests: [] Specific Issue/Plans Covid status: [] Flu vaccine: [] Tdap vaccine: [] Rhogam: [] LARC form signed: [] Problem list reviewed and updated with the most current plan of care details and appropriate ordersplaced. Relevant counseling for the gestational age provided. Continue routine care and follow up unless otherwise noted in visit notes/problem list details Initial Weight: 254 lb Date -?-?-?-?-?-?-?-?-?-?-?-?- EGA Weight BP Urine Prot -?-?-?-?-?-?-?-?-?-?-?-?- Glucose FHR FuHt Pres Dilation -?-?-?-?-?-?-?-?-?-?-?-?- Effaced St Visit Note 06/09/24 -?-?-?-?-?-?-?-?-?-?-?-?- 8w 5d 254 lb 8 oz (+8 oz) 125/80 -?-?-?-?-?-?-?-?-?-?-?-?- 178 -?-?-?-?-?-?-?-?-?-?-?-?- KW- CRL cons wit h dates. Accepts NIPT will get drawn at next appt due to BMI. discussed POC with CHTN. will start asa at 12 weeks 07/06/24 -?-?-?-?-?-?-?-?-?-?-?-?- 12w 4d 251 lb 8 oz (-2 lb 8 oz) 123/85 -?-?-?-?-?-?-?-?-?-?-?-?- 168 -?-?-?-?-?-?-?-?-?-?-?-?- SM- no vb crmapi ng will get new ob labs today 08/02/24 -?-?-?-?-?-?-?-?-?-?-?-?- 16w 3d 266 lb (+12 lb) 118/75 Negative -?-?-?-?-?-?-?-?-?-?-?-?- Negative 145 -?-?-?-?-?-?-?-?-?-?-?-?- JV- planning to stop metformin and do glucola at 26-28 weeks. continue baby asa and metoprolol. plan twice weekly testing between 32-34 weeks, deliver at 37-38 weeks. JV- planning to stop metform in and do glucola at 26-28 weeks. continue baby asa and metoprolol. plan twice weekly testing between 32-34 weeks, deliver at 37-38 weeks.prefers belt dresser delivery if possible! JV- planning to stop metform in and do glucola at 26-28 weeks. continue baby asa and metoprolol. plan weekly testing @ 32 weeks, deliver at 37-38 weeks.prefers belt dresser delivery if possible! 09/01/24 -?-?-?-?-?-?-?-?-?-?-?-?- 20w 5d 259 lb 2 oz (+5 lb 2 oz) 119/86 Negative -?-?-?-?-?-?-?-?-?-?-?-?- Negative 150 -?-?-?-?-?-?-?-?-?-?-?-?- JV- no lof, vagi nal bleeding, or dec fm. normal anatomy with exception of decreased views of heart 10/02/24 -?-?-?-?-?-?-?-?-?-?-?-?- 25w 1d 265 lb 6 oz (+11 lb 6 oz) 124/83 Negative -?-?-?-?-?-?-?-?-?-?-?-?- Negative 145 -?-?-?-?-?-?-?-?-?-?-?-?- KW- no vb/lof/ct x. good fm. glucose discussed. KW- no vb/lof/ctx. good fm. glucose discussed. reviewed [place] ACOG First Trimester First Trimester: Discussed Second Trimester Second Trimester: Signs and Symptoms of Labor, Selecting a care provider, Reproductive Life Planning & Contreception, Care Planning, Depression/Anxiety and Intimate Partner Violence; Discussed Tobacco Cessation Third Trimester Third Trimester: Pain Management Plans, Labor support person(s), Immediate Larc, Signs and Symptoms of Preeclampsia, Feeding No , Education and Family Medical Leave or Disability Forms ROS Const Reports system reviewed and no additional complaints, except as documented Eyes Reports system reviewed and no additional complaints, except as documented ENT Reports system reviewed and no additional complaints, except as documented Card Reports system reviewed and no additional complaints, except as documented Resp Reports system reviewed and no additional complaints, except as documented GI Reports system reviewed and no additional complaints, except as documented, Denies nausea and Denies vomiting Reports system reviewed and no additional complaints, except as documented Musc Reports system reviewed and no additional complaints, except as documented Skin/Breast Reports system reviewed and no additional complaints, except as documented Neuro Yes system reviewed and no additional complaints, except as documented Psych Reports system reviewed and no additional complaints, except as documented Endo Reports system reviewed and no additional complaints, except as documented Michael/Lymph Reports system reviewed and no additional complaints, except as documented Aller/Immun Reports system reviewed and no additional complaints, except as documented Exam Const General: cooperative, healthy appearing and no acute distress Orientation: alert, awake and oriented x3 Neck Neck: normal visual inspection and full ROM Resp Effort & Inspection: normal respiratory effort, able to speak in complete sentences and symmetric chest movement GI Inspection: normal to inspection Palpation: soft and other Other: gravid Skin General: no rashes or lesions noted Neuro General: patient alert, patient awake and patient oriented x3 Cognition: normal cognition Speech: speech normal Gait: normal gait Motor: muscle tone normal throughout Extrem General: normal to inspection and full ROM Psych Appearance: grossly normal Mental Status: mental status grossly normal Mood: congruent mood Affect: normal affect Speech and Movement: speech and movement normal Attitude: cooperative Thought Process: normal Thought Content: normal Judgment: judgment good Results POC Urinalysis 2 Dip (Clinic) Office Urine Glucose Negative Last Edit by Betsy Espinosa on 10/02/24 09:52 Office Urine Protein Negative Last Edit by Betsy Espinosa on 10/02/24 09:52 Coding Level of Care Code OB Routine Diagnoses Polycystic disease, ovaries E28.2 Obesity affecting O99.210 AMA (advanced maternal age) multigravida 35+ O09.529 Supervision of high-risk O09.90 25 weeks gestation of Z3A.25 Weeks of gestation: 25 weeks Herpes simplex type 2 infection B00.9 Hypertension I10 Acute thoracic myofascial strain S29.019A Depression F32.A Assessment and Plan Assessment and Plan (1) Polycystic disease, ovaries: Status: Acute Comment: counseled regarding continuing vs stopping metformin, patient continued last with good outcomes wants to continue this (2) Obesity affecting : Status: Acute Comment: BMI 45.4; BPPs at 34 weeks& needs anesthesia consult HgBA1C ordered w/NOB (3) AMA (advanced maternal age) multigravida 35+: Status: Acute Comment: growth at 36 (4) Supervision of high-risk : Status: Acute Comment: PRR, , SLIME 01/14/25, PC: Chad, PC: Parth (5) : Status: Acute Qualifiers: Weeks of gestation: 25 weeks Qualified Code(s): Z3A.25 - 25 weeks gestation of Comment: accept NIPT- low risk, male (6) Herpes simplex type 2 infection: Status: Acute Comment: Valtrax PRN (7) Hypertension: Status: Chronic Comment: on Metoprolol - weekly bpp's starting 32 weeks. deliver 37-38 weeks. (8) Acute thoracic myofascial strain: Status: Acute (9) Depression: Status: Acute Comment: Lexapro Orders: Orders POC Urinalysis 2 Dip (Clinic) Today O09.90 - Supervision of high risk , unspecified, unspecified trimester, O99.210 - Obesity complicating , unspecified trimester, Z3A.25 - 25 weeksgestation of CBC W/Diff, Automated Today O09.90 - Supervision of high risk , unspecified, unspecified trimester, O99.210 - Obesity complicating , unspecified trimester, Z3A.25 - 25 weeks gestation of Glucose Challenge Gest 1H 50g Today O09.90 - Supervision of high risk , unspecified, unspecified trimester, O99.210 - Obesity complicating , unspecified trimester, Z13.1 - Encounterfor screening for diabetes mellitus, Z3A.25 - 25 weeks gestation of HIV Today O09.90 - Supervision of high risk , unspecified, unspecified trimester, O99.210 - Obesity complicating , unspecified trimester, Z3A.25 - 25 weeks gestation of Syphilis Antibodies Today O09.90 - Supervision of high risk , unspecified, unspecified trimester, O99.210 - Obesity complicating , unspecified trimester, Z3A.25 - 25 weeks gestationof Plan Details Additional Comments: ACOG trimester education reviewed and updated. see problem list details for updated plan management information and see below for orders placed atthis visit. [place] appropriate handout given. 10/02/24 1002 s AMIE> Date _ Carmen Arreguin Signature: Date (if applicable) CC: ~ [facility]05-28-2025 [facility] [address] [place] [address], [address] [place] [address] OFFICE VISIT Date of Service: 08/02/24 MR#: [id number] Acct: [id number] Name: SHU GASPAR Rep #: [id number] : 1990 Provider: Dr. Juana Song DO Age/Sex: 33/F Location: [facility] Status: Signed Intake Vital Signs 06/09/24 13:11 07/06/24 15:06 08/02/24 11:02 08/02/24 11:04 Height 5 ft 2 in 5 ft 2 in 5 ft 2 in 5 ft 2 in Weight: 266 lb BMI 48.6 BP 118/75 Intake Visit Reasons: 16wk ob 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 Is patient in pain?: No Allergies No Known Allergies Allergy (Verified 08/02/24 11:02) Medications ?Medication ?Instructions ?Recorded ?Confirmed ?Type qqqxxkjm-vdu-Bn-FA 1 mg tab PO 01/11/2208/02 History tablet metformin 500 mg tablet mg PO 02/14/24 05/28/25 Hist ory escitalopram oxalate 20 mg tablet 20 mg PO QDAY 08/02/24 History (Lexapro) metoprolol succinate 100 mg 100 mg PO BID 03/17/24 History tablet,extended release 24 hr Last Menstrual Period: 04/09/24 Zika: Zika virus screening: Negative : No PFSH PFSH Medical History (Updated 08/02/24 @ 11:[address] Anh Song, DO) Polycystic disease, ovaries HPV test positive Herpes simplex type 2 infection Hypertension Gallstone Acute thoracic myofascial strain Depression Migraine Surgical History History of colposcopy History of laparoscopic cholecystectomy Family History Brother Alcoholism Colon cancer Myocardial infarction, Onset Age: 44 Mother Depression Father Diabetes Hypertension Grandmother CVA (cerebral vascular accident) Grandmother Thyroid disorder Uterine cancer Other Cancer Social History adopted: No household members: spouse and children housing: condominium number of children: 1 current occupational status: employed 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: No pets and animals: Yes ( taking care of litterbox) pets and animals: cat(s) history of recent travel: No sexually active: Yes Smoking Status: Never smoker second hand exposure: No alcohol intake: never substance use type: does not use well-balanced diet: about half the time caffeine: Yes Type: coffee Number of servings: 1 eating out: 1-3 times/week during the past year weight has: remained stable what type of physical activity do you participate in: none baylee/uatsdin: None seatbelt use: always do you feel safe at home: Yes additional social history: : Parth Leggett History 2 Elective abortions Hx Para 1 Spontaneous abortions Hx # Term Pregnancies 1 Ectopic pregnancies Hx # Pregnancies Multiple births # of living children 1 Past Pregnancies Del. Date Name GA/Weeks Outcome Route Bth Weight Infant Gen Labor Lgth Anesthesia Del Locatn Provider FOB 01/05/22 Payette 39 live - full term 7lbs 8oz Male e pidural [facility] Delivery Date: 01/05/22 Last Updated by: Andressa Schmitz RN HTN during labor..(no pre-e but now has chronic HTN) HPI 16wk ob Details: SHU GASPAR is a 33 year old who presents for routine OB visit. OB Visit SLIME Calculator Estimated Delivery Date Method Current WG Current Estimate 01/14/25 LMP (Certain) 16w 3d Other Estimates 01/17/25 Ultrasound #1 16w 0d Expected Delivery Route/Plan Labor Preferences- CB/BF classes: [] labor support person: [] labor intervention preferences: [] pain management options preferred: [] cut cord/dad catch: [] : [] PP control planned: [] discussed possible routes of delivery and associated risks: [] special requests: [] Specific Issue/Plans Covid status: [] Flu vaccine: [] Tdap vaccine: [] Rhogam: [] LARC form signed: [] Problem list reviewed and updated with the most current plan of care details and appropriate ordersplaced. Relevant counseling for the gestational age provided. Continue routine care and follow up unless otherwise noted in visit notes/problem list details Initial Weight: 254 lb Date -?-?-?-?-?-?-?-?-?-?-?-?- EGA Weight BP Urine Prot -?-?-?-?-?-?-?-?-?-?-?-?- Glucose FHR FuHt Pres Dilation -?-?-?-?-?-?-?-?-?-?-?-?- Effaced St Visit Note 06/09/24 -?-?-?-?-?-?-?-?-?-?-?-?- 8w 5d 254 lb 8 oz (+8 oz) 125/80 -?-?-?-?-?-?-?-?-?-?-?-?- 178 -?-?-?-?-?-?-?-?-?-?-?-?- KW- CRL cons wit h dates. Accepts NIPT will get drawn at next appt due to BMI. discussed POC with CHTN. will start asa at 12 weeks 07/06/24 -?-?-?-?-?-?-?-?-?-?-?-?- 12w 4d 251 lb 8 oz (-2 lb 8 oz) 123/85 -?-?-?-?-?-?-?-?-?-?-?-?- 168 -?-?-?-?-?-?-?-?-?-?--?-?- SM- no vb crmapi ng will get new ob labs today 08/02/24 -?-?-?-?-?-?-?-?-?-?-?-?- 16w 3d 266 lb (+12 lb) 118/75 -?-?-?-?-?-?-?-?-?-?-?-?- 145 -?-?-?-?-?-?-?-?-?-?-?-?- JV- planning to stop metformin and do glucola at 26-28 weeks. continue baby asa and metoprolol. plan twice weekly testing between 32-34 weeks, deliver at 37-38 weeks. JV- planning to stop metform in and do glucola at 26-28 weeks. continue baby asa and metoprolol. plan twice weekly testing between 32-34 weeks, deliver at 37-38 weeks.prefers belt dresser delivery if possible! JV- planning to stop metform in and do glucola at 26-28 weeks. continue baby asa and metoprolol. plan weekly testing @ 32 weeks, deliver at 37-38 weeks.prefers belt dresser delivery if possible! ACOG First Trimester First Trimester: Discussed Second Trimester Second Trimester: Signs and Symptoms of Labor, Selecting a care provider, Reproductive Life Planning & Contreception, Care Planning, Depression/Anxiety and Intimate Partner Violence; Discussed Tobacco Cessation Third Trimester Third Trimester: Pain Management Plans, Labor support person(s), Immediate Larc, Signs and Symptoms of Preeclampsia, Infant Feeding No , Education and Family Medical Leave or Disability Forms Coding Level of Care Code OB Routine Diagnoses Polycystic disease, ovaries E28.2 Obesity affecting O99.210 AMA (advanced maternal age) multigravida 35+ O09.529 Supervision of high-risk O09.90 16 weeks gestation of Z3A.16 Weeks of gestation: 16 weeks Herpes simplex type 2 infection B00.9 Hypertension I10 Acute thoracic myofascial strain S29.019A Depression F32.A Assessment and Plan Assessment and Plan (1) Polycystic disease, ovaries: Status: Acute Comment: counseled regarding continuing vs stopping metformin, patient continued last with good outcomes wants to continue this (2) Obesity affecting : Status: Acute Comment: BMI 45.4; BPPs at 34 weeks& needs anesthesia consult HgBA1C ordered w/NOB (3) AMA (advanced maternal age) multigravida 35+: Status: Acute Comment: growth at 36 (4) Supervision of high-risk : Status: Acute Comment: PRR, , SLIME 01/14/25, PC: Chad, PC: Parth (5) : Status: Acute Qualifiers: Weeks of gestation: 16 weeks Qualified Code(s): Z3A.16 - 16 weeks gestation of Comment: accept NIPT- low risk, male (6) Herpes simplex type 2 infection: Status: Acute Comment: Valtrax PRN (7) Hypertension: Status: Chronic Comment: on Metoprolol - weekly bpp's starting 32 weeks. deliver 37-38 weeks. (8) Acute thoracic myofascial strain: Status: Acute (9) Depression: Status: Acute Comment: Lai 08/02/24 1133 e Brittany DO> Date _ Anh Song DO [facility] Signature: Date (if applicable) CC: ~ [facility]05-01-2025 Evaluation note* Diagnosis Onset Date Resolution Status Admit Date Acute thoracic myofascial strain acute July 06, 2024 2: 57pm AMA (advanced maternal age) multigravida 35+ acute July 06, 2024 2 :57pm Depression acute July 06, 2024 2:57pm Herpes simplex type 2 infection acut e July 06, 2024 2:57pm Obesity affecting acute July 06, 2024 2:57pm acute July 06, 2024 2:57pm Supervision of high-risk acute July 06, 2024 2: 57pm Hypertension chronic July 06 2:57pm Acute thoracic myofascial strain acute August 02, 2024 1 0:59am AMA (advanced maternal age) multigravida 35+ acute August 02, 2024 10:59am Depression acute August 02, 2024 10:59am Herpes simplex type 2 infection acut e August 02, 2024 10:59am Obesity affecting acute August 02, 2024 10:59am Polycystic disease, ovaries acute August 02, 2024 10:59am acute August 02, 2024 10:59am Supervision of high-risk acute August 02, 2024 1 0:59am Hypertension chronic August 02 10:59am Acute thoracic myofascial strain acute September 01, 2024 2:51pm AMA (advanced maternal age) multigravida 35+ acute September 01, 2024 2:51pm Depression acute September 01 2:51pm Herpes simplex type 2 infection acut e September 01, 2024 2:51pm Obesity affecting acute September 01, 2024 2:51pm Polycystic disease, ovaries acute September 01, 2024 2:51pm acute September 01 2:51pm Supervision of high-risk acute September 01, 2024 2:51pm Hypertension chronic September 01, 2 025 2:51pm Acute thoracic myofascial strain acute October 02, 2024 9:38am AMA (advanced maternal age) multigravida 35+ acute October 02, 2024 9:38am Depression acute October 02 9:38am Herpes simplex type 2 infection acut e October 02, 2024 9:38am Obesity affecting acute October 02, 2024 9:38am Polycystic disease, ovaries acute October 02, 2024 9:38am acute October 02 9:38am Supervision of high-risk acute October 02, 2024 9:38am Hypertension chronic October 02, 2 025 9:38am Acute thoracic myofascial strain acute October 30 1:40pm AMA (advanced maternal age) multigravida 35+ acute October 30 1:40pm Depression acute October 30, 2 025 1:40pm Herpes simplex type 2 infection acut e October 30, 2024 1:40pm Obesity affecting acute October 30, 2024 1:40pm Polycystic disease, ovaries acute October 30, 2024 1:40pm acute October 30, 2 025 1:40pm Supervision of high-risk acute October 30 1:40pm Hypertension chronic October 30, 2024 1:40pm [facility] Work Phone: 1(138) 114-511004-04-2025 Evaluation note* Diagnosis Onset Date Resolution Status Admit Date Acute thoracic myofascial strain acu te June 09, 2024 1:05pm AMA (advanced maternal age) multigravida 35+ acute June 09, 2024 1:05pm Depression acute June 09 1:05pm Herpes simplex type 2 infection acut e June 09, 2024 1:05pm Obesity affecting acute June 09, 2024 1:05pm acute June 09 1:05pm Supervision of high-risk acute June 09, 2024 1:05pm Hypertension chronic June 09, 2 025 1:05pm Acute thoracic myofascial strain acu te July 06, 2024 2:57pm AMA (advanced maternal age) multigravida 35+ acute July 06, 2024 2 :57pm Depression acute July 06, 2024 2:57pm Herpes simplex type 2 infection acut e July 06, 2024 2:57pm Obesity affecting acute July 06, 2024 2:57pm acute July 06, 2024 2:57pm Supervision of high-risk acute July 06, 2024 2: 57pm Hypertension chronic July 06 2:57pm Acute thoracic myofascial strain acu te August 02, 2024 10:59am AMA (advanced maternal age) multigravida 35+ acute August 02, 2024 10:59am Depression acute August 02, 2024 10:59am Herpes simplex type 2 infection acut e August 02, 2024 10:59am Obesity affecting acute August 02, 2024 10:59am Polycystic disease, ovaries acute August 02, 2024 10:59am acute August 02, 2024 10:59am Supervision of high-risk acute August 02, 2024 1 0:59am Hypertension chronic August 02 10:59am Acute thoracic myofascial strain acu te September 01, 2024 2:51pm AMA (advanced maternal age) multigravida 35+ acute September 01, 2024 2:51pm Depression acute September 01 2:51pm Herpes simplex type 2 infection acut e September 01, 2024 2:51pm Obesity affecting acute September 01, 2024 2:51pm Polycystic disease, ovaries acute September 01, 2024 2:51pm acute September 01 2:51pm Supervision of high-risk acute September 01, 2024 2:51pm Hypertension chronic September 01, 2 025 2:51pm [facility] Work Phone: 1(216) 460-101304-04-2025 Evaluation note* Diagnosis Onset Date Resolution Status Admit Date Acute thoracic myofascial strain acu te June 09, 2024 1:05pm AMA (advanced maternal age) multigravida 35+ acute June 09, 2024 1:05pm Depression acute June 09 1:05pm Herpes simplex type 2 infection acut e June 09, 2024 1:05pm Obesity affecting acute June 09, 2024 1:05pm acute June 09 1:05pm Supervision of high-risk acute June 09, 2024 1:05pm Hypertension chronic June 09, 2 025 1:05pm Acute thoracic myofascial strain acu te July 06, 2024 2:57pm AMA (advanced maternal age) multigravida 35+ acute July 06, 2024 2 :57pm Depression acute July 06, 2024 2:57pm Herpes simplex type 2 infection acut e July 06, 2024 2:57pm Obesity affecting acute July 06, 2024 2:57pm acute July 06, 2024 2:57pm Supervision of high-risk acute July 06, 2024 2: 57pm Hypertension chronic July 06 2:57pm Acute thoracic myofascial strain acu te August 02, 2024 10:59am AMA (advanced maternal age) multigravida 35+ acute August 02, 2024 10:59am Depression acute August 02, 2024 10:59am Herpes simplex type 2 infection acut e August 02, 2024 10:59am Obesity affecting acute August 02, 2024 10:59am Polycystic disease, ovaries acute August 02, 2024 10:59am acute August 02, 2024 10:59am Supervision of high-risk acute August 02, 2024 1 0:59am Hypertension chronic August 02 10:59am Acute thoracic myofascial strain acu te September 01, 2024 2:51pm AMA (advanced maternal age) multigravida 35+ acute September 01, 2024 2:51pm Depression acute September 01 2:51pm Herpes simplex type 2 infection acut e September 01, 2024 2:51pm Obesity affecting acute September 01, 2024 2:51pm Polycystic disease, ovaries acute September 01, 2024 2:51pm acute September 01 2:51pm Supervision of high-risk acute September 01, 2024 2:51pm Hypertension chronic September 01, 2 025 2:51pm Acute thoracic myofascial strain acu te October 02, 2024 9:38am AMA (advanced maternal age) multigravida 35+ acute October 02, 2024 9:38am Depression acute October 02 9:38am Herpes simplex type 2 infection acut e October 02, 2024 9:38am Obesity affecting acute October 02, 2024 9:38am Polycystic disease, ovaries acute October 02, 2024 9:38am acute October 02 9:38am Supervision of high-risk acute October 02, 2024 9:38am Hypertension chronic October 02, 2 025 9:38am [facility] Work Phone: 1(156) 919-386902-26-2025 NotePap Smear Specimen AdequacyFebruary 2024 5:33pmComment.Satisfactory for evaluation. Endocervical and/or squamous metaplasticcells (endocervical component)are present.[facility] A#[id number] Flower HospitalComment on above:Satisfactory for evaluation. Endocervical and/or squamous metaplasticcells (endocervical component)are present.05-03-2024 NotePap Smear Specimen AdequacyFebruary 2024 5:33pmComment.Satisfactory for evaluation. Endocervical and/or squamous metaplasticcells (endocervical component)are present.[facility] A#[id number] Flower HospitalComment on above:Satisfactory for evaluation. Endocervical and/or squamous metaplasticcells (endocervical component)are present.05-03-2024 Evaluation note* Diagnosis Onset Date Resolution Status Admit Date Encounter for routine gynecological examination noneactive Februa 2024 11:53am [facility] Work Phone: 1(878) 883-792902-26-2025 Evaluation note* Diagnosis Onset Date Resolution Status Admit Date Encounter for routine gynecological examination noneactive Februa 2024 11:53am Acute thoracic myofascial strain acute June 09, 2024 1:05pm AMA (advanced maternal age) multigravida 35+ acute June 09, 2024 1:05pm Depression acute June 09 1:05pm Herpes simplex type 2 infection acute June 09, 2024 1:05pm Obesity affecting acute June 09, 2024 1:05pm acute June 09 1:05pm Supervision of high-risk acute June 09, 2024 1:05pm Hypertension chronic June 09, 2 025 1:05pm [facility] Work Phone: 1(432) 594-109102-26-2025 Evaluation note* Diagnosis Onset Date Resolution Status Admit Date Encounter for routine gynecological examination noneactive Februa 2024 11:53am Acute thoracic myofascial strain acute June 09, 2024 1:05pm AMA (advanced maternal age) multigravida 35+ acute June 09, 2024 1:05pm Depression acute June 09 1:05pm Herpes simplex type 2 infection acute June 09, 2024 1:05pm Obesity affecting acute June 09, 2024 1:05pm acute June 09 1:05pm Supervision of high-risk acute June 09, 2024 1:05pm Hypertension chronic June 09, 2 025 1:05pm Acute thoracic myofascial strain acute July 06, 2024 2: 57pm AMA (advanced maternal age) multigravida 35+ acute July 06, 2024 2 :57pm Depression acute July 06, 2024 2:57pm Herpes simplex type 2 infection acute July 06, 2024 2: 57pm Obesity affecting acute July 06, 2024 2:57pm acute July 06, 2024 2:57pm Supervision of high-risk acute July 06, 2024 2: 57pm Hypertension chronic July 06 2:57pm [facility] Work Phone: 1(772) 310-795302-26-2025 Evaluation note* Diagnosis Onset Date Resolution Status Admit Date Encounter for routine gynecological examination noneactive Februa 2024 11:53am Acute thoracic myofascial strain acute June 09, 2024 1:05pm AMA (advanced maternal age) multigravida 35+ acute June 09, 2024 1:05pm Depression acute June 09 1:05pm Herpes simplex type 2 infection acute June 09, 2024 1:05pm Obesity affecting acute June 09, 2024 1:05pm acute June 09 1:05pm Supervision of high-risk acute June 09, 2024 1:05pm Hypertension chronic June 09, 2 025 1:05pm Acute thoracic myofascial strain acute July 06, 2024 2: 57pm AMA (advanced maternal age) multigravida 35+ acute July 06, 2024 2 :57pm Depression acute July 06, 2024 2:57pm Herpes simplex type 2 infection acute July 06, 2024 2: 57pm Obesity affecting acute July 06, 2024 2:57pm acute July 06, 2024 2:57pm Supervision of high-risk acute July 06, 2024 2: 57pm Hypertension chronic July 06 2:57pm Acute thoracic myofascial strain acute August 02, 2024 1 0:59am AMA (advanced maternal age) multigravida 35+ acute August 02, 2024 10:59am Depression acute August 02, 2024 10:59am Herpes simplex type 2 infection acute August 02, 2024 1 0:59am Obesity affecting acute August 02, 2024 10:59am Polycystic disease, ovaries acute August 02, 2024 10:59am acute August 02, 2024 10:59am Supervision of high-risk acute August 02, 2024 1 0:59am Hypertension chronic August 02 10:59am [facility] Work Phone: 1(858) 245-737105-31-2024 Hospital Discharge instructions Patient Education 08/05/2023 22:03:47 Shortness of Breath (Dyspnea) Shortness of Breath (Dyspnea) Shortness of breath is the feeling that you can't catch your breath or get enough air. It is also known as dyspnea. Dyspnea can be caused by many different conditions. They include: Acute asthma attack Worsening of chronic lung diseases such as chronic bronchitis and emphysema Heart failure. This is when weak heart muscle allows extra fluid to collect in the lungs. Panic attacks or anxiety. Fear can cause rapid breathing (hyperventilation). Pneumonia, or an infection in the lung tissue Exposure to toxic substances, fumes, smoke, or certain medicines Blood clot in the lung (pulmonary embolism). This is often from a piece of blood clot in a deep vein of the leg (deep vein thrombosis) that breaks off and travels to the lungs. Heart attack or heart-related chest pain (angina) Anemia Collapsed lung (pneumothorax) Dehydration Based on your visit today, the exact cause of your shortness of breath is not certain. Your tests don t show any of the serious causes of dyspnea. You may need other tests to find out if you have a serious problem. It s important to watch for any new symptoms or symptoms that get worse. Follow up with your healthcare provider as directed. Home care Follow these tips to take care of yourself at home: When your symptoms are better, go back to your usual activities. If you smoke, you should stop. Join a quit-smoking program or ask your healthcare provider for help. Eat a healthy diet and get plenty of sleep. Get regular exercise. Talk with your healthcare provider before starting to exercise, especially ifyou have other medical problems. Cut down on the amount of caffeine and stimulants you consume. Follow-up care Follow up with your healthcare provider, or as advised. If tests were done, you will be told if your treatment needs to be changed. You can call as directed for the results. If an X-ray was taken, a specialist will review it. You will be notified of any new findings that may affect your care. Call 911 Shortness of breath may be a sign of a serious medical problem. For example, it may be a problem with your heart or lungs. Call 911 if you have worsening shortness of breath or trouble breathing, especially with any of the symptoms below: Confusion or difficulty waking Fainting or loss of consciousness. Fast or irregular heartbeat Coughing up blood Pain in your chest, arm, shoulder, neck, or upper back Sweating When to seek medical advice Call your healthcare provider right away if any of these occur: Slight shortness of breath or wheezing Redness, pain or swelling in your leg, arm, or other body area Swelling in both legs or ankles Fast weight gain Dizziness or weakness Fever of 100.4 F (38 C) or higher, or as directed by your healthcare provider [id number] [employer]. [address] [place] [address]. All rights reserved. This information is not intended as a substitute for professional medical care. Always follow yourhealthcare professional's instructions. Follow Up Care 08/05/2023 15:51:25 With:Follow up with primary care provider Address:Unknown When:2-4 days [facility] 05-30-2024 Note Discharge Instructions Thank you for allowing [facility] to assist you with your healthcare needs. The following is importantdischarge information regarding your hospital visit. Diagnosis from Today's Visit Dyspnea What to Do Next Instructions from Your Care Team Discharge Return to Work, School, or Sports (Return to Work, School, or Sports) - Ordered -- 08/07/23, May return to: work, 08/05/23 22:03:00 EDT Post Acute Orders No qualifying data available. You Need to Schedule the Following Appointments Follow Up with Follow up with primary care provider When:Within 2-4 days Allergies NKA Medications Please ask your primary doctor or pharmacist before taking any other medication not listed, including over the counter drugs, herbal medications, vitamins and or supplements as they may interact withyour home medications. What When Instructions Last Dose Unchanged phentermine (phentermine 37.5 mg oral capsule) take 1 capsule by mouth every morning BEFORE MEALS Please take this list to your next doctor s visit. Bring all medications you take, including over the counter medications, herbals and other supplements with you to your doctor s visit. Patients and families are reminded to discard old lists and to update any records with all medication providers or retail pharmacies. Education Materials Shortness of Breath (Dyspnea) Shortness of breath is the feeling that you can't catch your breath or get enough air. It is also known as dyspnea. Dyspnea can be caused by many different conditions. They include: Acute asthma attack Worsening of chronic lung diseases such as chronic bronchitis and emphysema Heart failure. This is when weak heart muscle allows extra fluid to collect in the lungs. Panic attacks or anxiety. Fear can cause rapid breathing (hyperventilation). Pneumonia, or an infection in the lung tissue Exposure to toxic substances, fumes, smoke, or certain medicines Blood clot in the lung (pulmonary embolism). This is often from a piece of blood clot in a deep vein of the leg (deep vein thrombosis) that breaks off and travels to the lungs. Heart attack or heart-related chest pain (angina) Anemia Collapsed lung (pneumothorax) Dehydration Based on your visit today, the exact cause of your shortness of breath is not certain. Your tests don t show any of the serious causes of dyspnea. You may need other tests to find out if you have a serious problem. It s important to watch for any new symptoms or symptoms that get worse. Follow up with your healthcare provider as directed. Home care Follow these tips to take care of yourself at home: When your symptoms are better, go back to your usual activities. If you smoke, you should stop. Join a quit-smoking program or ask your healthcare provider for help. Eat a healthy diet and get plenty of sleep. Get regular exercise. Talk with your healthcare provider before starting to exercise, especially ifyou have other medical problems. Cut down on the amount of caffeine and stimulants you consume. Follow-up care Follow up with your healthcare provider, or as advised. If tests were done, you will be told if your treatment needs to be changed. You can call as directed for the results. If an X-ray was taken, a specialist will review it. You will be notified of any new findings that may affect your care. Call 911 Shortness of breath may be a sign of a serious medical problem. For example, it may be a problem with your heart or lungs. Call 911 if you have worsening shortness of breath or trouble breathing, especially with any of the symptoms below: Confusion or difficulty waking Fainting or loss of consciousness. Fast or irregular heartbeat Coughing up blood Pain in your chest, arm, shoulder, neck, or upper back Sweating When to seek medical advice Call your healthcare provider right away if any of these occur: Slight shortness of breath or wheezing Redness, pain or swelling in your leg, arm, or other body area Swelling in both legs or ankles Fast weight gain Dizziness or weakness Fever of 100.4 F (38 C) or higher, or as directed by your healthcare provider [phone] [employer]. [address] [place] [address]. All rights reserved. This information is not intended as a substitute for professional medical care. Always follow yourhealthcare professional's instructions. Additional Information VACCINATE! IT SAVES LIVES! Members of the community who have not yet received the COVID-19 vaccine and would like to receive it can visit one of [facility] vaccine clinics. There are many vaccine clinic locations within the [facility]. For locations and available times, please visit [email or web address].[place].gov/. It is important to note that some COVID mobile vaccine clinics are held outdoors and may be canceled in rainy or stormy conditions. To learn more about pediatric vaccinations (ages 5-11), we invite you to visit the [facility] webpage. https://[email or web address]/pages/1681-Pjqam-[email or web address]-Cmkkr-Cxk stions.htmlTo learn more about the COVID-19 vaccine, we invite you to visit the CDC website for a list of frequently asked questions. https://www.cdc.gov/coronavirus/2019-ncov/vaccines/faq.html [employer] Patient Portal Access Instructions: Stay connected with your healthcare team and access your personal medical information anytime with the [employer] Patient Portal. If you would like a full copy of your medical records please contact the [facility] Medical Records Department Wednesday through Wednesday between 8a.m. and 4:30p.m. Please follow the directions below to access the portal: 1.Access the email account you provided upon registration to the hospital.2.Look for an invitation email from [facility].3.Open the email and access the invitation link: Accept Invitation to [employer]4.Fill in the required [place] to create your account. Sign into [email or web address] with your username and password that you created in the above steps to stay up to date. You can then view a summary of results, a summary of your visits, and the ability to download your summaries to your computer or send the information securely to a physician. Remember that your healthcare information is confidential, so carefully consider who you will allow to register on the [employer] Patient Portal for access to your information. You can also access the [employer] Patient Portal on the [employer] nehemias. Simply click on Health Records under Teachable and then click on the anywayanyday logo. HOW TO SAFELY DISPOSE OF PRESCRIPTION MEDICATIONS Please use one of the following methods to safely dispose of your unused medications. 1.Use a drug disposal kit: the drug disposal pouch allows you to safely discard your old and unuseddrugs. Ask your nurse to give you one when you are discharged.2.Visit a local take-back location: Many local pharmacies and police departments have programs that collect old and unwanted prescriptiondrugs. Call your local pharmacy or go to http://[employer].SIMI/3C8Rm4i to find one close to you.3.Make use of household items: Use cat litter or old coffee grounds to dispose medications if other options arenot available. Mix your drugs with these household products, seal them in an airtight container andthrow it into the garbage. Call [facility]: [phone] to be sure your drugs can be disposed of in this way. Some medicines may require a different approach.4.Never flush your medications down the toilet. IF YOU HAVE BEEN PRESCRIBED AN OPIOIDS FOR PAIN If you have been prescribed an opioid (such as hydrocodone, oxycodone or morphine), it is critical to understand the possible side effects and risks of opioid pain medications. Even when taken as directed, opioids can have several side effects including: Tolerance, meaning you might need to take more of a medication for the same pain relief. Nausea, vomiting and/or constipation. Sleepiness, dizziness, dry mouth, confusion, depression or itching. Physical dependence, meaning you have withdrawal symptoms when a medication is stopped ? this can develop within a few days. KNOW YOUR RESPONSIBILITIES It is important to know exactly how much and how often to take the opioid pain medications you are prescribed. Never take opioids in higher amounts or more often than prescribed. Do not combine opioids with alcohol or other drugs that cause drowsiness, such as benzodiazepines, also known as benzos,including diazepam and alprazolam, muscle relaxants or sleep aids. Never sell or share prescriptionopioids. This is illegal. Store opioids in a secure place and out of reach of others (including children, family, friends and visitors). The last page(s) of this document has been signed and retained as a CHART COPY Signatures Patient Education Materials Shortness of Breath (Dyspnea) Medication Leaflets My discharge plan and instructions have been reviewed and explained to me and I,SHU GASPAR understand my current condition and have read and understand these discharge instructions. I have received a written copy of the plan/instructions. If I have questions, I am aware that I should contact my doctor. 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 Multiplanar reformatted images are provided for review. MIP images are provided for review. Automated exposure control, iterative reconstruction, and/or weight based adjustment of the mA/kV was utilized to reduce the radiation dose to as low as reasonably achievable. COMPARISON: None HISTORY: ORDERING SYSTEM PROVIDED HISTORY: Reason for Exam: SOB x3-7 days, increasing. chest pain; suspect PE FINDINGS: No acute osseous abnormality. No acute soft tissue abnormality. The included images of the upper abdomen are noncontributory. The thyroid is unremarkable. No pathologically enlarged supraclavicular, axillary, mediastinal or hilar lymph nodes. The heart is normal size. No pericardial effusion. The thoracic aorta is normal caliber. The pulmonary arteries are adequately opacified. No pleural effusion or pneumothorax. The trachea and mainstem bronchi are patent. The lungs are clear. No suspicious pulmonary nodule. IMPRESSION: No pulmonary embolism or other acute process. I have personally reviewed the images of this examination and agree with the resident's findings and interpretation. Interpreted by: Gt Krishna Preliminary Report By: Phi Juárez Electronically signed By Gt Krishna Dictated Date: 08/05/2023 7:11:50 PM Prelim Date: 08/05/2023 9:17:05 PM Sign Date: 08/05/2023 9:17:05 PM Ordering Provider: DARIUS [facility]05-30-2024 Note ORIGINAL EXAMINATION: ONE XRAY VIEW OF THE CHEST08/05/2023 4:53 pm COMPARISON: None HISTORY: ORDERING SYSTEM PROVIDED HISTORY: Reason for Exam: SOB/cough/fever FINDINGS: Cardiomediastinal contours are within normal limits. No focal consolidation or pulmonary edema. No pleural effusion or visible pneumothorax. The bony thorax appears intact. IMPRESSION: No acute cardiopulmonary process. I have personally reviewed the images of this examination and agree with the resident's findings and interpretations. Interpreted by: Hernan Marvin MD Preliminary Report By: Phi Juárez Electronically signed By Hernan Marvin MD Dictated Date: 08/05/2023 5:03:34 PM Prelim Date: 08/05/2023 5:14:52 PM Sign Date: 08/05/2023 5:14:52 PM Ordering Provider: DARIUS [facility]05-30-2024 NoteSinus rhythm Consider anterior infarct Electronic Signature: DARIUS KAUFMAN MD 08/05/2023 16:34:46[facility] 12-20-2022 Chief complaint Narrative - Reported* An interactive audio and video telecommunication system which permits real time communications between the patient (at the originating site) and provider (at the distant site) was utilized to providethis telehealth service. * Verbal consent was requested and obtained from SHU GASPAR on this date, 02/24/2022 12:30 PM , for a telehealth visit. [place] [address] DO Work Phone: 1(609) 923-757712-20-2022 Chief complaint Narrative - Reported* An interactive audio and video telecommunication system which permits real time communications between the patient (at the originating site) and provider (at the distant site) was utilized to providethis telehealth service. * Verbal consent was requested and obtained from SHU GASPAR on this date, 02/24/2022 12:30 PM , for a telehealth visit. [id number]-Mhkxxch 1200 DO Work Phone: 1(482) 235-317412-02-2022 History of Present illness Narrative* Pt. to follow up on mood /BP * increased Lexapro 20mg-increased from 10 a few weeks ago and does feel a good difference * baby is much more calm-had milk protein allergy-baby is now on nutramigen * enjoying being a parent more now, but still working on bonding-feels like she missed the first weeks of this and needs to catch up, has some guilt * met w/ Dr. Ervin * stopped Labetolol 02/12 * last 4-5 days of BP 126/82, 130/84 * no headache * no vision changes * plans to go back to work 03/29 * resumed sexual activity w/ condoms * is not on control period currently-wants to try OCPs again, was on before and liked * believes she had her first menstrual cycle * 02/13/22 CS-OCNPF-Nznunihp 2420 DO Work Phone: 1(213) 310-209611-02-2022 NoteSend Summary: Note Recipients: Discharge: Summary: Admission Date: .04-Jan-2022 08:18:00 Discharge Date: 07-Jan-2022 Attending Physician at Discharge: Yasmin Lackey Admission Reason: IOL Final Discharge Diagnoses: (normal spontaneous vaginal delivery) Procedures: none Condition at Discharge: Satisfactory Disposition at Discharge: .Home Vital Signs: T PRBPMAPSpO2 [id number]% Date/Time01/07 8: 8: 8: 8: 8: 8:05 Range(36C - 36.8C ) (75 - 93 ) (16 - 20 ) (111 - 137 )/ (70 - 90 ) (84 - 106 ) (95% - 98% ) Date: Weight/Scale Type:Height: 30-Dec-2021 08:07380 kg / vehjarvo876.4 cm Physical Exam: General: well appearing, well-nourished, Obstetric: abdomen soft/non-tender, fundus firm below umbilicus, lochia light Skin: No rashes/lesions/erythema Breast: No masses, nipple discharge Neuro: A/Ox3, conversational GI: +BS, +flatus Respiratory: Even and unlabored on RA, LSCTA BL Cardiovascular: No edema, discoloration, or pain in BLE Psych: appropriate mood and affect Pt seen with baby and support person @ bedside in NAD. Alert, conversational. Denies JEFFERS, N/V, RUQ pain, vision changes. PP course uneventful. Voiding spontaneously, ambulating well on own, eating regular diet, passing flatus, lochia light, and pain well controlled on PO meds. Hospital Course: 31 year old @ 39.2 weeks by 8.5 week US. She presents for IOL. Denies or presents with bleeding or leaking. Baby active. 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 SSE on admission Rubella nonimmune --> for MMR Class III obesity Resolved Polyhydramnios - JOHN 22. MVP 6.5 on 12/22. Previously JOHN 28 and MVP 8.2 on 12/15 Dispo - I have reviewed with the patient the standard 3 day stay for hypertensive disorders and the risks/benefits of early discharge, including stroke, seizure, and readmission. Pt verbalized understanding, states that she feels well, and desires discharge today. Given largely normotensive and close f/u, OK for DC today and follow-up as below. - The signs and symptoms of PEC were reviewed with the patient, including unrelenting headache, vision changes/blurred vision, and pain underneath the right breast. - BP cuff for home for checking BP BID. Pt instructed to call primary OB if SBP > 160 or DBP > 110. - On discharge, follow up with primary OB in 2-5 days for BP check and 4-6 weeks for visit. Immunizations: Immunizations: 04-Apr-2020 SARS-CoV-2 (COVID-19): Immunizations, 04-Apr-2020 SARS-CoV-2 (COVID-19): Immunizations, 06-Mar-2020 Discharge Information: and Continuing Care: Lab Results - Pending: Surgical Pathology Drawn at 05-Jan-2022 09:17:00 Radiology Results - Pending: None [place] Suicide Risk: negative Discharge Instructions: Activity: Return to normal activity as tolerated Follow Up Appointments: Follow-Up - OB Provider: Physician/Dept/Service: OB Provider Discharge Medications: Home Medication Prena1 oral capsule - 1 cap(s) orally once a day Vitamin D3 1250 mcg (50,000 intl units) oral capsule - cap(s) orally once a week Vitamin C - null Aspir 81 oral delayed release tablet - 1 tab(s) orally once a day Lexapro 10 mg oral tablet - 1 tab(s) orally once a day acetaminophen 325 mg oral tablet - 3 tab(s) orally every 6 hours ibuprofen 600 mg oral tablet - 1 tab(s) orally every 6 hours PRN Medication docusate sodium 100 mg oral capsule - 1 cap(s) orally 2 times a day, As needed, Stool Softening DNR Status: Code StatusCode Status order at time of discharge: Full Code Electronic Signatures: Yasmin Lackey (ENVIRONMENTAL SERVICES DIRECTOR-PRIMARY HEALTH ORGANISATION MANAGER) (Signed 07-Jan-2022 09:54) Authored: Send Summary, Summary Content, Immunizations, Ongoing Care, DNR Status, Note Completion Last Updated: 07-Jan-2022 09:54 by Yasmin Lackey (ENVIRONMENTAL SERVICES DIRECTOR-PRIMARY HEALTH ORGANISATION MANAGER)[facility]10-31-2022 History of Present illness Narrative* The patient is being seen for follow up. The patient is status post vaginal delivery. Obs tetrical complications include pre-eclampsia and After delivery. Delivery date was 01.05.22. The baby is a boy. The baby's name is Chad. weight was 7 lbs, 8 oz. [place] complications includerespiratory distress. He was circumcised. The baby is currently living at home. The baby is bottle feeding. She is a 1 Para 1. The patient has had no menses since delivery. For contraception,she uses nothing and uses oral contraceptives. The patient is currently asymptomatic. No associatedsymptoms are reported. * Pt. here for PP visit * SVB 01/05/22, happy with * Diagnosed w/ GHTN, started on Labetolol at OSH about 1 week PP * formula only now- did not go well * lochia gone * reports some urinary retention, able to go. No dysuria. * no issues w/ bowels * resumed intercourse, no pain. Considering OCPs * mild episodes of tearfulness, no thoughts of self harm. Baby is colicky, can be overwhelming at times. * Brought BP logs, mostly normotensive with a few outlier mild BPs. No headaches. * Reports occasional lightheadedness,still taking Labetolol 100mg BID. No h/o CHTN prior to . [id number]-RNNPC-Aykwvrnx 5938 DO Work Phone: [phone] NoteProvider Information: Maternal Delivery Information: Delivery Type: vaginal delivery Did this pt receive corticosteroids at any time during this : No Was intraamniotic infection diagnosed during this labor: no What antibiotic(s) were administered during labor and/or pre-incision: none Did this patient receive progesterone in any form to prevent premature delivery: no Rupture of Membranes: artificial Spontaneous Labor: no Induction or Scheduled : induction Is patient at delivery >/= to 37 to < 39 completed weeks of gestation: no Vaginal Delivery Type: spontaneous Vaginal Delivery Complications: none Delivery Anesthesia: epidural Presentation/Lie: vertex Vertex Presentation: occiput anterior Episiotomy & Repair: none Perineal Laceration: none Other Laceration: vaginal, left vaginal wall Laceration Repair: yes yes, 1 interrupted w/4-0 vicryl QBL (mL): 150 mL Blood Products Transfused during Delivery (indicate number of units given): none Placenta: spontaneous Choose Baby: A Cord Characteristics: no anomalies noted Delayed Cord Clamping (equal to or greater than 30 seconds): yes Time until cord clamp: 5 mins Day of Delivery (Baby A): 05-Jan-2022 Gestational Age at Delivery (wk.days): 39.3 Term: term 37.0 to 41.6 weeks Live : yes Vaginal Delivery Provider: ALLY Beckham Dictation: no Hemorrhage Risk Screen: Hemorrhage Medium Risk Factors (T&S) (2 or more medium risks Go to High Risk section & obtain T&C)BMI > 35, IOL with oxytocin or cervical ripening, polyhydramnios(1) Hemorrhage High Risk Factors (T&C)2 or more medium risk factors(1) Hemorrhage Risk Assessmenthemorrhage risks reviewed and additional factors added if applicable Hemorrhage Risk Score HighPatient is at High Risk for an OB hemorrhage. Order Type & Cross. Score Calculation - IT Use Only5 Attestation: Note Completion: Attending AttestationI performed the procedure without a resident Electronic Signatures: Tameka Gonsalves ([facility]) (Signed 05-Jan-2022 07:31) Authored: Provider Information, Hemorrhage Risk, Note Completion Last Updated: 05-Jan-2022 07:31 by Tameka Gonsalves ([facility]) References: 1. Data Referenced From History and Physical - OB 04-Jan-2022 09:54[facility]10-30-2022 NoteClinical Event: Clinical Event Note: Topiclabor progress note Details S: 31 year old @ 39.2 weeks, IOL. Resting comfortably s/o CRB. Still having periods of uncomfortable contractions, but coping well. No complaints at this time O: Cervical Exam: /-3 FHR Baseline: 130 Variability: moderate Accels: present Decels: intermittent variable (one right after pt was laying flat for cervical exam). Possible d/t janae monitor. Asked RN to switch to belt. Category: 2 TOCO: every 2-3 min Membrane status - intact A: 31 year old @ 39.2 weeks Cat 2 tracing - overall reassuring for variability. Possibly r/t monitor. GBS neg s/p CRB P: Continue to monitor maternal and status Will switch monitor to belts/wired monitor and continue to monitor Will start pitocin per unit guidelines when appropriate Movement encouraged Pain mgt per pt request SVE and AROM once in a good contraction pattern Will anticipate Grace Valdez APRN CNM Electronic Signatures: Grace Valdez ([facility]) (Signed 04-Jan-2022 17:17) Authored: Clinical Event Note Last Updated: 04-Jan-2022 17:17 by Grace Valdez ([facility]10-30-2022 NoteClinical Event: Clinical Event Note: Topiclabor progress note Details S: 31 year old @ 39.2 weeks gestation, IOL. Uncomfortably cramping with CRB but coping well, resting in bed. O: Cervical Exam: def FHR Baseline: 130 Variability: moderate Accels: present Decels: negative Category: 1 TOCO: irregular Second dose of cytotec placed A: 31 year old @ 39.2 weeks. IOL CRP and cyto Cat 1 tracing P: Continue to monitor maternal and status. Will plan to start pitocin after CRB is out, 4 hours after last dose of cyto Pain control per pt request Movement encouraged Grace Valdez APRN CNM Electronic Signatures: Grace Valdez (ENVIRONMENTAL SERVICES DIRECTOR-[facility]) (Signed 04-Jan-2022 13:16) Authored: Clinical Event Note Last Updated: 04-Jan-2022 13:16 by Grace Valdez ([facility]10-30-2022 NoteHPI/OB History: Care Provider: Tom Bull Descriptive Info: HPI 31 year old @ 39.2 weeks by 8.5 week US. She presents for IOL. Denies or presents with bleeding or leaking. Baby active. 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 MVP 6.5 on 12/22. 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 LEAD hx: PCOS, HPV OBHx: n/a Fam hx: Meds: Lexapro, ASA, PNV, Valtrex Social hx: Denies ETOH, drugs, tobacco Labs: Labs: Labs: Blood Typed Date: 13-Jun-2021 Blood Type: A positive Antibody Screen Results: negative Chlamydia Date: 13-Jun-2021 Chlamydia Results: negative Gonorrhea Date: 13-Jun-2021 Gonorrhea Results: negative Group B Strep Date: 12-Dec-2021 Strep Results: negative GCT (-): 03-Oct-2021 GCT result: 116 HBsAG Date: 13-Jun-2021 HBsAG Results: negative Hemoglobin A1C (-): 13-Jun-2021 Hemoglobin A1C: 5.2 % Estimated Average Glucose: 103 HIV Date: 13-Jun-2021 HIV Results: negative Rubella Date: 03-Oct-2021 Rubella Results: nonimmune Rubella Comments: Result Value Negative Syphilis (mmmdd-yyyy): 03-Oct-2021 Syphilis Results: negative Antepartum/: Antepartum/PP: Date Earliest [id number] EGA at that study (weeks)8.5 SLIME by [id number] Final [id number] Current EGA:39.2 Patient is > or = 35.0 wks EGAyes Determined byLeopolds EFW (kg)3.175 kilogram(s) EFW (lb)7 pound(s) EFW (oz)0 ounce(s) Presentationcephalic presentation verified bybedside ultrasound Vaginal BleedingNo Contractions/Abdominal PainNo Discharge/Loss of FluidNo MovementGood Hemorrhage Medium Risk Factors (T&S) (2 or more medium risks Go to High Risk section & obtain T&C)BMI > 35, IOL with oxytocin or cervical ripening, polyhydramnios Hemorrhage High Risk Factors (T&C)2 or more medium risk factors Hemorrhage Risk Assessmenthemorrhage risk completed on admission Hemorrhage Risk ScorePatient is at High Risk for an OB hemorrhage. Order Type & Cross. Score Calculation - IT Use Only3 TOLACno Did this patient receive progesterone in any form to prevent premature deliveryno Does patient desire postplacental IUDno Social History: Social History: Smoking Statusnever smoker (1) Alcohol Usedenies(1) Drug Usedenies (1) Drug 2 Usedenies (1) Allergies: No Known Allergies: Medications Prior to Admission: Prena1 oral capsule: 1 cap(s) orally once a day Vitamin D3 1250 mcg (50,000 intl units) oral capsule: cap(s) orally once a week Vitamin C: null Aspir 81 oral delayed release tablet: 1 tab(s) orally once a day Lexapro 10 mg oral tablet: 1 tab(s) orally once a day. Review of Systems: Constitutional: NEGATIVE: Fever, Chills, Anorexia, Weight Loss, Malaise Eyes: NEGATIVE: Blurry Vision, Drainage, Diploplia, Redness, Vision Loss/ Change ENMT: NEGATIVE: Nasal Discharge, Nasal Congestion, Ear Pain, Mouth Pain, Throat Pain Respiratory: NEGATIVE: Dry Cough, Productive Cough, Hemoptysis, Wheezing, Shortness of Breath Cardiac: NEGATIVE: Chest Pain, Dyspnea on Exertion, Orthopnea, Palpitations, Syncope Gastrointestinal: NEGATIVE: Nausea, Vomiting, Diarrhea, Constipation, Abdominal Pain Genitourinary: NEGATIVE: Discharge, Dysuria, Flank Pain, Frequency, Hematuria Musculoskeletal: NEGATIVE: Decreased ROM, Pain, Swelling, Stiffness, Weakness Neurological: NEGATIVE: Dizziness, Confusion, Headache, Seizures, Syncope Psychiatric: NEGATIVE: Mood Changes, Anxiety, Hallucinations, Sleep Changes, Suicidal Ideas Skin: NEGATIVE: Mass, Pain, Pruritus, Rash, Ulcer Endocrine: NEGATIVE: Heat Intolerance, Cold Intolerance, Sweat, Polyuria, Thirst Hematologic/Lymph: NEGATIVE: Anemia, Bruising, Easy Bleeding, Night Sweats, Petechiae Allergic/Immunologic: NEGATIVE: Anaphylaxis, Itchy/ Teary Eyes, Itching, Sneezing, Swelling Breast: NEGATIVE: Pain, Mass, Discharge, Nipple Itching, Gynecomastia Objective: Objective Information: T PRBPMAPSpO2 [id number]% Date/Time01/04 8: 8: 8: 8: 8: 8:45 Range(36.5C - 36.5C ) (82 - 82 ) (16 - 16 ) (132 - 132 )/ (69 - 69 ) (94 - 94 ) (100% - 100% ) Physical Exam by System: Constitutional: alert, oriented Obstetric: Cervical Exam: FHT: Baseline: 144, Variability: moderate, Accels: present, Decels: neg TOCO: n/a Membrane status - intact 0940 - CRB inserted through cervical os and inflated with 60cc saline. Placement of balloon confirmed with gentle traction. Gentle traction applied. Patient tolerated well. SSE: negative for lesions Res (more content not included)...[facility]04-08-2022 Note Date of Procedure: 06/13/2021 Pathologist: [facility], Cytology Date Reported: 06/24/2021 Date Received: 06/13/2021 Submitting Physician: TOM BULL CNM FINAL CYTOLOGICAL INTERPRETATION A. THINPREP PAP CERVICAL: Specimen adequacy: SATISFACTORY FOR EVALUATION. Quality Indicator: Endocervical/transformation zone component is present. General Categorization: NEGATIVE FOR INTRAEPITHELIAL LESION OR MALIGNANCY. Descriptive Interpretation: SHIFT IN VAGINAL ERROL SUGGESTIVE OF BACTERIAL VAGINOSIS. HIGH RISK HPV TEST RESULT: HPV GENOTYPE 16 NEGATIVE HPV GENOTYPE 18 NEGATIVE HPV GENOTYPE OTHER NEGATIVE Reference Range: Negative Slide(s) initially screened by a Battalion Chief at [facility], [address] [place] [id number] Testing for high-risk (HR) type of human papilloma virus (HPV) is performed by the Phyllis cynthia HPV Test. The cynthia HPV Test is a qualitative polymerase chain reaction that amplifies DNA of HPV16, HPV18 and 12 other high-risk HPV types (31, 33, 35, 39, 45, 51, 52, 56, 58, 59, 66, and 68) associated with cervical cancer and its precursor lesions. A positive result indicates the presence of HPV DNA due to one or more of the 14 genotypes: 16, 18, 31, 33, 35, 39, 45, 51, 52, 56, 58, 59, 66, and 68. Negative results indicate HPV DNA concentrations are undetectable or below the pre-set threshold for detection. False negative results may be associated with unoptimized sampling. A negative HR HPV result does not exclude the possibility of future cytologic HSIL or underlying CIN2-3 or cancer. This test is approved for cervical specimens by the [place] Food and Drug Administration. Results of this test should be interpreted in conjunction with the patient?s Pap test results. Please refer to ASCCP current guidelines for the use of HPV DNA testing, result interpretation, and patient management. The performance of this test was verified by the Molecular Diagnostic Laboratory at [facility]. The lab is certified under the Clinical Laboratory Amendments of 1988 (CLIA 88) as qualified to perform high complexity clinical laboratory testing. This specimen has been analyzed by the fflickPrep Imaging System ([employer] an automated imaging and review system, which assists the laboratory in evaluating cells on ThinPrep Pap tests. Following automated imaging, selected [place] from every slide were reviewed by a production support supervisor and/or pathologist. Electronically Signed Out By [facility], Cytology//JMD By the signature on this report, the individual or group listed as making the Final Interpretation/Diagnosis certifies that they have reviewed this case. Educational Note: Cervical cytology is a screening procedure primarily for squamous cancers and precursors and has associated false-negative and false-positive results as evidenced by published data. Your patient?s test should be interpreted in this context, together with patient?s history and clinical findings. Regular sampling and follow-up of unexplained clinical signs and symptoms are recommended to minimize false negative results. Clinical History Date of Last Menstrual Period: 03/30/2021 Other Clinical Conditions: COTEST HPV(Genotype) except for ASC-H, HSIL, Carcinoma - Include HPV Genotype testing GC / CT Testing Ordered Source of Specimen A: THINPREP PAP CERVICAL [facility] Department of Pathology [id number] [address]Comment on above:Performed By: #### C #### [facility] Cytology [id number] [facility] [id number] History of Present illness Narrative* 31 yo MFG1P! referred by OB. PMH May 2021, in September 2021. together for one yr. Working on [employer] FT Employee * Delivered baby boyChad, 01/05/22, unplanned via at 39wga. No trauma. Complication developed PP HTN, give medications. almost at baselines. Had hard start . Started BFing , unable to then formula, les than week severe milk allergy, now new formula 'done wonders', gaining weight * Mood doing better than how thought had Colic, hx of depression and anxiety Escitalopram 20 mg sinceage 15 yo .prior t en 10 in and recently in past week . since delivery anxiety is high inaddition to * Now at 20 mg for about 7 days, no SEs Baby not sleeping not eating . screaming crying all day and night, vert trying * Now baby is sleeping much better for 12-14 hours per day. Sleep for patient fine at night some issues w. onset, once asleep, for total of about 8 hours, includes naps. Mood most of the time is 'happy' as of past week, rro to that for 7 weeks helpless, sad, angry, irritable, lacked patience, at thattime getting 3-4 hours sleep for first 6 weeks. mother i law live nearby and helpful and parents one hour away. is fantastic. [place] like want to escape, no SI/HI. Had some ITS , regretted not wanting to be a mother, ie made a mistake, verbalizes loving baby, Self rates attachment 80-85% , and higher than earlier 25% Nehemias; improved .Last week has increased socializing, spending time . motherw. mother trying to get out of home, had date night w/ . No anhedonia no social isolation. No difficulty concentrating, completing ADLs. * ROS * ANXIETY: No panic, no OCD, no catastrophic thinking self rated anxiety in past week 09/14 , gets anxious fo baby not getting enough sleep. * WILL Isaiah * PTSD: No abuse, trauma, or neglect. No FBs, nightmares, intrusive recall * PSYCHOSIS. Denies * SUBSTANCE USE: * PMH * Diagnosed PP HTN * Routine Medication: Labetalol , no longer taking off for one week 130/80 * ALLERGIES NKDA * Contraception Condoms * COVID Vax * PMH * Out patient Treatment * - October 2020 'had mental breakdown left , had an affair, high stress in job. took HAYLEY from work, Severe MDD, w/ SI saw psychMD and psychologist for ind therapist . Began divorce proceeding. Moved in w. parents. * In Patient Admission : None * Medications: Trazodone, Zolpidem , Escitalopram, Lorazepam, * SI Hx; + SI in 2020, attempted SI August 2020 had gun in home wrote not to parents, had gun in her hands, * FPH * Maternal : Mother( Zachariah) , grandmother , aunt all have depression * Paternal None * Sibling on mother side attempts SI * Completed suicides in [place] None * PSYCHOSOCIAL Hx * B/R [place] * Parents and together * Siblings middle child of siblings * Education : Ass Degree in Nursing , Ass Arts * Employed since 2014 * since September 2021 , * No legal issues YF-Poormtfwjy-Lvowrab 1200 DO Work Phone: [phone]) 707-862703-01-2022 History of Present illness Narrative* SHU is a 31 yo MFG1P! referred by OB. PMH Hx of depression w/ SI Attempt, and anxiety treated w/ Escitalopram 20 mg since age 15 yo. in May 2021, in September 2021, together for one yr. Working on [employer] FT Employee * Delivered baby boyChad, 01/05/22, from unplanned via at 39wga. Not a traumatic delivery. Complications developed afterwards w/ HTN, treated by medications, not BP almost at baselines. Started BFing, unable to sustain, less than week w/ formula baby developed severe milk allergy, now new formula 'done wonders', gaining weight * Reduced medication to 10mg in . Since delivery anxiety is high and dose increased to 20 mgfor about 7 days. Mood doing better than before as thought baby had colic. Aat that time baby not sleeping not eating, baby screaming, crying all day and night, very trying. Now baby sleeping much bet ter for 12-14 hours per day. Sleep for patient fine at night for total of about 8 hours, includes naps. Mood most of the time is 'happy' as of past week, previously for 7 weeks helpless, sad, angry, irritable, lacked patience, at that time getting 3-4 hours sleep for first 6 weeks. In law live nearby and helpful, parents one hour away. is fantastic. [place] like want to escape, no SI/HI. [place] ITS , ie regretting not wanting to be a mother, made a mistake, verbalizes loving baby, Self rates attachment 80-85%, and higher than earlier at 25% Nehemias; improved .Last week has increased socializing, trying to get out of home, had date night w/ . No anhedonia no social isolation. No difficulty concentrating, completing ADLs. * ROS * ANXIETY: No panic, no OCD, no catastrophic thinking self rated anxiety in past week 09/14 , gets anxious if baby not getting enough sleep. * WILL Denies * PTSD: No abuse, trauma, or neglect. No FBs, nightmares, intrusive recall * PSYCHOSIS. Denies * SUBSTANCE USE: * PMH * Diagnosed PP HTN * Routine Medication: Labetalol , no longer taking off for one week 130/80 * ALLERGIES NKDA * Contraception Condoms * COVID Vax * PMH * Out patient Treatment * - October 2020 'had mental breakdown left , had an affair, high stress in job. took HAYLEY from work, Severe MDD, w/ SI saw psychMD and psychologist for ind therapist . Began divorce proceeding. Moved in w. parents. * In Patient Admission : None * Medications: Trazodone, Zolpidem , Escitalopram, Lorazepam, * SI Hx; + SI in 2020, attempted SI August 2020 had gun in home wrote not to parents, had gun in her hands, * FPH * Maternal : Mother( Zachariah) , grandmother , aunt all have depression * Paternal None * Sibling on mother side attempts SI * Completed suicides in [place] None * PSYCHOSOCIAL Hx * B/R [place] * Parents and together * Siblings middle child of siblings * Education : Ass Degree in Nursing , Ass Arts * Employed since 2014 * since September 2021 , * No legal issues OT-Stpckvliok-Ffgsnfq 1200 DO Work Phone: [phone]) [phone] History of Present illness Narrative1) Pt presents today stating she took a test 04/30/21 and it was positive. She states shethinks she has a yeast infection, she states it is itchy.-[facility] Work Phone: Evaluation + Plan note No data available for this section [facility] Evaluation noteN/ADept. 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 Evaluation note* Breast: negative erythema, engorgement, warmthNeurological: Alert/Oriented x3, speech clearExtremities: BLE no edema/erythema/warmth.Musculoskeletal: Moves all extremities, full ROMGastrointestinal: abdomen soft, non-tender, no distension, +BSRespiratory/Thorax: No increased WOB, rhythm even and unlabored, LSCTA BLSkin: warm, dry, intactHead/Neck: normocephalic/atraumatic, full ROM intact, no enlarged lymphnodesENMT: no hearing deficit, no goiterEyes: sclera white, EOM intact, no drainage/discharge or erythemaPsychological: appropriate affect, interactiveConstitutional: alert, oriented [facility] noteNo assessment information available [facility] Work Phone: History of Present illness Narrative* The patient is being seen for follow-up of obesity. The patient reports doing well and a weight loss of 6 pounds. * HEALTH MAINTENANCE - * FLU: utd * COVID (Moderna, Pfizer): utd [facility] Work Phone: History of Present illness Narrative* The patient is being seen for follow-up of obesity. The patient reports doing well and a weight loss of 6 pounds. * HEALTH MAINTENANCE - * FLU: utd * COVID (Moderna, Pfizer): utd [facility] Work Phone: History of Present illness Narrative* The patient states her depression has worsened since the last visit. She describes this as severe. Comorbid Illnesses: anxiety. * Interval Symptoms: worsened depression, worsened depressed mood, worsened loss of energy, worsened trouble concentrating and worsened anxiety. * Associated symptoms include: thoughts of suicide. * Social Support: the patient has good social support. * Medications: the patient is adherent with her medication regimen. She denies medication side effects. Medication(s): Lexapro. * Additional History: not eating, hasn't eaten since Wednesday. * patient is accompanied by mom and dad in the office today. mom states she has been talking about driving her car into a wall. she states she feels lost, like she wants to get in her car and drive away and start over. she is now back at home and is not with her . * she was advised by her work to file for FMLA * Patient is requesting FMLA for ? depression * continuous or intermittent? continuous for 2 weeks * start date? 10/08/2020 * how much time off per month is patient requesting? [facility] Work Phone: History of Present illness Narrative* The patient states her depression has worsened since the last visit. She describes this as severe. Comorbid Illnesses: anxiety. * Interval Symptoms: worsened depression, worsened depressed mood, worsened loss of energy, worsened trouble concentrating and worsened anxiety. * Associated symptoms include: thoughts of suicide. * Social Support: the patient has good social support. * Medications: the patient is adherent with her medication regimen. She denies medication side effects. Medication(s): Lexapro. * Additional History: not eating, hasn't eaten since Wednesday. * patient is accompanied by mom and dad in the office today. mom states she has been talking about driving her car into a wall. she states she feels lost, like she wants to get in her car and drive away and start over. she is now back at home and is not with her . * she was advised by her work to file for FMLA * Patient is requesting FMLA for ? depression * continuous or intermittent? continuous for 2 weeks * start date? 10/08/2020 * how much time off per month is patient requesting? [facility] Phone: History of Present illness NarrativeThe patient is being seen for initiating contraception. Patient goals include prevention.The patient is currently asymptomatic.[facility] Phone: Hospital Discharge instructions* Activity:Return to normal activity as tolerated. * Patient Instructions:Pelvic Rest: DO NOT place anything in vagina until cleared by OB Provider. * Follow-Up - OB Provider:Physician/Dept/Service: OB ProviderComments: Please call for BP check within 2-5 days and a 4-6wk visit * Follow Up Appointment 1:Physician/Dept/Service: OB ProviderReason for Referral: Blood Pressure CheckScheduled Date/Time: 16-Jan-2022 14:30 * Follow Up Appointment 2:Physician/Dept/Service: CNMReason for Referral: PPVComments: Please call toschedule * Gold Form - Other Clinicians:Nursing Instructions: The [place] [employer] recommends that pacifier use is best avoided during the initiation of and used only after is well established. In some infants, early pacifier use may interfere with establishment of good practices, whereas in others it may indicate the presence of a problem that requires intervention. Use of a pacifier may cause problems with latching, and lead to decreased milk supply by missing feeding opportunities. Pacifiers may be used during painful procedures, but are not otherwise recommended while the is learning to breastfeed. Other Clinician Instructions: Any woman can have complications after the of a baby including a blood clot, a heart problem, hypertensive disorder/eclampsia, depression, hemorrhage, or infection. Notify all providers of your delivery date up to one year after .* Call 911 or go to nearest emergency room right away if you have: PAIN or pressure in chest; OBSTRUCTED breathing or shortness of breath; SEIZURES; THOUGHTS of hurting yourself or your baby; heart palpitations/racing; change in alertness/confusion.Call your provider if you have: BLEEDING, soaking through a pad/hour, or blood clots the size of an eggor bigger; INCISION (episiotomy stitches or site) that is not healing (increased redness,pain, drainage/pus, or separation); RED or swollen leg/calf that is painful or warm to touch, especially in one leg more than the other; TEMPERATURE of 100.4 F or higher or chills; HEADACHE that doesnot get better with medicine, rest or hydration, or bad headache with vision changes like spots or flashing lights; increased swelling of face, hands or legs; severe cramps or upper right belly pain;red or swollen breast that is painful or warm to touch; an unusual, foul odor from your vaginal discharge; pain, burning, or difficulty during urination; severe constipation (more than 5 days); feelings of depression (such as depressed mood, loss of interest in enjoyable things, unable to care for yourself, trouble sleeping, lack of appetite, or feeling worthless). If you can t reach your provider or symptoms worsen, call 911 or go to nearest emergency room. *Information obtained from HO s:Save Your Life: Get Care for These POST- Warning Signs [facility] Dis[facility] instructions Additional Instructions Call tomorrow to schedule appt for Wednesday OB BP check with [facility] to [facility] or call compensation consultant OB doctor if: JEFFERS is unresolved, visual dist, right upper abdomenal pain, or rapid weight gain from swelling. Check BP at home: AM, afternoon, and evening. If >160/110 return to hosp maple syrup maker Rx at [facility] for Labetelol 100 mg take in AM and PM. Fiorcet for headache. Fiorcet has tylenol so don't take more than 4 Grams of Tylenol daily to prevent liver damage.[facility] Work Phone: Progress note Author Anh Soto [facility] Note Date/Time August 02, 2024 11:33 am [facility] [address] [place] [address], [address] [place] [address] OFFICE VISIT Date of Service: 08/02/24 MR#: [id number] Acct: [id number] Name: SHU GASPAR Rep #: [id number] : 1990 Provider: Dr. Juana Song DO Age/Sex: 33/F Location: [facility] Status: Signed Intake Vital Signs 06/09/24 13:11 07/06/24 15:06 08/02/24 11:02 08/02/24 11:04 Height 5 ft 2 in 5 ft 2 in 5 ft 2 in 5 ft 2 in Weight: 266 lb BMI 48.6 BP 118/75 Intake Visit Reasons: 16wk ob 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 Is patient in pain?: No Allergies No Known Allergies Allergy (Verified 08/02/24 11:02) Medications ?Medication ?Instructions ?Recorded ?Confirmed ?Type wdvjqpmo-zvu-Ho-FA 1 mg tab PO 01/11/2208/02 History tablet metformin 500 mg tablet mg PO 04/21/23 08/02/24 Hist ory escitalopram oxalate 20 mg tablet 20 mg PO QDAY 08/02/24 History (Lexapro) metoprolol succinate 100 mg 100 mg PO BID 03/17/24 History tablet,extended release 24 hr Last Menstrual Period: 04/09/24 Zika: Zika virus screening: Negative : No PFSH PFS Medical History (Updated 08/02/24 @ 11:[address] Anh Song DO) Polycystic disease, ovaries HPV test positive Herpes simplex type 2 infection Hypertension Gallstone Acute thoracic myofascial strain Depression Migraine Surgical History History of colposcopy History of laparoscopic cholecystectomy Family History Brother Alcoholism Colon cancer Myocardial infarction, Onset Age: 44 Mother Depression Father Diabetes Hypertension Grandmother CVA (cerebral vascular accident) Grandmother Thyroid disorder Uterine cancer Other Cancer Social History adopted: No household members: spouse and children housing: condominium number of children: 1 current occupational status: employed 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: No pets and animals: Yes ( taking care of litterbox) pets and animals: cat(s) history of recent travel: No sexually active: Yes Smoking Status: Never smoker second hand exposure: No alcohol intake: never substance use type: does not use well-balanced diet: about half the time caffeine: Yes Type: coffee Number of servings: 1 eating out: 1-3 times/week during the past year weight has: remained stable what type of physical activity do you participate in: none baylee/uatsdin: None seatbelt use: always do you feel safe at home: Yes additional social history: : Parth Leggett History 2 Elective abortions Hx Para 1 Spontaneous abortions Hx # Term Pregnancies 1 Ectopic pregnancies Hx # Pregnancies Multiple births # of living children 1 Past Pregnancies Del. Date Name GA/Weeks Outcome Route Bth Weight Infant Gen Labor Lgth Anesthesia Del Locatn Provider FOB 01/05/22 Payette 39 live - full term 7lbs 8oz Male e pidural Parth Delivery Date: 01/05/22 Last Updated by: Andressa Schmitz RN HTN during labor..(no pre-e but now has chronic HTN) HPI 16wk ob Details: SHU GASPAR is a 33 year old who presents for routine OB visit. OB Visit SLIME Calculator Estimated Delivery Date Method Current WG Current Estimate 01/14/25 LMP (Certain) 16w 3d Other Estimates 01/17/25 Ultrasound #1 16w 0d Expected Delivery Route/Plan Labor Preferences- CB/BF classes: [] labor support person: [] labor intervention preferences: [] pain management options preferred: [] cut cord/dad catch: [] : [] PP control planned: [] discussed possible routes of delivery and associated risks: [] special requests: [] Specific Issue/Plans Covid status: [] Flu vaccine: [] Tdap vaccine: [] Rhogam: [] LARC form signed: [] Problem list reviewed and updated with the most current plan of care details and appropriate orders placed. Relevant counseling for the gestational age provided. Continue routine care and follow up unless otherwise noted in visit notes/problem list details Initial Weight: 254 lb Date -?-?-?-?-?-?-?-?-?-?-?-?- EGA Weight BP Urine Prot -?-?-?-?-?-?-?-?-?-?-?-?- Glucose FHR FuHt Pres Dilation -?-?-?-?-?-?-?-?-?-?-?-?- Effaced St Visit Note 06/09/24 -?-?-?-?-?-?-?-?-?-?-?-?- 8w 5d 254 lb 8 oz (+8 oz) 125/80 -?-?-?-?-?-?-?-?-?-?-?-?- 178 -?-?-?-?-?-?-?-?-?-?-?-?- KW- CRL cons wit h dates. Accepts NIPT will get drawn at next appt due to BMI. discussed POC with CHTN. will start asa at 12 weeks 07/06/24 -?-?-?-?-?-?-?-?-?-?-?-?- 12w 4d 251 lb 8 oz (-2 lb 8 oz) 123/85 -?-?-?-?-?-?-?-?-?-?-?-?- 168 -?-?-?-?-?-?-?-?-?-?--?-?- SM- no vb crmapi ng will get new ob labs today 08/02/24 -?-?-?-?-?-?-?-?-?-?-?-?- 16w 3d 266 lb (+12 lb) 118/75 -?-?-?-?-?-?-?-?-?-?-?-?- 145 -?-?-?-?-?-?-?-?-?-?-?-?- JV- planning to stop metformin and do glucola at 26-28 weeks. continue baby asa and metoprolol. plan twice weekly testing between 32-34 weeks, deliver at 37-38 weeks. JV- planning to stop metform in and do glucola at 26-28 weeks. continue baby asa and metoprolol. plan twice weekly testing between 32-34 weeks, deliver at 37-38 weeks.prefers belt dresser delivery if possible! JV- planning to stop metform in and do glucola at 26-28 weeks. continue baby asa and metoprolol. plan weekly testing @ 32 weeks, deliver at 37-38 weeks.prefers belt dresser delivery if possible! ACOG First Trimester First Trimester: Discussed Second Trimester Second Trimester: Signs and Symptoms of Labor, Selecting a care provider, Reproductive Life Planning & Contreception, Care Planning, Depression/Anxiety and Intimate Partner Violence; Discussed Tobacco Cessation Third Trimester Third Trimester: Pain Management Plans, Labor support person(s), Immediate Larc, Signs and Symptoms of Preeclampsia, Infant Feeding No , [place] Education and Family Medical Leave or Disability Forms Coding Level of Care Code OB Routine Diagnoses Polycystic disease, ovaries E28.2 Obesity affecting O99.210 AMA (advanced maternal age) multigravida 35+ O09.529 Supervision of high-risk O09.90 16 weeks gestation of Z3A.16 Weeks of gestation: 16 weeks Herpes simplex type 2 infection B00.9 Hypertension I10 Acute thoracic myofascial strain S29.019A Depression F32.A Assessment and Plan Assessment and Plan (1) Polycystic disease, ovaries: Status: Acute Comment: counseled regarding continuing vs stopping metformin, patient continued last with good outcomes wants to continue this (2) Obesity affecting : Status: Acute Comment: BMI 45.4; BPPs at 34 weeks& needs anesthesia consult HgBA1C ordered w/NOB (3) AMA (advanced maternal age) multigravida 35+: Status: Acute Comment: growth at 36 (4) Supervision of high-risk : Status: Acute Comment: PRR, , SLIME 01/14/25, PC: Chad, PC: Parth (5) : Status: Acute Qualifiers: Weeks of gestation: 16 weeks Qualified Code(s): Z3A.16 - 16 weeks gestation of Comment: accept NIPT- low risk, male (6) Herpes simplex type 2 infection: Status: Acute Comment: Valtrax PRN (7) Hypertension: Status: Chronic Comment: on Metoprolol - weekly bpp's starting 32 weeks. deliver 37-38 weeks. (8) Acute thoracic myofascial strain: Status: Acute (9) Depression: Status: Acute Comment: Lexapro 08/02/24 1133 <Electronically signed by Anh Hoffman DO> Date _ Anh Song DO Cosigner Signature: Date (if applicable) CC: ~ [facility] Work Phone: Progress note Author Carmen Perdomo [facility] Note Date/Time October 02, 2024 10:0 2am [facility] [address] [place] [address], [address] [place] [id number] OFFICE VISIT Date of Service: 10/02/24 MR#: [id number] Acct: [id number] Name: SHU GASPAR Rep #: [id number] : 1990 Provider: AMIE Perdomo Age/Sex: 33/F Location: [facility] Status: Signed Intake Vital Signs 07/06/24 15:06 09/01/24 14:59 10/02/24 09:42 Height 5 ft 2 in 5 ft 2 in 5 ft 2 in Weight: 265 lb 6 oz BMI 48.5 BP 124/83 H Intake Visit Reasons: 24 wk ob Chief Complaint: 24wk OB 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 Is patient in pain?: No Allergies No Known Allergies Allergy (Verified 10/02/24 09:40) Medications 3 ?Medication ?Instructions ?Recorded ?Confirmed ?Type vmpumhpi-urf-Es-FA 1 mg tab PO 01/11/2210/02 History tablet metformin 500 mg tablet mg PO 04/21/23 10/02/24 Hist ory escitalopram oxalate 20 mg tablet 20 mg PO QDAY 10/02/24 History (Lexapro) metoprolol succinate 100 mg 100 mg PO BID 03/17/24 History tablet,extended release 24 hr Last Menstrual Period: 04/09/24 : No PFSH PFSH Medical History Polycystic disease, ovaries HPV test positive Herpes simplex type 2 infection Hypertension Gallstone Acute thoracic myofascial strain Depression Migraine Surgical History History of colposcopy History of laparoscopic cholecystectomy Family History Brother Alcoholism Colon cancer Myocardial infarction, Onset Age: 44 Mother Depression Father Diabetes Hypertension Grandmother CVA (cerebral vascular accident) Grandmother Thyroid disorder Uterine cancer Other Cancer Social History adopted: No household members: spouse and children housing: condominium number of children: 1 current occupational status: employed 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: No pets and animals: Yes ( taking care of litterbox) pets and animals: cat(s) history of recent travel: No sexually active: Yes Smoking Status: Never smoker second hand exposure: No alcohol intake: never substance use type: does not use well-balanced diet: about half the time caffeine: Yes Type: coffee Number of servings: 1 eating out: 1-3 times/week during the past year weight has: remained stable what type of physical activity do you participate in: none baylee/uatsdin: None seatbelt use: always do you feel safe at home: Yes additional social history: : Parth Leggett History 2 Elective abortions Hx Para 1 Spontaneous abortions Hx # Term Pregnancies 1 Ectopic pregnancies Hx # Pregnancies Multiple births # of living children 1 Past Pregnancies Del. Date Name GA/Weeks Outcome Route Bth Weight Gen Labor Lgth Anesthesia Del Locatn Provider FOB 01/05/22 Chad 39 live - full term 7lbs 8oz Male e pidural [facility] Delivery Date: 01/05/22 Last Updated by: Andressa Schmitz RN HTN during labor..(no pre-e but now has chronic HTN) HPI 24 wk ob Details: SHU GASPAR is a 33 year old who presents for routine OB visit. OB Visit SLIME Calculator Estimated Delivery Date Method Current WG Current Estimate 01/14/25 LMP (Certain) 25w 1d Other Estimates 01/17/25 Ultrasound #1 24w 5d Expected Delivery Route/Plan Labor Preferences- CB/BF classes: [] labor support person: [] labor intervention preferences: [] pain management options preferred: [] cut cord/dad catch: [] : [] PP control planned: [] discussed possible routes of delivery and associated risks: [] special requests: [] Specific Issue/Plans Covid status: [] Flu vaccine: [] Tdap vaccine: [] Rhogam: [] LARC form signed: [] Problem list reviewed and updated with the most current plan of care details and appropriate orders placed. Relevant counseling for the gestational age provided. Continue routine care and follow up unless otherwise noted in visit notes/problem list details Initial Weight: 254 lb Date -?-?-?-?-?-?-?-?-?-?-?-?- EGA Weight BP Urine Prot -?-?-?-?-?-?-?-?-?-?-?-?- Glucose FHR FuHt Pres Dilation -?-?-?-?-?-?-?-?-?-?-?-?- Effaced St Visit Note 06/09/24 -?-?-?-?-?-?-?-?-?-?-?-?- 8w 5d 254 lb 8 oz (+8 oz) 125/80 -?-?-?-?-?-?-?-?-?-?-?-?- 178 -?-?-?-?-?-?-?-?-?-?-?-?- KW- CRL cons wit h dates. Accepts NIPT will get drawn at next appt due to BMI. discussed POC with CHTN. will start asa at 12 weeks 07/06/24 -?-?-?-?-?-?-?-?-?-?-?-?- 12w 4d 251 lb 8 oz (-2 lb 8 oz) 123/85 -?-?-?-?-?-?-?-?-?-?-?-?- 168 -?-?-?-?-?-?-?-?-?-?-?-?- SM- no vb crmapi ng will get new ob labs today 08/02/24 -?-?-?-?-?-?-?-?-?-?-?-?- 16w 3d 266 lb (+12 lb) 118/75 Negative -?-?-?-?-?-?-?-?-?-?-?-?- Negative 145 -?-?-?-?-?-?-?-?-?-?-?-?- JV- planning to stop metformin and do glucola at 26-28 weeks. continue baby asa and metoprolol. plan twice weekly testing between 32-34 weeks, deliver at 37-38 weeks. JV- planning to stop metform in and do glucola at 26-28 weeks. continue baby asa and metoprolol. plan twice weekly testing between 32-34 weeks, deliver at 37-38 weeks.prefers belt dresser delivery if possible! JV- planning to stop metform in and do glucola at 26-28 weeks. continue baby asa and metoprolol. plan weekly testing @ 32 weeks, deliver at 37-38 weeks.prefers belt dresser delivery if possible! 09/01/24 -?-?-?-?-?-?-?-?-?-?-?-?- 20w 5d 259 lb 2 oz (+5 lb 2 oz) 119/86 Negative -?-?-?-?-?-?-?-?-?-?-?-?- Negative 150 -?-?-?-?-?-?-?-?-?-?-?-?- JV- no lof, vagi nal bleeding, or dec fm. normal anatomy with exception of decreased views of heart 10/02/24 -?-?-?-?-?-?-?-?-?-?-?-?- 25w 1d 265 lb 6 oz (+11 lb 6 oz) 124/83 Negative -?-?-?-?-?-?-?-?-?-?-?-?- Negative 145 -?-?-?-?-?-?-?-?-?-?-?-?- KW- no vb/lof/ct x. good fm. glucose discussed. KW- no vb/lof/ctx. good fm. glucose discussed. reviewed [place] ACOG First Trimester First Trimester: Discussed Second Trimester Second Trimester: Signs and Symptoms of Labor, Selecting a care provider, Reproductive Life Planning & Contreception, Care Planning, Depression/Anxiety and Intimate Partner Violence; Discussed Tobacco Cessation Third Trimester Third Trimester: Pain Management Plans, Labor support person(s), Immediate Larc, Signs and Symptoms of Preeclampsia, Feeding No , Education and Family Medical Leave or Disability Forms ROS Const Reports system reviewed and no additional complaints, except as documented Eyes Reports system reviewed and no additional complaints, except as documented ENT Reports system reviewed and no additional complaints, except as documented Card Reports system reviewed and no additional complaints, except as documented Resp Reports system reviewed and no additional complaints, except as documented GI Reports system reviewed and no additional complaints, except as documented, Denies nausea and Denies vomiting Reports system reviewed and no additional complaints, except as documented Musc Reports system reviewed and no additional complaints, except as documented Skin/Breast Reports system reviewed and no additional complaints, except as documented Neuro Yes system reviewed and no additional complaints, except as documented Psych Reports system reviewed and no additional complaints, except as documented Endo Reports system reviewed and no additional complaints, except as documented Michael/Lymph Reports system reviewed and no additional complaints, except as documented Aller/Immun Reports system reviewed and no additional complaints, except as documented Exam Const General: cooperative, healthy appearing and no acute distress Orientation: alert, awake and oriented x3 Neck Neck: normal visual inspection and full ROM Resp Effort & Inspection: normal respiratory effort, able to speak in complete sentences and symmetric chest movement GI Inspection: normal to inspection Palpation: soft and other Other: gravid Skin General: no rashes or lesions noted Neuro General: patient alert, patient awake and patient oriented x3 Cognition: normal cognition Speech: speech normal Gait: normal gait Motor: muscle tone normal throughout Extrem General: normal to inspection and full ROM Psych Appearance: grossly normal Mental Status: mental status grossly normal Mood: congruent mood Affect: normal affect Speech and Movement: speech and movement normal Attitude: cooperative Thought Process: normal Thought Content: normal Judgment: judgment good Results POC Urinalysis 2 Dip (Clinic) Office Urine Glucose Negative Last Edit by Betsy Espinosa on 10/02/24 09:52 Office Urine Protein Negative Last Edit by Betsy Espinosa on 10/02/24 09:52 Coding Level of Care Code OB Routine Diagnoses Polycystic disease, ovaries E28.2 Obesity affecting O99.210 AMA (advanced maternal age) multigravida 35+ O09.529 Supervision of high-risk O09.90 25 weeks gestation of Z3A.25 Weeks of gestation: 25 weeks Herpes simplex type 2 infection B00.9 Hypertension I10 Acute thoracic myofascial strain S29.019A Depression F32.A Assessment and Plan Assessment and Plan (1) Polycystic disease, ovaries: Status: Acute Comment: counseled regarding continuing vs stopping metformin, patient continued last with good outcomes wants to continue this (2) Obesity affecting : Status: Acute Comment: BMI 45.4; BPPs at 34 weeks& needs anesthesia consult HgBA1C ordered w/NOB (3) AMA (advanced maternal age) multigravida 35+: Status: Acute Comment: growth at 36 (4) Supervision of high-risk : Status: Acute Comment: PRR, , SLIME 01/14/25, PC: Chad, PC: Parth (5) : Status: Acute Qualifiers: Weeks of gestation: 25 weeks Qualified Code(s): Z3A.25 - 25 weeks gestation of Comment: accept NIPT- low risk, male (6) Herpes simplex type 2 infection: Status: Acute Comment: Valtrax PRN (7) Hypertension: Status: Chronic Comment: on Metoprolol - weekly bpp's starting 32 weeks. deliver 37-38 weeks. (8) Acute thoracic myofascial strain: Status: Acute (9) Depression: Status: Acute Comment: Lexapro Orders: Orders POC Urinalysis 2 Dip (Clinic) Today O09.90 - Supervision of high risk , unspecified, unspecified trimester, O99.210 - Obesity complicating , unspecified trimester, Z3A.25 - 25 weeks gestation of CBC W/Diff, Automated Today O09.90 - Supervision of high risk , unspecified, unspecified trimester, O99.210 - Obesity complicating , unspecified trimester, Z3A.25 - 25 weeks gestation of Glucose Challenge Gest 1H 50g Today O09.90 - Supervision of high risk , unspecified, unspecified trimester, O99.210 - Obesity complicating , unspecified trimester, Z13.1 - Encounter for screening for diabetes mellitus, Z3A.25 - 25 weeks gestation of HIV Today O09.90 - Supervision of high risk , unspecified, unspecified trimester, O99.210 - Obesity complicating , unspecified trimester, Z3A.25 - 25 weeks gestation of Syphilis Antibodies Today O09.90 - Supervision of high risk , unspecified, unspecified trimester, O99.210 - Obesity complicating , unspecified trimester, Z3A.25 - 25 weeks gestation of Plan Details Additional Comments: ACOG trimester education reviewed and updated. see problem list details for updated plan management information and see below for orders placed at this visit. [place] appropriate handout given. 10/02/24 1002 <Electronically signed by Carmen dallas CNM> Date _ Carmen Perdomo CNM Cosigner Signature: Date (if applicable) CC: ~ [facility] Work Phone: Reason for referral (narrative)* Name Reason for referral NA NA Dept. 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 Reason for referral (narrative)No reason for referral information [place] Work Phone: Family History No Family History Records Found Grandmother Name Dates Details Family history of malignant neoplasm of uterus(V16.49, Z80.49) Status:Active Family history of hypothyroi dism(V18.19, Z83.49) Status:Active Father Name Dates Details Family history of diabetes m ellitus(V18.0, Z83.3) Status:Active Family history of hypertensi on(V17.49, Z82.49) Status:Active Grandmother Name Dates Details Family history of malignant neoplasm of uterus(V16.49, Z80.49) Status:Active Family history of hypothyroi dism(V18.19, Z83.49) Status:Active Father Name Dates Details Family history of diabetes m ellitus(V18.0, Z83.3) Status:Active Family history of hypertensi on(V17.49, Z82.49) Status:Active Grandmother Name Dates Details Family history of malignant neoplasm of uterus(V16.49, Z80.49) Status:Active Family history of hypothyroi dism(V18.19, Z83.49) Status:Active Father Name Dates Details Family history of diabetes m ellitus(V18.0, Z83.3) Status:Active Family history of hypertensi on(V17.49, Z82.49) Status:Active Grandmother Name Dates Details Family history of malignant neoplasm of uterus(V16.49, Z80.49) Status:Active Family history of hypothyroi dism(V18.19, Z83.49) Status:Active Father Name Dates Details Family history of diabetes m ellitus(V18.0, Z83.3) Status:Active Family history of hypertensi on(V17.49, Z82.49) Status:Active Grandmother Name Dates Details Family history of malignant neoplasm of uterus(V16.49, Z80.49) Status:Active Family history of hypothyroi dism(V18.19, Z83.49) Status:Active Father Name Dates Details Family history of diabetes m ellitus(V18.0, Z83.3) Status:Active Family history of hypertensi on(V17.49, Z82.49) Status:Active Unknown Family Member Name Dates Details Family history of diabetes m ellitus: Father(V18.0, Z83.3) Status:Active Family history of malignant neoplasm of uterus: Maternal Grandmother(V16.49, Z80.49) Status:Active Family history of hypertensi on: Father(V17.49, Z82.49) Status:Active Family history of hypothyroi dism: Maternal Grandmother(V18.19, Z83.49) Status:Active Unknown Family Member Name Dates Details Family history of diabetes m ellitus: Father(V18.0, Z83.3) Status:Active Family history of malignant neoplasm of uterus: Maternal Grandmother(V16.49, Z80.49) Status:Active Family history of hypertensi on: Father(V17.49, Z82.49) Status:Active Family history of hypothyroi dism: Maternal Grandmother(V18.19, Z83.49) Status:Active Unknown Family Member Name Dates Details Family history of diabetes m ellitus: Father(V18.0, Z83.3) Status:Active Family history of malignant neoplasm of uterus: Maternal Grandmother(V16.49, Z80.49) Status:Active Family history of hypertensi on: Father(V17.49, Z82.49) Status:Active Family history of hypothyroi dism: Maternal Grandmother(V18.19, Z83.49) Status:Active Unknown Family Member Name Dates Details Family history of diabetes m ellitus: Father(V18.0, Z83.3) Status:Active Family history of malignant neoplasm of uterus: Maternal Grandmother(V16.49, Z80.49) Status:Active Family history of hypertensi on: Father(V17.49, Z82.49) Status:Active Family history of hypothyroi dism: Maternal Grandmother(V18.19, Z83.49) Status:Active Unknown Family Member Name Dates Details Family history of diabetes m ellitus: Father(V18.0, Z83.3) Status:Active Family history of malignant neoplasm of uterus: Maternal Grandmother(V16.49, Z80.49) Status:Active Family history of hypertensi on: Father(V17.49, Z82.49) Status:Active Family history of hypothyroi dism: Maternal Grandmother(V18.19, Z83.49) Status:Active Unknown Family Member Name Dates Details Family history of diabetes m ellitus: Father(V18.0, Z83.3) Status:Active Family history of malignant neoplasm of uterus: Maternal Grandmother(V16.49, Z80.49) Status:Active Family history of hypertensi on: Father(V17.49, Z82.49) Status:Active Family history of hypothyroi dism: Maternal Grandmother(V18.19, Z83.49) Status:Active Unknown Family Member Name Dates Details Family history of diabetes m ellitus: Father(V18.0, Z83.3) Status:Active Family history of malignant neoplasm of uterus: Maternal Grandmother(V16.49, Z80.49) Status:Active Family history of hypertensi on: Father(V17.49, Z82.49) Status:Active Family history of hypothyroi dism: Maternal Grandmother(V18.19, Z83.49) Status:Active Unknown Family Member Name Dates Details Family history of diabetes m ellitus: Father(V18.0, Z83.3) Status:Active Family history of malignant neoplasm of uterus: Maternal Grandmother(V16.49, Z80.49) Status:Active Family history of hypertensi on: Father(V17.49, Z82.49) Status:Active Family history of hypothyroi dism: Maternal Grandmother(V18.19, Z83.49) Status:Active Unknown Family Member Name Dates Details Family history of diabetes m ellitus: Father(V18.0, Z83.3) Status:Active Family history of malignant neoplasm of uterus: Maternal Grandmother(V16.49, Z80.49) Status:Active Family history of hypertensi on: Father(V17.49, Z82.49) Status:Active Family history of hypothyroi dism: Maternal Grandmother(V18.19, Z83.49) Status:Active Unknown Family Member Name Dates Details Family history of diabetes m ellitus: Father(V18.0, Z83.3) Status:Active Family history of malignant neoplasm of uterus: Maternal Grandmother(V16.49, Z80.49) Status:Active Family history of hypertensi on: Father(V17.49, Z82.49) Status:Active Family history of hypothyroi dism: Maternal Grandmother(V18.19, Z83.49) Status:Active Unknown Family Member Name Dates Details Family history of diabetes m ellitus: Father(V18.0, Z83.3) Status:Active Family history of malignant neoplasm of uterus: Maternal Grandmother(V16.49, Z80.49) Status:Active Family history of hypertensi on: Father(V17.49, Z82.49) Status:Active Family history of hypothyroi dism: Maternal Grandmother(V18.19, Z83.49) Status:Active Unknown Family Member Name Dates Details Family history of diabetes m ellitus: Father(V18.0, Z83.3) Status:Active Family history of malignant neoplasm of uterus: Maternal Grandmother(V16.49, Z80.49) Status:Active Family history of hypertensi on: Father(V17.49, Z82.49) Status:Active Family history of hypothyroi dism: Maternal Grandmother(V18.19, Z83.49) Status:Active Unknown Family Member Name Dates Details Family history of diabetes m ellitus: Father(V18.0, Z83.3) Status:Active Family history of malignant neoplasm of uterus: Maternal Grandmother(V16.49, Z80.49) Status:Active Family history of hypertensi on: Father(V17.49, Z82.49) Status:Active Family history of hypothyroi dism: Maternal Grandmother(V18.19, Z83.49) Status:Active Unknown Family Member Name Dates Details Family history of diabetes m ellitus: Father(V18.0, Z83.3) Status:Active Family history of malignant neoplasm of uterus: Maternal Grandmother(V16.49, Z80.49) Status:Active Family history of hypertensi on: Father(V17.49, Z82.49) Status:Active Family history of hypothyroi dism: Maternal Grandmother(V18.19, Z83.49) Status:Active Unknown Family Member Name Dates Details Family history of diabetes m ellitus: Father(V18.0, Z83.3) Status:Active Family history of malignant neoplasm of uterus: Maternal Grandmother(V16.49, Z80.49) Status:Active Family history of hypertensi on: Father(V17.49, Z82.49) Status:Active Family history of hypothyroi dism: Maternal Grandmother(V18.19, Z83.49) Status:Active Unknown Family Member Name Dates Details Family history of diabetes m ellitus: Father(V18.0, Z83.3) Status:Active Family history of malignant neoplasm of uterus: Maternal Grandmother(V16.49, Z80.49) Status:Active Family history of hypertensi on: Father(V17.49, Z82.49) Status:Active Family history of hypothyroi dism: Maternal Grandmother(V18.19, Z83.49) Status:Active Unknown Family Member Name Dates Details Family history of diabetes m ellitus: Father(V18.0, Z83.3) Status:Active Family history of malignant neoplasm of uterus: Maternal Grandmother(V16.49, Z80.49) Status:Active Family history of hypertensi on: Father(V17.49, Z82.49) Status:Active Family history of hypothyroi dism: Maternal Grandmother(V18.19, Z83.49) Status:Active Unknown Family Member Name Dates Details Family history of diabetes m ellitus: Father(V18.0, Z83.3) Status:Active Family history of malignant neoplasm of uterus: Maternal Grandmother(V16.49, Z80.49) Status:Active Family history of hypertensi on: Father(V17.49, Z82.49) Status:Active Family history of hypothyroi dism: Maternal Grandmother(V18.19, Z83.49) Status:Active Unknown Family Member Name Dates Details Family history of diabetes m ellitus: Father(V18.0, Z83.3) Status:Active Family history of malignant neoplasm of uterus: Maternal Grandmother(V16.49, Z80.49) Status:Active Family history of hypertensi on: Father(V17.49, Z82.49) Status:Active Family history of hypothyroi dism: Maternal Grandmother(V18.19, Z83.49) Status:Active Unknown Family Member Name Dates Details Family history of diabetes m ellitus: Father(V18.0, Z83.3) Status:Active Family history of malignant neoplasm of uterus: Maternal Grandmother(V16.49, Z80.49) Status:Active Family history of hypertensi on: Father(V17.49, Z82.49) Status:Active Family history of hypothyroi dism: Maternal Grandmother(V18.19, Z83.49) Status:Active Unknown Family Member Name Dates Details Family history of diabetes m ellitus: Father(V18.0, Z83.3) Status:Active Family history of malignant neoplasm of uterus: Maternal Grandmother(V16.49, Z80.49) Status:Active Family history of hypertensi on: Father(V17.49, Z82.49) Status:Active Family history of hypothyroi dism: Maternal Grandmother(V18.19, Z83.49) Status:Active Unknown Family Member Name Dates Details Family history of diabetes m ellitus: Father(V18.0, Z83.3) Status:Active Family history of malignant neoplasm of uterus: Maternal Grandmother(V16.49, Z80.49) Status:Active Family history of hypertensi on: Father(V17.49, Z82.49) Status:Active Family history of hypothyroi dism: Maternal Grandmother(V18.19, Z83.49) Status:Active Unknown Family Member Name Dates Details Family history of diabetes m ellitus: Father(V18.0, Z83.3) Status:Active Family history of malignant neoplasm of uterus: Maternal Grandmother(V16.49, Z80.49) Status:Active Family history of hypertensi on: Father(V17.49, Z82.49) Status:Active Family history of hypothyroi dism: Maternal Grandmother(V18.19, Z83.49) Status:Active Unknown Family Member Name Dates Details Family history of diabetes m ellitus: Father(V18.0, Z83.3) Status:Active Family history of malignant neoplasm of uterus: Maternal Grandmother(V16.49, Z80.49) Status:Active Family history of hypertensi on: Father(V17.49, Z82.49) Status:Active Family history of hypothyroi dism: Maternal Grandmother(V18.19, Z83.49) Status:Active Unknown Family Member Name Dates Details Family history of diabetes m ellitus: Father(V18.0, Z83.3) Status:Active Family history of malignant neoplasm of uterus: Maternal Grandmother(V16.49, Z80.49) Status:Active Family history of hypertensi on: Father(V17.49, Z82.49) Status:Active Family history of hypothyroi dism: Maternal Grandmother(V18.19, Z83.49) Status:Active Unknown Family Member Name Dates Details Family history of diabetes m ellitus: Father(V18.0, Z83.3) Status:Active Family history of malignant neoplasm of uterus: Maternal Grandmother(V16.49, Z80.49) Status:Active Family history of hypertensi on: Father(V17.49, Z82.49) Status:Active Family history of hypothyroi dism: Maternal Grandmother(V18.19, Z83.49) Status:Active Unknown Family Member Name Dates Details Family history of diabetes m ellitus: Father(V18.0, Z83.3) Status:Active Family history of malignant neoplasm of uterus: Maternal Grandmother(V16.49, Z80.49) Status:Active Family history of hypertensi on: Father(V17.49, Z82.49) Status:Active Family history of hypothyroi dism: Maternal Grandmother(V18.19, Z83.49) Status:Active Unknown Family Member Name Dates Details Family history of diabetes m ellitus: Father(V18.0, Z83.3) Status:Active Family history of malignant neoplasm of uterus: Maternal Grandmother(V16.49, Z80.49) Status:Active Family history of hypothyroi dism: Maternal Grandmother(V18.19, Z83.49) Status:Active Family history of hypertensi on: Father(V17.49, Z82.49) Status:Active Unknown Family Member Name Dates Details Family history of diabetes m ellitus: Father(V18.0, Z83.3) Status:Active Family history of malignant neoplasm of uterus: Maternal Grandmother(V16.49, Z80.49) Status:Active Family history of hypertensi on: Father(V17.49, Z82.49) Status:Active Family history of hypothyroi dism: Maternal Grandmother(V18.19, Z83.49) Status:Active Unknown Family Member Name Dates Details Family history of diabetes m ellitus: Father(V18.0, Z83.3) Status:Active Family history of malignant neoplasm of uterus: Maternal Grandmother(V16.49, Z80.49) Status:Active Family history of hypertensi on: Father(V17.49, Z82.49) Status:Active Family history of hypothyroi dism: Maternal Grandmother(V18.19, Z83.49) Status:Active Unknown Family Member Name Dates Details Family history of diabetes m ellitus: Father(V18.0, Z83.3) Status:Active Family history of malignant neoplasm of uterus: Maternal Grandmother(V16.49, Z80.49) Status:Active Family history of hypertensi on: Father(V17.49, Z82.49) Status:Active Family history of hypothyroi dism: Maternal Grandmother(V18.19, Z83.49) Status:Active Unknown Family Member Name Dates Details Family history of diabetes m ellitus: Father(V18.0, Z83.3) Status:Active Family history of malignant neoplasm of uterus: Maternal Grandmother(V16.49, Z80.49) Status:Active Family history of hypertensi on: Father(V17.49, Z82.49) Status:Active Family history of hypothyroi dism: Maternal Grandmother(V18.19, Z83.49) Status:Active Unknown Family Member Name Dates Details Family history of diabetes m ellitus: Father(V18.0, Z83.3) Status:Active Family history of malignant neoplasm of uterus: Maternal Grandmother(V16.49, Z80.49) Status:Active Family history of hypertensi on: Father(V17.49, Z82.49) Status:Active Family history of hypothyroi dism: Maternal Grandmother(V18.19, Z83.49) Status:Active Unknown Family Member Name Dates Details Family history of diabetes m ellitus: Father(V18.0, Z83.3) Status:Active Family history of malignant neoplasm of uterus: Maternal Grandmother(V16.49, Z80.49) Status:Active Family history of hypertensi on: Father(V17.49, Z82.49) Status:Active Family history of hypothyroi dism: Maternal Grandmother(V18.19, Z83.49) Status:Active Unknown Family Member Name Dates Details Family history of diabetes m ellitus: Father(V18.0, Z83.3) Status:Active Family history of malignant neoplasm of uterus: Maternal Grandmother(V16.49, Z80.49) Status:Active Family history of hypertensi on: Father(V17.49, Z82.49) Status:Active Family history of hypothyroi dism: Maternal Grandmother(V18.19, Z83.49) Status:Active Unknown Family Member Name Dates Details Family history of diabetes m ellitus: Father(V18.0, Z83.3) Status:Active Family history of malignant neoplasm of uterus: Maternal Grandmother(V16.49, Z80.49) Status:Active Family history of hypertensi on: Father(V17.49, Z82.49) Status:Active Family history of hypothyroi dism: Maternal Grandmother(V18.19, Z83.49) Status:Active Unknown Family Member Name Dates Details Family history of diabetes m ellitus: Father(V18.0, Z83.3) Status:Active Family history of malignant neoplasm of uterus: Maternal Grandmother(V16.49, Z80.49) Status:Active Family history of hypertensi on: Father(V17.49, Z82.49) Status:Active Family history of hypothyroi dism: Maternal Grandmother(V18.19, Z83.49) Status:Active Unknown Family Member Name Dates Details Family history of diabetes m ellitus: Father(V18.0, Z83.3) Status:Active Family history of malignant neoplasm of uterus: Maternal Grandmother(V16.49, Z80.49) Status:Active Family history of hypertensi on: Father(V17.49, Z82.49) Status:Active Family history of hypothyroi dism: Maternal Grandmother(V18.19, Z83.49) Status:Active Unknown Family Member Name Dates Details Family history of diabetes m ellitus: Father(V18.0, Z83.3) Status:Active Family history of malignant neoplasm of uterus: Maternal Grandmother(V16.49, Z80.49) Status:Active Family history of hypertensi on: Father(V17.49, Z82.49) Status:Active Family history of hypothyroi dism: Maternal Grandmother(V18.19, Z83.49) Status:Active Relationship Condition Age at Onset Recorded Date/T sreekanth Not Specified Malignant neoplasm Unknown brother Alcoholism Unknown Malignant neoplasm of colon Unknown Myocardial infarction 44 mother Depression Unknown father Diabetes mellitus Unknown Hypertension Unknown grandmother Cerebrovascular accident (CVA) Unknown grandmother Disorder of thyroid Unknown Malignant neoplasm of uterus Unknown Summary Purpose Advance Directives No Advanced Directives Records FoundNo Advanced Directives Records FoundNo Advanced Directives Records FoundNo Advanced Directives Records FoundNo Advanced Directives Records FoundNo Advanced Directives Records FoundNo Advanced Directives Records FoundNo Advanced Directives Records Found Chief Complaint patient is here for a follow up on her weight loss. patient is currently taking Adipex and this will be her 3rd script. she has lost 6 pounds since her last visitpatient is here for a follow up on her weight loss. patient is currently taking Adipex and this will be her 3rd script. she has lost 6 pounds since her last visitpt is here today to follow up on depression and anxiety. pt is currently taking escitalopram oxalate 20mg QD. pt states that she isn't sure if it is working well for her or not.pt is here today to follow up on depression and anxiety. pt is currently taking escitalopram oxalate 20mg QD. pt states that she isn't sure if it is working well for her or not.* Patient is here to discuss control. She is currently not . She was on the control about 3-4 years ago. * She is Covid vaccinated . She received her Influenza vaccinate on 12/03/20. 1) Pt presents today stating she took a test 04/30/21 and it was positive. She states shethinks she has a yeast infection, she states it is itchy.* PPV * EPDS= 5 * Declined Attendant Child Activity: LEONARDA Oquendo * A telephone visit (audio only) between the patient (at the originating site) and the provider (at the distant site) was utilized to provide this telehealth service. * This is a telephone visit due to the COVID-19 Pandemic * 6 wk PPV * Attendant Child Activity Declined: MIKAELA Ty Chief Complaint and Reason for Visit Chief Complaint RULE OUT PRE ECLAMPS IA Chief Complaint Admit Date Annual (SHIPPING & RECEIVING LEAD) May 03, 2024 11:53am Reason for Visit Admit Date Encounter for routine gynecological exam ination May 03, 2024 11:53am Chief Complaint Admit Date Annual (SHIPPING & RECEIVING LEAD) May 03, 2024 11:53am Amb Documentation May 26, 2024 8:2 2am NOB LMP 04/09June 09, 2024 1:05 pm Reason for Visit Admit Date Encounter for routine gynecological exam ination May 03, 2024 11:53am Acute thoracic myofascial strain June 092024 1:05pm AMA (advanced maternal age) multigravida 35+ June 09, 2024 1:05pm Depression June 09, 2024 1:05 pm Herpes simplex type 2 infection June 1:05pm Obesity affecting June 09, 2 025 1:05pm June 09, 2024 1:05 pm Supervision of high-risk June 09, 2024 1:05pm Hypertension June 09, 2024 1:05 pm Chief Complaint Admit Date Annual (SHIPPING & RECEIVING LEAD) May 03, 2024 11:53am Amb Documentation May 26, 2024 8:2 2am NOB LMP 04/09June 09, 2024 1:05 pm 12wk OB July 06, 2024 2:57pm Reason for Visit Admit Date Encounter for routine gynecological exam ination May 03, 2024 11:53am Acute thoracic myofascial strain June 092024 1:05pm AMA (advanced maternal age) multigravida 35+ June 09, 2024 1:05pm Depression June 09, 2024 1:05 pm Herpes simplex type 2 infection June 1:05pm Obesity affecting June 09, 2 025 1:05pm June 09, 2024 1:05 pm Supervision of high-risk June 09, 2024 1:05pm Hypertension June 09, 2024 1:05 pm Acute thoracic myofascial strain July 2:57pm AMA (advanced maternal age) multigravida 35+ July 06, 2024 2:57pm Depression July 06, 2024 2:57pm Herpes simplex type 2 infection July 06, 2024 2:57pm Obesity affecting July 06 2:57pm July 06, 2024 2:57pm Supervision of high-risk July 062024 2:57pm Hypertension July 06, 2024 2:57pm Chief Complaint Admit Date Annual (SHIPPING & RECEIVING LEAD) May 03, 2024 11:53am Amb Documentation May 26, 2024 8:2 2am NOB LMP 04/09June 09, 2024 1:05 pm 12wk OB July 06, 2024 2:57pm OBESITY July 21, 2024 8:53a m July 21, 2024 9:05a m Chief Complaint Admit Date Annual (SHIPPING & RECEIVING LEAD) May 03, 2024 11:53am Amb Documentation May 26, 2024 8:2 2am NOB LMP 04/09June 09, 2024 1:05 pm 12wk OB July 06, 2024 2:57pm OBESITY July 21, 2024 8:53a m July 21, 2024 9:05a m 16wk ob August 02, 2024 10:59 am Reason for Visit Admit Date Encounter for routine gynecological exam ination May 03, 2024 11:53am Acute thoracic myofascial strain June 092024 1:05pm AMA (advanced maternal age) multigravida 35+ June 09, 2024 1:05pm Depression June 09, 2024 1:05 pm Herpes simplex type 2 infection June 1:05pm Obesity affecting June 09, 2 025 1:05pm June 09, 2024 1:05 pm Supervision of high-risk June 09, 2024 1:05pm Hypertension June 09, 2024 1:05 pm Acute thoracic myofascial strain July 2:57pm AMA (advanced maternal age) multigravida 35+ July 06, 2024 2:57pm Depression July 06, 2024 2:57pm Herpes simplex type 2 infection July 06, 2024 2:57pm Obesity affecting July 06 2:57pm July 06, 2024 2:57pm Supervision of high-risk July 062024 2:57pm Hypertension July 06, 2024 2:57pm Acute thoracic myofascial strain July 10:59am AMA (advanced maternal age) multigravida 35+ August 02, 2024 10:59am Depression August 02, 2024 10:59 am Herpes simplex type 2 infection July 10:59am Obesity affecting August 02 10:59am Polycystic disease, ovaries August 02 10:59am August 02, 2024 10:59 am Supervision of high-risk July 072024 10:59am Hypertension August 02, 2024 10:59 am Chief Complaint Admit Date Amb Documentation May 26, 2024 8:2 2am NOB LMP /June 09, 2024 1:05 pm 12wk OB July 06, 2024 2:57pm OBESITY July 21, 2024 8:53a m July 21, 2024 9:05a m 16wk ob August 02, 2024 10:59 am 20wk ob September 01, 2024 2:51 pm Reason for Visit Admit Date Acute thoracic myofascial strain June 092024 1:05pm AMA (advanced maternal age) multigravida 35+ June 09, 2024 1:05pm Depression June 09, 2024 1:05 pm Herpes simplex type 2 infection June 1:05pm Obesity affecting June 09, 2 025 1:05pm June 09, 2024 1:05 pm Supervision of high-risk June 09, 2024 1:05pm Hypertension June 09, 2024 1:05 pm Acute thoracic myofascial strain July 2:57pm AMA (advanced maternal age) multigravida 35+ July 06, 2024 2:57pm Depression July 06, 2024 2:57pm Herpes simplex type 2 infection July 06, 2024 2:57pm Obesity affecting July 06 2:57pm July 06, 2024 2:57pm Supervision of high-risk July 062024 2:57pm Hypertension July 06, 2024 2:57pm Acute thoracic myofascial strain July 10:59am AMA (advanced maternal age) multigravida 35+ August 02, 2024 10:59am Depression August 02, 2024 10:59 am Herpes simplex type 2 infection July 10:59am Obesity affecting August 02 10:59am Polycystic disease, ovaries August 02 10:59am August 02, 2024 10:59 am Supervision of high-risk July 072024 10:59am Hypertension August 02, 2024 10:59 am Acute thoracic myofascial strain September 012024 2:51pm AMA (advanced maternal age) multigravida 35+ September 01, 2024 2:51pm Depression September 01, 2024 2:51 pm Herpes simplex type 2 infection August 2:51pm Obesity affecting September 01, 2 025 2:51pm Polycystic disease, ovaries September 01, 2 025 2:51pm September 01, 2024 2:51 pm Supervision of high-risk September 01, 2024 2:51pm Hypertension September 01, 2024 2:51 pm Chief Complaint Admit Date NOB LMP 2/June 09, 2024 1:05 pm 12wk OB July 06, 2024 2:57pm OBESITY July 21, 2024 8:53a m July 21, 2024 9:05a m 16wk ob August 02, 2024 10:59 am 20wk ob September 01, 2024 2:51 pm 24 wk ob October 02, 2024 9:38 am Reason for Visit Admit Date Acute thoracic myofascial strain June 092024 1:05pm AMA (advanced maternal age) multigravida 35+ June 09, 2024 1:05pm Depression June 09, 2024 1:05 pm Herpes simplex type 2 infection June 1:05pm Obesity affecting June 09 025 1:05pm June 09, 2024 1:05 pm Supervision of high-risk June 09, 2024 1:05pm Hypertension June 09, 2024 1:05 pm Acute thoracic myofascial strain July 2:57pm AMA (advanced maternal age) multigravida 35+ July 06, 2024 2:57pm Depression July 06, 2024 2:57pm Herpes simplex type 2 infection July 06, 2024 2:57pm Obesity affecting July 06 2:57pm July 06, 2024 2:57pm Supervision of high-risk July 062024 2:57pm Hypertension July 06, 2024 2:57pm Acute thoracic myofascial strain July 10:59am AMA (advanced maternal age) multigravida 35+ August 02, 2024 10:59am Depression August 02, 2024 10:59 am Herpes simplex type 2 infection July 10:59am Obesity affecting August 02 10:59am Polycystic disease, ovaries August 02 10:59am August 02, 2024 10:59 am Supervision of high-risk July 072024 10:59am Hypertension August 02, 2024 10:59 am Acute thoracic myofascial strain September 012024 2:51pm AMA (advanced maternal age) multigravida 35+ September 01, 2024 2:51pm Depression September 01, 2024 2:51 pm Herpes simplex type 2 infection August 2:51pm Obesity affecting September 01, 025 2:51pm Polycystic disease, ovaries September 01, 025 2:51pm September 01, 2024 2:51 pm Supervision of high-risk September 01, 2024 2:51pm Hypertension September 01, 2024 2:51 pm Acute thoracic myofascial strain October 022024 9:38am AMA (advanced maternal age) multigravida 35+ October 02, 2024 9:38am Depression October 02, 2024 9:38 am Herpes simplex type 2 infection September 9:38am Obesity affecting October 02, 025 9:38am Polycystic disease, ovaries October 02, 2 025 9:38am October 02, 2024 9:38 am Supervision of high-risk October 02, 2024 9:38am Hypertension October 02, 2024 9:38 am Chief Complaint Admit Date 12wk OB July 06, 2024 2:57pm OBESITY July 21, 2024 8:53a m July 21, 2024 9:05a m 16wk ob August 02, 2024 10:59 am 20wk ob September 01, 2024 2:51 pm 24 wk ob October 02, 2024 9:38 am 28wk ob/glucose October 30, 2024 1: 40pm Reason for Visit Admit Date Acute thoracic myofascial strain July 2:57pm AMA (advanced maternal age) multigravida 35+ July 06, 2024 2:57pm Depression July 06, 2024 2:57pm Herpes simplex type 2 infection July 06, 2024 2:57pm Obesity affecting July 06 2:57pm July 06, 2024 2:57pm Supervision of high-risk July 062024 2:57pm Hypertension July 06, 2024 2:57pm Acute thoracic myofascial strain July 10:59am AMA (advanced maternal age) multigravida 35+ August 02, 2024 10:59am Depression August 02, 2024 10:59 am Herpes simplex type 2 infection July 10:59am Obesity affecting August 02 10:59am Polycystic disease, ovaries August 02 10:59am August 02, 2024 10:59 am Supervision of high-risk July 072024 10:59am Hypertension August 02, 2024 10:59 am Acute thoracic myofascial strain September 012024 2:51pm AMA (advanced maternal age) multigravida 35+ September 01, 2024 2:51pm Depression September 01, 2024 2:51 pm Herpes simplex type 2 infection August 2:51pm Obesity affecting September 01, 2 025 2:51pm Polycystic disease, ovaries September 01, 2 025 2:51pm September 01, 2024 2:51 pm Supervision of high-risk September 01, 2024 2:51pm Hypertension September 01, 2024 2:51 pm Acute thoracic myofascial strain October 022024 9:38am AMA (advanced maternal age) multigravida 35+ October 02, 2024 9:38am Depression October 02, 2024 9:38 am Herpes simplex type 2 infection September 9:38am Obesity affecting October 02, 2 025 9:38am Polycystic disease, ovaries October 02, 2 025 9:38am October 02, 2024 9:38 am Supervision of high-risk October 02, 2024 9:38am Hypertension October 02, 2024 9:38 am Acute thoracic myofascial strain October 30, 2024 1:40pm AMA (advanced maternal age) multigravida 35+ October 30, 2024 1:40pm Depression October 30, 2024 1: 40pm Herpes simplex type 2 infection October 072024 1:40pm Obesity affecting October 30, 2024 1:40pm Polycystic disease, ovaries October 30, 2024 1:40pm October 30, 2024 1: 40pm Supervision of high-risk Augus t 2024 1:40pm Hypertension October 30, 2024 1: 40pm Chief Complaint Admit Date 12wk OB July 06, 2024 2:57pm OBESITY July 21, 2024 8:53a m July 21, 2024 9:05a m 16wk ob August 02, 2024 10:59 am 20wk ob September 01, 2024 2:51 pm 24 wk ob October 02, 2024 9:38 am 29 wk ob/glucose October 30, 2024 1: 40pm Additional Source Comments INFORMATION SOURCE (unrecogn ized section and content) DATE CREATED AUTHOR 04/04/2020 [facility] DATE CREATED AUTHOR AUTHOR'S ORGANIZ ATION 03/01/2022 [facility] DATE CREATED AUTHOR AUTHOR'S ORGANIZ ATION 03/03/2022 [facility] DATE CREATED AUTHOR AUTHOR'S ORGANIZ ATION 08/17/2022 [facility] DATE CREATED AUTHOR AUTHOR'S ORGANIZ ATION 08/15/2023 [facility] ([place]) DATE CREATED AUTHOR AUTHOR'S ORGANIZ ATION 06/25/2024 [facility] DATE CREATED AUTHOR AUTHOR'S ORGANIZ ATION 09/16/2024 [facility] DATE CREATED AUTHOR AUTHOR'S ORGANIZ ATION 11/08/2024 [facility] <item> Privacy Markings (unrecogniz ed section and content) Section Author: Melba Lares PROHIBITION ON REDISCLOSURE OF CONFIDENTIAL INFORMATION This notice accompanies a disclosure of information concerning a client made to you with the consent of such client. Goals (unrecognized section and content) Goals may be documented in a n alternate section No data available for this sectionGoals may be documented in an alternate sectionGoals may be documented in an alternate sectionGoals may be documented in an alternate sectionGoals may be documented in an alternate sectionGoals may be documented in an alternate sectionGoals may be documented in an alternate sectionGoals may be documented in an alternate sectionGoals may be documented in an alternate sectionGoals may be documented in an alternate sectionGoals may be documented in an alternate section Patient Care team informatio n (unrecognized section and content) Team Status: Inactive Member Role Status Dates Carmen Perdomo CNM Attending Provider Active S tart: May 03, 2024 End: May 03, 2024 Team Status: Inactive Member Role Status Dates Carmen Perdomo CNM Attending Provider Active S tart: May 03, 2024 End: May 03, 2024 Carmen Perdomo CNM Referring Provider Active S tart: May 03, 2024 End: May 03, 2024 Team Status: Active Member Role Status Dates Andressa Schmitz RN Attending Provider Active St art: May 26, 2024 Team Status: Inactive Member Role Status Dates Carmen Perdomo CNM Attending Provider Active S tart: June 09, 2024 End: June 09, 2024 Team Status: Inactive Member Role Status Dates Carmen Perdomo CNM Attending Provider Active S tart: June 09, 2024 End: June 09, 2024 Carmen Perdomo CNM Referring Provider Active S tart: June 09, 2024 End: June 09, 2024 Team Status: Active Member Role Status Dates Dr. Judie Bella MD Primary Care Provider Active Team Status: Inactive Member Role Status Dates Dr. Tawana Timmons MD Attending Provider Active Start: July 06, 2024 End: July 06, 2024 Team Status: Inactive Member Role Status Dates Carmen Perdomo CNM Attending Provider Active S tart: July 06, 2024 End: July 06, 2024 Dr. Tawana Timmons MD Referring Provider Active Start: July 06, 2024 End: July 06, 2024 Team Status: Inactive Member Role Status Dates Dr. Tawana Timmons MD Attending Provider Active Start: July 21, 2024 End: July 21, 2024 Dr. Tawana Timmons MD Referring Provider Active Start: July 21, 2024 End: July 21, 2024 Dr. Judie Bella MD Primary Care Provider Active Start: July 21, 2024 End: July 21, 2024 Team Status: Active Member Role Status Dates Dr. Judie Bella MD Primary Care Provider Active Start: July 21, 2024 End: July 21, 2024 Dr. Arnulfo Gilmore MD Attending Provider Active S tart: July 21, 2024 End: July 21, 2024 Dr. Tawana Timmons MD Referring Provider Active Start: July 21, 2024 End: July 21, 2024 Team Status: Inactive Member Role Status Dates Dr. Judie Bella MD Primary Care Provider Active Start: August 02, 2024 End: August 02, 2024 Dr. Judie Bella MD Referring Provider Active Start: August 02, 2024 End: August 02, 2024 Dr. Anh Song DO Attending Provider Activ e Start: August 02, 2024 End: August 02, 2024 Team Status: Inactive Member Role Status Dates Dr. Judie Bella MD Primary Care Provider Active Start: August 02, 2024 End: August 02, 2024 Dr. Tawana Timmons MD Attending Provider Active Start: August 02, 2024 End: August 02, 2024 Dr. Tawana Timmons MD Referring Provider Active Start: August 02, 2024 End: August 02, 2024 Team Status: Active Member Role/Relationship Status Dates Dr. Judie Bella MD Primary Care Provider Active Team Status: Active Member Role/Relationship Status Dates Andressa Schmitz RN Attending Provider Active St art: May 26, 2024 Team Status: Inactive Member Role/Relationship Status Dates Carmen Perdomo CNM Attending Provider Active S tart: June 09, 2024 End: June 09, 2024 Team Status: Inactive Member Role/Relationship Status Dates Carmen Perdomo CNM Attending Provider Active S tart: June 09, 2024 End: June 09, 2024 Carmen Perdomo CNM Referring Provider Active S tart: June 09, 2024 End: June 09, 2024 Team Status: Inactive Member Role/Relationship Status Dates Dr. Tawana Timmons MD Attending Provider Active Start: July 06, 2024 End: July 06, 2024 Team Status: Inactive Member Role/Relationship Status Dates Carmen Perdomo CNM Attending Provider Active S tart: July 06, 2024 End: July 06, 2024 Dr. Tawana Timmons MD Referring Provider Active Start: July 06, 2024 End: July 06, 2024 Team Status: Inactive Member Role/Relationship Status Dates Dr. Tawana Timmons MD Attending Provider Active Start: July 21, 2024 End: July 21, 2024 Dr. Tawana Timmons MD Referring Provider Active Start: July 21, 2024 End: July 21, 2024 Dr. Judie Bella MD Primary Care Provider Active Start: July 21, 2024 End: July 21, 2024 Team Status: Active Member Role/Relationship Status Dates Dr. Judie Bella MD Primary Care Provider Active Start: July 21, 2024 End: July 21, 2024 Dr. Arnulfo Gilmore MD Attending Provider Active S tart: July 21, 2024 End: July 21, 2024 Dr. Tawana Timmons MD Referring Provider Active Start: July 21, 2024 End: July 21, 2024 Team Status: Inactive Member Role/Relationship Status Dates Dr. Judie Bella MD Primary Care Provider Active Start: August 02, 2024 End: August 02, 2024 Dr. Judie Bella MD Referring Provider Active Start: August 02, 2024 End: August 02, 2024 Dr. Anh Song DO Attending Provider Activ e Start: August 02, 2024 End: August 02, 2024 Team Status: Inactive Member Role/Relationship Status Dates Dr. Judie Bella MD Primary Care Provider Active Start: August 02, 2024 End: August 02, 2024 Dr. Tawana Timmons MD Attending Provider Active Start: August 02, 2024 End: August 02, 2024 Dr. Tawana Timmons MD Referring Provider Active Start: August 02, 2024 End: August 02, 2024 Team Status: Inactive Member Role/Relationship Status Dates Dr. Anh Song DO Attending Provider Activ e Start: September 01, 2024 End: September 01, 2024 Dr. Judie Bella MD Primary Care Provider Active Start: September 01, 2024 End: September 01, 2024 Dr. Judie Bella MD Referring Provider Active Start: September 01, 2024 End: September 01, 2024 Team Status: Inactive Member Role/Relationship Status Dates Carmen Perdomo CNM Attending Provider Active S tart: June 09, 2024 End: June 09, 2024 Team Status: Inactive Member Role/Relationship Status Dates Carmen Perdomo CNM Attending Provider Active S tart: June 09, 2024 End: June 09, 2024 Carmen Perdomo CNM Referring Provider Active S tart: June 09, 2024 End: June 09, 2024 Team Status: Inactive Member Role/Relationship Status Dates Dr. Tawana Timmons MD Attending Provider Active Start: July 06, 2024 End: July 06, 2024 Team Status: Inactive Member Role/Relationship Status Dates Carmen Perdomo CNM Attending Provider Active S tart: July 06, 2024 End: July 06, 2024 Dr. Tawana Timmons MD Referring Provider Active Start: July 06, 2024 End: July 06, 2024 Team Status: Inactive Member Role/Relationship Status Dates Dr. Tawana Timmons MD Attending Provider Active Start: July 21, 2024 End: July 21, 2024 Dr. Tawana Timmons MD Referring Provider Active Start: July 21, 2024 End: July 21, 2024 Dr. Judie Bella MD Primary Care Provider Active Start: July 21, 2024 End: July 21, 2024 Team Status: Active Member Role/Relationship Status Dates Dr. Judie Bella MD Primary Care Provider Active Start: July 21, 2024 End: July 21, 2024 Dr. Arnulfo Gilmore MD Attending Provider Active S tart: July 21, 2024 End: July 21, 2024 Dr. Tawana Timmons MD Referring Provider Active Start: July 21, 2024 End: July 21, 2024 Team Status: Inactive Member Role/Relationship Status Dates Dr. Judie Bella MD Primary Care Provider Active Start: August 02, 2024 End: August 02, 2024 Dr. Judie Bella MD Referring Provider Active Start: August 02, 2024 End: August 02, 2024 Dr. Anh Song DO Attending Provider Activ e Start: August 02, 2024 End: August 02, 2024 Team Status: Inactive Member Role/Relationship Status Dates Dr. Judie Bella MD Primary Care Provider Active Start: August 02, 2024 End: August 02, 2024 Dr. Tawana Timmons MD Attending Provider Active Start: August 02, 2024 End: August 02, 2024 Dr. Tawana Timmons MD Referring Provider Active Start: August 02, 2024 End: August 02, 2024 Team Status: Inactive Member Role/Relationship Status Dates Dr. Anh Song DO Attending Provider Activ e Start: September 01, 2024 End: September 01, 2024 Dr. Judie Bella MD Primary Care Provider Active Start: September 01, 2024 End: September 01, 2024 Dr. Judie Bella MD Referring Provider Active Start: September 01, 2024 End: September 01, 2024 Team Status: Inactive Member Role/Relationship Status Dates Carmen Perdomo CNM Attending Provider Active S tart: October 02, 2024 End: October 02, 2024 Dr. Judie Bella MD Primary Care Provider Active Start: October 02, 2024 End: October 02, 2024 Dr. Judie Bella MD Referring Provider Active Start: October 02, 2024 End: October 02, 2024 Team Status: Inactive Member Role/Relationship Status Dates Dr. Tawana Timmons MD Attending Provider Active Start: July 06, 2024 End: July 06, 2024 Team Status: Inactive Member Role/Relationship Status Dates Carmen Perdomo CNM Attending Provider Active S tart: July 06, 2024 End: July 06, 2024 Dr. Tawana Timmons MD Referring Provider Active Start: July 06, 2024 End: July 06, 2024 Team Status: Inactive Member Role/Relationship Status Dates Dr. Tawana Timmons MD Attending Provider Active Start: July 21, 2024 End: July 21, 2024 Dr. Tawana Timmons MD Referring Provider Active Start: July 21, 2024 End: July 21, 2024 Dr. Judie Bella MD Primary Care Provider Active Start: July 21, 2024 End: July 21, 2024 Team Status: Active Member Role/Relationship Status Dates Dr. Judie Bella MD Primary Care Provider Active Start: July 21, 2024 End: July 21, 2024 Dr. Arnulfo Gilmore MD Attending Provider Active S tart: July 21, 2024 End: July 21, 2024 Dr. Tawana Timmons MD Referring Provider Active Start: July 21, 2024 End: July 21, 2024 Team Status: Inactive Member Role/Relationship Status Dates Dr. Judie Bella MD Primary Care Provider Active Start: August 02, 2024 End: August 02, 2024 Dr. Judie Bella MD Referring Provider Active Start: August 02, 2024 End: August 02, 2024 Dr. Anh Song DO Attending Provider Activ e Start: August 02, 2024 End: August 02, 2024 Team Status: Inactive Member Role/Relationship Status Dates Dr. Judie Bella MD Primary Care Provider Active Start: August 02, 2024 End: August 02, 2024 Dr. Tawana Timmons MD Attending Provider Active Start: August 02, 2024 End: August 02, 2024 Dr. Tawana Timmons MD Referring Provider Active Start: August 02, 2024 End: August 02, 2024 Team Status: Inactive Member Role/Relationship Status Dates Dr. Anh Song DO Attending Provider Activ e Start: September 01, 2024 End: September 01, 2024 Dr. Judie Bella MD Primary Care Provider Active Start: September 01, 2024 End: September 01, 2024 Dr. Judie Bella MD Referring Provider Active Start: September 01, 2024 End: September 01, 2024 Team Status: Inactive Member Role/Relationship Status Dates Cramen Perdomo CNM Attending Provider Active S tart: October 02, 2024 End: October 02, 2024 Dr. Judie Bella MD Primary Care Provider Active Start: October 02, 2024 End: October 02, 2024 Dr. Judie Bella MD Referring Provider Active Start: October 02, 2024 End: October 02, 2024 Team Status: Active Member Role/Relationship Status Dates Dr. Judie Bella MD Primary Care Provider Active Start: October 30, 2024 Carmen Perdomo CNM Attending Provider Active S tart: October 30, 2024 Carmen Perdomo CNM Referring Provider Active S tart: October 30, 2024 Team Status: Inactive Member Role/Relationship Status Dates Dr. Judie Bella MD Primary Care Provider Active Start: October 30, 2024 End: October 30, 2024 Dr. Judie Bella MD Referring Provider Active Start: October 30, 2024 End: October 30, 2024 Carmen Perdomo CNM Attending Provider Active S tart: October 30, 2024 End: October 30, 2024 Team Status: Inactive Member Role/Relationship Status Dates Dr. Judie Bella MD Primary Care Provider Active Start: October 30, 2024 End: October 30, 2024 Carmen Perdomo CNM Attending Provider Active S tart: October 30, 2024 End: October 30, 2024 Carmen Perdomo CNM Referring Provider Active S tart: October 30, 2024 End: October 30, 2024 FOR RECORDS PERTAINING TO PATIENTS WHO ARE OR HAVE BEEN ENROLLED IN A CHEMICAL DEPENDENCY/SUBSTANCEABUSE PROGRAM, SOME INFORMATION MAY BE OMITTED. This clinical summary was aggregated from multiple sources. Caution should be exercised in using it in the provision of clinical care. This summary normalizes information from multiple sources, and as a consequence, information in this document may materially change the coding, format and clinical context of patient data. In addition, data may be omitted in some cases. CLINICAL DECISIONS SHOULD BE BASED ON THE PRIMARY CLINICAL RECORDS. [facility] [employer] provides no warranty or guarantee of the accuracy or completeness of information in this document.
[2024-11-10 07:19] LABS: Glucose GTT-Gestation. Fasting 88 mg/dL (<105)
[2024-11-10 09:38] LABS: Glucose GTT-Gestational 1 Hr 165 mg/dL (<190)
[2024-11-10 10:40] LABS: Glucose GTT-Gestational 2 Hr 146 mg/dL (<165)
[2024-11-10 11:17] LABS: Glucose GTT-Gestational 3 Hr 138 L (<145)
== END | disposition home or self-care (01) ==
PROVIDERS: PCP Family Medicine; Referring Provider Advanced Practice Midwife; Visit Provider Advanced Practice Midwife
DX: O99.810 Abnormal glucose complicating pregnancy (principal); Z3A.00 Weeks of gestation of pregnancy not specified
CPT/HCPCS: 36415; 82951; 82952

== ENCOUNTER → 2024-11-20 | Outpatient (CLI) | payer OTHER, BC, SELFPAY ==
--- NOTE | 2024-11-20 16:00 | US_ITS ---
PROCEDURE: OB BIOPHYSICAL PROF W/O NST 11/20/2024 REASON FOR EXAM: 32WK BPP, WELLBEING TECHNIQUE: Procedure Code: USBIOWO Modality: US Procedure: OB BIOPHYSICAL PROF W/O NST COMPARISON: None FINDINGS Number: 1 Position: Breech Placental Position: Posterior and not low-lying. Placental Abnormalities: No evidence of previa. ESTIMATED GESTATIONAL AGE: Baseline: 32 weeks and 1 day ESTIMATED DATE OF DELIVERY: Baseline: January 14, 2025 BIOPHYSICAL ASSESSMENT: Amniotic Fluid Volume: 3.9 cm Amniotic Fluid Index: 15.9 cm (8-24 cm normal range) Cardiac Motion: 132 beats per minute (average) Trunk and Limb Motion: Present. MATERNAL ANATOMY: Adnexa: Neither maternal ovary is successfully identified. Biophysical profile: Breathing movements: 2 Gross body movements: 2 tone: 2 Amniotic fluid volume: 2 Total score: 8/8 US/OB Biophysical Prof W/O NST IMPRESSION: Normal biophysical profile score of 8/8. Reading Location: [place] [id number]
--- NOTE | 2024-11-20 16:00 | US_ITS ---
PROCEDURE: OB LIMITED WITH BIOMETRICS 11/20/2024 REASON FOR EXAM: 32WK GROWTH US TECHNIQUE: Procedure Code: [id number] Modality: US Procedure: OB LIMITED WITH BIOMETRICS COMPARISON: None FINDINGS Number: 1 Position: Breech Placental Position: Posterior and not low-lying Placental Abnormalities: No evidence of previa. DIMENSIONS: Biparietal Diameter: 7.9 cm: 31 weeks and 5 days: 28 percentile./ Head Circumference: 31 cm: 34 weeks and 4 days: 79 percentile/ Abdominal Circumference: 29.7 cm: 33 weeks and 5 days: 88 percentile/ Femur Length: 5.8 cm: 30 weeks and 3 days: 5th percentile/ ESTIMATED WEIGHT: 2023 g plus/-209 9 g ESTIMATED WEIGHT PERCENTILE (24+ weeks): 56 percentile ESTIMATED GESTATIONAL AGE: Baseline: 32 weeks and 1 day By Ultrasound: 33 weeks and 2 days ESTIMATED DATE OF DELIVERY: Baseline: January 14, 2025 By Ultrasound: January 06, 2025 BIOPHYSICAL ASSESSMENT: Amniotic Fluid Volume: 5.8 cm Amniotic Fluid Index: 16 point 2 cm (8-24 cm normal range) Cardiac Motion: (average) Trunk and Limb Motion: Present. MATERNAL ANATOMY: Adnexa: Neither maternal ovary is successfully identified. US/OB Limited With Biometrics IMPRESSION: Single live intrauterine gestation with a mean gestational age of 33 weeks and 2 days. Reading Location: [place] [id number]
== END | disposition home or self-care (01) ==
LOC: US 15:57
PROVIDERS: PCP Family Medicine; Referring Provider Advanced Practice Midwife; Visit Provider Advanced Practice Midwife
DX: O99.210 Obesity complicating pregnancy, unspecified trimester (principal); O09.529 Supervision of elderly multigravida, unspecified trimester; Z3A.32 32 weeks gestation of pregnancy; O16.3 Unspecified maternal hypertension, third trimester
CPT/HCPCS: 76816; 76819

== ENCOUNTER → 2024-11-30 | Outpatient (CLI) | payer OTHER, BC, SELFPAY ==
--- NOTE | 2024-11-30 08:57 | US_ITS ---
PROCEDURE: OB BIOPHYSICAL PROF W/O NST 11/30/2024 REASON FOR EXAM: 33WK BPP, WELLBEING TECHNIQUE: Procedure Code: USBIOWO Modality: US Procedure: OB BIOPHYSICAL PROF W/O NST COMPARISON: November 20, 2024 FINDINGS heart rate = 150 beats per minute position = transverse right age by LMP = 33 weeks 4 days, 01/14/2025 Breathing movement equal 2 Gross body movement equal 2 tone equals 2 Amniotic fluid volume equal 2 Total score = 8/8 JOHN = 15.3 Placenta grade = 1 US/OB Biophysical Prof W/O NST IMPRESSION: Biophysical profile = 8/8. Reading Location: [place]
== END | disposition home or self-care (01) ==
LOC: US 08:56
PROVIDERS: PCP Family Medicine; Referring Provider Advanced Practice Midwife; Visit Provider Advanced Practice Midwife
DX: O99.213 Obesity complicating pregnancy, third trimester (principal); Z3A.33 33 weeks gestation of pregnancy; O16.3 Unspecified maternal hypertension, third trimester
CPT/HCPCS: 76819

== ENCOUNTER → 2024-12-08 | Outpatient (CLI) | payer OTHER, BC, SELFPAY ==
--- NOTE | 2024-12-08 07:59 | US_ITS ---
PROCEDURE: OB BIOPHYSICAL PROF W/O NST 12/08/2024 REASON FOR EXAM: 34WK BPP, WELL BEING TECHNIQUE: Procedure Code: USBIOWO Modality: US Procedure: OB BIOPHYSICAL PROF W/O NST COMPARISON: Prior study dated November 30, 2024. FINDINGS Number: 1 Position: Breech Placental Position: Posterior and not low-lying. Placental Abnormalities: No evidence of previa. ESTIMATED GESTATIONAL AGE: Baseline: 34 weeks and 5 days ESTIMATED DATE OF DELIVERY: Baseline: January 14, 2025. BIOPHYSICAL ASSESSMENT: Amniotic Fluid Volume: 4.4 Amniotic Fluid Index: 15.1 (8-24 cm normal range) Cardiac Motion: 139 beats per minute (average) Trunk and Limb Motion: Present. Biophysical profile: Breathing movements: 2 Gross body movements: 2 tone: 2 Amniotic fluid volume: 2 Total score: 8/8 US/OB Biophysical Prof W/O NST IMPRESSION: Normal biophysical profile. Reading Location: [place]
== END | disposition home or self-care (01) ==
LOC: OPUS 07:56
PROVIDERS: PCP Family Medicine; Referring Provider Advanced Practice Midwife; Visit Provider Advanced Practice Midwife
DX: O99.213 Obesity complicating pregnancy, third trimester (principal); O10.913 Unspecified pre-existing hypertension complicating pregnancy, third trimester; Z3A.34 34 weeks gestation of pregnancy
CPT/HCPCS: 76819

== ENCOUNTER 2024-12-13 11:27 | Outpatient (CLI) | payer OTHER, BC, SELFPAY ==
[2024-12-13 11:48] VITALS: BP 127/86; PULSE 96; RESP 18; TEMP 36.9; O2SAT 98
[2024-12-13 11:55] VITALS: BMI 50.3
--- NOTE | 2024-12-14 00:10 | OB.TRI.PN_ITS ---
Progress Notes Date of Service: 12/13/24 Progress Note: Patient presents for triage evaluation secondary to 08/13 bpp FHT: 135 Moderate variability reactive no decelerations category I tracing [place]: no regular Contractions Assessment and plan: 35 weeks abnormal testing 10/15 bpp overall reassuring Reactive NST, reassuring maternal and status patient discharged to home to follow-up []. See problem list details for additional plan information. Charges/Coding Procedures Urinary/Genital [id number]: [id number] non-stress test Interp
== END 2024-12-13 12:25 | disposition home or self-care (01) ==
LOC: WPOUT 11:33 → WP 11:34
PROVIDERS: PCP Family Medicine; Referring Provider Obstetrics & Gynecology; Visit Provider Obstetrics & Gynecology
DX: O28.9 Unspecified abnormal findings on antenatal screening of mother (principal); Z3A.35 35 weeks gestation of pregnancy
CPT/HCPCS: 59025; 59050; 99221; G0378

== ENCOUNTER → 2024-12-13 | Outpatient (CLI) | payer OTHER, BC, SELFPAY ==
--- NOTE | 2024-12-13 09:42 | US_ITS ---
PROCEDURE: OB BIOPHYSICAL PROF W/O NST 12/13/2024 REASON FOR EXAM: 35WK BPP, WELLBEING TECHNIQUE: Procedure Code: USBIOWO Modality: US Procedure: OB BIOPHYSICAL PROF W/O NST COMPARISON: December 08, 2024, November 30, 2024, November 20, 2024 FINDINGS Number: 1 Position: Vertex Placental Position: Posterior and fundal Placental Abnormalities: None. ESTIMATED GESTATIONAL AGE: 35 weeks, 3 days by report BIOPHYSICAL ASSESSMENT: Amniotic Fluid Volume: Subjectively normal. Amniotic Fluid Index: 14.5 cm (8-24 cm normal range) Cardiac Motion: 116 (average) Trunk and Limb Motion: Present. Amniotic Fluid Volume: 2/2 Movements: 2/2 Tone: 2/2 Breathin/2 Note: Discussed the findings with the technologist. She reported there was no significant breathing activity over the course of the 30 minute evaluation. Total: 08/13 US/OB Biophysical Prof W/O NST IMPRESSION: BIOPHYSICAL PROFILE SCORE 6/8. breathing/diaphragm movement was not seen during this examination. Close clinical follow-up suggested. Vertex presentation. Normal amniotic fluid volume. Technologist stated she alerted the ordering physician. The patient was return ed to the office for monitoring. Reading Location: [place]
== END | disposition home or self-care (01) ==
LOC: US 09:41
PROVIDERS: PCP Family Medicine; Referring Provider Advanced Practice Midwife; Visit Provider Advanced Practice Midwife
DX: O99.210 Obesity complicating pregnancy, unspecified trimester (principal); O10.913 Unspecified pre-existing hypertension complicating pregnancy, third trimester; Z3A.35 35 weeks gestation of pregnancy
CPT/HCPCS: 76819

== ENCOUNTER → 2024-12-21 | Outpatient (CLI) | payer OTHER, BC, SELFPAY ==
--- NOTE | 2024-12-21 12:05 | US_ITS ---
PROCEDURE: OB BIOPHYSICAL PROF W/O NST 12/21/2024 REASON FOR EXAM: 36WK BPP, WELLBEING TECHNIQUE: Procedure Code: USBIOWO Modality: US Procedure: OB BIOPHYSICAL PROF W/O NST COMPARISON: Prior study dated December 13, 2024. FINDINGS Number: 1 Position: Oblique right Placental Position: Posterior and not low-lying Placental Abnormalities: No evidence of previa. ESTIMATED GESTATIONAL AGE: Baseline: 36 weeks and 4 days ESTIMATED DATE OF DELIVERY: Baseline: January 14, 2025 BIOPHYSICAL ASSESSMENT: Amniotic Fluid Volume: 5.6 cm Amniotic Fluid Index: 18.2 (8-24 cm normal range) Cardiac Motion: 157 beats per minute (average) Trunk and Limb Motion: Present. Biophysical profile: Breathing movements: 2 Gross body movements: 2 tone: 2 Amniotic fluid volume: 2 Total score: 8/8 US/OB Biophysical Prof W/O NST IMPRESSION: Normal biophysical profile score of 8/8 Reading Location: [place] [id number]
--- NOTE | 2024-12-21 12:05 | US_ITS ---
PROCEDURE: OB LIMITED WITH BIOMETRICS 12/21/2024 REASON FOR EXAM: 36WK OB, WELLBEING TECHNIQUE: Procedure Code: [email or web address] Modality: US Procedure: OB LIMITED WITH BIOMETRICS COMPARISON: Prior study dated November 20, 2024. FINDINGS Number: 1 Position: Oblique right Placental Position: Posterior and not low-lying Placental Abnormalities: No evidence of previa. DIMENSIONS: Biparietal Diameter: 9.1 cm: 36 weeks and 6 days: 70 percentile/ Head Circumference: 33 cm: 37 weeks and 3 days: 44 percentile/ Abdominal Circumference: 32.4 cm: 36 weeks and 2 days: 56 percentile/ Femur Length: 7 cm: 35 weeks and 6 days: 28 percentile/ ESTIMATED WEIGHT: 2934 g plus/-440 g ESTIMATED WEIGHT PERCENTILE (24+ weeks): 50 ESTIMATED GESTATIONAL AGE: Baseline: 36 weeks and 4 days By Ultrasound: 37 weeks and 0 days ESTIMATED DATE OF DELIVERY: Baseline: January 14, 2025 By Ultrasound: January 11, 2025 BIOPHYSICAL ASSESSMENT: Amniotic Fluid Volume: 17.1 cm Amniotic Fluid Index: 6 (8-24 cm normal range) Cardiac Motion: 157 beats per minute (average) Trunk and Limb Motion: Present. US/OB Limited With Biometrics IMPRESSION: Single live intrauterine gestation with a mean gestational age of 37 weeks. Amniotic fluid index is decreased measuring 6 cm. Reading Location: [place] [id number]
--- NOTE | 2024-12-21 12:05 | US_ITS ---
PROCEDURE: OB LIMITED WITH BIOMETRICS 12/21/2024 REASON FOR EXAM: 36WK OB, WELLBEING TECHNIQUE: Procedure Code: [email or web address] Modality: US Procedure: OB LIMITED WITH BIOMETRICS COMPARISON: Prior study dated November 20, 2024. FINDINGS Number: 1 Position: Oblique right Placental Position: Posterior and not low-lying Placental Abnormalities: No evidence of previa. DIMENSIONS: Biparietal Diameter: 9.1 cm: 36 weeks and 6 days: 70 percentile/ Head Circumference: 33 cm: 37 weeks and 3 days: 44 percentile/ Abdominal Circumference: 32.4 cm: 36 weeks and 2 days: 56 percentile/ Femur Length: 7 cm: 35 weeks and 6 days: 28 percentile/ ESTIMATED WEIGHT: 2934 g plus/-440 g ESTIMATED WEIGHT PERCENTILE (24+ weeks): 50 ESTIMATED GESTATIONAL AGE: Baseline: 36 weeks and 4 days By Ultrasound: 37 weeks and 0 days ESTIMATED DATE OF DELIVERY: Baseline: January 14, 2025 By Ultrasound: January 11, 2025 BIOPHYSICAL ASSESSMENT: Amniotic Fluid Volume: 17.1 cm Amniotic Fluid Index: 6 (8-24 cm normal range) Cardiac Motion: 157 beats per minute (average) Trunk and Limb Motion: Present. US/OB Limited With Biometrics IMPRESSION: Single live intrauterine gestation with a mean gestational age of 37 weeks. Amniotic fluid index is decreased measuring 6 cm. Reading Location: [place] [id number]
--- NOTE | 2024-12-21 12:05 | US_ITS ---
PROCEDURE: OB BIOPHYSICAL PROF W/O NST 12/21/2024 REASON FOR EXAM: 36WK BPP, WELLBEING TECHNIQUE: Procedure Code: USBIOWO Modality: US Procedure: OB BIOPHYSICAL PROF W/O NST COMPARISON: Prior study dated December 13, 2024. FINDINGS Number: 1 Position: Oblique right Placental Position: Posterior and not low-lying Placental Abnormalities: No evidence of previa. ESTIMATED GESTATIONAL AGE: Baseline: 36 weeks and 4 days ESTIMATED DATE OF DELIVERY: Baseline: January 14, 2025 BIOPHYSICAL ASSESSMENT: Amniotic Fluid Volume: 5.6 cm Amniotic Fluid Index: 18.2 (8-24 cm normal range) Cardiac Motion: 157 beats per minute (average) Trunk and Limb Motion: Present. Biophysical profile: Breathing movements: 2 Gross body movements: 2 tone: 2 Amniotic fluid volume: 2 Total score: 8/8 US/OB Biophysical Prof W/O NST IMPRESSION: Normal biophysical profile score of 8/8 Reading Location: [place] [id number]
== END | disposition home or self-care (01) ==
LOC: US 12:04
PROVIDERS: PCP Family Medicine; Referring Provider Advanced Practice Midwife; Visit Provider Advanced Practice Midwife
DX: O99.210 Obesity complicating pregnancy, unspecified trimester (principal); O09.529 Supervision of elderly multigravida, unspecified trimester; Z3A.36 36 weeks gestation of pregnancy; O16.9 Unspecified maternal hypertension, unspecified trimester
CPT/HCPCS: 76816; 76819

== ENCOUNTER → 2024-12-21 | Outpatient (CLI) | payer OTHER, BC, SELFPAY ==
--- OUTSIDE RECORDS SUMMARY | 2024-12-21 17:04 | XMS RPT_ITS | CCD ---
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 Name Role Phone Escolas, Celio Unavailable Unavailable Rafiq Dyson Unavailable Unavailable Ericka Singer Unavailable Unavailable Escolas, Celio W Unavailable Unavailable Misehl Cartagena Unavailable Unavailable Bridger Patel Unavailable Unavailable Gera Flanagan Unavailable Unavailable Zayda Espinosa Unavailable Unavailable OBGYN IVF RDMS [id number], MG OBGYN Unavailable Unavailable Escolas, Celio W Unavailable Unavailable Unavailable Mike Nicholson Unavailable Unavailable Haley Méndez Unavailable Unavailable Unavailable Unavailable Escolas, Celio Unavailable Sarina Hall Unavailable Tom Bull Unavailable Suki You Unavailable Unavailable [...] Petr-Banak, Ms. Tom Buitrago Referring Unavailable ESCOLAS, [facility] Primary Care Unavailable Petr-Banak, Ms. Tom Buitrago [...] Unavailable ESCOLAS, CELIO Hankins Primary Care Unavailable CataulaKrystal Attending Unavailable Petr-Banak, Ms. Tom Buitrago Referring [...] ailable ESCOLAS, CELIO W Primary Care Unavailable Pter-Banak, Ms. Tom Buitrago Referring Unavailable Petr-Banak, Ms. Tom Buitrago Attending Unavailable ESCOLAS, CELIO W Primary Care Unavailable You, Suki Referring Unavailable You, Suki Attending Unavailable ESCOLAS, CELIO W Primary Care Unavailable ESCOLAS, CELIO W Primary Care Unavailable PHYSICIAN, NOT RECORDED Primary Care Physician U navailable JOSEPH DEL CID DO Attending Unavailable LIZETH GOLDSTEINN-QUALITY ASSURANCE ASSISTANT, SANJANA Roman Primary Care UnaCarmen Myles CNM Attending Provider [phone] Carmen Perdomo CNM Referring Provider [phone] Andressa Schmitz RN Attending Provider Unavailabl e ESCOLAS, CELIO W Attending Unavailable ESCOLAS, CELIO W Primary Care Unavailable Dr. Tawana Timmons MD Attending Provider Dr. Tawana Timmosn MD Referring Provider [phone] Dr. Judie Bella MD Primary Care Provider Dr. Arnulfo Gilmore MD Attending Provider Dr. Judie Bella MD Referring Provider Dr. Anh Song DO Attending Provider Carmen Perdomo CNM Attending Provider [phone] Carmen Perdomo CNM Referring Provider [phone] NO PRIMARY CARE, Primary Care Unavailable TIM BAH Attending Unavailable TAWANA TIMMONS Referring Unavailabl e MIEDEL, JUDIE E Primary Care Unavailable GOPI GONZALEZ Attending Unavailable TAWANA TIMMONS Referring Unavailabl e Conor SHAYM, Carmen Attending Provider [phone] Conor CNM, Carmen Referring Provider [phone] Dr. Tawana Timmons MD Attending Provider Pennie DE LA CRUZ, Dr. Gilliam Referring Provider Conor SHAYM, Carmen Attending Provider [phone] Shayne DE LA CRUZ, Dr. Dimas Primary Care Physician [phone] Abram Soto DO, Dr. Kamara Attending Physician Pennie DE LA CRUZ, Dr. Gilliam Attending Physician Dr. Tawana Timmons MD Referring Provider Conor SHAY, Carmen Attending Physician [phone] Abram Soto DO, Dr. Kamara Attending Physician Shayne DE LA CRUZ, Dr. Dimas Primary Care Physician [phone] Shayne DE LA CRUZ, Dr. Dimas Referring Provider [phone] Dr. Tawana Timmons MD Attending Physician Cristel MYERS-Ade Mancini Attending Physician [phone] Pennie DE LA CRUZ, Dr. Gilliam Referring Provider [phone] Andressa Schmitz Attending Unavailable Miedel, Judie Primary Care Unavailable Carmen Perdomo Referring Unavailable Carmen Perdomo Attending Unavailable Miedel, Judie Primary Care Unavailable Carmen Perdomo Referring Unavailable Carmen Perdomo Attending Unavailable Miedel, Judie Primary Care Unavailable Tawana Timmons Attending Unavailable Tawana Timmons Referring Unavailable Miedel, Judie Referring Unavailable Anh Song Attending Unavailabl e Miedel, Judie Primary Care Unavailable Miedel, Judie Referring Unavailable Aed Fam NP Attending Unavailable Miedel, Judie Primary Care Unavailable Conor, Carmen Attending Unavailable Conor, Carmen Attending Unavailable MarcanthonyTawana Attending Unavailable [facility] Unavailable Conor, Carmen Referring Unavailable Conor, Carmen Attending Unavailable MarcanthonyTawana Referring Unavailable Conor, Carmen Attending Unavailable [facility] Unavailable Conor, Carmen Attending Unavailable Conor, Carmen Referring Unavailable [facility] Unavailable Mied, Judie Referring Unavailable Conor, Carmen Attending Unavailable [facility] Primary Care Unavailable Aked, Judie Referring Unavailable Conor, Carmen Attending Unavailable [facility] Primary Care Unavailable [facility], Judie Referring Unavailable Anh Song Attending [facility] Unavailable [facility], Judei Referring Unavailable Anh Song Attending [facility] Primary Care Unavailable Conor, Carmen Referring Unavailable Conor, Carmen Attending Unavailable [facility] Primary Care Unavailable Tawana Timmons Attending Unavailable Tawana Timmons Referring Unavailable [facility] Primary Care Unavailable Conor, Carmen Referring Unavailable Conor, Carmen Attending Unavailable [facility] Primary [facility] Unavailable Conor, Carmen Attending Unavailable Conor, Carmen Referring Unavailable Conor, Carmen Referring Unavailable Conor, Carmen Attending Unavailable [facility], Judie Referring Unavailable MarcallenonyTawana Attending Unavailable [facility] Primary Care Unavailable [facility], [place] Primary Care Unavailable Miedel, Judie Referring Unavailable Conor, Carmen Attending Unavailable [facility] Primary Care Unavailable OlivieronyTawana Referring Unavailable Arnulfo Gilmore Attending Unavailable [facility] Primary Care Unavailable Tawana Timmons Attending Unavailable AldoanthonyTawana Consulting Unavailable MarcanthonyTawana Referring Unavailable Mied, Judie Referring Unavailable MarcanthonyTawana Attending Unavailable [facility] Primary Care Unavailable Conor, Carmen Referring Unavailable Conor Carmen Attending Unavailable [facility] Primary Care Unavailable MarcanthonyTawana Attending Unavailable Marcanthony, Tawana Referring Unavailable Conor, Carmen Referring Unavailable Conor, Carmen Attending Unavailable [facility] Primary Care Unavailable Allergies Allergy Classification Reported Allergen(s) Allergy Type Date of Onset Reaction(s) Facility Opioid Agonists (6 sources) Codeine; Translations: [Codeine Derivatives] Drug Allergy [facility] Work Phone: (20 sources) Codeine; Translations: [Codeine Derivatives] Drug Allergy 2 Vomiting, Nausea [facility] Work Phone: (2 sources) Codeine; Translations: [CODEINE] Drug Allergy [address] [facility] (2 sources) vilazodone; Translations: [VILAZODONE HCL] Drug Allergy [address] [facility] Medications Current Medications Medication Drug Class(es) [...] Quanti ty: 0 Refills: 0 Ordered: 12-Dec-[address] Generic Substitution Allowed benzoyl peroxide 50 mg/ml topical lotion (1 source) Start: 04-08-2021 513253 Medication benzoyl peroxide 5 % topical cleanser benzoyl peroxide 5 % topical cleanser 5 % 1 Application topically daily 04/08/2021 Active (Current) cholecalciferol 0.01 mg oral tablet (4 sources) Vitamin D Start: 04-08-2021 [id number] Medication cholecalciferol (vitamin D3) 10 mcg (400 unit) tablet Vitamin D3 10 mcg (400 unit) 04/08/2021 Active (Outside) take 1 capsule by mouth every we ek Vitamin D3 1250 mcg (50,000 intl units) oral capsule ; cap(s) orally once a week Quantity: 0 Refills: 0 Ordered: 12-Dec-[address] Generic Substitution Allowed dexlansoprazole 60 mg delayed release oral capsule (17 sources) Proton Pump Inhibitor Start: 03-06-2021 [id number] Medication dexlansoprazole 60 mg capsule,biphase delayed release Dexilant 60 mg capsule, delayed release 60 mg TAKE ONE CAPSULE BY MOUTH OSORIO 03/06/2021 Active (Outside) Start: 01-29-2021 take 1 capsule by mo uth once daily Dexilant 60 MG Oral Capsule Delayed Release TAKE ONE CAPSULE BY MOUTH DAILY Quantity: 30 Refills: 5 Ordered: 29-Jan-2021 Celio Zhou DO Start : 29-Jan-2021 Active take 1 capsule by mo ut once daily Dexilant 60 MG Oral Capsule [...] mg PO daily March 17, 2024 1:00am Complies with drug therapy Start: 02-24-2022 End: 05-25-2022 take 1 tablet [...] 9:16am Start: 01-08-2020 take 1 tablet by norbert th once daily Escitalopram Oxalate 20 MG Oral Tablet TAKE ONE TABLET BY MOUTH EVERY DAY Quantity: 30 Refills: 5 Ordered: 05-Feb-2021 Celio Zhou DO Start : 08-Jan-2020 Active Start: 01-08-2020 take 0.5 tablet by m out once daily Escitalopram Oxalate 20 MG Oral Tablet TAKE 0.5 TABLET Daily Quantity: 15 Refills: 3 Ordered: 08-Oct-2020 Celio Zhou DO Start : 08-Jan-2020 Active take 1 tablet by norbert th once daily Escitalopram Oxalate 20 MG Oral Tablet TAKE 1 TABLET BY MOUTH EVERY DAY Quantity: 30 Refills: 11 Celio Zhou DO Active 24 hr metoprolol succinate 100 mg extended release oral tablet (18 sources) beta-Adrenergic Kevan Start: 03-17-2024 take 1 tablet by mouth twice daily Metoprolol Succinate 100 mg tablet extended release 24 hr Active 100 mg PO TWICE A DAY March 17, 2024 1:00am Complies with drug therapy minocycline 100 mg oral capsule (1 source) Tetracycline-class Drug Start: 04-08-2021 take 1 capsule by mouth twice daily [id number] Medication minocycline 100 mg capsule minocycline 100 [...] Ordered: 12-Dec-[address] Generic Substitution Allowed Ukzaejug-Rcq-Ii-Fa (1 source) Start: 01-11-2022 take 1 tablet by mouth once Ymnesigd-Jty-Cw-Fa Active TABLET PO January 10, 2022 11:00pm Usxbiakz-Lqx-Yq-Fa 1 mg Tablet (18 sources) Start: 01-11-2022 take 1 tablet by mouth once daily Hfelpket-Bbf-Xf-Fa 1 mg Tablet Active 1 {tbl} PO DAILY January 11, 2022 12:00am Complies with drug therapy Start: 01-11-2022 take 1 tablet by mouth once Pr enatal Calsfkcd-Ljp-Ir-Fa 1 mg Tablet Active {tbl} PO January 11, 2022 12:00am Complies with drug therapy Start: 01-11-2022 take 1 tablet by mouth once Pr enatal Lamblmxj-Ffq-Va-Fa 1 mg Tablet Active {tbl} PO January 11, 2022 12:00am tretinoin 0.25 mg/ml topical cream (1 source) Retinoid Start: 04-08-2021 [id number] Medicat ion tretinoin 0.025 % topical cream tretinoin 0.025 % topical cream 0.025 % 1 Application to affected area at bedtime 04/08/2021 Active (Current) valACYclovir 500 mg oral tablet (20 sources) Herpesvirus Nucleoside Analog DNA Polymerase Inhibitor, Herpes Simplex Virus Nucleoside Analog DNA Polymerase Inhibitor, Herpes Zoster Virus Nucleoside Analog DNA Polymerase Inhibitor Start: 11-23-2024 take 1 tablet by mouth once daily Valacyclovir (Valtrex) 500 mg tablet Active 500 mg PO daily 30 November 23, 2024 12:00am Complies with drug therapy Start: 06-09-2024 End: 06-12-2024 take 1 tablet [...] 12-Dec-2021 Tom Roberts Start : 12-Dec-2021 Active Completed/Discontinued Medications Medication Drug Class(es) Dates Sig (Normalized) Sig (Original) acetaminophen 300 mg / butalbital 50 mg / caffeine 40 mg oral capsule (20 sources) Barbiturate, Central Nervous System Stimulant, Methylxanthine [...] day Quantity: 0 Refills: 0 Ordered: 12-Dec-2021 DomingoJohanna wylie Generic Substitution Allowed Balcoltra 0.1-20 MG-MCG(21) Oral [...] Active cyclobenzaprine hydrochloride 10 mg oral tablet (18 sources) Muscle Relaxant Start: 04-21-2023 End: 03-17-2024 [...] Daily Quantity: 30 Refills: 3 Ordered: 08-Oct-2020 Celio Zhou DO Start : 08-Oct-2020 Active after week of 30 mg Start: 10-08-2020 DULoxetine HCl - 30 MG Oral Capsule Delayed Release Particles 1 po daily while taking Lexapro 10 mg Quantity: 7 Refills: 0 Ordered: 08-Oct-2020 Celio Zhou DO Start : 08-Oct-2020 Active Norethindrone-E.Estradiol-Ir on (18 sources) Estrogen Start: 04-21-2023 End: 03-17-2024 Norethindrone-E.Estradiol-Ir on 1 mg-20 mcg (21)/75 mg (7) tablet Discontinued 1 {tbl} PO DAILY April 21, 2023 1:00am March 17, 2024 9:16am ibuprofen 600 mg oral tablet (19 sources) Nonsteroid al Anti-infla mmatory Drug Start: 04-21-2023 End: 03-17-2024 ta ke 1 ta bl et by mo ut h th re e ti me s da il y as ne ed ed fo r pa in Ibuprofen 600 mg tablet Discontinued 600 mg PO THREE TIMES A DAY as needed for pain 30 0 April 21, 2023 1:00am March 17, 2024 9:16am Start: 01-07-2022 take 1 tablet by norbert th every six hours ibuprofen 600 mg oral tablet ; 1 tab(s) orally every 6 hours Quantity: 0 Refills: 0 Ordered: 07-Jan-2022 Yasmin Lackey Start: 07-Jan-2022 Generic Substitution Allowed labetalol hydrochloride 100 mg oral tablet (20 sources) beta-Adrenergic Kevan Start: 01-11-2022 Labeta lol [...] Rafiq Dyson DO Start : 30-Jan-2019 Active metFORMIN hydrochloride 500 mg oral tablet (20 sources) Biguanide Start: 04-21-2023 End: 11-23-2024 Metformin 500 mg tablet Discontinued mg PO April 21, 2023 1:00am November 23, 2024 10:06am Start: 04-01-2021 [id number] Medicat ion metformin ER 750 mg tablet,extended release 24 hr metformin ER 750 mg tablet,extended release 24 hr 750 mg 04/01/2021 Active (Outside) Start: 09-18-2019 take 2 tablets by mo uth once daily at dinner metFORMIN HCl ER 750 MG Oral Tablet Extended Release 24 Hour TAKE TWO TABLETS BY MOUTH ONCE DAILY WITH THE EVENING MEAL Quantity: 60 Refills: 3 Ordered: 10-Dec-2020 Celio Zhou DO Start : 18-Sep-2019 Active metroNIDAZOLE 500 mg oral tablet (3 [...] Refills: 0 Ordered: 13-Jun-2021 DO Start : 8-Apr-2022 Active progesterone 100 mg oral capsule (6 [...] Celio Zhou DO Start : 10-Dec-2020 Active Problems Active Problems Problem Classification Problem [...] tolerance complicating ; childbirth; or the puerperium (20 sources) Abnormal glucose level; Translations: [Abnormal glucose complicating ] Onset: 5 11-02-2024 Episodic Comment on above: needs 3 hour passed 3 hour Esophageal disorders (20 sources) Gastroesophageal [...] Dysuria; Translations: [Dysuria] Episodic Headache; including migraine (18 sources) Migraine; Translations: [Migraine, unspecified, not intractable, [...] delivered without mention of section] 01-05-2022 Episodic Malposition; malpresentation (5 sources) Breech presentation; Translations: [Maternal care for breech presentation, not applicable or unspecified] Onset: 5 12-13-2024 Episodic Comment on above: dicsussed ECV at 37 and IOL at 38 Menstrual disorders (20 sources) Oligomenorrhea; Translations: [Scanty or infrequent menstruation] Resolved: 2 Chronic Mood disorders (20 sources) Depressive disorder; Translations: [Depressive disorder, not elsewhere classified] 04-21-2023 Chronic Comment on above: Lexapro Lexapro stable Mood disorders (2 sources) Mood disorders; Translations: [Depression, unspecified] Onset: 2 Mycoses (20 sources) Candidiasis of vagina; Translations: [Candidiasis of vulva and vagina] Episodic Other aftercare (1 source) 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; Translations: [halfway (current) use of aspirin] Onset: 2 Episodic Other aftercare (1 source) 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; Translations: [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] Onset: 2 Episodic Other [...] delivery] Onset: 2 Episodic Other complications of (2 sources) Obesity complicating , third trimester; Translations: [Obesity [...] Comment on above: , SLIME 01/14/25, PC: Chad PC: Parth PRR, , SLIME 01/14, PC: Chad, PC: Parth Other complications of (1 source) [...] of (1 source) Supervision of elderly multigravida, third trimester; Translations: [Supervision of elderly multigravida, third trimester] Onset: 5 Episodic Other complications of (1 source) Supervision of high risk , unspecified, third trimester; Translations: [Supervision of high risk , unspecified, third trimester] Onset: 5 Episodic Other complications of [...] ] Onset: 2 Episodic Residual codes; unclassified (17 sources) Past history of procedure; Translations: [Other specified postprocedural states] 05-26-2024 Episodic Comment on above: 2012 Residual codes; unclassified (1 source) 35 weeks gestation of ; Translations: [35 weeks gestation of ] Onset: 5 Episodic Residual codes; unclassified (1 source) 32 weeks gestation of ; Translations: [32 weeks gestation of ] Onset: 5 Episodic Residual codes; unclassified (1 source) 29 weeks [...] vaginal delivery) 01-05-2022 Unclassified (1 source) Liveborn by vaginal delivery 01-05-2022 Unclassified (1 source) [...] Test Name Value Interpretation Reference Range Facility OB Triage Progress Noteon OB Triage Progress Note [facility] Medical Records Department [address] [place] [address] OB Triage Progress Note 12/14/24 0010 MR#: [id number] Acct: [id number] Name: SHU GASPAR Rep #: [id number] : 1990 33 From: Tawana Timmons MD PCP: Dr. Judie Bella MD Status:DEP CLI Y DOS: Location: WPOUT Progress Notes Date of Service: 12/13/24 Progress Note: Patient presents for triage evaluation secondary to 08/13 bpp FHT: 135 Moderate variability reactive no decelerations category I tracing [place]: no regular Contractions Assessment and plan: 35 weeks abnormal testing 10/15 bpp overall reassuring Reactive NST, reassuring maternal and status patient discharged to home to follow-up []. See problem list details for additional plan information. Charges/Coding Procedures Urinary/Genital 52xxx-59xxx: 51439-30 non-stress test Interp 12/14/24 0011 Date Tawana Timmons MD Cosigner Signature (if applicable): Date CC: Dr. Judie Bella MD; Dr. Tawana Timmons MD Signed Normal [facility] OB Biophysical Prof W/O NSTo n 12-13-2024 OB Biophysical Prof W/O NST [facility] Imaging Services [address] [place], [place] [id number] OB Biophysical Prof W/O NST MR#: [id number] Acct: [id number] Name: SHU GASPAR Rep #: [id number] : 1990 F 33 From: Zachariah Razo MD PCP: Dr. Judie Bella MD Status: REG CLI Study: OB Biophysical Prof W/O NST Date of Exam: 10/30 Exam# [id number] Ordering Dr: [facility]o [facility] PROCEDURE: OB BIOPHYSICAL PROF W/O NST 12/13/2024 REASON FOR EXAM: 35WK BPP, WELLBEING TECHNIQUE: Procedure Code: USBIOWO Modality: US Procedure: OB BIOPHYSICAL PROF W/O NST COMPARISON: December 08, 2024, November 30, 2024, November 20, 2024 FINDINGS Number: 1 Position: Vertex Placental Position: Posterior and fundal Placental Abnormalities: None. ESTIMATED GESTATIONAL AGE: 35 weeks, 3 days by report BIOPHYSICAL ASSESSMENT: Amniotic Fluid Volume: Subjectively normal. Amniotic Fluid Index: 14.5 cm (8-24 cm normal range) Cardiac Motion: 116 (average) Trunk and Limb Motion: Present. Amniotic Fluid Volume: 2/2 Movements: 2/2 Tone: 2/2 Breathin/2 Note: Discussed the findings with the technologist. She reported there was no significant breathing activity over the course of the 30 minute evaluation. Total: 08/13 US/OB Biophysical Prof W/O NST IMPRESSION: BIOPHYSICAL PROFILE SCORE 08/13. breathing/diaphragm movement was not seen during this examination. Close clinical follow-up suggested. Vertex presentation. Normal amniotic fluid volume. Technologist stated she alerted the ordering physician. The patient was returned to the office for monitoring. Reading Location: [id number] CC: AMIE Perdomo; Dr. Judie Bella MD Community Nutrition Educator: Signed Normal [facility] Transition Rn Office Visit Reporton 12-13-2024 Transition Rn Office Visit Report [facility]'s [address], [address] [place] [address] OFFICE VISIT Date of Service: 12/13/24 MR#: [id number] Acct: [id number] Name: SHU GASPAR Rep #: [id number] : 1990 Provider: Dr. 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 Is patient in pain?: No Allergies No Known Allergies Allergy (Verified 12/13/24 09:18) Medications ???Medication ???Instructions ???Recorded ???Confirmed ???Type lhfuzdjz-mix-Sr-FA 1 mg tab PO 01/11/22 12/13/24 History tablet escitalopram oxalate 20 mg tablet 20 mg PO QDAY 03/17/24 12/13/24 H istory (Lexapro) metoprolol succinate 100 mg 100 mg PO BID 03/17/24 12/13/24 Hi story tablet,extended release 24 hr valacyclovir 500 mg tablet 500 mg PO QDAY #30 tabs 11/23/24 1 Rx (Valtrex) Last Menstrual Period: 04/09/24 Zika: Zika virus [...] No household members: spouse and children [facility] number of children: 1 current occupational status: [...] physical activity do you participate in: none baylee/amish: None seatbelt use: always do you feel safe at home: Yes additional social history: : Parth Leggett History 2 Elective abortions Hx Para 1 Spontaneous abortions Hx # Term Pregnancies 1 Ectopic pregnancies Hx # Pregnancies Multiple births # of living children 1 Past Pregnancies Del. Date Name GA/Weeks Outcome Route Bth Weight Infant Gen Labor Lgth Anesthesia Del Locatn Provider FOB 01/05/22 [place] 39 live - full term 7lbs 8oz Male epidural [facility] Delivery Date: 01/05/22 Last Updated by: Andressa Schmitz RN HTN during labor..(no pre-e but now has chronic HTN) HPI 35 WK OB Details: SHU GASPAR is a 33 year old who presents for routine OB visit. OB Visit SLIME Calculator Estimated Delivery Date Method Current WG Current Estimate 01/14/25 LMP (Certain) 35w 3d Other Estimates 01/17/25 Ultrasound #1 35w 0d Expected Delivery Route/Plan Labor Preferences CB/BF classes: no labor support person: Parth labor intervention preferences: [] pain management options preferred: [] cut cord/dad catch: [] : [] PP control planned: [] discussed possible routes of delivery and associated risks: [] special requests: [] Specific Issue/Plans Covid status: [] Flu vaccine: [] Tdap vaccine: given Rhogam: NA LARC form signed: yes Problem list reviewed and updated with the [...] (+8 oz) 125/80 -???-???-???-???-???-???- ???-???-???-???-???-???- 178 -???-???-???-???-???-???- ???-???-???-???-? (more content not included)... Normal [facility] Laboratory - Chemistry and C hemistry - challengeOrdered By: Anh Brittany on 12-08-2024 Glucose Ql (U) Negative [facility] Laboratory - UrinalysisOrder ed By: Anh Brittany on 12-08-2024 Protein Ql (U) Negative [facility] OB Biophysical Prof W/O NSTo n 12-08-2024 OB Biophysical Prof W/O NST [facility] Imaging Services [address] [place] [address] OB Biophysical Prof W/O NST MR#: [id number] Acct: [id number] Name: SHU GASPAR Rep #: [id number] : 1990 F 33 From: Jg cantrell MD PCP: Dr. Judie Bella MD Status: [facility] CLI Study: OB Biophysical Prof W/O NST Date of Exam: 05/30 Exam# [id number] Ordering Dr: Carmen Perdomo CNM PROCEDURE: OB BIOPHYSICAL PROF W/O NST 12/08/2024 REASON FOR EXAM: 34WK BPP, WELL BEING TECHNIQUE: Procedure Code: USBIOWO Modality: US Procedure: OB BIOPHYSICAL PROF W/O NST COMPARISON: Prior study dated November 30, 2024. FINDINGS Number: 1 Position: Breech Placental Position: Posterior and not low-lying. Placental Abnormalities: No evidence of previa. ESTIMATED GESTATIONAL AGE: Baseline: 34 weeks and 5 days ESTIMATED DATE OF DELIVERY: Baseline: January 14, 2025. BIOPHYSICAL ASSESSMENT: Amniotic Fluid Volume: 4.4 Amniotic Fluid Index: 15.1 (8-24 cm normal range) Cardiac Motion: 139 beats per minute (average) Trunk and Limb Motion: Present. Biophysical profile: Breathing movements: 2 Gross body movements: 2 tone: 2 Amniotic fluid volume: 2 Total score: 8/8 US/OB Biophysical Prof W/O NST IMPRESSION: Normal biophysical profile. Reading Location: [facility] CC: AMIE Perdomo; Dr. Judie Bella MD Community Nutrition Educator: Signed Normal [facility] Transition Rn Office Visit Reporton 12-08-2024 Transition Rn Office Visit Report [facility]'s [address], [address] [place] [address] OFFICE VISIT Date of Service: 12/08/24 MR#: [id number] Acct: [id number] Name: SHU GASPAR Rep #: [id number] : 1990 Provider: Dr. 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 Is patient in pain?: No Allergies No Known Allergies Allergy (Verified 12/08/24 08:49) Medications ???Medication ???Instructions ???Recorded ???Confirmed ???Type sdqlpwsi-rtd-Uy-FA 1 mg tab PO 01/11/22 12/08/24 History tablet escitalopram oxalate 20 mg tablet 20 mg PO QDAY 03/17/24 12/08/24 H istory (Lexapro) metoprolol succinate 100 mg 100 mg PO BID 03/17/24 12/08/24 Hi story tablet,extended release 24 hr valacyclovir 500 mg tablet 500 mg PO QDAY #30 tabs 11/23/24 1 Rx (Valtrex) Last Menstrual Period: 04/09/24 Zika: Zika virus [...] physical activity do you participate in: none baylee/amish: None seatbelt use: always do you feel safe at home: Yes additional social history: : Parth Leggett History 2 Elective abortions Hx Para 1 Spontaneous abortions Hx # Term Pregnancies 1 Ectopic pregnancies Hx # Pregnancies Multiple births # of living children 1 Past Pregnancies Del. Date Name GA/Weeks Outcome Route Bth Weight Infant Gen Labor Lgth Anesthesia Del Locatn Provider FOB 01/05/22 [place] 39 live - full term 7lbs 8oz Male epidural [facility] Delivery Date: 01/05/22 Last Updated by: Andressa Schmitz RN HTN during labor..(no pre-e but now has chronic HTN) HPI 34 wk ob Details: SHU GASPAR is a 33 year old who presents for routine OB visit. OB Visit SLIME Calculator Estimated Delivery Date Method Current WG Current Estimate 01/14/25 LMP (Certain) 34w 5d Other Estimates 01/17/25 Ultrasound #1 34w 2d Expected Delivery Route/Plan Labor Preferences CB/BF classes: no labor support person: Parth labor intervention preferences: [] pain management options preferred: [] cut cord/dad catch: [] : [] PP control planned: [] discussed possible routes of delivery and associated risks: [] special requests: [] Specific Issue/Plans Covid status: [] Flu vaccine: [] Tdap vaccine: given Rhogam: NA LARC form signed: yes Problem list reviewed and updated with the [...] 8 oz (+8 oz) 125/80 -???-???-???-???-???-???- ???-???-???-???-???-???- (more content not included)... Normal [facility] - Chemistry and C hemistry - challengeOrdered By: Ade Fam on 11-30-2024 Glucose Ql (U) Negative [facility] - UrinalysisOrder ed By: Ade Fam on 11-30-2024 Protein Ql (U) Negative [facility] OB Biophysical Prof W/O NSTo n 11-30-2024 OB Biophysical Prof W/O NST [facility] [address] [place] [address] OB Biophysical Prof W/O NST MR#: [id number] Acct: [id number] Name: SHU GASPAR Rep #: [id number] : 1990 F 33 From: Martinez Mckinney MD PCP: Dr. Judie Bella MD Status: REG CLI Study: OB Biophysical Prof W/O NST Date of Exam: 11/07 07/30 Exam# [id number] Ordering Dr: Carmen Perdomo CNM PROCEDURE: OB BIOPHYSICAL PROF W/O NST 11/30/2024 REASON FOR EXAM: 33WK BPP, WELLBEING TECHNIQUE: Procedure Code: USBIOWO Modality: US Procedure: OB BIOPHYSICAL PROF W/O NST COMPARISON: November 20, 2024 FINDINGS heart rate = 150 beats per minute position = transverse right age by LMP = 33 weeks 4 days, 01/14/2025 Breathing movement equal 2 Gross body movement equal 2 tone equals 2 Amniotic fluid volume equal 2 Total score = 8/8 JOHN = 15.3 Placenta grade = 1 US/OB Biophysical Prof W/O NST IMPRESSION: Biophysical profile = 8/8. Reading Location: [place] CC: AMIE Perdomo; Dr. Judie Bella MD Community Nutrition Educator: Signed Normal [facility] Transition Rn Office Visit Reporton 11-30-2024 Transition Rn Office Visit Report [facility] [address], [address] [place] [address] OFFICE VISIT Date of Service: 11/30/24 MR#: [id number] Acct: [id number] Name: SHU GASPAR Rep #: [id number] : 1990 Provider: ALVINA chambers Age/Sex: 33/F Location: [facility] Status: Signed Intake Vital Signs 10/30/24 13:49 11/23/24 09:22 11/30/24 09:42 11/30/24 09:44 Height 5 ft 2 in 5 ft 2 in 5 ft 2 in 5 ft 2 in Weight: 277 lb 6 oz BMI 50.7 BP 129/84 H Intake Visit Reasons: 33 WK OB Chief Complaint: 33 Week OB Floor Coverings Salesperson Required: No Is patient in pain?: No Allergies No Known Allergies Allergy (Verified 11/30/24 09:41) Medications ???Medication ???Instructions ???Recorded ???Confirmed ???Type slbageqr-fra-Cs-FA 1 mg tab PO 01/11/22 11/30/24 History tablet escitalopram oxalate 20 mg tablet 20 mg PO QDAY 03/17/24 11/30/24 H istory (Lexapro) metoprolol succinate 100 mg 100 mg PO BID 03/17/24 11/30/24 Hi story tablet,extended release 24 hr valacyclovir 500 mg tablet 500 mg PO QDAY #30 tabs 11/23/24 0 11/30/24 Rx (Valtrex) Last Menstrual Period: 04/09/24 Zika: Zika virus [...] physical activity do you participate in: none baylee/amish: None seatbelt use: always do you feel safe at home: Yes additional social history: : Parth Leggett History 2 Elective abortions Hx Para 1 Spontaneous abortions Hx # Term Pregnancies 1 Ectopic pregnancies Hx # Pregnancies Multiple births # of living children 1 Past Pregnancies Del. Date Name GA/Weeks Outcome Route Bth Weight Infant Gen Labor Lgth Anesthesia Del Locatn Provider FOB 01/05/22 [place] 39 live - full term 7lbs 8oz Male epidural [facility] Delivery Date: 01/05/22 Last Updated by: Andressa Schmitz RN HTN during labor..(no pre-e but now has chronic HTN) HPI 33 WK OB Details: SHU GASPAR is a 33 year old who presents for routine OB visit. OB Visit SLIME Calculator Estimated Delivery Date Method Current WG Current Estimate 01/14/25 LMP (Certain) 33w 4d Other Estimates 01/17/25 Ultrasound #1 33w 1d Expected Delivery Route/Plan Labor Preferences CB/BF classes: no labor support person: Parth labor intervention preferences: [] pain management options preferred: [] cut cord/dad catch: [] : [] PP control planned: [] discussed possible routes of delivery and associated risks: [] special requests: [] Specific Issue/Plans Covid status: [] Flu vaccine: [] Tdap vaccine: given Rhogam: NA LARC form signed: yes Problem list reviewed and updated with the [...] lb 8 oz (+8 oz) 125/80 -???-???-???-???-???-???- ???-???-???-? (more content not included)... Normal [facility] Transition Rn Office Visit Reporton 11-23-2024 Transition Rn Office Visit Report [facility]'s [address], [address] [place] [address] OFFICE VISIT Date of Service: 11/23/24 MR#: [id number] Acct: [id number] Name: SHU GASPAR Rep #: [id number] : 1990 Provider: Dr. Tawana fajardo MD Age/Sex: 33/F Location: [facility] Status: Signed Intake Vital Signs 10/02/24 09:42 10/30/24 13:49 11/23/24 09:22 Height 5 ft 2 in 5 ft 2 in 5 ft 2 in Weight: 268 lb 5 oz 275 lb BMI 49.1 50.3 BP 120/83 H 114/75 Intake Visit Reasons: 32 wk ob Floor Coverings Salesperson Required: No Is patient in pain?: No Allergies No Known Allergies Allergy (Verified 11/23/24 09:26) Medications ???Medication ???Instructions ???Recorded ???Confirmed ???Type sylnhsna-poz-Ek-FA 1 mg tab PO 01/11/22 11/23/24 History tablet metformin 500 mg tablet mg PO 04/21/23 11/23/24 History escitalopram oxalate 20 mg tablet 20 mg PO QDAY 03/17/24 11/23/24 H istory (Lexapro) metoprolol succinate 100 mg 100 mg PO BID 03/17/24 11/23/24 Hi story tablet,extended release 24 hr valacyclovir 500 mg tablet 500 mg PO QDAY #30 tabs 11/23/24 0 11/23/24 Rx (Valtrex) Last Menstrual Period: 04/09/24 Zika: Zika virus [...] status: employed 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 OB Visit SLIME Calculator Estimated Delivery Date Method Current WG Current Estimate 01/14/25 LMP (Certain) 32w 4d Other Estimates 01/17/25 Ultrasound #1 32w 1d Expected Delivery Route/Plan Labor Preferences- CB/BF [...] lb 8 oz (+8 oz) 125/80 -???-???-???-???-???-???- ? (more content not included)... Normal [facility] OB Biophysical Prof W/O Topher n 11-20-2024 OB Biophysical Prof W/O NST [facility] [address] [place], [place] [address] OB Biophysical Prof W/O NST MR#: [id number] Acct: [id number] Name: SHU GASPAR Rep #: [id number] : 1990 F 33 From: Jg cantrell MD PCP: Dr. Judie Bella MD Status: REG CLI Study: OB Biophysical Prof W/O NST Date of Exam: 11/06 07/30 Exam# [id number] Ordering Dr: Carmen Perdomo CNM PROCEDURE: OB BIOPHYSICAL PROF W/O NST 11/20/2024 REASON FOR EXAM: 32WK BPP, WELLBEING TECHNIQUE: Procedure Code: USBIOWO Modality: US Procedure: OB BIOPHYSICAL PROF W/O NST COMPARISON: None FINDINGS Number: 1 Position: Breech Placental Position: Posterior and not low-lying. Placental Abnormalities: No evidence of previa. ESTIMATED GESTATIONAL AGE: Baseline: 32 weeks and 1 day ESTIMATED DATE OF DELIVERY: Baseline: January 14, 2025 BIOPHYSICAL ASSESSMENT: Amniotic Fluid Volume: 3.9 cm Amniotic Fluid Index: 15.9 cm (8-24 cm normal range) Cardiac Motion: 132 beats per minute (average) Trunk and Limb Motion: Present. MATERNAL ANATOMY: Adnexa: Neither maternal ovary is successfully identified. Biophysical profile: Breathing movements: 2 Gross body movements: 2 tone: 2 Amniotic fluid volume: 2 Total score: 8/8 US/OB Biophysical Prof W/O NST IMPRESSION: Normal biophysical profile score of 8/8. Reading Location: [facility] CC: AMIE Perdomo; Dr. Judie Bella MD Community Nutrition Educator: Signed Normal [facility] OB Limited With Biometricson 11-20-2024 OB Limited With Biometrics [facility] [address] [place], [place] [id number] OB Limited With Biometrics MR#: [id number] Acct: [id number] Name: SHU GASPAR Rep #: [id number] : 1990 F 33 From: Jg cantrell MD PCP: Dr. Judie Bella MD Status: REG CLI Study: OB Limited With Biometrics Date of Exam: 11/20 Exam# [id number] Ordering Dr: Carmen Perdomo CNM PROCEDURE: OB LIMITED WITH BIOMETRICS 11/20/2024 REASON FOR EXAM: 32WK GROWTH US TECHNIQUE: Procedure Code: USOBGROWTH Modality: US Procedure: OB LIMITED WITH BIOMETRICS COMPARISON: None FINDINGS Number: 1 Position: Breech Placental Position: Posterior and not low-lying Placental Abnormalities: No evidence of previa. DIMENSIONS: Biparietal Diameter: 7.9 cm: 31 weeks and 5 days: 28 percentile./ Head Circumference: 31 cm: 34 weeks and 4 days: 79 percentile/ Abdominal Circumference: 29.7 cm: 33 weeks and 5 days: 88 percentile/ Femur Length: 5.8 cm: 30 weeks and 3 days: 5th percentile/ ESTIMATED WEIGHT: 2023 g plus/-209 9 g ESTIMATED WEIGHT PERCENTILE (24+ weeks): 56 percentile ESTIMATED GESTATIONAL AGE: Baseline: 32 weeks and 1 day By Ultrasound: 33 weeks and 2 days ESTIMATED DATE OF DELIVERY: Baseline: January 14, 2025 By Ultrasound: January 06, 2025 BIOPHYSICAL ASSESSMENT: Amniotic Fluid Volume: 5.8 cm Amniotic Fluid Index: 16 point 2 cm (8-24 cm normal range) Cardiac Motion: (average) Trunk and Limb Motion: Present. MATERNAL ANATOMY: Adnexa: Neither maternal ovary is successfully identified. US/OB Limited With Biometrics IMPRESSION: Single live intrauterine gestation with a mean gestational age of 33 weeks and 2 days. Reading Location: [place] [address] CC: AMIE Perdomo; Dr. Judie Bella MD Community Nutrition Educator: Signed [facility] Gestational GTT 3HR 100gon 0 11-10-2024 GEST GTT 100gm [facility] Comment on above: Order Comment: Y Result Comment: FAST ING 88 Col: 11/10/24 0650 GLUCOSE TOLERANCE TEST FOR Reference Interval GESTATIONAL DIABETES Fasting <105 mg/dL 1 hour <190 mg/dl 2 hour <165 mg/dl 3 hour <145 mg/dl 1 HR GLU 165 Col: 11/10/24 0824 2 HR GLU 146 Col: 11/10/24 0924 3 HR GLU 138 Col: 11/10/24 1024 Performed By: #### L 500.4710 #### [facility] [address] [place], [address] Quantitative serum or plasma 3 hour gestational glucose tolerance panelOrdered By: Carmen Perdomo on 11-10-2024 Glucose tolerance 3 hours gestational panel See comment [facility] Comment on above: FASTING 88 Col: 07/30 0650GLUCOSE TOLERANCE TEST FOR Reference Interval GESTATIONAL DIABETES Fasting <105 mg/dL 1 hour <190 mg/dl 2 hour <165 mg/dl 3 hour <145 mg/dl 1 HR GLU 165 Col: 11/10/24 0824 2 HR GLU 146 Col: 11/10/24 0924 3 HR GLU 138 Col: 11/10/24 1024 Absolute lymphocyte countOrd ered By: Carmen Perdomo on 10-30-2024 Lymphocytes Auto (Unsp spec) [#/Vol] 2.12 10*3/uL 0.83-4.51 [facility] Absolute neutrophil countOrd ered By: Carmen Perdomo on 10-30-2024 Neutrophils (Bld) [#/Vol] 7.8 10*3/uL High 2.0-7.7 [facility] Automated lymphocyte count a s percentage of total leukocytesOrdered By: Carmen Perdomo on 10-30-2024 Lymphocytes/100 WBC Auto (Unsp spec) 19.6 % 19-41 [facility] Basophil percentageOrdered B y: Carmen Perdomo on 10-30-2024 Basophils/100 WBC (Bld) 0.5 % 0-1 [facility] CBC W/Diff, Automatedon 10-07 Absolute Lymph 2.12 X10 3/uL Normal 0.83-4.51 [facility] Comment on above: Performed By: #### L 100.0100, L501.0250, L509.8002, L3890.6006 ####[facility] [address] [place], [address] Absolute Neut 7.8 X10 3/uL High 2.0-7.7 [facility] Comment on above: Performed By: #### L 100.0100, L501.0250, L509.8002, L3890.6006 ####[facility] [address] [place], [address] Basophils/100 WBC (Bld) 0.5 % Normal 0-1 [facility] Comment on above: Performed By: #### L 100.0100, L501.0250, L509.8002, L3890.6006 ####[facility] [address] [place], [address] Eosinophils/100 WBC (Bld) 1.7 % Normal 0-5 [facility] Comment on above: Performed By: #### L 100.0100, L501.0250, L509.8002, L3890.6006 ####[facility] [address] [place], [address] Erythrocyte distribution width (RBC) [Ratio] 13.7 % Normal 11.6-14.6 [facility] Comment on above: Performed By: #### L 100.0100, L501.0250, L509.8002, L3890.6006 ####[facility] [address] [place], [address] Hematocrit (Bld) [Volume fraction] 33.3 % Low 37-47 [facility] Comment on above: Performed By: #### L 100.0100, L501.0250, L509.8002, L3890.6006 ####[facility] [address] [place], [address] Hemoglobin (Bld) [Mass/Vol] 11.1 g/dL Low 12.0-15.0 [facility] Comment on above: Performed By: #### L 100.0100, L501.0250, L509.8002, L3890.6006 ####[facility] [address] [place], [address] IG% 0.500 Normal 0.0-0.9 [facility] Comment on above: Result Comment: IG% - Immature Granulocytes (promyelocytes, myelocytes and metamyelocytes) > 1% indicates that a LEFT SHIFT is Present. Performed By: #### L 100.0100, L501.0250, L509.8002, L3890.6006 ####[facility] [address] [place], [address] Lymphocytes/100 WBC (Bld) 19.6 % Normal 19-41 [facility] Comment on above: Performed By: #### L 100.0100, L501.0250, L509.8002, L3890.6006 ####[facility] [address] [place], [address] MCH (RBC) [Entitic mass] 30.0 pg Normal 27.0-32.0 [facility] Comment on above: Performed By: #### L 100.0100, L501.0250, L509.8002, L3890.6006 ####[facility] [address] [place], [address] MCHC (RBC) [Mass/Vol] 33.3 g/dL Normal 32-36 [facility] Comment on above: Performed By: #### L 100.0100, L501.0250, L509.8002, L3890.6006 ####[facility] [address] [place], [address] MCV (RBC) [Entitic vol] 90.0 fL Normal 81-99 [facility] Comment on above: Performed By: #### L 100.0100, L501.0250, L509.8002, L3890.6006 ####[facility] [address] [place], [address] Monocytes/100 WBC (Bld) 5.4 % Normal 0-10 [facility] Comment on above: Performed By: #### L 100.0100, L501.0250, L509.8002, L3890.6006 ####[facility] [address] [place], [address] Neutrophils/100 WBC (Bld) 72.3 % High 47-70 [facility] Comment on above: Performed By: #### L 100.0100, L501.0250, L509.8002, L3890.6006 ####[facility] [address] [place], [address] Nucleated RBC (Bld) [#/Vol] 0 10*3/uL Normal 0-5 [facility] Comment on above: Performed By: #### L 100.0100, L501.0250, L509.8002, L3890.6006 ####[facility] [address] [place], [address] Platelet mean volume (Bld) [Entitic vol] 11.0 fL Normal 6.2-12.0 [facility] Comment on above: Performed By: #### L 100.0100, L501.0250, L509.8002, L3890.6006 ####[facility] [address] [place], [address] Platelets (Bld) [#/Vol] 277 10*3/uL Normal 150-450 [facility] Comment on above: Performed By: #### L 100.0100, L501.0250, L509.8002, L3890.6006 ####[facility] [address] [place], [address] RBC (Bld) [#/Vol] 3.70 10*6/uL Low 4.2-5.[address] [facility] Comment on above: Performed By: #### L 100.0100, L501.0250, L509.8002, L3890.6006 ####[facility] [address] [place], [address] RDW SD 44.5 fl High 35.1-43.9 [facility] Comment on above: Performed By: #### L 100.0100, L501.0250, L509.8002, L3890.6006 ####[facility] [address] [place], [address] WBC (Bld) [#/Vol] 10.8 10*3/uL Normal 4.4-11.[address] [facility] Comment on above: Performed By: #### L 100.0100, L501.0250, L509.8002, L3890.6006 ####[facility] [address] [place], [place], [address] Eosinophil percentageOrdered By: Carmen Perdomo on 10-30-2024 Eosinophils/100 WBC (Bld) 1.7 % 0-5 [facility] Erythrocyte distribution wid th ratioOrdered By: Carmen Perdomo on 10-30-2024 Erythrocyte distribution width (RBC) [Ratio] 13.7 % 11.6-14.6 [facility] Erythrocyte distribution wid th standard deviationOrdered By: Carmen Perdomo on 10-30-2024 Erythrocyte distribution width (RBC) [Ratio] 44.5 fl High 35.1-43.9 [facility] Glucose Challenge Gest 1H 50 indra 10-30-2024 GLU GEST 50g 1H 138 mg/dL Normal 70-140 [facility] Comment on above: Performed By: #### L 100.0100, L501.0250, L509.8002, L3890.6006 ####[facility] [address] [place], [place], [address] Glucose measurement at 2 nae rs post-dose gestational glucose tolerance testOrdered By: Carmen Perdomo on 10-30-2024 Glucose [Mass/Vol] 138 mg/dL 70-140 [facility] HIVon 10-30-2024 HIV Non-Reactive Normal Nonreactive [facility] Comment on above: Result Comment: Non- Reactive Reactive Repeatedly reactive samples must be confirmed according to CDC recommended confirmatory algorithms. The subresults for either HIVAG or AHIV can be used as an aid in the selection of the confirmation algorithm for reactive samples. Send out specimens with Reactive results to [facility] for confirmation. Order the HIV antibody detection and differentiation: lc#[id number] Performed By: #### L 100.0100, L501.0250, L509.8002, L3890.6006 ####[facility] [address] [place], [address] Hematocrit Auto (Bld) [Volum e fraction]Ordered By: Carmen Perdomo on 10-30-2024 Hematocrit (Bld) [Volume fraction] 33.3 % Low 37-47 [facility] Hemoglobin measurementOrdere d By: Carmen Perdomo on 10-30-2024 Hemoglobin (Bld) [Mass/Vol] 11.1 g/dL Low 12.0-15.0 [facility] Immature granulocytes/100 WB C Auto (Bld)Ordered By: Carmen Perdomo on 10-30-2024 Immature granulocytes/100 WBC (Bld) 0.500 % 0.0-0.9 [facility] Comment on above: IG% - Immature Granu locytes (promyelocytes, myelocytes and metamyelocytes) > 1% indicates that a LEFT SHIFT is Present. Laboratory - Chemistry and C hemistry - challengeOrdered By: Carmen Perdomo on 10-30-2024 Glucose Ql (U) Negative [facility] - UrinalysisOrder ed By: Carmen Perdomo on 10-30-2024 Protein Ql (U) Negative [facility] MCV (mean corpuscular volume ) determinationOrdered By: Carmen Perdomo on 10-30-2024 MCV (RBC) [Entitic vol] 90.0 fL 81-99 [facility] Mean corpuscular hemoglobin (MCH) determinationOrdered By: Carmen Perdomo on 10-30-2024 MCH (RBC) [Entitic mass] 30.0 pg 27.0-32.0 [facility] Mean corpuscular hemoglobin concentration (MCHC) determinationOrdered By: Carmen Perdomo on 10-30-2024 MCHC (RBC) [Mass/Vol] 33.3 g/dL 32-36 [facility] Mean platelet volume determi nationOrdered By: Carmen Perdomo on 10-30-2024 Platelet mean volume (Bld) [Entitic vol] 11.0 fL 6.2-12.0 [facility] Monocyte percentageOrdered B y: Carmen Perdomo on 10-30-2024 Monocytes/100 WBC (Bld) 5.4 % 0-10 [facility] Neutrophil percentageOrdered By: Carmen Perdomo on 10-30-2024 Neutrophils/100 WBC (Bld) 72.3 % High 47-70 [facility] No Panel InformationOrdered By: Carmen Perdomo on 10-30-2024 HIV (1&2) Antibody Non-Reactive Nonreactive [facility] Comment on above: Non-ReactiveReactive Repeatedly reactive samples must be confirmed according to CDC recommended confirmatory algorithms. The subresults for either HIVAG or AHIV can be used as an aid in the selection of the confirmation algorithm for reactive samples.Send out specimens with Reactive results to [facility] for confirmation.Order the HIV antibody detection and differentiation: #[id number] Nucleated red blood cell per centageOrdered By: Carmen Perdomo on 10-30-2024 Nucleated RBC/100 WBC (Bld) [Ratio] 0 % 0-5 [facility] Transition Rn Office Visit Reporton 10-30-2024 Transition Rn Office Visit Report [facility] [address], [address] [place] [address] OFFICE VISIT Date of Service: 10/30/24 MR#: [id number] Acct: [id number] Name: SHU GASPAR Rep #: [id number] : 1990 Provider: AMIE Talley ams Age/Sex: 33/F Location: [facility] Status: Signed Intake Vital Signs 09/01/24 14:59 10/02/24 09:42 10/30/24 13:49 Height 5 ft 2 in 5 ft 2 in 5 ft 2 in Weight: 265 lb 6 oz 268 lb 5 oz BMI 48.5 49.1 BP 124/83 H 120/83 H Intake Visit Reasons: 28wk ob/glucose Floor Coverings Salesperson Required: No Is patient in pain?: No Allergies No Known Allergies Allergy (Verified 10/30/24 13:50) Medications ???Medication ???Instructions ???Recorded ???Confirmed ???Type wklrslad-nex-Lz-FA 1 mg tab PO 01/11/22 10/30/24 History [...] physical activity do you participate in: none baylee/amish: None seatbelt use: always do you feel [...] 178 -???-???-???-??? (more content not included)... Normal [facility] Platelet countOrdered By: Zuleyma Perdomo on 10-30-2024 Platelets (Bld) [#/Vol] 277 10*3/uL 150-450 [facility] RBC Auto (Bld) [#/Vol]Ordere d By: Carmen Perdomo on 10-30-2024 RBC (Bld) [#/Vol] 3.70 10*6/uL Low 4.2-5.[address] [facility] Syphilis Antibodieson 2024 Syphilis Abs Non-Reactive Normal Nonreactive [facility] [facility] Comment on above: Performed By: #### L 100.0100, L501.0250, L509.8002, L3890.6006 ####[facility] [address] [place], [address] White blood cell (WBC) count Ordered By: Carmen Perdomo on 10-30-2024 WBC (Bld) [#/Vol] 10.8 10*3/uL 4.4-11.[address] [facility] Laboratory - Chemistry and C hemistry - challengeOrdered By: Carmen Perdomo on 10-02-2024 Glucose Ql (U) Negative [facility] Laboratory - UrinalysisOrder ed By: Carmen Perdomo on 10-02-2024 Protein Ql (U) Negative [facility] Transition Rn Office Visit Reporton 10-02-2024 Transition Rn Office Visit Report [facility]'[address], [address] [place] [address] OFFICE VISIT Date of Service: 10/02/24 MR#: [id number] Acct: [id number] Name: SHU GASPAR Rep #: [id number] : 1990 Provider: AMIE Talley ams Age/Sex: 33/F Location: [facility] Status: Signed Intake Vital Signs 07/06/24 15:06 09/01/24 14:59 10/02/24 09:42 Height 5 ft 2 in 5 ft 2 in 5 ft 2 in Weight: 265 lb 6 oz BMI 48.5 BP 124/83 H Intake Visit Reasons: 24 wk ob Chief Complaint: 24wk OB Floor Coverings Salesperson Required: No Is patient in pain?: No Allergies No Known Allergies Allergy (Verified 10/02/24 09:40) Medications ???Medication ???Instructions ???Recorded ???Confirmed ???Type cocpihls-cdy-Wr-FA 1 mg tab PO 01/11/22 10/02/24 History [...] physical activity do you participate in: none baylee/amish: None seatbelt use: always do you feel safe at home: Yes additional social history: : Parth Leggett History 2 Elective abortions Hx Para 1 Spontaneous abortions Hx # Term Pregnancies 1 Ectopic pregnancies Hx # Pregnancies Multiple births # of living children 1 Past Pregnancies Del. Date Name GA/Weeks Outcome Route Bth Weight Infant Gen Labor Lgth Anesthesia Del Locatn Provider FOB 01/05/22 [place] 39 live - full term 7lbs 8oz [...] at ne (more content not included)... Normal [facility] Laboratory - Chemistry and C hemistry - challengeOrdered By: Anh Soto on 09-01-2024 Glucose Ql (U) Negative [facility] Laboratory - UrinalysisOrder ed By: Anh Soto on 09-01-2024 Protein Ql (U) Negative [facility] Transition Rn Office Visit Reporton 09-01-2024 Transition Rn Office Visit Report [facility] [address], [address] [place] [address] OFFICE VISIT Date of Service: 09/01/24 MR#: [id number] Acct: [id number] Name: SHU GASPAR Rep #: [id number] : 1990 Provider: Dr. Anh Kirk, Age/Sex: 33/F Location: [facility] Status: Signed Intake Vital Signs 06/09/24 13:11 08/02/24 11:04 09/01/24 14:57 09/01/24 14:59 Height 5 ft 2 in 5 ft 2 in 5 ft 2 in 5 ft 2 in Weight: 259 lb 2 oz BMI 47.4 BP 119/86 H Intake Visit Reasons: 20wk ob Floor Coverings Salesperson Required: No Is patient in pain?: No Allergies No Known Allergies Allergy (Verified 09/01/24 14:57) Medications ???Medication ???Instructions ???Recorded ???Confirmed ???Type xgtjsgpg-ipq-Hl-FA 1 mg tab PO 01/11/22 09/01/24 History [...] physical activity do you participate in: none baylee/amish: None seatbelt use: always do you feel safe at home: Yes additional social history: : Parth Leggett History 2 Elective abortions Hx Para 1 Spontaneous abortions Hx # Term Pregnancies 1 Ectopic pregnancies Hx # Pregnancies Multiple births # of living children 1 Past Pregnancies Del. Date Name GA/Weeks Outcome Route Bth Weight Gen Labor Lgth Anesthesia Del Locatn Provider FOB 01/05/22 [place] 39 live - full term 7lbs 8oz [...] -???-???-???-???-???-???- ???-???-???-???-???- (more content not included)... Normal [facility] Laboratory - Chemistry and C hemistry - challengeOrdered By: Anh Soto on 08-02-2024 Glucose Ql (U) Negative [facility] Laboratory - UrinalysisOrder ed By: Anh Soto on 08-02-2024 Protein Ql (U) Negative [facility] Transition Rn Office Visit Reporton 08-02-2024 Transition Rn Office Visit Report [facility]'s [address], [address] [place] [address] OFFICE VISIT Date of Service: 08/02/24 MR#: [id number] Acct: [id number] Name: SHU GASPAR Rep #: [id number] : 1990 Provider: Dr. 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 Date Name GA/Weeks Outcome Route Bth Weight Gen Labor Lgth Anesthesia Del Locatn Provider FOB 01/05/22 [place] 39 live - full term 7lbs 8oz [...] -???-???-???-???-???-???- ???-???-???-???- (more content not included)... Normal [facility] Protein+Creatinine Ratio,Uri neon 08-02-2024 PROT:CRE RATIO 65 mg/g CRE Normal 0-200 [facility] Comment on above: Performed By: #### L 501.0900 ####[facility] [address] [place], [address] Protein (U) [Mass/Vol] 14.0 mg/dL High 0.0-12.0 [facility] Comment on above: Performed By: #### L 501.0900 ####[facility] [address] [place], [address] UR CREAT 215.00 mg/dL Normal 28.00-217.00 [facility] Comment on above: Performed By: #### L 501.0900 ####[facility] [address] [place], [address] Random urine creatinine laureano urement (mass/volume)Ordered By: Tawana Timmons on 08-02-2024 Creatinine Unsp time (U) [Mass/Vol] 215.00 mg/dL 28.00-217.00 [facility] Urine protein measurement (m ass/volume)Ordered By: Tawana Timmons on 08-02-2024 Protein (U) [Mass/Vol] 14.0 mg/dL High 0.0-12.0 [facility] Urine protein/creatinine mas s ratioOrdered By: Tawana Timmons on 08-02-2024 Protein/Creatinine (U) [Mass ratio] 65 mg/g CRE 0-200 [facility] Electrocardiogram reportOrde red By: Arnulfo Gilmore on 07-24-2024 EKG study [facility] [address] [place] [address] 12 Lead EKG 07/21/24 0905 MR#: [id number] Acct: [id number] Name: SHU GASPAR Rep #:[id number] : 1990 33 From: Arnulfo Gilmore MD Attending Dr: Dr. Tawana Timmons MD Status: REG CLI Ordering Dr: Tawana Timmons MD Victor M e: 07/21/24 Location: [facility] Sex: F C Admitted: Test [...] Abnormal ECG Confirmed by ARNULFO GILMORE MD ([id number]), manuscript editor CESAR NOLAND ([id number]) on 07/24/2024 8:54:36 AM Referred By: Tawana Timmons Confirmed By: ARNULFO GILMORE MD 07/24/24 0854 Date _ Arnulfo Gilmore MD CC: Dr. Judie Bella MD; Dr. Tawana Timmons MD ~ Signed [facility] Work Phone: 12 Lead EKGon 07-21-2024 12 Lead EKG [facility] [address] [place] [address] 12 Lead EKG 07/21/24904 MR#: [id number] Acct: [id number] Name: SHU GSAPAR Rep #: [id number] : 1990 33 From: Arnulfo Gilmore MD Attending Dr: Dr. Tawana Timmons MD Status: REG CLI Ordering Dr: Tawana Timmons MD Date: 07/21/24 Location: [facility] Sex: F C Admitted: Test [...] Confirmed by PAUL DE LA CRUZ, ARNULFO ([id number]), manuscript editor CESAR NOLAND ([id number]) on 07/24/2024 8:54:36 AM Referred By: Tawana Timmons Confirmed By: ARNULFO GILMORE MD 07/24/24 0854 Date Arnulfo Gilmore MD CC: Dr. Judie Bella MD; Dr. Tawana Timmons MD Signed Normal [facility] Absolute lymphocyte countOrd ered By: Carmen Perdomo on 07-06-2024 Lymphocytes Auto (Unsp spec) [#/Vol] 2.48 10*3/uL 0.83-4.51 [facility] Absolute neutrophil countOrd ered By: Carmen Perdomo on 07-06-2024 Neutrophils (Bld) [#/Vol] 4.7 10*3/uL 2.0-7.7 [facility] Anion gap in Serum or Plasma Ordered By: Carmen Perdomo on 07-06-2024 Anion gap [Moles/Vol] 12 mmol/L - [facility] Automated lymphocyte count a s percentage of total leukocytesOrdered By: Carmen Perdomo on 07-06-2024 Lymphocytes/100 WBC Auto (Unsp spec) 30.4 % [facility] BUN/creatinine ratioOrdered By: Carmen Perdomo on 07-06-2024 Urea nitrogen/Creatinine [Mass ratio] 19.8 mg/mg 10-20 [facility] Basophil percentageOrdered B y: Carmen Perdomo on 07-06-2024 Basophils/100 WBC (Bld) 0.6 % 0-1 [facility] Bilirubin, totalOrdered By: Carmen Perdomo on 07-06-2024 Bilirubin [Mass/Vol] mg/dL 0.00-1.30 [facility] CBC W/Diff, Automatedon -2024 Absolute Lymph 2.48 X10 3/uL Normal 0.83-4.51 [facility] Comment on above: Performed By: #### L 509.4006, L509.8002, L3890.6006, L3890.6102, L3890.6301, L500.4050, L501.9985, L100.0100, L900.0098, BTS ####[facility] [address] [place], [address] Absolute Neut 4.7 X10 3/uL Normal 2.0-7.7 [facility] Comment on above: Performed By: #### L 509.4006, L509.8002, L3890.6006, L3890.6102, L3890.6301, L500.4050, L501.9985, L100.0100, L900.0098, BTS ####[facility] [address] [place], [address] Basophils/100 WBC (Bld) 0.6 % Normal 0-1 [facility] Comment on above: Performed By: #### L 509.4006, L509.8002, L3890.6006, L3890.6102, L3890.6301, L500.4050, L501.9985, L100.0100, L900.0098, BTS ####[facility] [address] [place], [address] Eosinophils/100 WBC (Bld) 3.4 % Normal 0-5 [facility] Comment on above: Performed By: #### L 509.4006, L509.8002, L3890.6006, L3890.6102, L3890.6301, L500.4050, L501.9985, L100.0100, L900.0098, BTS ####[facility] [address] [place], [place], [phone]) Erythrocyte distribution width (RBC) [Ratio] 13.1 % Normal 11.6-14.6 [facility] Comment on above: Performed By: #### L 509.4006, L509.8002, L3890.6006, L3890.6102, L3890.6301, L500.4050, L501.9985, L100.0100, L900.0098, BTS ####[facility] [address] [place], [place], [phone]) Hematocrit (Bld) [Volume fraction] 34.6 % Low 37-47 [facility] Comment on above: Performed By: #### L 509.4006, L509.8002, L3890.6006, L3890.6102, L3890.6301, L500.4050, L501.9985, L100.0100, L900.0098, BTS ####[facility] [address] [place], [place], [phone](141) Hemoglobin (Bld) [Mass/Vol] 11.6 g/dL Low 12.0-15.0 [facility] Comment on above: Performed By: #### L 509.4006, L509.8002, L3890.6006, L3890.6102, L3890.6301, L500.4050, L501.9985, L100.0100, L900.0098, BTS ####[facility] [address] [place], [address] IG% 0.400 Normal 0.0-0.9 [facility] Comment on above: Result Comment: IG% - Immature Granulocytes (promyelocytes, myelocytes and metamyelocytes) > 1% indicates that a LEFT SHIFT is Present. Performed By: #### L 509.4006, L509.8002, L3890.6006, L3890.6102, L3890.6301, L500.4050, L501.9985, L100.0100, L900.0098, BTS ####[facility] [address] [facility] [place], [place], [phone](859) Lymphocytes/100 WBC (Bld) 30.4 % Normal 19-41 [facility] Comment on above: Performed By: #### L 509.4006, L509.8002, L3890.6006, L3890.6102, L3890.6301, L500.4050, L501.9985, L100.0100, L900.0098, BTS ####[facility] [address] [place], [place], [phone] MCH (RBC) [Entitic mass] 29.7 pg Normal 27.0-32.0 [facility] Comment on above: Performed By: #### L 509.4006, L509.8002, L3890.6006, L3890.6102, L3890.6301, L500.4050, L501.9985, L100.0100, L900.0098, BTS ####[facility] [address] [place], [place], [phone] MCHC (RBC) [Mass/Vol] 33.5 g/dL Normal 32-36 [facility] Comment on above: Performed By: #### L 509.4006, L509.8002, L3890.6006, L3890.6102, L3890.6301, L500.4050, L501.9985, L100.0100, L900.0098, BTS ####[facility] [address] [facility] [place], [address] MCV (RBC) [Entitic vol] 88.7 fL Normal 81-99 [facility] Comment on above: Performed By: #### L 509.4006, L509.8002, L3890.6006, L3890.6102, L3890.6301, L500.4050, L501.9985, L100.0100, L900.0098, BTS ####[facility] [address] [place], [address] Monocytes/100 WBC (Bld) 7.6 % Normal 0-10 [facility] Comment on above: Performed By: #### L 509.4006, L509.8002, L3890.6006, L3890.6102, L3890.6301, L500.4050, L501.9985, L100.0100, L900.0098, BTS ####[facility] [address] [place], [place], [phone] Neutrophils/100 WBC (Bld) 57.6 % Normal 47-70 [facility] Comment on above: Performed By: #### L 509.4006, L509.8002, L3890.6006, L3890.6102, L3890.6301, L500.4050, L501.9985, L100.0100, L900.0098, BTS ####[facility] [address] [place], [address](508) Nucleated RBC (Bld) [#/Vol] 0 10*3/uL Normal 0-5 [facility] Comment on above: Performed By: #### L 509.4006, L509.8002, L3890.6006, L3890.6102, L3890.6301, L500.4050, L501.9985, L100.0100, L900.0098, BTS ####[facility] [address] [place], [address]( Platelet mean volume (Bld) [Entitic vol] 10.8 fL Normal 6.2-12.0 [facility] Comment on above: Performed By: #### L 509.4006, L509.8002, L3890.6006, L3890.6102, L3890.6301, L500.4050, L501.9985, L100.0100, L900.0098, BTS ####[facility] [address] [place], [address](796) Platelets (Bld) [#/Vol] 283 10*3/uL Normal 150-450 [facility] Comment on above: Performed By: #### L 509.4006, L509.8002, L3890.6006, L3890.6102, L3890.6301, L500.4050, L501.9985, L100.0100, L900.0098, BTS ####[facility] [address] [place], [address](729) RBC (Bld) [#/Vol] 3.90 10*6/uL Low 4.2-5.[address] [facility] Comment on above: Performed By: #### L 509.4006, L509.8002, L3890.6006, L3890.6102, L3890.6301, L500.4050, L501.9985, L100.0100, L900.0098, BTS ####[facility] [address] [place], [address](947) RDW SD 42.6 fl Normal 35.1-43.9 [facility] Comment on above: Performed By: #### L 509.4006, L509.8002, L3890.6006, L3890.6102, L3890.6301, L500.4050, L501.9985, L100.0100, L900.0098, BTS ####[facility] [address] [place], [address](415) WBC (Bld) [#/Vol] 8.2 10*3/uL Normal 4.4-11.0 [facility] Comment on above: Performed By: #### L 509.4006, L509.8002, L3890.6006, L3890.6102, L3890.6301, L500.4050, L501.9985, L100.0100, L900.0098, BTS ####[facility] [address] [place], [place], [phone] Carbon dioxide, total [Moles /volume] in Central venous bloodOrdered By: Carmen Perdomo on 07-06-2024 CO2 [Moles/Vol] 22.8 mmol/L 21.0-32.0 [facility] Chloride assayOrdered By: Zuleyma Perdomo on 07-06-2024 Chloride [Moles/Vol] 103 mmol/L 98-108 [facility] Comprehensive Metabolic Prof ilon 07-06-2024 Albumin [Mass/Vol] 3.6 g/dL Normal 3.5-5.0 [facility] Comment on above: Performed By: #### L 509.4006, L509.8002, L3890.6006, L3890.6102, L3890.6301, L500.4050, L501.9985, L100.0100, L900.0098, BTS ####[facility] [address] [place], [place], [phone] Albumin/Globulin [Mass ratio] 1.3 {ratio} Normal 0.9-2.4 [facility] Comment on above: Performed By: #### L 509.4006, L509.8002, L3890.6006, L3890.6102, L3890.6301, L500.4050, L501.9985, L100.0100, L900.0098, BTS ####[facility] [address] [place], [place], [phone] ALK PHOS 58 U/L Normal 35-104 [facility] Comment on above: Performed By: #### L 509.4006, L509.8002, L3890.6006, L3890.6102, L3890.6301, L500.4050, L501.9985, L100.0100, L900.0098, BTS ####[facility] [address] [place], [place], [phone](581) ALT [Catalytic activity/Vol] 15 U/L Normal <=34 [facility] Comment on above: Performed By: #### L 509.4006, L509.8002, L3890.6006, L3890.6102, L3890.6301, L500.4050, L501.9985, L100.0100, L900.0098, BTS ####[facility] [address] [place], [place], [phone] AST [Catalytic activity/Vol] 16 U/L Normal <=31 [facility] Comment on above: Performed By: #### L 509.4006, L509.8002, L3890.6006, L3890.6102, L3890.6301, L500.4050, L501.9985, L100.0100, L900.0098, BTS ####[facility] [address] [place], [place], [phone] BUN/CRE 19.8 RATIO Normal 10-20 [facility] Comment on above: Performed By: #### L 509.4006, L509.8002, L3890.6006, L3890.6102, L3890.6301, L500.4050, L501.9985, L100.0100, L900.0098, BTS ####[facility] [address] [place], [place], [phone] Calcium [Mass/Vol] 9.3 mg/dL Normal 7.6-11.0 [facility] Comment on above: Performed By: #### L 509.4006, L509.8002, L3890.6006, L3890.6102, L3890.6301, L500.4050, L501.9985, L100.0100, L900.0098, BTS ####[facility] [address] [place], [place], [phone](078) Chloride [Moles/Vol] 103 mmol/L Normal 98-108 [facility] Comment on above: Performed By: #### L 509.4006, L509.8002, L3890.6006, L3890.6102, L3890.6301, L500.4050, L501.9985, L100.0100, L900.0098, BTS ####[facility] [address] [place], [place], [phone](341) CO2 [Moles/Vol] 22.8 mmol/L Normal 21.0-32.0 [facility] Comment on above: Performed By: #### L 509.4006, L509.8002, L3890.6006, L3890.6102, L3890.6301, L500.4050, L501.9985, L100.0100, L900.0098, BTS ####[facility] [address] [facility] [place], [place], [phone](992) Creatinine [Mass/Vol] 0.53 mg/dL Low 0.70-1.20 [facility] Comment on above: Performed By: #### L 509.4006, L509.8002, L3890.6006, L3890.6102, L3890.6301, L500.4050, L501.9985, L100.0100, L900.0098, BTS ####[facility] [address] [place], [place], [phone](460) GAP 12 Normal 5-15 [facility] Comment on above: Performed By: #### L 509.4006, L509.8002, L3890.6006, L3890.6102, L3890.6301, L500.4050, L501.9985, L100.0100, L900.0098, BTS ####[facility] [address] [place], [address] GFR/1.73 sq M.predicted among non-blacks MDRD (S/P/Bld) [Vol rate/Area] 124 mL/min/{1.73_m2} Normal >60 [facility] Comment on above: Result Comment: mL/m in/1.73m2 CKD-EPI Creatinine Equation (2020) Performed By: #### L 509.4006, L509.8002, L3890.6006, L3890.6102, L3890.6301, L500.4050, L501.9985, L100.0100, L900.0098, BTS ####[facility] [address] [place], [address] Globulin (S) [Mass/Vol] 2.7 g/dL Normal 2.2-4.2 [facility] Comment on above: Performed By: #### L 509.4006, L509.8002, L3890.6006, L3890.6102, L3890.6301, L500.4050, L501.9985, L100.0100, L900.0098, BTS ####[facility] [address] [place], [address] Glucose [Mass/Vol] 99 mg/dL Normal 70-99 [facility] Comment on above: Performed By: #### L 509.4006, L509.8002, L3890.6006, L3890.6102, L3890.6301, L500.4050, L501.9985, L100.0100, L900.0098, BTS ####[facility] [address] [place], [address] Potassium [Moles/Vol] 3.8 mmol/L Normal 3.3-5.1 [facility] Comment on above: Performed By: #### L 509.4006, L509.8002, L3890.6006, L3890.6102, L3890.6301, L500.4050, L501.9985, L100.0100, L900.0098, BTS ####[facility] [address] [place], [place], [phone](148) Sodium [Moles/Vol] 138 mmol/L Normal 133-145 [facility] Comment on above: Performed By: #### L 509.4006, L509.8002, L3890.6006, L3890.6102, L3890.6301, L500.4050, L501.9985, L100.0100, L900.0098, BTS ####[facility] [address] [place], [place], [phone](157) T BILI < 0.15 Normal 0.00-1.30 [facility] Comment on above: Performed By: #### L 509.4006, L509.8002, L3890.6006, L3890.6102, L3890.6301, L500.4050, L501.9985, L100.0100, L900.0098, BTS ####[facility] [address] [place], [place], [phone](878) T PROT 6.3 g/dL Normal 5.9-8.4 [facility] Comment on above: Performed By: #### L 509.4006, L509.8002, L3890.6006, L3890.6102, L3890.6301, L500.4050, L501.9985, L100.0100, L900.0098, BTS ####[facility] [address] [place], [place], [phone](163) Urea nitrogen [Mass/Vol] 10 mg/dL Normal 4-19 [facility] Comment on above: Performed By: #### L 509.4006, L509.8002, L3890.6006, L3890.6102, L3890.6301, L500.4050, L501.9985, L100.0100, L900.0098, BTS ####[facility] [address] [place], [place], [address] Eosinophil percentageOrdered By: Carmen Perdomo on 07-06-2024 Eosinophils/100 WBC (Bld) 3.4 % 0-5 [facility] Erythrocyte distribution wid th ratioOrdered By: Cramen Perdomo on 07-06-2024 Erythrocyte distribution width (RBC) [Ratio] 13.1 % 11.6-14.6 [facility] Erythrocyte distribution wid th standard deviationOrdered By: Carmen Perdomo on 07-06-2024 Erythrocyte distribution width (RBC) [Ratio] 42.6 fl 35.1-43.9 [facility] Glomerular filtration rate ( GFR) estimation/1.73 sq m using serum, plasma, or whole bOrdered By: Carmen Perdomo on 07-06-2024 GFR/1.73 sq M.predicted among non-blacks MDRD (S/P/Bld) [Vol rate/Area] 124 mL/min/{1.73_m2} >60 [facility] Comment on above: mL/min/1.73m2 CKD-EP I Creatinine Equation (2020) HIVon 07-06-2024 HIV Non-Reactive Normal Nonreactive [facility] Comment on above: Result Comment: Non- Reactive Reactive Repeatedly reactive samples must be confirmed according to CDC recommended confirmatory algorithms. The subresults for either HIVAG or AHIV can be used as an aid in the selection of the confirmation algorithm for reactive samples. Send out specimens with Reactive results to [facility] for confirmation. Order the HIV antibody detection and differentiation: [id number] Performed By: #### L 509.4006, L509.8002, L3890.6006, L3890.6102, L3890.6301, L500.4050, L501.9985, L100.0100, L900.0098, BTS ####[facility] [id number] [place], [place], [id number] Hematocrit Auto (Bld) [Volum e fraction]Ordered By: Carmen Perdomo on 07-06-2024 Hematocrit (Bld) [Volume fraction] 34.6 % Low 37-47 [facility] Hemoglobin A1con 07-06-2024 HbA1c (Bld) [Mass fraction] 5.0 % Normal <=5.6 [facility] Comment on above: Result Comment: Norm al < 5.7 % Prediabetic 5.7 - 6.4 % Diabetic >or= 6.5 % Please note range changes. Performed By: #### L 509.4006, L509.8002, L3890.6006, L3890.6102, L3890.6301, L500.4050, L501.9985, L100.0100, L900.0098, BTS ####[facility] [id number] [place], [address] Hemoglobin A1c percentageOrd ered By: Carmen Perdomo on 07-06-2024 HbA1c (Bld) [Mass fraction] 5.0 % <5.7 [facility] Comment on above: Normal < 5.7 % Predi abetic 5.7 - 6.4 % Diabetic >or= 6.5 % Please note range changes. Hemoglobin measurementOrdere d By: Carmen Perdomo on 07-06-2024 Hemoglobin (Bld) [Mass/Vol] 11.6 g/dL Low 12.0-15.0 [facility] Hepatitis C Antibodyon 07-06 Hepatitis C Ab Non-Reactive Normal Nonreactive [facility] Comment on above: Result Comment: Reac tive: Presumptive evidence of antibodies to HCV. Follow CDC recommendations for supplemental testing. Non-Reactive: Antibodies to HCV were not detected; does not exclude the possibility of exposure to HCV Reactive Results are presumptive evidence of antibodies to HCV. Follow CDC recommendations for supplemental testing. Order confirmation testing: HCV Quant by PCR testing - HCVPCR #[id number] Non Reactive: < 0.8 Equivocal: >/= 0.8 to < 1.0 Reactive: >/= 1.0 The CDC requires that a reactive/equivocal HCV antibody result be sent out for confirmation. HCV Quant by PCR testing. Performed By: #### L 509.4006, L509.8002, L3890.6006, L3890.6102, L3890.6301, L500.4050, L501.9985, L100.0100, L900.0098, BTS ####[facility] [address] [facility] [place], [address] Immature granulocytes/100 WB C Auto (Bld)Ordered By: Carmen Perdomo on 07-06-2024 Immature granulocytes/100 WBC (Bld) 0.400 % 0.0-0.9 [facility] Comment on above: IG% - Immature Granu locytes (promyelocytes, myelocytes and metamyelocytes) > 1% indicates that a LEFT SHIFT is Present. L3890.6102on 07-06-2024 HEP B Surf Ag Non-Reactive Normal Nonreactive [facility] Comment on above: Result Comment: Reac tive: Presumptive evidence of HBV. Repeatedly reactive samples must be confirmed using a neutralization test ([employer] HBsAg Confirmatory Test) Non-Reactive: HBsAg not detected; does not exclude the possibility of exposure to HBV Performed By: #### L 509.4006, L509.8002, L3890.6006, L3890.6102, L3890.6301, L500.4050, L501.9985, L100.0100, L900.0098, BTS ####[facility] [address] [facility] [place], [address] L509.4006on 07-06-2024 Rubella IgG REAC Normal Nonreactive [facility] Comment on above: Result Comment: Anti body Result: Interpretation Non-Reactive: Non-Immune Reactive: Immune The following results were obtained with the [employer] Rubella IgG assay. Results from assays of other manufacturers cannot be used interchangeably. Performed By: #### L 509.4006, L509.8002, L3890.6006, L3890.6102, L3890.6301, L500.4050, L501.9985, L100.0100, L900.0098, BTS ####[facility] [address] [facility]. [place], [place], [id number] Laboratory - Chemistry and C hemistry - challengeOrdered By: Carmen Perdomo on 07-06-2024 AST [Catalytic activity/Vol] 16 U/L <32 [facility] Laboratory - Microbiology an d Antimicrobial susceptibilityOrdered By: Carmen Perdomo on 07-06-2024 HBV surface Ag Ql (S) Non-Reactive Nonreactive [facility] Comment on above: Reactive: Presumptiv e evidence of HBV. Repeatedly reactive samples must be confirmed using a neutralization test ([employer] HBsAg Confirmatory Test)Non-Reactive: HBsAg not detected; does not exclude the possibility of exposure to HBV MCV (mean corpuscular volume ) determinationOrdered By: Carmen Perdomo on 07-06-2024 MCV (RBC) [Entitic vol] 88.7 fL 81-99 [facility] Mean corpuscular hemoglobin (MCH) determinationOrdered By: Carmen Perdomo on 07-06-2024 MCH (RBC) [Entitic mass] 29.7 pg 27.0-32.0 [facility] Mean corpuscular hemoglobin concentration (MCHC) determinationOrdered By: Carmen Perdomo on 07-06-2024 MCHC (RBC) [Mass/Vol] 33.5 g/dL 32-36 [facility] Mean platelet volume determi nationOrdered By: Carmen Perdomo on 07-06-2024 Platelet mean volume (Bld) [Entitic vol] 10.8 fL 6.2-12.0 [facility] Monocyte percentageOrdered B y: Carmen Perdomo on 07-06-2024 Monocytes/100 WBC (Bld) 7.6 % 0-10 [facility] NATERAon 07-06-2024 NATURA SEE SCANNED REPORT Normal [facility] Comment on above: Performed By: #### L 509.4006, L509.8002, L3890.6006, L3890.6102, L3890.6301, L500.4050, L501.9985, L100.0100, L900.0098, BTS ####[facility] [address] [place], [place], [id number] Neutrophil percentageOrdered By: Carmen Perdomo on 07-06-2024 Neutrophils/100 WBC (Bld) 57.6 % 47-70 [facility] No Panel InformationOrdered By: Carmen Perdomo on 07-06-2024 HIV (1&2) Antibody Non-Reactive Nonreactive [facility] Comment on above: Non-ReactiveReactive Repeatedly reactive samples must be confirmed according to CDC recommended confirmatory algorithms. The subresults for either HIVAG or AHIV can be used as an aid in the selection of the confirmation algorithm for reactive samples.Send out specimens with Reactive results to [facility] for confirmation.Order the HIV antibody detection and differentiation: #[id number] Nucleated red blood cell per centageOrdered By: Carmen Perdomo on 07-06-2024 Nucleated RBC/100 WBC (Bld) [Ratio] 0 % 0-5 [facility] Transition Rn Office Visit Reporton 07-06-2024 Transition Rn Office Visit Report [facility]'s [address], [address] [place] [address] OFFICE VISIT Date of Service: 07/06/24 MR#: [id number] Acct: [id number] Name: SHU GASPAR Rep #: [id number] : 1990 Provider: Dr. 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.] physical activity do you participate in: none baylee/amish: None seatbelt use: always do you feel [...] with d (more content not included)... Normal [facility] Platelet countOrdered By: Zuleyma Perdomo on 07-06-2024 Platelets (Bld) [#/Vol] 283 10*3/uL 150-450 [facility] Potassium measurement (mass/ volume)Ordered By: Carmen Perdomo on 07-06-2024 Potassium (Unsp spec) [Mass/Vol] 3.8 mmol/L 3.3-5.1 [facility] RBC Auto (Bld) [#/Vol]Ordere d By: Carmen Perdomo on 07-06-2024 RBC (Bld) [#/Vol] 3.90 10*6/uL Low 4.2-5.[address] [facility] Serum creatinine measurement (mass/volume)Ordered By: Carmen Perdomo on 07-06-2024 Creatinine [Mass/Vol] 0.53 mg/dL Low 0.70-1.20 [facility] Serum globulin measurementOr dered By: Carmen Perdomo on 07-06-2024 Globulin (S) [Mass/Vol] 2.7 g/dL 2.2-4.2 [facility] Serum glucose measurement (m ass/volume)Ordered By: Carmen Perdomo on 07-06-2024 Glucose [Mass/Vol] 99 mg/dL 70-99 [facility] Serum or plasma alanine agarawl otransferase (ALT) measurementOrdered By: Carmen Perdomo on 07-06-2024 ALT [Catalytic activity/Vol] 15 U/L <35 [facility] Serum or plasma albumin laureano urement (mass/volume)Ordered By: Carmen Perdomo on 07-06-2024 Albumin [Mass/Vol] 3.6 g/dL 3.5-5.0 [facility] Serum or plasma albumin/glob ulin mass ratioOrdered By: Carmen Perdomo on 07-06-2024 Albumin/Globulin [Mass ratio] 1.3 {ratio} 0.9-2.4 [facility] Serum or plasma alkaline aylin sphatase measurementOrdered By: Carmen Perdoom on 07-06-2024 ALP [Catalytic activity/Vol] 58 U/L 35-104 [facility] Serum or plasma calcium laureano urement (mass/volume)Ordered By: Carmen Perdomo on 07-06-2024 Calcium [Mass/Vol] 9.3 mg/dL 7.6-11.0 [facility] Serum or plasma urea nitroge n measurement (mass/volume)Ordered By: Carmen Perdomo on 07-06-2024 Urea nitrogen [Mass/Vol] 10 mg/dL 4-19 [facility] Sodium levelOrdered By: Wandy Perdomo on 07-06-2024 Sodium [Moles/Vol] 138 mmol/L 133-145 [facility] Syphilis Antibodieson 2024 Syphilis Abs Non-Reactive Normal Nonreactive [facility] Comment on above: Performed By: #### L 509.4006, L509.8002, L3890.6006, L3890.6102, L3890.6301, L500.4050, L501.9985, L100.0100, L900.0098, BTS ####[facility] [address] [place], [place], [id number] Total proteinOrdered By: Viraj Perdomo on 07-06-2024 Protein [Mass/Vol] 6.3 g/dL 5.9-8.4 [facility] Type AND Screenon 07-06-2024 ABO and Rh group Nom (Bld) Blood group A Rh(D) positive Normal [facility] Comment on above: Order Comment: PN Performed By: #### L 509.4006, L509.8002, L3890.6006, L3890.6102, L3890.6301, L500.4050, L501.9985, L100.0100, L900.0098, BTS ####[facility] [address] [place], [place], [id number] White blood cell (WBC) count Ordered By: Carmen Perdomo on 07-06-2024 WBC (Bld) [#/Vol] 8.2 10*3/uL 4.4-11.0 [facility] Chlamydia/GC MCKENZIE aptimaon CHLAMY,NUC ACID Negative Normal Negative [facility] Comment on above: Performed By: #### L 501.0900, M100.2200, L7000.1800 ####[facility] [address] [place], [address] GC BY NUC ACID Negative Normal Negative [facility] Comment on above: Result Comment: Perf ormed at: =G - [facility] [address] [id number] Planning Associate: Abbie Siu MD, Phone: [phone] Performed By: #### L 501.0900, M100.2200, L7000.1800 ####[facility] [address] [place], [address] Urine Cultureon 06-12-2024 URC Below infection leve l. Mixed Gram Pos Gram Neg Org [place] Count 1000-10,000 MIXC Mixed contaminants. Submit a new specimen if indicated. Normal [facility] Comment on above: Performed By: #### L 501.0900, M100.2200, L7000.1800 ####[facility] [address] [place], [address] Chlamydia trachomatis rRNA d etection by probe and target amplification methodOrdered By: Carmen Perdomo on 06-09-2024 C. trachomatis rRNA MCKENZIE+probe Ql (Unsp spec) Negative Negative [facility] Creatinine Unsp time (U) [Ma ss/Vol]Ordered By: Carmen Perdomo on 06-09-2024 Creatinine (U) [Mass/Vol] 202.00 mg/dL 28.00-217.00 [facility] Neisseria gonorrhoeae nuclei c acid detection by amplified probe techniqueOrdered By: Carmen Perdomo on 06-09-2024 N. gonorrhoeae DNA MCKENZIE+probe Ql (Unsp spec) Negative Negative [facility] Comment on above: Performed at: =G - [facility] [address] [id number] Director: Abbie Siu MD, Phone: [phone] Transition Rn Office Visit Reporton 06-09-2024 Transition Rn Office Visit Report [facility]'[address], [address] [place] [address] OFFICE VISIT Date of Service: 06/09/24 MR#: [id number] Acct: [id number] Name: SHU GASPAR Rep #: [id number] : 1990 Provider: AMIE Talley ams Age/Sex: 33/F Location: [facility] Status: Signed Intake Vital Signs 05/03/24 12:07 06/09/24 13:11 Height 5 ft 2 in 5 ft 2 in Weight: 254 lb 8 oz BMI 46.5 BP 125/80 H Intake Visit Reasons: NOB LMP 2/2 Chief Complaint: New OB 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 Acce (more content not included)... Normal [facility] Protein+Creatinine Ratio,Uri neon 06-09-2024 PROT:CRE RATIO 119 mg/g CRE Normal 0-200 [facility] Comment on above: Performed By: #### L 501.0900, M100.2200, L7000.1800 ####[facility] [address] [place], [id number] Protein (U) [Mass/Vol] 24.0 mg/dL High 0.0-12.0 [facility] Comment on above: Performed By: #### L 501.0900, M100.2200, L7000.1800 ####[facility] [address] [place], [address] UR CREAT 202.00 mg/dL Normal 28.00-217.00 [facility] Comment on above: Performed By: #### L 501.0900, M100.2200, L7000.1800 ####[facility] [address] [place], [address] Protein/Creatinine (U) [Mass ratio]Ordered By: Carmen Perdomo on 06-09-2024 Urine Protein/Creatinine Ratio 119 mg/g CRE 0-200 [facility] Random urine creatinine laureano urement (mass/volume)Ordered By: Carmen ePrdomo on 06-09-2024 Creatinine Unsp time (U) [Mass/Vol] 202.00 mg/dL 28.00-217.00 [facility] Urine cultureOrdered By: Viraj Perdomo on 06-09-2024 Bacteria identified Cx Nom (U) Mixed Gram Pos & Gram Neg Org Abnormal [facility] Urine protein measurement (m ass/volume)Ordered By: Carmen Perdomo on 06-09-2024 Protein (U) [Mass/Vol] 24.0 mg/dL High 0.0-12.0 [facility] Urine protein/creatinine mas s ratioOrdered By: Carmen Perdomo on 06-09-2024 Protein/Creatinine (U) [Mass ratio] 119 mg/g CRE 0-200 [facility] PAP IG HPV APTIMA 16/18,45on 05-08-2024 ADEQ Comment Normal . [facility] Comment on above: Order Comment: Speci men Comment: [id number] Comment: No. of containers..01 ThinPrep Vial Result Comment: Sati sfactory for evaluation. Endocervical and/or squamous metaplastic cells (endocervical component) are present. Performed By: #### L 7400.0280 ####[facility] [address] [place], [address] COMM . Normal . [facility] Comment on above: Order Comment: Speci men Comment: [id number] Comment: No. of containers..01 ThinPrep Vial Performed By: #### L 7400.0280 ####[facility] [address] [place], [place], [address] COMMENT Comment Normal . [facility] Comment on above: Order Comment: Speci men Comment: [id number] Comment: No. of containers..01 ThinPrep Vial Result Comment: This liquid based ThinPrep(R) pap test was screened with the use of an image guided system. Performed By: #### L 7400.0280 ####[facility] [address] [place], [address] DIAG Comment Normal . [facility] Comment on above: Order Comment: Speci men Comment: [id number] Comment: No. of containers..01 ThinPrep Vial Result Comment: NEGA TIVE FOR INTRAEPITHELIAL LESION OR MALIGNANCY. CELLULAR CHANGES ASSOCIATED WITH INFLAMMATION ARE PRESENT. Performed By: #### L 7400.0280 ####[facility] [address] [place], [address] HPV APTIMA, HR Negative Normal Negative [facility] Comment on above: Order Comment: Speci men Comment: [id number] Comment: No. of containers..01 ThinPrep Vial Result Comment: This nucleic acid amplification test detects fourteen high- risk HPV types (16,18,31,33,35,39,45,51,52,56,58,59,66,68) without differentiation. Performed By: #### L 7400.0280 ####[facility] [address] [place], [address] HPV Genna Rfx Comment Normal . [facility] Comment on above: Order Comment: Speci men Comment: [id number] Comment: No. of containers..01 ThinPrep Vial Result Comment: Crit eria not met, HPV Genotype not performed. Performed at: [address] [id number] Planning Associate: Abbie Siu MD, Phone: [phone] Performed at: =[address] [id number] Planning Associate: Abbie Siu MD, Phone: [phone] Performed By: #### L 7400.0280 ####[facility] [address] [place], [place], [address] PAPSMR Comment Normal . [facility] Comment on above: Order Comment: Speci men Comment: [id number] Comment: No. of containers..01 ThinPrep Vial Result Comment: The Pap smear is a screening test designed to aid in the detection of premalignant and malignant conditions of the uterine cervix. It is not a diagnostic procedure and should not be used as the sole means of detecting cervical cancer. Both false-positive and false-negative reports do occur. Performed By: #### L 7400.0280 ####[facility] [address] [place], [place], [address] PERFORM Comment Normal . [facility] Comment on above: Order Comment: Speci men Comment: [id number] Comment: No. of containers..01 ThinPrep Vial Result Comment: Hipolito Fields, Solar Pv Installer Performed By: #### L 7400.0280 ####[facility] [address] [place], [place], [id number] Cervical or vaginal specimen microscopic examination by liquid based cytology (reportOrdered By: Carmen Perdomo on 05-03-2024 Cytology report Cyto stain.thin prep Doc (Cvx/Vag) Comment . [facility] Comment on above: Criteria not met, HP V Genotype not performed.Performed at: - [address] [id number] Director: Abbie Siu MD, Phone: [phone] at: =[address] [id number] Director: Abbie Siu MD, Phone: [phone] Cervical or vagninal specime n microscopic examination by cytology stain (reported asOrdered By: Carmen Perdomo on 05-03-2024 Cytology report Cyto stain Doc (Cvx/Vag) Comment . [facility] Comment on above: The Pap smear is a s creening test designed to aid in thedetection of premalignant and malignant conditions of theuterine cervix. It is not a diagnostic procedure andshould not be used as the sole means of detecting cervicalcancer. Both false-positive and false-negative reports dooccur. Hotbed Lever Operator Cyto stain Nom (C vx/Vag) [ID]Ordered By: Carmen Perdomo on 05-03-2024 Pap Smear Performed By Comment . [facility] Comment on above: [place], Cyto technologist Cytology report Cyto stain D oc (Cvx/Vag)Ordered By: Carmen Perdomo on 05-03-2024 Thin Prep Pap Smear Comment . [facility] Comment on above: The Pap smear [...] 05-03-2024 HPV Genotype Special Info Comment . [facility] Comment on above: Criteria not met, HP V Genotype not performed.Performed at: - [facility] [id number] Director: Abbie Siu MD, Phone: [phone] at: = - [facility] [address] [id number] Director: Abbie Siu MD, Phone: [phone] Detection in cervical specim en of any of human papilloma virus (HPV) 16, 18, 31, 33,Ordered By: Carmen Perdomo on 05-03-2024 HPV 16+18+31+33+35+39+45+5 1+52+56+58+59+66+68 DNA Probe+sig amp Ql (Cvx) Negative Negative [facility] Comment on above: This nucleic acid am plification test detects fourteen high- risk HPV types (16,18,31,33,35,39,45,51,52,56,58,59,66,68)without differentiation. HPV 16+18+31+33+35+39+45+51+ 52+56+58+59+66+68 DNA Probe+sig amp Ql (Cvx)Ordered By: Carmen Perdomo on 05-03-2024 Human Papillomavirus High Risk Negative Negative [facility] Comment on above: This nucleic acid am plification test detects fourteen high- risk HPV types (16,18,31,33,35,39,45,51,52,56,58,59,66,68)without differentiation. Image-guided ThinPrep PapOrd ered By: Carmen Perdomo on 05-03-2024 Pap Smear Note Comment . [facility] Comment on above: This liquid based Th inPrep(R) pap test was screened withthe use of an image guided system. Image-guided liquid-based Pa pOrdered By: Carmen Perdomo on 05-03-2024 Pap Smear Diagnosis Comment . [facility] Comment on above: NEGATIVE FOR INTRAEP ITHELIAL LESION OR MALIGNANCY.CELLULAR CHANGES ASSOCIATED WITH INFLAMMATION ARE PRESENT. Laboratory - CytologyOrdered By: Carmen Perdomo on 05-03-2024 Hotbed Lever Operator Cyto stain Nom (Cvx/Vag) [ID] Comment . [facility] Comment on above: [place] Cyto technologist Laboratory - Miscellaneous t estsOrdered By: Carmen Perdomo on 05-03-2024 Service comment (Unsp spec) [Interp] . . [facility] No Panel InformationOrdered By: Carmen Perdomo on 05-03-2024 Pap Smear Specimen Adequacy Comment . [facility] Comment on above: Satisfactory for rosalinda luation. Endocervical and/or squamous metaplasticcells (endocervical component) are present. 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 Normal [facility] Service comment (Unsp spec) [Interp]Ordered By: Carmen Perdomo on 05-03-2024 Pap Smear Comment (3) . . [facility] .Auto Diffon 08-05-2023 Basophil, Absolute 0.1 10 3/mcL Normal 0.0-0.2 [facility] ([place]) Comment on above: Performed By: #### B MP, DIMER, CBC, ADIFF, GFR, MDW, ANEU, TROPHS #### [address] [address] Basophils/100 WBC (Bld) 0.8 % Normal 0.0-2.5 [facility] ([place]) Comment on above: Performed By: #### B MP, DIMER, CBC, ADIFF, GFR, MDW, ANEU, TROPHS #### [address] [address] Eosinophil, Absolute 0.3 10 3/mcL Normal 0.0-0.4 [facility] ([place]) Comment on above: Performed By: #### B MP, DIMER, CBC, ADIFF, GFR, MDW, ANEU, TROPHS #### [address] [address] Eosinophils/100 WBC (Bld) 2.7 % Normal 0.0-7.0 [facility] ([place]) Comment on above: Performed By: #### B MP, DIMER, CBC, ADIFF, GFR, MDW, ANEU, TROPHS #### [address] [address] Lymphocyte, Absolute 2.9 10 3/mcL Normal 0.8-3.9 [facility] ([place]) Comment on above: Performed By: #### B MP, DIMER, CBC, ADIFF, GFR, MDW, ANEU, TROPHS #### [address] [address] Lymphocytes/100 WBC (Bld) 29.5 % Normal 10.0-50.0 [facility] ([place]) Comment on above: Performed By: #### B MP, DIMER, CBC, ADIFF, GFR, MDW, ANEU, TROPHS #### [address] [address] Monocyte, Absolute 0.5 10 3/mcL Normal 0.2-1.0 [facility] ([place]) Comment on above: Performed By: #### B MP, DIMER, CBC, ADIFF, GFR, MDW, ANEU, TROPHS #### [address] [address] Monocytes/100 WBC (Bld) 5.2 % Normal 1.7-13.0 [facility] ([place]) Comment on above: Performed By: #### B MP, DIMER, CBC, ADIFF, GFR, MDW, ANEU, TROPHS #### [address] [address] Neutrophils/100 WBC (Bld) 61.8 % Normal 37.0-80.0 [facility] ([place]) Comment on above: Performed By: #### B MP, DIMER, CBC, ADIFF, GFR, MDW, ANEU, TROPHS #### [address] [address] .GFRon 08-05-2023 GFR 100 ml/min/1.73sqm Normal [facility] ([place]) Comment on above: Result Comment: GFR Population [...] CBC, ADIFF, GFR, MDW, ANEU, TROPHS #### [address] [address] GFR Non- 82 ml/min/1.73sqm Normal [facility] ([place]) Comment on above: Result Comment: GFR Population [...] CBC, ADIFF, GFR, MDW, ANEU, TROPHS #### [address] [address] .MDWon 08-05-2023 Monocyte Distribution Width 19.22 Normal 0.00-20.00 [facility] ([place]) Comment on above: Result Comment: For ED adult patients suspected of sepsis, MDW<=20.0 does not rule out sepsis or risk of sepsis Performed By: #### B MP, DIMER, CBC, ADIFF, GFR, MDW, ANEU, TROPHS #### [address] [address] .NEUABSon 08-05-2023 Neutrophil, Absolute 6.2 10 3/mcL Normal 2.9-6.2 [facility] ([place]) Comment on above: Performed By: #### B MP, DIMER, CBC, ADIFF, GFR, MDW, ANEU, TROPHS #### [address] [address] BMPon 08-05-2023 BUN/Creatinine Ratio 18 ratio Normal 7-27 [facility] ([place]) Comment on above: Performed By: #### B MP, DIMER, CBC, ADIFF, GFR, MDW, ANEU, TROPHS #### [address] [address] Calcium [Mass/Vol] 9.2 mg/dL Normal 8.4-10.2 [facility] ([place]) Comment on above: Performed By: #### B MP, DIMER, CBC, ADIFF, GFR, MDW, ANEU, TROPHS #### [address] [address] Chloride [Moles/Vol] 104 mmol/L Normal 98-107 [facility] ([place]) Comment on above: Performed By: #### B MP, DIMER, CBC, ADIFF, GFR, MDW, ANEU, TROPHS #### [address] [address] CO2 [Moles/Vol] 27 mmol/L Normal 22-29 [facility] ([place]) Comment on above: Performed By: #### B MP, DIMER, CBC, ADIFF, GFR, MDW, ANEU, TROPHS #### [address] [address] Creatinine [Mass/Vol] 0.80 mg/dL Normal 0.55-1.02 [facility] ([place]) Comment on above: Performed By: #### B MP, DIMER, CBC, ADIFF, GFR, MDW, ANEU, TROPHS #### [address] [address] Electrolyte Balance 11.0 mEq/L Normal 4.0-15.0 [facility] ([place]) Comment on above: Performed By: #### B MP, DIMER, CBC, ADIFF, GFR, MDW, ANEU, TROPHS #### [address] [address] Glucose [Mass/Vol] 100 mg/dL Normal 70-105 [facility] ([place]) Comment on above: Performed By: #### B MP, DIMER, CBC, ADIFF, GFR, MDW, ANEU, TROPHS #### [address] [address] Potassium [Moles/Vol] 3.6 mmol/L Normal 3.5-5.1 [facility] ([place]) Comment on above: Performed By: #### B MP, DIMER, CBC, ADIFF, GFR, MDW, ANEU, TROPHS #### [address] [address] Sodium [Moles/Vol] 142 mmol/L Normal 136-145 [facility] ([place]) Comment on above: Performed By: #### B MP, DIMER, CBC, ADIFF, GFR, MDW, ANEU, TROPHS #### [address] [address] Urea nitrogen [Mass/Vol] 14 mg/dL Normal 7-18 [facility] ([place]) Comment on above: Performed By: #### B MP, DIMER, CBC, ADIFF, GFR, MDW, ANEU, TROPHS #### [place] [id number] CBCon 08-05-2023 Erythrocyte distribution width (RBC) [Ratio] 13.0 % Normal 11.5-14.5 [facility] ([place]) Comment on above: Performed By: #### B MP, DIMER, CBC, ADIFF, GFR, MDW, ANEU, TROPHS #### [address] [address] Hematocrit (Bld) [Volume fraction] 37.2 % Normal 37.0-47.0 [facility] ([place]) Comment on above: Performed By: #### B MP, DIMER, CBC, ADIFF, GFR, MDW, ANEU, TROPHS #### [address] [address] Hgb 12.5 G/dL Normal 12.0-16.0 [facility] ([place]) Comment on above: Performed By: #### B MP, DIMER, CBC, ADIFF, GFR, MDW, ANEU, TROPHS #### [address] [address] MCH (RBC) [Entitic mass] 29.6 pg Normal 27.0-31.2 [facility] ([place]) Comment on above: Performed By: #### B MP, DIMER, CBC, ADIFF, GFR, MDW, ANEU, TROPHS #### [address] [address] MCHC 33.5 G/dL Normal 33.0-37.0 [facility] ([place]) Comment on above: Performed By: #### B MP, DIMER, CBC, ADIFF, GFR, MDW, ANEU, TROPHS #### [address] [address] MCV (RBC) [Entitic vol] 88.4 fL Normal 80.0-94.0 [facility] ([place]) Comment on above: Performed By: #### B MP, DIMER, CBC, ADIFF, GFR, MDW, ANEU, TROPHS #### [place] [address] Platelet 365 10 3/mcL Normal 130-400 [facility] ([place]) Comment on above: Performed By: #### B MP, DIMER, CBC, ADIFF, GFR, MDW, ANEU, TROPHS #### [place] [address] Platelet mean volume (Bld) [Entitic vol] 7.6 fL Normal 7.4-10.4 [facility] ([place]) Comment on above: Performed By: #### B MP, DIMER, CBC, ADIFF, GFR, MDW, ANEU, TROPHS #### [place] [id number] RBC 4.21 10 6/mcL Normal 4.20-5.40 [facility] ([place]) Comment on above: Performed By: #### B MP, DIMER, CBC, ADIFF, GFR, MDW, ANEU, TROPHS #### [address] [address] WBC 10.0 10 3/mcL Normal 4.6-10.8 [facility] ([place]) Comment on above: Performed By: #### B MP, DIMER, CBC, ADIFF, GFR, MDW, ANEU, TROPHS #### [address] [address] [address] ANGIOGRAPHY CHEST W/CONTR Javier 08-05-2023 CT [...] Date: 08/05/2023 9:17:05 PM Ordering Provider: DARIUS KAUFMAN Normal [facility]) DIMERon 08-05-2023 D-Dimer 619 ng/mL D-DU High 0-230 [facility] ([place]) Comment on above: Result Comment: Resu lts [...] (DVT) and pulmonary embolism (PE). Performed By: [place]### B MP, DIMER, CBC, ADIFF, GFR, MDW, ANEU, TROPHS #### [place] [id number] LABORATORYOrdered By: Mary Herrera on 08-05-2023 HCG [...] ng/L Male: 0-76 ng/L Testing performed on [place] using a homogeneous sandwich chemiluminescent immunoassay based on [employer] technology. Urea nitrogen [Mass/Vol] 14 mg/dL Normal [...] HCG ( test) Ql (U) Negative Normal [facility] ([place]) Comment on above: Performed By: #### B MP, DIMER, CBC, ADIFF, GFR, MDW, ANEU, TROPHS #### [place] [address] test (u) int Not detected Invalid Interpretation Code [facility] ([place]) Comment on above: Performed By: #### B MP, DIMER, CBC, ADIFF, GFR, MDW, ANEU, TROPHS #### [address] [address] TROPHSon 08-05-2023 High Sensitivity Troponin I <4 Normal 0-51 [facility]) Comment on above: Result Comment: High Sensitive Troponin I Reference Ranges: Female: 0-51 ng/L Male: 0-76 ng/L Testing performed on [address] [place] using a homogeneous sandwich chemiluminescent immunoassay based on [employer] technology. Performed By: #### B MP, DIMER, CBC, ADIFF, GFR, MDW, ANEU, TROPHS #### [address] [address] XR CHEST 1 VIEWon 08-05-2023 XR CHEST [...] Date: 08/05/2023 5:14:52 PM Ordering Provider: DARIUS KAUFMAN [facility] ([place]) COAT TAILOR - Office Visiton 02-06 COAT TAILOR - Office Visit Patient Discussion/Summary The patient [...] to the COVID-19 Pandemic 6 wk PPV It Security Consultant Declined: MIKAELA Ty History of Present IllnessPt. [...] changes plans to go back to work 03/29 resumed sexual activity w/ condoms is not [...] belt D (more content not included)... Normal [facility] Psychiatry Adulton 2 Psychiatry Adult Diagnoses/Problems Assessed Depression (311) (F32.A) *Orders Depression Start: Escitalopram Oxalate 20 MG Oral Tablet; Take 1 tablet daily Adult Psychology Referral Evaluation and Treatment Evaluate AND Treat for PMADS Status: Hold For - Scheduling Requested for: [id number] Depression (311) (F32.A) Provider Impressions IMP: 31 yo MFG1P! referred by OB. PMH May 2021, in September 2021. together for one yr. 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 Delivered baby boyChda, 01/05/22, unplanned via at 39wga. . Hx [...] 3-4 hours sleep for first 6 weeks. [place] like want to escape, no SI/HI. Had [...] 2021, together for one yr. Working on [employer] Employee Delivered baby boyChad, 01/05/22, from unplanned via [...] helpful, parents one hour away. is fantastic. [place] like want to escape, no SI/HI. Had [...] thinking self rated anxiety in past week 7/10 , gets anxious if baby not getting enough sleep. WILL Denies PTSD: No abuse, trauma, or neglect. No FBs, nightmares, intrusive recall PSYCHOSIS. Denies SUBSTANCE USE: PMH Diagnosed PP HTN Routine Medication: Labetalol , no longer taking off for one week 130/80 ALLERGIES NKDA Contraception Condoms COVID Vax PMH Out patient Treatment - October 2020 'had [...] not at allQ8: Not very oftenQ9: Only [id number]: Never COAT TAILOR - Visiton 02-04-2022 COAT TAILOR - Visit Chief Complaint PPV EPDS= 5 Declined It Security Consultant: LEONARDA Oquendo History of Present IllnessThe patient is being seen for follow up. The patient is status post vaginal delivery. Obstetrical complications include pre-eclampsia and After delivery. Delivery date was 01.05.22. The baby is a boy. The baby's name is Chad. weight was 7 lbs, 8 oz. [place] complications include respiratory distress. He was circumcised. [...] year [facility] [place] 2420 DO Work Phone: Last menstrual period start date PP [facility] [place] 2420 DO Work Phone: Tobacco use status CPHS b) No MG-OBGYNNolberto ramírez 5660 DO Work Phone: COAT TAILOR - Office Visiton 11 COAT TAILOR - Office Visit Diagnoses/Problems Assessed state (V24.2) (Z39.2) HBP (high blood pressure) (401.9) (I10) Provider Impressions Reviewed BPs. Continue labetalol 100 BID, monitor BPs BID and RTO in 2 wks. Hydrate and eat following visit. If headache does not resolve will present to [facility] for eval of possible post magnesium treatment. Patient voiced understanding. Chief Complaint Patient here for B/P check c/o JEFFERS DOD 01/05/22 VD It Security Consultant declined Shanon COATES History of Present IllnessPatient [...] (U) [facility] [address] [place] Work Phone: COAT TAILOR - Office Visiton 01-06 COAT TAILOR - Office Visit Diagnoses/Problems Assessed Dysuria (788.1) (R30.0) Gestational hypertension (642.30) (O13.9) Orders Cult, Urine; Status:In Progress - Specimen/Data Collected,Retrospective Authorization; Done: 15Jan2022 Urine Site : Clean Catch/Voided Provider Impressions Will get larger BP cuff and monitor at home. If 160/110 or higher, or headache, vision changes or RUQ pain will present to [facility] Follow up with me on Wednesday after a few days of monitoring with new cuff to see if dose adjustment needed Urine culutre send for dysuria. 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 valACYclovir HCl - 500 MG Oral Tablettake one tablet twice a day for remainder of for suppression Vitals Vital Signs Recorded: 15Jan2022 03:07PM [id number] Height5 ft 2 in Physical Exam Constitutional: Alert and in no acute distress. Well developed, well nourished Head and Face: Head and face: normal Eyes: Normal external exam - nonicteric sclera, extraocular movements intact (EOMI) and no ptosis. Ears, Nose, Mouth, and Throat: (more content not included)... Normal [facility] URINE CULTURE,BACTERIALon URINE CULTURE,BACTERIAL PATIENT: SHU GASPAR [place]ATION[place] [facility] [place]#: [id number] : 86 AGE: SEX: F ORDERED BY: SUKI YOU SOURCE: URINE COLLECTED: 01/15/22 00:00 ANTIBIOTICS AT MELISSA.: RECEIVED : 01/15/22 22:17 SITE: Clean Catch/Voided R E S U L T S URINE CULTURE,BACTERIAL FINAL 01/16/22 16:36 NO GROWTH Normal [facility] Comment on above: Performed By: #### U [facility] ####[id number] [place] [address] Basophil percentageon 2021 Bilirubin [Mass/Vol] 0.30 mg/dL 0.20-1.00 [facility] Work Phone: Comment on above: For patients on eltr ombopag therapy, use of Dimension [place] TBIL is not recommended. Chloride [Moles/Vol] 107 mmol/L 98-107 [facility] Work Phone: Glucose [Mass/Vol] 83 mg/dL 74-106 [facility] Work Phone: Potassium [Moles/Vol] 3.8 mmol/L 3.5-5.1 [facility] Work Phone: Protein [Mass/Vol] 6.4 g/dL 6.4-8.2 [facility] Work Phone: Sodium [Moles/Vol] 143 mmol/L 136-145 [facility] Work Phone: WBC (Bld) [#/Vol] 10.5 10*3/uL 4.4-11.[address] [facility] Work Phone: Blood erythrocytes count (nu mber/volume)on 01-11-2022 RBC (Bld) [#/Vol] 3.55 10*6/uL 4.2-5.[address] [facility] Work Phone: Blood hemoglobin measurement (mass/volume)on 01-11-2022 Hemoglobin (Bld) [Mass/Vol] 10.3 g/dL 12.0-15.0 [facility] Work Phone: Blood platelet mean volumeon 01-11-2022 Platelet mean volume (Bld) [Entitic vol] 9.8 fL 6.2-12.0 [facility] Work Phone: Determination of erythrocyte mean corpuscular volume (MCV)on 01-11-2022 MCV (RBC) [Entitic vol] 90.7 fL 81-99 [facility] Work Phone: Hematocrit Auto (Bld) [Volum e fraction]on 01-11-2022 Hematocrit (Bld) [Volume fraction] 32.2 % 37-47 [facility] Work Phone: Laboratory - Chemistry and C hemistry - challengeon 01-11-2022 ALP [Catalytic activity/Vol] 141 U/L 45-117 [facility] Work Phone: ALT [Catalytic activity/Vol] 23 U/L 13-56 [facility] Work Phone: CO2 [Moles/Vol] 29.0 mmol/L 21.0-32.0 [facility] Work Phone: Globulin (S) [Mass/Vol] 4.1 g/dL 2.2-4.2 [facility] Work Phone: Urea nitrogen/Creatinine [Mass ratio] 14.8 mg/mg 10-20 [facility] Work Phone: Laboratory - Hematology and Cell countson 01-11-2022 Erythrocyte distribution width (RBC) [Entitic vol] 45.0 fL 35.1-43.9 [facility] Work Phone: Erythrocyte distribution width (RBC) [Ratio] 13.5 % 11.6-14.6 [facility] Work Phone: MCH (RBC) [Entitic mass] 29.0 pg 27.0-32.0 [facility] Work Phone: MCHC Auto (RBC) [Mass/Vol]on 01-11-2022 MCHC (RBC) [Mass/Vol] 32.0 g/dL 32-36 [facility] Work [facility]: No Panel Informationon 01-11 Estimated Creatinine Clearance Calc 103.75 ml/min [facility] Work Phone: Estimated GFR (MDRD) Amer 145 mL/min >60 [facility] Work Phone: Comment on above: GFR Calc Estimated GFR (MDRD) Non-Af Amer 120 mL/min >60 [facility] Work Phone: Comment on above: Non- GFR Calc Platelets bldon 01-11-2022 Platelets (Bld) [#/Vol] 326 10*3/uL 150-450 [facility] Work Phone: Serum or plasma albumin laureano urement (mass/volume)on 01-11-2022 Albumin [Mass/Vol] 2.3 g/dL 3.2-5.0 [facility] Work Phone: Serum or plasma albumin/glob ulin mass ratioon 01-11-2022 Albumin/Globulin [Mass ratio] 0.6 {ratio} 0.9-2.4 [facility] Work Phone: Serum or plasma calcium laureano urement (mass/volume)on 01-11-2022 Calcium [Mass/Vol] 9.1 mg/dL 8.5-10.1 [facility] Work Phone: Serum or plasma creatinine m easurement (mass/volume)on 01-11-2022 Creatinine [Mass/Vol] 0.61 mg/dL 0.55-1.02 [facility] Work Phone: Comment on above: The validity of the calculated GFR & GFRAA in patients over 70 years has not been determined. Clinical correlation is essential. Serum or plasma urea nitroge n measurement (mass/volume)on 01-11-2022 Urea nitrogen [Mass/Vol] 9 mg/dL 7-18 [facility] Work Phone: Serum or plasma uric acid me asurement (mass/volume)on 01-11-2022 Urate [Mass/Vol] 4.5 mg/dL 2.6-6.0 [facility] Work Phone: Comment on above: The drugs N-Acetylcy steine and Metamizole may falsely depress this assay. Thin prep Papanicolaou smear with manual screeningon 01-11-2022 Thin prep Papanicolaou smear with manual screening 16 U/L 15-37 [facility] Work Phone: Thin prep Papanicolaou smear with manual screening 7 5-15 [facility] Work Phone: Order Reconciliationon 01-07 Order Reconciliation Page 1 Discharge Reconciliation Document Reconciliation Type: Discharge requested on behalf of Yasmin Lackey (Advanced Practice Nurse) done by Yasmin Lackey (INSURANCE BILLING SPECIALIST-QUALITY ASSURANCE ASSISTANT) Discharge - Reconciliation: 07-Jan-2022 09:51 by: Yasmin Lackey (INSURANCE BILLING SPECIALIST-QUALITY ASSURANCE ASSISTANT) Home Medications EnteredHOME MEDICATIONS AT DISCHARGE DateReconciliation [...] tablet Benzocaine 20% - Menthol 0.5% Topical Lenora (DERMOPLAST)DOSE = 1 application(s) Topical 4 Times [...] -Mumps -Rubel (more content not included)... Normal [facility] Clinical Event Note-BP Cuff and Home [...] agreed to order home BP monitor from [email or web address]. Large BP monitor delivered to room. Patient educated on how to use BP monitor, recording BPs on home monitoring log and s/sx to report to her provider. Pt verbalized understanding the above information. Electronic Signatures: Colleen Monterroso (GRACIA) (Signed 06-Jan-2022 11:06) Authored: Clinical Event Note Last Updated: 06-Jan-2022 11:06 by Colleen Monterroso (GRACIA) [facility] Daily Progress Note - OB-Pos t-partumon 01-06-2022 Daily Progress Note - SK-Svxe-quadjy Current Stage: Stage: Post- Subjective Data: Post : Ambulate: Yes Flatus: Yes Tolerate Diet: Yes Lochia: Light Desired Contraception: Depo-Provera - Contraception options reviewed, including risks and benefits. Pain Comment: well controlled with PO medications. : Pt seen with baby and support person @ bedside in NAD. Alert, conversational. Denies JEFFERS, N/V, RUQ pain, vision changes. Objective Information: Objective Information: T PRBPMAPSpO2 [id number]/176749% Date/Time01/06 8: 8: 8: 8: 8: 8:52 [...] home Maternal Well-Being - emotional support provided [place] Feeding - /pumping encouraged; consult prn notable [...] (she/her) Doc Halo/Vocera Electronic Signatures: Yasmin Lackey (INSURANCE BILLING SPECIALIST-QUALITY ASSURANCE ASSISTANT) (Signed 06-Jan-2022 16:16) Authored: Current Stage, Subjective Data, Objective Data, Assessment and Plan, Note Completion Last Updated: 06-Jan-2022 16:16 by Yasmin Lackey (INSURANCE BILLING SPECIALIST-QUALITY ASSURANCE ASSISTANT) Normal [facility] Clinical Event Note-Labor Ch eckon 01-05-2022 Clinical Event Note-Labor Check Clinical Event: Clinical Event Note: TopicLabor Check Details S: Pt resting comfortably with some intermittent rectal pressure. Consents to cervical exam. O: FHR 150, moderate, +accels, -decels toco: every 2-3 mins VE: 10/100/0 A: IUP at 39.3 wks cat I FHR 2nd stage P: Will begin maternal pushing efforts. Anticipate . ALLY Beckham Electronic Signatures: Tameka Gonsalves (INSURANCE BILLING SPECIALIST-[facility]) (Signed 05-Jan-2022 04:42) Authored: Clinical Event Note Last Updated: 05-Jan-2022 04:42 by Tameka Gonsalves (INSURANCE BILLING SPECIALIST-[facility]) Normal [facility] Clinical Event Note-Labor Check Clinical Event: [...] BP. ALLY Beckham Electronic Signatures: Tameka Gonsalves ([facility]) (Signed 05-Jan-2022 03:50) Authored: Clinical Event Note Last Updated: 05-Jan-2022 03:50 by Tameka Gonsalves ([facility]) Normal [facility] Clinical Event Note-Labor Check Clinical Event: [...] Last Updated: 05-Jan-2022 02:30 by Tameka Gonsalves ([facility]) Normal [facility] Clinical Event Note-Labor ch eckon 01-05-2022 [...] CEFM per guidelines. Reassess as indicated. Anticipate ALLY Silva Electronic Signatures: Tameka Gonsalves ([facility]) (Signed 05-Jan-2022 00:26) Authored: Clinical Event Note Last Updated: 05-Jan-2022 00:26 by Tameka Gonsalves ([facility]) Normal [facility] Delivery Recordon 01-05-2022 Delivery Record Lab Tests/Results: Labs: Labs: Blood Typed Date: 13-Jun-2021 Blood Type: A positive Antibody Screen Results: negative Chlamydia Date: 13-Jun-2021 Chlamydia Results: negative Gonorrhea Date: 13-Jun-2021 Gonorrhea Results: negative Group B Strep Date: 12-Dec-2021 Strep Results: negative GCT (-y): 03-Oct-2021 GCT result: 116 HBsAG Date: 13-Jun-2021 HBsAG Results: negative Hemoglobin A1C (dd-mmm-yy): 13-Jun-2021 Hemoglobin A1C: 5.2 % Estimated Average Glucose: 103 HIV Date: 13-Jun-2021 HIV Results: negative Rubella Date: 03-Oct-2021 Rubella Results: nonimmune Rubella Comments: Result Value Negative Syphilis (mmm-dd-yyyy): 04-Jan-2022 Syphilis Results: negative Urine Spot (dd-mmm-yy): 04-Jan-2022 Total Protein/Creatinine Ratio: 0.17 [place] Delivery Information: A Delivery Information: Baby A Delivery: Rupture of Membranes date/[id number] 20:55 Amniotic Fluid Colorclear Delivery Typevaginal delivery Delivery Locationlabor and delivery Delivery Date/[id number] 06:51 Length of Time of ROM (rounded down to nearest hour)9 Sexmale Identification Band [id number] Electronic Transponder [id number] ID Bands Verified byAmelia FAGAN/ Eddie FAGAN [...] Apgars assessed byAmelia FAGAN Delivery Team: Nancy NurseTanya Cisneros RN Electronic Signatures: Harvey Neumann (RN) (Signed 05-Jan-2022 09:08) Authored: [place] Delivery Information Ariana Morgan (RN) (Signed 05-Jan-2022 07:05) Authored: Lab Tests/Results, Delivery Information Last Updated: 05-Jan-2022 09:08 by Harvey Neumann (RN) [facility] Discharge Planning [id number] 1 Discharge Planning Note2 Discharge Planning: Planned Dispositionhome Anticipated Discharge [id number] Discharge Planning Date and Time: 01/05/22 @ [...] Alaina Mijares RN Assessment: Discharge Planning Assessment [id number] Lives Withsignificant other(1) [place] Resource/Environmental Concernsnon(1) [place]) Services Anticipated at Transitionnon(1) Discharge Documentation: Code StatusCode Status order at time of discharge: Full Code Electronic Signatures: Alaina Mijares (GRACIA) (Signed 05-Jan-2022 09:50) Authored: Discharge Planning, Assessment, Discharge Documentation Last Updated: 05-Jan-2022 09:50 by Alaina Mijares (GRACIA) References: 1. Data Referenced From Patient Profile - OB v3 04-Jan-2022 08:29 Normal [facility] Discharge [id number] 022 Discharge Profile2 Discharge Orders: Anticipated Discharge Date: Anticipated Discharge [id number] DNAR: Code Status at Discharge: Full Code [...] 110 or higher, call your doctor or community relations manager immediately. Blood Pressure Systolic (upper number) 150 - 159 OR Diastolic (bottom number) 100 - 109, repeat in one hour. If repeat Blood Pressure Systolic 150 - 159 OR Diastolic 100 - 109, call your doctor or community relations manager to discuss blood pressure management.. Follow-Up - OB Provider: Physician/Dept/Miroslava Provider CommentsPlease call for BP check within 2-5 days and a 4-6wk visit Provider FINAL REVIEW of Orders: Final Review: Final Review of Medication Reconciliation and Orders Completedby TERRY Santana at 07-Jan-2022 09:50:54 Appointments: Follow-Up Appointment 01: Physician/Omar/Miroslava Provider Reason for ReferralBlood Pressure Check Scheduled Date/[id number] 14:30 Follow-Up Appointment 02: Physician/Stiven Reason for ReferralPPV Call to Schedule in4-6 Weeks CommentsPlease call to schedule Other Clinician Instructions: Other Instructions: Nursing InstructionsThe Somali Academy of Pediatrics recommends that pacifier use [...] but are not otherwise recommended while the infant is learning to breastfeed. Other Clinician InstructionsAny [...] to nearest emergency room. *Information obtained from Alex: (more content not included)... Normal [facility] No Panel Informationon 01-05 [facility] Work Phone: ORDER RECD [facility]-Ri sman [facility] Work Phone: Order Reconciliationon 01-05 Order Reconciliation Page 1 Transfer Reconciliation Document Reconciliation Type: Transfer requested on behalf of Tameka Gonsalves (Advanced Practice Nurse) done by Tameka Gonsalves (INSURANCE BILLING SPECIALIST-CN) Transfer - Reconciliation: 05-Jan-2022 07:37 by: Tameka Gonsalves (INSURANCE BILLING SPECIALIST-CN) Pre-Transfer OrdersDateReconciliation Comment/ Additional InformationPost Transfer OrdersDateStop [...] Notes: Contraind (more content not included)... Normal [facility] REQUEST-LEUKOREDUCED RED HORACE LSon 01-05-2022 REQUEST-LEUKOREDUCED RED CELLS ORDER RECD Normal [facility] Comment on above: Performed By: #### O WHIZZER OPERATOR ####[id number] Surgical Pathology Depar tmenton 01-05-2022 [facility] Surgical Pathology Department Name SHU GASPAR Pathologist: [...] reviewed this case. Diagnostic interpretation performed at [facility] [address] [facility] [address] Clinical History: Gestational age: 39.3 Ob index: [...] measuring 7.0 x 6.0 x 1.8 cm. Manual Tester sections are submitted in 5 cassettes. [facility] Summary of Cassettes: Specimen Label Site A 1 umbilical cord sections 2 membrane rolls 3 placental parenchyma, umbilical cord insertion site 4 placental parenchyma with attached blood clot 5 placental parenchyma djo/01/06/2022 [facility] Department of Pathology [id number] [place] [address] Normal [facility] Comment on above: Performed By: #### T +S #### [address] [place] [address] Admission Risk Screen - OBon 01-04-2022 Admission [...] Learning Preferencesverbal instruction Cultural Considerationsnone Developmental Considerationsnone Faith Considerationsnone Learning Assessment (Other Learner): Other learner [...] Spiritual Screen: Are there any cultural, spiritual, episcopal practices/values/needs that are important for us to knowno Depression Screen: During the past month, have you often been bothered by feeling down, depressed or hopelessno During the past month, have you often had little interest or pleasure in doing thingsno Have you had any thoughts of harming anyone elseno [place] Suicide: Risk Screen Not Applicable/Able to Answerable to be screened In the Past Month: Have you wished you were or could go to sleep and not wake upno In the Past Month: Have you had any actual thoughts of killing yourselfno Lifetime: Have you ever done, started to do, or prepared to do anything to end your lifeno [place] Suicide Risknegative Family Violence Screen: Are you [...] with underlying chronic conditions or reside in intermediate care facilitiesnone of these conditions Persons with Functional or Anatomic Asplenianone of these conditions Immunocompromised Personsnone of these conditions Pneumonia vaccine NOT indicated due to:patient DOES NOT have a condition that indicates vaccination Vaccination - TDap Vaccination Screen: Have you received a TDap vaccine this pregnancyyes (no further action required) (more content not included)... Normal [facility] CBCon 01-04-2022 Erythrocyte distribution width (RBC) [Ratio] 13.8 % Normal 11.5 - 14.5 [facility] Comment on above: Performed By: #### O WHIZZER OPERATOR #### [facility] [address] [place] [address] Hematocrit (Bld) [Volume fraction] 34.1 % Low 36.0 - 46.0 [facility] Comment on above: Performed By: #### O WHIZZER OPERATOR #### [facility] [address] [place] [address] Hemoglobin (Bld) [Mass/Vol] 11.1 g/dL Low 12.0 - 16.0 [facility] Comment on above: Performed By: #### O WHIZZER OPERATOR #### [facility] [address] [place] [address] MCHC (RBC) [Mass/Vol] 32.6 g/dL Normal 32.0 - 36.0 [facility] Comment on above: Performed By: #### O WHIZZER OPERATOR #### [facility] [address] [place] [address] MCV (RBC) [Entitic vol] 91 fL Normal 80 - 100 [facility] Comment on above: Performed By: #### O WHIZZER OPERATOR #### [facility] [address] [place] [address] NUCLEATED RBC 0.0 /100 WBC Normal 0.0-0.0 [facility] Comment on above: Performed By: #### O WHIZZER OPERATOR #### [place] [id number] [place] [address] Platelets (Bld) [#/Vol] 224 10*3/uL Normal 150 - 450 [facility] Comment on above: Performed By: #### O WHIZZER OPERATOR #### [facility] [address] [place] [address] RBC 3.76 x10E12/L Low 4.00 - 5.20 [facility] Comment on above: Performed By: #### O WHIZZER OPERATOR #### [facility] [address] [place] [address] WBC (Bld) [#/Vol] 10.5 10*3/uL Normal 4.4 - 11.3 [facility] Comment on above: Performed By: #### O WHIZZER OPERATOR #### [facility] [address] [place] [address] COMPREHENSIVE PANELon 2021 Albumin [Mass/Vol] 3.2 g/dL Low 3.4 - 5.0 [facility] Comment on above: Performed By: #### O WHIZZER OPERATOR #### [facility] [address] [place] [address] ALP [Catalytic activity/Vol] 192 U/L High 33 - 110 MG-OBGYN-Ri sman 100 [facility] Work Phone: Comment on above: Performed By: #### O WHIZZER OPERATOR #### [facility] [address] [place] [address] ALT [Catalytic activity/Vol] 10 U/L Normal 7 - 45 [facility] Comment on above: Result Comment: Kim ents treated with Sulfasalazine may generate falsely decreased results for ALT. Performed By: #### O WHIZZER OPERATOR #### [facility] [address] [place] [address] Anion gap [Moles/Vol] 13 mmol/L Normal 10 - 20 MG- OBGYN-Ri sman [address] [facility] Work Phone: Comment on above: Performed By: #### O WHIZZER OPERATOR #### [facility] [address] [place] AST [Catalytic activity/Vol] 14 U/L Normal 9 - 39 [facility] Comment on above: Performed By: #### O WHIZZER OPERATOR #### [facility] [address] [place] [address] Bilirubin [Mass/Vol] 0.3 mg/dL Normal 0.0 - 1.2 MG-O BGYN-Ri sman [address] [facility] Work Phone: Comment on above: Performed By: #### O WHIZZER OPERATOR #### [facility] [address] [place] [address] Calcium [Mass/Vol] 8.6 mg/dL Normal 8.6 - 10.6 MG-OBG YN-Ri sman [address] [facility] Work Phone: Comment on above: Performed By: #### O WHIZZER OPERATOR #### [facility] [address] [place] [address] Chloride [Moles/Vol] 108 mmol/L High 98 - 107 MG-O BGYN-Ri sman [address] [facility] Work Phone: Comment on above: Performed By: #### O WHIZZER OPERATOR #### [facility] [address] [place] [address] Creatinine [Mass/Vol] 0.47 mg/dL Low 0.50 - 1.05 MG -OBGYN-Ri sman [address] [facility] Work Phone: Comment on above: Reference Range: 0.5 0 - 1.05 Performed By: #### O WHIZZER OPERATOR #### [facility] [address] [place] [address] eGFR FEMALE >90 Normal >90 [facility] Comment on above: Result Comment: CALC ULATIONS OF ESTIMATED GFR ARE PERFORMED USING THE 2020 CKD-EPI STUDY REFIT EQUATION WITHOUT THE RACE VARIABLE FOR THE IDMS-TRACEABLE CREATININE METHODS. https://jasn.asnjournals.org/content/early/ASN.42993 94610 Performed By: #### O WHIZZER OPERATOR #### [facility] [address] [place] [address] Glucose [Mass/Vol] 94 mg/dL Normal 74 - 99 MG-OBG YN-Ri sman [address] [facility] Work Phone: Comment on above: Performed By: #### O WHIZZER OPERATOR #### [facility] [address] [place] [address] HCO3 (Bld) [Moles/Vol] 21 mmol/L Normal 21 - 32 [facility] Comment on above: Performed By: #### O WHIZZER OPERATOR #### [facility] [address] [place] [address] Potassium [Moles/Vol] 4.0 mmol/L Normal 3.5 - 5.3 MG- OBGYN-Ri sman [address] [place] [address] Work Phone: Comment on above: Performed By: #### O WHIZZER OPERATOR #### [facility] [address] [place] [address] Protein [Mass/Vol] 5.4 g/dL Low 6.4 - 8.2 MG-OBG YN-Ri sman [address] [facility] Work Phone: Comment on above: Performed By: #### O WHIZZER OPERATOR #### [facility] [address] [place] [address] Sodium [Moles/Vol] 138 mmol/L Normal 136 - 145 MG-OBG YN-Ri sman 100 [facility] Work Phone: Comment on above: Performed By: #### O WHIZZER OPERATOR #### [facility] [address] [place] [address] Urea nitrogen [Mass/Vol] 10 mg/dL Normal 6 - 23 MG-OBGYN-Ri sman [address] [facility] Work Phone: Comment on above: Performed By: #### O WHIZZER OPERATOR #### [facility] [address] [place] [address] Daily Progress Note - OB-Int rapartumon 01-04-2022 Daily Progress Note - OB-Intrapartum Current Stage: Stage: Intrapartum Subjective Data: Intrapartum: Intrapartum Progress Notes Pt resting comfortably with epidural, consents to cervical exam. Objective Information: Objective Information: T PRBPMAPSpO2 [id number]% Date/Time01/04 20: 21: 20: 21: 21: 21:35 Range(36.5C - 36.8C ) (74 - 103 ) (16 - 18 ) (126 - 166 )/ (65 - 93 ) (94 - 116 ) (90% - 100% ) Pain reported at 01/04 20:30: 0 = None ---- Intake and Output ----- Mn/Dy/Year TimeIntakeOutFormerly [facility] Jan 04, 2022 2:00 pm000 Physical Exam: Constitutional: alert, oriented Obstetric: FHR: 135, moderate, -accels, -decels toco: q2-4 mins VE: 5/60/-2, AROM for clear fluid Eyes: pupils equal, sclerae clear Respiratory/Thorax: normal respiratory effort Gastrointestinal: gravid abdomen, non-tender, soft Neurological: grossly intact Psychological: appropriate affect, coping well with labor Skin: warm, dry Recent Lab Results: Results: CBC: 01/04/2022 09:25 \\ Hgb / \\ 11.1 L / WBC Plt 10.5 224 / Hct \\ / 34.1 L \\ RBC: 3.76 L MCV: 91 CMP: 01/04/2022 19:00 NA+ Cl- BUN / 138 108 H 10 / ------- Glucose -- 94 K+ HCO3- Creat \\ 4.0 21 0.47 L \\ \\ T Bili / \\ 0.3 / AST x ---- x ALT 14 x ---- x 10 / Alk P \\ / 192 H \\ Calcium : 8.6 Anion Gap : 13 [...] diagnosis. ALLY Beckham Electronic Signatures: Tameka Gonsalves ([facility]) (Signed 04-Jan-2022 21:46) Authored: Current Stage, Subjective Data, Objective Data, Assessment and Plan, Note Completion Last Updated: 04-Jan-2022 21:46 by Tameka Gonsalves ([facility]) Normal [facility] LDHon 01-04-2022 LDH 145 U/L Normal 84 - 246 [facility] Comment on above: Performed By: #### L #### [facility] [address] [place] [address] Laboratory - Blood bankon ABO group Nom (Bld) A MG-MANUFACTURING QUALITY ENGINEER[facility] Work Phone: Blood group antibody screen Ql Negative MG-OBGYN-Ri [facility] [address] [facility] Work Phone: Rh immune globulin screen (Bld) [Interp] Positive [facility] Work Phone: Laboratory - Chemistry and C hemistry - challengeon 01-04-2022 Albumin BCP dye [Mass/Vol] 3.2 g/dL below low threshold 3.4 - 5.0 MG-OBGYN-Ri sman 100 [facility] Work Phone: ALT With P-5'-P [Catalytic activity/Vol] 10 U/L 7 - 45 MG-OBGYN-Ri sman 100 [facility] Work Phone: Comment on above: Patients treated wit h Sulfasalazine may generate falsely decreased results for ALT. AST With P-5'-P [Catalytic activity/Vol] 14 U/L 9 - 39 MG-OBGYN-Ri sman 100 [facility] Work Phone: CO2 [Moles/Vol] 21 mmol/L 21 - 32 MG-OBGYN- Ri sman 100 [facility] Work Phone: LDH [Catalytic activity/Vol] 145 U/L 84 - 246 MG-OBGYN-Ri sman 100 [facility] Work Phone: Laboratory - Hematology and Cell countson 01-04-2022 Erythrocyte distribution width (RBC) [Ratio] 13.8 % See Below MG-OBGYN-Ri sman 100 [facility] Work Phone: Comment on above: Reference Range: 11. 5 - 14.5 Hematocrit (Bld) [Volume fraction] 34.1 % below low threshold See Below MG-OBGYN-Ri sman 100 [facility] Work Phone: Comment on above: Reference Range: 36. 0 - 46.0 Hemoglobin (Bld) [Mass/Vol] 11.1 g/dL below low threshold See Below MG-OBGYN-Ri sman 100 [facility] Work Phone: Comment on above: Reference Range: 12. 0 - 16.0 MCHC (RBC) [Mass/Vol] 32.6 g/dL See Below MG- OBGYN-Ri sman 100 [facility] Work Phone: Comment on above: Reference Range: 32. 0 - 36.0 MCV (RBC) [Entitic vol] 91 fL 80 - 100 MG-OBGYN-Ri sman 100 [facility] Work Phone: Platelets (Bld) [#/Vol] 224 10*3/uL 150 - 450 MG-OBGYN-Ri sman 100 [facility] Work Phone: RBC (Bld) [#/Vol] 3.76 {x10E12/L} below low threshold See Below MG-OBGYN-Ri sman 100 [facility] Work Phone: Comment on above: Reference Range: 4.0 0 - 5.20 WBC (Bld) [#/Vol] 10.5 10*3/uL 4.4 - 11.3 MG-MANUFACTURING QUALITY ENGINEER-Ri sman 100 [facility] Work Phone: No Panel Informationon 01-04 >90 >90 MG-OBGYN-Ri sman 100 [facility] Work Phone: Comment on above: CALCULATIONS OF ASIYA MATED GFR ARE PERFORMED USING THE 2020 CKD-EPI STUDY REFIT EQUATION WITHOUT THE RACE VARIABLE FOR THE IDMS-TRACEABLE CREATININE METHODS.https://jasn.asnjournals.org/content//A SN.7866998236 ORDER RECD MG-OBGYN-Ri sman 100 [facility] Work Phone: 0.0 {/100_WBC} 0.0-0.0 [facility] Work Phone: Order Reconciliationon 01-04 Order Reconciliation Page 1 Admission Reconciliation Document Reconciliation Type: Admission requested on behalf of Grace Valdez (Advanced Practice Nurse) done by Grace Valdez (INSURANCE BILLING SPECIALIST-CNM) Admission - Reconciliation: 04-Jan-2022 08:43 by: Grace Valdez (INSURANCE BILLING SPECIALIST-CNM) Home MedicationsEnteredLast Dose TakenReconciled with current Order Reconciliation Comment/ Additional Information Aspir 81 oral delayed release tablet 1 tab(s) orally once a [id number] Reviewed and Held Lexapro 10 mg oral tablet 1 tab(s) orally once a [id number] Escitalopram Tablet (LEXAPRO)DOSE = 10 mg Oral DailyLexapro 10 mg oral tablet continued as the inpatient order Escitalopram Prena1 oral capsule 1 cap(s) orally once a [id number] Reviewed and Held Vitamin C 04-Jan-2022 Reviewed and Held Vitamin D3 1250 mcg (50,000 intl units) oral capsule cap(s) orally once a week 04-Jan-2022 Reviewed and Held Normal [facility] Patient Profile - OB v3on Patient Profile - OB v3 Profile: Initial Info: How to be AddressedSamantha or Thierry Spoken Language PreferredEnglish Source of Informationpatient Reason for admission this visitexpected delivery Wants Family/Rep Notified of Admissionn/a; family present Notify PCPdo not notify PCP Informed of Patient [place] Belongingsremains with patient Patient Belongings Remaining with Patientclothing Home Meds have been Reviewed and Verified with Patient/Familyyes Medications Brought to Hospitalno Info: Gravida1 (1) Term Deliveries0 (1) Deliveries0 (1) Abortions0 (1) Living Children0 (1) Patient stated [id number] Calculation of EGA based on patient stated EDD39.2 Records availableyes Trimester Care Initiatedfirst Care ProviderPetr Morrell Current Riskspolyhydramnios Previous live (any gestational age)no Planno Baby's Post Discharge Care Provider (Provider Name, Address and Phone Number) [facility] Feedingbreastmilk Benefits of Breast Milk DiscussionThe benefits of exclusive breast milk feeding and the risk of adding formula have been discussed with patient / mother. Discussion Date / [id number] 08:30 Previous Experienceyes General Health: Current Weight in kg122 kilogram(s) Current Weight in ztb750.9 pound(s) Weight Methodactual (measured) Scale Typestanding Pre [...] Lives Withsignificant other Resource/Environmental Concernsnone Anticipated Transition [facility] Anticipated at Transitionnone Additional Information: Information [...] Note - OB v4 23-Dec-2021 17:47 Normal [facility] REQUEST-LEUKOREDUCED RED HORACE LSon 01-04-2022 REQUEST-LEUKOREDUCED RED CELLS ORDER RECD Normal [facility] Comment on above: Performed By: #### O WHIZZER OPERATOR #### [facility] [address] [place] [address] SYPHILIS SCREENING WITH REFL EXon 01-04-2022 SYPHILIS TOTAL AB Non-Reactive Normal NONREACTIVE [facility] Comment on above: Result Comment: No s ignificant level of Treponema pallidum antibody detected. Repeat testing in 2 to 4 weeks may be considered if early infection or incubating syphilis infection is suspected. Performed By: #### S YPHR ####[id number] [place] [address] Lab Specimen Source Normal [facility] Comment on above: Performed By: #### S YPHR ####[id number] [place] [address] T. pallidum IgG+IgM IA Ql (S) Non-Reactive See Below MG-OBGYN-Ri sman 100 [facility] Work Phone: Comment on above: SOURCE: Reference Ra nge: NONREACTIVENo significant level of Treponema pallidum antibody detected. Repeat testing in 2 to 4 weeks may be considered if early infection or incubating syphilis infection is suspected. TOTAL PROTEIN, URINE SPOTon 01-04-2022 CREATININE,URINE 226.0 mg/dL Normal 20.0 - 320.0 [facility] Comment on above: Performed By: #### T PS2 #### [facility] [address] [place] [address] T. PROTEIN/CREAT RATIO 0.17 mg/mg Creat Normal 0.00 - 0.17 [facility] Comment on above: Performed By: #### T PS2 #### [facility] [address] [place] [address] TOTAL PROT,URINE SPOT 38 mg/dL High 5 - 24 [facility] Comment on above: Performed By: #### T PS2 #### [facility] [address] [place] [address] TYPE + SCREENon 01-04-2022 ABO TYPE A Normal [facility] Comment on above: Performed By: #### T +S #### [facility] [address] [place] [address] RH TYPE Positive Normal [facility] Comment on above: Performed By: #### T +S #### [facility] [address] [place] [address] Total Protein, Urine Spoton 01-04-2022 Creatinine (U) [Mass/Vol] 226.0 mg/dL See Below MG-OBGYN-Ri sman 100 [facility] Work Phone: Comment on above: Reference Range: 20. 0 - 320.0 Protein (U) [Mass/Vol] 38 mg/dL above hig h threshold 5 - 24 MG-OBGYN-Ri [facility] [address] [facility] Work Phone: Protein/Creatinine (U) [Ratio] 0.17 {mg/mg_Creat} See Below MG-OBGYN-Ri [facility] [address] [facility] Work Phone: Comment on above: Reference Range: 0.0 0 - 0.17 Uric Acid, Serumon Urate [Mass/Vol] 3.6 mg/dL Normal 2.3 - 6.7 MG-OBGYN -Ri [address] Work Phone: Comment on above: Venipuncture [...] dosing. Performed By: #### T +S #### [facility] [address] [place] [address] Coronavirus 2019 RNA by PCR, Symptomaticon 01-02-2022 Coronavirus 2019 RNA by PCR, Symptomatic Not detected Normal See Below MG-OBGYN-Ri [address] Work Phone: Comment on above: SOURCE: Nasal, Nasop haryngealReference Range: Not Detected.This test has received FDA Emergency Use Authorization (EUA) and has been verified by [facility]. This test is only authorized for the duration of time that circumstances exist to justify the authorization of the emergency use of in vitro diagnostic tests for the detection of SARS-CoV-2 virus and/or diagnosis of COVID-19 infection under section 564(b)(1) of the Act, 21 U.S.C. 360bbb-3(b)(1), unless the authorization is terminated or revoked sooner. [facility] is certified under CLIA-88 as qualified to perform high complexity testing. Testing is performed in the [facility] laboratory located at [address] [place] [address].SARS-CoV-2/Flu/RSV Multiplex Test: Fact sheet for providers: https://www.fda.gov/media/294666/downloadFact sheet for patients: https://www.fda.gov/media/538874/download Covid 19 Resultson 2 SARS-CoV-2 (COVID-19) RNA [...] You may also be contacted by the [facility] to see if any of [...] or Naproxen (Aleve) can also be used. Atqr-ngy-qvtmpbi cough and cold medicines can be used according to the instructions on the package. Some sdpm-rtp-jhgprat medicines also contain acetaminophen. Make sure you [...] water are not available, use alcohol-based hand timber robber. Avoid touching your eyes, nose, and mouth [...] 24 nae (more content not included)... Normal [facility] Daily Progress Note - OB-Tri ageon [...] NIPS - Rubella NON immune - Covid-19 recovered, Oct 2021 - Class III Obesity OBHx: first GynHx: Hx of HPV, HSV PMH: PCOS, anxiety/depression PSH: estefania romero 2012 Meds: PNV, Valtrex 500mg BID, Lexapro 10 daily All: NKDA Objective Information: Objective Information: T PRBPMAPSpO2 [id number] Date/Time12/23 17: 17: 17:50 Range (108 - 108 ) (121 - 121 )/ (78 - 78 ) (95 - 95 ) Physical Exam: Constitutional: alert, oriented Obstetric: gravid FHTs 135 baseline, moderate variability, +accels after SVE, -decels UC every 2-3 min SVE: fingertip/60/-3 Respiratory/Thorax: normal respiratory effort Extremities: no edema Psychological: appropriate affect Testing: NST Interpretation - Baby A: Baseline [id number] Variabilitymoderate (amplitude range 6 to 25 bpm) [...] Amelia Zamora CNM Electronic Signatures: Amelia Zamora (INSURANCE BILLING SPECIALIST-CNSocorro) (Signed 23-Dec-2021 18:52) Authored: Current Stage, Subjective Data, Objective Data, Testing, Assessment and Plan, Note Completion Last Updated: 23-Dec-2021 18:52 by Amelia Zamora (INSURANCE BILLING SPECIALIST-CNM) Normal [facility] Discharge Spnpwpd0xd 12-23- 022 Discharge Profile2 Discharge Orders: Anticipated Discharge Date: Anticipated Discharge [id number] Anticipated Discharge Time18:48 DNAR: Code Status at [...] Review of Medication Reconciliation and Orders Completedby ALLY Arango at 23-Dec-2021 18:48:55 Electronic Signatures: Amelia Zamora (MAGALY-AMIE) (Signed 23-Dec-2021 18:48) Authored: Discharge Orders, Triage OB, Provider FINAL REVIEW of Orders, Gold Form - Search Marketing Coordinator Summary Last Updated: 23-Dec-2021 18:48 by Amelia Zamora (INSURANCE BILLING SPECIALIST-CN) Normal [facility] Order Reconciliationon 12-23 Order Reconciliation Page 1 Discharge Reconciliation Document Reconciliation Type: Discharge requested on behalf of Amelia Zamora (Advanced Practice Nurse) done by Amelia Zamora (INSURANCE BILLING SPECIALIST-CN) Discharge - Reconciliation: 23-Dec-2021 18:47 by: Amelia Zamora (INSURANCE BILLING SPECIALIST-CN) Home Medications EnteredHOME MEDICATIONS AT DISCHARGE DateReconciliation [...] capsule cap(s) orally once a week Normal [facility] Risk Screen - OB Triageon Risk [...] Learning Preferencesverbal instruction Cultural Considerationsnone Developmental Considerationsnone Faith Considerationsnone Learning Assessment (Other Learner): Other learner availableno Depression/Suicide: Depression Screen: During the past month, have you often been bothered by feeling down, depressed or hopelessno During the past month, have you often had little interest or pleasure in doing thingsno Have you had any thoughts of harming anyone elseno [place] Suicide: Risk Screen Not Applicable/Able to Answerable to be screened In the Past Month: Have you wished you were or could go to sleep and not wake upno In the Past Month: Have you had any actual thoughts of killing yourselfno Lifetime: Have you ever done, started to do, or prepared to do anything to end your lifeno [place] Suicide Risknegative Family Violence: Abuse Screen: Are [...] Violence Last Updated: 23-Dec-2021 17:47 by Shu Huff) [facility] Triage Note - OB v4on 2021 Triage Note - OB v4 Triage: General Info: Time of Arrival on [id number]-[id number] 17:33 Patient arrived [place]amb[place] Acuity Level3 Chief Complaintdecreased movement Weight in kg119 kilogram(s) Weight in qvg819.3 pound(s) Weight Methodactual (measured) Scale Typestanding Height [...] Known Allergies: Active Electronic Signatures: Shu Huff (GRACIA) (Signed 23-Dec-2021 18:52) Authored: General Info, Info, Substance, Disposition/Disch, Travel History, Additional Information Last Updated: 23-Dec-2021 18:52 by Shu Huff (GRACIA) Normal [facility] No Panel Informationon 12-22 Normal [facility]-OBGYN-Ri sman 100 [facility] Work Phone: OB Biophysical profile (w/o NST)on [...] of AF: mildly increased MVP 6.5 cm. JOHN 22.1 cm. Q1 6.3 cm, Q2 5.9 cm, Q3 3.4 cm, Q4 6.5 cm Maternal Structures Uterus / Cervix Uterus: Visualized Cervix: Not examined Ovaries / Tubes / Adnexa Rt ovary: Not visualized Lt ovary: Not visualized Method ====== Transabdominal ultrasound examination. View: Poor view. Electronically signed by: KRYSTAL CABRAL MD Normal [facility] No Panel Informationon 12-15 Normal [facility]-OBGYN-Ri sman 100 [facility] Work Phone: OB Follow up or repeat [...] 2% 63.4 82% 2946 54% Impression ========= MsSantosh Roy presents for repeat assessment of growth [...] EFW (oz) 8 oz EFW by: Hadlock (UUW-BZ-DH-FL) Extended Waste Specialist 5.6 mm Head / Face / Neck [...] age Electronically signed by: KRYSTAL CABRAL MD Normal [facility] Daily Progress Note - OB-Tri ageon 12-12-2021 Daily Progress Note - OB-Triage Current Stage: Stage: Triage OB Dating: EDC/EGA: Final [id number] EGA36 Subjective Data: Antepartum: Vaginal Bleeding: No [...] 48.8 Objective Information: Objective Information: T PRBPMAPSpO2 [id number]% Date/Time12/12 19: 17: 17: 17: 19:41 Range (88 - 113 ) (18 - 18 ) (124 - 124 )/ (83 - 83 ) (96 - 96 ) (91% - 99% ) Pain reported at 12/12 17:26: 0 = None Physical Exam: Constitutional: Alert, conversational, well-appearing Obstetric: FHT: 130, mod variability, +accels, -decels [place]: quiet Eyes: Sclera white, EOM intact, no [...] Testing: NST Interpretation - Baby A: Baseline [id number] Variabilitymoderate (amplitude range 6 to 25 bpm) [...] agrees with d/c home. Padmini Newell, MSN, INSURANCE BILLING SPECIALIST, NURSING SCHEDULER-C Electronic Signatures: Pdamini Newell (INSURANCE BILLING SPECIALIST-QUALITY ASSURANCE ASSISTANT) (Signed 12-Dec-2021 21:28) Authored: Current Stage, OB Dating, Subjective Data, Objective Data, Testing, Assessment and Plan, Note Completion Ghanshyam Falcon) (Signed 12-Dec-2021 22:16) Co-Signer: Current Stage, OB Dating, Subjective Data, Objective Data, Testing, Assessment and Plan, Note Completion Last Updated: 12-Dec-2021 22:16 by Ghanshyam Falcon) Normal [facility] Discharge [id number] 022 Discharge Profile2 Discharge Orders: DNAR: Code [...] Review of Medication Reconciliation and Orders Completedby MAGALY Reviewing ProviderHalTERRY Cleary at 12-Dec-2021 21:19:15 Electronic Signatures: Padmini Newell (MAGALY-QUALITY ASSURANCE ASSISTANT) (Signed 12-Dec-2021 21:19) Authored: Discharge Orders, Triage OB, Provider FINAL REVIEW of Orders, Gold Form - Search Marketing Coordinator Summary Last Updated: 12-Dec-2021 21:19 by Padmini Newell (INSURANCE BILLING SPECIALIST-QUALITY ASSURANCE ASSISTANT) Normal [facility] GROUP B STREP SCREENon 12-12 GROUP B STREP SCREEN PATIENT: SA CHRISTEL ROY LOCATION: [facility]ILL#: [id number] : 86 AGE: SEX: F ORDERED BY: TOM BULL SOURCE: VAG-RECTAL COLLECTED: 12/12/21 00:00 ANTIBIOTICS AT MELISSA.: RECEIVED : 12/12/21 22:14 SITE: R E S U L T S GROUP B STREP SCREEN FINAL 12/15/21 12:37 NEGATIVE FOR GROUP B BETA STREP. Normal [facility] Comment on above: Performed By: #### O WHIZZER OPERATOR #### [facility] [address] [place] [address] Laboratory - Microbiology an d Antimicrobial susceptibilityon 12-12-2021 Bacteria identified Aer cx Nom (Genital specimen) [facility]-OBGYN-[facility] C [address] [place] Work Phone: Order Reconciliationon 12-12 Order Reconciliation Page 1 Discharge Reconciliation Document Reconciliation Type: Discharge requested on behalf of Padmini Newell (Advanced Practice Nurse) done by Padmini Newell (INSURANCE BILLING SPECIALIST-[facility]) Discharge - Reconciliation: 12-Dec-2021 21:19 by: Padmini Newell (INSURANCE BILLING SPECIALIST-QUALITY ASSURANCE ASSISTANT) Home Medications EnteredHOME MEDICATIONS AT DISCHARGE DateReconciliation [...] capsule cap(s) orally once a week Normal [facility] Risk Screen - OB Triageon Risk [...] Learning Preferencesverbal instruction Cultural Considerationsnone Developmental Considerationsnone Faith Considerationsnone Learning Assessment (Other Learner): Other learner availableno Depression/Suicide: Depression Screen: During the past month, have you often been bothered by feeling down, depressed or hopelessno During the past month, have you often had little interest or pleasure in doing thingsno Have you had any thoughts of harming anyone elseno [place] Suicide: Risk Screen Not Applicable/Able to Answerable to be screened In the Past Month: Have you wished you were or could go to sleep and not wake upno In the Past Month: Have you had any actual thoughts of killing yourselfno Lifetime: Have you ever done, started to do, or prepared to do anything to end your lifeno [place] Suicide Risknegative Family Violence: Abuse Screen: Are [...] Violence Last Updated: 12-Dec-2021 17:[address] (GRACIA) Normal [facility] Triage Note - OB v4on 2021 Triage Note - OB v4 Triage: General Info: Time of Arrival on [id number]-9773 17:06 Arrived Fromphysician office Acuity Level4 Chief ComplaintNRNST Weight in kg121 kilogram(s) Weight in gpx590.7 pound(s) Weight Methodactual (measured) Scale Typestanding Height in feet5 feet Height in inches1.97 inch(es) Height in cm157.4 centimeter(s) Height Methodstated BMI (kg/m2)48.84 square meter Home Meds have been Reviewed and Verified with Patient/Familyyes Info: Gravida1 Term Deliveries0 Deliveries0 Abortions0 Living Children0 Patient stated [id number] Calculation of EGA based on patient stated EDD36 Records availableyes Trimester Care Initiatedfirst Care ProviderCNM Current Risksnone Substance: Smoking Statusnever smoker Alcohol Usedenies Drug Usedenies Disposition/Disch: Dispositiondischarged from facility, home with own care Discharge/Transfer Summary Noteurgent maternal warning signs, daily movements Patient Meets Criteria for Home Blood Pressure Monitorno Admission/Observation/Dis charge/Transfer Date/[id number] 21:28 Discharged Accompanied Byspouse Discharge Modeambulatory Transportation Methodprivate car Travel History: Travel or ExposureNO travel to International locations in the past 30 days Additional Information: Information Review: Allergies have been Reviewed and Verified with Patient/Familyyes Allergy, Intolerance, Adverse Event: Allergies: No Known Allergies: Active Electronic Signatures: Johanna Lane (RN) (Signed 12-Dec-2021 17:21) Authored: General Info, Info, Substance, Travel History, Additional Information Zayda Landa) (Signed 12-Dec-2021 21:28) Authored: Disposition/Disch Last Updated: 12-Dec-2021 21:28 by Zayda Landa (RN) Normal [facility] No Panel Informationon 11-13 Never MG-OBGYN-We [...] at allQ8: No, not all allQ9: No, ikddwS86: Never No Panel Informationon 11-06 Normal [facility]-OBGYN-We [place] 2420 DO Work Phone: Please click on the link to view the study images Normal [facility] on Work Phone: OB Biophysical profile (w/o [...] EFW (oz) 14 oz EFW by: Hadlock (QBJ-ZB-DD-FL) Extended Waste Specialist 5.8 mm Head / Face / Neck [...] Electronically signed by: JANINE BOWMAN MD Normal [facility] OB Follow up or repeat scano [...] EFW (oz) 14 oz EFW by: Hadlock (MXM-KG-RW-FL) Extended Waste Specialist 5.8 mm Head / Face / Neck [...] Electronically signed by: JANINE BOWMAN MD Normal [facility] Coronavirus 2019 RNA by PCR, Symptomaticon 10-27-2021 Coronavirus 2019 RNA by PCR, Symptomatic Detected Abnormal See Below Raúl ramírez 0202 DO Work Phone: Comment on above: SOURCE: Nasal, Nasop haryngealReference Range: Not Detected.This test has received FDA Emergency Use Authorization (EUA) and has been verified by [facility]. This test is only authorized for the duration of time that circumstances exist to justify the authorization of the emergency use of in vitro diagnostic tests for the detection of SARS-CoV-2 virus and/or diagnosis of COVID-19 infection under section 564(b)(1) of the Act, 21 U.S.C. 360bbb-3(b)(1), unless the authorization is terminated or revoked sooner. [facility] is certified under CLIA-88 as qualified to perform high complexity testing. Testing is performed in the [facility] laboratory located at [address] [place] [address].SARS-CoV-2/Flu/RSV Multiplex Test: Fact sheet for providers: https://www.fda.gov/media/378415/downloadFact sheet for patients: https://www.fda.gov/media/269302/download Covid 19 Resultson 2 SARS-CoV-2 (COVID-19) RNA [...] You may also be contacted by the [facility] to see if any of your close [...] or Naproxen (Aleve) can also be used. Lqld-lkw-dvdkgyd cough and cold medicines can be used according to the instructions on the package. Some hrnk-and-cvxlmfk medicines also contain acetaminophen. Make sure you [...] water are not available, use alcohol-based hand timber robber. Avoid touching your eyes, nose, and mouth [...] 24 nae (more content not included)... Normal [facility] GLUCOSE,1 HR SCREEN, PREGon 10-04-2021 Glucose [Mass/Vol] 116 mg/dL Normal <135 [facility] Comment on above: Result Comment: Diag nostic value with glucose loading dose of 50 g. Reference values from [place] [employer]. Diabetes Care 2015;38(Suppl.1):S8-S16 Performed By: #### O WHIZZER OPERATOR #### [facility] [address] [place] [address] RUBELLA IGG ABon 10-04-2021 RUBELLA IGG AB Negative Normal [facility] Comment on above: Result Comment: INTE [...] assays. Performed By: #### T +S #### [facility] [address] [place] [address] SYPHILIS SCREENING WITH REFL EXon 10-04-2021 SYPHILIS TOTAL AB Non-Reactive Normal NONREACTIVE [facility] Comment on above: Result Comment: No s ignificant level of Treponema pallidum antibody detected. Repeat testing in 2 to 4 weeks may be considered if early infection or incubating syphilis infection is suspected. Performed By: #### T +S #### [facility] [address] [place] [address] CBC ANEMIA PANEL WITH REFLEX ,PREGNANCYon 10-03-2021 Erythrocyte distribution width (RBC) [Ratio] 14.0 % Normal 11.5 - 14.5 [facility] Comment on above: Performed By: #### T +S #### [facility] [address] [place] [address] Hematocrit (Bld) [Volume fraction] 34.7 % Low 36.0 - 46.0 [facility] Comment on above: Performed By: #### T +S #### [facility] [address] [place] [address] Hemoglobin (Bld) [Mass/Vol] 11.1 g/dL Low 12.0 - 16.0 [facility] Comment on above: Performed By: #### T +S #### [facility] [address] [place] [address] MCHC (RBC) [Mass/Vol] 32.0 g/dL Normal 32.0 - 36.0 [facility] Comment on above: Performed By: #### T +S #### [facility] [address] [place] [address] MCV (RBC) [Entitic vol] 91 fL Normal 80 - 100 [facility] Comment on above: Performed By: #### T +S #### [facility] [address] [place] [address] Platelets (Bld) [#/Vol] 279 10*3/uL Normal 150 - 450 [facility] Comment on above: Performed By: #### T +S #### [facility] [address] [place] [address] RBC 3.81 x10E12/L Low 4.00 - 5.20 [facility] Comment on above: Performed By: #### T +S #### [facility] [address] [place] [address] REFLEX ADDED, ANEMIA PANEL NONE Normal [facility] Comment on above: Performed By: #### T +S #### [facility] [address] [place] [address] WBC (Bld) [#/Vol] 11.1 10*3/uL Normal 4.4 - 11.3 [facility] Comment on above: Performed By: #### T +S #### [facility] [address] [place] [address] Glucose, 1 Hour Screen, Preg nancyon 10-03-2021 Glucose 1 Hr post 50 g glucose PO [Mass/Vol] 116 mg/dL <135 MG-OBCLAUDIOW liz ramírez 9650 DO Work Phone: Comment on above: Diagnostic value wit h glucose loading dose of 50 g. Reference values from [place] [employer]. Diabetes Care 2015;38(Suppl.1):S8-S16 Laboratory - [...] 100 [facility]-We [place] 2420 DO Work Phone: [phone] Platelets (Bld) [#/Vol] 279 10*3/uL 150 - 450 [facility] [place] 2420 DO Work Phone: RBC (Bld) [#/Vol] 3.81 {x10E12/L} below low threshold See Below [facility]-OB[facility]N-We [place] 2420 DO Work Phone: [phone] Comment on above: Reference Range: 4.0 0 - 5.20 WBC (Bld) [#/Vol] 11.1 10*3/uL 4.4 - 11.3 MG-MANUFACTURING QUALITY ENGINEER-We [place] 2420 DO Work Phone: No Panel [...] REFL EXon 10-03-2021 Lab Specimen Source Normal [facility] Comment on above: Performed By: #### T +S #### [facility] [address] [place] [address] T. pallidum IgG+IgM IA Ql (S) Non-Reactive See Below MG-OBОЛЬГАN-We stlake 2420 DO Work Phone: Comment on [...] year [facility] [place] 2420 DO Work Phone: Tobacco use status CPHS b) No [facility]N-[facility] [place] 2420 DO Work Phone: No Panel Informationon 08-29 Normal [facility]-OBGYN-We [place] 2420 DO Work Phone: OB Completed scan [...] EFW (oz) 1 oz EFW by: Hadlock (EOG-YK-DH-FL) Extended Waste Specialist 7.9 mm CM 6.5 mm 85% Nicolaides [...] Normal LVOT view: Normal 3-vessel view: Normal 9-dfunmq-pxzqsfm view: Normal Heart / Thorax Situs: situs [...] hand: Normal (more content not included)... Normal [facility] No Panel Informationon 06-30 Normal MG-OBGYN-MA [...] gestational sac with a live fetus - [place] rump length is consistent with given SLIME [...] Pexsters NT 1.80 mm Anatomy Heart: Normal Hubertus and Situs. Stomach: Visible, with correct situs. [...] Electronically signed by: FLEX HOWE MD Normal [facility] OB Repeat 1st Trimester TAon 06-30-2021 [...] gestational sac with a live fetus - [place] rump length is consistent with given SLIME [...] Pexsters NT 1.80 mm Anatomy Heart: Normal Hubertus and Situs. Stomach: Visible, with correct situs. [...] Electronically signed by: FLEX HOWE MD Normal [facility] TOBACCO SCREEN MEDICAL PL AN ONLYon 06-24-2021 TOBACCO SCREEN, URINE Negative Normal [facility] Comment on above: Result Comment: Coti nine, a metabolite of nicotine, is measured to screen for nicotine exposure. The cut-off is set at 300ng/mL to detect active exposure (smoking). This test was developed and its performance characteristics were determined by the [facility]. Performed By: #### O WHIZZER OPERATOR #### [facility] [address] [place] [address] AN ONLYon 06-23-2021 Cotinine Screen Ql (U) Negative [facility] -OBGYN-MA C [address] [place] Work Phone: Comment on above: Cotinine, a metaboli te of nicotine, is measured to screen for nicotine exposure. The cut-off is set at 300ng/mL to detect active exposure (smoking).This test was developed and its performance characteristics were determined by the [facility]. GC + CHLAMYDIA BY AMPLIFIED DETECTIONon 06-17-2021 CHLAMYDIA TRACH.,AMPLIFIED Negative Normal Negative [facility] Comment on above: Result Comment: The APTIMA Combo 2 assay is FDA-approved for Chlamydia trachomatis and Neisseria gonorrhoeae testing on female endocervical and vaginal swabs, ThinPrep liquid pap samples, male urine samples and urethral swabs. Performance characteristics for Chlamydia trachomatis and Neisseria gonorrhoeae testing on specific lgh-OTW-etonpzuk sample types (female urine samples) have been validated by [facility]. This laboratory is certified by CLIA to perform high complexity testing. Samples from all other sites are not validated for this method. Performed By: #### O WHIZZER OPERATOR #### [facility] [address] [place] [address] N.GONORRHEA,AMPLIFIED Negative Normal Negative [facility] Comment on above: Result Comment: The APTIMA Combo 2 assay is FDA-approved for Chlamydia trachomatis and Neisseria gonorrhoeae testing on female endocervical and vaginal swabs, ThinPrep liquid pap samples, male urine samples and urethral swabs. Performance characteristics for Chlamydia trachomatis and Neisseria gonorrhoeae testing on specific viw-PRD-oinuqsco sample types (female urine samples) have been validated by [facility]. This laboratory is certified by CLIA to perform high complexity testing. Samples from all other sites are not validated for this method. Performed By: #### O WHIZZER OPERATOR #### [facility] [address] [place] [address] PATH REVIEW-HGB IDENTIFICATI ONon 06-17-2021 PATH REV-HGB IDENT. R.DUMONT Normal [facility] Comment on above: Result Comment: By h er/his signature above, the Pathologist listed as making the final interpretation certifies that she/he has personally reviewed this case. Performed By: #### O WHIZZER OPERATOR #### [facility] [address] [place] [address] HEMOGLOBIN IDENTIFICATIONon 06-16-2021 HEMOGLOBIN A 97.0 % Normal [facility] Comment on above: Performed By: #### H MAGGI ####[id number] [place] [address] HEMOGLOBIN A2 2.6 % Normal [facility] Comment on above: Result Comment: HGB A2 values may be falsely elevated in the presence of HGB S. Performed By: #### H MAGGI ####[id number] [id number] HEMOGLOBIN F 0.4 % Normal [facility] Comment on above: Performed By: #### H MAGGI ####[id number] [id number] INTERPRETATION SEE COMMENT Normal [facility] Comment on above: Result Comment: Norm al Performed By: #### H MAGGI ####[id number] [place] [address] HEMOGLOBIN A1Con 06-14-2021 Glucose [Mass/Vol] 103 mg/dL Normal [facility] Comment on above: Performed By: #### O WHIZZER OPERATOR #### [facility] [address] [place] [address] HbA1c (Bld) [Mass fraction] 5.2 % Normal [facility] Comment on above: Result Comment: Diag nosis of Diabetes-Adults Non-Diabetic: < or = 5.6% Increased risk for developing diabetes: 5.7-6.4% Diagnostic of diabetes: > or = 6.5% . Monitoring of Diabetes Age (y) Therapeutic Goal (%) Adults: >18 <7.0 Pediatrics: 13-18 <7.5 7-12 <8.0 0- 6 7.5-8.5 [place] [employer]. Diabetes Care 33(S1), Mar 2009. Performed By: #### O WHIZZER OPERATOR #### [facility] [address] [place] [address] CBC ANEMIA PANEL WITH REFLEX ,PREGNANCYon 06-13-2021 Erythrocyte distribution width (RBC) [Ratio] 13.7 % Normal 11.5 - 14.5 [facility] Comment on above: Performed By: #### A NEMI ####[address] [id number] Hematocrit (Bld) [Volume fraction] 38.2 % Normal 36.0 - 46.0 [facility] Comment on above: Performed By: #### A NEMI ####[address] [id number] Hemoglobin (Bld) [Mass/Vol] 11.8 g/dL Low 12.0 - 16.0 [facility] Comment on above: Performed By: #### A NEMI ####[address] [id number] MCHC (RBC) [Mass/Vol] 30.9 g/dL Low 32.0 - 36.0 [facility] Comment on above: Performed By: #### A NEMI ####[address] [id number] MCV (RBC) [Entitic vol] 88 fL Normal 80 - 100 [facility] Comment on above: Performed By: #### A NEMI ####[address] [id number] Platelets (Bld) [#/Vol] 347 10*3/uL Normal 150 - 450 [facility] Comment on above: Performed By: #### A NEMI ####[address] [id number] RBC 4.33 x10E12/L Normal 4.00 - 5.20 [facility] Comment on above: Performed By: #### A NEMI ####[address] [id number] REFLEX ADDED, ANEMIA PANEL NONE Normal [facility] Comment on above: Performed By: #### A NEMI ####[address] [place] [id number] WBC (Bld) [#/Vol] 10.0 10*3/uL Normal 4.4 - 11.3 [facility] Comment on above: Performed By: #### A NEMI ####[facility] [place], [place] [id number] Cult, Urineon 06-13-2021 Bacteria identified Cx Nom (U) [facility] -Romeo [place] Work Phone: GC + CHLAMYDIA BY AMPLIFIED DETECTIONon 06-13-2021 Lab Specimen Source Thin Prep-Endocervical Normal [facility] Comment on above: Performed By: #### O WHIZZER OPERATOR #### [facility] [address] [place] [address] GC + Chlamydia By Amplified Detectionon 06-13-2021 [...] trachomatis and Neisseria gonorrhoeae testing on specific kzh-SBY-xmthnkto sample types (female urine samples) have been validated by [facility]. This laboratory is certified by CLIA to [...] trachomatis and Neisseria gonorrhoeae testing on specific ohf-JAG-fhggztqm sample types (female urine samples) have been validated by [facility]. This laboratory is certified by CLIA to perform high complexity testing. Samples from all other sites are not validated for this method. HEPATITIS B SURFACE AGon HEP.B SURFACE AG Non-Reactive Normal NONREACTIVE [facility] Comment on above: Result Comment: Biot in interference may cause falsely decreased results. Patients taking a Biotin dose of up to 5 mg/day should refrain from taking Biotin for 24 hours before sample collection. Providers may contact their local laboratory for further information. Performed By: #### T +S #### [facility] [address] [place] [address] HEPATITIS C ABon 06-13-2021 HEPATITIS C AB Non-Reactive Normal NONREACTIVE [facility] Comment on above: Result Comment: Resu lts from patients taking biotin supplements or receiving high-dose biotin therapy should be interpreted with caution due to possible interference with this test. Providers may contact their local laboratory for further information. Performed By: #### H CVAB ####[id number] [place] [address] HIV 1/2 ANTIGEN/ANTIBODY SCR EEN WITH REFLEX TO CONFIRMATIONon 06-13-2021 HIV 1/2 AG/AB SCREEN Non-Reactive Normal NONREACTIVE [facility] Comment on above: Result Comment: HIV [...] (viral load). Performed By: #### H IV ####[id number] [place] [address] HIV 1+2 Ab Qn (S) Non-Reactive See Below Infinio-ERNoRmeo [place] Work Phone: Comment on above: SOURCE: [...] Hemoglobin A1Con 06-13-2021 Glucose [Mass/Vol] 103 mg/dL [place] [employer] Work Phone: HbA1c (Bld) [Mass fraction] 5.2 % [employer] Work Phone: Comment on above: Diagnosis of Diabete s-Adults Non-Diabetic: < or = 5.6% Increased risk for developing diabetes: 5.7-6.4% Diagnostic of diabetes: > or = 6.5%. Monitoring of Diabetes Age (y) Therapeutic Goal (%) Adults: >18 <7.0 Pediatrics: 13-18 <7.5 7-12 <8.0 0- 6 7.5-8.5 [place] [employer]. Diabetes Care 33(S1), Mar 2009. Hepatitis B Surface Antigeno n 06-13-2021 Hepatitis B Surface Antigen Non-Reactive See Below [employer] Work Phone: Comment on above: SOURCE: Reference [...] a) No falls within the last year MG-OBGYN-OfferSavvyke 2420 DO Work Phone: Last menstrual period start date 29Mar2021 [facility]-OBGYN-We [place]lake 2420 DO Work Phone: Tobacco use status CPHS b) No [facility]-We [place] 2420 DO Work Phone: Laboratory - Blood bankon ABO group Nom (Bld) A [employer] Merchant Work Phone: Blood group antibody screen Ql Negative [employer] Work Phone: Rh immune globulin screen (Bld) [Interp] Positive [employer] celena Charles Yara Work Phone: Laboratory - Cytologyon Cytology report Cyto stain.thin prep Doc (Cvx/Vag) Date of Procedure: 06/13/2021 Pathologist: [facility], Cytology Date Reported: 06/24/2021 Date Received: 06/13/2021 Submitting Physician: TOM BULL CNM FINAL CYTOL InfinioCHEYENNE C [address] [place] Work Phone: Laboratory - Hematology and Cell countson 06-13-2021 Erythrocyte distribution width (RBC) [Ratio] 13.7 % See Below ParAccelRomeo Warren Work Phone: Comment on above: Reference Range: 11. 5 - 14.5 Hematocrit (Bld) [Volume fraction] 38.2 % See Below [facility] Work Phone: Comment on above: Reference Range: 36. 0 - 46.0 Hemoglobin (Bld) [Mass/Vol] 11.8 g/dL below low threshold See Below [facility] Work Phone: Comment on above: Reference Range: 12. 0 - 16.0 MCHC (RBC) [Mass/Vol] 30.9 g/dL below low threshold See Below [facility] Work Phone: Comment on above: Reference Range: 32. 0 - 36.0 MCV (RBC) [Entitic vol] 88 fL 80 - 100 [facility] Work Phone: Platelets (Bld) [#/Vol] 347 10*3/uL 150 - 450 [facility] Work Phone: RBC (Bld) [#/Vol] 4.33 {x10E12/L} See Below [facility] Work Phone: Comment on above: Reference Range: 4.0 0 - 5.20 WBC (Bld) [#/Vol] 10.0 10*3/uL 4.4 - 11.3 [facility] Work Phone: No Panel Informationon 06-13 NONE [facility] [facility] Work Phone: SEE COMMENT [facility] [address] [place] Work Phone: Comment on above: Normal 2.6 % [facility] [address] [place] Work Phone: Comment on above: HGB A2 values may be falsely elevated in the presence of HGB S. 0.4 % [facility] [place] Work Phone: 97.0 % [facility] [place] Work Phone: Never [facility] [place] 2420 DO Work Phone: [phone] Not depressed [facility] [place] 2420 DO Work Phone: 4 1 [facility] [place] 2420 DO Work Phone: [phone] Comment on above: Q1: As much as I alw ays couldQ2: As much as I ever didQ3: Not very oftenQ4: Yes, sometimesQ5: No, not muchQ6: No, I have been coping as well as everQ7: No, not at allQ8: No, not all allQ9: No, [id number]: Never Path Review-HGB Identificati onon 06-13-2021 Path Review-HGB Identification DESTINY [facility] [address] [place] Work Phone: Comment on above: By her/his signature above, the Pathologist listed as making the final interpretation certifies that she/he has personally reviewed this case. RUBELLA IGG ABon 06-13-2021 RUBELLA IGG AB Equivocal Normal [facility] Comment on above: Result Comment: INTE [...] in serological assays. Performed By: #### O WHIZZER OPERATOR #### [facility] [id number] [place] [address] Rubella IgG Antibodyon 06-13 Rubella virus IgG IA Ql Equivocal [facility] [facility] Work Phone: Comment on above: INTERPRETATIVE COMME [...] 06-13-2021 SYPHILIS TOTAL AB Non-Reactive Normal NONREACTIVE [facility] Comment on above: Result Comment: No s ignificant level of Treponema pallidum antibody detected. Repeat testing in 2 to 4 weeks may be considered if early infection or incubating syphilis infection is suspected. Performed By: #### S YPHR #### [facility] [id number] [place], [place] [id number] Lab Specimen Source Normal [facility] Comment on above: Performed By: #### S YPHR #### [facility] [address] [place], [place] [id number] Performed By: #### H IV ####[id number] [place] [address] Performed By: #### H CVAB ####[id number] [place] [address] Performed By: #### T +S #### [facility] [address] [place] [address] T. pallidum IgG+IgM IA Ql (S) Non-Reactive See Below [facility] [facility] Work Phone: Comment on above: SOURCE: Reference Ra nge: NONREACTIVENo significant level of Treponema pallidum antibody detected. Repeat testing in 2 to 4 weeks may be considered if early infection or incubating syphilis infection is suspected. TYPE + SCREENon 06-13-2021 ABO TYPE A Normal [facility] Comment on above: Performed By: #### T +S #### [facility] [address] [place] [address] RH TYPE Positive Normal [facility] Comment on above: Performed By: #### T +S #### [facility] [address] [place] [address] URINE CULTURE,BACTERIALon URINE CULTURE,BACTERIAL PATIENT: SHU ROY LOCATION: [facility] [place]ILL#: [id number] : 86 AGE: SEX: F ORDERED BY: TOM BULL SOURCE: URINE COLLECTED: 06/13/21 00:00 ANTIBIOTICS AT MELISSA.: RECEIVED : 06/13/21 16:41 SITE: Unspecified R E S U L T S URINE CULTURE,BACTERIAL FINAL 06/14/21 10:39 NO SIGNIFICANT GROWTH. Normal [facility] Comment on above: Performed By: #### O WHIZZER OPERATOR #### [facility] [address] [place] [address] No Panel Informationon 06-04 Normal [facility] C [...] Electronically signed by: JANINE BOWMAN MD Normal [facility] HCG,BETA-QUANTITATIVEon 04-09 HCG,BETA-QUANTITATIVE 79 mIU/mL Abnormal [facility] Comment on above: Result Comment: Low- [...] HCG measurement is performed using the Elias [place] Access Immunoassay which detects intact HCG and free beta HCG subunit. This test is not indicated for use as a tumor marker. HCG testing is performed using a different test methodology at [facility] than other [facility]. Direct result comparison should only be made within the same method. REF VALUES NON FEMALE <5 MALES <5 Performed By: #### H CGQU ####[facility] [place], [place] [id number] Office Visit (Family Ying terrell)on 05-01-2021 Follow-up visit Diagnoses/Problems Missed menses (626.4) [...] Beta Quantitative; Status:Active - Retrospective Authorization; Requested for:01May2021; PCOS (polycystic ovarian syndrome) Start: metFORMIN HCl [...] a) No falls within the last year -[facility] Work Phone: Tobacco use status CPHS b) No -[facility] Work Phone: Blood Pressure Cuff Sizeon 1 Blood Pressure Cuff Size Adult -[facility] Work Phone: Tobacco Screening.on 021 Last menstrual period start date [id number] -[facility] Work Phone: Tobacco Screening. b) No -[facility] Work Phone: Tobacco Screening.on 021 Last menstrual period start date [id number] -[facility] Work Phone: Tobacco Screening. b) No -[facility] Work Phone: Estradiol, Serumon 1 E2 [Mass/Vol] 169 pg/mL [facility] Work Phone: Comment on above: Estradiol measuremen t is performed using the Elias Hyperlite Mountain Gear Access Sensitive Estradiol Immunoassay. Estradiol testing is performed using a different test methodology at [facility] than other [facility]. Direct result comparison should only be made within the same method.REF VALUESEARLY FOLLICULAR 22-115MID FOLLICULAR 25-115OVULATORY PEAK 32-517MID LUTEAL 37-246POSTMENOPAUSE <15- 25MALE <15- 32 Luteinizing Hormone, Serumon 03-13-2020 Lutropin Qn 25.2 {IU/L} [facility] Work Phone: Comment on above: Luteinizing Hormone [LH] is performed using the Elias Hyperlite Mountain Gear Access Immunoassay. LH testing is performed using a different test methodology at [facility] than other [facility]. Direct result comparison should only be made within the same method.REF VALUESFOLLICULAR PHASE 1.5-10.0MID-CYCLE 13.0-72.0LUTEAL PHASE 0.5-13.0MENOPAUSE 15.0-65.0PREPUBERTY 0- 3.0CHILDREN 0- 6.0ADULT MALE 1.0- 9.0 Otheron 01-16-2020 Please click on the link to view the study images Normal [facility] Work Phone: Lipid Panelon 12-15-2019 Cholesterol [Mass/Vol] 148 mg/dL 0 - 199 [facility] Work Phone: Comment on [...] Work Phone: PROGESTERONEon 06-30-2019 PROGESTERONE <0.3 Normal [facility] Comment on above: Result Comment: Note new reference range as of 05/09/2019. REF VALUES MALE <0.3- 1.2 FOLLICULAR PHASE <0.3- 1.4 LUTEAL PHASE 3.3-25.6 MID-LUTEAL PHASE 4.4-28.0 POSTMENOPAUSAL <0.3- 0.7 FEMALES: 1ST TRIMESTER 11.2- 90.0 2ND TRIMESTER 25.6- 89.4 3RD TRIMESTER 48.4-422.5 . Patients receiving DHEA-S supplements may show false elevation of progesterone for results near 1.0 ng/mL. Contact laboratory at [phone] if alternative testing is needed. Performed By: #### P YARELI #### [facility] [address] [place] [address] Progesterone, Serumon 2019 Progesterone [Mass/Vol] ng/mL [facility] Work Phone: Comment on above: Note new reference r lula as of 05/09/2019.REF VALUESMALE <0.3- 1.2 FOLLICULAR PHASE <0.3- 1.4 LUTEAL PHASE 3.3-25.6 MID-LUTEAL PHASE 4.4-28.0POSTMENOPAUSAL <0.3- 0.7 FEMALES: 1ST TRIMESTER 11.2- 90.0 2ND TRIMESTER 25.6- 89.4 3RD TRIMESTER 48.4-422.5 .Patients receiving DHEA-S supplements may show false elevation ofprogesterone for results near 1.0 ng/mL. Contact laboratory [phone] if alternative testing is needed. Vital Signs Date Time Vital Sign Value Performing Clinician Facility 12-13-2024 11:55-0400 Body height 157.[address] Judie Bella MD Work Phone: [facility] 12-13-2024 11:55-0400 Body mass index (BMI) [Ratio] 50.3 kg/m2 Dr. Judie Bella MD Work Phone: [facility] 12-13-2024 11:55-0400 Body weight 124.[address] Judie Bella MD Work Phone: [facility] 12-13-2024 11:48-0400 Body temperature 98.5 [degF] Dr. Judie Bella MD Work Phone: [facility] 12-13-2024 11:48-0400 Diastolic blood pressure 86 mm[Hg] Dr. Judie Bella MD Work Phone: [facility] 12-13-2024 11:48-0400 Heart rate 96 /min Dr. Judie Bella MD Work Phone: [facility] 12-13-2024 11:48-0400 Respiratory rate 18 /min Dr. Judie Bella MD Work Phone: [facility] 12-13-2024 11:48-0400 SaO2% (BldA) [Mass fraction] 98 % Dr. Judie Bella MD Work Phone: [facility] 12-13-2024 11:48-0400 Systolic blood pressure 127 mm[Hg] Dr. Judie Bella MD Work Phone: [facility] 12-13-2024 09:21-0400 Body height 157.[address] Judie Bella MD Work Phone: [facility] 12-13-2024 09:21-0400 Body mass index (BMI) [Ratio] 50.5 kg/m2 Dr. Judie Bella MD Work Phone: [facility] 12-13-2024 09:21-0400 Body weight 125.[address] Judie Bella MD Work Phone: [facility] 12-13-2024 09:21-0400 Diastolic blood pressure 85 mm[Hg] Dr. Judie Bella MD Work Phone: [facility] 12-13-2024 09:21-0400 Systolic blood pressure 126 mm[Hg] Dr. Judie Bella MD Work Phone: [facility] 12-08-2024 09:44-0400 Body weight 125.[address] Judie Bella MD Work Phone: [facility] 12-08-2024 09:44-0400 Diastolic blood pressure 79 mm[Hg] Dr. Judie Bella MD Work Phone: [facility] 12-08-2024 09:44-0400 Systolic blood pressure 123 mm[Hg] Dr. Judie Bella MD Work Phone: [facility] 12-08-2024 08:49-0400 Body height 157.[address] Judie Bella MD Work Phone: [facility] 11-30-2024 09:44-0400 Body height 157.[address] Judie Bella MD Work Phone: [facility] 11-30-2024 09:44-0400 Body mass index (BMI) [Ratio] 50.5 kg/m2 Dr. Judie Bella MD Work Phone: [facility] 11-30-2024 09:42-0400 Body mass index (BMI) [Ratio] 50.7 kg/m2 Dr. Judie Bella MD Work Phone: [facility] 11-30-2024 09:42-0400 Body weight 125.[address] Judie Bella MD Work Phone: [facility] 11-30-2024 09:42-0400 Diastolic blood pressure 84 mm[Hg] Dr. Judie Bella MD Work Phone: [facility] 11-30-2024 09:42-0400 Systolic blood pressure 129 mm[Hg] Dr. Judie Bella MD Work Phone: [facility] 11-23-2024 09:22-0400 Body height 157.[address] Judie Bella MD Work Phone: [facility] 11-23-2024 09:22-0400 Body mass index (BMI) [Ratio] 50.3 kg/m2 Dr. Judie Bella MD Work Phone: [facility] 11-23-2024 09:22-0400 Body weight 124.[address] Judie Bella MD Work Phone: [facility] 11-23-2024 09:22-0400 Diastolic blood pressure 75 mm[Hg] Dr. Judie Bella MD Work Phone: [facility] 11-23-2024 09:22-0400 Systolic blood pressure 114 mm[Hg] Dr. Judie Bella MD Work Phone: [facility] 10-30-2024 13:49-0400 Body height 157.[address] Tawana Timmons MD Work Phone: [facility] 10-30-2024 13:49-0400 Body mass index (BMI) [Ratio] 49.1 kg/m2 Dr. Tawana Timmons MD Work Phone: [facility] 10-30-2024 13:49-0400 Body weight 121.[address] Tawana Timmons MD Work Phone: [facility] 10-30-2024 13:49-0400 Diastolic blood pressure 83 mm[Hg] Dr. Tawana Timmons MD Work Phone: [facility] 10-30-2024 13:49-0400 Systolic blood pressure 120 mm[Hg] Dr. Tawana Timmons MD Work Phone: [facility] 10-02-2024 09:42-0400 Body height 157.48 cm Carmen Perdomo CNM Work Phone: [facility] 10-02-2024 09:42-0400 Body mass index (BMI) [Ratio] 48.5 kg/m2 Carmen Perdomo CNM Work Phone: [facility] 10-02-2024 09:42-0400 Body weight 120.37 kg Carmen Perdomo CNM Work Phone: [facility] 10-02-2024 09:42-0400 Diastolic blood pressure 83 mm[Hg] Carmen Perdomo CNM Work Phone: [facility] 10-02-2024 09:42-0400 Systolic blood pressure 124 mm[Hg] Carmen Perdomo CNM Work Phone: [facility] 09-01-2024 14:59-0400 Body height 157.48 cm Carmen Perdomo CNM Work Phone: [facility] 09-01-2024 14:57-0400 Body mass index (BMI) [Ratio] 47.4 kg/m2 Carmen Perdomo CNM Work Phone: [facility] 09-01-2024 14:57-0400 Body weight 117.53 kg Carmen Perdomo CNM Work Phone: [facility] 09-01-2024 14:57-0400 Diastolic blood pressure 86 mm[Hg] Carmen Perdomo CNM Work Phone: [facility] 09-01-2024 14:57-0400 Systolic blood pressure 119 mm[Hg] Carmen Perdomo CNM Work Phone: [facility] 08-02-2024 11:04-0400 Body height 157.48 cm Carmen Perdomo CNM Work Phone: [facility] 08-02-2024 11:02-0400 Body mass index (BMI) [Ratio] 48.6 kg/m2 Carmen Perdomo CNM Work Phone: [facility] 08-02-2024 11:02-0400 Body weight 120.65 kg Carmen Perdomo CNM Work Phone: [facility] 08-02-2024 11:02-0400 Diastolic blood pressure 75 mm[Hg] Carmen Perdomo CNM Work Phone: [facility] 08-02-2024 11:02-0400 Systolic blood pressure 118 mm[Hg] Carmen Perdomo CNM Work Phone: [facility] 07-06-2024 15:06-0400 Body height 157.48 cm Carmen Perdomo CNM Work Phone: [facility] 07-06-2024 15:06-0400 Body mass index (BMI) [Ratio] 46 kg/m2 Carmen Perdomo CNM Work Phone: [facility] 07-06-2024 15:06-0400 Body weight 114.07 kg Carmen Perdomo CNM Work Phone: [facility] 07-06-2024 15:06-0400 Diastolic blood pressure 85 mm[Hg] Carmen Perdomo CNM Work Phone: [facility] 07-06-2024 15:06-0400 Systolic blood pressure 123 mm[Hg] Carmen Perdomo CNM Work Phone: [facility] 06-09-2024 13:11-0400 Body height 157.48 cm Carmen Perdomo CNM Work Phone: [facility] 06-09-2024 13:11-0400 Body mass index (BMI) [Ratio] 46.5 kg/m2 Carmen Perdomo CNM Work Phone: [facility] 06-09-2024 13:11-0400 Body weight 115.43 kg Carmen Perdomo CNM Work Phone: [facility] 06-09-2024 13:11-0400 Diastolic blood pressure 80 mm[Hg] Carmen Perdomo CNM Work Phone: [facility] 06-09-2024 13:11-0400 Systolic blood pressure 125 mm[Hg] Carmen Perdomo CNM Work Phone: [facility] 05-03-2024 12:07-0500 Body height 157.48 cm Carmen Perdomo CNM Work Phone: [facility] 05-03-2024 12:05-0500 Body mass index (BMI) [Ratio] 45.3 kg/m2 Carmen Perdomo CNM Work Phone: [facility] 05-03-2024 12:05-0500 Body weight 112.49 kg Carmen Perdomo CNM Work Phone: [facility] 05-03-2024 12:05-0500 Diastolic blood pressure 66 mm[Hg] Carmen Perdomo CNM Work Phone: [facility] 05-03-2024 12:05-0500 Systolic blood pressure 99 mm[Hg] Carmen Perdomo CNM Work Phone: [facility] 08-05-2023 22:09-0400 Diastolic Blood Pressure Non-Invasive 78 mm[Hg] JOSEPH DURESKA DO [facility] 08-05-2023 22:09-0400 Heart rate 96 /min JOSEPH DURESKA DO [facility] 08-05-2023 22:09-0400 Respiratory rate 16 /min JOSEPH DURESKA DO [facility] 08-05-2023 22:09-0400 Systolic Blood Pressure Non-Invasive 150 mm[Hg] JOSEPH DURESKA DO [facility] 08-05-2023 17:08-0400 Diastolic Blood Pressure Non-Invasive 108 mm[Hg] JOSEPH DURESKA DO [facility] 08-05-2023 17:08-0400 Heart rate 98 /min JOSEPH DURESKA DO [facility] 08-05-2023 17:08-0400 Respiratory rate 16 /min JOSEPH DURESKA DO [facility] 08-05-2023 17:08-0400 Systolic Blood Pressure Non-Invasive 154 mm[Hg] JOSEPH DURESKA DO [facility] 08-05-2023 15:50-0400 Body temperature 98.6 [degF] JOSEPH DURESKA DO [facility] 08-05-2023 15:50-0400 Body weight 100 kg JOSEPH DURESKA DO [facility] 08-05-2023 15:50-0400 Diastolic Blood Pressure Non-Invasive 82 mm[Hg] JOSEPH DEL CID DO [facility] 08-05-2023 15:50-0400 Heart rate 102 /min JOSEPH DEL CID DO [facility] 08-05-2023 15:50-0400 Respiratory rate 20 /min JOSEPH DEL CID DO [facility] 08-05-2023 15:50-0400 Systolic Blood Pressure Non-Invasive 170 mm[Hg] JOSEPH DEL CID DO [facility] 02-04-2022 14:40-0500 Body height 157.48 cm Celio Zhou Work Phone: IX-ESZKM-Kfixolrw 2420 DO Work Phone: 02-04-2022 14:40-0500 Body mass index (BMI) [Ratio] 44.26 kg/m2 Celio Zhou Work Phone: KG-TOHRK-Wekrnmol 2420 DO Work Phone: 02-04-2022 14:40-0500 Body surface area Derived from formula 2.07 m2 Celio Zhou Work Phone: VS-XISPF-Wakfekxz 2420 DO Work Phone: 02-04-2022 14:40-0500 Body weight 109.77 kg Celio Zhou Work Phone: YK-CFECC-Alcqhxwr 2420 DO Work Phone: 02-04-2022 14:40-0500 Diastolic blood pressure 84 mm[Hg] Celio Zhou Work Phone: EQ-NAYZO-Rzfwwqof 2420 DO Work Phone: 02-04-2022 14:40-0500 Systolic blood pressure 120 mm[Hg] Celio Zhou Work Phone: PY-LOAJG-Veqowcyt 2420 DO Work Phone: 02-04-2022 14:40-0500 0 1 Celio Zhou Work Phone: GC-XWHXO-Qneyxaxl 2420 DO Work Phone: Comment on above: [facility] 01-19-2022 14:09-0500 Diastolic blood pressure 83 mm[Hg] Celio Zhou Work Phone: SX-EITMT-XHI [address] [place] Work Phone: 01-19-2022 14:09-0500 Systolic blood pressure 128 mm[Hg] Celio Zhou Work Phone: HB-OVSZB-XUB [address] [place] Work Phone: 01-15-2022 15:07-0500 Body height 157.48 cm Celio Zhou Work Phone: WS-IIQLB-Fkjtmxo 2nd Fl Work Phone: 01-15-2022 15:07-0500 Diastolic blood pressure 88 mm[Hg] Celio Zhou Work Phone: GJ-FLZBP-Vgabmbl 2nd Fl Work Phone: 01-15-2022 15:07-0500 Systolic blood pressure 128 mm[Hg] Celio Zhou Work Phone: OT-HIGXZ-Shzltyc 2nd Fl Work Phone: 01-11-2022 14:24-0500 Diastolic blood pressure 97 mm[Hg] [facility] Work Phone: 01-11-2022 14:24-0500 Heart rate 85 /min [facility] Work Phone: 01-11-2022 14:24-0500 Systolic blood pressure 131 mm[Hg] [facility] Work Phone: 01-11-2022 12:46-0500 Body height 157.48 cm [facility] Work Phone: 01-11-2022 12:46-0500 Body mass index (BMI) [Ratio] 45.8 kg/m2 [facility] Work Phone: 01-11-2022 12:46-0500 Body weight 113.85 kg [facility] Work Phone: 01-07-2022 13:18-0400 Body temperature 97.88 [degF] Celio Jorgeolas Other Phone: [facility] 01-07-2022 13:18-0400 Diastolic blood pressure 80 mm[Hg] Celio Jorgeolas Other Phone: [facility] 01-07-2022 13:18-0400 Heart rate 96 /min Celio Jorgeolas Other Phone: [facility] 01-07-2022 13:18-0400 Respiratory rate 20 /min Celio Jorgeolas Other Phone: [facility] 01-07-2022 13:18-0400 SaO2% (BldA) [Mass fraction] 97 % Celio Jorgeolas Other Phone: [facility] 01-07-2022 13:18-0400 Systolic blood pressure 123 mm[Hg] Celio Jorgeolas Other Phone: [facility] 12-31-2021 14:39-0400 Body height 157.48 cm Celio Hankins Escolas Work Phone: PJ-GFNTR-ZRG [address] [place] Work Phone: 12-31-2021 14:39-0400 Body mass index (BMI) [Ratio] 49.02 kg/m2 Celio Hankins Escolas Work Phone: DR-IGNEW-VJW 1200 [place] Work Phone: 12-31-2021 14:39-0400 Body surface area Derived from formula 2.16 m2 Celio Zhou Work Phone: VB-ARSNR-QSG 1200 [place] Work Phone: 12-31-2021 14:39-0400 Body weight 121.56 kg Celio Zhou Work Phone: VA-SMAAV-DNQ [address] [place] Work Phone: 12-31-2021 14:39-0400 Diastolic blood pressure 80 mm[Hg] Celio Zhou Work Phone: OZ-KQLIB-IRF 1200 [place] Work Phone: 12-31-2021 14:39-0400 Systolic blood pressure 124 mm[Hg] Celio Zhou Work Phone: WW-DHEDP-LFG 1200 [place] Work Phone: 12-24-2021 15:32-0400 Body height 157.48 cm Celio Zhou Work Phone: XB-XQSQT-Sanofqqa 2420 DO Work Phone: 12-24-2021 15:32-0400 Body mass index (BMI) [Ratio] 48.84 kg/m2 Celio Zhou Work Phone: LZ-IFGAF-Cmlbzjpf 2420 DO Work Phone: 12-24-2021 15:32-0400 Body surface area Derived from formula 2.16 m2 Celio Zhou Work Phone: KY-NILPB-Ggyrzhdg 2420 DO Work Phone: 12-24-2021 15:32-0400 Body weight 121.11 kg Celio Zhou Work Phone: ZD-HAPRB-Rxottkss 2420 DO Work Phone: 12-24-2021 15:32-0400 Diastolic blood pressure 68 mm[Hg] Celio Zhou Work Phone: UQ-YECVM-Pgenulqx 2420 DO Work Phone: 12-24-2021 15:32-0400 Systolic blood pressure 128 mm[Hg] Celio Zhou Work Phone: ZK-QYUDZ-Pmhrkyho 2420 DO Work Phone: 12-17-2021 13:52-0400 Body height 157.48 cm Celio Zhou Work Phone: YO-DPAWQ-TKL [address] [place] Work Phone: 12-17-2021 13:52-0400 Body mass index (BMI) [Ratio] 48.93 kg/m2 Celio Zhou Work Phone: HM-SPOWF-OOJ 1200 [place] Work Phone: 12-17-2021 13:52-0400 Body surface area Derived from formula 2.16 m2 Celio Zhou Work Phone: DR-ETDGL-ILE 1200 [place] Work Phone: 12-17-2021 13:52-0400 Body weight 121.34 kg Celio Zhou Work Phone: WG-FUHLK-IJK [address] [place] Work Phone: 12-17-2021 13:52-0400 Diastolic blood pressure 80 mm[Hg] Celio Zhou Work Phone: PF-RGTZX-HLI [address] [place] Work Phone: 12-17-2021 13:52-0400 Systolic blood pressure 110 mm[Hg] Celio Zhou Work Phone: DS-WHVGE-JDS 1200 [place] Work Phone: 12-12-2021 15:39-0400 Body height 157.48 cm Celio Zhou Work Phone: RY-KYTUN-ERA [address] [place] Work Phone: 12-12-2021 15:39-0400 Body mass index (BMI) [Ratio] 48.65 kg/m2 Celio Ledesmas Work Phone: XJ-BSXNN-ATC 1200 [place] Work Phone: 12-12-2021 15:39-0400 Body surface area Derived from formula 2.16 m2 Celio Ledesmas Work Phone: VF-WYQLR-VCO [address] [place] Work Phone: 12-12-2021 15:39-0400 Body weight 120.66 kg Celio Ledesmas Work Phone: AY-CVOPZ-QOX 1200 [place] Work Phone: 12-12-2021 15:39-0400 Diastolic blood pressure 72 mm[Hg] Celio Zhou Work Phone: TF-QAPUA-FZQ 1200 [place] Work Phone: 12-12-2021 15:39-0400 Systolic blood pressure 112 mm[Hg] Celio LedesmaTaigen Work Phone: QO-EGAGK-RUS [address] [place] Work Phone: 10-03-2021 14:50-0400 Body height 157.48 cm Celio Zhou Work Phone: IT-VZBOP-SBS 1200 [place] Work Phone: 10-03-2021 14:50-0400 Body mass index (BMI) [Ratio] 46.46 kg/m2 Celio Ledesmas Work Phone: XP-NIOHH-JHU [address] [place] Work Phone: 10-03-2021 14:50-0400 Body surface area Derived from formula 2.12 m2 Celio Ledesmas Work Phone: DZ-KERBO-SXZ 1200 [place] Work Phone: 10-03-2021 14:50-0400 Body weight 115.21 kg Celio Ledesmas Work Phone: ZX-JXHYG-SVR [address] [place] Work Phone: 10-03-2021 14:50-0400 Diastolic blood pressure 70 mm[Hg] Celio Zhou Work Phone: AH-OCNFM-YTZ [address] [place] Work Phone: 10-03-2021 14:50-0400 Systolic blood pressure 118 mm[Hg] Celio Zhou Work Phone: XK-FVVLU-QON 1200 [place] Work Phone: 09-11-2021 11:20-0400 Body height 157.48 cm Celio Zhou Work Phone: QL-OWKTR-Nhbzuftk 2420 DO Work Phone: 09-11-2021 11:20-0400 Body mass index (BMI) [Ratio] 44.81 kg/m2 Celio Zhou Work Phone: NL-SHZCO-Apbwpizu 2420 DO Work Phone: 09-11-2021 11:20-0400 Body surface area Derived from formula 2.08 m2 Celio Zhou Work Phone: SJ-JJXHL-Qpnomqip 2420 DO Work Phone: 09-11-2021 11:20-0400 Body weight 111.13 kg Celio Zhou Work Phone: XP-HTCUF-Cbntoaum 2420 DO Work Phone: 09-11-2021 11:20-0400 Diastolic blood pressure 70 mm[Hg] Celio Zhou Work Phone: MU-JSOYK-Rjspeubh 2420 DO Work Phone: 09-11-2021 11:20-0400 Systolic blood pressure 110 mm[Hg] Celio Zhou Work Phone: ND-IKZXA-Mvpiihkw 2420 DO Work Phone: 09-11-2021 11:20-0400 0 1 Celio Zhou Work Phone: GI-HTOYO-Tsujpyxg 2420 DO Work Phone: Comment on above: [facility] 08-07-2021 11:11-0400 Body height 157.48 cm Celio Zhou Work Phone: GU-QQHMC-Wwtwmxkm 2420 DO Work Phone: 08-07-2021 11:11-0400 Body mass index (BMI) [Ratio] 43.71 kg/m2 Celio Zhou Work Phone: SA-HNTRV-Jshkcilw 2420 DO Work Phone: 08-07-2021 11:11-0400 Body surface area Derived from formula 2.06 m2 Celio Zhou Work Phone: ZL-PWGYW-Qajkgdbi 2420 DO Work Phone: 08-07-2021 11:11-0400 Body weight 108.41 kg Celio Zhou Work Phone: EM-NNBLN-Zxitxodk 2420 DO Work Phone: 08-07-2021 11:11-0400 Diastolic blood pressure 64 mm[Hg] Celio Zhou Work Phone: FX-IJUND-Nofohzlz 2420 DO Work Phone: 08-07-2021 11:11-0400 Systolic blood pressure 116 mm[Hg] Celio Zhou Work Phone: YO-KJCTV-Jqfovzze 2420 DO Work Phone: 07-11-2021 16:14-0400 Body height 157.48 cm Celio Zhou Work Phone: YD-JKJSS-Lyqkrylm 2420 DO Work Phone: 07-11-2021 16:14-0400 Body mass index (BMI) [Ratio] 43.53 kg/m2 Celio Zhou Work Phone: JM-GLZVK-Jaxzidnn 2420 DO Work Phone: 07-11-2021 16:14-0400 Body surface area Derived from formula 2.06 m2 Celio Zhou Work Phone: RH-PMGZX-Uhvbxugx 2420 DO Work Phone: 07-11-2021 16:14-0400 Body weight 107.96 kg Celio Zhou Work Phone: DA-XVIZE-Zyputjiq 2420 DO Work Phone: 07-11-2021 16:14-0400 Diastolic blood pressure 70 mm[Hg] Celio Zhou Work Phone: ZJ-SVLRB-Wsgncyvq 2420 DO Work Phone: 07-11-2021 16:14-0400 Systolic blood pressure 120 mm[Hg] Celio Zhou Work Phone: XT-UEMEK-Oamfuhik 2420 DO Work Phone: 06-13-2021 08:39-0400 Body height 157.48 cm Celio Zhou Work Phone: ZI-QJZDU-Fwjxylij 2420 DO Work Phone: 06-13-2021 08:39-0400 Body mass index (BMI) [Ratio] 43.9 kg/m2 Celio Zhou Work Phone: IU-MIJBX-Xzacdnpr 2420 DO Work Phone: 06-13-2021 08:39-0400 Body surface area Derived from formula 2.07 m2 Celio Zhou Work Phone: TI-TSXJZ-Dsarobxq 2420 DO Work Phone: 06-13-2021 08:39-0400 Body weight 108.86 kg Celio W Escolas Work Phone: CN-ZQINW-Gtdvgdfh 2420 DO Work Phone: 06-13-2021 08:39-0400 Diastolic blood pressure 64 mm[Hg] Celio Zhou Work Phone: KI-MJMZT-Cdjsuhxt 2420 DO Work Phone: 06-13-2021 08:39-0400 Systolic blood pressure 118 mm[Hg] Celio Zhou Work Phone: QX-EIRQD-Tnrcshww 2420 DO Work Phone: 06-13-2021 08:39-0400 0 1 Celio Zhou Work Phone: MU-BXLTN-Royytvmd 2424 DO Work Phone: Comment on above: [employer] 05-01-2021 13:23-0500 Body height 157.48 cm Celio Zhou Work Phone: [facility] Work Phone: 05-01-2021 13:23-0500 Body mass index (BMI) [Ratio] 43.01 kg/m2 Celio Zhou Work Phone: [facility] Work Phone: 05-01-2021 13:23-0500 Body surface area Derived from formula 2.05 m2 Celio Zhou [facility] Work Phone: 05-01-2021 13:23-0500 Body temperature 97.5 [degF] Celio Zhou [facility]: [facility] Work Phone: 05-01-2021 13:23-0500 Body weight 106.65 kg Celio Zhou Work Phone: [facility] Work Phone: 05-01-2021 13:23-0500 Diastolic blood pressure 80 mm[Hg] Celio Zhou Work Phone: [facility] Work Phone: 05-01-2021 13:23-0500 Heart rate 88 /min Celio Zhou Work Phone: [facility] Work Phone: 05-01-2021 13:23-0500 Respiratory rate 14 /min Celio Zhou Work Phone: [facility] Work Phone: 05-01-2021 13:23-0500 SaO2% (BldA) [Mass fraction] 98 % [facility] Work Phone: 05-01-2021 13:23-0500 Systolic blood pressure 122 mm[Hg] Cel[facility] Work Phone: 12-10-2020 09:50-0400 Body height 157.48 cm Celio [facility] Work Phone: 12-10-2020 09:50-0400 Body mass index (BMI) [Ratio] 40.57 kg/m2 Celio Ledesmas [facility]: [facility] Work Phone: 12-10-2020 09:50-0400 Body surface area Derived from formula 2 m2 Celio Zhou [facility] Work Phone: 12-10-2020 09:50-0400 Body temperature 97.8 [degF] Celio W Escolas [facility]: [facility] Work Phone: 12-10-2020 09:50-0400 Body weight 100.61 kg Celio Zhou [facility]: [facility] Work Phone: 12-10-2020 09:50-0400 Diastolic blood pressure 78 mm[Hg] Celio Ledesmas [facility] Phone: [facility] Work Phone: 12-10-2020 09:50-0400 Heart rate 69 /min Celio Zhou Work Phone: [facility] Work Phone: 12-10-2020 09:50-0400 Respiratory rate 16 /min Celio Zhou Work Phone: [facility] Work Phone: 12-10-2020 09:50-0400 SaO2% (BldA) [Mass fraction] 99 % Celio Ledesmas Work Phone: [facility] Work Phone: 12-10-2020 09:50-0400 Systolic blood pressure 112 mm[Hg] Celio Ledesmas Work Phone: [facility] Work Phone: 10-08-2020 10:53-0400 Body height 157.48 cm Celio Ledesmas [facility] Phone: [facility] Work Phone: 10-08-2020 10:53-0400 Body mass index (BMI) [Ratio] 40.6 kg/m2 Celio Ledesmas Work Phone: [facility] Work Phone: 10-08-2020 10:53-0400 Body surface area Derived from formula 2 m2 Celio Ledesmas Work Phone: [facility] Work Phone: 10-08-2020 10:53-0400 Body temperature 97.2 [degF] Celio Ledesmas Work Phone: [facility] Work Phone: 10-08-2020 10:53-0400 Body weight 100.7 kg Celio Ledesmas Work Phone: [facility] Work Phone: 10-08-2020 10:53-0400 Diastolic blood pressure 84 mm[Hg] Celio [facility]mas [facility] Work Phone: 10-08-2020 10:53-0400 Heart rate 80 /min Celio Ledesmas [facility] Work Phone: 10-08-2020 10:53-0400 Respiratory rate 16 /min Celio Ledesmas [facility] Work Phone: 10-08-2020 10:53-0400 SaO2% (BldA) [Mass fraction] 98 % Celio Ledesmas [facility] Work Phone: 10-08-2020 10:53-0400 Systolic blood pressure 112 mm[Hg] Celio Ledesmas Work Phone: [facility] Work Phone: 08-06-2020 09:25-0400 Body height 157.48 cm Celio Ledesmas [facility] Work Phone: 08-06-2020 09:25-0400 Body mass index (BMI) [Ratio] 43.53 kg/m2 Celio Ledesmas Work Phone: [facility] Work Phone: 08-06-2020 09:25-0400 Body surface area Derived from formula 2.06 m2 Celio Ledesmas [facility] Work Phone: 08-06-2020 09:25-0400 Body temperature 97.2 [degF] Celio [facility] Work Phone: 08-06-2020 09:25-0400 Body weight 107.96 kg Celio Zhou [facility]: [facility] Work Phone: 08-06-2020 09:25-0400 Diastolic blood pressure 80 mm[Hg] Celio [facility] Work Phone: 08-06-2020 09:25-0400 Heart rate 72 /min Celio Zhou [facility] Work Phone: 08-06-2020 09:25-0400 SaO2% (BldA) [Mass fraction] 100 % Celio Ledesmas [facility]: [facility] Work Phone: 08-06-2020 09:25-0400 Systolic blood pressure 106 mm[Hg] Celio Nhi Jorgecraigs Work Phone: [facility] Work Phone: 07-10-2020 09:07-0400 Body height 157.48 cm Celio Ledesmas Work Phone: [facility] Work Phone: 07-10-2020 09:07-0400 Body mass index (BMI) [Ratio] 44.99 kg/m2 Celio Ledesmas Work Phone: [facility] Work Phone: 07-10-2020 09:07-0400 Body surface area Derived from formula 2.09 m2 Celio Ledesmas [facility] Work Phone: 07-10-2020 09:07-0400 Body temperature 97.2 [degF] Celio Ledesmas [facility] Phone: [facility] Work Phone: 07-10-2020 09:07-0400 Body weight 111.59 kg Celio Ledesmas [facility] Work Phone: 07-10-2020 09:07-0400 Diastolic blood pressure 86 mm[Hg] Celio Ledesmas [facility]: [facility] Work Phone: 07-10-2020 09:07-0400 Heart rate 93 /min Celio Ledesmas [facility]: [facility] Work Phone: 07-10-2020 09:07-0400 SaO2% (BldA) [Mass fraction] 98 % Celio Ledesmas [facility]: [facility] Work Phone: 07-10-2020 09:07-0400 Systolic blood pressure 108 mm[Hg] Celio Led[facility]mas [facility] Work Phone: 04-03-2020 12:48-0500 BMI (Body Mass Index) 47.92 kg/m2 Gera Flanagan UJ-ZTUDY-Kirays 320 Work Phone: 04-03-2020 12:48-0500 Body weight 118.84 kg Gera Flanagan LC-YJSHJ-Ewtseb 320 Work Phone: 04-03-2020 12:48-0500 BSA (Body Surface Area) 2.14 m2 Gera Flanagan QD-BNRVN-Qaftdg 320 Work Phone: 04-03-2020 12:48-0500 Height 157.48 cm Gera Flanagan UA-TQDWM-Pkuiwr 320 Work Phone: 04-03-2020 12:48-0500 0 1 Gera Flanagan BU-SBPSK-Luepjl 320 Work Phone: Comment on above: Para Pain Scale 01-26-2020 17:04-0500 BMI (Body Mass Index) 47.98 kg/m2 Mishel Weinerman YO-KTMDR-Ttjrxh 310 IVF Work Phone: 01-26-2020 17:04-0500 Body weight 118.98 kg Mishel Weinerman IT-GRVND-Ohtjkw 310 IVF Work Phone: 01-26-2020 17:04-0500 BSA (Body Surface Area) 2.15 m2 Mishel Weinerman QD-GHJGX-Cahqwn 310 IVF Work Phone: 01-26-2020 17:04-0500 Height 157.48 cm Mishel Weinerman VO-PNLFN-Yimskj 310 IVF Work Phone: 01-26-2020 17:04-0500 0 1 Mishel Weinerman UZ-QJJNX-Mpflcd 310 IVF Work Phone: Comment on above: Pain Scale Para 01-22-2020 11:58-0500 BP Diastolic 86 mm[Hg] Mishel Weinerman YW-LYZPO-Tffkvz 310 IVF Work Phone: 01-22-2020 11:58-0500 BP Systolic 132 mm[Hg] Mishel Cartagena PM-HIKAO-Zmeweg 310 IVF Work Phone: 01-22-2020 11:33-0500 BMI (Body Mass Index) 48.35 kg/m2 Mishel Cartagena TN-WXYUR-Emcnna 310 IVF Work Phone: 01-22-2020 11:33-0500 Body Temperature 98.6 [degF] Mishel Cartagena DF-GDVYU-Vmiki n 310 IVF Work Phone: 01-22-2020 11:33-0500 Body weight 119.92 kg Mishel Cartagena VB-OSDBA-Phfrob 310 IVF Work Phone: 01-22-2020 11:33-0500 BP Diastolic 100 mm[Hg] Mishel Foxerman WK-GSYTB-Ernazo 310 IVF Work Phone: 01-22-2020 11:33-0500 BP Systolic 124 mm[Hg] Mishel Cartagena YC-NDMOU-Xtspej 310 IVF Work Phone: 01-22-2020 11:33-0500 BSA (Body Surface Area) 2.15 m2 Mishel Cartagena AJ-HQYQU-Zgwpqa 310 IVF Work Phone: 01-22-2020 11:33-0500 Height 157.48 cm Mishel Cartaegna MA-DNKGI-Devzyf 310 IVF Work Phone: 01-22-2020 11:33-0500 Pulse (Heart Rate) 74 /min Mishel Cartagena AU-IRNRB-Vvf man 310 IVF Work Phone: 01-22-2020 11:33-0500 Pulse Oximetry 99 % Mishel Cartagena BV-ODTFS-Ycmnjf 310 IVF Work Phone: 1990 01:00-0400 >na< Mike Nicholson Dept. 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 Encounters Encounter Date Encounter Type Care Provider Facility Start: 12-28-2024 [facility] Facility: [facility] Start: 12-21-2024 ambulatory [facility] Facility: [facility] Start: 12-21-2024 ambulatory [facility] Facility: [facility] Start: 12-14-2024 ambulatory [facility] Facility: [facility] Start: 12-13-2024 End: 12-13-[address] Judie Bella MD Work Phone: -[facility] Start: 12-13-2024 End: 12-13-[address] Tawana Timmons MD -[facility] Work Phone: Start: 12-13-2024 End: 12-13-[address] Tawana Timmons MD -[facility] Work Phone: Start: 12-13-2024 End: 12-13-[address] Judie Bella MD Work Phone: [facility] Start: 12-08-2024 End: 12-08-[address] Anh Song DO -[facility] Work Phone: Start: 12-08-2024 End: 12-08-[address] Judie Bella MD Work Phone: [facility] Start: 11-30-2024 End: 11-30-[address] Judie Bella MD Work Phone: [facility] Start: 11-30-2024 End: 11-30-2024 Patient encounter procedure Ade TINSLEY -[facility] Work Phone: Start: 11-30-2024 End: 11-30-2024 ambulatory Judie Bella Facility:[facility] Start: 11-23-2024 End: 11-23-[address] Tawana Timmons MD -[facility] Work Phone: Start: 11-23-2024 End: 11-23-[address] Judie Bella MD Work Phone: -[facility] Start: 11-20-2024 End: 11-20-[address] Judie Bella MD Work Phone: -[facility]trasound [facility] Start: 11-20-2024 End: 11-20-2024 Patient encounter procedure Carmen SHAY -Ultrasound [facility] Work Phone: Start: 11-20-2024 End: 11-20-2024 ambulatory Judie Mied Facility:[facility] Start: 11-10-2024 End: 11-10-[address] Tawana Timmons MD Work Phone: -Laboratory Start: 11-10-2024 End: 11-10-2024 Patient encounter procedure Carmen SHAYM -Laboratory Work Phone: Start: 11-10-2024 End: 11-10-2024 ambulatory Judie Churchilledsunil Facility:[facility] Start: 10-30-2024 End: 10-30-[address] Tawana Timmons MD Work Phone: -[facility] Start: 10-30-2024 End: 10-30-2024 Patient encounter procedure Carmen Perdomo CNM -[facility] Work Phone: Start: 10-30-2024 End: 10-30-2024 ambulatory [facility] Facility:[facility] Start: 10-02-2024 End: 10-02-2024 Patient encounter procedure Carmen Perdomo CNM -[facility] Work Phone: Start: 10-02-2024 End: 10-02-2024 ambulatory Carmen Perdomo CNM Work Phone: -[facility] Start: 09-12-2024 End: 09-12-2024 [facility] Start: 09-01-2024 End: 09-01-[address] Anh Song DO -[facility] Work Phone: Start: 09-01-2024 End: 09-01-2024 ambulatory Carmen Perdomo CNM Work Phone: -[facility] Start: 08-31-2024 End: 08-31-2024 ambulatory MD [facility] Start: 08-02-2024 End: 08-02-[address] Anh Song DO -[facility] Work Phone: Start: 08-02-2024 End: 08-02-2024 ambulatory Carmen SHAYM Work Phone: [facility] Work Phone: Start: 08-02-2024 End: 08-02-2024 ambulatory [facility] Facility:[facility] Start: 07-21-2024 End: 07-21-2024 Non-patient / Non-visit Dr. Arnulfo Gilmore MD -[facility] Work Phone: Start: 07-21-2024 End: 07-21-2024 ambulatory Carmen SHAYM Work Phone: [facility] Work Phone: Start: 07-21-2024 End: 07-21-[address] Tawana Timmons MD -Pulmonary Services/Neurology Work Phone: Start: 07-21-2024 End: 07-21-2024 ambulatory [facility] Facility:[facility] Start: 07-06-2024 End: 07-06-[address] Tawana Timmons MD -[facility] Work Phone: Start: 07-06-2024 End: 07-06-2024 ambulatory Carmen SHAYM Work Phone: [facility] Work Phone: Start: 07-06-2024 End: 07-06-2024 ambulatory Tawana Timmons Facility:[facility] Start: 06-09-2024 End: 06-09-2024 ambulatory Carmen Perdomo CNSocorro Work Phone: [facility] Work Phone: Start: 06-09-2024 End: 06-09-2024 Patient encounter procedure Carmen Perdomo CNM -Laboratory, Specimen Work Phone: Start: 06-09-2024 End: 06-09-2024 Patient encounter procedure Carmen Perdomo CNM -[facility] Work Phone: Start: 06-09-2024 End: 06-09-2024 ambulatory Carmen Perdomo Facility:[facility] Start: 06-09-2024 End: 06-09-2024 ambulatory Carmen Perdomo Facility:[facility] Start: 05-26-2024 Non-patient / Non-visit Andressa walker RN -[facility] Work Phone: Start: 05-26-2024 ambulatory Andressa Schmitz Facility :[facility] Start: 05-03-2024 End: 05-03-2024 ambulatory Carmen Perdomo CNM Work Phone: [facility] Work Phone: Start: 05-03-2024 End: 05-03-2024 Patient encounter procedure Carmen Perdomo CNM -Laboratory, Specimen Work Phone: Start: 05-03-2024 Encounter for gynecological examination (general) (routine) without abnormal findings Carmen Perdomo [facility] Start: 05-03-2024 End: 05-03-2024 Patient encounter procedure Carmen Perdomo CNM -[facility] @ Start: 05-03-2024 End: 05-03-2024 Patient encounter status Carmen Perdomo CNM [facility] Start: 05-03-2024 End: 05-03-2024 ambulatory Carmen Perdomo Facility:[facility] Start: 05-03-2024 End: 05-03-2024 ambulatory Carmen Perdomo Facility:[facility] Start: 08-05-2023 End: 08-05-2023 Emergency department patient visit JOSEPH DEL CID DO [facility] Start: 07-22-2023 End: 07-22-[address] [facility] Start: 07-15-2022 End: 07-16-2022 ambulatory [facility] Start: 07-15-2022 End: 07-16-2022 Encounter for general adult medical examination without abnormal findings [facility] Start: 02-27-2022 ambulatory Ms. Tom Naranjo ie PetrAgus Facility:[id number] Start: 02-27-2022 Phys/qhp telephone evaluation 11-20 min Celio Zhou Work Phone: KG-OFENM-Rzlcnufy 2420 DO Work Phone: Start: 02-24-2022 Patient encounter procedure Celio Zhou Work Phone: UE-Gdecjsoime-Zadkykp 1200 DO Work Phone: Start: 02-13-2022 Telephone encounter Celio flannery Work Phone: [id number]-AFSZE-XYW 1200 [place] Work Phone: Start: 02-04-2022 Patient encounter procedure Celio Zhou Work Phone: JE-ZMDLF-Iyizqfmu 2420 DO Work Phone: Start: 02-04-2022 ambulatory Ms. Tom Naranjo ie Petr-Banak Facility:[id number] Start: 01-19-2022 ambulatory CELIO LEDESMAS Facility :[facility] Start: 01-19-2022 Encounter for examination of blood pressure without abnormal findings Suki You [facility] Start: 01-19-2022 Chart Update Celio Ledesmas Work Phone: [id number] 1200 [place] Work Phone: Start: 01-15-2022 ambulatory CELIO LEDESMAS Facility :[id number] Start: 01-15-2022 Chart Update Celio Ledesmas Work Phone: ZG-BLTXR-Fdrkuyi 2nd Fl Work Phone: Start: 01-11-2022 End: 01-11-2022 ambulatory [facility] Work Phone: Start: 01-11-2022 End: 01-11-2022 Patient encounter procedure [facility] Start: 01-07-2022 Office Services Assistant Encounter Celio Zhou Work Phone: [id number]-DBZAF-Zairrp 100 [facility] Work Phone: Start: 01-04-2022 End: 01-07-2022 Evaluation and management of inpatient Sarina Hall [facility] Rodriguez 3 Rm [id number] Start: 12-31-2021 Office outpatient vi sit 15 minutes Celio Ledesmas Work Phone: [id number] 1200 [place] Work Phone: Start: 12-31-2021 ambulatory Ms. Tom Naranjo ie Debra Facility:[id number] Start: 12-24-2021 Office outpatient vi sit 15 minutes Celio Ledesmas Work Phone: EL-CTOML-Lukwxzav 2420 DO Work Phone: Start: 12-24-2021 ambulatory CELIO ZHOU Facility :[id number] Start: 12-23-2021 End: 12-23-2021 ambulatory Unavailable Patient Facility:[facility] Start: 12-22-2021 ambulatory Ms. Tom Naranjo ie Debra Facility:[facility] Romeo [place] Start: 12-17-2021 Office outpatient vi sit 15 minutes Celio Ledesmas Work Phone: [id number] 1200 [place] Work Phone: Start: 12-17-2021 ambulatory Ms. Tom Naranjo ie Petr-Petros Facility:[id number] Start: 12-15-2021 Chart Update Celio Ledesmas Work Phone: [id number] 1200 [place] Work Phone: Start: 12-15-2021 ambulatory Ms. Tom Naranjo ie Debra Facility:[facility] Laredozuleyma [place] Start: 12-12-2021 End: 12-12-2021 ambulatory Unavailable Patient Facility:[facility] Start: 12-12-2021 Office outpatient vi sit 15 minutes Celio Ledesmas Work Phone: [id number] 1200 [place] Work Phone: Start: 12-12-2021 ambulatory CELIO ZHOU Facility :[id number] Start: 11-13-2021 Patient encounter procedure Celio Jorgeolas Work Phone: PA-JNVVJ-Cfncnwkv 2420 DO Work Phone: Start: 11-13-2021 ambulatory Dariela Urvashi ni [facility] Facility:[id number] Start: 11-06-2021 ambulatory Ms. Tom Naranjo ie Petr-Banak Facility:[facility] Start: 11-06-2021 Rx Renewal Celio Hankins Escolas [facility] Work Phone: Start: 10-30-2021 Office outpatient vi sit 15 minutes Celio Ledesmas Work Phone: VE-PNUZS-Topplufk 2420 DO Work Phone: Start: 10-30-2021 ambulatory Suki Callahan lity:[id number] Start: 10-08-2021 Chart Update Celio Jorgeolas Work Phone: AA-TNIOY-Hobxyvst 2420 DO Work Phone: Start: 10-03-2021 ambulatory Ms. Tom Naranjo ie Debra Facility:[id number] Start: 10-03-2021 Office outpatient vi sit 15 minutes Celio Jorgeolas Work Phone: [id number] 1200 [place] Work Phone: Start: 09-11-2021 ambulatory Dariela Landin last [facility] Facility:9459 Start: 07-07-2022 Patient encounter procedure Celio Hankins Escolas Work Phone: KC-SSCJZ-Ngoprvok 2420 DO Work Phone: Start: 09-05-2021 Chart Update Celio Hankins Escolas Work Phone: EB-VKMAX-Ataaismv 2420 DO Work Phone: Start: 08-29-2021 ambulatory Ms. Tom Naranjo ie PetrPetros Facility:[facility] Start: 08-07-2021 ambulatory Dariela Campuzano Facility:9459 Start: 08-07-2021 Office outpatient vi sit 15 minutes Celio Jorgeolas Work Phone: II-GELYN-Dytcwibp 2420 DO Work Phone: Start: 07-11-2021 ambulatory Ms. Tom Naranjo ie PetrPetros Facility:[id number] Start: 07-11-2021 Office outpatient vi sit 15 minutes Celio Jorgeolas Work Phone: UG-ZHVCQ-Ruaswwim 2420 DO Work Phone: Start: 07-01-2021 Chart Update Celio Hankins Escolas Work Phone: [id number] 1200 [place] Work Phone: Start: 06-30-2021 ambulatory CELIO ZHOU Facility :[facility] Romeo [place] Start: 06-24-2021 Chart Update Celio Hankins Escolas Work Phone: [id number] 1200 [place] Work Phone: Start: 06-16-2021 AUDIT Celio Hankins Escolas Work Phone: RX-Pwnddvtw-Lxasudxw [place] Work Phone: Start: 06-13-2021 Office outpatient ne w 45 minutes Celio Hankins Escolas Work Phone: PS-EZTRZ-Iekogqwq 2420 DO Work Phone: Start: 06-13-2021 ambulatory Ms. Tom Naranjo ie Petr-Banak Facility:[id number] Start: 06-13-2021 ambulatory Ms. Tom Naranjo ie Petr-Banak Facility:[facility] Start: 06-13-2021 ambulatory CELIO LEDESMAS Facility :[facility] Start: 06-04-2021 ULTRASDFNT, Provider : JERROD NYE, Status: Pen, Time: 3:30 PM Celio Jorgeolas Work Phone: zz DO NOT USE - [facility] Only Start: 06-04-2021 ambulatory CELIO Hankins ESCOLAS Facility :[facility] Rome[place] Start: 06-03-2021 Image Encounter Celio Ledesmas Work Phone: zz DO NOT USE - [facility] Only Start: 06-03-2021 AUDIT Celio Jorgeolas Work Phone: [id number] 1200 [place] Work Phone: Start: 05-01-2021 Office outpatient vi sit 25 minutes [facility] Led[facility]mas [facility]: Start: 05-01-2021 ambulatory CELIO LEDESMAS Facility :[id number] Start: 04-08-2021 ambulatory CELIO LEDESMAS Facility :[id number] Start: 04-07-2021 End: 04-08-2021 Office outpatient new 45 minutes 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 Start: 04-07-2021 End: 04-08-2021 Office outpatient visit 15 minutes 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 Start: 02-05-2021 Rx Renewal [facility]: Start: 01-29-2021 Rx Renewal [facility]olas [facility]: Start: 12-10-2020 Office outpatient vi sit 15 minutes Celio Hankins Alinacelena Work Phone: [facility] Work Phone: Start: 10-08-2020 Office outpatient vi sit 25 minutes Celio Hankins Alinacelena Work Phone: [facility] Work Phone: Start: 10-08-2020 Patient encounter procedure Celio Hankins Alinacelena Work Phone: [facility] Work Phone: Start: 10-03-2020 AUDIT Celio Hankins Aniaalma delia Work Phone: -Reproductive Endocrinology-[facility] e 206 Work Phone: Start: 08-08-2020 Chart Update Celio Hankins Alinacelena Work Phone: -Ambulatory Infusion Center-[facility] 1600 DO Work Phone: Start: 08-06-2020 Office outpatient vi sit 15 minutes Celio Hankins Alinacelena Work Phone: [facility] Work Phone: Start: 04-03-2020 Patient encounter procedure Gera Panchito YZ-YFNZW-Oganwq 320 Work Phone: Start: 03-14-2020 Patient encounter procedure Gera Panchito DI-AIATX-Mtsifb 320 Work Phone: Start: 03-13-2020 Patient encounter procedure Gera Flanagan PX-JJFZA-Egjamk 310 IVF Work Phone: Start: 03-06-2020 Patient encounter procedure Gera Flanagan BH-CDUCJ-Sckabi 310 IVF Work Phone: Start: 02-15-2020 Patient encounter procedure Gera Flanagan NT-CGJJZ-Txqqss 310 IVF Work Phone: Start: 02-12-2020 Patient encounter procedure Gera Flanagan AF-[id number]-Oaealn 310 IVF Work Phone: Start: 01-26-2020 Patient encounter procedure Mishel Cartagena GH-RMZIV-Yvsrko 310 IVF Work Phone: Start: 01-22-2020 Patient encounter procedure Mishel Cartagena GI-NOCFG-Mvehqn 310 IVF Work Phone: Start: 01-16-2020 Patient encounter procedure Mishel Cartagena PD-CQYBO-Zcbjjh 310 IVF Work Phone: Start: 12-15-2019 Patient encounter procedure Gera Flanagan RG-BCVPG-Qihdfl 310 IVF Work Phone: Start: 09-18-2019 Patient encounter procedure Mishel Cartagena BL-WNDFB-Mdmxnt 310 IVF Work Phone: Start: 04-07-2019 Patient encounter procedure Celio Zhou [facility] Work Phone: Start: 01-27-2019 Patient encounter procedure Celio Zhou -[facility] Work Phone: Start: 12-27-2018 Patient encounter procedure Celio Zhou [facility] Work Phone: End: 01-28-2019 Patient encounter procedure Celio Zhou Work Phone: -[facility] Work Phone: Procedures Date Procedure Procedure Detail Performing Clinician Start: 12-13-2024 Ultrasonography for biophysical profile without non-stress testing Dr. Judie Bella MD Work Phone: Start: 12-08-2024 Ultrasonography for biophysical profile without non-stress testing Dr. Judie Bella MD Work Phone: Start: 11-30-2024 Ultrasonography for biophysical profile without non-stress testing Dr. Judie Bella MD Work Phone: Start: 11-20-2024 Ultrasonography for biophysical profile without non-stress testing Dr. Judie Bella MD Work Phone: Start: 10-30-2024 Serologic test for syphilis Dr. Tawana Timmons MD Work Phone: Start: 07-06-2024 Hepatitis C antibody measurement Carmen Perdomo [facility] Work Phone: Comment on above: Reactive: Presumptiv e evidence of antibodies to HCV. Follow CDC recommendations for supplemental testing.Non-Reactive: Antibodies to HCV were not detected; does not exclude the possibility of exposure to HCVReactive Results are presumptive evidence of antibodies to HCV. Follow CDC recommendations for supplemental testing.Order confirmation testing: HCV Quant by PCR testing - HCVPCR #[id number] Non Reactive: < 0.8 Equivocal: >/= 0.8 to < 1.0 Reactive: >/= 1.0The [facility] requires that a reactive/equivocal HCV antibody result be sent out for confirmation. HCV Quant by PCR testing. Start: 07-06-2024 Procedure Carmen blount [facility] Work Phone: Start: 07-06-2024 Rubella IgG measurement Carmen Perdomo [facility] Work Phone: Comment on above: Antibody Result: Int erpretationNon-Reactive: Non- ImmuneReactive: ImmuneThe following results were obtained with the [employer] Rubella IgG assay. Results from assays of other manufacturers cannot be used interchangeably. Start: 07-06-2024 Serologic test for syphilis Carmen Perdomo [facility] Work Phone: Start: 06-09-2024 Urine culture Carmen lowery [facility] Work Phone: Start: 05-03-2024 Liquid based cervica l cytology screening Carmen Perdomo [facility] Work Phone: Comment on above: NEGATIVE [...] ES NUSRAT Start: 07-15-2022 THYROXINE, TOTAL CELIO Liz HENNA Start: 02-24-2022 Psychiatric diagnost ic eval w/medical services Celio Zhou Work Phone: Start: 01-04-2022 Antibody screen Marielle Campuzano Comment on above: Performed By: #### T +S #### [facility] [address] [place] [address] Start: 06-13-2021 Antibody screen Marielle Campuzano Comment on above: Performed By: #### T +S #### [facility] [address] [place] [id number] Start: 03-29-2020 Assay of estradiol Andrew dallas Panchito Start: 03-29-2020 Gonadotropin luteini zing hormone Gera Panchito Start: 03-04-2020 IO Ultrasound, limit ed pelvic, follicle monitoring Gera Flanagan Start: 02-02-2020 Assay of estradiol Courtney Cartagena Start: 02-02-2020 Gonadotropin luteini zing hormone Mishel Cartagena Cholecystectomy Celio Zhou Colposcopy Mishel [place] Plan of Treatment Date Care Activity Detail Author Start: 12-13-2024 Obstetric monitoring [facility] Start: 12-13-2024 Vital signs measurements [facility] Start: 12-13-2024 [facility] Start: 12-13-2024 Patient discharge [facility] Start: 12-08-2024 Biophysical pr ofile panel US [facility] Start: 12-08-2024 Ultrasonography for biophysical profile without non-stress testing OB Biophysical Prof W/O NST [facility] Start: 11-23-2024 [facility] Start: 10-30-2024 CBC W Auto Different ial panel - Blood [facility] Start: 10-30-2024 Measurement of gluco se 2 hours after glucose challenge for glucose tolerance test [facility] Start: 10-30-2024 Serologic test for syphilis [facility] Start: 10-30-2024 [facility] Start: 06-09-2024 Chlamydia deoxyribon ucleic acid detection [facility] Start: 03-24-2022 GABO, Provider : Michelle Ervin, Status: Pen, Time: 10:00 AM GABO, Provider: Michelle Ervin, Status: Pen, Time: 10:00 AM XE-AFZNX-Slchmupl 2420 DO Work Phone: Start: 02-24-2022 VIRNPVHOME, Provider : Michelle Ervin, Status: Pen, Time: 12:30 PM VIRNPVHOME, Provider: Michelle Ervin, Status: Pen, Time: 12:30 PM OR-SMNYA-DZT 1200 [place] Work Phone: Start: 02-04-2022 Patient encounter procedure COAT TAILOR Nurse Mid Start: 02-04-2022 PPV, Provider: Tom Bull, Status: Pen, Time: 2:30 PM PPV, Provider: Sophia Bull, Status: Pen, Time: 2:30 PM HR-JSBOK-Brtbek 100 [facility] Work Phone: Start: 01-19-2022 PPV, Provider: Suki You, Status: Pen, Time: 1:30 PM PPV, Provider: Suki You, Status: Pen, Time: 1:30 PM GP-JHXKO-Cbizwaz 2nd Fl Work Phone: Start: 01-15-2022 Patient encounter procedure COAT TAILOR [place] Start: 01-15-2022 PPV, Provider: Suki You, Status: Pen, Time: 2:30 PM PPV, Provider: Suki You, Status: Pen, Time: 2:30 PM VN-WWBCD-Azxsmy 100 [facility] Work Phone: Start: 01-11-2022 Patient discharge [facility] Work Phone: Start: 01-09-2022 EPVOB, Provider: Dariela Campuzano, Status: Pen, Time: 4:15 PM EPVOB, Provider: Dariela Campuzano , Status: Pen, Time: 4:15 PM MX-XKFTZ-Iimlhzyp 2420 DO Work Phone: Start: 01-09-2022 RNVISIT, Provider: O B NURSES JERROD CARDONA, Status: Pen, Time: 3:45 PM RNVISIT, Provider: OB NURSES JERROD CARDONA, Status: Pen, Time: 3:45 PM AA-HPYDO-Cfsdbbth 2420 DO Work Phone: Start: 01-05-2022 End: 01-05-2022 Placental Record [Baby A] Placental Record [Baby A] Date: 05-Jan-2022 [facility] Start: 01-05-2022 End: 01-06-2023 [facility] Comment on above: Consult provider jose [...] Consult Provider prior to administration. Start: 01-04-2022 [facility], Provider: Jagjit Boles, Status: Pen, Time: 8:00 AM [facility], Provider: Jagjit Boles, Status: Pen, Time: 8:00 AM VA-XAKHS-Wgfxszlm 2420 DO Work Phone: Start: 01-02-2022 EPVOB, Provider: Tom Bull, Status: Pen, Time: 4:15 PM EPVOB, Provider: Sophia Bull, Status: Pen, Time: 4:15 PM XT-GKOVE-Kjhrnlls 2420 DO Work Phone: Start: 01-02-2022 RNVISIT, Provider: O B NURSES ROMEOMGOBGYN, Status: Pen, Time: 3:45 PM RNVISIT, Provider: OB NURSES ROMEOMGOBОЛЬГАN, Status: Pen, Time: 3:45 PM AN-FHIFT-Lquhfded 2420 DO Work Phone: Start: 12-31-2021 EPVOB, Provider: Tom Bull, Status: Pen, Time: 2:45 PM EPVOB, Provider: Sophia Bull, Status: Pen, Time: 2:45 PM LT-NLXJA-Fujycxpy 2420 DO Work Phone: Start: 12-31-2021 RNVISIT, Provider: O B NURSES MG ROMEOOBОЛЬГАN, Status: Pen, Time: 2:15 PM RNVISIT, Provider: OB NURSES ROMEOMGOBRILEY, Status: Pen, Time: 2:15 PM KF-EXOFL-Ooducbqm 2420 DO Work Phone: Start: 12-24-2021 EPVOB, Provider: Tom Bull, Status: Pen, Time: 3:30 PM EPVOB, Provider: Sophia Bull, Status: Pen, Time: 3:30 PM JL-SPSJR-Cmvbfzyn 2420 DO Work Phone: Start: 12-24-2021 RNVISIT, Provider: O B NURSES ROMEOMGOBGYN, Status: Pen, Time: 3:00 PM RNVISIT, Provider: OB NURSES ROMEOMGOBGYN, Status: Pen, Time: 3:00 PM DJ-ZIKTF-Kqnwnldp 2420 DO Work Phone: Start: 12-18-2021 EPVOB, Provider: Dariela Campuzano, Status: Pen, Time: 2:45 PM EPVOB, Provider: Dariela Campuzano , Status: Pen, Time: 2:45 PM AD-ZRVXY-Rmyhzgfo 2420 DO Work Phone: Start: 12-18-2021 RNVISIT, Provider: O B NURSES ROMEOMGOBGYN, Status: Pen, Time: 2:15 PM RNVISIT, Provider: OB NURSES ROMEOMGOBGYN, Status: Pen, Time: 2:15 PM ST-UCXVH-Uiktuidx 2420 DO Work Phone: Start: 12-15-2021 ULTRASDFUV, Provider : OB PARK3MGOBGYN, Status: Pen, Time: 3:30 PM ULTRASDFUV, Provider: OB PARK3,MGOBGYN, Status: Pen, Time: 3:30 PM YN-TZNHA-Sjmlgnsl 2420 DO Work Phone: Start: 12-12-2021 EPVOB, Provider: Dariela Campuzano, Status: Pen, Time: 4:15 PM EPVOB, Provider: Dariela Campuzano , Status: Pen, Time: 4:15 PM MQ-WBLZB-Ccdegrcv 2420 DO Work Phone: Start: 12-12-2021 EPVOB, Provider: Tom Bull, Status: Pen, Time: 4:00 PM EPVOB, Provider: Sophia Bull, Status: Pen, Time: 4:00 PM ZT-BLIJD-DZE 1200 [place] Work Phone: Start: 12-12-2021 RNVISIT, Provider: O B NURSES ROMEO,MGOBGYN, Status: Pen, Time: 3:30 PM RNVISIT, Provider: OB NURSES ROMEOMGOBGYN, Status: Pen, Time: 3:30 PM QS-OKOPP-Tcxlclzz 2420 DO Work Phone: Start: 11-28-2021 EPVOB, Provider: Tom Bull, Status: Pen, Time: 4:00 PM EPVOB, Provider: Sophia Bull, Status: Pen, Time: 4:00 PM DZ-KYSTL-Phfuasdg 2420 DO Work Phone: Start: 11-13-2021 EPVOB, Provider: Dariela Campuzano, Status: Pen, Time: 2:30 PM EPVOB, Provider: Dariela Campuzano , Status: Pen, Time: 2:30 PM ZO-BVSSC-Qksilqkr 2420 DO Work Phone: Start: 11-06-2021 ULTRASDFUV, Provider : LELAND HARPER 1,MGOBGYN, Status: Pen, Time: 3:30 PM ULTRASDFUV, Provider: LELAND HARPER 1,MGOBGYN, Status: Pen, Time: 3:30 PM JZ-BBYUH-Wcedtofp 2420 DO Work Phone: Start: 10-31-2021 EPVOB, Provider: Tom Bull, Status: Pen, Time: 4:15 PM EPVOB, Provider: Sophia uBll, Status: Pen, Time: 4:15 PM HW-LMMKS-Sxgnjlzb 2420 DO Work Phone: Start: 10-31-2021 ULTRASDFUV, Provider : LELAND HARPER 1,MGOBGYN, Status: Pen, Time: 1:15 PM ULTRASDFUV, Provider: LELAND HARPER 1,MGOBGYN, Status: Pen, Time: 1:15 PM CC-YJVZP-Zaaajesq 2420 DO Work Phone: Start: 10-30-2021 ULTRASDFUV, Provider : LELAND HARPER 2,MGOBGYN, Status: Pen, Time: 3:00 PM ULTRASDFUV, Provider: LELAND HARPER 2,MGOBGYN, Status: Pen, Time: 3:00 PM IS-DQRCO-YLD 1200 [place] Work Phone: Start: 10-30-2021 EPVOB, Provider: Suki You, Status: Pen, Time: 11:45 AM EPVOB, Provider: Suki You, Status: Pen, Time: 11:45 AM VQ-NJODC-ISY 1200 [place] Work Phone: Start: 10-03-2021 EPVOB, Provider: Tom Bull, Status: Pen, Time: 4:15 PM EPVOB, Provider: Sophia Bull, Status: Pen, Time: 4:15 PM RH-SFUIG-Esqxoomz 2420 DO Work Phone: Start: 09-11-2021 EPVOB, Provider: Dariela Campuzano, Status: Pen, Time: 10:45 AM EPVOB, Provider: Dariela Campuzano , Status: Pen, Time: 10:45 AM RA-NWBRN-Ivcipprs 2420 DO Work Phone: Start: 09-05-2021 EPVOB, Provider: Tom Bull, Status: Pen, Time: 4:15 PM EPVOB, Provider: Sophia Bull, Status: Pen, Time: 4:15 PM NZ-CSHTY-Zdugvfhz 2420 DO Work Phone: Start: 08-29-2021 ULTRASDANT, Provider : LELAND HARPER 1,MGOBGYN, Status: Pen, Time: 2:00 PM ULTRASDANT, Provider: LELAND HARPER 1,MGOBGYN, Status: Pen, Time: 2:00 PM AY-VSMFZ-Srplvfig 2420 DO Work Phone: Start: 08-07-2021 EPVOB, Provider: Dariela Campuzano, Status: Pen, Time: 11:00 AM EPVOB, Provider: Dariela Campuzano , Status: Pen, Time: 11:00 AM WO-AZMBB-Mwuoxeud 2420 DO Work Phone: Start: 07-11-2021 EPVOB, Provider: Tom Bull, Status: Pen, Time: 4:00 PM EPVOB, Provider: Sophia Bull, Status: Pen, Time: 4:00 PM TS-AQKBO-Vynvqiij 2420 DO Work Phone: Start: 06-30-2021 ULTRASDFNT, Provider : LELAND HARPER 2,MGOBОЛЬГАN, Status: Pen, Time: 3:45 PM ULTRASDFNT, Provider: LELAND HARPER 2,MGOBGYN, Status: Pen, Time: 3:45 PM DU-PPZBL-UZR 1200 [place] Work Phone: Start: 06-13-2021 NPVOBINTL, Provider: Tom Bull, Status: Pen, Time: 11:30 AM NPVOBINTL, Provider: Sophia Bull, Status: Pen, Time: 11:30 AM zz DO NOT USE - [facility] Only Start: 05-23-2021 NPVOBINTL, Provider: Dariela Campuzano, Status: Pen, Time: 3:30 PM NPVOBINTL, Provider: Dariela Campuzano , Status: Pen, Time: 3:[address] [facility] Work Phone: CBC W Auto Different ial panel - Blood [facility] CBC W Auto Different ial panel - Blood [facility] Comprehensive metabo lic 2000 panel - Serum or Plasma [facility] Electrocardiographic procedure [facility] Erythrocyte mean cor puscular volume determination [facility] Biophysical pr ofile panel US [facility] Hematocrit [Volume F raction] of Blood [facility] Hemoglobin [Mass/vol ume] in Blood [facility] Hemoglobin A1c/Hemoglobin.total in Blood [facility] Hepatitis C antibody measurement [facility] Leukocytes [#/volume ] in Blood [facility] Mean corpuscular hem oglobin concentration determination [facility] Mean corpuscular hem oglobin determination [facility] Measurement of gluco se 2 hours after glucose challenge for glucose tolerance test [facility] Neisseria gonorrhoea e rRNA [Presence] in Unspecified specimen by MCKENZIE with probe detection [facility] Neutrophil count [facility] Neutrophil percent differential count [facility] Patient Education Kick Counts ED False Labor OB Triage: Return to Hospital or Notify Physician if you Experience: [facility] Work Phone: Patient referral [facility] Work Phone: PCR test for Chlamyd ia trachomatis [facility] Platelets [#/volume] in Blood [facility] Protein/Creatinine [ Ratio] in Urine [facility] Red blood cell count [facility] Red cell distributio n width determination [facility] Rubella IgG measurement [facility] Serologic test for syphilis [facility] Serologic test for syphilis [facility] Ultrasound scan for growth [facility] Ultrasound scan for growth [facility] QV-NFDKH-Zbzppk 310 IVF Work Phone: [facility] NEGATED: Highlighted row has been ruled out! Planned Goals not documented JB-IYBRA-Qcaehf 310 IVF Work Phone: Immunizations Immunization Date Immunization Notes Care Provider Fa jaimie 11-23-2024 tetanus toxoid, redu sussy diphtheria toxoid, and acellular pertussis vaccine, adsorbed Dr. Judie Bella MD Work Phone: [facility] 02-06-2022 Pfizer COVID-19 Vac Bivalent 30 MCG/0.3ML Intramuscular Suspension Celio Zhou Work Phone: MG-Gvlvhovwte-Ierxma l 1200 DO Work Phone: 01-07-2022 measles, mumps and rubella virus vaccine Celio Zhou Work Phone: UF-SKVIP-Iuikmdm 2nd Fl Work Phone: 11-13-2021 tetanus toxoid, redu sussy diphtheria toxoid, and acellular pertussis vaccine, adsorbed; Translations: [Tdap (Boostrix)] Celio Zhou Work Phone: XP-YQVEN-Vaelzlgy 2420 DO Work Phone: Comment on above: Series: 01-24-2021 Pfizer-BioNTech COVID-19 Vacc 30 MCG/0.3ML Intramuscular Suspension Celio Zhou Work Phone: [facility] Work Phone: 04-04-2020 Moderna COVID-19 Vaccine 100 MCG/0.5ML Intramuscular Suspension Celio Zhou Work Phone: [facility] Work Phone: 03-06-2020 Moderna COVID-19 Vaccine 100 MCG/0.5ML Intramuscular Suspension Celio Zhou Work Phone: [facility] Work Phone: 12-10-2016 influenza, seasonal, injectable Celio Zhou Work Phone: [facility] Work Phone: 04-03-2002 hepatitis B vaccine, pediatric or pediatric/adolescent dosage Celio Zhou Work Phone: [facility] Work Phone: 10-31-2001 hepatitis B vaccine, pediatric or pediatric/adolescent dosage Celio Zhou Work Phone: [facility] Work Phone: 09-28-2001 hepatitis B vaccine, pediatric or pediatric/adolescent dosage Celio Zhou Work Phone: [facility] Work Phone: 06-29-1990 diphtheria, tetanus toxoids and acellular pertussis vaccine, unspecified formulation Celio Zhou Work Phone: [facility] Work Phone: 06-29-1990 trivalent poliovirus vaccine, live, oral Celio Zhou Work Phone: [facility] Work Phone: 03-30-1990 haemophilus influenz ae type b vaccine, conjugate unspecified formulation Celio Ledesmas Work Phone: [facility] Work Phone: 03-30-1990 measles, mumps and rubella virus vaccine Celio Ledesmas Work Phone: [facility] Work Phone: 07-07-1989 diphtheria, tetanus toxoids and pertussis vaccine Celio Nhi Ledesmas Work Phone: [facility] Work Phone: 05-12-1989 diphtheria, tetanus toxoids and pertussis vaccine Celio Jorgeolas Work Phone: [facility] Work Phone: 05-12-1989 trivalent poliovirus vaccine, live, oral [facility] Work Phone: [facility] Work Phone: 03-10-1989 diphtheria, tetanus toxoids and pertussis vaccine Celio Jorgeolas Work Phone: [facility] Work Phone: 03-10-1989 trivalent poliovirus vaccine, live, oral [facility] Work Phone: [facility] Work Phone: 1990 pneumococcal conjuga te vaccine, 7 valent [facility] Dept[facility] 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 influenza virus vaccine, unspecified formulation Mishel Cartagena ZQ-ZJVYB-Yjmyum 310 IVF Work Phone: Comment on above: Approx [id number] Approx [id number] Ser ies: Payers Date Payer Category Payer Self-pay 2023 Unknown [id number] 2022 Unknown [id number] 2021 Unknown [id number] 1988 Unknown [id number] 2.16. 840.1.897149.3.579.2.356 1988 Unknown [id number] 2.. 840.1.397410.3.579.2.356 1988 Unknown [id number] 2. 840.1.491807.3.579.2.356 1988 Unknown [id number] 2. 840.1.101267.3.579.2.356 1988 Unknown [id number] 2. 840.1.291342.3.579.2.356 1988 Unknown [id number] 2. 840.1.477076.3.579.2.356 1988 Unknown [id number] 2. 840.1.398782.3.579.2.356 1988 Unknown [id number] 2.0.1.169491.3.579.2.356 1988 Unknown [id number] 2.0.1.972559.3.579.2.356 1988 Unknown [id number] 2. 840.1.827020.3.579.2.356 1988 Unknown [id number] 2. 840.1.190608.3.579.2.356 1988 Unknown [id number] 2.0.1.873794.3.579.2.356 1988 Unknown [id number] 2. 840.1.363871.3.579.2.356 1988 Unknown [id number] 2 840.1.587297.3.579.2.356 1988 Unknown [id number] 2. 840.1.931187.3.579.2.356 1988 Unknown [id number] 2 840.1.460951.3.579.2.356 1988 Unknown [id number] 2. 840.1.583328.3.579.2.356 1988 Unknown [id number] 2. 840.1.807575.3.579.2.356 1988 Unknown [id number] 2.16. 840.1.194767.3.579.2.356 1988 Unknown [id number] 2.16. 840.1.225037.3.579.2.356 1988 Unknown [id number] 2.16. 840.1.575665.3.579.2.356 1988 Unknown [id number] 2.16. 840.1.499655.3.579.2.356 1988 Unknown [id number] 2.16. 840.1.693369.3.579.2.356 1988 Unknown [id number] 2.16. 840.1.580835.3.579.2.356 1988 Unknown [id number] 2.16. 840.1.004139.3.579.2.356 1988 Unknown [id number] 2.16 840.1.407731.3.579.2.356 1988 Unknown [id number] 2.16 840.1.663815.3.579.2.356 1988 Unknown [id number] 2.16 840.1.736354.3.579.2.356 1988 Unknown [id number] 2.16.840 .1.662175.3.579.2.1245 1988 Unknown [id number] 2.16.8 40.1.065085.3.579.2.627 1988 Unknown [id number] 2.16.8 40.1.337672.3.579.2.1244 1988 Unknown [id number] 2.16. 840.1.809368.3.579.2.479 1988 Unknown [id number] 2.16 840.1.998046.3.579.2.479 Unknown Unknown [id number] Unknown [id number] 2.16.8 40.1.433592.3.579.2.462 Unknown [id number] 2.16.8 40.1.186102.3.579.2.462 Unknown [id number] 2.16.8 40.1.382102.3.579.2.462 Unknown [id number] 2.16.8 40.1.400937.3.579.2.462 Unknown [id number] 2.16.8 40.1.660725.3.579.2.462 Unknown [id number] 2.16.8 40.1.852573.3.579.2.462 Unknown [id number] 2.16.8 40.1.820565.3.579.2.462 Unknown [id number] 2.16.8 40.1.617617.3.579.2.462 Unknown [id number] 2.16.8 40.1.975193.3.579.2.462 Unknown [id number] 2.16.8 40.1.636820.3.579.2.462 Unknown [id number] 2.16.8 40.1.258574.3.579.2.462 Unknown [id number] 2.16.8 40.1.900217.3.579.2.462 Unknown [id number] 2.16.8 40.1.458670.3.579.2.462 Unknown [id number] 2.16.8 40.1.166883.3.579.2.462 Unknown [id number] 2.16.8 40.1.295262.3.579.2.462 Unknown [id number] 2.16.8 40.1.614656.3.579.2.462 Unknown [id number] 2.16.8 40.1.681614.3.579.2.462 Unknown [id number] 2.16.8 40.1.676610.3.579.2.462 Unknown [id number] 2.16.8 40.1.069714.3.579.2.462 Unknown [id number] 2.16.8 40.1.122984.3.579.2.462 Unknown [id number] 2.16.8 40.1.727456.3.579.2.462 Unknown [id number] 2.16.8 40.1.831733.3.579.2.462 Unknown [id number] 2.16.8 40.1.129505.3.579.2.462 Unknown [id number] 2.16.8 40.1.041574.3.579.2.462 Unknown [id number] 2.16.8 40.1.865813.3.579.2.462 Unknown [id number] 2.16.8 40.1.239292.3.579.2.462 Unknown [id number] 2.16.8 40.1.565021.3.579.2.462 Unknown [id number] 2.16.8 40.1.533777.3.579.2.462 Unknown [id number] 2.16.8 40.1.115684.3.579.2.462 Social History Date Type Detail Facility Never smoker Never smoker [facility] Work Phone: 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 Tobacco smoking status No Smoking Status Entered [facility] Start: 05-03-2024 End: 05-26-2024 Tobacco smoking status NHIS Never smoked tobacco (finding) [facility] Start: 05-18-2024 End: 06-13-2024 Sex Female (finding) [facility] Sex Female [facility] NEGATED: Highlighted row - - [facility] Work Phone: Goals Date Patient Goal Desired Activity /State Functional Status Date Assessment Result Facility 08-05-2023 Functional Status Assistive Device None A [facility] 08-05-2023 Functional Status Environmental Safety Implemented Adequate room lighting, Bed in low position, Call device within reach [facility] 08-05-2023 Functional Status Standard Safet y ID band on, Call device within reach, Bed in low position, Wheels locked [facility] Functional observable [facility] NEGATED: Highlighted row Functional performance Functional status health issues are not documented Disease [facility] Work Phone: Mental Status Date Assessment Result Facility 08-05-2023 Mental Status Orientation Orie nted x 4 [facility] 08-05-2023 [facility] 01-05-2022 Cognitive functi ons [id number] [facility] NEGATED: Highlighted row Cognitive function [Interpretation] Cognitive status health issues are not documented Disease [facility] Work Phone: Clinical Notes 04-30-2021 to 12-13-2024 Note Date & Type Note Facility 12-13-2024 Progress note [facility] 12-08-2024 Progress note [facility] 12-04-2024 Radiology Diagnostic study note [facility] [address] [place] [address] OB Biophysical Prof W/O NST MR#: [id number] Acct: [id number] Name: SHU GASPAR Rep #: [id number] : 1990 F 33 From: Derrick Mckinney MD PCP: Dr. Judie Bella MD Status: REG CLI Study:OB Biophysical Prof W/O NST Date of Exa m: 11/30/24 Exam# [id number] Ordering Dr: Carmen Perdomo CNM PROCEDURE: OB BIOPHYSICAL PROF W/O NST 11/30/2024 REASON FOR EXAM: 33WK BPP, WELLBEING TECHNIQUE: Procedure Code: USBIOWO Modality: US Procedure: OB BIOPHYSICAL PROF W/O NST COMPARISON: November 20, 2024 FINDINGS heart rate = 150 beats per minute position = transverse right age by LMP = 33 weeks 4 days, 01/14/2025 Breathing movement equal 2 Gross body movement equal 2 tone equals 2 Amniotic fluid volume equal 2 Total score = 8/8 JOHN = 15.3 Placenta grade = 1 US/OB Biophysical Prof W/O NST IMPRESSION: Biophysical profile = 10/13. Reading Location: [place] CC: AMIE Perdomo; Dr. Judie Bella MD ~ Community Nutrition Educator: Signed [facility] 11-30-2024 Progress note [facility] 11-23-2024 Progress note [facility] 11-21-2024 Radiology Diagnostic study note [facility] Services [address] [place] [address] OB Limited With Biometrics MR#: [id number] Acct: [id number] Name: SHU GASPAR Rep #: [id number] : 1990 F 33 From: Iron Reaves MD PCP: Dr. Judie Bella MD Status: REG CLI Study:OB Limited With Biometrics Date of Exam : 11/20/24 Exam# [id number] Ordering Dr: Carmen Perdomo CNM PROCEDURE: OB LIMITED WITH BIOMETRICS 11/20/2024 REASON FOR EXAM: 32WK GROWTH US TECHNIQUE: Procedure Code: USOBGROWTH Modality: US Procedure: OB LIMITED WITH BIOMETRICS COMPARISON: None FINDINGS Number: 1 Position: Breech Placental Position: Posterior and not low-lying Placental Abnormalities: No evidence of previa. DIMENSIONS: Biparietal Diameter: 7.9 cm: 31 weeks and 5 days: 28 percentile./ Head Circumference: 31 cm: 34 weeks and 4 days: 79 percentile/ Abdominal Circumference: 29.7 cm: 33 weeks and 5 days: 88 percentile/ Femur Length: 5.8 cm: 30 weeks and 3 days: 5th percentile/ ESTIMATED WEIGHT: 2023 g plus/-209 9 g ESTIMATED WEIGHT PERCENTILE (24+ weeks): 56 percentile ESTIMATED GESTATIONAL AGE: Baseline: 32 weeks and 1 day By Ultrasound: 33 weeks and 2 days ESTIMATED DATE OF DELIVERY: Baseline: January 14, 2025 By Ultrasound: January 06, 2025 BIOPHYSICAL ASSESSMENT: Amniotic Fluid Volume: 5.8 cm Amniotic Fluid Index: 16 point 2 cm (8-24 cm normal range) Cardiac Motion: (average) Trunk and Limb Motion: Present. MATERNAL ANATOMY: Adnexa: Neither maternal ovary is successfully identified. US/OB Limited With Biometrics IMPRESSION: Single live intrauterine gestation with a mean gestational age of 33 weeks and 2days. Reading Location: [place] [address] CC: AMIE Perdomo; Dr. Judie Bella MD ~ Community Nutrition Educator: Signed [facility] 11-21-2024 Radiology Diagnostic study note [facility] Imaging Services [address] [place] [address] OB Biophysical Prof W/O NST MR#: [id number] Acct: [id number] Name: SHU GASPAR Rep #: [id number] : 1990 F 33 From: Iron Reaves MD PCP: Dr. Judie Bella MD Status: REG CLI Study:OB Biophysical Prof W/O NST Date of Exa m: 11/20/24 Exam# [id number] Ordering Dr: Carmen Perdomo CNM PROCEDURE: OB BIOPHYSICAL PROF W/O NST 11/20/2024 REASON FOR EXAM: 32WK BPP, WELLBEING TECHNIQUE: Procedure Code: USBIOWO Modality: US Procedure: OB BIOPHYSICAL PROF W/O NST COMPARISON: None FINDINGS Number: 1 Position: Breech Placental Position: Posterior and not low-lying. Placental Abnormalities: No evidence of previa. ESTIMATED GESTATIONAL AGE: Baseline: 32 weeks and 1 day ESTIMATED DATE OF DELIVERY: Baseline: January 14, 2025 BIOPHYSICAL ASSESSMENT: Amniotic Fluid Volume: 3.9 cm Amniotic Fluid Index: 15.9 cm (8-24 cm normal range) Cardiac Motion: 132 beats per minute (average) Trunk and Limb Motion: Present. MATERNAL ANATOMY: Adnexa: Neither maternal ovary is successfully identified. Biophysical profile: Breathing movements: 2 Gross body movements: 2 tone: 2 Amniotic fluid volume: 2 Total score: 8/8 US/OB Biophysical Prof W/O NST IMPRESSION: Normal biophysical profile score of 8/8. Reading Location: [place] [address] CC: AMIE Perdomo; Dr. Judie Bella MD ~ Community Nutrition Educator: Signed [facility] 10-30-2024 Progress note [facility] 10-30-2024 Progress note Note Date/Time October 30, 2024 2:14pm [facility] [address], [address] [place] [address] OFFICE VISIT Date of Service: 10/30/24 MR#: [id number] Acct: [id number] Name: SHU GASPAR Rep #: [id number] : 1990 Provider: AMIE Perdomo Age/Sex: 33/F Location: [facility] Status: Signed Intake Vital Signs 09/01/24 14:59 10/02/24 09:42 10/30/24 13:49 Height 5 ft 2 in 5 ft 2 in 5 ft 2 in Weight: 265 lb 6 oz 268 lb 5 oz BMI 48.5 49.1 BP 124/83 H 120/83 H Intake Visit Reasons: 28wk ob/glucose 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 JV- planning to stop metform in and do glucola at 26-28 weeks. continue baby asa and metoprolol. plan weekly testing @ 32 weeks, deliver at 37-38 weeks.prefers community relations manager delivery if possible! 09/01/24 -?-?-?-?-?-?-?-?-?-?-?-?- 20w 5d [...] vb/lof/ctx. good fm. glucose discussed. reviewed US 08/25/25 -?-?-?-?-?-?-?-?-?-?-?-?- 29w 1d 268 lb 5 oz [...] and Symptoms of Preeclampsia, Feeding No , [place] Education and Family Medical Leave or Disability [...] [place] CNM> Date _ Carmen Perdom[facility] CNM [facility] Signature: Date (if applicable) CC: ~ [facility] Work Phone: 1([phone]) 785-307407-28-2025 Progress [facility] [address] [place] [address], [address] [place] [address] OFFICE VISIT Date of Service: 10/02/24 MR#: [id number] Acct: [id number] Name: SHU GASPAR Rep #: [id number] : 1990 Provider: AMIE Perdomo Age/Sex: 33/F Location: [facility] Status: Signed Intake Vital Signs 07/06/24 15:06 09/01/24 14:59 10/02/24 09:42 Height 5 ft 2 in 5 ft 2 in 5 ft 2 in Weight: 265 lb 6 oz BMI 48.5 BP 124/83 H Intake Visit Reasons: 24 wk ob Chief Complaint: 24wk OB 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 Date Name GA/Weeks Outcome Route Bth Weight Infant Gen Labor Lgth Anesthesia Del Locatn Provider FOB 01/05/22 [place] 39 live - full term 7lbs 8oz [...] 123/85 -?-?-?-?-?-?-?-?-?-?-?-?- 168 -?-?-?-?-?-?-?-?-?-?-?-?- SM- no vb zacharyi elaina will get new ob labs today 08/02/24 [...] between 32-34 weeks, deliver at 37-38 weeks.prefers community relations manager delivery if possible! JV- planning to stop metform in and do glucola at 26-28 weeks. continue baby asa and metoprolol. plan weekly testing @ 32 weeks, deliver at 37-38 weeks.prefers community relations manager delivery if possible! 09/01/24 -?-?-?-?-?-?-?-?-?-?-?-?- 20w 5d [...] and Symptoms of Preeclampsia, Feeding No , [place] Education and Family Medical Leave or Disability [...] 10/02/24 1002 s AMIE> Date _ Carmen Perdomo CNM [employer] Signature: Date (if applicable) CC: ~ [facility]06-27-2025 Evaluation note* Diagnosis Onset Date Resolution Status Admit Date Acute thoracic myofascial strain acute September 01, 2024 2:51pm AMA (advanced maternal age) multigravida 35+ acute September 01, 2024 2:51pm Depression acute September 01 2:51pm Herpes simplex type 2 infection acute September 01, 2024 2:51pm Obesity affecting acute September 01, 2024 2:51pm Polycystic disease, ovaries acute September 01, 2024 2:51pm acute September 01 2:51pm Supervision of high-risk acute September 01, 2024 2:51pm Hypertension chronic September 01, 025 2:51pm Acute thoracic myofascial strain acute October 02, 2024 9:38am AMA (advanced maternal age) multigravida 35+ acute October 02, 2024 9:38am Depression acute October 02 9:38am Herpes simplex type 2 infection acute October 02, 2024 9:38am Obesity affecting acute October 02, 2024 9:38am Polycystic disease, ovaries acute October 02, 2024 9:38am acute October 02 9:38am Supervision of high-risk acute October 02, 2024 9:38am Hypertension chronic October 02, 9:38am Acute thoracic myofascial strain acute October 30 1:40pm AMA (advanced maternal age) multigravida 35+ acute October 30 1:40pm Depression acute October 30, 025 1:40pm Herpes simplex type 2 infection acute October 30 1:40pm Obesity affecting October 30, 2024 1:40pm Polycystic disease, ovaries acute October 30, 2024 1:40pm acute October 30, 1:40pm Supervision of high-risk acute October 30 1:40pm Hypertension chronic October 30, 2024 1:40pm Abnormal glucose affecting acute November 23, 2024 9:16am Acute thoracic myofascial strain acute November 23, 2024 9:16am AMA (advanced maternal age) multigravida 35+ acute November 23, 2024 9:16am Depression acute November 9:16am Herpes simplex type 2 infection acute November 23, 2024 9:16am Obesity affecting acute November 23, 2024 9:16am Polycystic disease, ovaries acute November 23, 2024 9:16am acute November 9:16am Supervision of high-risk acute November 23, 2024 9:16am Hypertension chronic November 232024 9:16am Abnormal glucose affecting acute November 30, 2024 9:39am AMA (advanced maternal age) multigravida 35+ acute November 30, 2024 9:39am Depression acute November 9:39am Herpes simplex type 2 infection acute November 30, 2024 9:39am Obesity affecting acute November 30, 2024 9:39am acute November 9:39am Supervision of high-risk acute November 30, 2024 9:39am Hypertension chronic November 302024 9:39[facility] Work Phone: 1([phone]) 589-112506-27-2025 Evaluation note* Diagnosis Onset Date Resolution Status Admit Date Acute thoracic myofascial strain acute September 01, 2024 2:51pm AMA (advanced maternal age) multigravida 35+ acute September 01, 2024 2:51pm Depression acute September 01 2:51pm Herpes simplex type 2 infection acute September 01, 2024 2:51pm Obesity affecting acute September 01, 2024 2:51pm Polycystic disease, ovaries acute September 01, 2024 2:51pm acute September 01 2:51pm Supervision of high-risk acute September 01, 2024 2:51pm Hypertension chronic September 01 025 2:51pm Acute thoracic myofascial strain acute October 02, 2024 9:38am AMA (advanced maternal age) multigravida 35+ acute October 02, 2024 9:38am Depression acute October 02 9:38am Herpes simplex type 2 infection acute October 02, 2024 9:38am Obesity affecting acute [...] 025 1:40pm Herpes simplex type 2 infection acute October 30 1:40pm Obesity affecting acute October 30, 2024 1:40pm Polycystic disease, ovaries acute October 30, 2024 1:40pm acute October 30, 2 025 1:40pm Supervision of high-risk acute October 30 1:40pm Hypertension chronic October 30, 2024 1:40pm Abnormal glucose affecting acute November 23, 2024 9:16am Acute thoracic myofascial strain acute November 23, 2024 9:16am AMA (advanced maternal age) multigravida 35+ acute November 23, 2024 9:16am Depression acute November 9:16am Herpes simplex type 2 infection acute November 23, 2024 9:16am Obesity affecting acute November 23, 2024 9:16am Polycystic disease, ovaries acute November 23, 2024 9:16am acute November 9:16am Supervision of high-risk acute November 23, 2024 9:16am Hypertension chronic November 232024 9:16am Abnormal glucose affecting acute November 30, 2024 9:39am AMA (advanced maternal age) multigravida 35+ acute November 30, 2024 9:39am Depression acute November 9:39am Herpes simplex type 2 infection acute November 30, 2024 9:39am Obesity affecting acute November 30, 2024 9:39am acute November 9:39am Supervision of high-risk acute November 30, 2024 9:39am Hypertension chronic November 302024 9:39am Abnormal glucose affecting acute December 08 8:47am Acute thoracic myofascial strain acute December 08 8:47am AMA (advanced maternal age) multigravida 35+ acute December 08, 25 8:47am Depression acute December 08, 025 8:47am Herpes simplex type 2 infection acute December 08 8:47am Obesity affecting acute December 08, 2024 8:47am Polycystic disease, ovaries acute December 08, 2024 8:47am acute December 08, 025 8:47am Supervision of high-risk acute December 08 8:47am Hypertension chronic December 08, 2024 8:47am [facility] Work Phone: 1(958) 936-716406-27-2025 Evaluation note* Diagnosis Onset Date Resolution Status Admit Date Acute thoracic myofascial strain acute September 01, 2024 2:51pm AMA (advanced maternal age) multigravida 35+ acute September 01, 2024 2:51pm Depression acute September 01 2:51pm Herpes simplex type 2 infection acute September 01, 2024 2:51pm Obesity affecting acute September 01, 2024 2:51pm Polycystic disease, ovaries acute September 01, 2024 2:51pm acute September 01 2:51pm Supervision of high-risk acute September 01, 2024 2:51pm Hypertension chronic September 01, 025 2:51pm Acute thoracic myofascial strain acute October 02, 2024 9:38am AMA (advanced maternal age) multigravida 35+ acute October 02, 2024 9:38am Depression acute October 02 9:38am Herpes simplex type 2 infection acute October 02, 2024 9:38am Obesity affecting acute October 02, 2024 9:38am Polycystic disease, ovaries acute October 02, 2024 9:38am acute October 02 9:38am Supervision of high-risk acute October 02, 2024 9:38am Hypertension chronic October 02, 025 9:38am Acute thoracic myofascial strain acute October 30 1:40pm AMA (advanced maternal age) multigravida 35+ acute October 30 1:40pm Depression acute October 30, 025 1:40pm Herpes simplex type 2 infection acute October 30 1:40pm Obesity affecting acute October 30, 2024 1:40pm Polycystic disease, ovaries acute October 30, 2024 1:40pm acute October 30, 025 1:40pm Supervision of high-risk acute October 30 1:40pm Hypertension chronic October 30, 2024 1:40pm Abnormal glucose affecting acute November 23, 2024 9:16am Acute thoracic myofascial strain acute November 23, 2024 9:16am AMA (advanced maternal age) multigravida 35+ acute November 23, 2024 9:16am Depression acute November 9:16am Herpes simplex type 2 infection acute November 23, 2024 9:16am Obesity affecting acute November 23, 2024 9:16am Polycystic disease, ovaries acute November 23, 2024 9:16am acute November 9:16am Supervision of high-risk acute November 23, 2024 9:16am Hypertension chronic November 232024 9:16am Abnormal glucose affecting acute November 30, 2024 9:39am AMA (advanced maternal age) multigravida 35+ acute November 30, 2024 9:39am Depression acute November 9:39am Herpes simplex type 2 infection acute November 30, 2024 9:39am Obesity affecting acute November 30, 2024 9:39am acute November 9:39am Supervision of high-risk acute November 30, 2024 9:39am Hypertension chronic November 302024 9:39am Abnormal glucose affecting acute December 08 8:47am Acute thoracic myofascial strain acute December 08 8:47am AMA (advanced maternal age) multigravida 35+ acute December 08 8:47am Depression acute December 08, 025 8:47am Herpes simplex type 2 infection acute December 08 8:47am Obesity affecting acute December 08, 2024 8:47am Polycystic disease, ovaries acute December 08, 2024 8:47am acute December 08 025 8:47am Supervision of high-risk acute December 08 8:47am Hypertension chronic December 08, 2024 8:47am Abnormal glucose affecting acute December 13 9:15am Acute thoracic myofascial strain acute December 13 9:15am AMA (advanced maternal age) multigravida 35+ acute December 13 9:15am Breech presentation acute 2024 9:15am Depression acute December 13 9:15am Herpes simplex type 2 infection acute December 13 9:15am Obesity affecting acute December 13, 2024 9:15am Polycystic disease, ovaries acute December 13, 2024 9:15am acute December 13 9:15am Supervision of high-risk acute December 13 9:15am Hypertension chronic December 13, 2024 9:15am [facility] Work Phone: 1([phone]) 304-176305-28-2025 Evaluation note* Diagnosis Onset Date Resolution Status Admit Date Acute thoracic myofascial strain acute August 02, [...] 01, 2024 2:51pm Hypertension chronic September 01, 025 2:51pm Acute thoracic myofascial strain acute [...] 1:40pm Hypertension chronic October 30, 2024 1:40pm [facility] Work Phone: 1([phone]) 753-965505-28-2025 Evaluation note* Diagnosis Onset Date Resolution Status Admit Date Acute thoracic myofascial strain acute August 02, [...] 01 2:51pm Herpes simplex type 2 infection acute September 01, 2024 2:51pm Obesity affecting acute [...] 02 9:38am Herpes simplex type 2 infection acute October 02, 2024 9:38am Obesity affecting acute [...] 025 1:40pm Herpes simplex type 2 infection acute October 30 1:40pm Obesity affecting acute October 30, 2024 1:40pm Polycystic disease, ovaries acute October 30, 2024 1:40pm acute October 30, 2 025 1:40pm Supervision of high-risk acute October 30 1:40pm Hypertension chronic October 30, 2024 1:40pm Abnormal glucose affecting acute November 23, 2024 9:16am Acute thoracic myofascial strain acute November 23, 2024 9:16am AMA (advanced maternal age) multigravida 35+ acute November 23, 2024 9:16am Depression acute November 9:16am Herpes simplex type 2 infection acute November 23, 2024 9:16am Obesity affecting acute November 23, 2024 9:16am Polycystic disease, ovaries acute November 23, 2024 9:16am acute November 9:16am Supervision of high-risk acute November 23, 2024 9:16am Hypertension chronic November 232024 9:16am [facility] Work Phone: 1(838) 440-845505-28-2025 Progress [facility] [address] [place] [address], [address] [place] [address] OFFICE VISIT Date of Service: 08/02/24 MR#: [id number] Acct: [id number] Name: SHU GASPAR Rep #: [id number] : 1990 Provider: Dr. 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 Date Name GA/Weeks Outcome Route Bth Weight Gen Labor Lgth Anesthesia Del Locatn Provider FOB 01/05/22 [place] 39 live - full term 7lbs 8oz Male e pidural [facility] Delivery Date: 01/05/22 Last Updated by: Andressa Schmitz, RN HTN during labor..(no pre-e but now [...] between 32-34 weeks, deliver at 37-38 weeks.prefers community relations manager delivery if possible! JV- planning to stop metform in and do glucola at 26-28 weeks. continue baby asa and metoprolol. plan weekly testing @ 32 weeks, deliver at 37-38 weeks.prefers community relations manager delivery if possible! ACOG First Trimester First [...] Brittany DO> Date _ Anh Song DO [facility] Signature: Date (if applicable) CC: ~ [facility]05-01-2025 Evaluation note* Diagnosis Onset Date Resolution Status [...] AMA (advanced maternal age) multigravida 35+ acute [place] 25th, 20 25 1:40pm Depression acute [place] 25th, 2 025 1:40pm Herpes simplex type 2 infection acut e October 30, 2024 1:40pm Obesity affecting acute October 30, 2024 1:40pm Polycystic disease, ovaries acute October 30, 2024 1:40pm acute October 30, 2 025 1:40pm Supervision of high-risk acute October 30 1:40pm Hypertension chronic October 30, 2024 1:40pm [facility] Work Phone: 1([phone]) 175-576104-04-2025 Evaluation note* Diagnosis Onset Date Resolution Status [...] Hypertension chronic September 01, 2 025 2:51pm [facility] Work Phone: [phone]) [phone] Evaluation note* Diagnosis Onset Date Resolution Status [...] Hypertension chronic October 02, 2 025 9:38am [facility] Work Phone: [phone]) [phone] NotePap Smear Specimen AdequacyFebruary 2024 5:33pmComment.Satisfactory for evaluation. Endocervical and/or squamous metaplasticcells (endocervical component)are present.[facility] INTER[facility]ACED A#[id number] Healthcare System GlenbeighComment on above:Satisfactory for evaluation. Endocervical and/or squamous metaplasticcells (endocervical component)are present.05-03-2024 NotePap Smear Specimen AdequacyFebruary 2024 5:33pmComment.Satisfactory for evaluation. Endocervical and/or squamous metaplasticcells (endocervical component)are present.[facility] INTER[facility]ED A#[id number] Healthcare System GlenbeighComment on above:Satisfactory for evaluation. Endocervical and/or squamous metaplasticcells (endocervical component)are present.05-03-2024 Evaluation note* Diagnosis Onset Date Resolution Status Admit Date Encounter for routine gynecological examination noneactive Februa 2024 11:53am [facility] Work Phone: [phone]) 257-282202-26-2025 Evaluation note* Diagnosis Onset Date Resolution Status [...] Hypertension chronic June 09, 2 025 1:05pm [facility] Work Phone: 1([phone]) 136-920502-26-2025 Evaluation note* Diagnosis Onset Date Resolution Status [...] 2: 57pm Hypertension chronic July 06 2:57pm [facility] Work Phone: [phone]) [phone] Evaluation note* Diagnosis Onset Date Resolution Status [...] 1 0:59am Hypertension chronic August 02 10:59am [facility] Work Phone: 1([phone]) 112-733905-31-2024 Hospital Discharge instructions Patient Education 08/05/2023 22:03:47 [...] or as directed by your healthcare provider [phone] [employer]. [address] [place] [address]. All rights reserved. This information is not intended as a substitute for professional medical care. Always follow yourhealthcare professional's instructions. Follow Up Care 08/05/2023 15:51:25 With:Follow up with primary care provider Address:Unknown When:2-4 days [facility] 05-30-2024 Note Discharge Instructions Thank you for allowing [facility] to assist you with your healthcare needs. [...] or as directed by your healthcare provider [phone] [employer]. [address] [place] [address]. All rights reserved. This information is not intended as a substitute for professional medical care. Always follow yourhealthcare professional's instructions. Additional Information VACCINATE! IT SAVES LIVES! Members of the community who have not yet received the COVID-19 vaccine and would like to receive it can visit one of [facility] vaccine clinics. There are many vaccine clinic locations within the [facility]. For locations and available times, please visit [email or web address] It is important to note that some COVID mobile vaccine clinics are held outdoors and may be canceled in rainy or stormy conditions. To learn more about pediatric vaccinations (ages 5-11), we invite you to visit the [facility] webpage. [email or web address]/[email or web address] [email or web address].htmlTo learn more about the COVID-19 vaccine, we invite you to visit the CDC website for a list of frequently asked questions. https://www.cdc.gov/coronavirus/2019-ncov/vaccines/faq.html [employer] Patient Portal Access Instructions: Stay connected with your healthcare team and access your personal medical information anytime with the [employer] Patient Portal. If you would like a full copy of your medical records please contact the [facility] Medical Records Department Wednesday through Wednesday between 8a.m. and 4:30p.m. Please follow the directions below to access the portal: 1.Access the email account you provided upon registration to the [facility].2.Look for an invitation email from [facility].3.Open the email and access the invitation link: Accept Invitation to ValentineScreenhero4.Fill in the required [place] to create your account. Sign into [email or web address] with your username and password that you [...] you will allow to register on the [employer] Patient Portal for access to your information. You can also access the [employer] Patient Portal on the [employer] nehemias. Simply click on Health Records under StreetSpark and then click on the [employer] logo. HOW TO SAFELY DISPOSE OF PRESCRIPTION [...] Call your local pharmacy or go to [email or web address] It In [email or web address] to find one close to you.3.Make use of household items: Use cat litter or old coffee grounds to dispose medications if other options arenot available. Mix your drugs with these household products, seal them in an airtight container andthrow it into the garbage. Call [facility]: [phone] to be sure your drugs can be [...] been reviewed and explained to me and I,HSU GASPAR understand my current condition and have read and understand these discharge instructions. I have received a written copy of the plan/instructions. If I have questions, I am aware that I should contact my doctor. Patient/Manual Tester Signature: Date/Time: Relationship to Patient: Witness Name/Signature: Date/Time: [facility]05-30-2024 Note ORIGINAL EXAMINATION: CTA OF THE CHEST [...] Date: 08/05/2023 9:17:05 PM Ordering Provider: DARIUS [facility]05-30-2024 Note ORIGINAL EXAMINATION: ONE XRAY VIEW OF [...] Date: 08/05/2023 5:14:52 PM Ordering Provider: DARIUS [facility]05-30-2024 NoteSinus rhythm Consider anterior infarct Electronic Signature: DARIUS KAUFMAN MD 08/05/2023 16:34:46[facility] 12-20-2022 Chief complaint Narrative - Reported* An interactive audio and video telecommunication system which permits real time communications between the patient (at the originating site) and provider (at the distant site) was utilized to providethis telehealth service. * Verbal consent was requested and obtained from SHU GASPAR on this date, 02/24/2022 12:30 PM , for a telehealth visit. [place] [address] DO Work Phone: 1(568) 809-794412-20-2022 Chief complaint Narrative - Reported* An interactive audio and video telecommunication system which permits real time communications between the patient (at the originating site) and provider (at the distant site) was utilized to providethis telehealth service. * Verbal consent was requested and obtained from SHU GASPAR on this date, 02/24/2022 12:30 PM , for a telehealth visit. HT-Ihkvenkczu-Fpdncvg 1200 DO Work Phone: 1(620) 414-415312-02-2022 History of Present illness Narrative* Pt. to [...] had her first menstrual cycle * 02/13/22 KE-YJQGP-Eipvpraf 2420 DO Work Phone: 1(458) 347-308111-02-2022 NoteSend Summary: Note Recipients: Discharge: Summary: Admission Date: .04-Jan-2022 08:18:00 Discharge Date: 07-Jan-2022 Attending Physician at Discharge: Yasmin Lackey Admission Reason: IOL Final Discharge Diagnoses: (normal spontaneous vaginal delivery) Procedures: none Condition at Discharge: Satisfactory Disposition at Discharge: .Home Vital Signs: T PRBPMAPSpO2 Value36.09153022/286726% Date/Time01/07 8: 8: 8: 8: 8: 8:05 Range(36C - 36.8C ) (75 - 93 ) (16 - 20 ) (111 - 137 )/ (70 - 90 ) (84 - 106 ) (95% - 98% ) Date: Weight/Scale Type:Height: 30-Dec-2021 08:02754 kg / falncwqx504.4 cm Physical Exam: General: well appearing, well-nourished, [...] home Maternal Well-Being - emotional support provided [place] Feeding - /pumping encouraged; consult prn notable [...] 05-Jan-2022 09:17:00 Radiology Results - Pending: None [place] Suicide Risk: negative Discharge Instructions: Activity: Return [...] discharge: Full Code Electronic Signatures: Yasmin Lackey (INSURANCE BILLING SPECIALIST-QUALITY ASSURANCE ASSISTANT) (Signed 07-Jan-2022 09:54) Authored: Send Summary, Summary Content, Immunizations, Ongoing Care, DNR Status, Note Completion Last Updated: 07-Jan-2022 09:54 by Yasmin Lackey (INSURANCE BILLING SPECIALIST-QUALITY ASSURANCE ASSISTANT)[facility]10-31-2022 History of Present illness Narrative* The patient is being seen for follow up. The patient is status post vaginal delivery. Obs tetrical complications include pre-eclampsia and After delivery. Delivery date was 01.05.22. The baby is a boy. The baby's name is Chad. weight was 7 lbs, 8 oz. [place] complications includerespiratory distress. He was circumcised. The [...] BID. No h/o CHTN prior to . FR-GOTEX-Rbqimspa 2384 DO Work Phone: 1(167) 310-985910-31-2022 NoteProvider Information: Maternal Delivery Information: Delivery Type: [...] without a resident Electronic Signatures: Tameka Gonsalves ([facility]) (Signed 05-Jan-2022 07:31) Authored: Provider Information, Hemorrhage Risk, Note Completion Last Updated: 05-Jan-2022 07:31 by Tameka Gonsalevs ([facility]) References: 1. Data Referenced From History and Physical - OB 04-Jan-2022 09:54[facility]10-30-2022 NoteClinical Event: Clinical Event Note: Topiclabor [...] a good contraction pattern Will anticipate Grace Vagi, INSURANCE BILLING SPECIALIST CNM Electronic Signatures: Grace Valdez (MAGALY-JASPAL) (Signed 04-Jan-2022 17:17) Authored: Clinical Event Note Last Updated: 04-Jan-2022 17:17 by Grace Valdez (MAGALY-JASPAL)[facility]10-30-2022 NoteClinical Event: Clinical Event Note: Topiclabor [...] Valdez APRN CNM Electronic Signatures: Grace Valdez (INSURANCE BILLING SPECIALIST[facility]) (Signed 04-Jan-2022 13:16) Authored: Clinical Event Note Last Updated: 04-Jan-2022 13:16 by Grace Valdez (MAGALY-CN)[facility]10-30-2022 NoteHPI/OB History: Care Provider: Tom Bull HPI Descriptive Info: HPI 31 year old @ [...] obesity, anxiety PSH: Gallbladder 2012 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: 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 hx: PCOS, HPV OBHx: n/a Fam hx: Meds: Lexapro, ASA, PNV, Valtrex Social hx: Denies ETOH, drugs, tobacco Labs: Labs: Labs: Blood Typed Date: 13-Jun-2021 Blood Type: A positive Antibody Screen Results: negative Chlamydia Date: 13-Jun-2021 Chlamydia Results: negative Gonorrhea Date: 13-Jun-2021 Gonorrhea Results: negative Group B Strep Date: 12-Dec-2021 Strep Results: negative GCT (): 03-Oct-2021 GCT result: 116 HBsAG Date: 13-Jun-2021 HBsAG Results: negative Hemoglobin A1C (-): 13-Jun-2021 Hemoglobin A1C: 5.2 % Estimated Average Glucose: 103 HIV Date: 13-Jun-2021 HIV Results: negative Rubella Date: 03-Oct-2021 Rubella Results: nonimmune Rubella Comments: Result Value Negative Syphilis (y): 03-Oct-2021 Syphilis Results: negative Antepartum/: Antepartum/PP: Date Earliest Ffunbzofgl50-Lcm-2286 EGA at that study (weeks)8.5 SLIME by [id number] Final [id number] Current EGA:39.2 Patient is > or = [...] Itching, Gynecomastia Objective: Objective Information: T PRBPMAPSpO2 Value36.97671848/1907905% Date/Time01/04 8: 8: 8: 8: 8: 8:45 [...] negative for lesions Res (more content not included)...[facility]04-08-2022 Note Date of Procedure: 06/13/2021 Pathologist: [facility], Cytology Date Reported: 06/24/2021 Date Received: [...] Range: Negative Slide(s) initially screened by a Solar Pv Installer at [facility], [address] [place] [address] Testing for high-risk (HR) type of human [...] verified by the Molecular Diagnostic Laboratory at [facility]. The lab is certified under the Clinical Laboratory Amendments of 1988 (CLIA 88) as qualified to perform high complexity clinical laboratory testing. This specimen has been analyzed by the SL8Z | CrowdSourced RecruitingPrep Imaging System ([employer] an automated imaging and review system, which assists the laboratory in evaluating cells on ThinPrep Pap tests. Following automated imaging, selected [place] from every slide were reviewed by a metal framer and/or pathologist. Electronically Signed Out By [facility], Cytology//JMD By the signature on this [...] Source of Specimen A: THINPREP PAP CERVICAL [facility] Department of Pathology [id number] [address]Comment on above:Performed By: #### C #### [facility] Cytology [address] [facility] [id number] History of Present illness Narrative* 31 yo MFG1P! referred by OB. PMH May 2021, in September 2021. together for one yr. Working on [employer] Employee * Delivered baby boyChad, 01/05/22, [...] and parents one hour away. is fantastic. Axson like want to escape, no SI/HI. Had [...] None * PSYCHOSOCIAL Hx * B/R [place] * Parents and together * Siblings middle child of siblings * Education : Ass Degree in Nursing , Ass Arts * Employed since 2014 * since September 2021 , * No legal issues SQ-Ocspgyqjjg-Baapgbn 1200 DO Work Phone: 1([phone]) 295-472403-01-2022 History of Present illness Narrative* SHU is a 31 yo MFG1P! referred by OB. PMH Hx of depression w/ SI Attempt, and anxiety treated w/ Escitalopram 20 mg since age 15 yo. in May 2021, in September 2021, together for one yr. 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 is fantastic. Axson like want to escape, no SI/HI. [place] [...] thinking self rated anxiety in past week /10 , gets anxious if baby not getting [...] side attempts SI * Completed suicides in [place] None * PSYCHOSOCIAL Hx * [place]/R [place] * Parents and together * Siblings middle child of siblings * Education : Ass Degree in Nursing , Ass Arts * Employed since 2014 * since September 2021 , * No legal issues MY-Zjvihilhol-Iirujks 1200 DO Work Phone: 1(278) 444-743602-23-2022 History of Present illness Narrative1) Pt presents today stating she took a test 04/30/21 and it was positive. She states shethinks she has a yeast infection, she states it is itchy.[facility] Work Phone: Evaluation + Plan note No data available for this section [facility] Evaluation noteN/ADept. 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 Evaluation note* Breast: [...] or erythemaPsychological: appropriate affect, interactiveConstitutional: alert, oriented [facility] noteNo assessment information available [facility] Work Phone: History of Present illness Narrative* The patient is being seen for follow-up of obesity. The patient reports doing well and a weight loss of 6 pounds. * HEALTH MAINTENANCE - * FLU: utd * COVID (Moderna, Pfizer): [facility]d [facility] Work Phone: History of Present illness Narrative* The patient is being seen for follow-up of obesity. The patient reports doing well and a weight loss of 6 pounds. * HEALTH MAINTENANCE - * FLU: utd * COVID (Moderna, Pfizer): [facility]d [facility] Work Phone: History of Present illness Narrative* [...] time off per month is patient requesting? [facility]ident [facility] Work Phone: History of Present illness Narrative* [...] time off per month is patient requesting? [facility] Work Phone: History of Present illness NarrativeThe patient is being seen for initiating contraception. Patient goals include prevention.The patient is currently asymptomatic.[facility] Work Phone: Hospital Discharge instructions* Activity:Return to normal [...] Gold Form - Other Clinicians:Nursing Instructions: The [place] [employer] recommends that pacifier use [...] Get Care for These POST- Warning Signs [facility] Additional Instructions Call tomorrow to schedule appt for Wednesday OB BP check with [facility] to [facility] or call occupational medicine specialist OB doctor if: JEFFERS is unresolved, visual dist, right upper abdomenal pain, or rapid weight gain from swelling. Check BP at home: AM, afternoon, and evening. If >160/110 return to hosp metal fabricating supervisor Rx at [facility] for Labetelol 100 mg take in AM and PM. Fiorcet for headache. Fiorcet has tylenol so don't take more than 4 Grams of Tylenol daily to prevent liver damage.[facility] Work Phone: Hospital Discharge instructionsAdditional Instructions keep scheduled appointments for next week.[facility] Work Phone: Progress note Author Anh Soto [facility] Note Date/Time August 02, 2024 11:33 am [facility] [address] [place] [address], [address] [place] [address] OFFICE VISIT Date of Service: 08/02/24 MR#: [id number] Acct: [id number] Name: SHU GASPAR Rep #: [id number] : 1990 Provider: Dr. Juana Snog, Age/Sex: 33/F Location: [facility] Status: Signed Intake Vital Signs 06/09/24 13:11 07/06/24 15:06 08/02/24 11:02 08/02/24 11:04 Height 5 ft 2 in 5 ft 2 in 5 ft 2 in 5 ft 2 in Weight: 266 lb BMI 48.6 BP 118/75 Intake Visit Reasons: 16wk ob Floor Coverings Salesperson Required: No Is patient in pain?: No Allergies No Known Allergies Allergy (Verified 08/02/24 11:02) Medications ?Medication ?Instructions ?Recorded ?Confirmed ?Type sebewnas-zvj-Fh-FA 1 mg tab PO 01/11/2208/02 History tablet [...] physical activity do you participate in: none baylee/amish: None seatbelt use: always do you feel safe at home: Yes additional social history: : Parth Leggett History 2 Elective abortions Hx Para 1 Spontaneous abortions Hx # Term Pregnancies 1 Ectopic pregnancies Hx # Pregnancies Multiple births # of living children 1 Past Pregnancies Del. Date Name GA/Weeks Outcome Route Bth Weight Gen Labor Lgth Anesthesia Del Locatn Provider FOB 01/05/22 [place] 39 live - full term 7lbs 8oz [...] between 32-34 weeks, deliver at 37-38 weeks.prefers community relations manager delivery if possible! JV- planning to stop metform in and do glucola at 26-28 weeks. continue baby asa and metoprolol. plan weekly testing @ 32 weeks, deliver at 37-38 weeks.prefers community relations manager delivery if possible! ACOG First Trimester First [...] Cosigner Signature: Date (if applicable) CC: ~ [facility] Work Phone: Progress note Author Carmen Perdomo [facility] Note Date/Time October 02, 2024 10:0 2am [facility] [address] [place] [address], [address] [place] [address] OFFICE VISIT Date of Service: 10/02/24 MR#: [id number] Acct: [id number] Name: SHU GASPAR Rep #: [id number] : 1990 Provider: AMIE Perdomo Age/Sex: 33/F Location: [facility] Status: Signed Intake Vital Signs 07/06/24 15:06 09/01/24 14:59 10/02/24 09:42 Height 5 ft 2 in 5 ft 2 in 5 ft 2 in Weight: 265 lb 6 oz BMI 48.5 BP 124/83 H Intake Visit Reasons: 24 wk ob Chief Complaint: 24wk OB Floor Coverings Salesperson Required: No Is patient in pain?: No Allergies No Known Allergies Allergy (Verified 10/02/24 09:40) Medications 3 ?Medication ?Instructions ?Recorded ?Confirmed ?Type gdricrla-nae-Sb-FA 1 mg tab PO 01/11/2210/02 History tablet [...] physical activity do you participate in: none baylee/amish: None seatbelt use: always do you feel [...] between 32-34 weeks, deliver at 37-38 weeks.prefers community relations manager delivery if possible! JV- planning to stop metform in and do glucola at 26-28 weeks. continue baby asa and metoprolol. plan weekly testing @ 32 weeks, deliver at 37-38 weeks.prefers community relations manager delivery if possible! 09/01/24 -?-?-?-?-?-?-?-?-?-?-?-?- 20w 5d [...] Cosigner Signature: Date (if applicable) CC: ~ [facility] Work Phone: Progress note Author Tawana Tmimons [facility] Note Date/Time November 23, 2024 10:01am [facility] [address] [place] [address], [address] [place] [address] OFFICE VISIT Date of Service: 11/23/24 MR#: [id number] Acct: [id number] Name: SHU GASPAR Rep #: [id number] : 1990 Provider: Dr. Behzad Timmons MD Age/Sex: 33/F Location: [facility] Status: Signed Intake Vital Signs 10/02/24 09:42 10/30/24 13:49 11/23/24 09:22 Height 5 ft 2 in 5 ft 2 in 5 ft 2 in Weight: 268 lb 5 oz 275 lb BMI 49.1 50.3 BP 120/83 H 114/75 Intake Visit Reasons: 32 wk ob Floor Coverings Salesperson Required: No Is patient in pain?: No Allergies No Known Allergies Allergy (Verified 11/23/24 09:26) Medications ?Medication ?Instructions ?Recorded ?Confirmed ?Type ymdxhhkp-khe-Gf-FA 1 mg tab PO 01/11/2211/23 History tablet metformin 500 mg tablet mg PO 04/21/23 11/23/24 Hist ory escitalopram oxalate 20 mg tablet 20 mg PO QDAY 11/23/24 History (Lexapro) metoprolol succinate 100 mg 100 mg PO BID 03/17/24 History tablet,extended release 24 hr valacyclovir 500 mg tablet 500 mg PO QDAY #30 tabs 11/23/24 Rx (Valtrex) Last Menstrual Period: 04/09/24 Zika: Zika virus [...] physical activity do you participate in: none baylee/amish: None seatbelt use: always do you feel safe at home: Yes additional social history: : Parth Leggett History 2 Elective abortions Hx Para 1 Spontaneous abortions Hx # Term Pregnancies 1 Ectopic pregnancies Hx # Pregnancies Multiple births # of living children 1 Past Pregnancies Del. Date Name GA/Weeks Outcome Route Bth Weight Gen Labor Lgth Anesthesia Del Locatn Provider FOB 01/05/22 [place] 39 live - full term 7lbs 8oz Male e pidural Parth Delivery Date: 01/05/22 Last Updated by: Andressa Schmitz RN HTN during labor..(no pre-e but now has chronic HTN) HPI 32 wk ob Details: SHU GASPAR is a 33 year old who presents for routine OB visit. OB Visit SLIME Calculator Estimated Delivery Date Method Current WG Current Estimate 01/14/25 LMP (Certain) 32w 4d Other Estimates 01/17/25 Ultrasound #1 32w 1d Expected Delivery Route/Plan Labor Preferences- CB/BF [...] 8 oz (-2 lb 8 oz) 123/85 -?-?-?-?-?-?-?-?-?-?-?--?- 168 -?-?-?-?-?-?-?-?-?-?-?-?- SM- no vb crmapi ng [...] between 32-34 weeks, deliver at 37-38 weeks.prefers community relations manager delivery if possible! JV- planning to stop metform in and do glucola at 26-28 weeks. continue baby asa and metoprolol. plan weekly testing @ 32 weeks, deliver at 37-38 weeks.prefers community relations manager delivery if possible! 09/01/24 -?-?-?-?-?-?-?-?-?-?-?-?- 20w 5d 259 lb 2 oz (+5 lb 2 oz) 119/86 Negative -?-?-?-?-?-?-?-?-?-?-?-?- Negative 150 -?-?-?-?-?-?-?-?-?-?-?-?- JV- no lof, vagi nal bleeding, or dec fm. normal anatomy with exception of decreased views of heart 10/02/24 -?-?-?-?-?-?-?-?-?-?-?-?- w 1d 265 lb 6 oz (+11 lb 6 oz) 124/83 Negative -?-?-?-?-?-?-?-?-?-?-?-?- Negative 145 -?-?-?-?-?-?-?-?-?-?-?-?- KW- no vb/lof/ct x. good fm. glucose discussed. KW- no vb/lof/ctx. good fm. glucose discussed. reviewed US 10/30/24 -?-?-?-?-?-?-?-?-?-?-?-?- 29w 1d 268 lb 5 oz (+14 lb 5 oz) 120/83 Negative -?-?-?-?-?-?-?-?-?-?-?--?- Negative 140 -?-?-?-?-?-?-?-?-?-?-?-?- KW- no vb/lof/ct x. good fm. glucose done today. tdap and LARC today. would like IUD PP. KW- no vb/lof/ctx. good fm. glucose done today. tdap and LARC today. would like IUD PP. BPPs and growths ordered starting at 32 weeks. 11/23/24 -?-?-?-?-?-?-?-?-?-?-?-?- 32w 4d 275 lb (+21 lb) 114/75 -?-?-?-?-?-?-?-?-?-?-?-?- 140 33 -?-?-?-?-?-?-?-?-?-?-?-?- SM-no vb lof goo d fm no regular ctx ACOG First Trimester First Trimester: Discussed Second Trimester Second Trimester: Signs and Symptoms of Labor, Selecting a care provider, Reproductive Life Planning & Contreception, Care Planning, Depression/Anxiety and Intimate Partner Violence; Discussed Tobacco Cessation Third Trimester Third Trimester: Pain Management Plans, Labor support person(s), Immediate Larc, Signs and Symptoms of Preeclampsia, Feeding No , [place] Education and Family Medical Leave or Disability Forms Immunizations Boostrix Tdap 2.5 Lf unit-8 mcg-5 Lf/0.5 mL intramuscular syringe Performing Provider: Tawana Timmons MD Performing Location: [facility] Administered by: Ade Price on 11/23/24 09:31 Dose Route Admin Location Dispensed Lot Number Expiration Date Pack age NDC NDC Pinsetter Mechanic Automatic 0.5 mL IM Right Deltoid 0.5 mL [id number] 11/05/26 [id number] SANOFI- PASTEUR VIS Given Date VIS Provided VIS Publication Date 11/23/24 Single Vaccine 24 Eligibility Eligibility Date Funding Source Not Applicable Coding Level of Care Code OB Routine Diagnoses Abnormal glucose affecting O99.810 Polycystic disease, ovaries E28.2 Obesity affecting O99.210 AMA (advanced maternal age) multigravida 35+ O09.529 Supervision of high-risk O09.90 32 weeks gestation of Z3A.32 Weeks of gestation: 32 weeks Herpes simplex type 2 infection B00.9 Hypertension I10 Acute thoracic myofascial strain S29.019A Depression F32.A Assessment and Plan Assessment and Plan (1) Abnormal glucose affecting : Status: Acute Comment: passed 3 hour (2) Polycystic disease, ovaries: Status: Acute Comment: counseled regarding continuing vs stopping metformin, patient continued last with good outcomes wants to continue this (3) Obesity affecting : Status: Acute Comment: BMI 45.4; BPPs at 34 weeks& needs anesthesia consult HgBA1C ordered w/NOB (4) AMA (advanced maternal age) multigravida 35+: Status: Acute Comment: growth at 36 (5) Supervision of high-risk : Status: Acute Comment: PRR, , SLIME 01/14/25, PC: Chad, PC: Parth (6) : Status: Acute Qualifiers: Weeks of gestation: 32 weeks Qualified Code(s): Z3A.32 - 32 weeks gestation of Comment: accept NIPT- low risk, male (7) Herpes simplex type 2 infection: Status: Acute Comment: Valtrax PRN (8) Hypertension: Status: Chronic Comment: on Metoprolol - weekly bpp's starting 32 weeks. deliver 37-38 weeks. (9) Acute thoracic myofascial strain: Status: Acute (10) Depression: Status: Acute Comment: Lexapro Orders: Orders POC Urinalysis 2 Dip (Clinic) Today Tdap Immunization Today Z23 - Encounter for immunization Medications: New valacyclovir (Valtrex) 500 mg PO QDAY 30 tabs 12RF 11/23/24 1001 <Electronically signed by Tawana ash MD> Date _ Tawana Timmons MD Cosigner Signature: Date (if applicable) CC: ~ [facility] Work Phone: Progress note Author Ade Fam [facility] Note Date/Time November 30, 2024 9:50am [facility] [address] [place] [address], [address] [place] [address] OFFICE VISIT Date of Service: 11/30/24 MR#: [id number] Acct: [id number] Name: SHU GASPAR Rep #: [id number] : 1990 Provider: ALVINA Fam Age/Sex: 33/F Location: [facility] Status: Signed Intake Vital Signs 10/30/24 13:49 11/23/24 09:22 11/30/24 09:42 11/30/24 09:44 Height 5 ft 2 in 5 ft 2 in 5 ft 2 in 5 ft 2 in Weight: 277 lb 6 oz BMI 50.7 BP 129/84 H Intake Visit Reasons: 33 WK OB Chief Complaint: 33 Week OB Floor Coverings Salesperson Required: No Is patient in pain?: No Allergies No Known Allergies Allergy (Verified 11/30/24 09:41) Medications ?Medication ?Instructions ?Recorded ?Confirmed ?Type puwuiubo-oyu-Az-FA 1 mg tab PO 01/11/2211/30 History tablet escitalopram oxalate 20 mg tablet 20 mg PO QDAY 11/30/24 History (Lexapro) metoprolol succinate 100 mg 100 mg PO BID 03/17/24 History tablet,extended release 24 hr valacyclovir 500 mg tablet 500 mg PO QDAY #30 tabs 11/30/24 Rx (Valtrex) Last Menstrual Period: 04/09/24 Zika: Zika virus [...] current occupational status: employed 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 OB Visit SLIME Calculator Estimated Delivery Date Method Current WG Current Estimate 01/14/25 LMP (Certain) 33w 4d Other Estimates 01/17/25 Ultrasound #1 33w 1d Expected Delivery Route/Plan Labor Preferences CB/BF classes: no labor support person: aPrth labor intervention preferences: [] pain management options preferred: [] cut cord/dad catch: [] : [] PP control planned: [] discussed possible routes of delivery and associated risks: [] special requests: [] Specific Issue/Plans Covid status: [] Flu vaccine: [] Tdap vaccine: given Rhogam: NA LARC form signed: yes Problem list reviewed and updated with the most current plan of care details and appropriate orders placed. Relevant counseling for the gestational age provided. Continue routine care and follow up unless otherwise noted in visit notes/problem list details Initial Weight: 254 lb Date -?-?-?-?-?-?-?-?-?-?-?-?- EGA Weight BP Urine Prot -?-?-?-?-?-?-?-?-?-?-?-?- Glucose FHR FuHt Pres Dilation -?-?-?-?--?-?-?-?-?-?-?-?- Effaced St Visit Note 06/09/24 -?-?-?-?-?-?-?-?-?-?-?-?- 8w [...] between 32-34 weeks, deliver at 37-38 weeks.prefers community relations manager delivery if possible! JV- planning to stop metform in and do glucola at 26-28 weeks. continue baby asa and metoprolol. plan weekly testing @ 32 weeks, deliver at 37-38 weeks.prefers community relations manager delivery if possible! 09/01/24 -?-?-?-?-?-?-?-?-?-?-?-?- 20w 5d [...] and growths ordered starting at 32 weeks. 11/23/24 -?-?-?-?-?-?-?-?-?-?-?-?- 32w 4d 275 lb (+21 lb) 114/75 -?-?-?-?-?-?-?-?-?-?-?-?- 140 33 -?-?-?-?-?-?-?-?-?-?-?-?- SM-no vb lof goo d fm no regular ctx 11/30/24 -?-?-?-?-?-?-?-?-?-?-?-?- 33w 4d 277 lb 6 oz (+23 lb 6 oz) 129/84 Negative -?-?-?-?-?-?-?-?-?-?-?-?- Negative 142 35 -?-?-?-?-?-?-?-?-?-?-?-?- MH-No VB, LOF. G ood FM. States passed BPP prior to this appt today ACOG First Trimester First Trimester: Discussed Second [...] no additional complaints, except as documented GI Denies abdominal pain, Denies nausea and Denies vomiting Exam Const General: cooperative Nutritional Appearance: well nourished GI Palpation: soft, nontender and other (gravid) Results POC Urinalysis 2 Dip (Clinic) Office Urine Glucose Negative Last Edit by Lisa Bustamante on 11/30/24 09 :46 Office Urine Protein Negative Last Edit by Lisa Bustamante on 11/30/24 09 :46 Coding Level of Care Code OB Routine Diagnoses Supervision of high risk in third trimester O09.93 Trimester: third trimester Hypertension, unspecified type I10 Hypertension type: unspecified 33 weeks gestation of Z3A.33 Weeks of gestation: 33 weeks Multigravida of advanced maternal age in third trimester O09.523 Trimester: third trimester Obesity affecting in third trimester, unspecified obesity type O99.213 Obesity type affecting : unspecified obesity Trimester: third trimester Abnormal glucose affecting O99.810 Herpes simplex type 2 infection B00.9 Depression, unspecified depression type F32.A Depression Type: unspecified Assessment and Plan Assessment and Plan (1) Supervision of high-risk : Status: Acute Qualifiers: Trimester: third trimester Qualified Code(s): O09.93 - Supervision of high risk , unspecified, third trimester Comment: PRR, , SLIME 01/14/25, PC: Chad, PC: Parth (2) Hypertension: Status: Chronic Qualifiers: Hypertension type: unspecified Qualified Code(s): I10 - Essential (primary) hypertension Comment: on Metoprolol - weekly bpp's starting 32 weeks. deliver 37-38 weeks. (3) : Status: Acute Qualifiers: Weeks of gestation: 33 weeks Qualified Code(s): Z3A.33 - 33 weeks gestation of Comment: accept NIPT- low risk, male (4) AMA (advanced maternal age) multigravida 35+: Status: Acute Qualifiers: Trimester: third trimester Qualified Code(s): O09.523 - Supervision of elderly multigravida, third trimester Comment: growth at 36 (5) Obesity affecting : Status: Acute Qualifiers: Obesity type affecting : unspecified obesity Trimester: third trimester Qualified Code(s): O99.213 - Obesity complicating , third trimester Comment: BMI 45.4; BPPs at 34 weeks& needs anesthesia consult HgBA1C ordered w/NOB (6) Abnormal glucose affecting : Status: Acute Comment: passed 3 hour (7) Herpes simplex type 2 infection: Status: Acute Comment: Valtrax PRN (8) Depression: Status: Acute Qualifiers: Depression Type: unspecified Qualified Code(s): F32.A - Depression, unspecified Comment: Lexapro stable Orders: Orders POC Urinalysis 2 Dip (Clinic) Today Plan problem list reviewed and updated for most current plan of care and appropriate orders placed. Relevant counseling for the gestational age appropriate provided and ACOG education checklist updated. Continue routine care and follow up. 11/30/24 0953 <Electronically signed by Ade dallas NP INSURANCE EXECUTIVE-C> Date _ Ade Peñatings INSURANCE EXECUTIVE INSURANCE EXECUTIVE-C Cosigner Signature: Date (if applicable) CC: ~ [facility] Work Phone: Progress note Author Anh Soto [facility] Note Date/Time December 08, 2024 9: 46am [facility] [address], [address] [place] [address] OFFICE VISIT Date of Service: 12/08/24 MR#: [id number] Acct: [id number] Name: SHU GASPAR Rep #: [id number] : 1990 Provider: Dr. 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 Is patient in pain?: No Allergies No Known Allergies Allergy (Verified 12/08/24 08:49) Medications ?Medication ?Instructions ?Recorded ?Confirmed ?Type gfgaimge-eqr-Ro-FA 1 mg tab PO 01/11/2212/08 History tablet escitalopram oxalate 20 mg tablet 20 mg PO QDAY 12/08/24 History (Lexapro) metoprolol succinate 100 mg 100 mg PO BID 03/17/2405/30 History tablet,extended release 24 hr valacyclovir 500 mg tablet 500 mg PO QDAY #30 tabs 12/08/24 Rx (Valtrex) Last Menstrual Period: 04/09/24 Zika: Zika virus [...] physical activity do you participate in: none baylee/amish: None seatbelt use: always do you feel safe at home: Yes additional social history: : Parth Leggett History 2 Elective abortions Hx Para 1 Spontaneous abortions Hx # Term Pregnancies 1 Ectopic pregnancies Hx # Pregnancies Multiple births # of living children 1 Past Pregnancies Del. Date Name GA/Weeks Outcome Route Bth Weight Infant Gen Labor Lgth Anesthesia Del Locatn Provider FOB 01/05/22 [place] 39 live - full term 7lbs 8oz Male e pidural Parth Delivery Date: 01/05/22 Last Updated by: Andressa Schmitz RN HTN during labor..(no pre-e but now has chronic HTN) HPI 34 wk ob Details: SHU GASPAR is a 33 year old who presents for routine OB visit. OB Visit SLIME Calculator Estimated Delivery Date Method Current WG Current Estimate 01/14/25 LMP (Certain) 34w 5d Other Estimates 01/17/25 Ultrasound #1 34w 2d Expected Delivery Route/Plan Labor Preferences CB/BF classes: no labor support person: Parth labor intervention preferences: [] pain management options preferred: [] cut cord/dad catch: [] : [] PP control planned: [] discussed possible routes of delivery and associated risks: [] special requests: [] Specific Issue/Plans Covid status: [] Flu vaccine: [] Tdap vaccine: given Rhogam: NA LARC form signed: yes Problem list reviewed and updated with the [...] between 32-34 weeks, deliver at 37-38 weeks.prefers community relations manager delivery if possible! JV- planning to stop metform in and do glucola at 26-28 weeks. continue baby asa and metoprolol. plan weekly testing @ 32 weeks, deliver at 37-38 weeks.prefers community relations manager delivery if possible! 09/01/24 -?-?-?-?-?-?-?-?-?-?-?-?- 20w 5d [...] and growths ordered starting at 32 weeks. 11/23/24 -?-?-?-?-?-?-?-?-?-?-?-?- 32w 4d 275 lb (+21 lb) 114/75 -?-?-?-?-?-?-?-?-?-?-?-?- 140 33 -?-?-?-?-?-?-?-?-?-?-?-?- SM-no vb lof goo d fm no regular ctx 11/30/24 -?-?-?--?-?-?-?-?-?-?-?-?- 33w 4d 277 lb 6 oz (+23 lb 6 oz) 129/84 Negative -?-?-?-?-?-?-?-?-?-?-?-?- Negative 142 35 -?-?-?-?-?-?-?-?-?-?-?-?- MH-No VB, LOF. G ood FM. States passed BPP prior to this appt today 12/08/24 -?-?-?-?-?-?-?-?-?-?-?-?- 34w 5d 276 lb 6.4 oz (+22 lb 6.4 oz) 123/79 Negative -?-?-?-?-?-?-?-?-?-?-?-?- Negative 135 Breech -?-?-?-?-?-?-?-?-?-?-?-?- JV- patient woul d like a version if still breech at her 36 week BPP. no lof, vaginal bleeding, or dec fm. ACOG First Trimester First Trimester: Discussed Second Trimester Second Trimester: Signs and Symptoms of Labor, Selecting a care provider, Reproductive Life Planning & Contreception, Care Planning, Depression/Anxiety and Intimate Partner Violence; Discussed Tobacco Cessation Third Trimester Third Trimester: Pain Management Plans, Labor support person(s), Immediate Larc, Signs and Symptoms of Preeclampsia, Infant Feeding No , Education and Family Medical Leave or Disability Forms Results POC Urinalysis 2 Dip (Clinic) Office Urine Glucose Negative Last Edit by Judie Edwards on 12/08/24 09: 00 Office Urine Protein Negative Last Edit by Judie Edwards on 12/08/24 09: 00 Coding Level of Care Code OB Routine Diagnoses Abnormal glucose affecting O99.810 Polycystic disease, ovaries E28.2 Obesity affecting in third trimester, unspecified obesity type O99.213 Obesity type affecting : unspecified obesity Trimester: third trimester Multigravida of advanced maternal age in third trimester O09.523 Trimester: third trimester Supervision of high risk in third trimester O09.93 Trimester: third trimester 34 weeks gestation of Z3A.34 Weeks of gestation: 34 weeks Herpes simplex type 2 infection B00.9 Hypertension, unspecified type I10 Hypertension type: unspecified Acute thoracic myofascial strain S29.019A Depression, unspecified depression type F32.A Depression Type: unspecified Assessment and Plan Assessment and Plan (1) Abnormal glucose affecting : Status: Acute Comment: passed 3 hour (2) Polycystic disease, ovaries: Status: Acute Comment: counseled regarding continuing vs stopping metformin, patient continued last with good outcomes wants to continue this (3) Obesity affecting : Status: Acute Qualifiers: Obesity type affecting : unspecified obesity Trimester: third trimester Qualified Code(s): O99.213 - Obesity complicating , third trimester Comment: BMI 45.4; BPPs at 34 weeks& needs anesthesia consult HgBA1C ordered w/NOB (4) AMA (advanced maternal age) multigravida 35+: Status: Acute Qualifiers: Trimester: third trimester Qualified Code(s): O09.523 - Supervision of elderly multigravida, third trimester Comment: growth at 36 (5) Supervision of high-risk : Status: Acute Qualifiers: Trimester: third trimester Qualified Code(s): O09.93 - Supervision of high risk , unspecified, third trimester Comment: PRR, , SLIME 01/14/25, PC: Chad, PC: Parth (6) : Status: Acute Qualifiers: Weeks of gestation: 34 weeks Qualified Code(s): Z3A.34 - 34 weeks gestation of Comment: accept NIPT- low risk, male (7) Herpes simplex type 2 infection: Status: Acute Comment: Valtrax PRN (8) Hypertension: Status: Chronic Qualifiers: Hypertension type: unspecified Qualified Code(s): I10 - Essential (primary) hypertension Comment: on Metoprolol - weekly bpp's starting 32 weeks. deliver 37-38 weeks. (9) Acute thoracic myofascial strain: Status: Acute (10) Depression: Status: Acute Qualifiers: Depression Type: unspecified Qualified Code(s): F32.A - Depression, unspecified Comment: Lexapro stable Orders: Orders POC Urinalysis 2 Dip (Clinic) Today 12/08/24 0946 <Electronically signed by Anh Hoffman DO> Date _ Anh Song DO Cosigner Signature: Date (if applicable) CC: ~ [facility] Work Phone: Progress note Author Tawana Timmons [facility] Note Date/Time December 13, 2024 9: 36am [facility] [address] [place] [address], [address] [place] [address] OFFICE VISIT Date of Service: 12/13/24 MR#: [id number] Acct: [id number] Name: SHU GASPAR Rep #: [id number] : 1990 Provider: Dr. 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: No Is patient in pain?: No Allergies No Known Allergies Allergy (Verified 12/13/24 09:18) Medications ?Medication ?Instructions ?Recorded ?Confirmed ?Type nszylldk-ptu-Qq-FA 1 mg tab PO 01/11/2212/13 History tablet escitalopram oxalate 20 mg tablet 20 mg PO QDAY 12/13/24 History (Lexapro) metoprolol succinate 100 mg 100 mg PO BID 03/17/2410/30 History tablet,extended release 24 hr valacyclovir 500 mg tablet 500 mg PO QDAY #30 tabs 12/13/24 Rx (Valtrex) Last Menstrual Period: 04/09/24 Zika: Zika virus [...] status: employed 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 Date Name GA/Weeks Outcome Route Bth Weight Gen Labor Lgth Anesthesia Del Locatn Provider FOB 01/05/22 [place] 39 live - full term 7lbs 8oz Male e pidural [facility] Parth Delivery Date: 01/05/22 Last Updated by: Andressa Schmitz RN HTN during labor..(no pre-e but now has chronic HTN) HPI 35 WK OB Details: SHU GASPAR is a 33 year old who presents for routine OB visit. OB Visit SLIME Calculator Estimated Delivery Date Method Current WG Current Estimate 01/14/25 LMP (Certain) 35w 3d Other Estimates 01/17/25 Ultrasound #1 35w 0d Expected Delivery Route/Plan Labor Preferences CB/BF classes: no labor support person: Parth labor intervention preferences: [] pain management options preferred: [] cut cord/dad catch: [] : [] PP control planned: [] discussed possible routes of delivery and associated risks: [] special requests: [] Specific Issue/Plans Covid status: [] Flu vaccine: [] Tdap vaccine: given Rhogam: NA LARC form signed: yes Problem list reviewed and updated with the [...] 3d 266 lb (+12 lb) 118/75 Negative -?-?-?-?-?-?-?-?-?-?--?-?- Negative 145 -?-?-?-?-?-?-?-?-?-?-?-?- JV- planning to stop metformin and do glucola at 26-28 weeks. continue baby asa and metoprolol. plan twice weekly testing between 32-34 weeks, deliver at 37-38 weeks. JV- planning to stop metform in and do glucola at 26-28 weeks. continue baby asa and metoprolol. plan twice weekly testing between 32-34 weeks, deliver at 37-38 weeks.prefers community relations manager delivery if possible! JV- planning to stop metform in and do glucola at 26-28 weeks. continue baby asa and metoprolol. plan weekly testing @ 32 weeks, deliver at 37-38 weeks.prefers community relations manager delivery if possible! 09/01/24 -?-?-?-?-?-?-?-?-?-?-?-?- 20w 5d [...] good fm. glucose discussed. reviewed US 10/30/24 -?-?-?-?-?-?-?-?--?-?-?-?- 29w 1d 268 lb 5 oz (+14 lb 5 oz) 120/83 Negative -?-?-?-?-?-?-?-?-?-?-?-?- Negative 140 -?-?-?-?-?-?-?-?-?-?-?-?- KW- no vb/lof/ct x. good fm. glucose done today. tdap and LARC today. would like IUD PP. KW- no vb/lof/ctx. good fm. glucose done today. tdap and LARC today. would like IUD PP. BPPs and growths ordered starting at 32 weeks. 11/23/24 -?-?-?-?-?-?-?-?-?-?-?-?- 32w 4d 275 lb (+21 lb) 114/75 -?-?-?-?-?-?-?-?-?-?-?-?- 140 33 -?-?-?-?-?-?-?-?-?-?-?-?- SM-no vb lof goo d fm no regular ctx 11/30/24 -?-?-?-?-?-?-?-?-?-?-?-?- 33w 4d 277 lb 6 oz (+23 lb 6 oz) 129/84 Negative -?-?-?-?-?-?-?-?-?-?-?-?- Negative 142 35 -?-?-?-?-?-?-?-?-?-?-?-?- MH-No VB, LOF. G ood FM. States passed BPP prior to this appt today 12/08/24 -?-?-?-?-?-?-?-?-?-?-?-?- 34w 5d 276 lb 6.4 oz (+22 lb 6.4 oz) 123/79 Negative -?-?-?-?-?-?-?-?-?-?-?-?- Negative 135 Breech -?-?-?-?-?-?-?-?-?-?-?-?- JV- patient woul d like a version if still breech at her 36 week BPP. no lof, vaginal bleeding, or dec fm. 12/13/24 -?-?-?-?-?-?-?-?-?-?-?-?- 35w 3d 276 lb 6 oz (+22 lb 6 oz) 126/85 Negative -?-?-?-?-?-?-?-?-?-?-?-?- Negative 130 36 -?-?-?-?-?-?-?-?-?-?-?-?- Sm- no vb lof go od fm no rgular ctx discussed ECV ACOG First Trimester First Trimester: Discussed Second Trimester Second Trimester: Signs and Symptoms of Labor, Selecting a care provider, Reproductive Life Planning & Contreception, Care Planning, Depression/Anxiety and Intimate Partner Violence; Discussed Tobacco Cessation Third Trimester Third Trimester: Pain Management Plans, Labor support person(s), Immediate Larc, Signs and Symptoms of Preeclampsia, Feeding No , [place] Education and Family Medical Leave or Disability Forms Results POC Urinalysis 2 Dip (Clinic) Office Urine Glucose Negative Last Edit by Aed Price on 12/13/24 09:23 Office Urine Protein Negative Last Edit by Ade Price on 12/13/24 09:23 Coding Level of Care Code OB Routine Diagnoses Abnormal glucose affecting O99.810 Polycystic disease, ovaries E28.2 Obesity affecting in third trimester, unspecified obesity type O99.213 Obesity type affecting : unspecified obesity Trimester: third trimester Multigravida of advanced maternal age in third trimester O09.523 Trimester: third trimester Supervision of high risk in third trimester O09. Trimester: third trimester 35 weeks gestation of Z3A.35 Weeks of gestation: 35 weeks Herpes simplex type 2 infection B00.9 Hypertension, unspecified type I10 Hypertension type: unspecified Acute thoracic myofascial strain S29.019A Depression, unspecified depression type F32.A Depression Type: unspecified Breech presentation O32.1XX0 Assessment and Plan Assessment and Plan (1) Abnormal glucose affecting : Status: Acute Comment: passed 3 hour (2) Polycystic disease, ovaries: Status: Acute Comment: counseled regarding continuing vs stopping metformin, patient continued last with good outcomes wants to continue this (3) Obesity affecting : Status: Acute Qualifiers: Obesity type affecting : unspecified obesity Trimester: third trimester Qualified Code(s): O99.213 - Obesity complicating , third trimester Comment: BMI 45.4; BPPs at 34 weeks& needs anesthesia consult HgBA1C ordered w/NOB (4) AMA (advanced maternal age) multigravida 35+: Status: Acute Qualifiers: Trimester: third trimester Qualified Code(s): O09.523 - Supervision of elderly multigravida, third trimester Comment: growth at 36 (5) Supervision of high-risk : Status: Acute Qualifiers: Trimester: third trimester Qualified Code(s): O09.93 - Supervision of high risk , unspecified, third trimester Comment: PRR, , SLIME 01/14/25, PC: Chad PC: Parth (6) : Status: Acute Qualifiers: Weeks of gestation: 35 weeks Qualified Code(s): Z3A.35 - 35 weeks gestation of Comment: accept NIPT- low risk, male (7) Herpes simplex type 2 infection: Status: Acute Comment: Valtrax PRN (8) Hypertension: Status: Chronic Qualifiers: Hypertension type: unspecified Qualified Code(s): I10 - Essential (primary) hypertension Comment: on Metoprolol - weekly bpp's starting 32 weeks. deliver 37-38 weeks. (9) Acute thoracic myofascial strain: Status: Acute (10) Depression: Status: Acute Qualifiers: Depression Type: unspecified Qualified Code(s): F32.A - Depression, unspecified Comment: Lexapro stable (11) Breech presentation: Status: Acute Comment: dicsussed ECV at 37 and IOL at 38 Orders: Orders POC Urinalysis 2 Dip (Clinic) Today 12/13/24 0936 <Electronically signed by Tawana ash MD> Date _ Tawana Timmons MD [facility] Signature: Date (if applicable) CC: ~ [facility] Work Phone: Reason for referral (narrative)* Name Reason for referral NA [facility] 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 Reason for referral (narrative)No reason for referral information [facility] Work Phone: Family History No Family History [...] itchy.* PPV * EPDS= 5 * Declined It Security Consultant: LEONARDA Oquendo * A telephone visit (audio only) between the patient (at the originating site) and the provider (at the distant site) was utilized to provide this telehealth service. 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, 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 11:53am Amb Documentation May 26, 2024 8:2 2am NOB LMP 04/09June 09, 2024 1:05 pm 12wk OB July 06, 2024 2:57pm OBESITY July 21, 2024 8:53a m July 21, 2024 9:05a m Chief Complaint 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, 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 11:53am Amb Documentation May 26, 2024 8:2 2am NOB LMP 2/2 June 09, 2024 1:05 pm 12wk OB July [...] infection June 1:05pm Obesity affecting June 09, 1:05pm June 09, 2024 1:05 pm Supervision [...] May 26, 2024 8:2 2am NOB LMP 2/2 June 09, 2024 1:05 pm 12wk OB July [...] infection June 1:05pm Obesity affecting June 09, 1:05pm June 09, 2024 1:05 pm Supervision [...] pm Chief Complaint Admit Date NOB LMP 2/2 June 09, 2024 1:05 pm 12wk OB July [...] 2024 1: 40pm Supervision of high-risk Augus 2024 1:40pm Hypertension October 30, 2024 1: 40pm Chief Complaint Admit Date 12wk OB July 06, 2024 2:57pm OBESITY July 21, 2024 8:53a m July 21, 2024 9:05a m 16wk ob August 02, 2024 10:59 am 20wk ob September 01, 2024 2:51 pm 24 wk ob October 02, 2024 9:38 am 29 wk ob/glucose October 30, 2024 1: 40pm Chief Complaint Admit Date OBESITY July 21, 2024 8:53a m July 21, 2024 9:05a m 16wk ob August 02, 2024 10:59 am 20wk ob September 01, 2024 2:51 pm 24 wk ob October 02, 2024 9:38 am 29 wk ob/glucose October 30, 2024 1: 40pm November 10, 2024 6:47am Reason for Visit Admit Date Acute thoracic myofascial strain July 10:59am AMA [...] infection September 9:38am Obesity affecting October 02, 9:38am Polycystic disease, ovaries October 02 025 9:38am October 02, 2024 9:38 am [...] 2024 1: 40pm Supervision of high-risk Augus 2024 1:40pm Hypertension October 30, 2024 1: 40pm Chief Complaint Admit Date 16wk ob August 02, 2024 10:59 am 20wk ob September 01, 2024 2:51 pm 24 wk ob October 02, 2024 9:38 am 29 wk ob/glucose October 30, 2024 1: 40pm November 10, 2024 6:47am 32 WEEK WELLBEING November 20, 2024 3:56pm 32 wk ob November 23, 2024 9:16am Reason for Visit Admit Date Acute thoracic myofascial strain July 10:59am AMA [...] 2 infection August 2:51pm Obesity affecting September 01 2 025 2:51pm Polycystic disease, ovaries September 01, 2 025 2:51pm September 01, 2024 2:51 pm Supervision of high-risk September 01, 2024 2:51pm Hypertension September 01, 2024 2:51 pm Acute thoracic myofascial strain October 022024 9:38am AMA (advanced maternal age) multigravida 35+ October 02, 2024 9:38am Depression October 02, 2024 9:38 am Herpes simplex type 2 infection September 9:38am Obesity affecting October 02 025 9:38am Polycystic disease, ovaries October 02 025 9:38am October 02, 2024 9:38 am [...] 2024 1: 40pm Supervision of high-risk Augus 2024 1:40pm Hypertension October 30, 2024 1: 40pm Abnormal glucose affecting Sep 2024 9:16am Acute thoracic myofascial strain Septemb er 2024 9:16am AMA (advanced maternal age) multigravida 35+ November 23, 2024 9:16am Depression November 23, 2024 9:16am Herpes simplex type 2 infection Septembe r 2024 9:16am Obesity affecting November 232024 9:16am Polycystic disease, ovaries November 232024 9:16am November 23, 2024 9:16am Supervision of high-risk Mayank nico 2024 9:16am Hypertension November 23, 2024 9:16am Chief Complaint Admit Date 20wk ob September 01, 2024 2:51 pm 24 wk ob October 02, 2024 9:38 am 29 wk ob/glucose October 30, 2024 1: 40pm November 10, 2024 6:47am 32 WEEK WELLBEING November 20, 2024 3:56pm 32 wk ob November 23, 2024 9:16am 33 WEEK WELLBEING November 30, 2024 8:55am 33 WK OB November 30, 2024 9:39am Reason for Visit Admit Date Acute thoracic myofascial strain September 012024 2:51pm [...] 2024 1: 40pm Supervision of high-risk Augus 2024 1:40pm Hypertension October 30, 2024 1: 40pm Abnormal glucose affecting [facility]2024 9:16am [facility] 9:16am AMA (advanced maternal age) multigravida 35+ November 23, 2024 9:16am Depression November 23, 2024 9:16am Herpes simplex type 2 infection [facility] 2024 9:16am Obesity affecting November 232024 9:16am Polycystic disease, ovaries November 232024 9:16am November 23, 2024 9:16am Supervision of high-risk [facility] 2024 9:16am Hypertension November 23, 2024 9:16am Abnormal glucose affecting [facility] 2024 9:39am AMA (advanced maternal age) multigravida 35+ November 30, 2024 9:39am Depression November 30, 2024 9:39am Herpes simplex type 2 infection [facility] 2024 9:39am Obesity affecting November 302024 9:39am November 30, 2024 9:39am Supervision of high-risk [facility] 2024 9:39am Hypertension November 30, 2024 9:39am Chief Complaint Admit Date 20wk ob September 01, 2024 2:51 pm 24 wk ob October 02, 2024 9:38 am 29 wk ob/glucose October 30, 2024 1: 40pm November 10, 2024 6:47am 32 WEEK WELLBEING November 20, 2024 3:56pm 32 wk ob November 23, 2024 9:16am 33 WEEK WELLBEING November 30, 2024 8:55am 33 WK OB November 30, 2024 9:39am 34 WEEK WELLBEING December 08 7:55am 34 wk ob December 08, 2024 8: 47am Reason for Visit Admit Date Acute thoracic myofascial strain September 012024 2:51pm AMA (advanced maternal age) multigravida 35+ September 01, 2024 2:51pm Depression September 01, 2024 2:51 pm Herpes simplex type 2 infection August 2:51pm Obesity affecting September 01, 2 025 2:51pm Polycystic disease, ovaries September 01 2 025 2:51pm September 01, 2024 2:51 pm Supervision of high-risk September 01, 2024 2:51pm Hypertension September 01, 2024 2:51 pm Acute thoracic myofascial strain October 022024 9:38am AMA (advanced maternal age) multigravida 35+ October 02, 2024 9:38am Depression October 02, 2024 9:38 am Herpes simplex type 2 infection September 9:38am Obesity affecting October 02 025 9:38am Polycystic disease, ovaries October 02 025 9:38am October 02, 2024 9:38 am [...] 2024 1: 40pm Supervision of high-risk [facility] 2024 1:40pm Hypertension October 30, 2024 1: 40pm Abnormal glucose affecting Nov 9:16am Acute thoracic myofascial strain [facility] 2024 9:16am AMA (advanced maternal age) multigravida 35+ November 23, 2024 9:16am Depression November 23, 2024 9:16am Herpes simplex type 2 infection [facility] 2024 9:16am Obesity affecting November 232024 9:16am Polycystic disease, ovaries November 232024 9:16am November 23, 2024 9:16am Supervision of high-risk [facility] 2024 9:16am Hypertension November 23, 2024 9:16am Abnormal glucose affecting Sep 2024 9:39am AMA (advanced maternal age) multigravida 35+ November 30, 2024 9:39am Depression November 30, 2024 9:39am [facility] 9:[facility] Obesity affecting November 302024 9:39am November 30, 2024 9:39am Supervision of high-risk Septe [email or web address] 9:39am Hypertension November 30, 2024 9:39am Abnormal glucose affecting Oct mari2024 8:47am Acute thoracic myofascial strain December 08, 2024 8:47am AMA (advanced maternal age) multigravida 35+ December 08, 2024 8:47am Depression December 08, 2024 8: 47am Herpes simplex type 2 infection December 08, 2024 8:47am Obesity affecting December 08, 2024 8:47am Polycystic disease, ovaries December 08, 2024 8:47am December 08, 2024 8: 47am Supervision of high-risk [facility] 2024 8:47am Hypertension December 08, 2024 8: 47am Chief Complaint Admit Date 20wk ob September 01, 2024 2:51 pm 24 wk ob October 02, 2024 9:38 am 29 wk ob/glucose October 30, 2024 1: 40pm November 10, 2024 6:47am 32 WEEK WELLBEING November 20, 2024 3:56pm 32 wk ob November 23, 2024 9:16am 33 WEEK WELLBEING November 30, 2024 8:55am 33 WK OB November 30, 2024 9:39am 34 WEEK WELLBEING December 08 7:55am 34 wk ob December 08, 2024 8: 47am 35 WK OB December 13, 2024 9: 15am Reason for Visit Admit Date Acute thoracic myofascial strain September 012024 2:51pm AMA (advanced maternal age) multigravida 35+ September 01, 2024 2:51pm Depression September 01, 2024 2:51 pm Herpes simplex type 2 infection August 2:51pm Obesity affecting September 01, 025 2:51pm Polycystic disease, ovaries September 01 2 025 2:51pm September 01, 2024 2:51 pm Supervision of high-risk September 01, 2024 2:51pm Hypertension September 01, 2024 2:51 pm Acute thoracic myofascial strain October 022024 9:38am AMA (advanced maternal age) multigravida 35+ October 02, 2024 9:38am Depression October 02, 2024 9:38 am Herpes simplex type 2 infection September 9:38am Obesity affecting October 02 9:38am Polycystic disease, ovaries October 02 025 9:38am October 02, 2024 9:38 am [...] 2024 1: 40pm Supervision of high-risk [facility] 2024 1:40pm Hypertension October 30, 2024 1: 40pm Abnormal glucose affecting Nov 9:16am Acute thoracic myofascial strain [facility] 2024 9:16am AMA (advanced maternal age) multigravida 35+ November 23, 2024 9:16am Depression November 23, 2024 9:16am Herpes simplex type 2 infection [facility] 2024 9:16am Obesity affecting November 232024 9:16am Polycystic disease, ovaries November 232024 9:16am November 23, 2024 9:16am [facility] 2024 9:16am Hypertension November 23, 2024 9:16am Abnormal glucose affecting Sep 2024 9:39am AMA (advanced maternal age) multigravida 35+ November 30, 2024 9:39am Depression November 30, 2024 9:39am [facility] 9:39am Obesity affecting November 302024 9:39am November 30, 2024 9:39am Supervision of high-risk Septe [email or web address] 9:39am Hypertension November 30, 2024 9:39am Abnormal glucose affecting Oct [facility] 2024 8:47am Acute thoracic myofascial strain December 08, 2024 8:47am AMA (advanced maternal age) multigravida 35+ December 08, 2024 8:47am Depression December 08, 2024 8: 47am Herpes simplex type 2 infection December 08, 2024 8:47am Obesity affecting December 08, 2024 8:47am Polycystic disease, ovaries December 08, 2024 8:47am December 08, 2024 8: 47am Supervision of high-risk [facility] 2024 8:47am Hypertension December 08, 2024 8: 47am Abnormal glucose affecting Oct mari 2024 9:15am Acute thoracic myofascial strain December 13, 2024 9:15am AMA (advanced maternal age) multigravida 35+ December 13, 2024 9:15am Breech presentation December 13, 2024 9: 15am Depression December 13, 2024 9: 15am Herpes simplex type 2 infection December 13, 2024 9:15am Obesity affecting December 13, 2024 9:15am Polycystic disease, ovaries December 13, 2024 9:15am December 13, 2024 9: 15am Supervision of high-risk [facility] 2024 9:15am Hypertension December 13, 2024 9: 15am Chief Complaint Admit Date 20wk ob September 01, 2024 2:51 pm 24 wk ob October 02, 2024 9:38 am 29 wk ob/glucose October 30, 2024 1: 40pm November 10, 2024 6:47am 32 WEEK WELLBEING November 20, 2024 3:56pm 32 wk ob November 23, 2024 9:16am 33 WEEK WELLBEING November 30, 2024 8:55am 33 WK OB November 30, 2024 9:39am 34 WEEK WELLBEING December 08 7:55am 34 wk ob December 08, 2024 8: 47am 35 WK OB December 13, 2024 9: 15am 35 WEEK WELLBEING December 13 9:41am MONITORING December 13, 2024 11 :27am Additional Source Comments INFORMATION SOURCE (unrecogn ized section and content) DATE CREATED AUTHOR 04/04/2020 [facility] DATE CREATED AUTHOR AUTHOR'S ORGANIZ ATION 03/01/2022 [facility] DATE CREATED AUTHOR AUTHOR'S ORGANIZ ATION 03/03/2022 [employer] DATE CREATED AUTHOR AUTHOR'S ORGANIZ ATION 08/17/2022 [facility] DATE CREATED AUTHOR AUTHOR'S ORGANIZ ATION 08/15/2023 [facility] ([place]) DATE CREATED AUTHOR AUTHOR'S ORGANIZ ATION 06/25/2024 [facility] DATE CREATED AUTHOR AUTHOR'S ORGANIZ ATION 09/16/2024 [facility] DATE CREATED AUTHOR AUTHOR'S ORGANIZ ATION 12/20/2024 [facility] <item> Privacy Markings (unrecogniz ed section and content) Section Author: Melba Lares PROHIBITION ON REDISCLOSURE OF CONFIDENTIAL INFORMATION This notice accompanies a disclosure of information concerning a client made to you with the consent of such client. Goals (unrecognized section and content) Type Care Experience Labor Preferences-CB /BF classes: []labor support person: []labor intervention preferences: []pain management options preferred: []cut cord/dad catch: []: []PP control planned: []discussed possible routes of delivery and associated risks: []special requests: [] Type Detail Care Experience Labor PreferencesCB/ BF classes: nolabor support person: Rodrigo intervention preferences: []pain management options preferred: []cut cord/dad catch: []: []PP control planned: []discussed possible routes of delivery and associated risks: []special requests: [] Patient Care team informatio n (unrecognized section [...] 2024 End: August 02, 2024 Dr. Tawana Timmosn MD Referring Provider Active Start: August 02, [...] Bella MD Primary Care Provider Active Start: November 10, 2024 End: November 10, 2024 Carmen Perdomo CNM Attending Provider Active S tart: November 10, 2024 End: November 10, 2024 Carmen Perdomo CNM Referring Provider Active S tart: November 10, 2024 End: November 10, 2024 Team Status: Active Member Role/Relationship Status Dates Dr. Judie Bella MD Primary care physician Active Team Status: Inactive Member Role/Relationship Status Dates Dr. Judie Bella MD Primary care physician Active Start: August 02, 2024 End: August 02, 2024 Dr. Judie Bella MD Referring Provider Active Start: August 02, 2024 End: August 02, 2024 Dr. Anh Song DO Attending physician Acti ve Start: August 02, 2024 End: August 02, 2024 Team Status: Inactive Member Role/Relationship Status Dates Dr. Judie Bella MD Primary care physician Active Start: August 02, 2024 End: August 02, 2024 Dr. Tawana Timmons MD Attending physician Active Start: August 02, 2024 End: August 02, 2024 Dr. Tawana Timmons MD Referring Provider Active Start: August 02, 2024 End: August 02, 2024 Team Status: Inactive Member Role/Relationship Status Dates Dr. Anh Song DO Attending physician Acti ve Start: September 01, 2024 End: September 01, 2024 Dr. Judie Bella MD Primary care physician Active Start: September 01, 2024 End: September 01, 2024 Dr. Judie Bella MD Referring Provider Active Start: September 01, 2024 End: September 01, 2024 Team Status: Inactive Member Role/Relationship Status Dates Carmen Perdomo CNM Attending physician Active Start: October 02, 2024 End: October 02, 2024 Dr. Judie Bella MD Primary care physician Active Start: October 02, 2024 End: October 02, 2024 Dr. Judie Bella MD Referring Provider Active Start: October 02, 2024 End: October 02, 2024 Team Status: Inactive Member Role/Relationship Status Dates Dr. Judie Bella MD Primary care physician Active Start: October 30, 2024 End: October 30, 2024 Carmen Perdomo CNM Attending physician Active Start: October 30, 2024 End: October 30, 2024 Carmen Perdomo CNM Referring Provider Active S tart: October 30, 2024 End: October 30, 2024 Team Status: Inactive Member Role/Relationship Status Dates Dr. Judie Bella MD Primary care physician Active Start: October 30, 2024 End: October 30, 2024 Dr. Judie Bella MD Referring Provider Active Start: October 30, 2024 End: October 30, 2024 Carmen Perdomo CNM Attending physician Active Start: October 30, 2024 End: October 30, 2024 Team Status: Inactive Member Role/Relationship Status Dates Dr. Judie Bella MD Primary care physician Active Start: November 10, 2024 End: November 10, 2024 Carmen Perdomo CNM Attending physician Active Start: November 10, 2024 End: November 10, 2024 Carmen Perdomo CNM Referring Provider Active S tart: November 10, 2024 End: November 10, 2024 Team Status: Active Member Role/Relationship Status Dates Dr. Judie Bella MD Primary care physician Active Start: November 20, 2024 Carmen Perdomo CNM Attending physician Active Start: November 20, 2024 Carmen Perdomo CNM Referring Provider Active S tart: November 20, 2024 Team Status: Inactive Member Role/Relationship Status Dates Dr. Judie Bella MD Primary care physician Active Start: November 23, 2024 End: November 23, 2024 Dr. Judie Bella MD Referring Provider Active Start: November 23, 2024 End: November 23, 2024 Dr. Tawana Timmons MD Attending physician Active Start: November 23, 2024 End: November 23, 2024 Team Status: Inactive Member Role/Relationship Status Dates Dr. Anh Song DO Attending physician Acti ve Start: September 01, 2024 End: September 01, 2024 Dr. Judie Bella MD Primary care physician Active Start: September 01, 2024 End: September 01, 2024 Dr. Judie Bella MD Referring Provider Active Start: September 01, 2024 End: September 01, 2024 Team Status: Inactive Member Role/Relationship Status Dates Carmen Perdomo CNM Attending physician Active Start: October 02, 2024 End: October 02, 2024 Dr. Judie Bella MD Primary care physician Active Start: October 02, 2024 End: October 02, 2024 Dr. Judie Bella MD Referring Provider Active Start: October 02, 2024 End: October 02, 2024 Team Status: Inactive Member Role/Relationship Status Dates Dr. Judie Bella MD Primary care physician Active Start: October 30, 2024 End: October 30, 2024 Carmen Perdomo CNM Attending physician Active Start: October 30, 2024 End: October 30, 2024 Carmen Perdomo CNM Referring Provider Active S tart: October 30, 2024 End: October 30, 2024 Team Status: Inactive Member Role/Relationship Status Dates Dr. Judie Bella MD Primary care physician Active Start: October 30, 2024 End: October 30, 2024 Dr. Judie Bella MD Referring Provider Active Start: October 30, 2024 End: October 30, 2024 Carmen Perdomo CNM Attending physician Active Start: October 30, 2024 End: October 30, 2024 Team Status: Inactive Member Role/Relationship Status Dates Dr. Judie Bella MD Primary care physician Active Start: November 10, 2024 End: November 10, 2024 Carmen Perdomo CNM Attending physician Active Start: November 10, 2024 End: November 10, 2024 Carmen Perdomo CNM Referring Provider Active S tart: November 10, 2024 End: November 10, 2024 Team Status: Inactive Member Role/Relationship Status Dates Dr. Judie Bella MD Primary care physician Active Start: November 20, 2024 End: November 20, 2024 Carmen Perdomo CNM Attending physician Active Start: November 20, 2024 End: November 20, 2024 Carmen Perdomo CNM Referring Provider Active S tart: November 20, 2024 End: November 20, 2024 Team Status: Inactive Member Role/Relationship Status Dates Dr. Judie Bella MD Primary care physician Active Start: November 23, 2024 End: November 23, 2024 Dr. Judie Bella MD Referring Provider Active Start: November 23, 2024 End: November 23, 2024 Dr. Tawana Timmons MD Attending physician Active Start: November 23, 2024 End: November 23, 2024 Team Status: Active Member Role/Relationship Status Dates Dr. Judie Bella MD Primary care physician Active Start: November 30, 2024 Carmen Perdomo CNM Attending physician Active Start: November 30, 2024 Carmen Perdomo CNM Referring Provider Active S tart: November 30, 2024 Team Status: Inactive Member Role/Relationship Status Dates Dr. Judie Bella MD Primary care physician Active Start: November 30, 2024 End: November 30, 2024 Dr. Judie Bella MD Referring Provider Active Start: November 30, 2024 End: November 30, 2024 Ade Fam INSURANCE EXECUTIVE, INSURANCE EXECUTIVE-C Attending physician Active Start: November 30, 2024 End: November 30, 2024 Team Status: Inactive Member Role/Relationship Status Dates Dr. Judie Bella MD Primary care physician Active Start: November 30, 2024 End: November 30, 2024 Carmen Perdomo CNM Attending physician Active Start: November 30, 2024 End: November 30, 2024 Carmen Perdomo CNM Referring Provider Active S tart: November 30, 2024 End: November 30, 2024 Team Status: Active Member Role/Relationship Status Dates Dr. Judie Bella MD Primary care physician Active Start: December 08, 2024 Carmen Perdomo CNM Attending physician Active Start: December 08, 2024 Carmen Perdomo CNM Referring Provider Active S tart: December 08, 2024 Team Status: Inactive Member Role/Relationship Status Dates Dr. Judie Bella MD Primary care physician Active Start: December 08, 2024 End: December 08, 2024 Dr. Judie Bella MD Referring Provider Active Start: December 08, 2024 End: December 08, 2024 Dr. Anh Song DO Attending physician Acti ve Start: December 08, 2024 End: December 08, 2024 Team Status: Inactive Member Role/Relationship Status Dates Dr. Judie Bella MD Primary care physician Active Start: December 13, 2024 End: December 13, 2024 Dr. Judie Bella MD Referring Provider Active Start: December 13, 2024 End: December 13, 2024 Dr. Tawana Timmons MD Attending physician Active Start: December 13, 2024 End: December 13, 2024 Team Status: Active Member Role/Relationship Status Dates Dr. Judie Bella MD Primary care physician Active Start: December 13, 2024 Carmen Perdomo CNM Attending physician Active Start: December 13, 2024 Carmen Perdomo CNM Referring Provider Active S tart: December 13, 2024 Team Status: Inactive Member Role/Relationship Status Dates Dr. Judie Bella MD Primary care physician Active Start: December 13, 2024 End: December 13, 2024 Dr. Tawana Timmons MD Attending physician Active Start: December 13, 2024 End: December 13, 2024 Dr. Tawana Timmons MD Referring Provider Active Start: December 13, 2024 End: December 13, 2024 FOR RECORDS PERTAINING TO PATIENTS WHO [...] BE BASED ON THE PRIMARY CLINICAL RECORDS. [facility] [facility]. provides no warranty or guarantee of the accuracy or completeness of information in this document."
--- OUTSIDE RECORDS SUMMARY | 2024-12-21 17:04 | XMS RPT_ITS | CCD ---
Author Organization [facility] ion [facility] Care Team Providers Care Business Banking Sales Assistant Name Role Phone Escolas, Celio Unavailable Unavailable Rafiq Dyson Unavailable Unavailable Ericka Singer Unavailable Unavailable Escolas, Celio W Unavailable Unavailable Mishel Cartagena Unavailable Unavailable Bridger Patel Unavailable Unavailable Gera Flanagan Unavailable Unavailable Zayda Espinosa Unavailable Unavailable OBGYN IVF RDMS [id number] 1, MG OBGYN Unavailable Unavailable Escolas, Celio W Unavailable Unavailable Unavailable Mike Nicholson Unavailable Unavailable Haley Méndez Unavailable Unavailable Unavailable Unavailable Escolas, Celio Unavailable Sarina Hall Unavailable [phone] Tom Bull Unavailable Suki You Unavailable Unavailable [...] Tom Buitrago Referring Unavailable Petr-Banak, Ms. Tom Buitrgao Referring Unavailable ESCOLAS, CELIO Hankins Primary Care Unavailable Petr-Banak, Ms. Tom Buitrago Attending Unavailable Austinson, Dariela Mayfield Attending Unav ailable Austinson, Dariela Mayfield Referring Unav ailable ESCOLAS, CELIO Hankins Primary Care Unavailable Petr-Banak, Ms. Tom Buitrago Attending Unavailable ESCOLAS, CELIO Hankins Primary Care Unavailable Petr-Banak, Ms. Tom Buitrago Referring Unavailable ESCOLAS, [facility] Primary Care Unavailable Petr-Banak, Ms. Tom Buitrago [...] Unavailable ESCOLAS, CELIO Hankins Primary Care Unavailable Willow StreetKrystal Attending Unavailable Petr-Banak, Ms. Tom Buitrago Referring [...] JOSEPH DEL CID DO Attending Unavailable LIZETH GOLDSTEINN-COMMERCIAL HORTICULTURE INSTRUCTOR, SANJANA Roman Primary Care UnaCarmen Myles CNM Attending Provider [phone] Carmen Perdomo CNM Referring Provider [phone] Andressa Schmitz RN Attending Provider Unavailabl e ESCOLAS, CELIO W Attending Unavailable ESCOLAS, CELIO W Primary Care Unavailable Dr. Tawana Timmons MD Attending Provider [phone] Dr. Tawana Timmons MD Referring Provider [phone] Dr. Judie Bella MD Primary Care Provider [phone] Dr. Arnulfo Gilmore MD Attending Provider Dr. Judie Bella MD Referring Provider Dr. Anh Song DO Attending Provider Carmen Perdomo CNM Attending Provider [phone] Carmen Perdomo CNM Referring Provider 1330 NO [...] Dimas Primary Care Physician [phone] Abram oSto DO, Dr. Kamara Attending Physician Pennie DE LA CRUZ, Dr. Gilliam Attending Physician Dr. Tawana Timmons MD Referring Provider Conor SHAY, Carmen Attending Physician [phone] Abram Soto DO, Dr. Kamara Attending Physician Shayne DE LA CRUZ, Dr. Dimas Primary Care Physician [phone] Shayne DE LA CRUZ, Dr. Dimas Referring Provider [phone] Dr. Tawana Timmons MD Attending Physician Cristel MYERS-Ade Mancini Attending Physician [phone] Pennie DE LA CRUZ, Dr. Gilliam Referring Provider [phone] Andressa Schmitz Attending Unavailable Miedel, Judie Primary Care Unavailable Carmen Perdomo Referring Unavailable Carmen Perdomo Attending Unavailable Miedel, Judie Primary Care Unavailable Carmen Perdomo Referring Unavailable Carmen Perdomo Attending Unavailable Miedel, Judie Primary Care Unavailable Tawana Timmons Attending Unavailable Tawana Timmons Referring Unavailable Miedel, Judie Referring Unavailable Anh Song Attending Unavailabl e Miedel, Judie Primary Care Unavailable Miedel, Judie Referring Unavailable Ade Fam NP Attending Unavailable Miedel, Judie Primary Care Unavailable Conor, Carmen Attending Unavailable Conor, Carmen Attending Unavailable MarcanthonyTawana Attending Unavailable [facility] Unavailable Conor, Carmen Referring Unavailable Conor, Carmen Attending Unavailable MarcanthonyTawana Referring Unavailable Conor, Carmen Attending Unavailable [facility] Unavailable Conor, Carmen Attending Unavailable Conor, Carmen Referring Unavailable [facility] Unavailable Mied, Judie Referring Unavailable Conor, Carmen Attending Unavailable [facility] Primary Care Unavailable Meed, Judie Referring Unavailable Conor, Carmen Attending Unavailable [facility] Primary Care Unavailable [facility], Judie Referring Unavailable Anh Song Attending [facility] Unavailable [facility], Judie Referring Unavailable Anh Song Attending [facility] Unavailable Conor, Carmen Referring Unavailable Conor, Carmen Attending Unavailable [facility] Primary Care Unavailable Tawana Timmons Attending Unavailable Tawana Timmons Referring Unavailable [facility] Primary Care Unavailable Conor, Carmen Referring Unavailable Conor, Carmen Attending Unavailable [facility] Unavailable Conor, Carmen Attending Unavailable Conor, Carmen Referring Unavailable Conor, Carmen Referring Unavailable Conor, Carmen Attending Unavailable [facility], Judie Referring Unavailable MarcallenonyTawana Attending Unavailable [facility] Primary Care Unavailable [facility] [place] Primary Care Unavailable Miedel, Judie Referring Unavailable Conor, Carmen Attending Unavailable [facility] Primary Care Unavailable OlivieronyTawana Referring Unavailable Arnulfo Gilmore Attending Unavailable [facility] Primary Care Unavailable Tawana Timmons Attending Unavailable AldoanthonyTawana Consulting Unavailable MarcanthonyTawana Referring Unavailable Mied, Judie Referring Unavailable MarcanthonyTawana Attending Unavailable [facility] Primary Care Unavailable Conor, Carmen Referring Unavailable Conor Carmen Attending Unavailable [facility] Primary Care Unavailable MarcanthonyTawana Attending Unavailable Marcanthony, Tawana Referring Unavailable Conor, Carmen Referring Unavailable Conor, Carmen Attending Unavailable [facility] Primary Care Unavailable Allergies Allergy Classification Reported Allergen(s) Allergy Type Date of Onset Reaction(s) Facility Opioid Agonists (6 sources) Codeine; Translations: [Codeine Derivatives] Drug Allergy [facility] Work Phone: (20 sources) Codeine; Translations: [Codeine Derivatives] Drug Allergy 2 Vomiting, Nausea [facility] Work Phone: (2 sources) Codeine; Translations: [CODEINE] Drug Allergy 3 [facility] (2 sources) vilazodone; Translations: [VILAZODONE HCL] Drug Allergy 2 [facility] Medications Current Medications Medication Drug Class(es) [...] mg/ml topical lotion (1 source) Start: 04-08-2021 952368 Medication benzoyl peroxide 5 % topical cleanser benzoyl peroxide 5 % topical cleanser 5 % 1 Application topically daily 04/08/2021 Active (Current) cholecalciferol 0.01 mg oral tablet (4 sources) Vitamin D Start: 04-08-2021 151272 Medication cholecalciferol (vitamin D3) 10 mcg (400 [...] (17 sources) Proton Pump Inhibitor Start: 03-06-2021 427162 Medication dexlansoprazole 60 mg capsule,biphase delayed release [...] take 1 capsule by mouth twice daily 088366 Medication minocycline 100 mg capsule minocycline 100 [...] Ordered: 12-Dec-[address] Generic Substitution Allowed Wblquwzb-Fyd-Ea-Fa (1 source) Start: 01-11-2022 take 1 tablet by mouth once Ztieeekp-Eoj-Hd-Fa Active TABLET PO January 10, 2022 11:00pm Wqwtvyvq-Ddt-Hg-Fa 1 mg Tablet (18 sources) Start: 01-11-2022 take 1 tablet by mouth once daily Tulavwen-Fpj-Kq-Fa 1 mg Tablet Active 1 {tbl} PO DAILY January 11, 2022 12:00am Complies with drug therapy Start: 01-11-2022 take 1 tablet by mouth once Pr enatal Kftlatke-Omp-Gs-Fa 1 mg Tablet Active {tbl} PO January 11, 2022 12:00am Complies with drug therapy Start: 01-11-2022 take 1 tablet by mouth once Pr enatal Xdvrilpb-Vjl-Yo-Fa 1 mg Tablet Active {tbl} PO January 11, 2022 12:00am tretinoin 0.25 mg/ml topical cream (1 source) Retinoid Start: 04-08-2021 594254 Medicat ion tretinoin 0.025 % topical cream [...] 1:00am November 23, 2024 10:06am Start: 04-01-2021 592994 Medicat ion metformin ER 750 mg tablet,extended [...] and vagina] Episodic Other aftercare (1 source) 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 Judie Bella MD Status:DEP CLI Y DOS: Location: WPOUT Progress Notes Date of Service: 12/13/24 Progress Note: Patient presents for triage evaluation secondary to 08/13 bpp FHT: 135 Moderate variability reactive no decelerations category I tracing [place]: no regular Contractions Assessment and plan: 35 weeks abnormal testing 10/15 bpp overall reassuring Reactive NST, reassuring maternal and status patient discharged to home to follow-up []. See problem list details for additional plan information. Charges/Coding Procedures Urinary/Genital 52xxx-59xxx: 36393-86 non-stress test Interp 12/14/24 0011 Date Tawana Timmons MD Cosigner Signature (if applicable): Date CC: Dr. Judie Bella MD; Dr. Tawana Timmons MD Signed Normal [facility] OB Biophysical Prof W/O NSTo n 12-13-2024 OB Biophysical Prof W/O NST [facility] Imaging Services [address] [place], [place] [id number] OB Biophysical Prof W/O NST MR#: [id number] Acct: [id number] Name: SHU GASPAR Rep #: [id number] : 1990 F 33 From: Zachariah Razo MD PCP: Dr. Judie Bella MD Status: REG CLI Study: OB Biophysical Prof W/O NST Date of Exam: 10/30 Exam# [id number] Ordering Dr: Carmen Perdomo [facility] PROCEDURE: OB BIOPHYSICAL PROF W/O NST 12/13/2024 [...] to the office for monitoring. Reading Location: [id number] CC: AMIE Perdomo; Dr. Judie Bella MD Sports Development Officer: Signed Normal [facility] Management Professionals Office Visit Reporton 12-13-2024 Management Professionals Office Visit Report [facility]'s [address], [address] [place] [address] OFFICE VISIT Date of Service: 12/13/24 MR#: [id number] Acct: [id number] Name: SHU GASPAR Rep #: [id number] : 1990 Provider: Dr. Tawana fajardo MD Age/Sex: 33/F Location: [facility] Status: Signed Intake Vital Signs 10/02/24 09:42 12/08/24 08:49 12/13/24 09:21 Height 5 ft 2 in 5 ft 2 in 5 ft 2 in Weight: 276 lb 6 oz BMI 50.5 BP 126/85 H Intake Visit Reasons: 35 WK OB Histotechnician Required: No Is patient in pain?: No Allergies No Known Allergies Allergy (Verified 12/13/24 09:18) Medications ???Medication ???Instructions ???Recorded ???Confirmed ???Type psmyrbzn-txl-Xc-FA 1 mg tab PO 01/11/22 12/13/24 History [...] No household members: spouse and children [facility] number of children: 1 current occupational status: [...] Lgth Anesthesia Del Locatn Provider FOB 01/05/22 [place] 39 live - full term 7lbs 8oz [...] -???-???-???-???-???-???- ???-???-???-???-? (more content not included)... Normal [facility] - Chemistry and C hemistry - challengeOrdered By: Anh Brittany on 12-08-2024 Glucose Ql (U) Negative [facility] - UrinalysisOrder ed By: Anh Brittany on 12-08-2024 Protein Ql (U) Negative [facility] OB Biophysical Prof W/O NSTo n 12-08-2024 OB Biophysical Prof W/O NST [facility] Imaging Services [address] [place] [address] OB Biophysical Prof W/O NST MR#: [id number] Acct: [id number] Name: SHU GASPAR Rep #: [id number] : 1990 F 33 From: Jg cantrell MD PCP: Dr. Judie Bella MD Status: [facility] CLI Study: OB Biophysical Prof W/O NST Date of Exam: 05/30 Exam# [id number] Ordering Dr: Carmen Perdomo CNM PROCEDURE: OB [...] NST IMPRESSION: Normal biophysical profile. Reading Location: [facility] CC: AMIE Perdomo; Dr. Judie Bella MD Sports Development Officer: Signed Normal [facility] Management Professionals Office Visit Reporton 12-08-2024 Management Professionals Office Visit Report [facility]'s [address], [address] [place] [address] OFFICE VISIT Date of Service: 12/08/24 MR#: [id number] Acct: [id number] Name: SHU GASPAR Rep #: [id number] : 1990 Provider: Dr. Anh Kirk DO Age/Sex: 33/F Location: [facility] Status: Signed Intake Vital Signs 10/02/24 09:42 11/30/24 09:44 12/08/24 08:49 12/08/24 09:44 Height 5 ft 2 in 5 ft 2 in 5 ft 2 in Weight: 276 lb 4 oz 276 lb 6.4 oz BMI 50.5 BP 123/79 H 123/79 H Intake Visit Reasons: 34 wk ob Histotechnician Required: No Is patient in pain?: No Allergies No Known Allergies Allergy (Verified 12/08/24 08:49) Medications ???Medication ???Instructions ???Recorded ???Confirmed ???Type bujlgolm-mgy-Ji-FA 1 mg tab PO 01/11/22 12/08/24 History [...] Lgth Anesthesia Del Locatn Provider FOB 01/05/22 [place] 39 live - full term 7lbs 8oz Male epidural [facility] Delivery Date: 01/05/22 Last Updated by: Andressa [...] -???-???-???-???-???-???- ???-???-???-???-???-???- (more content not included)... Normal [facility] - Chemistry and C hemistry - challengeOrdered By: Ade Fam on 11-30-2024 Glucose Ql (U) Negative [facility] - UrinalysisOrder ed By: Ade Fam on 11-30-2024 Protein Ql (U) Negative [facility] OB Biophysical Prof W/O NSTo n 11-30-2024 OB Biophysical Prof W/O NST [facility] Imaging Services [address] [place] [address] OB Biophysical Prof W/O NST MR#: [id number] Acct: [id number] Name: SHU GASPAR Rep #: [id number] : 1990 F 33 From: Martinez Mckinney MD PCP: Dr. Judie Bella MD Status: REG CLI Study: OB Biophysical Prof W/O NST Date of Exam: 11/07 07/30 Exam# [id number] Ordering Dr: Carmen Perdomo CNM PROCEDURE: OB [...] CC: AMIE Perdomo; Dr. Judie Bella MD Sports Development Officer: Signed Normal [facility] Management Professionals Office Visit Reporton 11-30-2024 Management Professionals Office Visit Report [facility] [address], [address] [place] [address] OFFICE VISIT Date of Service: 11/30/24 MR#: [id number] Acct: [id number] Name: SHU GASPAR Rep #: [id number] : 1990 Provider: ALVINA chambers Age/Sex: 33/F Location: [facility] Status: Signed Intake Vital Signs 10/30/24 13:49 11/23/24 09:22 11/30/24 09:42 11/30/24 09:44 Height 5 ft 2 in 5 ft 2 in 5 ft 2 in 5 ft 2 in Weight: 277 lb 6 oz BMI 50.7 BP 129/84 H Intake Visit Reasons: 33 WK OB Chief Complaint: 33 Week OB Histotechnician Required: No Is patient in pain?: No Allergies No Known Allergies Allergy (Verified 11/30/24 09:41) Medications ???Medication ???Instructions ???Recorded ???Confirmed ???Type iowygstj-pdg-Lu-FA 1 mg tab PO 01/11/22 11/30/24 History [...] Lgth Anesthesia Del Locatn Provider FOB 01/05/22 [place] 39 live - full term 7lbs 8oz [...] -???-???-???-???-???-???- ???-???-???-? (more content not included)... Normal [facility] Management Professionals Office Visit Reporton 11-23-2024 Management Professionals Office Visit Report [facility]'s [address], [address] [place] [address] OFFICE VISIT Date of Service: 11/23/24 MR#: [id number] Acct: [id number] Name: SHU GASPAR Rep #: [id number] : 1990 Provider: Dr. Tawana fajardo MD Age/Sex: 33/F Location: [facility] Status: Signed Intake Vital Signs 10/02/24 09:42 10/30/24 13:49 11/23/24 09:22 Height 5 ft 2 in 5 ft 2 in 5 ft 2 in Weight: 268 lb 5 oz 275 lb BMI 49.1 50.3 BP 120/83 H 114/75 Intake Visit Reasons: 32 wk ob Histotechnician Required: No Is patient in pain?: No Allergies No Known Allergies Allergy (Verified 11/23/24 09:26) Medications ???Medication ???Instructions ???Recorded ???Confirmed ???Type hdryiing-tne-Ib-FA 1 mg tab PO 01/11/22 11/23/24 History [...] -???-???-???-???-???-???- ? (more content not included)... Normal [facility] OB Biophysical Prof W/O Topher n 11-20-2024 OB Biophysical Prof W/O NST [facility] Imaging Services [address] [place], [place] [address] OB Biophysical Prof W/O NST MR#: [id number] Acct: [id number] Name: SHU GASPAR Rep #: [id number] : 1990 F 33 From: Jg cantrell MD PCP: Dr. Judie Bella MD Status: REG CLI Study: OB Biophysical Prof W/O NST Date of Exam: 11/06 07/30 Exam# [id number] Ordering Dr: Carmen Perdomo CNM PROCEDURE: OB [...] biophysical profile score of 8/8. Reading Location: [facility] CC: AMIE Perdomo; Dr. Judie Bella MD Sports Development Officer: Signed Normal [facility] OB Limited With Biometricson 11-20-2024 OB Limited With Biometrics [facility] Imaging Services [address] [place], [place] [address] OB Limited With Biometrics MR#: [id number] Acct: [id number] Name: SHU GASPAR Rep #: [id number] : 1990 F 33 From: Jg cantrell MD PCP: Dr. Judie Bella MD Status: REG CLI Study: OB Limited With Biometrics Date of Exam: 11/20 Exam# [id number] Ordering Dr: Carmen Perdomo CNM PROCEDURE: OB [...] 33 weeks and 2 days. Reading Location: [place] [address] CC: AMIE Perdomo; Dr. Judie Bella MD Sports Development Officer: Signed [facility] Gestational GTT 3HR 100gon 0 11-10-2024 GEST GTT 100gm [facility] Comment on above: Order Comment: Y [...] 1024 Performed By: #### L 500.4710 #### [facility] [address] [place], [address] Quantitative serum or plasma 3 hour gestational glucose tolerance panelOrdered By: Carmen Perdomo on 11-10-2024 Glucose tolerance 3 hours gestational panel See comment [facility] Comment on above: FASTING 86 Col: 07/30 [...] Auto (Unsp spec) [#/Vol] 2.12 10*3/uL 0.83-4.51 [facility] Absolute neutrophil countOrd ered By: Carmen Perdomo on 10-30-2024 Neutrophils (Bld) [#/Vol] 7.8 10*3/uL High 2.0-7.7 [facility] Automated lymphocyte count a s percentage of total leukocytesOrdered By: Carmen Perdomo on 10-30-2024 Lymphocytes/100 WBC Auto (Unsp spec) 19.6 % 19-41 [facility] Basophil percentageOrdered B y: Carmen Perdomo on 10-30-2024 Basophils/100 WBC (Bld) 0.5 % 0-1 [facility] CBC W/Diff, Automatedon 10-07 Absolute Lymph 2.12 X10 3/uL Normal 0.83-4.51 [facility] Comment on above: Performed By: #### L 100.0100, L501.0250, L509.8002, L3890.6006 ####[facility] [address] [place], [address] Absolute Neut 7.8 X10 3/uL High 2.0-7.7 [facility] Comment on above: Performed By: #### L 100.0100, L501.0250, L509.8002, L3890.6006 ####[facility] [address] [place], [address] Basophils/100 WBC (Bld) 0.5 % Normal 0-1 [facility] Comment on above: Performed By: #### L 100.0100, L501.0250, L509.8002, L3890.6006 ####[facility] [address] [place], [address] Eosinophils/100 WBC (Bld) 1.7 % Normal 0-5 [facility] Comment on above: Performed By: #### L 100.0100, L501.0250, L509.8002, L3890.6006 ####[facility] [address] [place], [address] Erythrocyte distribution width (RBC) [Ratio] 13.7 % Normal 11.6-14.6 [facility] Comment on above: Performed By: #### L 100.0100, L501.0250, L509.8002, L3890.6006 ####[facility] [address] [place], [address] Hematocrit (Bld) [Volume fraction] 33.3 % Low 37-47 [facility] Comment on above: Performed By: #### L 100.0100, L501.0250, L509.8002, L3890.6006 ####[facility] [address] [place], [address] Hemoglobin (Bld) [Mass/Vol] 11.1 g/dL Low 12.0-15.0 [facility] Comment on above: Performed By: #### L 100.0100, L501.0250, L509.8002, L3890.6006 ####[facility] [address] [place], [address] IG% 0.500 Normal 0.0-0.9 [facility] Comment on above: Result Comment: IG% - Immature Granulocytes (promyelocytes, myelocytes and metamyelocytes) > 1% indicates that a LEFT SHIFT is Present. Performed By: #### L 100.0100, L501.0250, L509.8002, L3890.6006 ####[facility] [address] [place], [address] Lymphocytes/100 WBC (Bld) 19.6 % Normal 19-41 [facility] Comment on above: Performed By: #### L 100.0100, L501.0250, L509.8002, L3890.6006 ####[facility] [address] [place], [address] MCH (RBC) [Entitic mass] 30.0 pg Normal 27.0-32.0 [facility] Comment on above: Performed By: #### L 100.0100, L501.0250, L509.8002, L3890.6006 ####[facility] [address] [place], [address] MCHC (RBC) [Mass/Vol] 33.3 g/dL Normal 32-36 [facility] Comment on above: Performed By: #### L 100.0100, L501.0250, L509.8002, L3890.6006 ####[facility] [address] [place], [address] MCV (RBC) [Entitic vol] 90.0 fL Normal 81-99 [facility] Comment on above: Performed By: #### L 100.0100, L501.0250, L509.8002, L3890.6006 ####[facility] [address] [place], [address] Monocytes/100 WBC (Bld) 5.4 % Normal 0-10 [facility] Comment on above: Performed By: #### L 100.0100, L501.0250, L509.8002, L3890.6006 ####[facility] [address] [place], [address] Neutrophils/100 WBC (Bld) 72.3 % High 47-70 [facility] Comment on above: Performed By: #### L 100.0100, L501.0250, L509.8002, L3890.6006 ####[facility] [address] [place], [address] Nucleated RBC (Bld) [#/Vol] 0 10*3/uL Normal 0-5 [facility] Comment on above: Performed By: #### L 100.0100, L501.0250, L509.8002, L3890.6006 ####[facility] [address] [place], [address] Platelet mean volume (Bld) [Entitic vol] 11.0 fL Normal 6.2-12.0 [facility] Comment on above: Performed By: #### L 100.0100, L501.0250, L509.8002, L3890.6006 ####[facility] [address] [place], [address] Platelets (Bld) [#/Vol] 277 10*3/uL Normal 150-450 [facility] Comment on above: Performed By: #### L 100.0100, L501.0250, L509.8002, L3890.6006 ####[facility] [address] [place], [address] RBC (Bld) [#/Vol] 3.70 10*6/uL Low 4.2-5.4 [facility] Comment on above: Performed By: #### L 100.0100, L501.0250, L509.8002, L3890.6006 ####[facility] [address] [place], [address] RDW SD 44.5 fl High 35.1-43.9 [facility] Comment on above: Performed By: #### L 100.0100, L501.0250, L509.8002, L3890.6006 ####[facility] [address] [place], [address] WBC (Bld) [#/Vol] 10.8 10*3/uL Normal 4.4-11.0 [facility] Comment on above: Performed By: #### L 100.0100, L501.0250, L509.8002, L3890.6006 ####[facility] [address] [place], [place], [address] Eosinophil percentageOrdered By: Carmen Perdomo on 10-30-2024 Eosinophils/100 WBC (Bld) 1.7 % 0-5 [facility] Erythrocyte distribution wid th ratioOrdered By: Carmen Perdomo on 10-30-2024 Erythrocyte distribution width (RBC) [Ratio] 13.7 % 11.6-14.6 [facility] Erythrocyte distribution wid th standard deviationOrdered By: Carmen Perdomo on 10-30-2024 Erythrocyte distribution width (RBC) [Ratio] 44.5 fl High 35.1-43.9 [facility] Glucose Challenge Gest 1H 50 indra 10-30-2024 GLU GEST 50g 1H 138 mg/dL Normal 70-140 [facility] Comment on above: Performed By: #### L 100.0100, L501.0250, L509.8002, L3890.6006 ####[facility] [address] [place], [place], [id number] Glucose measurement at 2 nae rs post-dose gestational glucose tolerance testOrdered By: Carmen Perdomo on 10-30-2024 Glucose [Mass/Vol] 138 mg/dL 70-140 [facility] HIVon 10-30-2024 HIV Non-Reactive Normal Nonreactive [facility] Comment on above: Result Comment: Non- Reactive Reactive Repeatedly reactive samples must be confirmed according to CDC recommended confirmatory algorithms. The subresults for either HIVAG or AHIV can be used as an aid in the selection of the confirmation algorithm for reactive samples. Send out specimens with Reactive results to [facility] for confirmation. Order the HIV antibody detection and differentiation: lc#[id number] Performed By: #### L 100.0100, L501.0250, L509.8002, L3890.6006 ####[facility] [address] [place], [address] Hematocrit Auto (Bld) [Volum e fraction]Ordered By: Carmen Perdomo on 10-30-2024 Hematocrit (Bld) [Volume fraction] 33.3 % Low 37-47 [facility] Hemoglobin measurementOrdere d By: Carmen Perdomo on 10-30-2024 Hemoglobin (Bld) [Mass/Vol] 11.1 g/dL Low 12.0-15.0 [facility] Immature granulocytes/100 WB C Auto (Bld)Ordered By: Carmen Perdomo on 10-30-2024 Immature granulocytes/100 WBC (Bld) 0.500 % 0.0-0.9 [facility] Comment on above: IG% - Immature Granu locytes (promyelocytes, myelocytes and metamyelocytes) > 1% indicates that a LEFT SHIFT is Present. Laboratory - Chemistry and C hemistry - challengeOrdered By: Carmen Perdomo on 10-30-2024 Glucose Ql (U) Negative [facility] Laboratory - UrinalysisOrder ed By: Carmen Perdomo on 10-30-2024 Protein Ql (U) Negative [facility] MCV (mean corpuscular volume ) determinationOrdered By: Carmen Perdomo on 10-30-2024 MCV (RBC) [Entitic vol] 90.0 fL 81-99 [facility] Mean corpuscular hemoglobin (MCH) determinationOrdered By: Carmen Perdomo on 10-30-2024 MCH (RBC) [Entitic mass] 30.0 pg 27.0-32.0 [facility] Mean corpuscular hemoglobin concentration (MCHC) determinationOrdered By: Carmen Perdomo on 10-30-2024 MCHC (RBC) [Mass/Vol] 33.3 g/dL 32-36 [facility] Mean platelet volume determi nationOrdered By: Carmen Perdomo on 10-30-2024 Platelet mean volume (Bld) [Entitic vol] 11.0 fL 6.2-12.0 [facility] Monocyte percentageOrdered B y: Carmen Predomo on 10-30-2024 Monocytes/100 WBC (Bld) 5.4 % 0-10 [facility] Neutrophil percentageOrdered By: Carmen Perdomo on 10-30-2024 Neutrophils/100 WBC (Bld) 72.3 % High 47-70 [facility] No Panel InformationOrdered By: Carmen Perdomo on 10-30-2024 HIV (1&2) Antibody Non-Reactive Nonreactive [facility] Comment on above: Non-ReactiveReactive Repeatedly reactive samples must be confirmed according to CDC recommended confirmatory algorithms. The subresults for either HIVAG or AHIV can be used as an aid in the selection of the confirmation algorithm for reactive samples.Send out specimens with Reactive results to [facility] for confirmation.Order the HIV antibody detection and differentiation: #[id number] Nucleated red blood cell per centageOrdered By: Carmen Perdomo on 10-30-2024 Nucleated RBC/100 WBC (Bld) [Ratio] 0 % 0-5 [facility] Management Professionals Office Visit Reporton 10-30-2024 Management Professionals Office Visit Report [facility] [address], [address] [place] [address] OFFICE VISIT Date of Service: 10/30/24 MR#: [id number] Acct: [id number] Name: SHU GASPAR Rep #: [id number] : 1990 Provider: AMIE Talley ams Age/Sex: 33/F Location: [facility] Status: Signed Intake Vital Signs 09/01/24 14:59 10/02/24 09:42 10/30/24 13:49 Height 5 ft 2 in 5 ft 2 in 5 ft 2 in Weight: 265 lb 6 oz 268 lb 5 oz BMI 48.5 49.1 BP 124/83 H 120/83 H Intake Visit Reasons: 28wk ob/glucose Histotechnician Required: No Is patient in pain?: No Allergies No Known Allergies Allergy (Verified 10/30/24 13:50) Medications ???Medication ???Instructions ???Recorded ???Confirmed ???Type ltkujbrt-pkt-Lq-FA 1 mg tab PO 01/11/22 10/30/24 History [...] 178 -???-???-???-??? (more content not included)... Normal [facility] Platelet countOrdered By: Zuleyma Perdomo on 10-30-2024 Platelets (Bld) [#/Vol] 277 10*3/uL 150-450 [facility] RBC Auto (Bld) [#/Vol]Ordere d By: Carmen Perdomo on 10-30-2024 RBC (Bld) [#/Vol] 3.70 10*6/uL Low 4.2-5.4 [facility] Syphilis Antibodieson 2024 Syphilis Abs Non-Reactive Normal Nonreactive [facility] Comment on above: Performed By: #### L 100.0100, L501.0250, L509.8002, L3890.6006 ####[facility] [address] [place], [address] White blood cell (WBC) count Ordered By: Carmen Perdomo on 10-30-2024 WBC (Bld) [#/Vol] 10.8 10*3/uL 4.4-11.0 [facility] Laboratory - Chemistry and C hemistry - challengeOrdered By: Carmen Perdomo on 10-02-2024 Glucose Ql (U) Negative [facility] Laboratory - UrinalysisOrder ed By: Carmen Perdomo on 10-02-2024 Protein Ql (U) Negative [facility]essionals Office Visit Reporton 10-02-2024 Management Professionals Office Visit Report [facility]'[address], [address] [place] [address] OFFICE VISIT Date of Service: 10/02/24 MR#: [id number] Acct: [id number] Name: SHU GASPAR Rep #: [id number] : 1990 Provider: AMIE Talley ams Age/Sex: 33/F Location: [facility] Status: Signed Intake Vital Signs 07/06/24 15:06 09/01/24 14:59 10/02/24 09:42 Height 5 ft 2 in 5 ft 2 in 5 ft 2 in Weight: 265 lb 6 oz BMI 48.5 BP 124/83 H Intake Visit Reasons: 24 wk ob Chief Complaint: 24wk OB Histotechnician Required: No Is patient in pain?: No Allergies No Known Allergies Allergy (Verified 10/02/24 09:40) Medications ???Medication ???Instructions ???Recorded ???Confirmed ???Type ndsmzudt-gmj-Cu-FA 1 mg tab PO 01/11/22 10/02/24 History [...] Lgth Anesthesia Del Locatn Provider FOB 01/05/22 [place] 39 live - full term 7lbs 8oz [...] at ne (more content not included)... Normal [facility] Laboratory - Chemistry and C hemistry - challengeOrdered By: Anh Soto on 09-01-2024 Glucose Ql (U) Negative [facility] Laboratory - UrinalysisOrder ed By: Anh Soto on 09-01-2024 Protein Ql (U) Negative [facility] Management Professionals Office Visit Reporton 09-01-2024 Management Professionals Office Visit Report [facility] [address], [address] [place] [address] OFFICE VISIT Date of Service: 09/01/24 MR#: [id number] Acct: [id number] Name: SHU GASPAR Rep #: [id number] : 1990 Provider: Dr. Anh Kirk, Age/Sex: 33/F Location: [facility] Status: Signed Intake Vital Signs 06/09/24 13:11 08/02/24 11:04 09/01/24 14:57 09/01/24 14:59 Height 5 ft 2 in 5 ft 2 in 5 ft 2 in 5 ft 2 in Weight: 259 lb 2 oz BMI 47.4 BP 119/86 H Intake Visit Reasons: 20wk ob Histotechnician Required: No Is patient in pain?: No Allergies No Known Allergies Allergy (Verified 09/01/24 14:57) Medications ???Medication ???Instructions ???Recorded ???Confirmed ???Type gulutxvk-xnr-Zi-FA 1 mg tab PO 01/11/22 09/01/24 History [...] Lgth Anesthesia Del Locatn Provider FOB 01/05/22 [place] 39 live - full term 7lbs 8oz [...] -???-???-???-???-???-???- ???-???-???-???-???- (more content not included)... Normal [facility] Laboratory - Chemistry and C hemistry - challengeOrdered By: Anh Soto on 08-02-2024 Glucose Ql (U) Negative [facility] Laboratory - UrinalysisOrder ed By: Anh Soto on 08-02-2024 Protein Ql (U) Negative [facility] Management [facility]essionals Office Visit Reporton 08-02-2024 Management Professionals Office Visit Report [facility] [address], [address] [place] [address] OFFICE VISIT Date of Service: 08/02/24 MR#: [id number] Acct: [id number] Name: SHU GASPAR Rep #: [id number] : 1990 Provider: Dr. Anh Kirk DO Age/Sex: 33/F Location: [facility] Status: Signed Intake Vital Signs 06/09/24 13:11 07/06/24 15:06 08/02/24 11:02 08/02/24 11:04 Height 5 ft 2 in 5 ft 2 in 5 ft 2 in 5 ft 2 in Weight: 266 lb BMI 48.6 BP 118/75 Intake Visit Reasons: 16wk ob Histotechnician Required: No Is patient in pain?: No Allergies No Known Allergies Allergy (Verified 08/02/24 11:02) Medications ???Medication ???Instructions ???Recorded ???Confirmed ???Type lshdulpw-mgm-Kh-FA 1 mg tab PO 01/11/22 08/02/24 History [...] Lgth Anesthesia Del Locatn Provider FOB 01/05/22 [place] 39 live - full term 7lbs 8oz [...] -???-???-???-???-???-???- ???-???-???-???- (more content not included)... Normal [facility] Protein+Creatinine Ratio,Uri neon 08-02-2024 PROT:CRE RATIO 65 mg/g CRE Normal 0-200 [facility] Comment on above: Performed By: #### L 501.0900 ####[facility] [address] [place], [address] Protein (U) [Mass/Vol] 14.0 mg/dL High 0.0-12.0 [facility] Comment on above: Performed By: #### L 501.0900 ####[facility] [address] [place], [address] UR CREAT 215.00 mg/dL Normal 28.00-217.00 [facility] Comment on above: Performed By: #### L 501.0900 ####[facility] [address] [place], [address] Random urine creatinine laureano urement (mass/volume)Ordered By: Tawana Timmons on 08-02-2024 Creatinine Unsp time (U) [Mass/Vol] 215.00 mg/dL 28.00-217.00 [facility] Urine protein measurement (m ass/volume)Ordered By: Tawana Timmons on 08-02-2024 Protein (U) [Mass/Vol] 14.0 mg/dL High 0.0-12.0 [facility] Urine protein/creatinine mas s ratioOrdered By: Tawana Timmons on 08-02-2024 Protein/Creatinine (U) [Mass ratio] 65 mg/g CRE 0-200 [facility] Electrocardiogram reportOrde red By: Arnulfo Gilmore on 07-24-2024 EKG study [facility] [address] [place] [address] 12 Lead EKG 07/21/24 0905 MR#: [id number] Acct: [id number] Name: SHU GASPAR Rep #:[id number] : 1990 33 From: Arnulfo Gilmore MD Attending Dr: Dr. Tawana Timmons MD Status: REG CLI Ordering Dr: Tawana Timmons MD Victor M e: 07/21/24 Location: [facility] Sex: F C Admitted: Test [...] Abnormal ECG Confirmed by ARNULFO GILMORE MD ([id number]), editorial clerk CESAR NOLAND ([id number]) on 07/24/2024 8:54:36 AM Referred By: Tawana Timmons Confirmed By: ARNULFO GILMORE MD 07/24/24 0854 Date _ Arnulfo Gilmore MD CC: Dr. Judie Bella MD; Dr. Tawana Timmons MD ~ Signed [facility] Work Phone: 12 Lead EKGon 07-21-2024 12 Lead EKG [facility] Cardi[facility] Services [address] [place] [address] 12 Lead EKG 07/21/24904 MR#: [id number] Acct: [id number] Name: SHU GASPAR Rep #: [id number] : 1990 33 From: Arnulfo Gilmore MD Attending Dr: Dr. Tawana Timmons MD Status: REG CLI Ordering Dr: Tawana Timmons MD Date: 07/21/24 Location: [facility] Sex: F C Admitted: Test [...] by PAUL DE LA CRUZ, ARNULFO ([id number]), editorial clerk CESAR NOLAND ([id number]) on 07/24/2024 8:54:36 AM Referred By: Tawana Timmons Confirmed By: ARNULFO GILMORE MD 07/24/24 0854 Date Arnulfo Gilmore MD CC: Dr. Judie Bella MD; Dr. Tawana Timmons MD Signed Normal [facility] Absolute lymphocyte countOrd ered By: Carmen Perdomo on 07-06-2024 Lymphocytes Auto (Unsp spec) [#/Vol] 2.48 10*3/uL 0.83-4.51 [facility] Absolute neutrophil countOrd ered By: Carmen Perdomo on 07-06-2024 Neutrophils (Bld) [#/Vol] 4.7 10*3/uL 2.0-7.7 [facility] Anion gap in Serum or Plasma Ordered By: Carmen Perdomo on 07-06-2024 Anion gap [Moles/Vol] 12 mmol/L - [facility] Automated lymphocyte count a s percentage of total leukocytesOrdered By: Carmen Perdomo on 07-06-2024 Lymphocytes/100 WBC Auto (Unsp spec) 30.4 % [facility] BUN/creatinine ratioOrdered By: Carmen Perdomo on 07-06-2024 Urea nitrogen/Creatinine [Mass ratio] 19.8 mg/mg 10-20 [facility] Basophil percentageOrdered B y: Carmen Perdomo on 07-06-2024 Basophils/100 WBC (Bld) 0.6 % 0-1 [facility] Bilirubin, totalOrdered By: Carmen Perdomo on 07-06-2024 Bilirubin [Mass/Vol] mg/dL 0.00-1.30 [place] CBC W/Diff, Automatedon -2024 Absolute Lymph 2.48 X10 3/uL Normal 0.83-4.51 [facility] Comment on above: Performed By: #### L 509.4006, L509.8002, L3890.6006, L3890.6102, L3890.6301, L500.4050, L501.9985, L100.0100, L900.0098, BTS ####[facility] [address] [place], [address] Absolute Neut 4.7 X10 3/uL Normal 2.0-7.7 [facility] Comment on above: Performed By: #### L 509.4006, L509.8002, L3890.6006, L3890.6102, L3890.6301, L500.4050, L501.9985, L100.0100, L900.0098, BTS ####[facility] [address] [place], [address] Basophils/100 WBC (Bld) 0.6 % Normal 0-1 [facility] Comment on above: Performed By: #### L 509.4006, L509.8002, L3890.6006, L3890.6102, L3890.6301, L500.4050, L501.9985, L100.0100, L900.0098, BTS ####[facility] [address] [place], [address] Eosinophils/100 WBC (Bld) 3.4 % Normal 0-5 [facility] Comment on above: Performed By: #### L 509.4006, L509.8002, L3890.6006, L3890.6102, L3890.6301, L500.4050, L501.9985, L100.0100, L900.0098, BTS ####[facility] [address] [place], [place], [phone](675) Erythrocyte distribution width (RBC) [Ratio] 13.1 % Normal 11.6-14.6 [facility] Comment on above: Performed By: #### L 509.4006, L509.8002, L3890.6006, L3890.6102, L3890.6301, L500.4050, L501.9985, L100.0100, L900.0098, BTS ####[facility] [address] [place], [place], [phone](833) Hematocrit (Bld) [Volume fraction] 34.6 % Low 37-47 [facility] Comment on above: Performed By: #### L 509.4006, L509.8002, L3890.6006, L3890.6102, L3890.6301, L500.4050, L501.9985, L100.0100, L900.0098, BTS ####[facility] [address] [place], [place], [phone](427) Hemoglobin (Bld) [Mass/Vol] 11.6 g/dL Low 12.0-15.0 [facility] Comment on above: Performed By: #### L 509.4006, L509.8002, L3890.6006, L3890.6102, L3890.6301, L500.4050, L501.9985, L100.0100, L900.0098, BTS ####[facility] [address] [place], [address] IG% 0.400 Normal 0.0-0.9 [facility] Comment on above: Result Comment: IG% - Immature Granulocytes (promyelocytes, myelocytes and metamyelocytes) > 1% indicates that a LEFT SHIFT is Present. Performed By: #### L 509.4006, L509.8002, L3890.6006, L3890.6102, L3890.6301, L500.4050, L501.9985, L100.0100, L900.0098, BTS ####[facility] [address] [facility] [place], [place], [phone](381) Lymphocytes/100 WBC (Bld) 30.4 % Normal 19-41 [facility] Comment on above: Performed By: #### L 509.4006, L509.8002, L3890.6006, L3890.6102, L3890.6301, L500.4050, L501.9985, L100.0100, L900.0098, BTS ####[facility] [address] [place], [place], [phone] MCH (RBC) [Entitic mass] 29.7 pg Normal 27.0-32.0 [facility] Comment on above: Performed By: #### L 509.4006, L509.8002, L3890.6006, L3890.6102, L3890.6301, L500.4050, L501.9985, L100.0100, L900.0098, BTS ####[facility] [address] [place], [place], [phone] MCHC (RBC) [Mass/Vol] 33.5 g/dL Normal 32-36 [facility] Comment on above: Performed By: #### L 509.4006, L509.8002, L3890.6006, L3890.6102, L3890.6301, L500.4050, L501.9985, L100.0100, L900.0098, BTS ####[facility] [address] [facility] [place] [place], [address] MCV (RBC) [Entitic vol] 88.7 fL Normal 81-99 [facility] Comment on above: Performed By: #### L 509.4006, L509.8002, L3890.6006, L3890.6102, L3890.6301, L500.4050, L501.9985, L100.0100, L900.0098, BTS ####[facility] [address] [place], [address] Monocytes/100 WBC (Bld) 7.6 % Normal 0-10 [facility] Comment on above: Performed By: #### L 509.4006, L509.8002, L3890.6006, L3890.6102, L3890.6301, L500.4050, L501.9985, L100.0100, L900.0098, BTS ####[facility] [address] [place], [place], [phone] Neutrophils/100 WBC (Bld) 57.6 % Normal 47-70 [facility] Comment on above: Performed By: #### L 509.4006, L509.8002, L3890.6006, L3890.6102, L3890.6301, L500.4050, L501.9985, L100.0100, L900.0098, BTS ####[facility] [address] [place], [address](307) Nucleated RBC (Bld) [#/Vol] 0 10*3/uL Normal 0-5 [facility] Comment on above: Performed By: #### L 509.4006, L509.8002, L3890.6006, L3890.6102, L3890.6301, L500.4050, L501.9985, L100.0100, L900.0098, BTS ####[facility] [address] [place], [address]( Platelet mean volume (Bld) [Entitic vol] 10.8 fL Normal 6.2-12.0 [facility] Comment on above: Performed By: #### L 509.4006, L509.8002, L3890.6006, L3890.6102, L3890.6301, L500.4050, L501.9985, L100.0100, L900.0098, BTS ####[facility] [address] [place], [address](337) Platelets (Bld) [#/Vol] 283 10*3/uL Normal 150-450 [facility] Comment on above: Performed By: #### L 509.4006, L509.8002, L3890.6006, L3890.6102, L3890.6301, L500.4050, L501.9985, L100.0100, L900.0098, BTS ####[facility] [address] [place], [address](373) RBC (Bld) [#/Vol] 3.90 10*6/uL Low 4.2-5.4 [facility] Comment on above: Performed By: #### L 509.4006, L509.8002, L3890.6006, L3890.6102, L3890.6301, L500.4050, L501.9985, L100.0100, L900.0098, BTS ####[facility] [address] [place], [address](925) RDW SD 42.6 fl Normal 35.1-43.9 [facility] Comment on above: Performed By: #### L 509.4006, L509.8002, L3890.6006, L3890.6102, L3890.6301, L500.4050, L501.9985, L100.0100, L900.0098, BTS ####[facility] [address] [place], [address](292) WBC (Bld) [#/Vol] 8.2 10*3/uL Normal 4.4-11.0 [facility] Comment on above: Performed By: #### L 509.4006, L509.8002, L3890.6006, L3890.6102, L3890.6301, L500.4050, L501.9985, L100.0100, L900.0098, BTS ####[facility] [address] [place], [place], [phone] Carbon dioxide, total [Moles /volume] in Central venous bloodOrdered By: Carmen Perdomo on 07-06-2024 CO2 [Moles/Vol] 22.8 mmol/L 21.0-32.0 [facility] Chloride assayOrdered By: Zuleyma Perdomo on 07-06-2024 Chloride [Moles/Vol] 103 mmol/L 98-108 [place] Prof ilon 07-06-2024 Albumin [Mass/Vol] 3.6 g/dL Normal 3.5-5.0 [facility] Comment on above: Performed By: #### L 509.4006, L509.8002, L3890.6006, L3890.6102, L3890.6301, L500.4050, L501.9985, L100.0100, L900.0098, BTS ####[facility] [address] [place], [place], [phone] Albumin/Globulin [Mass ratio] 1.3 {ratio} Normal 0.9-2.4 [facility] Comment on above: Performed By: #### L 509.4006, L509.8002, L3890.6006, L3890.6102, L3890.6301, L500.4050, L501.9985, L100.0100, L900.0098, BTS ####[facility] [address] [place], [place], [phone] ALK PHOS 58 U/L Normal 35-104 [facility] Comment on above: Performed By: #### L 509.4006, L509.8002, L3890.6006, L3890.6102, L3890.6301, L500.4050, L501.9985, L100.0100, L900.0098, BTS ####[facility] [address] [place], [place], [phone](588) ALT [Catalytic activity/Vol] 15 U/L Normal <=34 [facility] Comment on above: Performed By: #### L 509.4006, L509.8002, L3890.6006, L3890.6102, L3890.6301, L500.4050, L501.9985, L100.0100, L900.0098, BTS ####[facility] [address] [place], [place], [phone] AST [Catalytic activity/Vol] 16 U/L Normal <=31 [facility] Comment on above: Performed By: #### L 509.4006, L509.8002, L3890.6006, L3890.6102, L3890.6301, L500.4050, L501.9985, L100.0100, L900.0098, BTS ####[facility] [address] [place], [place], [phone] BUN/CRE 19.8 RATIO Normal 10-20 [facility] Comment on above: Performed By: #### L 509.4006, L509.8002, L3890.6006, L3890.6102, L3890.6301, L500.4050, L501.9985, L100.0100, L900.0098, BTS ####[facility] [address] [place], [place], [phone] Calcium [Mass/Vol] 9.3 mg/dL Normal 7.6-11.0 [facility] Comment on above: Performed By: #### L 509.4006, L509.8002, L3890.6006, L3890.6102, L3890.6301, L500.4050, L501.9985, L100.0100, L900.0098, BTS ####[facility] [address] [place], [place], [phone](811) Chloride [Moles/Vol] 103 mmol/L Normal 98-108 [facility] Comment on above: Performed By: #### L 509.4006, L509.8002, L3890.6006, L3890.6102, L3890.6301, L500.4050, L501.9985, L100.0100, L900.0098, BTS ####[facility] [address] [place], [place], [phone](517) CO2 [Moles/Vol] 22.8 mmol/L Normal 21.0-32.0 [facility] Comment on above: Performed By: #### L 509.4006, L509.8002, L3890.6006, L3890.6102, L3890.6301, L500.4050, L501.9985, L100.0100, L900.0098, BTS ####[facility] [address] [facility] [place], [place], [phone](991) Creatinine [Mass/Vol] 0.53 mg/dL Low 0.70-1.20 [facility] Comment on above: Performed By: #### L 509.4006, L509.8002, L3890.6006, L3890.6102, L3890.6301, L500.4050, L501.9985, L100.0100, L900.0098, BTS ####[facility] [address] [place], [place], [phone](336) GAP 12 Normal 5-15 [facility] Comment on above: Performed By: #### L 509.4006, L509.8002, L3890.6006, L3890.6102, L3890.6301, L500.4050, L501.9985, L100.0100, L900.0098, BTS ####[facility] [address] [place], [address] GFR/1.73 sq M.predicted among non-blacks MDRD (S/P/Bld) [Vol rate/Area] 124 mL/min/{1.73_m2} Normal >60 [facility] Comment on above: Result Comment: mL/m in/1.73m2 CKD-EPI Creatinine Equation (2020) Performed By: #### L 509.4006, L509.8002, L3890.6006, L3890.6102, L3890.6301, L500.4050, L501.9985, L100.0100, L900.0098, BTS ####[facility] [id number] [place], [address] Globulin (S) [Mass/Vol] 2.7 g/dL Normal 2.2-4.2 [facility] Comment on above: Performed By: #### L 509.4006, L509.8002, L3890.6006, L3890.6102, L3890.6301, L500.4050, L501.9985, L100.0100, L900.0098, BTS ####[facility] [id number] [place], [address] Glucose [Mass/Vol] 99 mg/dL Normal 70-99 [facility] Comment on above: Performed By: #### L 509.4006, L509.8002, L3890.6006, L3890.6102, L3890.6301, L500.4050, L501.9985, L100.0100, L900.0098, BTS ####[facility] [address] [place], [address] Potassium [Moles/Vol] 3.8 mmol/L Normal 3.3-5.1 [facility] Comment on above: Performed By: #### L 509.4006, L509.8002, L3890.6006, L3890.6102, L3890.6301, L500.4050, L501.9985, L100.0100, L900.0098, BTS ####[facility] [address] [place], [place], [phone](013) Sodium [Moles/Vol] 138 mmol/L Normal 133-145 [facility] Comment on above: Performed By: #### L 509.4006, L509.8002, L3890.6006, L3890.6102, L3890.6301, L500.4050, L501.9985, L100.0100, L900.0098, BTS ####[facility] [address] [place], [place], [phone](734) T BILI < 0.15 Normal 0.00-1.30 [facility] Comment on above: Performed By: #### L 509.4006, L509.8002, L3890.6006, L3890.6102, L3890.6301, L500.4050, L501.9985, L100.0100, L900.0098, BTS ####[facility] [address] [place], [place], [phone](350) T PROT 6.3 g/dL Normal 5.9-8.4 [facility] Comment on above: Performed By: #### L 509.4006, L509.8002, L3890.6006, L3890.6102, L3890.6301, L500.4050, L501.9985, L100.0100, L900.0098, BTS ####[facility] [address] [place], [place], [phone](727) Urea nitrogen [Mass/Vol] 10 mg/dL Normal 4-19 [facility] Comment on above: Performed By: #### L 509.4006, L509.8002, L3890.6006, L3890.6102, L3890.6301, L500.4050, L501.9985, L100.0100, L900.0098, BTS ####[facility] [address] [place], [place], [address] Eosinophil percentageOrdered By: Carmen Perdomo on 07-06-2024 Eosinophils/100 WBC (Bld) 3.4 % 0-5 [facility] Erythrocyte distribution wid th ratioOrdered By: Carmen Perdomo on 07-06-2024 Erythrocyte distribution width (RBC) [Ratio] 13.1 % 11.6-14.6 [facility] Erythrocyte distribution wid th standard deviationOrdered By: Carmen Perdomo on 07-06-2024 Erythrocyte distribution width (RBC) [Ratio] 42.6 fl 35.1-43.9 [facility] Glomerular filtration rate ( GFR) estimation/1.73 sq m using serum, plasma, or whole bOrdered By: Carmen Perdomo on 07-06-2024 GFR/1.73 sq M.predicted among non-blacks MDRD (S/P/Bld) [Vol rate/Area] 124 mL/min/{1.73_m2} >60 [facility] Comment on above: mL/min/1.73m2 CKD-EP I Creatinine Equation (2020) HIVon 07-06-2024 HIV Non-Reactive Normal Nonreactive [facility] Comment on above: Result Comment: Non- Reactive Reactive Repeatedly reactive samples must be confirmed according to CDC recommended confirmatory algorithms. The subresults for either HIVAG or AHIV can be used as an aid in the selection of the confirmation algorithm for reactive samples. Send out specimens with Reactive results to [facility] for confirmation. Order the HIV antibody detection and differentiation: lc#[id number] Performed By: #### L 509.4006, L509.8002, L3890.6006, L3890.6102, L3890.6301, L500.4050, L501.9985, L100.0100, L900.0098, BTS ####[facility] [address] [place], [place], [phone] Hematocrit Auto (Bld) [Volum e fraction]Ordered By: Carmen Perdomo on 07-06-2024 Hematocrit (Bld) [Volume fraction] 34.6 % Low 37-47 [facility] Hemoglobin A1con 07-06-2024 HbA1c (Bld) [Mass fraction] 5.0 % Normal <=5.6 [facility] Comment on above: Result Comment: Norm al < 5.7 % Prediabetic 5.7 - 6.4 % Diabetic >or= 6.5 % Please note range changes. Performed By: #### L 509.4006, L509.8002, L3890.6006, L3890.6102, L3890.6301, L500.4050, L501.9985, L100.0100, L900.0098, BTS ####[facility] [address] [place], [address] Hemoglobin A1c percentageOrd ered By: Carmen Perdomo on 07-06-2024 HbA1c (Bld) [Mass fraction] 5.0 % <5.7 [facility] Comment on above: Normal < 5.7 % Predi abetic 5.7 - 6.4 % Diabetic >or= 6.5 % Please note range changes. Hemoglobin measurementOrdere d By: Carmen Perdomo on 07-06-2024 Hemoglobin (Bld) [Mass/Vol] 11.6 g/dL Low 12.0-15.0 [facility] Hepatitis C Antibodyon 07-06 Hepatitis C Ab Non-Reactive Normal Nonreactive [facility] Comment on above: Result Comment: Reac tive: Presumptive evidence of antibodies to HCV. Follow CDC recommendations for supplemental testing. Non-Reactive: Antibodies to HCV were not detected; does not exclude the possibility of exposure to HCV Reactive Results are presumptive evidence of antibodies to HCV. Follow CDC recommendations for supplemental testing. Order confirmation testing: HCV Quant by PCR testing - HCVPCR #[id number] Non Reactive: < 0.8 Equivocal: >/= 0.8 to < 1.0 Reactive: >/= 1.0 The CDC requires that a reactive/equivocal HCV antibody result be sent out for confirmation. HCV Quant by PCR testing. Performed By: #### L 509.4006, L509.8002, L3890.6006, L3890.6102, L3890.6301, L500.4050, L501.9985, L100.0100, L900.0098, BTS ####[facility] [address] [place], [address] Immature granulocytes/100 WB C Auto (Bld)Ordered By: Carmen Perdomo on 07-06-2024 Immature granulocytes/100 WBC (Bld) 0.400 % 0.0-0.9 [facility] Comment on above: IG% - Immature Granu locytes (promyelocytes, myelocytes and metamyelocytes) > 1% indicates that a LEFT SHIFT is Present. L3890.6102on 07-06-2024 HEP B Surf Ag Non-Reactive Normal Nonreactive [facility] Comment on above: Result Comment: Reac tive: Presumptive evidence of HBV. Repeatedly reactive samples must be confirmed using a neutralization test ([employer] HBsAg Confirmatory Test) Non-Reactive: HBsAg not detected; does not exclude the possibility of exposure to HBV Performed By: #### L 509.4006, L509.8002, L3890.6006, L3890.6102, L3890.6301, L500.4050, L501.9985, L100.0100, L900.0098, BTS ####[facility] [address] [place], [address] L509.4006on 07-06-2024 Rubella IgG REAC Normal Nonreactive [facility] Comment on above: Result Comment: Anti body Result: Interpretation Non-Reactive: Non-Immune Reactive: Immune The following results were obtained with the [employer] Rubella IgG assay. Results from assays of other manufacturers cannot be used interchangeably. Performed By: #### L 509.4006, L509.8002, L3890.6006, L3890.6102, L3890.6301, L500.4050, L501.9985, L100.0100, L900.0098, BTS ####[facility] [address] [facility] [place], [place], [phone] Laboratory - Chemistry and C hemistry - challengeOrdered By: Carmen Perdomo on 07-06-2024 AST [Catalytic activity/Vol] 16 U/L <32 [facility] Laboratory - Microbiology an d Antimicrobial susceptibilityOrdered By: Carmen Perdomo on 07-06-2024 HBV surface Ag Ql (S) Non-Reactive Nonreactive [facility] Comment on above: Reactive: Presumptiv e evidence of HBV. Repeatedly reactive samples must be confirmed using a neutralization test ([employer] HBsAg Confirmatory Test)Non-Reactive: HBsAg not detected; does not exclude the possibility of exposure to HBV MCV (mean corpuscular volume ) determinationOrdered By: Carmen Perdomo on 07-06-2024 MCV (RBC) [Entitic vol] 88.7 fL 81-99 [facility] Mean corpuscular hemoglobin (MCH) determinationOrdered By: Carmen Perdomo on 07-06-2024 MCH (RBC) [Entitic mass] 29.7 pg 27.0-32.0 [facility] Mean corpuscular hemoglobin concentration (MCHC) determinationOrdered By: Carmen Perdomo on 07-06-2024 MCHC (RBC) [Mass/Vol] 33.5 g/dL 32-36 [facility] Mean platelet volume determi nationOrdered By: Carmen Perdomo on 07-06-2024 Platelet mean volume (Bld) [Entitic vol] 10.8 fL 6.2-12.0 [facility] Monocyte percentageOrdered B y: Carmen Perdomo on 07-06-2024 Monocytes/100 WBC (Bld) 7.6 % 0-10 [facility] NATERAon 07-06-2024 NATURA SEE SCANNED REPORT Normal [facility] Comment on above: Performed By: #### L 509.4006, L509.8002, L3890.6006, L3890.6102, L3890.6301, L500.4050, L501.9985, L100.0100, L900.0098, BTS ####[facility] [address] [place], [place], [phone] Neutrophil percentageOrdered By: Carmen Perdomo on 07-06-2024 Neutrophils/100 WBC (Bld) 57.6 % 47-70 [facility] No Panel InformationOrdered By: Carmen Perdomo on 07-06-2024 HIV (1&2) Antibody Non-Reactive Nonreactive [facility] Comment on above: Non-ReactiveReactive Repeatedly reactive samples must be confirmed according to CDC recommended confirmatory algorithms. The subresults for either HIVAG or AHIV can be used as an aid in the selection of the confirmation algorithm for reactive samples.Send out specimens with Reactive results to [facility] for confirmation.Order the HIV antibody detection and differentiation: #[id number] Nucleated red blood cell per centageOrdered By: Carmen Perdomo on 07-06-2024 Nucleated RBC/100 WBC (Bld) [Ratio] 0 % 0-5 [facility] Management Professionals Office Visit Reporton 07-06-2024 Management Professionals Office Visit Report [facility]'s [address], [address] [place] [address] OFFICE VISIT Date of Service: 07/06/24 MR#: [id number] Acct: [id number] Name: SHU GASPAR Rep #: [id number] : 1990 Provider: Dr. Tawana fajardo MD Age/Sex: 33/F Location: [facility] Status: Signed Intake Vital Signs 05/03/24 12:07 06/09/24 13:11 07/06/24 15:06 Height 5 ft 2 in 5 ft 2 in 5 ft 2 in Weight: 251 lb 8 oz BMI 46.0 BP 123/85 H Intake Visit Reasons: 12wk OB Histotechnician Required: No Is patient in pain?: No Allergies No Known Allergies Allergy (Verified 07/06/24 15:07) Medications ???Medication ???Instructions ???Recorded ???Confirmed ???Type btkglbui-bxh-Zj-FA 1 mg tab PO 01/11/22 07/06/24 History [...] with d (more content not included)... Normal [facility] Platelet countOrdered By: Zuleyma Perdomo on 07-06-2024 Platelets (Bld) [#/Vol] 283 10*3/uL 150-450 [facility] Potassium measurement (mass/ volume)Ordered By: Carmen Perdomo on 07-06-2024 Potassium (Unsp spec) [Mass/Vol] 3.8 mmol/L 3.3-5.1 [facility] RBC Auto (Bld) [#/Vol]Ordere d By: Carmen Perdomo on 07-06-2024 RBC (Bld) [#/Vol] 3.90 10*6/uL Low 4.2-5.4 [facility] Serum creatinine measurement (mass/volume)Ordered By: Carmen Perdomo on 07-06-2024 Creatinine [Mass/Vol] 0.53 mg/dL Low 0.70-1.20 [facility] Serum globulin measurementOr dered By: Carmen Perdomo on 07-06-2024 Globulin (S) [Mass/Vol] 2.7 g/dL 2.2-4.2 [facility] Serum glucose measurement (m ass/volume)Ordered By: Carmen Perdomo on 07-06-2024 Glucose [Mass/Vol] 99 mg/dL 70-99 [facility] Serum or plasma alanine agarwal otransferase (ALT) measurementOrdered By: Carmen Perdomo on 07-06-2024 ALT [Catalytic activity/Vol] 15 U/L <35 [facility] Serum or plasma albumin laureano urement (mass/volume)Ordered By: Carmen Perdomo on 07-06-2024 Albumin [Mass/Vol] 3.6 g/dL 3.5-5.0 [facility] Serum or plasma albumin/glob ulin mass ratioOrdered By: Carmen Perdomo on 07-06-2024 Albumin/Globulin [Mass ratio] 1.3 {ratio} 0.9-2.4 [facility] Serum or plasma alkaline aylin sphatase measurementOrdered By: Carmen Perdomo on 07-06-2024 ALP [Catalytic activity/Vol] 58 U/L 35-104 [facility] Serum or plasma calcium laureano urement (mass/volume)Ordered By: Carmen Perdomo on 07-06-2024 Calcium [Mass/Vol] 9.3 mg/dL 7.6-11.0 [facility] Serum or plasma urea nitroge n measurement (mass/volume)Ordered By: Carmen Perdomo on 07-06-2024 Urea nitrogen [Mass/Vol] 10 mg/dL 4-19 [facility] Sodium levelOrdered By: Wandy Perdomo on 07-06-2024 Sodium [Moles/Vol] 138 mmol/L 133-145 [facility] Syphilis Antibodieson 2024 Syphilis Abs Non-Reactive Normal Nonreactive [facility] Comment on above: Performed By: #### L 509.4006, L509.8002, L3890.6006, L3890.6102, L3890.6301, L500.4050, L501.9985, L100.0100, L900.0098, BTS ####[facility] [address] [place], [place], [phone] Total proteinOrdered By: Viraj Perdomo on 07-06-2024 Protein [Mass/Vol] 6.3 g/dL 5.9-8.4 [facility] Type AND Screenon 07-06-2024 ABO and Rh group Nom (Bld) Blood group A Rh(D) positive Normal [facility] Comment on above: Order Comment: PN Performed By: #### L 509.4006, L509.8002, L3890.6006, L3890.6102, L3890.6301, L500.4050, L501.9985, L100.0100, L900.0098, BTS ####[facility] [address] [place], [place], [phone] White blood cell (WBC) count Ordered By: Carmen Perdomo on 07-06-2024 WBC (Bld) [#/Vol] 8.2 10*3/uL 4.4-11.0 [facility] Chlamydia/GC MCKENZIE aptimaon CHLAMY,NUC ACID Negative Normal Negative [facility] Comment on above: Performed By: #### L 501.0900, M100.2200, L7000.1800 ####[facility] [address] [place], [address] GC BY NUC ACID Negative Normal Negative [facility] Comment on above: Result Comment: Perf ormed at: =G - [facility] [address] [id number] Professional Tutor: Abbie Siu MD, Phone: [phone] Performed By: #### L 501.0900, M100.2200, L7000.1800 ####[facility] [address] [place], [address] Urine Cultureon 06-12-2024 URC Below infection leve l. Mixed Gram Pos Gram Neg Org [place] Count 1000-10,000 MIXC Mixed contaminants. Submit a new specimen if indicated. Normal [facility] Comment on above: Performed By: #### L 501.0900, M100.2200, L7000.1800 ####[facility] [address] [place], [address] Chlamydia trachomatis rRNA d etection by probe and target amplification methodOrdered By: Carmen Perdomo on 06-09-2024 C. trachomatis rRNA MCKENZIE+probe Ql (Unsp spec) Negative Negative [facility] Creatinine Unsp time (U) [Ma ss/Vol]Ordered By: Carmen Perdomo on 06-09-2024 Creatinine (U) [Mass/Vol] 202.00 mg/dL 28.00-217.00 [facility] Neisseria gonorrhoeae nuclei c acid detection by amplified probe techniqueOrdered By: Carmen Perdomo on 06-09-2024 N. gonorrhoeae DNA MCKENZIE+probe Ql (Unsp spec) Negative Negative [facility] Comment on above: Performed at: =G - [facility] [address] [id number] Director: Abbie Siu MD, Phone: [phone] [employer] [facility]essionals Office Visit Reporton 06-09-2024 Management Professionals Office Visit Report [facility]'[address], [address] [place] [address] OFFICE VISIT Date of Service: 06/09/24 MR#: [id number] Acct: [id number] Name: SHU GASPAR Rep #: [id number] : 1990 Provider: AMIE Talley ams Age/Sex: 33/F Location: [facility] Status: Signed Intake Vital Signs 05/03/24 12:07 06/09/24 13:11 Height 5 ft 2 in 5 ft 2 in Weight: 254 lb 8 oz BMI 46.5 BP 125/80 H Intake Visit Reasons: NOB LMP 2/2 Chief Complaint: New OB Histotechnician Required: No Is patient in pain?: No Allergies No Known Allergies Allergy (Verified 06/09/24 13:06) Medications ???Medication ???Instructions ???Recorded ???Confirmed ???Type gwslfgus-yfd-Oe-FA 1 mg tab PO 01/11/22 06/09/24 History [...] dates. Acce (more content not included)... Normal [facility] Protein+Creatinine Ratio,Uri neon 06-09-2024 PROT:CRE RATIO 119 mg/g CRE Normal 0-200 [facility] Comment on above: Performed By: #### L 501.0900, M100.2200, L7000.1800 ####[facility] [address] [place], [phone] Protein (U) [Mass/Vol] 24.0 mg/dL High 0.0-12.0 [facility] Comment on above: Performed By: #### L 501.0900, M100.2200, L7000.1800 ####[facility] [address] [place], [address] UR CREAT 202.00 mg/dL Normal 28.00-217.00 [facility] Comment on above: Performed By: #### L 501.0900, M100.2200, L7000.1800 ####[facility] [address] [place], [address] Protein/Creatinine (U) [Mass ratio]Ordered By: Carmen Perdomo on 06-09-2024 Urine Protein/Creatinine Ratio 119 mg/g CRE 0-200 [facility] Random urine creatinine laureano urement (mass/volume)Ordered By: Carmen Perdomo on 06-09-2024 Creatinine Unsp time (U) [Mass/Vol] 202.00 mg/dL 28.00-217.00 [facility] Urine cultureOrdered By: Viraj Perdomo on 06-09-2024 Bacteria identified Cx Nom (U) Mixed Gram Pos & Gram Neg Org Abnormal [facility] Urine protein measurement (m ass/volume)Ordered By: Carmen Perdomo on 06-09-2024 Protein (U) [Mass/Vol] 24.0 mg/dL High 0.0-12.0 [facility] Urine protein/creatinine mas s ratioOrdered By: Carmen Perdomo on 06-09-2024 Protein/Creatinine (U) [Mass ratio] 119 mg/g CRE 0-200 [facility] PAP IG HPV APTIMA 16/18,45on 05-08-2024 ADEQ Comment Normal . [facility] Comment on above: Order Comment: Speci men Comment: [id number] Comment: No. of containers..01 ThinPrep Vial Result Comment: Sati sfactory for evaluation. Endocervical and/or squamous metaplastic cells (endocervical component) are present. Performed By: #### L 7400.0280 ####[facility] [address] [place], [address] COMM . Normal . [facility] Comment on above: Order Comment: Speci men Comment: [id number] Comment: No. of containers..01 ThinPrep Vial Performed By: #### L 7400.0280 ####[facility] [address] [place], [place], [address] COMMENT Comment Normal . [facility] Comment on above: Order Comment: Speci men Comment: [id number] Comment: No. of containers..01 ThinPrep Vial Result Comment: This liquid based ThinPrep(R) pap test was screened with the use of an image guided system. Performed By: #### L 7400.0280 ####[facility] [address] [place], [address] DIAG Comment Normal . [facility] Comment on above: Order Comment: Speci men Comment: [id number] Comment: No. of containers..01 ThinPrep Vial Result Comment: NEGA TIVE FOR INTRAEPITHELIAL LESION OR MALIGNANCY. CELLULAR CHANGES ASSOCIATED WITH INFLAMMATION ARE PRESENT. Performed By: #### L 7400.0280 ####[facility] [address] [place], [address] HPV APTIMA, HR Negative Normal Negative [facility] Comment on above: Order Comment: Speci men Comment: [id number] Comment: No. of containers..01 ThinPrep Vial Result Comment: This nucleic acid amplification test detects fourteen high- risk HPV types (16,18,31,33,35,39,45,51,52,56,58,59,66,68) without differentiation. Performed By: #### L 7400.0280 ####[facility] [address] [place], [address] HPV Genna Rfx Comment Normal . [facility] Comment on above: Order Comment: Speci men Comment: [id number] Comment: No. of containers..01 ThinPrep Vial Result Comment: Crit eria not met, HPV Genotype not performed. Performed at: [address] [id number] Professional Tutor: Abbie Siu MD, Phone: [phone] Performed at: =[address] [id number] Professional Tutor: Abbie Siu MD, Phone: [phone] Performed By: #### L 7400.0280 ####[facility] [address] [place], [place], [address] PAPSMR Comment Normal . [facility] Comment on above: Order Comment: Speci men Comment: [id number] Comment: No. of containers..01 ThinPrep Vial Result Comment: The Pap smear is a screening test designed to aid in the detection of premalignant and malignant conditions of the uterine cervix. It is not a diagnostic procedure and should not be used as the sole means of detecting cervical cancer. Both false-positive and false-negative reports do occur. Performed By: #### L 7400.0280 ####[facility] [address] [place], [place], [address] PERFORM Comment Normal . [facility] Comment on above: Order Comment: Speci men Comment: [id number] Comment: No. of containers..01 ThinPrep Vial Result Comment: Hipolito Fields, Beading Machine Operator Performed By: #### L 7400.0280 ####[facility] [address] [place], [place], [phone] Cervical or vaginal specimen microscopic examination by liquid based cytology (reportOrdered By: Carmen Perdomo on 05-03-2024 Cytology report Cyto stain.thin prep Doc (Cvx/Vag) Comment . [facility] Comment on above: Criteria not met, HP V Genotype not performed.Performed at: - [address] [id number] Director: Abbie Siu MD, Phone: [phone] at: =[address] [id number] Director: Abbie Siu MD, Phone: [phone] Cervical or vagninal specime n microscopic examination by cytology stain (reported asOrdered By: Carmen Perdomo on 05-03-2024 Cytology report Cyto stain Doc (Cvx/Vag) Comment . [facility] Comment on above: The Pap smear is a s creening test designed to aid in thedetection of premalignant and malignant conditions of theuterine cervix. It is not a diagnostic procedure andshould not be used as the sole means of detecting cervicalcancer. Both false-positive and false-negative reports dooccur. Stage Set Designer Cyto stain Nom (C vx/Vag) [ID]Ordered By: Carmen Perdomo on 05-03-2024 Pap Smear Performed By Comment . [facility] Comment on above: Soco Fields, Cyto technologist Cytology report Cyto stain D oc (Cvx/Vag)Ordered By: Carmen Perdomo on 05-03-2024 Thin Prep Pap Smear Comment . [facility] Comment on above: The Pap smear [...] 05-03-2024 HPV Genotype Special Info Comment . [facility] Comment on above: Criteria not met, HP V Genotype not performed.Performed at: - [facility] [id number] Director: Abbie Siu MD, Phone: [phone] at: = - [facility] [address] [id number] Director: Abbie Siu MD, Phone: [phone] Detection in cervical specim en of any of human papilloma virus (HPV) 16, 18, 31, 33,Ordered By: Carmen Perdomo on 05-03-2024 HPV 16+18+31+33+35+39+45+5 1+52+56+58+59+66+68 DNA Probe+sig amp Ql (Cvx) Negative Negative [facility] Comment on above: This nucleic acid am plification test detects fourteen high- risk HPV types (16,18,31,33,35,39,45,51,52,56,58,59,66,68)without differentiation. HPV 16+18+31+33+35+39+45+51+ 52+56+58+59+66+68 DNA Probe+sig amp Ql (Cvx)Ordered By: Carmen Perdomo on 05-03-2024 Human Papillomavirus High Risk Negative Negative [facility] Comment on above: This nucleic acid am plification test detects fourteen high- risk HPV types (16,18,31,33,35,39,45,51,52,56,58,59,66,68)without differentiation. Image-guided ThinPrep PapOrd ered By: Carmen Perdomo on 05-03-2024 Pap Smear Note Comment . [facility] Comment on above: This liquid based Th inPrep(R) pap test was screened withthe use of an image guided system. Image-guided liquid-based Pa pOrdered By: Carmen Perdomo on 05-03-2024 Pap Smear Diagnosis Comment . [facility] Comment on above: NEGATIVE FOR INTRAEP ITHELIAL LESION OR MALIGNANCY.CELLULAR CHANGES ASSOCIATED WITH INFLAMMATION ARE PRESENT. Laboratory - CytologyOrdered By: Carmen Perdomo on 05-03-2024 Stage Set Designer Cyto stain Nom (Cvx/Vag) [ID] Comment . [facility] Comment on above: Soco Fields Cyto technologist Laboratory - Miscellaneous t estsOrdered By: Carmen Perdomo on 05-03-2024 Service comment (Unsp spec) [Interp] . . [facility] No Panel InformationOrdered By: Carmen Perdomo on 05-03-2024 Pap Smear Specimen Adequacy Comment . [facility] Comment on above: Satisfactory for rosalinda luation. Endocervical and/or squamous metaplasticcells (endocervical component) are present. 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 Normal [facility] Service comment (Unsp spec) [Interp]Ordered By: Carmen Perdomo on 05-03-2024 Pap Smear Comment (3) . . [facility] .Auto Diffon 08-05-2023 Basophil, Absolute 0.1 10 3/mcL Normal 0.0-0.2 [facility] ([place]) Comment on above: Performed By: #### B MP, DIMER, CBC, ADIFF, GFR, MDW, ANEU, TROPHS #### [address] [address] Basophils/100 WBC (Bld) 0.8 % Normal 0.0-2.5 [facility] ([place]) Comment on above: Performed By: #### B MP, DIMER, CBC, ADIFF, GFR, MDW, ANEU, TROPHS #### [address] [address] Eosinophil, Absolute 0.3 10 3/mcL Normal 0.0-0.4 [facility] ([place]) Comment on above: Performed By: #### B MP, DIMER, CBC, ADIFF, GFR, MDW, ANEU, TROPHS #### [address] [address] Eosinophils/100 WBC (Bld) 2.7 % Normal 0.0-7.0 [facility] ([place]) Comment on above: Performed By: #### B MP, DIMER, CBC, ADIFF, GFR, MDW, ANEU, TROPHS #### [address] [address] Lymphocyte, Absolute 2.9 10 3/mcL Normal 0.8-3.9 [facility] ([place]) Comment on above: Performed By: #### B MP, DIMER, CBC, ADIFF, GFR, MDW, ANEU, TROPHS #### [address] [address] Lymphocytes/100 WBC (Bld) 29.5 % Normal 10.0-50.0 [facility] ([place]) Comment on above: Performed By: #### B MP, DIMER, CBC, ADIFF, GFR, MDW, ANEU, TROPHS #### [address] [address] Monocyte, Absolute 0.5 10 3/mcL Normal 0.2-1.0 [facility] ([place]) Comment on above: Performed By: #### B MP, DIMER, CBC, ADIFF, GFR, MDW, ANEU, TROPHS #### [address] [address] Monocytes/100 WBC (Bld) 5.2 % Normal 1.7-13.0 [facility] ([place] Comment on above: Performed By: #### B MP, DIMER, CBC, ADIFF, GFR, MDW, ANEU, TROPHS #### [address] [address] Neutrophils/100 WBC (Bld) 61.8 % Normal 37.0-80.0 [facility] ([place] Comment on above: Performed By: #### B MP, DIMER, CBC, ADIFF, GFR, MDW, ANEU, TROPHS #### [address] [address] .GFRon 08-05-2023 GFR 100 ml/min/1.73sqm Normal [facility] ([place]) Comment on above: Result Comment: GFR Population [...] CBC, ADIFF, GFR, MDW, ANEU, TROPHS #### [address] [address] GFR Non- 82 ml/min/1.73sqm Normal [facility] ([place]) Comment on above: Result Comment: GFR Population [...] CBC, ADIFF, GFR, MDW, ANEU, TROPHS #### [address] [address] .MDWon 08-05-2023 Monocyte Distribution Width 19.22 Normal 0.00-20.00 [facility] ([place]) Comment on above: Result Comment: For ED adult patients suspected of sepsis, MDW<=20.0 does not rule out sepsis or risk of sepsis Performed By: #### B MP, DIMER, CBC, ADIFF, GFR, MDW, ANEU, TROPHS #### [address] [address] .NEUABSon 08-05-2023 Neutrophil, Absolute 6.2 10 3/mcL Normal 2.9-6.2 [facility] ([place]) Comment on above: Performed By: #### B MP, DIMER, CBC, ADIFF, GFR, MDW, ANEU, TROPHS #### [address] [address] BMPon 08-05-2023 BUN/Creatinine Ratio 18 ratio Normal 7-27 [facility] ([place]) Comment on above: Performed By: #### B MP, DIMER, CBC, ADIFF, GFR, MDW, ANEU, TROPHS #### [address] [address] Calcium [Mass/Vol] 9.2 mg/dL Normal 8.4-10.2 [facility] ([place]) Comment on above: Performed By: #### B MP, DIMER, CBC, ADIFF, GFR, MDW, ANEU, TROPHS #### [address] [address] Chloride [Moles/Vol] 104 mmol/L Normal 98-107 [facility] ([place]) Comment on above: Performed By: #### B MP, DIMER, CBC, ADIFF, GFR, MDW, ANEU, TROPHS #### [address] [address] CO2 [Moles/Vol] 27 mmol/L Normal 22-29 [facility] ([place]) Comment on above: Performed By: #### B MP, DIMER, CBC, ADIFF, GFR, MDW, ANEU, TROPHS #### [address] [address] Creatinine [Mass/Vol] 0.80 mg/dL Normal 0.55-1.02 [facility] ([place]) Comment on above: Performed By: #### B MP, DIMER, CBC, ADIFF, GFR, MDW, ANEU, TROPHS #### [address] [address] Electrolyte Balance 11.0 mEq/L Normal 4.0-15.0 [facility] ([place]) Comment on above: Performed By: #### B MP, DIMER, CBC, ADIFF, GFR, MDW, ANEU, TROPHS #### [address] [address] Glucose [Mass/Vol] 100 mg/dL Normal 70-105 [facility] ([place]) Comment on above: Performed By: #### B MP, DIMER, CBC, ADIFF, GFR, MDW, ANEU, TROPHS #### [address] [address] Potassium [Moles/Vol] 3.6 mmol/L Normal 3.5-5.1 [facility] ([place]) Comment on above: Performed By: #### B MP, DIMER, CBC, ADIFF, GFR, MDW, ANEU, TROPHS #### [address] [address] Sodium [Moles/Vol] 142 mmol/L Normal 136-145 [facility] ([place]) Comment on above: Performed By: #### B MP, DIMER, CBC, ADIFF, GFR, MDW, ANEU, TROPHS #### [address] [address] Urea nitrogen [Mass/Vol] 14 mg/dL Normal 7-18 [facility] ([place]) Comment on above: Performed By: #### B MP, DIMER, CBC, ADIFF, GFR, MDW, ANEU, TROPHS #### [place] [id number] CBCon 08-05-2023 Erythrocyte distribution width (RBC) [Ratio] 13.0 % Normal 11.5-14.5 [facility] ([place]) Comment on above: Performed By: #### B MP, DIMER, CBC, ADIFF, GFR, MDW, ANEU, TROPHS #### [address] [address] Hematocrit (Bld) [Volume fraction] 37.2 % Normal 37.0-47.0 [facility] ([place]) Comment on above: Performed By: #### B MP, DIMER, CBC, ADIFF, GFR, MDW, ANEU, TROPHS #### [address] [address] Hgb 12.5 G/dL Normal 12.0-16.0 [facility] ([place]) Comment on above: Performed By: #### B MP, DIMER, CBC, ADIFF, GFR, MDW, ANEU, TROPHS #### [address] [address] MCH (RBC) [Entitic mass] 29.6 pg Normal 27.0-31.2 [facility] ([place]) Comment on above: Performed By: #### B MP, DIMER, CBC, ADIFF, GFR, MDW, ANEU, TROPHS #### [address] [address] MCHC 33.5 G/dL Normal 33.0-37.0 [facility] ([place]) Comment on above: Performed By: #### B MP, DIMER, CBC, ADIFF, GFR, MDW, ANEU, TROPHS #### [address] [address] MCV (RBC) [Entitic vol] 88.4 fL Normal 80.0-94.0 [facility] ([place]) Comment on above: Performed By: #### B MP, DIMER, CBC, ADIFF, GFR, MDW, ANEU, TROPHS #### [place] [address] Platelet 365 10 3/mcL Normal 130-400 [facility] ([place]) Comment on above: Performed By: #### B MP, DIMER, CBC, ADIFF, GFR, MDW, ANEU, TROPHS #### [place] [address] Platelet mean volume (Bld) [Entitic vol] 7.6 fL Normal 7.4-10.4 [facility] ([place]) Comment on above: Performed By: #### B MP, DIMER, CBC, ADIFF, GFR, MDW, ANEU, TROPHS #### [place] [phone] RBC 4.21 10 6/mcL Normal 4.20-5.40 [facility] ([place]) Comment on above: Performed By: #### B MP, DIMER, CBC, ADIFF, GFR, MDW, ANEU, TROPHS #### [address] [address] WBC 10.0 10 3/mcL Normal 4.6-10.8 [facility] ([place]) Comment on above: Performed By: #### B MP, DIMER, CBC, ADIFF, GFR, MDW, ANEU, TROPHS #### [address] [address] [address] ANGIOGRAPHY CHEST W/CONTR Javier 08-05-2023 CT [...] 9:17:05 PM Ordering Provider: DARIUS KAUFMAN Normal [facility] DIMERon 08-05-2023 D-Dimer 619 ng/mL D-DU High 0-230 [facility] ([place]) Comment on above: Result Comment: Resu lts [...] ADIFF, GFR, MDW, ANEU, TROPHS #### [place] [phone] LABORATORYOrdered By: Mary Herrera on 08-05-2023 HCG [...] ng/L Male: 0-76 ng/L Testing performed on [employer] using a homogeneous sandwich chemiluminescent immunoassay based on [employer] technology. Urea nitrogen [Mass/Vol] 14 mg/dL Normal [...] HCG ( test) Ql (U) Negative Normal [facility] ([place]) Comment on above: Performed By: #### B MP, DIMER, CBC, ADIFF, GFR, MDW, ANEU, TROPHS #### [place] [address] test (u) int Not detected Invalid Interpretation Code [facility] ([place]) Comment on above: Performed By: #### B MP, DIMER, CBC, ADIFF, GFR, MDW, ANEU, TROPHS #### [address] [address] TROPHSon 08-05-2023 High Sensitivity Troponin I <4 Normal 0-51 [facility] hospital) Comment on above: Result Comment: High Sensitive Troponin I Reference Ranges: Female: 0-51 ng/L Male: 0-76 ng/L Testing performed on [employer] using a homogeneous sandwich chemiluminescent immunoassay based on [employer] technology. Performed By: #### B MP, DIMER, CBC, ADIFF, GFR, MDW, ANEU, TROPHS #### [address] [address] XR CHEST 1 VIEWon 08-05-2023 XR CHEST [...] 08/05/2023 5:14:52 PM Ordering Provider: DARIUS KAUFMAN [facility] ([place]) SUPERVISOR MIXING - Office Visiton 02-06 SUPERVISOR MIXING - Office Visit Patient Discussion/Summary The patient [...] to the COVID-19 Pandemic 6 wk PPV Bonsai Culturist Declined: MIKAELA yT History of Present IllnessPt. to follow up [...] Status: Hold For - Scheduling Requested for: [id number] Depression (311) (F32.A) Provider Impressions IMP: 31 yo MFG1P! referred by OB. PMH May 2021, in September 2021. together for one yr. Working on [employer]. Delivered baby boyChad, 01/05/22, unplanned via [...] 3-4 hours sleep for first 6 weeks. [place] like want to escape, no SI/HI. Had [...] 2021, together for one yr. Working on [employer] Employee Delivered baby boyChad, 01/05/22, from [...] helpful, parents one hour away. is fantastic. [place] like want to escape, no SI/HI. Had [...] not at allQ8: Not very oftenQ9: Only [id number]: Never SUPERVISOR MIXING - Visiton 02-04-2022 SUPERVISOR MIXING - Visit Chief Complaint PPV EPDS= 5 Declined Bonsai Culturist: LEONARDA Oquendo History of Present IllnessThe patient is being seen for follow up. The patient is status post vaginal delivery. Obstetrical complications include pre-eclampsia and After delivery. Delivery date was 01.05.22. The baby is a boy. The baby's name is Chad. weight was 7 lbs, 8 oz. [place] complications include respiratory distress. He was circumcised. [...] use status CPHS b) No MG-OBGYNNolberto ramírez 5570 DO Work Phone: SUPERVISOR MIXING - Office Visiton 11 SUPERVISOR MIXING - Office Visit Diagnoses/Problems Assessed state (V24.2) [...] B/P check c/o JEFFERS DOD 01/05/22 VD Bonsai Culturist declined Shanon COATES History of Present IllnessPatient [...] (U) MG-OBGYN-MA C 1200 [place] Work Phone: SUPERVISOR MIXING - Office Visiton 01-06 SUPERVISOR MIXING - Office Visit Diagnoses/Problems Assessed Dysuria (788.1) (R30.0) Gestational hypertension (642.30) (O13.9) Orders Cult, Urine; Status:In Progress - Specimen/Data Collected,Retrospective Authorization; Done: 15Jan2022 Urine Site : Clean Catch/Voided Provider Impressions Will get larger BP cuff and monitor at home. If 160/110 or higher, or headache, vision changes or RUQ pain will present to [facility] Follow up with me on Wednesday after a few days of monitoring with new cuff to see if dose adjustment needed Urine culutre send for dysuria. 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 valACYclovir HCl - 500 MG Oral Tablettake one tablet twice a day for remainder of for suppression Vitals Vital Signs Recorded: 15Jan2022 03:07PM Iqohsnmr439 Oucowhejl86 Height5 ft 2 in Physical Exam Constitutional: Alert and in no acute distress. Well developed, well nourished Head and Face: Head and face: normal Eyes: Normal external exam - nonicteric sclera, extraocular movements intact (EOMI) and no ptosis. Ears, Nose, Mouth, and Throat: (more content not included)... Normal [employer] URINE CULTURE,BACTERIALon URINE CULTURE,BACTERIAL PATIENT: SHU GASPAR LOCATION: [facility] BILL#: [id number] : 86 AGE: SEX: F ORDERED BY: SUKI YOU SOURCE: URINE COLLECTED: 01/15/22 00:00 ANTIBIOTICS AT MELISSA.: RECEIVED : 01/15/22 22:17 SITE: Clean Catch/Voided R E S U L T S URINE CULTURE,BACTERIAL FINAL 01/16/22 16:36 NO GROWTH Normal [facility] Comment on above: Performed By: #### [facility] ####[id number] [place] [address] Basophil percentageon 2021 Bilirubin [Mass/Vol] 0.30 mg/dL 0.20-1.00 [place] Work Phone: Comment on above: For patients on eltr ombopag therapy, use of Dimension [place] TBIL is not recommended. Chloride [Moles/Vol] 107 mmol/L 98-107 [place] Work Phone: Glucose [Mass/Vol] 83 mg/dL 74-106 [facility] Work Phone: Potassium [Moles/Vol] 3.8 mmol/L 3.5-5.1 [facility] Work Phone: Protein [Mass/Vol] 6.4 g/dL 6.4-8.2 [facility] Work Phone: Sodium [Moles/Vol] 143 mmol/L 136-145 [facility] Work Phone: [phone] WBC (Bld) [#/Vol] 10.5 10*3/uL 4.4-11.0 [facility] Work Phone: Blood erythrocytes count (nu mber/volume)on 01-11-2022 RBC (Bld) [#/Vol] 3.55 10*6/uL 4.2-5.4 [facility] Work Phone: Blood hemoglobin measurement (mass/volume)on 01-11-2022 Hemoglobin (Bld) [Mass/Vol] 10.3 g/dL 12.0-15.0 [facility] Work Phone: [phone] Blood platelet mean volumeon 01-11-2022 Platelet mean volume (Bld) [Entitic vol] 9.8 fL 6.2-12.0 [facility] Work Phone: Determination of erythrocyte mean corpuscular volume (MCV)on 01-11-2022 MCV (RBC) [Entitic vol] 90.7 fL 81-99 [facility] Work Phone: Hematocrit Auto (Bld) [Volum e fraction]on 01-11-2022 Hematocrit (Bld) [Volume fraction] 32.2 % 37-47 [facility] Work Phone: Laboratory - Chemistry and C hemistry - challengeon 01-11-2022 ALP [Catalytic activity/Vol] 141 U/L 45-117 [facility] Work Phone: ALT [Catalytic activity/Vol] 23 U/L 13-56 [facility] Work Phone: CO2 [Moles/Vol] 29.0 mmol/L 21.0-32.0 [facility] Work Phone: Globulin (S) [Mass/Vol] 4.1 g/dL 2.2-4.2 [facility] Work Phone: Urea nitrogen/Creatinine [Mass ratio] 14.8 mg/mg 10-20 [facility] Work Phone: Laboratory - Hematology and Cell countson 01-11-2022 Erythrocyte distribution width (RBC) [Entitic vol] 45.0 fL 35.1-43.9 [facility] Work Phone: Erythrocyte distribution width (RBC) [Ratio] 13.5 % 11.6-14.6 [facility] Work Phone: MCH (RBC) [Entitic mass] 29.0 pg 27.0-32.0 [facility] Work Phone: MCHC Auto (RBC) [Mass/Vol]on 01-11-2022 MCHC (RBC) [Mass/Vol] 32.0 g/dL 32-36 [facility] Work Phone: No Panel Informationon 01-11 Estimated Creatinine Clearance Calc 103.75 ml/min [facility] Work Phone: Estimated GFR (MDRD) Amer 145 mL/min >60 [facility] Work Phone: Comment on above: GFR Calc Estimated GFR (MDRD) Non-Af Amer 120 mL/min >60 [facility] Work Phone: Comment on above: Non- GFR Calc Platelets bldon 01-11-2022 Platelets (Bld) [#/Vol] 326 10*3/uL 150-450 [facility] Work Phone: Serum or plasma albumin laureano urement (mass/volume)on 01-11-2022 Albumin [Mass/Vol] 2.3 g/dL 3.2-5.0 [facility] Work Phone: Serum or plasma albumin/glob ulin mass ratioon 01-11-2022 Albumin/Globulin [Mass ratio] 0.6 {ratio} 0.9-2.4 [facility] Work Phone: Serum or plasma calcium laureano urement (mass/volume)on 01-11-2022 Calcium [Mass/Vol] 9.1 mg/dL 8.5-10.1 [facility] Work Phone: Serum or plasma creatinine m easurement (mass/volume)on 01-11-2022 Creatinine [Mass/Vol] 0.61 mg/dL 0.55-1.02 [facility] Work Phone: Comment on above: The validity of the calculated GFR & GFRAA in patients over 70 years has not been determined. Clinical correlation is essential. Serum or plasma urea nitroge n measurement (mass/volume)on 01-11-2022 Urea nitrogen [Mass/Vol] 9 mg/dL 7-18 [facility] Work Phone: Serum or plasma uric acid me asurement (mass/volume)on 01-11-2022 Urate [Mass/Vol] 4.5 mg/dL 2.6-6.0 [facility] Work Phone: Comment on above: The drugs N-Acetylcy steine and Metamizole may falsely depress this assay. Thin prep Papanicolaou smear with manual screeningon 01-11-2022 Thin prep Papanicolaou smear with manual screening 16 U/L 15-37 [facility] Work Phone: Thin prep Papanicolaou smear with manual screening 7 5-15 [facility] Work Phone: Order Reconciliationon 01-07 Order Reconciliation Page 1 Discharge Reconciliation Document Reconciliation Type: Discharge requested on behalf of Yasmin Lackey (Advanced Practice Nurse) done by Yasmin Lackey (INBOUND SALES CONSULTANT-COMMERCIAL HORTICULTURE INSTRUCTOR) Discharge - Reconciliation: 07-Jan-2022 09:51 by: Yasmin Lackey (INBOUND SALES CONSULTANT-COMMERCIAL HORTICULTURE INSTRUCTOR) Home Medications EnteredHOME MEDICATIONS AT DISCHARGE DateReconciliation [...] tablet Benzocaine 20% - Menthol 0.5% Topical Jasper (DERMOPLAST)DOSE = 1 application(s) Topical 4 Times [...] -Mumps -Rubel (more content not included)... Normal [facility] Clinical Event Note-BP Cuff and Home Monitoringon [...] agreed to order home BP monitor from [employer]. Large BP monitor delivered to room. Patient educated on how to use BP monitor, recording BPs on home monitoring log and s/sx to report to her provider. Pt verbalized understanding the above information. Electronic Signatures: Colleen Monterroso (GRACIA) (Signed 06-Jan-2022 11:06) Authored: Clinical Event Note Last Updated: 06-Jan-2022 11:06 by Colleen Monterroso (GRACIA) [facility] Daily Progress Note - OB-Pos t-partumon 01-06-2022 Daily Progress Note - UN-Pmja-xatuiu Current Stage: Stage: Post- Subjective Data: Post : Ambulate: Yes Flatus: Yes Tolerate Diet: Yes Lochia: Light Desired Contraception: Depo-Provera - Contraception options reviewed, including risks and benefits. Pain Comment: well controlled with PO medications. : Pt seen with baby and support person @ bedside in NAD. Alert, conversational. Denies JEFFERS, N/V, RUQ pain, vision changes. Objective Information: Objective Information: T PRBPMAPSpO2 [id number]/500321% Date/Time01/06 8: 8: 8: 8: 8: 8:52 [...] home Maternal Well-Being - emotional support provided [place] Feeding - /pumping encouraged; consult prn notable [...] (she/her) Doc Halo/Vocera Electronic Signatures: Yasmin Lackey (INBOUND SALES CONSULTANT-COMMERCIAL HORTICULTURE INSTRUCTOR) (Signed 06-Jan-2022 16:16) Authored: Current Stage, Subjective Data, Objective Data, Assessment and Plan, Note Completion Last Updated: 06-Jan-2022 16:16 by Yasmin Lackey (INBOUND SALES CONSULTANT-COMMERCIAL HORTICULTURE INSTRUCTOR) Normal [facility] Clinical Event Note-Labor Ch e[place]on 01-05-2022 Clinical [...] . ALLY Beckham Electronic Signatures: Tameka Gonsalves (INBOUND SALES CONSULTANT-[facility]) (Signed 05-Jan-2022 04:42) Authored: Clinical Event Note Last Updated: 05-Jan-2022 04:42 by Tameka Gonsalves (INBOUND SALES CONSULTANT-[facility]) Normal [facility] Clinical Event Note-Labor Check Clinical Event: Clinical [...] BP. ALLY Beckham Electronic Signatures: Tameka Gonsalves ([facility]) (Signed 05-Jan-2022 03:50) Authored: Clinical Event Note Last Updated: 05-Jan-2022 03:50 by Tameka Gonsalves ([facility]) Normal [facility] Clinical Event Note-Labor Check Clinical Event: Clinical [...] Last Updated: 05-Jan-2022 02:30 by Tameka Gonsalves ([facility]) Normal [facility] Clinical Event Note-Labor ch eckon 01-05-2022 Clinical [...] Anticipate ALLY Silva Electronic Signatures: Tameka Gonsalves ([facility]) (Signed 05-Jan-2022 00:26) Authored: Clinical Event Note Last Updated: 05-Jan-2022 00:26 by Tameka Gonsalves ([facility]) Normal [facility] Delivery Recordon 01-05-2022 Delivery Record Lab Tests/Results: [...] Spot (dd-mmm-yy): 04-Jan-2022 Total Protein/Creatinine Ratio: 0.17 [place] Delivery Information: A Delivery Information: Baby A Delivery: Rupture of Membranes date/[id number]-[id number]-7457 20:55 Amniotic Fluid Colorclear Delivery Typevaginal delivery Delivery Locationlabor and delivery Delivery Date/[id number]-[id number]-3925 06:51 Length of Time of ROM (rounded down to nearest hour)9 Sexmale Identification Band [id number] Electronic Transponder [id number] ID Bands Verified byAmelia FAGAN/ Eddie FAGAN [...] Harvey Neumann (RN) (Signed 05-Jan-2022 09:08) Authored: [place] Delivery Information Ariana Morgan (RN) (Signed 05-Jan-2022 07:05) Authored: Lab Tests/Results, Delivery Information Last Updated: 05-Jan-2022 09:08 by Harvey Neumann (RN) [facility] Discharge Planning Jiop7zy 1 Discharge Planning Note2 Discharge Planning: Planned Dispositionhome Anticipated Discharge [id number] Discharge Planning Date and Time: 01/05/22 @ [...] Alaina Mijares RN Assessment: Discharge Planning Assessment [id number] Lives Withsignificant other(1) Arrived [place] ([place]) Resource/Environmental Concernsnon(1) Anticipated Transition [place](1) Services Anticipated at Transitionnon(1) Discharge Documentation: Code StatusCode Status order at time of discharge: Full Code Electronic Signatures: Alaina Mijares (GRACIA) (Signed 05-Jan-2022 09:50) Authored: Discharge Planning, Assessment, Discharge Documentation Last Updated: 05-Jan-2022 09:50 by Alaina Mijares (GRACIA) References: 1. Data Referenced From Patient Profile - OB v3 04-Jan-2022 08:29 Normal [facility] Discharge [id number] 022 Discharge Profile2 Discharge Orders: Anticipated Discharge Date: Anticipated Discharge [id number] DNAR: Code Status at Discharge: Full Code [...] 110 or higher, call your doctor or stock speculator immediately. Blood Pressure Systolic (upper number) 150 - 159 OR Diastolic (bottom number) 100 - 109, repeat in one hour. If repeat Blood Pressure Systolic 150 - 159 OR Diastolic 100 - 109, call your doctor or stock speculator to discuss blood pressure management.. Follow-Up - OB Provider: Physician/Dept/Miros[place] Provider CommentsPlease call for BP check within 2-5 days and a 4-6wk visit Provider FINAL REVIEW of Orders: Final Review: Final Review of Medication Reconciliation and Orders Completedby TERRY Santana at 07-Jan-2022 09:50:54 Appointments: Follow-Up Appointment 01: Physician/Omar/Miroslava Provider Reason for ReferralBlood Pressure Check Scheduled Date/[id number]-Ica-6769 14:30 Follow-Up Appointment 02: Physician/Stiven Reason for ReferralPPV Call to Schedule in4-6 Weeks CommentsPlease call to schedule Other Clinician Instructions: Other Instructions: Nursing InstructionsThe [place] Academy of Pediatrics recommends that pacifier use [...] from Alex: (more content not included)... Normal [facility] No Panel Informationon 01-05 [facility] Work Phone: ORDER RECD MG-OBGYN-Ri sman [address] [facility] Work Phone: Order Reconciliationon 01-05 Order Reconciliation Page 1 Transfer Reconciliation Document Reconciliation Type: Transfer requested on behalf of Tameka Gonsalves (Advanced Practice Nurse) done by Tameka Gonsalves (INBOUND SALES CONSULTANT-CN) Transfer - Reconciliation: 05-Jan-2022 07:37 by: Tameka Gonsalves (INBOUND SALES CONSULTANT-CN) Pre-Transfer OrdersDateReconciliation Comment/ Additional InformationPost Transfer OrdersDateStop [...] Notes: Contraind (more content not included)... Normal [facility] REQUEST-LEUKOREDUCED RED HORACE LSon 01-05-2022 REQUEST-LEUKOREDUCED RED CELLS ORDER RECD Normal [facility] Comment on above: Performed By: #### O AIRPORT SALES AGENT ####[id number] Surgical Pathology Depar tmenton 01-05-2022 [facility] Surgical Pathology Department Name SHU GASPAR Pathologist: [...] reviewed this case. Diagnostic interpretation performed at [facility] [address] [facility] [address] Clinical History: Gestational age: 39.3 Ob index: [...] measuring 7.0 x 6.0 x 1.8 cm. Swimming Coach sections are submitted in 5 cassettes. [facility] Summary of Cassettes: Specimen Label Site A 1 umbilical cord sections 2 membrane rolls 3 placental parenchyma, umbilical cord insertion site 4 placental parenchyma with attached blood clot 5 placental parenchyma djo/01/06/2022 [facility] Department of Pathology [id number] [place] [address] Normal [facility] Comment on above: Performed By: #### T +S #### [address] [place] [address] Admission Risk Screen - OBon 01-04-2022 Admission [...] Learning Preferencesverbal instruction Cultural Considerationsnone Developmental Considerationsnone Sikhism Considerationsnone Learning Assessment (Other Learner): Other learner [...] Spiritual Screen: Are there any cultural, spiritual, pentecostal practices/values/needs that are important for us to knowno Depression Screen: During the past month, have you often been bothered by feeling down, depressed or hopelessno During the past month, have you often had little interest or pleasure in doing thingsno Have you had any thoughts of harming anyone elseno [place] Suicide: Risk Screen Not Applicable/Able to Answerable to be screened In the Past Month: Have you wished you were or could go to sleep and not wake upno In the Past Month: Have you had any actual thoughts of killing yourselfno Lifetime: Have you ever done, started to do, or prepared to do anything to end your lifeno [place] Suicide Risknegative Family Violence Screen: Are you [...] with underlying chronic conditions or reside in detention care facilitiesnone of these conditions Persons with Functional or Anatomic Asplenianone of these conditions Immunocompromised Personsnone of these conditions Pneumonia vaccine NOT indicated due to:patient DOES NOT have a condition that indicates vaccination Vaccination - TDap Vaccination Screen: Have you received a TDap vaccine this pregnancyyes (no further action required) (more content not included)... Normal [facility] CBCon 01-04-2022 Erythrocyte distribution width (RBC) [Ratio] 13.8 % Normal 11.5 - 14.5 [facility] Comment on above: Performed By: #### O AIRPORT SALES AGENT #### [facility] [address] [place] [address] Hematocrit (Bld) [Volume fraction] 34.1 % Low 36.0 - 46.0 [facility] Comment on above: Performed By: #### O AIRPORT SALES AGENT #### [facility] [address] [place] [address] Hemoglobin (Bld) [Mass/Vol] 11.1 g/dL Low 12.0 - 16.0 [facility] Comment on above: Performed By: #### O AIRPORT SALES AGENT #### [facility] [address] [place] [address] MCHC (RBC) [Mass/Vol] 32.6 g/dL Normal 32.0 - 36.0 [facility] Comment on above: Performed By: #### O AIRPORT SALES AGENT #### [facility] [address] [place] [address] MCV (RBC) [Entitic vol] 91 fL Normal 80 - 100 [facility] Comment on above: Performed By: #### O AIRPORT SALES AGENT #### [facility] [address] [place] [address] NUCLEATED RBC 0.0 /100 WBC Normal 0.0-0.0 [facility] Comment on above: Performed By: #### O AIRPORT SALES AGENT #### [place] [id number] [place] [address] Platelets (Bld) [#/Vol] 224 10*3/uL Normal 150 - 450 [facility] Comment on above: Performed By: #### O AIRPORT SALES AGENT #### [facility] [address] [place] [address] RBC 3.76 x10E12/L Low 4.00 - 5.20 [facility] Comment on above: Performed By: #### O AIRPORT SALES AGENT #### [facility] [address] [place] [address] WBC (Bld) [#/Vol] 10.5 10*3/uL Normal 4.4 - 11.3 [facility] Comment on above: Performed By: #### O AIRPORT SALES AGENT #### [facility] [address] [place] [address] COMPREHENSIVE PANELon 2021 Albumin [Mass/Vol] 3.2 g/dL Low 3.4 - 5.0 [facility] Comment on above: Performed By: #### O AIRPORT SALES AGENT #### [facility] [address] [place] [address] ALP [Catalytic activity/Vol] 192 U/L High 33 - 110 MG-OBGYN-Ri sman [facility] Work Phone: Comment on above: Performed By: #### O AIRPORT SALES AGENT #### [facility] [address] [place] [address] ALT [Catalytic activity/Vol] 10 U/L Normal 7 - 45 [facility] Comment on above: Result Comment: Kim ents treated with Sulfasalazine may generate falsely decreased results for ALT. Performed By: #### O AIRPORT SALES AGENT #### [facility] [address] [place] [address] Anion gap [Moles/Vol] 13 mmol/L Normal 10 - 20 MG- OBGYN-Ri sman [address] [facility] Work Phone: Comment on above: Performed By: #### O AIRPORT SALES AGENT #### [facility] [address] [place] AST [Catalytic activity/Vol] 14 U/L Normal 9 - 39 [facility] Comment on above: Performed By: #### O AIRPORT SALES AGENT #### [facility] [address] [place] [address] Bilirubin [Mass/Vol] 0.3 mg/dL Normal 0.0 - 1.2 MG-O BGYN-Ri sman [address] [facility] Work Phone: Comment on above: Performed By: #### O AIRPORT SALES AGENT #### [facility] [address] [place] [address] Calcium [Mass/Vol] 8.6 mg/dL Normal 8.6 - 10.6 MG-OBG YN-Ri sman [address] [facility] Work Phone: Comment on above: Performed By: #### O AIRPORT SALES AGENT #### [facility] [address] [place] [address] Chloride [Moles/Vol] 108 mmol/L High 98 - 107 MG-O BGYN-Ri sman [address] [facility] Work Phone: Comment on above: Performed By: #### O AIRPORT SALES AGENT #### [facility] [address] [place] [address] Creatinine [Mass/Vol] 0.47 mg/dL Low 0.50 - 1.05 MG -OBGYN-Ri sman [address] [facility] Work Phone: Comment on above: Reference Range: 0.5 0 - 1.05 Performed By: #### O AIRPORT SALES AGENT #### [facility] [address] [place] [address] eGFR FEMALE >90 Normal >90 [facility] Comment on above: Result Comment: CALC ULATIONS OF ESTIMATED GFR ARE PERFORMED USING THE 2020 CKD-EPI STUDY REFIT EQUATION WITHOUT THE RACE VARIABLE FOR THE IDMS-TRACEABLE CREATININE METHODS. https://jasn.asnjournals.org/content/early/ASN.27196 72422 Performed By: #### O AIRPORT SALES AGENT #### [facility] [address] [place] [address] Glucose [Mass/Vol] 94 mg/dL Normal 74 - 99 MG-OBG YN-Ri sman [address] [facility] Work Phone: Comment on above: Performed By: #### O AIRPORT SALES AGENT #### [facility] [address] [place] [address] HCO3 (Bld) [Moles/Vol] 21 mmol/L Normal 21 - 32 [facility] Comment on above: Performed By: #### O AIRPORT SALES AGENT #### [facility] [address] [place] [address] Potassium [Moles/Vol] 4.0 mmol/L Normal 3.5 - 5.3 MG- OBGYN-Ri sman [address] [place] [address] Work Phone: Comment on above: Performed By: #### O AIRPORT SALES AGENT #### [facility] [address] [place] [address] Protein [Mass/Vol] 5.4 g/dL Low 6.4 - 8.2 MG-OBG YN-Ri sman [address] [facility] Work Phone: Comment on above: Performed By: #### O AIRPORT SALES AGENT #### [facility] [address] [place] [address] Sodium [Moles/Vol] 138 mmol/L Normal 136 - 145 MG-OBG YN-Ri sman [address] [facility] Work Phone: Comment on above: Performed By: #### O AIRPORT SALES AGENT #### [facility] [address] [place] [address] Urea nitrogen [Mass/Vol] 10 mg/dL Normal 6 - 23 MG-OBGYN-Ri sman [address] [facility] Work Phone: Comment on above: Performed By: #### O AIRPORT SALES AGENT #### [facility] [address] [place] [address] Daily Progress Note - OB-Int rapartumon 01-04-2022 Daily Progress Note - OB-Intrapartum Current Stage: Stage: Intrapartum Subjective Data: Intrapartum: Intrapartum Progress Notes Pt resting comfortably with epidural, consents to cervical exam. Objective Information: Objective Information: T PRBPMAPSpO2 [id number]% Date/Time01/04 20: 21: 20: 21: 21: 21:35 Range(36.5C - 36.8C ) (74 - 103 ) (16 - 18 ) (126 - 166 )/ (65 - 93 ) (94 - 116 ) (90% - 100% ) Pain reported at 01/04 20:30: 0 = None ---- Intake and Output ----- Mn/Dy/[facility]Out[facility] 04, 20[facility] 2:00 pm000 Physical Exam: [...] diagnosis. ALLY Beckham Electronic Signatures: Tameka Gonsalves (INBOUND SALES CONSULTANTHOUSE OF THE GOOD SAMARITAN) (Signed 04-Jan-2022 21:46) Authored: Current Stage, Subjective Data, Objective Data, Assessment and Plan, Note Completion Last Updated: 04-Jan-2022 21:46 by Tameka Gonsalves (INBOUND SALES CONSULTANTHOUSE OF THE GOOD SAMARITAN) Normal [facility] LDHon 01-04-2022 LDH 145 U/L Normal 84 - 246 [facility] Comment on above: Performed By: #### L #### [facility] [address] [place] [address] Laboratory - Blood bankon ABO group Nom (Bld) A [facility] Work Phone: Blood group antibody screen Ql Negative MG-OBGYN-Ri [facility] [address] [facility] Work Phone: Rh immune globulin screen (Bld) [Interp] Positive [facility] Work Phone: Laboratory - Chemistry and C hemistry - challengeon 01-04-2022 Albumin BCP dye [Mass/Vol] 3.2 g/dL below low threshold 3.4 - 5.0 MG-OBGYN-Ri sman [address] [facility] Work Phone: ALT With P-5'-P [Catalytic activity/Vol] 10 U/L 7 - 45 MG-OBGYN-Ri sman [address] [facility] Work Phone: Comment on above: Patients treated wit h Sulfasalazine may generate falsely decreased results for ALT. AST With P-5'-P [Catalytic activity/Vol] 14 U/L 9 - 39 MG-OBGYN-Ri sman [address] [facility] Work Phone: CO2 [Moles/Vol] 21 mmol/L 21 - 32 MG-OBGYN- Ri sman [facility] Work Phone: LDH [Catalytic activity/Vol] 145 U/L 84 - 246 MG-OBGYN-Ri sman [address] [facility] Work Phone: Laboratory - Hematology and Cell countson 01-04-2022 Erythrocyte distribution width (RBC) [Ratio] 13.8 % See Below MG-OBGYN-Ri sman [address] [facility] Work Phone: Comment on above: Reference Range: 11. 5 - 14.5 Hematocrit (Bld) [Volume fraction] 34.1 % below low threshold See Below MG-OBGYN-Ri sman [address] [facility] Work Phone: Comment on above: Reference Range: 36. 0 - 46.0 Hemoglobin (Bld) [Mass/Vol] 11.1 g/dL below low threshold See Below MG-OBGYN-Ri sman [address] [facility] Work Phone: Comment on above: Reference Range: 12. 0 - 16.0 MCHC (RBC) [Mass/Vol] 32.6 g/dL See Below MG- OBGYN-Ri sman [address] [facility] Work Phone: Comment on above: Reference Range: 32. 0 - 36.0 MCV (RBC) [Entitic vol] 91 fL 80 - 100 MG-OBGYN-Ri sman [address] [facility] Work Phone: Platelets (Bld) [#/Vol] 224 10*3/uL 150 - 450 MG-OBGYN-Ri sman [address] [facility] Work Phone: RBC (Bld) [#/Vol] 3.76 {x10E12/L} below low threshold See Below MG-OBGYN-Ri sman [address] [facility] Work Phone: Comment on above: Reference Range: 4.0 0 - 5.20 WBC (Bld) [#/Vol] 10.5 10*3/uL 4.4 - 11.3 MG-KILN CHARGER-Ri sman [address] [facility] Work Phone: No Panel Informationon 01-04 >90 >90 MG-OBGYN-Ri sman [facility] Work Phone: Comment on above: CALCULATIONS OF ASIYA MATED GFR ARE PERFORMED USING THE 2020 CKD-EPI STUDY REFIT EQUATION WITHOUT THE RACE VARIABLE FOR THE IDMS-TRACEABLE CREATININE METHODS.https://jasn.asnjournals.org/content//A SN.0680693376 ORDER RECD MG-OBGYN-Ri sman [facility] Work Phone: 0.0 {/100_WBC} 0.0-0.0 [facility] Work Phone: Order Reconciliationon 01-04 Order Reconciliation Page 1 Admission Reconciliation Document Reconciliation Type: Admission requested on behalf of Grace Valdez (Advanced Practice Nurse) done by Grace Valdez (INBOUND SALES CONSULTANT-CNM) Admission - Reconciliation: 04-Jan-2022 08:43 by: Grace Valdez (INBOUND SALES CONSULTANT-CNM) Home MedicationsEnteredLast Dose TakenReconciled with current Order Reconciliation Comment/ Additional Information Aspir 81 oral delayed release tablet 1 tab(s) orally once a [id number] Reviewed and Held Lexapro 10 mg oral tablet 1 tab(s) orally once a [id number] Escitalopram Tablet (LEXAPRO)DOSE = 10 mg Oral DailyLexapro 10 mg oral tablet continued as the inpatient order Escitalopram Prena1 oral capsule 1 cap(s) orally once a [id number] Reviewed and Held Vitamin C 04-Jan-2022 Reviewed and Held Vitamin D3 1250 mcg (50,000 intl units) oral capsule cap(s) orally once a week 04-Jan-2022 Reviewed and Held Normal [facility] Patient Profile - OB v3on Patient Profile - OB v3 Profile: Initial Info: How to be AddressedSamantha or Thierry Spoken Language PreferredEnglish Source of Informationpatient Reason for admission this visitexpected delivery Wants Family/Rep Notified of Admissionn/a; family present Notify PCPdo not notify PCP Informed of Patient Visiting Rightsyes Arrived [place] Patient Belongingsremains with patient Patient Belongings Remaining with Patientclothing Home Meds have been Reviewed and Verified with Patient/Familyyes Medications Brought to Hospitalno Info: Gravida1 (1) Term Deliveries0 (1) Deliveries0 (1) Abortions0 (1) Living Children0 (1) Patient stated [id number] Calculation of EGA based on patient stated EDD39.2 Records availableyes Trimester Care Initiatedfirst Care ProviderPetr Morrell Current Riskspolyhydramnios Previous live (any gestational age)no Planno Baby's Post Discharge Care Provider (Provider Name, Address and Phone Number) [facility] Feedingbreastmilk Benefits of Breast Milk DiscussionThe benefits of exclusive breast milk feeding and the risk of adding formula have been discussed with patient / mother. Discussion Date / [id number] 08:30 Previous Experienceyes General Health: Current Weight in kg122 kilogram(s) Current Weight in moa655.9 pound(s) Weight Methodactual (measured) Scale Typestanding Pre [...] Note - OB v4 23-Dec-2021 17:47 Normal [facility] REQUEST-LEUKOREDUCED RED HORACE LSon 01-04-2022 REQUEST-LEUKOREDUCED RED CELLS ORDER RECD Normal [facility] Comment on above: Performed By: #### O AIRPORT SALES AGENT #### [facility] [address] [place] [address] SYPHILIS SCREENING WITH REFL EXon 01-04-2022 SYPHILIS TOTAL AB Non-Reactive Normal NONREACTIVE [facility] Comment on above: Result Comment: No s ignificant level of Treponema pallidum antibody detected. Repeat testing in 2 to 4 weeks may be considered if early infection or incubating syphilis infection is suspected. Performed By: #### S YPHR ####[id number] [place] [address] Lab Specimen Source Normal [facility] Comment on above: Performed By: #### S YPHR ####[id number] [place] [address] T. pallidum IgG+IgM IA Ql (S) Non-Reactive See Below MG-OBGYN-Ri sman [facility] Work Phone: Comment on above: SOURCE: Reference Ra nge: NONREACTIVENo significant level of Treponema pallidum antibody detected. Repeat testing in 2 to 4 weeks may be considered if early infection or incubating syphilis infection is suspected. TOTAL PROTEIN, URINE SPOTon 01-04-2022 CREATININE,URINE 226.0 mg/dL Normal 20.0 - 320.0 [facility] Comment on above: Performed By: #### T PS2 #### [facility] [address] [place] [address] T. PROTEIN/CREAT RATIO 0.17 mg/mg Creat Normal 0.00 - 0.17 [facility] Comment on above: Performed By: #### T PS2 #### [facility] [address] [place] [address] TOTAL PROT,URINE SPOT 38 mg/dL High 5 - 24 [facility] Comment on above: Performed By: #### T PS2 #### [facility] [address] [place] [address] TYPE + SCREENon 01-04-2022 ABO TYPE A Normal [facility] Comment on above: Performed By: #### T +S #### [facility] [address] [place] [address] RH TYPE Positive Normal [facility] Comment on above: Performed By: #### T +S #### [facility] [address] [place] [address] Total Protein, Urine Spoton 01-04-2022 Creatinine (U) [Mass/Vol] 226.0 mg/dL See Below MG-OBGYN-Ri sman [address] [facility] Work Phone: Comment on above: Reference Range: 20. 0 - 320.0 Protein (U) [Mass/Vol] 38 mg/dL above hig h threshold 5 - 24 MG-OBGYN-Ri [facility] [address] [facility] Work Phone: Protein/Creatinine (U) [Ratio] 0.17 {mg/mg_Creat} See Below MG-OBGYN-Ri [facility] [address] [facility] Work Phone: Comment on above: Reference Range: 0.0 0 - 0.17 Uric Acid, Serumon Urate [Mass/Vol] 3.6 mg/dL Normal 2.3 - 6.7 MG-OBGYN -Ri [address] Work Phone: Comment on above: Venipuncture [...] dosing. Performed By: #### T +S #### [facility] [address] [place] [address] Coronavirus 2019 RNA by PCR, Symptomaticon 01-02-2022 Coronavirus 2019 RNA by PCR, Symptomatic Not detected Normal See Below MG-OBGYN-Ri [address] Work Phone: Comment on above: SOURCE: Nasal, Nasop haryngealReference Range: Not Detected.This test has received FDA Emergency Use Authorization (EUA) and has been verified by [facility]. This test is only authorized for the duration of time that circumstances exist to justify the authorization of the emergency use of in vitro diagnostic tests for the detection of SARS-CoV-2 virus and/or diagnosis of COVID-19 infection under section 564(b)(1) of the Act, 21 U.S.C. 360bbb-3(b)(1), unless the authorization is terminated or revoked sooner. [facility] is certified under CLIA-88 as qualified to perform high complexity testing. Testing is performed in the [facility] laboratory located at [address] [place] [address].SARS-CoV-2/Flu/RSV Multiplex Test: Fact sheet for providers: https://www.fda.gov/media/853896/downloadFact sheet for patients: https://www.fda.gov/media/590081/download Covid 19 Resultson 2 SARS-CoV-2 (COVID-19) RNA [...] You may also be contacted by the [facility] to see if any [...] or Naproxen (Aleve) can also be used. Nodh-tuc-rmipdxw cough and cold medicines can be used according to the instructions on the package. Some pfui-cwj-ikmvhxt medicines also contain acetaminophen. Make sure you [...] water are not available, use alcohol-based hand surveillance systems engineer. Avoid touching your eyes, nose, and mouth [...] 24 nae (more content not included)... Normal [facility] Daily Progress Note - OB-Tri ageon 12-23-2021 [...] NKDA Objective Information: Objective Information: T PRBPMAPSpO2 [id number]/7895 Date/Time12/23 17: 17: 17:50 Range (108 - 108 ) (121 - 121 )/ (78 - 78 ) (95 - 95 ) Physical Exam: Constitutional: alert, oriented Obstetric: gravid FHTs 135 baseline, moderate variability, +accels after SVE, -decels UC every 2-3 min SVE: fingertip/60/-3 Respiratory/Thorax: normal respiratory effort Extremities: no edema Psychological: appropriate affect Testing: NST Interpretation - Baby A: Baseline [id number] Variabilitymoderate (amplitude range 6 to 25 bpm) [...] Amelia Zamora CNM Electronic Signatures: Amelia Zamora (INBOUND SALES CONSULTANT-CNSocorro) (Signed 23-Dec-2021 18:52) Authored: Current Stage, Subjective Data, Objective Data, Testing, Assessment and Plan, Note Completion Last Updated: 23-Dec-2021 18:52 by Amelia Zamora (INBOUND SALES CONSULTANT-CNM) Normal [facility] Discharge [id number] 12-23- 022 Discharge Profile2 Discharge Orders: Anticipated Discharge Date: Anticipated Discharge [id number] Anticipated Discharge Time18:48 DNAR: Code Status at [...] FINAL REVIEW of Orders, Gold Form - Cobbler Upper Summary Last Updated: 23-Dec-2021 18:48 by Amelia Zamora (INBOUND SALES CONSULTANT-CN) Normal [facility] Order Reconciliationon 12-23 Order Reconciliation Page 1 Discharge Reconciliation Document Reconciliation Type: Discharge requested on behalf of Amelia Zamora (Advanced Practice Nurse) done by Amelia Zamora (INBOUND SALES CONSULTANT-CN) Discharge - Reconciliation: 23-Dec-2021 18:47 by: Amelia Zamora (INBOUND SALES CONSULTANT-CN) Home Medications EnteredHOME MEDICATIONS AT DISCHARGE DateReconciliation [...] capsule cap(s) orally once a week Normal [facility] Risk Screen - OB Triageon Risk Screen [...] Learning Preferencesverbal instruction Cultural Considerationsnone Developmental Considerationsnone Sikhism Considerationsnone Learning Assessment (Other Learner): Other learner availableno Depression/Suicide: Depression Screen: During the past month, have you often been bothered by feeling down, depressed or hopelessno During the past month, have you often had little interest or pleasure in doing thingsno Have you had any thoughts of harming anyone elseno [place] Suicide: Risk Screen Not Applicable/Able to Answerable to be screened In the Past Month: Have you wished you were or could go to sleep and not wake upno In the Past Month: Have you had any actual thoughts of killing yourselfno Lifetime: Have you ever done, started to do, or prepared to do anything to end your lifeno [place] Suicide Risknegative Family Violence: Abuse Screen: Are [...] Last Updated: 23-Dec-2021 17:47 by Shu Huff) [facility] Triage Note - OB v4on 2021 Triage Note - OB v4 Triage: General Info: Time of Arrival on [id number] 17:33 Patient arrived viaambulatory Arrived From[place] Acuity Level3 Chief Complaintdecreased movement Weight in kg119 kilogram(s) Weight in jch580.3 pound(s) Weight Methodactual (measured) Scale Typestanding Height [...] 23-Dec-2021 18:52 by Shu Huff (GRACIA) Normal [facility] No Panel Informationon 12-22 Normal MG-OBGYN-Ri sman [facility] Work Phone: OB Biophysical profile [...] Electronically signed by: KRYSTAL CABRAL MD Normal [facility] No Panel Informationon 12-15 Normal MG-OBGYN-Ri sman [facility] Work Phone: OB Follow up [...] EFW (oz) 8 oz EFW by: [place]lock (SPA-IV-EK-FL) Extended [place] Engineer 5.6 mm Head / Face / Neck [...] Electronically signed by: KRYSTAL CABRAL MD Normal [facility] Daily Progress Note - OB-Tri ageon 12-12-2021 Daily Progress Note - OB-Triage Current Stage: Stage: Triage OB Dating: EDC/EGA: Final [id number] EGA36 Subjective Data: Antepartum: Vaginal Bleeding: No [...] 48.8 Objective Information: Objective Information: T PRBPMAPSpO2 [id number]% Date/Time12/12 19: 17: 17: 17: 19:41 Range (88 - 113 ) (18 - 18 ) (124 - 124 )/ (83 - 83 ) (96 - 96 ) (91% - 99% ) Pain reported at 12/12 17:26: 0 = None Physical Exam: Constitutional: Alert, conversational, well-appearing Obstetric: FHT: 130, mod variability, +accels, -decels [place]: quiet Eyes: Sclera white, EOM intact, no [...] Testing: NST Interpretation - Baby A: Baseline [id number] Variabilitymoderate (amplitude range 6 to 25 bpm) [...] agrees with d/c home. Padmini Newell, MSN, INBOUND SALES CONSULTANT, INSIDE SALES ACCOUNT MANAGER-C Electronic Signatures: Padmini Newell (INBOUND SALES CONSULTANT-[employer]CIAL [employer] INSTRUCTOR) (Signed 12-Dec-2021 21:28) Authored: Current Stage, OB Dating, Subjective Data, Objective Data, Testing, Assessment and Plan, Note Completion Ghanshyam Falcon) (Signed 12-Dec-2021 22:16) Co-Signer: Current Stage, OB Dating, Subjective Data, Objective Data, Testing, Assessment and Plan, Note Completion Last Updated: 12-Dec-2021 22:16 by Ghanshyam Falcon) Normal [facility] Discharge [id number] Discharge Profile2 Discharge Orders: DNAR: Code [...] at 12-Dec-2021 21:19:15 Electronic Signatures: Padmini Newell (MAGALY-COMMERCIAL HORTICULTURE INSTRUCTOR) (Signed 12-Dec-2021 21:19) Authored: Discharge Orders, Triage OB, Provider FINAL REVIEW of Orders, Gold Form - Cobbler Upper Summary Last Updated: 12-Dec-2021 21:19 by Padmini Newell (INBOUND SALES CONSULTANT-COMMERCIAL HORTICULTURE INSTRUCTOR) Normal [facility] GROUP B STREP SCREENon 12-12 GROUP B STREP SCREEN PATIENT: SA CHRISTEL ROY LOCATION: [facility] BILL#: [id number] : 86 AGE: SEX: F ORDERED BY: TOM BULL SOURCE: VAG-RECTAL COLLECTED: 12/12/21 00:00 ANTIBIOTICS AT MELISSA.: RECEIVED : 12/12/21 22:14 SITE: R E S U L T S GROUP B STREP SCREEN FINAL 12/15/21 12:37 NEGATIVE FOR GROUP B BETA STREP. Normal [facility] Comment on above: Performed By: #### O AIRPORT SALES AGENT #### [facility] [address] [place] [address] Laboratory - Microbiology an d Antimicrobial susceptibilityon 12-12-2021 Bacteria identified Aer cx Nom (Genital specimen) [facility] [address] [place] Work Phone: Order Reconciliationon 12-12 Order Reconciliation Page 1 Discharge Reconciliation Document Reconciliation Type: Discharge requested on behalf of Padmini Newell (Advanced Practice Nurse) done by Padmini Newell (INBOUND SALES CONSULTANT-[facility]) Discharge - Reconciliation: 12-Dec-2021 21:19 by: Padmini Newell (INBOUND SALES CONSULTANT-COMMERCIAL HORTICULTURE INSTRUCTOR) Home Medications EnteredHOME MEDICATIONS AT DISCHARGE DateReconciliation [...] capsule cap(s) orally once a week Normal [facility] Risk Screen - OB Triageon Risk Screen [...] Learning Preferencesverbal instruction Cultural Considerationsnone Developmental Considerationsnone Sikhism Considerationsnone Learning Assessment (Other Learner): Other learner availableno Depression/Suicide: Depression Screen: During the past month, have you often been bothered by feeling down, depressed or hopelessno During the past month, have you often had little interest or pleasure in doing thingsno Have you had any thoughts of harming anyone elseno [place] Suicide: Risk Screen Not Applicable/Able to Answerable to be screened In the Past Month: Have you wished you were or could go to sleep and not wake upno In the Past Month: Have you had any actual thoughts of killing yourselfno Lifetime: Have you ever done, started to do, or prepared to do anything to end your lifeno [place] Suicide Risknegative Family Violence: Abuse Screen: Are [...] 12-Dec-2021 17:[address] (GRACIA) Normal [facility] Triage Note - OB v4on 2021 Triage Note - OB v4 Triage: General Info: Time of Arrival on [id number] 17:06 Arrived Fromphysician office Acuity Level4 Chief ComplaintNRNST Weight in kg121 kilogram(s) Weight in tce994.7 pound(s) Weight Methodactual (measured) Scale Typestanding Height in feet5 feet Height in inches1.97 inch(es) Height in cm157.4 centimeter(s) Height Methodstated BMI (kg/m2)48.84 square meter Home Meds have been Reviewed and Verified with Patient/Familyyes Info: Gravida1 Term Deliveries0 Deliveries0 Abortions0 Living Children0 Patient stated [id number] Calculation of EGA based on patient stated EDD36 Records availableyes Trimester Care Initiatedfirst Care ProviderCNM Current Risksnone Substance: Smoking Statusnever smoker Alcohol Usedenies Drug Usedenies Disposition/Disch: Dispositiondischarged from facility, home with own care Discharge/Transfer Summary Noteurgent maternal warning signs, daily movements Patient Meets Criteria for Home Blood Pressure Monitorno Admission/Observation/Dis charge/Transfer Date/[id number] 21:28 Discharged Accompanied Byspouse Discharge Modeambulatory Transportation [...] 12-Dec-2021 21:28 by Zayda Landa (RN) Normal [facility] No Panel Informationon 11-13 Never [facility] [...] at allQ8: No, not all allQ9: No, njxdoL88: Never No Panel Informationon 11-06 Normal [facility] [place] 2420 DO Work Phone: Please click on the link to view the study images Normal [facility] on Work Phone: OB Biophysical profile [...] EFW (oz) 14 oz EFW by: Hadlock (GLF-UW-XE-FL) Extended County Engineer 5.8 mm Head / Face / Neck [...] Electronically signed by: JANINE BOWMAN MD Normal [facility] OB Follow up or repeat scano n [...] EFW (oz) 14 oz EFW by: Hadlock (QYC-TH-[id number]-FL) Extended County Engineer 5.8 mm Head / Face / Neck [...] Electronically signed by: JANINE BOWMAN MD Normal [facility] Coronavirus 2019 RNA by PCR, Symptomaticon 10-27-2021 Coronavirus 2019 RNA by PCR, Symptomatic Detected Abnormal See Below Raúl ramírez 3229 DO Work Phone: Comment on above: SOURCE: Nasal, Nasop haryngealReference Range: Not Detected.This test has received FDA Emergency Use Authorization (EUA) and has been verified by [facility]. This test is only authorized for the duration of time that circumstances exist to justify the authorization of the emergency use of in vitro diagnostic tests for the detection of SARS-CoV-2 virus and/or diagnosis of COVID-19 infection under section 564(b)(1) of the Act, 21 U.S.C. 360bbb-3(b)(1), unless the authorization is terminated or revoked sooner. [facility] is certified under CLIA-88 as qualified to perform high complexity testing. Testing is performed in the [facility] laboratory located at [address] [place] [address].SARS-CoV-2/Flu/RSV Multiplex Test: Fact sheet for providers: https://www.fda.gov/media/119981/downloadFact sheet for patients: https://www.fda.gov/media/875235/download Covid 19 Resultson 2 SARS-CoV-2 (COVID-19) RNA [...] You may also be contacted by the [facility] to see if any of your [...] or Naproxen (Aleve) can also be used. Jshq-aai-rcaugkc cough and cold medicines can be used according to the instructions on the package. Some fkqr-xte-lybglia medicines also contain acetaminophen. Make sure you [...] water are not available, use alcohol-based hand surveillance systems engineer. Avoid touching your eyes, nose, and mouth [...] 24 nae (more content not included)... Normal [facility] GLUCOSE,1 HR SCREEN, PREGon 10-04-2021 Glucose [Mass/Vol] 116 mg/dL Normal <135 [facility] Comment on above: Result Comment: Diag nostic value with glucose loading dose of 50 g. Reference values from [place] Diabetes Association. Diabetes Care 2015;38(Suppl.1):S8-S16 Performed By: #### O AIRPORT SALES AGENT #### [facility] [address] [place] [address] RUBELLA IGG ABon 10-04-2021 RUBELLA IGG AB Negative Normal [facility] Comment on above: Result Comment: INTE RPRETATIVE [...] assays. Performed By: #### T +S #### [facility] [address] [place] [address] SYPHILIS SCREENING WITH REFL EXon 10-04-2021 SYPHILIS TOTAL AB Non-Reactive Normal NONREACTIVE [facility] Comment on above: Result Comment: No s ignificant level of Treponema pallidum antibody detected. Repeat testing in 2 to 4 weeks may be considered if early infection or incubating syphilis infection is suspected. Performed By: #### T +S #### [facility] [address] [place] [address] CBC ANEMIA PANEL WITH REFLEX ,PREGNANCYon 10-03-2021 Erythrocyte distribution width (RBC) [Ratio] 14.0 % Normal 11.5 - 14.5 [facility] Comment on above: Performed By: #### T +S #### [facility] [address] [place] [address] Hematocrit (Bld) [Volume fraction] 34.7 % Low 36.0 - 46.0 [facility] Comment on above: Performed By: #### T +S #### [facility] [address] [place] [address] Hemoglobin (Bld) [Mass/Vol] 11.1 g/dL Low 12.0 - 16.0 [facility] Comment on above: Performed By: #### T +S #### [facility] [address] [place] [address] MCHC (RBC) [Mass/Vol] 32.0 g/dL Normal 32.0 - 36.0 [facility] Comment on above: Performed By: #### T +S #### [facility] [address] [place] [address] MCV (RBC) [Entitic vol] 91 fL Normal 80 - 100 [facility] Comment on above: Performed By: #### T +S #### [facility] [address] [place] [address] Platelets (Bld) [#/Vol] 279 10*3/uL Normal 150 - 450 [facility] Comment on above: Performed By: #### T +S #### [facility] [address] [place] [address] RBC 3.81 x10E12/L Low 4.00 - 5.20 [facility] Comment on above: Performed By: #### T +S #### [facility] [address] [place] [address] REFLEX ADDED, ANEMIA PANEL NONE Normal [facility] Comment on above: Performed By: #### T +S #### [facility] [address] [place] [address] WBC (Bld) [#/Vol] 11.1 10*3/uL Normal 4.4 - 11.3 [facility] Comment on above: Performed By: #### T +S #### [facility] [address] [place] [address] Glucose, 1 Hour Screen, Preg nancyon 10-03-2021 Glucose 1 Hr post 50 g glucose PO [Mass/Vol] 116 mg/dL <135 MG-OBCLAUDIOW liz ramírez 1790 DO Work Phone: Comment on above: Diagnostic value wit h glucose loading dose of 50 g. Reference values from [place] Diabetes Association. Diabetes Care 2015;38(Suppl.1):S8-S16 Laboratory - [...] 100 [facility] [place] 2420 DO Work Phone: [phone] Platelets (Bld) [#/Vol] 279 10*3/uL 150 - 450 [facility] 2420 DO Work Phone: RBC (Bld) [#/Vol] 3.81 {x10E12/L} below low threshold See Below [facility] 2420 DO Work Phone: [phone] Comment on above: Reference Range: 4.0 0 - 5.20 WBC (Bld) [#/Vol] 11.1 10*3/uL 4.4 - 11.3 MG-KILN CHARGER-[place] 2420 DO Work Phone: No Panel [...] REFL EXon 10-03-2021 Lab Specimen Source Normal [facility] Comment on above: Performed By: #### T +S #### [facility] [address] [place] [address] T. pallidum IgG+IgM IA Ql (S) Non-Reactive [...] EFW (oz) 1 oz EFW by: Hadlock (JCT-JN-OM-FL) Extended County Engineer 7.9 mm CM 6.5 mm 85% Nicolaides [...] Normal LVOT view: Normal 3-vessel view: Normal 1-mttynz-cpdoxut view: Normal Heart / Thorax Situs: situs [...] hand: Normal (more content not included)... Normal [facility] No Panel Informationon 06-30 Normal [facility]-OB[facility]-MA C [...] gestational sac with a live fetus - [place] rump length is consistent with given SLIME [...] Pexsters NT 1.80 mm Anatomy Heart: Normal [place] and Situs. Stomach: Visible, with correct situs. [...] Electronically signed by: FLEX HOWE MD Normal [facility] OB Repeat 1st Trimester TAon 06-30-2021 OB [...] gestational sac with a live fetus - [place] rump length is consistent with given SLIME [...] Pexsters NT 1.80 mm Anatomy Heart: Normal [place] and [place]. Stomach: Visible, with correct situs. [...] Electronically signed by: FLEX HOWE MD Normal [facility] TOBACCO SCREEN MEDICAL PL AN ONLYon 06-24-2021 TOBACCO SCREEN, URINE Negative Normal [facility] Comment on above: Result Comment: Coti nine, a metabolite of nicotine, is measured to screen for nicotine exposure. The cut-off is set at 300ng/mL to detect active exposure (smoking). This test was developed and its performance characteristics were determined by the [facility]. Performed By: #### O AIRPORT SALES AGENT #### [facility] [address] [place] [address] AN ONLYon 06-23-2021 Cotinine Screen Ql (U) Negative [facility] [address] [place] Work Phone: Comment on above: Cotinine, a metaboli te of nicotine, is measured to screen for nicotine exposure. The cut-off is set at 300ng/mL to detect active exposure (smoking).This test was developed and its performance characteristics were determined by the [facility]. GC + CHLAMYDIA BY AMPLIFIED DETECTIONon 06-17-2021 CHLAMYDIA TRACH.,AMPLIFIED Negative Normal Negative [facility] Comment on above: Result Comment: The APTIMA Combo 2 assay is FDA-approved for Chlamydia trachomatis and Neisseria gonorrhoeae testing on female endocervical and vaginal swabs, ThinPrep liquid pap samples, male urine samples and urethral swabs. Performance characteristics for Chlamydia trachomatis and Neisseria gonorrhoeae testing on specific htl-EXE-dbdgjxpk sample types (female urine samples) have been validated by [facility]. This laboratory is certified by CLIA to perform high complexity testing. Samples from all other sites are not validated for this method. Performed By: #### O AIRPORT SALES AGENT #### [facility] [address] [place] [address] N.GONORRHEA,AMPLIFIED Negative Normal Negative [facility] Comment on above: Result Comment: The APTIMA Combo 2 assay is FDA-approved for Chlamydia trachomatis and Neisseria gonorrhoeae testing on female endocervical and vaginal swabs, ThinPrep liquid pap samples, male urine samples and urethral swabs. Performance characteristics for Chlamydia trachomatis and Neisseria gonorrhoeae testing on specific eid-IPG-dhvdoigd sample types (female urine samples) have been validated by [facility]. This laboratory is certified by CLIA to perform high complexity testing. Samples from all other sites are not validated for this method. Performed By: #### O AIRPORT SALES AGENT #### [facility] [address] [place] [address] PATH REVIEW-HGB IDENTIFICATI ONon 06-17-2021 PATH REV-HGB IDENT. R.DUMONT Normal [facility] Comment on above: Result Comment: By h er/his signature above, the Pathologist listed as making the final interpretation certifies that she/he has personally reviewed this case. Performed By: #### O AIRPORT SALES AGENT #### [facility] [address] [place] [address] HEMOGLOBIN IDENTIFICATIONon 06-16-2021 HEMOGLOBIN A 97.0 % Normal [facility] Comment on above: Performed By: #### H MAGGI ####[id number] [place] [address] HEMOGLOBIN A2 2.6 % Normal [facility] Comment on above: Result Comment: HGB A2 values may be falsely elevated in the presence of HGB S. Performed By: #### H MAGGI ####[id number] [id number] HEMOGLOBIN F 0.4 % Normal [facility] Comment on above: Performed By: #### H MAGGI ####[id number] [id number] INTERPRETATION SEE COMMENT Normal [facility] Comment on above: Result Comment: Norm al Performed By: #### H MAGGI ####[id number] [place] [address] HEMOGLOBIN A1Con 06-14-2021 Glucose [Mass/Vol] 103 mg/dL Normal [facility] Comment on above: Performed By: #### O AIRPORT SALES AGENT #### [facility] [address] [place] [address] HbA1c (Bld) [Mass fraction] 5.2 % Normal [facility] Comment on above: Result Comment: Diag nosis of Diabetes-Adults Non-Diabetic: < or = 5.6% Increased risk for developing diabetes: 5.7-6.4% Diagnostic of diabetes: > or = 6.5% . Monitoring of Diabetes Age (y) Therapeutic Goal (%) Adults: >18 <7.0 Pediatrics: 13-18 <7.5 7-12 <8.0 0- 6 7.5-8.5 [employer] Diabetes Association. Diabetes Care 33(S1), Mar 2009. Performed By: #### O AIRPORT SALES AGENT #### [facility] [address] [place] [address] CBC ANEMIA PANEL WITH REFLEX ,PREGNANCYon 06-13-2021 Erythrocyte distribution width (RBC) [Ratio] 13.7 % Normal 11.5 - 14.5 [facility] Comment on above: Performed By: #### A NEMI ####[address] [id number] Hematocrit (Bld) [Volume fraction] 38.2 % Normal 36.0 - 46.0 [facility] Comment on above: Performed By: #### A NEMI ####[address] [id number] Hemoglobin (Bld) [Mass/Vol] 11.8 g/dL Low 12.0 - 16.0 [facility] Comment on above: Performed By: #### A NEMI ####[address] [id number] MCHC (RBC) [Mass/Vol] 30.9 g/dL Low 32.0 - 36.0 [facility] Comment on above: Performed By: #### A NEMI ####[address] [id number] MCV (RBC) [Entitic vol] 88 fL Normal 80 - 100 [facility] Comment on above: Performed By: #### A NEMI ####[address] [id number] Platelets (Bld) [#/Vol] 347 10*3/uL Normal 150 - 450 [facility] Comment on above: Performed By: #### A NEMI ####[address] [id number] RBC 4.33 x10E12/L Normal 4.00 - 5.20 [facility] Comment on above: Performed By: #### A NEMI ####[address] [id number] REFLEX ADDED, ANEMIA PANEL NONE Normal [facility] Comment on above: Performed By: #### A NEMI ####[address] [place] [id number] WBC (Bld) [#/Vol] 10.0 10*3/uL Normal 4.4 - 11.3 [facility] Comment on above: Performed By: #### A NEMI ####[facility] [place], [place] [id number] Cult, Urineon 06-13-2021 Bacteria identified Cx Nom (U) [facility] [place] Work Phone: GC + CHLAMYDIA BY AMPLIFIED DETECTIONon 06-13-2021 Lab Specimen Source Thin Prep-Endocervical Normal [facility] Comment on above: Performed By: #### O AIRPORT SALES AGENT #### [facility] [address] [place] [address] GC + Chlamydia By Amplified Detectionon 06-13-2021 [...] trachomatis and Neisseria gonorrhoeae testing on specific nzb-CQY-nfxscieb sample types (female urine samples) have been validated by [facility]. This laboratory is certified by CLIA [...] trachomatis and Neisseria gonorrhoeae testing on specific tnl-OON-vozhxyul sample types (female urine samples) have been validated by [facility]. This laboratory is certified by CLIA to perform high complexity testing. Samples from all other sites are not validated for this method. HEPATITIS B SURFACE AGon HEP.B SURFACE AG Non-Reactive Normal NONREACTIVE [facility] Comment on above: Result Comment: Biot in interference may cause falsely decreased results. Patients taking a Biotin dose of up to 5 mg/day should refrain from taking Biotin for 24 hours before sample collection. Providers may contact their local laboratory for further information. Performed By: #### T +S #### [facility] [address] [place] [address] HEPATITIS C ABon 06-13-2021 HEPATITIS C AB Non-Reactive Normal NONREACTIVE [facility] Comment on above: Result Comment: Resu lts from patients taking biotin supplements or receiving high-dose biotin therapy should be interpreted with caution due to possible interference with this test. Providers may contact their local laboratory for further information. Performed By: #### H CVAB ####[id number] [place] [address] HIV 1/2 ANTIGEN/ANTIBODY SCR EEN WITH REFLEX TO CONFIRMATIONon 06-13-2021 HIV 1/2 AG/AB SCREEN Non-Reactive Normal NONREACTIVE [facility] Comment on above: Result Comment: [...] (viral load). Performed By: #### H IV ####[id number] [place] [address] HIV 1+2 Ab Qn (S) Non-Reactive See Below [employer] [place] Work Phone: Comment on above: SOURCE: [...] Hemoglobin A1Con 06-13-2021 Glucose [Mass/Vol] 103 mg/dL [employer] Work Phone: HbA1c (Bld) [Mass fraction] 5.2 % [employer] Work Phone: Comment on above: Diagnosis of Diabete s-Adults Non-Diabetic: < or = 5.6% Increased risk for developing diabetes: 5.7-6.4% Diagnostic of diabetes: > or = 6.5%. Monitoring of Diabetes Age (y) Therapeutic Goal (%) Adults: >18 <7.0 Pediatrics: 13-18 <7.5 7-12 <8.0 0- 6 7.5-8.5 [place] Diabetes Association. Diabetes Care 33(S1), Mar 2009. Hepatitis B Surface Antigeno n 06-13-2021 Hepatitis B Surface Antigen Non-Reactive See Below [employer] Work Phone: Comment on above: SOURCE: Reference [...] a) No falls within the last year [facility] [employer] 2420 DO Work Phone: Last menstrual period start date 29Mar2021 [facility] 2420 DO Work Phone: Tobacco use status CPHS b) No [facility] 2420 DO Work Phone: Laboratory - Blood bankon ABO group Nom (Bld) A [employer] Work Phone: Blood group antibody screen Ql Negative [employer] Work Phone: Rh immune globulin screen (Bld) [Interp] Positive [employer] celena Charles Yara Work Phone: Laboratory - Cytologyon Cytology report Cyto stain.thin prep Doc (Cvx/Vag) Date of Procedure: 06/13/2021 Pathologist: [facility], Cytology Date Reported: 06/24/2021 Date Received: 06/13/2021 Submitting Physician: TOM BULL CNM FINAL CYTOL [facility] C [address] [place] Work Phone: Laboratory - Hematology and Cell countson 06-13-2021 Erythrocyte distribution width (RBC) [Ratio] 13.7 % See Below [employer] [place] Work Phone: Comment on above: Reference Range: 11. 5 - 14.5 Hematocrit (Bld) [Volume fraction] 38.2 % See Below [employer] Work Phone: Comment on above: Reference Range: 36. 0 - 46.0 Hemoglobin (Bld) [Mass/Vol] 11.8 g/dL below low threshold See Below [employer] Work Phone: Comment on above: Reference Range: 12. 0 - 16.0 MCHC (RBC) [Mass/Vol] 30.9 g/dL below low threshold See Below [employer] Work Phone: Comment on above: Reference Range: 32. 0 - 36.0 MCV (RBC) [Entitic vol] 88 fL 80 - 100 [employer] Work Phone: Platelets (Bld) [#/Vol] 347 10*3/uL 150 - 450 [employer] Work Phone: RBC (Bld) [#/Vol] 4.33 {x10E12/L} See Below [employer] Work Phone: Comment on above: Reference Range: 4.0 0 - 5.20 WBC (Bld) [#/Vol] 10.0 10*3/uL 4.4 - 11.3 [facility] -[place] Work Phone: No Panel Informationon 06-13 NONE [facility] Work Phone: SEE COMMENT [facility] C [address] [place] Work Phone: Comment on above: Normal 2.6 % [facility] [address] [place] Work Phone: Comment on above: HGB A2 values may be falsely elevated in the presence of HGB S. 0.4 % [facility] [address] [place] Work Phone: [phone] 97.0 % [facility] C 1200 [place] Work Phone: Never [facility] 2420 DO Work Phone: [phone] Not depressed [facility] 2420 DO Work Phone: [phone] [facility] 2420 DO Work Phone: [phone] Comment on above: Q1: As much as I alw ays couldQ2: As much as I ever didQ3: Not very oftenQ4: Yes, sometimesQ5: No, not muchQ6: No, I have been coping as well as everQ7: No, not at allQ8: No, not all allQ9: No, pgccgE71: Never Path Review-HGB Identificati onon 06-13-2021 Path Review-HGB Identification DESTINY [facility] [address] [place] Work Phone: Comment on above: By her/his signature above, the Pathologist listed as making the final interpretation certifies that she/he has personally reviewed this case. RUBELLA IGG ABon 06-13-2021 RUBELLA IGG AB [employer] Normal [facility] Comment on above: Result Comment: INTE RPRETATIVE [...] in serological assays. Performed By: #### O AIRPORT SALES AGENT #### [facility] [address] [place] [address] Rubella IgG Antibodyon 06-13 Rubella virus IgG IA Ql [employer] Work Phone: Comment on above: INTERPRETATIVE COMME [...] 06-13-2021 SYPHILIS TOTAL AB Non-Reactive Normal NONREACTIVE [facility] Comment on above: Result Comment: No s ignificant level of Treponema pallidum antibody detected. Repeat testing in 2 to 4 weeks may be considered if early infection or incubating syphilis infection is suspected. Performed By: #### S YPHR #### [facility] [address] [place], [place] [id number] Lab Specimen Source Normal [facility] Comment on above: Performed By: #### S YPHR #### [facility] [address] [place], [place] [id number] Performed By: #### H IV ####[id number] [place] [address] Performed By: #### H CVAB ####[id number] [place] [address] Performed By: #### T +S #### [facility] [address] [place] [address] T. pallidum IgG+IgM IA Ql (S) Non-Reactive See Below [employer] [facility] Work Phone: Comment on above: SOURCE: Reference Ra nge: NONREACTIVENo significant level of Treponema pallidum antibody detected. Repeat testing in 2 to 4 weeks may be considered if early infection or incubating syphilis infection is suspected. TYPE + SCREENon 06-13-2021 ABO TYPE A Normal [facility] Comment on above: Performed By: #### T +S #### [facility] [id number] [place] [address] RH TYPE Positive Normal [facility] Comment on above: Performed By: #### T +S #### [facility] [address] [place] [address] URINE CULTURE,BACTERIALon URINE CULTURE,BACTERIAL PATIENT: SHU ROY LOCATION: [facility] BILL#: [id number] : 86 AGE: SEX: F ORDERED BY: TOM BULL SOURCE: URINE COLLECTED: 06/13/21 00:00 ANTIBIOTICS AT MELISSA.: RECEIVED : 06/13/21 16:41 SITE: Unspecified R E S U L T S URINE CULTURE,BACTERIAL FINAL 06/14/21 10:39 NO SIGNIFICANT GROWTH. Normal [facility] Comment on above: Performed By: #### O AIRPORT SALES AGENT #### [facility] [address] [place] [address] No Panel Informationon 06-04 Normal MG-OBGYN-MA C [...] Electronically signed by: JANINE BOWMAN MD Normal [facility] HCG,BETA-QUANTITATIVEon 04-09 HCG,BETA-QUANTITATIVE 79 mIU/mL Abnormal [facility] Comment on above: Result Comment: Low- level [...] HCG measurement is performed using the Eli[employer] [place] [employer] Access Immunoassay which detects intact HCG and free beta HCG subunit. This test is not indicated for use as a tumor marker. HCG testing is performed using a different test methodology at [facility] than other [facility] [facility]. Direct result comparison should only be made within the same method. REF VALUES NON FEMALE <5 MALES <5 Performed By: #### H CGQU ####[facility] [place], [place] [id number] Office Visit (Family Ying terrell)on 05-01-2021 Follow-up [...] a) No falls within the last year -[facility] Work Phone: Tobacco use status CPHS b) No -[facility] Work Phone: Blood Pressure Cuff Sizeon 1 Blood Pressure Cuff Size Adult -[facility] Work Phone: Tobacco Screening.on 021 Last menstrual period start date [id number] -[facility] Work Phone: Tobacco Screening. b) No -[facility] Work Phone: Tobacco Screening.on 021 Last menstrual period start date [id number] -[facility] Work Phone: Tobacco Screening. b) No -[facility] Work Phone: Estradiol, Serumon 1 E2 [Mass/Vol] 169 pg/mL MG-OBGYN-Ri sman 310 [facility] Work Phone: Comment on above: Estradiol measuremen t is performed using the Eli[employer] Access Sensitive Estradiol Immunoassay. Estradiol testing is performed using a different test methodology at [facility] than other [facility]. Direct result comparison should only be made within the same method.REF VALUESEARLY FOLLICULAR 22-115MID FOLLICULAR 25-115OVULATORY PEAK 32-517MID LUTEAL 37-246POSTMENOPAUSE <15- 25MALE <15- 32 Luteinizing Hormone, Serumon 03-13-2020 Lutropin Qn 25.2 {IU/L} [facility]-Ri sman 310 [facility] Work Phone: Comment on above: Luteinizing Hormone [LH] is performed using the Elias [employer] Access Immunoassay. LH testing is performed using a different test methodology at [facility] than other [facility]. Direct result comparison should only be [...] Work Phone: PROGESTERONEon 06-30-2019 PROGESTERONE <0.3 Normal [facility] Comment on above: Result Comment: Note new reference range as of 05/09/2019. REF VALUES MALE <0.3- 1.2 FOLLICULAR PHASE <0.3- 1.4 LUTEAL PHASE 3.3-25.6 MID-LUTEAL PHASE 4.4-28.0 POSTMENOPAUSAL <0.3- 0.7 FEMALES: 1ST TRIMESTER 11.2- 90.0 2ND TRIMESTER 25.6- 89.4 3RD TRIMESTER 48.4-422.5 . Patients receiving DHEA-S supplements may show false elevation of progesterone for results near 1.0 ng/mL. Contact laboratory at [phone] if alternative testing is needed. Performed By: #### P YARELI #### [facility] [address] [place] [address] Progesterone, Serumon 2019 Progesterone [Mass/Vol] ng/mL [facility] Work Phone: Comment on above: Note new reference r lula as of 05/09/2019.REF VALUESMALE <0.3- 1.2 FOLLICULAR PHASE <0.3- 1.4 LUTEAL PHASE 3.3-25.6 MID-LUTEAL PHASE 4.4-28.0POSTMENOPAUSAL <0.3- 0.7 FEMALES: 1ST TRIMESTER 11.2- 90.0 2ND TRIMESTER 25.6- 89.4 3RD TRIMESTER 48.4-422.5 .Patients receiving DHEA-S supplements may show false elevation ofprogesterone for results near 1.0 ng/mL. Contact laboratory [phone] if alternative testing is needed. Vital Signs Date Time Vital Sign Value Performing Clinician Facility 12-13-2024 11:55-0400 Body height 157.[address] Judie Bella MD Work Phone: [facility] 12-13-2024 11:55-0400 Body mass index (BMI) [Ratio] 50.3 kg/m2 Dr. Judie Bella MD Work Phone: [facility] 12-13-2024 11:55-0400 Body weight 124.[address] Judie Bella MD Work Phone: [facility] 12-13-2024 11:48-0400 Body temperature 98.5 [degF] Dr. Judie Bella MD Work Phone: [facility] 12-13-2024 11:48-0400 Diastolic blood pressure 86 mm[Hg] Dr. Judie Bella MD Work Phone: [facility] 12-13-2024 11:48-0400 Heart rate 96 /min Dr. Judie Bella MD Work Phone: [facility] 12-13-2024 11:48-0400 Respiratory rate 18 /min Dr. Judie Bella MD Work Phone: [facility] 12-13-2024 11:48-0400 SaO2% (BldA) [Mass fraction] 98 % Dr. Judie Bella MD Work Phone: [facility] 12-13-2024 11:48-0400 Systolic blood pressure 127 mm[Hg] Dr. Judie Bella MD Work Phone: [facility] 12-13-2024 09:21-0400 Body height 157.[address] Judie Bella MD Work Phone: [facility] 12-13-2024 09:21-0400 Body mass index (BMI) [Ratio] 50.5 kg/m2 Dr. Judie Bella MD Work Phone: [facility] 12-13-2024 09:21-0400 Body weight 125.[address] Judie Bella MD Work Phone: [facility] 12-13-2024 09:21-0400 Diastolic blood pressure 85 mm[Hg] Dr. Judie Bella MD Work Phone: [facility] 12-13-2024 09:21-0400 Systolic blood pressure 126 mm[Hg] Dr. Judie Bella MD Work Phone: [facility] 12-08-2024 09:44-0400 Body weight 125.[address] Judie Bella MD Work Phone: [facility] 12-08-2024 09:44-0400 Diastolic blood pressure 79 mm[Hg] Dr. Judie Bella MD Work Phone: [facility] 12-08-2024 09:44-0400 Systolic blood pressure 123 mm[Hg] Dr. Judie Bella MD Work Phone: [facility] 12-08-2024 08:49-0400 Body height 157.[address] Judie Bella MD Work Phone: [facility] 11-30-2024 09:44-0400 Body height 157.[address] Judie Bella MD Work Phone: [facility] 11-30-2024 09:44-0400 Body mass index (BMI) [Ratio] 50.5 kg/m2 Dr. Judie Bella MD Work Phone: [facility] 11-30-2024 09:42-0400 Body mass index (BMI) [Ratio] 50.7 kg/m2 Dr. Judie Bella MD Work Phone: [facility] 11-30-2024 09:42-0400 Body weight 125.[address] Judie Bella MD Work Phone: [facility] 11-30-2024 09:42-0400 Diastolic blood pressure 84 mm[Hg] Dr. Judie Bella MD Work Phone: [facility] 11-30-2024 09:42-0400 Systolic blood pressure 129 mm[Hg] Dr. Judie Bella MD Work Phone: [facility] 11-23-2024 09:22-0400 Body height 157.[address] Judie Bella MD Work Phone: [facility] 11-23-2024 09:22-0400 Body mass index (BMI) [Ratio] 50.3 kg/m2 Dr. Judie Bella MD Work Phone: [facility] 11-23-2024 09:22-0400 Body weight 124.[address] Judei Bella MD Work Phone: [facility] 11-23-2024 09:22-0400 Diastolic blood pressure 75 mm[Hg] Dr. Judie Bella MD Work Phone: [facility] 11-23-2024 09:22-0400 Systolic blood pressure 114 mm[Hg] Dr. Judie Bella MD Work Phone: [facility] 10-30-2024 13:49-0400 Body height 157.[address] Tawana Timmons MD Work Phone: [facility] 10-30-2024 13:49-0400 Body mass index (BMI) [Ratio] 49.1 kg/m2 Dr. Tawana Timmons MD Work Phone: [facility] 10-30-2024 13:49-0400 Body weight 121.[address] Tawana Timmons MD Work Phone: [facility] 10-30-2024 13:49-0400 Diastolic blood pressure 83 mm[Hg] Dr. Tawana Timmons MD Work Phone: [facility] 10-30-2024 13:49-0400 Systolic blood pressure 120 mm[Hg] Dr. Tawana Timmons MD Work Phone: [facility] 10-02-2024 09:42-0400 Body height 157.48 cm Carmen Perdomo CNM Work Phone: [facility] 10-02-2024 09:42-0400 Body mass index (BMI) [Ratio] 48.5 kg/m2 Carmen Perdomo CNM Work Phone: [facility] 10-02-2024 09:42-0400 Body weight 120.37 kg Carmen Perdomo CNM Work Phone: [facility] 10-02-2024 09:42-0400 Diastolic blood pressure 83 mm[Hg] Carmen Perdomo CNM Work Phone: [facility] 10-02-2024 09:42-0400 Systolic blood pressure 124 mm[Hg] Carmen Perdomo CNM Work Phone: [facility] 09-01-2024 14:59-0400 Body height 157.48 cm Carmen Perdomo CNM Work Phone: [facility] 09-01-2024 14:57-0400 Body mass index (BMI) [Ratio] 47.4 kg/m2 Carmen Perdomo CNM Work Phone: [facility] 09-01-2024 14:57-0400 Body weight 117.53 kg Carmen Perdomo CNM Work Phone: [facility] 09-01-2024 14:57-0400 Diastolic blood pressure 86 mm[Hg] Carmen Perdomo CNM Work Phone: [facility] 09-01-2024 14:57-0400 Systolic blood pressure 119 mm[Hg] Carmen Perdomo CNM Work Phone: [facility] 08-02-2024 11:04-0400 Body height 157.48 cm Carmen Perdomo CNM Work Phone: [facility] 08-02-2024 11:02-0400 Body mass index (BMI) [Ratio] 48.6 kg/m2 Carmen Perdomo CNM Work Phone: [facility] 08-02-2024 11:02-0400 Body weight 120.65 kg Carmen Perdomo CNM Work Phone: [facility] 08-02-2024 11:02-0400 Diastolic blood pressure 75 mm[Hg] Carmen Perdomo CNM Work Phone: [facility] 08-02-2024 11:02-0400 Systolic blood pressure 118 mm[Hg] Carmen Perdomo CNM Work Phone: [facility] 07-06-2024 15:06-0400 Body height 157.48 cm Carmen Perdomo CNM Work Phone: [facility] 07-06-2024 15:06-0400 Body mass index (BMI) [Ratio] 46 kg/m2 Carmen Perdomo CNM Work Phone: [facility] 07-06-2024 15:06-0400 Body weight 114.07 kg Carmen Perdomo CNM Work Phone: [facility] 07-06-2024 15:06-0400 Diastolic blood pressure 85 mm[Hg] Carmen Perdomo CNM Work Phone: [facility] 07-06-2024 15:06-0400 Systolic blood pressure 123 mm[Hg] Carmen Perdomo CNM Work Phone: [facility] 06-09-2024 13:11-0400 Body height 157.48 cm Carmen Perdomo CNM Work Phone: [facility] 06-09-2024 13:11-0400 Body mass index (BMI) [Ratio] 46.5 kg/m2 Carmen Perdomo CNM Work Phone: [facility] 06-09-2024 13:11-0400 Body weight 115.43 kg Carmen Perdomo CNM Work Phone: [facility] 06-09-2024 13:11-0400 Diastolic blood pressure 80 mm[Hg] Carmen Perdomo CNM Work Phone: [facility] 06-09-2024 13:11-0400 Systolic blood pressure 125 mm[Hg] Carmen Perdomo CNM Work Phone: [facility] 05-03-2024 12:07-0500 Body height 157.48 cm Carmen Perdomo CNM Work Phone: [facility] 05-03-2024 12:05-0500 Body mass index (BMI) [Ratio] 45.3 kg/m2 Carmen Perdomo CNM Work Phone: [facility] 05-03-2024 12:05-0500 Body weight 112.49 kg Carmen Perdomo CNM Work Phone: [facility] 05-03-2024 12:05-0500 Diastolic blood pressure 66 mm[Hg] Carmen Perdomo CNM Work Phone: [facility] 05-03-2024 12:05-0500 Systolic blood pressure 99 mm[Hg] Carmen Perdomo CNM Work Phone: [facility] 08-05-2023 22:09-0400 Diastolic Blood Pressure Non-Invasive 78 mm[Hg] JOSEPH DURESKA DO [facility] 08-05-2023 22:09-0400 Heart rate 96 /min JOSEPH DURESKA DO [facility] 08-05-2023 22:09-0400 Respiratory rate 16 /min JOSEPH DURESKA DO [facility] 08-05-2023 22:09-0400 Systolic Blood Pressure Non-Invasive 150 mm[Hg] JOSEPH DURESKA DO [facility] 08-05-2023 17:08-0400 Diastolic Blood Pressure Non-Invasive 108 mm[Hg] JOSEPH DURESKA DO [facility] 08-05-2023 17:08-0400 Heart rate 98 /min JOSEPH DURESKA DO [facility] 08-05-2023 17:08-0400 Respiratory rate 16 /min JOSEPH DURESKA DO [facility] 08-05-2023 17:08-0400 Systolic Blood Pressure Non-Invasive 154 mm[Hg] JOSEPH DURESKA DO [facility] 08-05-2023 15:50-0400 Body temperature 98.6 [degF] JOSEPH DURESKA DO [facility] 08-05-2023 15:50-0400 Body weight 100 kg JOSEPH DURESKA DO [facility] 08-05-2023 15:50-0400 Diastolic Blood Pressure Non-Invasive 82 mm[Hg] JOSEPH DEL CID DO [facility] 08-05-2023 15:50-0400 Heart rate 102 /min JOSEPH DEL CID DO [facility] 08-05-2023 15:50-0400 Respiratory rate 20 /min JOSEPH DEL CID DO [facility] 08-05-2023 15:50-0400 Systolic Blood Pressure Non-Invasive 170 mm[Hg] JOSEPH DEL CID DO [facility] 02-04-2022 14:40-0500 Body height 157.48 cm Celio Zhou Work Phone: QR-KLLPZ-Iaeqigmf 2420 DO Work Phone: 02-04-2022 14:40-0500 Body mass index (BMI) [Ratio] 44.26 kg/m2 Celio Zhou Work Phone: TV-SWPFE-Detjxchu 2420 DO Work Phone: 02-04-2022 14:40-0500 Body surface area Derived from formula 2.07 m2 Celio Zhou Work Phone: BO-VANBD-Vujvqxlv 2420 DO Work Phone: 02-04-2022 14:40-0500 Body weight 109.77 kg Celio Zhou Work Phone: AL-LIMGX-Zizibver 2420 DO Work Phone: 02-04-2022 14:40-0500 Diastolic blood pressure 84 mm[Hg] Celio Zhou Work Phone: FH-FWWHV-Cbzmcfob 2420 DO Work Phone: 02-04-2022 14:40-0500 Systolic blood pressure 120 mm[Hg] Celio Zhou Work Phone: TJ-FKHTY-Earoygfw 2420 DO Work Phone: 02-04-2022 14:40-0500 0 1 Celio Zhou Work Phone: BP-TMECE-Vzfemvaq 2420 DO Work Phone: Comment on above: [employer] 01-19-2022 14:09-0500 Diastolic blood pressure 83 mm[Hg] Celio Zhou Work Phone: MN-IOANK-BQM [address] [place] Work Phone: 01-19-2022 14:09-0500 Systolic blood pressure 128 mm[Hg] Celio Zhou Work Phone: KD-MHXGF-KKR [address] [place] Work Phone: 01-15-2022 15:07-0500 Body height 157.48 cm Celio Zhou Work Phone: KD-WGCWR-Vuxaqcs 2nd Fl Work Phone: 01-15-2022 15:07-0500 Diastolic blood pressure 88 mm[Hg] Celio Zhou Work Phone: AY-KDROH-Fjhawsi 2nd Fl Work Phone: 01-15-2022 15:07-0500 Systolic blood pressure 128 mm[Hg] Celio Zhou Work Phone: GW-NESMO-Djwowvj 2nd Fl Work Phone: 01-11-2022 14:24-0500 Diastolic blood pressure 97 mm[Hg] [facility] Work Phone: 01-11-2022 14:24-0500 Heart rate 85 /min [facility] Work Phone: 01-11-2022 14:24-0500 Systolic blood pressure 131 mm[Hg] [facility] Work Phone: 01-11-2022 12:46-0500 Body height 157.48 cm [facility] Work Phone: 01-11-2022 12:46-0500 Body mass index (BMI) [Ratio] 45.8 kg/m2 [facility] Work Phone: 01-11-2022 12:46-0500 Body weight 113.85 kg [facility] Work Phone: 01-07-2022 13:18-0400 Body temperature 97.88 [degF] Celio Jorgeolas Other Phone: [facility] 01-07-2022 13:18-0400 Diastolic blood pressure 80 mm[Hg] Celio Jorgeolas Other Phone: [facility] 01-07-2022 13:18-0400 Heart rate 96 /min Celio Jorgeolas Other Phone: [facility] 01-07-2022 13:18-0400 Respiratory rate 20 /min Celio Jorgeolas Other Phone: [facility] 01-07-2022 13:18-0400 SaO2% (BldA) [Mass fraction] 97 % Celio Jorgeolas Other Phone: [facility] 01-07-2022 13:18-0400 Systolic blood pressure 123 mm[Hg] Celio Jorgeolas Other Phone: [facility] 12-31-2021 14:39-0400 Body height 157.48 cm Celio Hankins Escolas Work Phone: CG-LTPAG-MJO [address] [place] Work Phone: 12-31-2021 14:39-0400 Body mass index (BMI) [Ratio] 49.02 kg/m2 Celio Hankins Escolas Work Phone: TE-KUADD-ZRX [address] [place] Work Phone: 12-31-2021 14:39-0400 Body surface area Derived from formula 2.16 m2 Celio Zhou Work Phone: FA-ATONO-BJE [address] [place] Work Phone: 12-31-2021 14:39-0400 Body weight 121.56 kg Celio Zhou Work Phone: WK-OOKNO-SLD [address] [place] Work Phone: 12-31-2021 14:39-0400 Diastolic blood pressure 80 mm[Hg] Celio Zhou Work Phone: ZJ-SAXRF-LEX [address] [place] Work Phone: 12-31-2021 14:39-0400 Systolic blood pressure 124 mm[Hg] Celio Zhou Work Phone: PD-ZYKXX-JNQ [address] [place] Work Phone: 12-24-2021 15:32-0400 Body height 157.48 cm Celio Zhou Work Phone: XX-ZBCNF-Obyfdetu 2420 DO Work Phone: 12-24-2021 15:32-0400 Body mass index (BMI) [Ratio] 48.84 kg/m2 Celio Zhou Work Phone: MO-QDMVF-Wvlastvt 2420 DO Work Phone: 12-24-2021 15:32-0400 Body surface area Derived from formula 2.16 m2 Celio Zhou Work Phone: DZ-BBEXR-Beqalubl 2420 DO Work Phone: 12-24-2021 15:32-0400 Body weight 121.11 kg Celio Zhou Work Phone: AD-VPATM-Ncmsucis 2420 DO Work Phone: 12-24-2021 15:32-0400 Diastolic blood pressure 68 mm[Hg] Celio Zhou Work Phone: VL-LWDYO-Blqnnqii 2420 DO Work Phone: 12-24-2021 15:32-0400 Systolic blood pressure 128 mm[Hg] Celio Zhou Work Phone: HI-OQRBE-Lozuuubv 2420 DO Work Phone: 12-17-2021 13:52-0400 Body height 157.48 cm Celio Zhou Work Phone: UM-DPHTL-OZB [address] [place] Work Phone: 12-17-2021 13:52-0400 Body mass index (BMI) [Ratio] 48.93 kg/m2 Celio Zhou Work Phone: DO-EJEMW-IAH [address] [place] Work Phone: 12-17-2021 13:52-0400 Body surface area Derived from formula 2.16 m2 Celio Zhou Work Phone: UL-KBSKC-LSZ [address] [place] Work Phone: 12-17-2021 13:52-0400 Body weight 121.34 kg Celio Zhou Work Phone: KQ-LXMIU-BUY [address] [place] Work Phone: 12-17-2021 13:52-0400 Diastolic blood pressure 80 mm[Hg] Celio Zhou Work Phone: GA-OCGMX-OON [address] [place] Work Phone: 12-17-2021 13:52-0400 Systolic blood pressure 110 mm[Hg] Celio Zhou Work Phone: BM-SUVJP-BTN [address] [place] Work Phone: 12-12-2021 15:39-0400 Body height 157.48 cm Celio Zhou Work Phone: FA-MCLCA-PMC [address] [place] Work Phone: 12-12-2021 15:39-0400 Body mass index (BMI) [Ratio] 48.65 kg/m2 Celio Ledesmas Work Phone: IX-CTPVO-NAL [address] [place] Work Phone: 12-12-2021 15:39-0400 Body surface area Derived from formula 2.16 m2 Celio Ledesmas Work Phone: QV-MSIAJ-HGJ [address] [place] Work Phone: 12-12-2021 15:39-0400 Body weight 120.66 kg Celio Ledesmas Work Phone: OX-EVJGE-BNV [address] [place] Work Phone: 12-12-2021 15:39-0400 Diastolic blood pressure 72 mm[Hg] Celio Zhou Work Phone: XY-IZDBX-TIK [address] [place] Work Phone: 12-12-2021 15:39-0400 Systolic blood pressure 112 mm[Hg] Celio [employer] Work Phone: LR-EJFBZ-GZY [address] [place] Work Phone: 10-03-2021 14:50-0400 Body height 157.48 cm Celio Zhou Work Phone: CP-EQNAF-ACW [address] [place] Work Phone: 10-03-2021 14:50-0400 Body mass index (BMI) [Ratio] 46.46 kg/m2 Celio Ledesmas Work Phone: EP-DXZQN-IUV [address] [place] Work Phone: 10-03-2021 14:50-0400 Body surface area Derived from formula 2.12 m2 Celio Ledesmas Work Phone: CP-ZCGAD-BLW [address] [place] Work Phone: 10-03-2021 14:50-0400 Body weight 115.21 kg Celio Ledesmas Work Phone: GU-NFTZI-MDY [address] [place] Work Phone: 10-03-2021 14:50-0400 Diastolic blood pressure 70 mm[Hg] Celio Zhou Work Phone: LH-XHZKA-EYS [address] [place] Work Phone: 10-03-2021 14:50-0400 Systolic blood pressure 118 mm[Hg] Celio Zhou Work Phone: YY-BGGKT-XFX [address] [place] Work Phone: 09-11-2021 11:20-0400 Body height 157.48 cm Celio Zhou Work Phone: RB-SEIIQ-Ugqozekp 2420 DO Work Phone: 09-11-2021 11:20-0400 Body mass index (BMI) [Ratio] 44.81 kg/m2 Celio Zhou Work Phone: SE-DUVGF-Wlmukvhw 2420 DO Work Phone: 09-11-2021 11:20-0400 Body surface area Derived from formula 2.08 m2 Celio Zhou Work Phone: VS-IZOOF-Zkoejtlh 2420 DO Work Phone: 09-11-2021 11:20-0400 Body weight 111.13 kg Celio Zhou Work Phone: UF-DFFFE-Tpqbafvu 2420 DO Work Phone: 09-11-2021 11:20-0400 Diastolic blood pressure 70 mm[Hg] Celio Zhou Work Phone: TU-MARKH-Pwmksose 2420 DO Work Phone: 09-11-2021 11:20-0400 Systolic blood pressure 110 mm[Hg] Celio Zhou Work Phone: AT-GADSN-Fgwylxis 2420 DO Work Phone: 09-11-2021 11:20-0400 0 1 Celio Zhou Work Phone: EW-DDDXS-Qijddkhu 2420 DO Work Phone: Comment on above: [facility] 08-07-2021 11:11-0400 Body height 157.48 cm Celio Zhou Work Phone: DR-HFRFX-Pzeabsea 2420 DO Work Phone: 08-07-2021 11:11-0400 Body mass index (BMI) [Ratio] 43.71 kg/m2 Celio Zhou Work Phone: AT-WOGKX-Lextvoba 2420 DO Work Phone: 08-07-2021 11:11-0400 Body surface area Derived from formula 2.06 m2 Celio Zhou Work Phone: ZK-BMDCY-Kgeegqlp 2420 DO Work Phone: 08-07-2021 11:11-0400 Body weight 108.41 kg Celio Zhou Work Phone: BT-KTVIF-Mpyjoroe 2420 DO Work Phone: 08-07-2021 11:11-0400 Diastolic blood pressure 64 mm[Hg] Celio Zhou Work Phone: CS-JHJDX-Jkmhdkqh 2420 DO Work Phone: 08-07-2021 11:11-0400 Systolic blood pressure 116 mm[Hg] Celio Zhou Work Phone: IP-IGSLL-Wozmasdz 2420 DO Work Phone: 07-11-2021 16:14-0400 Body height 157.48 cm Celio Zhou Work Phone: WV-VSWKY-Fmpazcyi 2420 DO Work Phone: 07-11-2021 16:14-0400 Body mass index (BMI) [Ratio] 43.53 kg/m2 Celio Zhou Work Phone: UZ-ZHPUU-Oncjpcpp 2420 DO Work Phone: 07-11-2021 16:14-0400 Body surface area Derived from formula 2.06 m2 Celio Zhou Work Phone: LU-VYWKC-Ovkmsfzy 2420 DO Work Phone: 07-11-2021 16:14-0400 Body weight 107.96 kg Celio Zhou Work Phone: KN-MGYGE-Ulxvpgyj 2420 DO Work Phone: 07-11-2021 16:14-0400 Diastolic blood pressure 70 mm[Hg] Celio Zhou Work Phone: YJ-HJAKS-Rkafiheh 2420 DO Work Phone: 07-11-2021 16:14-0400 Systolic blood pressure 120 mm[Hg] Celio Zhou Work Phone: RA-OBCMP-Ewkpwtfv 2420 DO Work Phone: 06-13-2021 08:39-0400 Body height 157.48 cm Celio Zhou Work Phone: FL-XOEWG-Fkcslcui 2420 DO Work Phone: 06-13-2021 08:39-0400 Body mass index (BMI) [Ratio] 43.9 kg/m2 Celio Zhou Work Phone: YG-OJQVB-Mefswdgy 2420 DO Work Phone: 06-13-2021 08:39-0400 Body surface area Derived from formula 2.07 m2 Celio Zhou Work Phone: MT-VALWL-Qienqjlf 2420 DO Work Phone: 06-13-2021 08:39-0400 Body weight 108.86 kg Celio W Escolas Work Phone: LL-JQEDK-Anbbvgsi 2420 DO Work Phone: 06-13-2021 08:39-0400 Diastolic blood pressure 64 mm[Hg] Celio Zhou Work Phone: YN-PBGMA-Wodtxaxs 2420 DO Work Phone: 06-13-2021 08:39-0400 Systolic blood pressure 118 mm[Hg] Celio Zhou Work Phone: RO-YFOUW-Vumrosud 2420 DO Work Phone: 06-13-2021 08:39-0400 0 1 Celio Zhou Work Phone: BZ-GVMFC-Gypmlozo 2426 DO Work Phone: Comment on above: [facility] 05-01-2021 13:23-0500 Body height 157.48 cm Celio Zhou Work Phone: [facility] Work Phone: 05-01-2021 13:23-0500 Body mass index (BMI) [Ratio] 43.01 kg/m2 Celio Zhou Work Phone: [facility] Work Phone: 05-01-2021 13:23-0500 Body surface area Derived from formula 2.05 m2 Celio [facility]: 05-01-2021 13:23-0500 Body temperature 97.5 [degF] [facility] Work [facility]: 05-01-2021 13:23-0500 Body weight 106.65 kg Celio Zhou Work Phone: [facility] Work Phone: 05-01-2021 13:23-0500 Diastolic blood pressure 80 mm[Hg] Celio Zhou Work Phone: [facility] Work Phone: 05-01-2021 13:23-0500 Heart rate 88 /min Celio Zhou Work Phone: [facility] Work Phone: 05-01-2021 13:23-0500 Respiratory rate 14 /min Celio Zhou Work Phone: [facility] Work Phone: 05-01-2021 13:23-0500 SaO2% (BldA) [Mass fraction] 98 % [facility]: 05-01-2021 13:23-0500 Systolic blood pressure 122 mm[Hg] Cel[facility] Work Phone: 12-10-2020 09:50-0400 Body height 157.48 cm Celio Zhou [facility] Work Phone: 12-10-2020 09:50-0400 Body mass index (BMI) [Ratio] 40.57 kg/m2 Celio Ledesmas [facility] Work Phone: 12-10-2020 09:50-0400 Body surface area Derived from formula 2 m2 Celio Zhou Work Phone: [facility] [facility] Work Phone: 12-10-2020 09:50-0400 Body temperature 97.8 [degF] Celio W Escolas [facility] Work Phone: 12-10-2020 09:50-0400 Body weight 100.61 kg Celio Zhou [facility] Work Phone: 12-10-2020 09:50-0400 Diastolic blood pressure 78 mm[Hg] [facility] Led[facility] Work Phone: 12-10-2020 09:50-0400 Heart rate 69 /min Celio Zhou [facility]: [facility] Work Phone: 12-10-2020 09:50-0400 Respiratory rate 16 /min Celio Zhou Work Phone: [facility] Work Phone: 12-10-2020 09:50-0400 SaO2% (BldA) [Mass fraction] 99 % Celio Ledesmas Work Phone: [facility] Work Phone: 12-10-2020 09:50-0400 Systolic blood pressure 112 mm[Hg] Celio Ledesmas Work Phone: [facility] Work Phone: 10-08-2020 10:53-0400 Body height 157.48 cm Celio Ledesmas [facility]: [facility] Work Phone: 10-08-2020 10:53-0400 Body mass index (BMI) [Ratio] 40.6 kg/m2 Celio Ledesmas Work Phone: [facility] Work Phone: 10-08-2020 10:53-0400 Body surface area Derived from formula 2 m2 Celio Ledesmas Work Phone: [facility] Work Phone: 10-08-2020 10:53-0400 Body temperature 97.2 [degF] Celio Ledesmas Work Phone: [facility] Work Phone: 10-08-2020 10:53-0400 Body weight 100.7 kg Celio Ledesmas Work Phone: [facility] Work Phone: 10-08-2020 10:53-0400 Diastolic blood pressure 84 mm[Hg] Celio Led[facility]mas [facility] Work Phone: 10-08-2020 10:53-0400 Heart rate 80 /min Celio Ledesmas [facility]: [facility] Work Phone: 10-08-2020 10:53-0400 Respiratory rate 16 /min Celio Ledesmas [facility] Work Phone: 10-08-2020 10:53-0400 SaO2% (BldA) [Mass fraction] 98 % Celio Ledesmas [facility]: [facility] Work Phone: 10-08-2020 10:53-0400 Systolic blood pressure 112 mm[Hg] Celio Ledesmas Work Phone: [facility] Work Phone: 08-06-2020 09:25-0400 Body height 157.48 cm Celio Ledesmas [facility] Work Phone: 08-06-2020 09:25-0400 Body mass index (BMI) [Ratio] 43.53 kg/m2 Celio Ledesmas Work Phone: [facility] Work Phone: 08-06-2020 09:25-0400 Body surface area Derived from formula 2.06 m2 Celio Ledesmas [facility]: [facility] Work Phone: 08-06-2020 09:25-0400 Body temperature 97.2 [degF] Celio Zhou [facility] Work Phone: 08-06-2020 09:25-0400 Body weight 107.96 kg Celio Zhou [facility] Work Phone: 08-06-2020 09:25-0400 Diastolic blood pressure 80 mm[Hg] Celio Zhou [facility] Work Phone: 08-06-2020 09:25-0400 Heart rate 72 /min Celio Zhou [facility] Work Phone: 08-06-2020 09:25-0400 SaO2% (BldA) [Mass fraction] 100 % Celio Ledesmas [facility] Work Phone: 08-06-2020 09:25-0400 Systolic blood pressure 106 mm[Hg] Celio Nhi Jorgecraigs Work Phone: [facility] Work Phone: 07-10-2020 09:07-0400 Body height 157.48 cm Celio Ledesmas Work Phone: [facility] Work Phone: 07-10-2020 09:07-0400 Body mass index (BMI) [Ratio] 44.99 kg/m2 Celio Ledesmas Work Phone: [facility] Work Phone: 07-10-2020 09:07-0400 Body surface area Derived from formula 2.09 m2 Celio Ledesmas [facility] Work Phone: 07-10-2020 09:07-0400 Body temperature 97.2 [degF] Celio Led[facility]mas [facility]: [facility] Work Phone: 07-10-2020 09:07-0400 Body weight 111.59 kg Celio Ledesmas [facility] Work Phone: 07-10-2020 09:07-0400 Diastolic blood pressure 86 mm[Hg] Celio Ledesmas [facility] Work Phone: 07-10-2020 09:07-0400 Heart rate 93 /min Celio Ledesmas [facility]: [facility] Work Phone: 07-10-2020 09:07-0400 SaO2% (BldA) [Mass fraction] 98 % Celio Ledesmas [facility]: [facility] Work Phone: 07-10-2020 09:07-0400 Systolic blood pressure 108 mm[Hg] Celio Ledesmas [facility] Work Phone: 04-03-2020 12:48-0500 BMI (Body Mass Index) 47.92 kg/m2 Gera Flanagan EX-CQPZE-Hdybgu 320 Work Phone: 04-03-2020 12:48-0500 Body weight 118.84 kg Gera Flanagan ZH-MWPBG-Emmmjh 320 Work Phone: 04-03-2020 12:48-0500 BSA (Body Surface Area) 2.14 m2 Gera Flanagan GI-QAFJL-Qfvzvh 320 Work Phone: 04-03-2020 12:48-0500 Height 157.48 cm Gera Flanagan VF-FEAKU-Aulvqt 320 Work Phone: 04-03-2020 12:48-0500 0 1 Gera Flanagan OI-DLPCQ-Biogvx 320 Work Phone: Comment on above: Para Pain Scale 01-26-2020 17:04-0500 BMI (Body Mass Index) 47.98 kg/m2 Mishel Weinerman MH-ZSURT-Gibyrb 310 IVF Work Phone: 01-26-2020 17:04-0500 Body weight 118.98 kg Mishel Weinerman FZ-YJEUL-Rgpomr 310 IVF Work Phone: 01-26-2020 17:04-0500 BSA (Body Surface Area) 2.15 m2 Mishel Weinerman ZB-VCZNV-Limwco 310 IVF Work Phone: 01-26-2020 17:04-0500 Height 157.48 cm Mishel Weinerman BH-DJYRM-Eoegjt 310 IVF Work Phone: 01-26-2020 17:04-0500 0 1 Mishel Weinerman UL-WEETO-Bycwpa 310 IVF Work Phone: Comment on above: Pain Scale Para 01-22-2020 11:58-0500 BP Diastolic 86 mm[Hg] Mishel Weinerman GC-SEFHP-Ocbxld 310 IVF Work Phone: 01-22-2020 11:58-0500 BP Systolic 132 mm[Hg] Mishel Cartagena LN-LEAJJ-Vdvcyy 310 IVF Work Phone: 01-22-2020 11:33-0500 BMI (Body Mass Index) 48.35 kg/m2 Mishel Cartagena LK-CGAYX-Vmhqqh 310 IVF Work Phone: 01-22-2020 11:33-0500 Body Temperature 98.6 [degF] Mishel Cartagena CX-ZPEZZ-Wolzp n 310 IVF Work Phone: 01-22-2020 11:33-0500 Body weight 119.92 kg Mishel Cartagena ZG-DTXWU-Zkojcm 310 IVF Work Phone: 01-22-2020 11:33-0500 BP Diastolic 100 mm[Hg] Mishel Foxerman GJ-AKHTB-Qamiid 310 IVF Work Phone: 01-22-2020 11:33-0500 BP Systolic 124 mm[Hg] Mishel Cartagena PB-MQPJF-Dbfyfr 310 IVF Work Phone: 01-22-2020 11:33-0500 BSA (Body Surface Area) 2.15 m2 Mishel Cartagena MJ-RMCYL-Giosun 310 IVF Work Phone: 01-22-2020 11:33-0500 Height 157.48 cm Mishel Cartagena KW-UXVZF-Rqvhko 310 IVF Work Phone: 01-22-2020 11:33-0500 Pulse (Heart Rate) 74 /min Mishel Cartagena HW-JRAZS-Rnm man 310 IVF Work Phone: 01-22-2020 11:33-0500 Pulse Oximetry 99 % Mishel Cartagena AV-DLWIT-Pmffsl 310 IVF Work Phone: 1988 01:00-0400 >na< Mike Nicholson Dept. 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 Encounters Encounter Date Encounter Type Care Provider Facility Start: 12-28-2024 [facility] Facility: [facility] Start: 12-21-2024 ambulatory [facility] Facility: [facility] Start: 12-21-2024 ambulatory [facility] Facility: [facility] Start: 12-14-2024 ambulatory [facility] Facility: [facility] Start: 12-13-2024 End: 12-13-[address] Juide Bella MD Work Phone: -[facility] Start: 12-13-2024 End: 12-13-[address] Tawana Timmons MD -[facility] Work Phone: Start: 12-13-2024 End: 12-13-[address] Tawana Timmons MD -[facility] Work Phone: Start: 12-13-2024 End: 12-13-[address] Judie Bella MD Work Phone: [facility] Start: 12-08-2024 End: 12-08-[address] Anh Song DO -[facility] Work Phone: Start: 12-08-2024 End: 12-08-[address] Judie Bella MD Work Phone: [facility] Start: 11-30-2024 End: 11-30-[address] Judie Bella MD Work Phone: [facility] Start: 11-30-2024 End: 11-30-2024 Patient encounter procedure Ade TINSLEY -[facility] Work Phone: Start: 11-30-2024 End: 11-30-2024 ambulatory Judie Bella Facility:[facility] Start: 11-23-2024 End: 11-23-[address] Tawana Timmons MD -[facility] Work Phone: Start: 11-23-2024 End: 11-23-[address] Judie Bella MD Work Phone: -[facility] Start: 11-20-2024 End: 11-20-[address] Judie Bella MD Work Phone: -Ultrasound [facility] Start: 11-20-2024 End: 11-20-2024 Patient encounter procedure Carmen SHAY -Ultrasound [facility] Work Phone: Start: 11-20-2024 End: 11-20-2024 ambulatory Judie Mied Facility:[facility] Start: 11-10-2024 End: 11-10-[address] Tawana Timmons MD Work Phone: -Laboratory Start: 11-10-2024 End: 11-10-2024 Patient encounter procedure Carmen SHAYM -Laboratory Work Phone: Start: 11-10-2024 End: 11-10-2024 ambulatory Judie Churchilledsunil Facility:[facility] Start: 10-30-2024 End: 10-30-[address] Tawana Timmons MD Work Phone: -[facility] Start: 10-30-2024 End: 10-30-2024 Patient encounter procedure Carmen Perdomo CNM -[facility] Work Phone: Start: 10-30-2024 End: 10-30-2024 ambulatory [facility] Facility:[facility] Start: 10-02-2024 End: 10-02-2024 Patient encounter procedure Carmen Perdomo CNM -[facility] Work Phone: Start: 10-02-2024 End: 10-02-2024 ambulatory Carmen Perdomo CNM Work Phone: -[facility] Start: 09-12-2024 End: 09-12-2024 [facility] [place] [facility] Start: 09-01-2024 End: 09-01-[address] Anh Song DO -[facility] Work Phone: Start: 09-01-2024 End: 09-01-2024 ambulatory Carmen Perdomo CNM Work Phone: -[facility] Start: 08-31-2024 End: 08-31-2024 ambulatory MD MAZARIEGOS [facility] Start: 08-02-2024 End: 08-02-[address] Anh Song DO -[facility] Work Phone: Start: 08-02-2024 End: 08-02-2024 ambulatory Carmen SHAYM Work Phone: [facility] Work Phone: Start: 08-02-2024 End: 08-02-2024 ambulatory [facility] Facility:[facility] Start: 07-21-2024 End: 07-21-2024 Non-patient / Non-visit Dr. Arnulfo Gilmore MD -[facility] Work Phone: Start: 07-21-2024 End: 07-21-2024 ambulatory Carmen SHAYM Work Phone: [facility] Work Phone: Start: 07-21-2024 End: 07-21-[address] Tawana Timmons MD -Pulmonary Services/Neurology Work Phone: Start: 07-21-2024 End: 07-21-2024 ambulatory [facility] Facility:[facility] Start: 07-06-2024 End: 07-06-[address] Tawana Timmons MD -[facility] Work Phone: Start: 07-06-2024 End: 07-06-2024 ambulatory Carmen SHAYM Work Phone: [facility] Work Phone: Start: 07-06-2024 End: 07-06-2024 ambulatory Tawana Timmons Facility:[facility] Start: 06-09-2024 End: 06-09-2024 ambulatory Carmen Perdomo CNSocorro Work Phone: [facility] Work Phone: Start: 06-09-2024 End: 06-09-2024 Patient encounter procedure Camren Perdomo CNM -Laboratory, Specimen Work Phone: Start: 06-09-2024 End: 06-09-2024 Patient encounter procedure Carmen Perdomo CNM -[facility] Work Phone: Start: 06-09-2024 End: 06-09-2024 ambulatory Carmen Perdomo Facility:[facility] Start: 06-09-2024 End: 06-09-2024 ambulatory Carmen Perdomo Facility:[facility] Start: 05-26-2024 Non-patient / Non-visit Andressa walker RN -[facility] Work Phone: Start: 05-26-2024 ambulatory Andressa Schmitz Facility :[facility] Start: 05-03-2024 End: 05-03-2024 ambulatory Carmen Perdomo CNM Work Phone: [facility] Work Phone: Start: 05-03-2024 End: 05-03-2024 Patient encounter procedure Carmen Perdomo CNM -Laboratory, Specimen Work Phone: Start: 05-03-2024 Encounter for gynecological examination (general) (routine) without abnormal findings Carmen Perdomo [facility] Start: 05-03-2024 End: 05-03-2024 Patient encounter procedure Carmen Perdomo CNM -[facility] @ Start: 05-03-2024 End: 05-03-2024 Patient encounter status Carmen Perdomo CNM [facility] Start: 05-03-2024 End: 05-03-2024 ambulatory Carmen Perdomo Facility:[facility] Start: 05-03-2024 End: 05-03-2024 ambulatory Carmen Perdomo Facility:[facility] Start: 08-05-2023 End: 08-05-2023 Emergency department patient visit JOSEPH DEL CID DO [facility] Start: 07-22-2023 End: 07-22-2023 ambulatory [facility] Start: 07-15-2022 End: 07-16-2022 ambulatory [facility] Start: 07-15-2022 End: 07-16-2022 Encounter for general adult medical examination without abnormal findings [facility] Start: 02-27-2022 ambulatory Ms. Tom Naranjo ie PetrAgus Facility:[id number] Start: 02-27-2022 Phys/qhp telephone evaluation 11-20 min Celio Zhou Work Phone: RO-[id number]-Odjnzkjy 2420 DO Work Phone: Start: 02-24-2022 Patient encounter procedure Celio Zhou Work Phone: CL-Aefaniyctm-Ygdtamt 1200 DO Work Phone: Start: 02-13-2022 Telephone encounter Celio flannery Work Phone: [id number] 1200 [place] Work Phone: Start: 02-04-2022 Patient encounter procedure Celio Zhou Work Phone: SI-FURLS-Znhuzrcl 2420 DO Work Phone: Start: 02-04-2022 ambulatory Ms. Tom Naranjo ie Petr-Banak Facility:[id number] Start: 01-19-2022 ambulatory CELIO LEDESMAS Facility :[facility] Start: 01-19-2022 Encounter for examination of blood pressure without abnormal findings Suki You [facility] Start: 01-19-2022 Chart Update Celio Ledesmas Work Phone: [id number] 1200 [place] Work Phone: Start: 01-15-2022 ambulatory CELIO LEDESMAS Facility :[id number] Start: 01-15-2022 Chart Update Celio Ledesmas Work Phone: VY-VMMFE-Dfowtgb 2nd Fl Work Phone: Start: 01-11-2022 End: 01-11-2022 ambulatory [facility] Work Phone: Start: 01-11-2022 End: 01-11-2022 Patient encounter procedure [facility] Start: 01-07-2022 Instructor Flying Encounter Celio Zhou Work Phone: OH-VUUHE-Gfkqlx [address] [facility] Work Phone: Start: 01-04-2022 End: 01-07-2022 Evaluation and management of inpatient Sarina Hall [facility] Rodriguez 3 Rm [id number] Start: 12-31-2021 Office outpatient vi sit 15 minutes Celio Ledesmas Work Phone: [id number] 1200 [place] Work Phone: Start: 12-31-2021 ambulatory Ms. Tom Naranjo ie Debra Facility:[id number] Start: 12-24-2021 Office outpatient vi sit 15 minutes Celio Ledesmas Work Phone: ER-IVGUH-Ypmsjmiz 2420 DO Work Phone: Start: 12-24-2021 ambulatory CELIO ZHOU Facility :[id number] Start: 12-23-2021 End: 12-23-2021 ambulatory Unavailable Patient Facility:[facility] Start: 12-22-2021 ambulatory Ms. Tom Naranjo ie Debra Facility:[facility] Romeo [place] Start: 12-17-2021 Office outpatient vi sit 15 minutes Celio Ledesmas Work Phone: [id number] 1200 [place] Work Phone: Start: 12-17-2021 ambulatory Ms. Tom Naranjo ie Petr-Petros Facility:[id number] Start: 12-15-2021 Chart Update Celio Ledesmas Work Phone: [id number] 1200 [place] Work Phone: Start: 12-15-2021 ambulatory Ms. Tom Naranjo ie Debra Facility:[facility] Rogerszuleyma [place] Start: 12-12-2021 End: 12-12-2021 ambulatory Unavailable Patient Facility:[facility] Start: 12-12-2021 Office outpatient vi sit 15 minutes Celio Ledesmas Work Phone: [id number] 1200 [place] Work Phone: Start: 12-12-2021 ambulatory CELIO ZHOU Facility :[id number] Start: 11-13-2021 Patient encounter procedure Celio Jorgeolas Work Phone: RF-QDIGK-Jpfmepgx 2420 DO Work Phone: Start: 11-13-2021 ambulatory Dariela Urvashi ni [facility] Facility:9459 Start: 11-06-2021 ambulatory Ms. Tom Naranjo ie Petr-Banak Facility[facility] [place] Start: 11-06-2021 Rx Renewal Celio Hankins Escolas [facility] Phone: Start: 10-30-2021 Office outpatient vi sit 15 minutes Celio Ledesmas Work Phone: [id number]-[id number]-Qaaowriu 2420 DO Work Phone: Start: 10-30-2021 ambulatory Suki Callahan lity:[id number] Start: 10-08-2021 Chart Update Celio Jorgeolas Work Phone: [id number]-Qxydeibd 2420 DO Work Phone: Start: 10-03-2021 ambulatory Ms. Tom Naranjo ie Debra Facility:9459 Start: 10-03-2021 Office outpatient vi sit 15 minutes Celio Jorgeolas Work Phone: [id number] 1200 [place] Work Phone: Start: 09-11-2021 ambulatory Dariela Landin last [facility] Facility:9459 Start: 07-07-2022 Patient encounter procedure Celio Hankins Escolas Work Phone: JQ-UVMER-Nydrvkwf 2420 DO Work Phone: Start: 09-05-2021 Chart Update Celio Hankins Escolas Work Phone: [id number]-GHBQZ-Iasspwdn 2420 DO Work Phone: Start: 08-29-2021 ambulatory Ms. Tom Naranjo ie PetrPetros Facility:[facility] [place] Start: 08-07-2021 ambulatory Dariela Campuzano Facility:9459 Start: 08-07-2021 Office outpatient vi sit 15 minutes Celio Jorgeolas Work Phone: [id number]-FJLRC-Fzwptqwg 2420 DO Work Phone: Start: 07-11-2021 ambulatory Ms. Tom Naranjo ie PetrPetros Facility:9459 Start: 07-11-2021 Office outpatient vi sit 15 minutes Celio Jorgeolas Work Phone: YR-HVZKH-Ypcpszdl 2420 DO Work Phone: Start: 07-01-2021 Chart Update Celio Hankins Escolas Work Phone: [id number]-[id number] 1200 [place] Work Phone: Start: 06-30-2021 ambulatory CELIO ZHOU Facility :[facility] Romeo [place] Start: 06-24-2021 Chart Update Celio Hankins Escolas Work Phone: [id number] 1200 [place] Work Phone: Start: 06-16-2021 AUDIT Celio Hankins Escolas Work Phone: SC-Wmuysmmt-Gijvaizj Crocker Work Phone: Start: 06-13-2021 Office outpatient ne w 45 minutes Celio Hankins Escolas Work Phone: [id number]-OLAVF-Xanyafkm 2420 DO Work Phone: Start: 06-13-2021 ambulatory Ms. Tom Naranjo ie Petr-Banak Facility:9459 Start: 06-13-2021 ambulatory Ms. Tom Naranjo ie Petr-Banak Facility:[facility] Start: 06-13-2021 ambulatory CELIO LEDESMAS Facility :[facility] Start: 06-04-2021 ULTRASDFNT, Provider : JERROD NYE, Status: Pen, Time: 3:30 PM Celio Jorgeolas Work Phone: zz DO NOT USE - [employer] Only Start: 06-04-2021 ambulatory CELIO Hankins ESCOLAS Facility :[facility] Romeo [place] Start: 06-03-2021 Image Encounter Celio Ledesmas Work Phone: zz DO NOT USE - [employer] Only Start: 06-03-2021 AUDIT Celio Jorgeolas Work Phone: [id number] 1200 [place] Work Phone: Start: 05-01-2021 Office outpatient vi sit 25 minutes Celio Ledesmas [facility]: [facility]: Start: 05-01-2021 ambulatory CELIO LEDESMAS Facility :[id number] Start: 04-08-2021 ambulatory CELIO LEDESMAS Facility :[id number] Start: 04-07-2021 End: 04-08-2021 Office outpatient new 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 Start: 04-07-2021 End: 04-08-2021 Office outpatient visit 15 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 Start: 02-05-2021 Rx Renewal Celio Ledesmas [facility]: Start: 01-29-2021 Rx Renewal Celio Jorgeolas [facility]: [facility]: Start: 12-10-2020 Office outpatient vi sit 15 minutes Celio Hankins Alinacelena Work Phone: [facility] Work Phone: Start: 10-08-2020 Office outpatient vi sit 25 minutes Celio Hankins Alinacelena Work Phone: [facility] Work Phone: Start: 10-08-2020 Patient encounter procedure Celio Hankins Alinacelena Work Phone: [facility] Work Phone: Start: 10-03-2020 AUDIT Celio Hankins Aniaalma delia Work Phone: -Reproductive Endocrinology-[facility] e 206 Work Phone: Start: 08-08-2020 Chart Update Celio Hankins Alinacelena Work Phone: -Ambulatory Infusion Center-[facility] 1600 DO Work Phone: Start: 08-06-2020 Office outpatient vi sit 15 minutes Celio Hankins Alinacelena Work Phone: [facility] Work Phone: Start: 04-03-2020 Patient encounter procedure Gera Panchito YI-IAJZX-Bjlvrr 320 Work Phone: Start: 03-14-2020 Patient encounter procedure Gera Panchito EK-KWFLO-Drcsxc 320 Work Phone: Start: 03-13-2020 Patient encounter procedure Gera Flanagan MP-TZYIR-Rbbjxt 310 IVF Work Phone: Start: 03-06-2020 Patient encounter procedure Gera Flanagan RU-RCJHE-Xlrbds 310 IVF Work Phone: Start: 02-15-2020 Patient encounter procedure Gera Flanagan HQ-QKDVT-Ymendc 310 IVF Work Phone: Start: 02-12-2020 Patient encounter procedure Gera Flanagan TP-OACUP-Pwsjcb 310 IVF Work Phone: Start: 01-26-2020 Patient encounter procedure Mishel Cartagena QG-BZRUZ-Fhayxz 310 IVF Work Phone: Start: 01-22-2020 Patient encounter procedure Mishel Cartagena DP-LRUXW-Gnngzs 310 IVF Work Phone: Start: 01-16-2020 Patient encounter procedure Mishel Cartagena QR-XSTKH-Vsbhoi 310 IVF Work Phone: Start: 12-15-2019 Patient encounter procedure Gera Flanagan DS-URBGQ-Irctvp 310 IVF Work Phone: Start: 09-18-2019 Patient encounter procedure Mishel Cartagena OP-IGQFK-Owhbpf 310 IVF Work Phone: Start: 04-07-2019 Patient encounter procedure Celio Zhou [facility] Work Phone: Start: 01-27-2019 Patient encounter procedure Celio Zhou -[facility] Work Phone: Start: 12-27-2018 Patient encounter procedure Celio Zhou MP[facility] Work Phone: End: 01-28-2019 Patient encounter procedure Celio Zhou Work Phone: -[facility] Work Phone: Procedures Date Procedure Procedure Detail [...] 07-06-2024 Hepatitis C antibody measurement Carmen Perdomo [facility] Work Phone: Comment on above: Reactive: Presumptiv e evidence of antibodies to HCV. Follow CDC recommendations for supplemental testing.Non-Reactive: Antibodies to HCV were not detected; does not exclude the possibility of exposure to HCVReactive Results are presumptive evidence of antibodies to HCV. Follow CDC recommendations for supplemental testing.Order confirmation testing: HCV Quant by PCR testing - HCVPCR #[id number] Non Reactive: < 0.8 Equivocal: >/= 0.8 to < 1.0 Reactive: >/= 1.0The [facility] requires that a reactive/equivocal HCV antibody result be sent out for confirmation. HCV Quant by PCR testing. Start: 07-06-2024 Procedure Carmen blount [facility] Work Phone: Start: 07-06-2024 Rubella IgG measurement Carmen Perdomo [facility] Work Phone: Comment on above: Antibody Result: Int erpretationNon-Reactive: Non- ImmuneReactive: ImmuneThe following results were obtained with the [employer] Rubella IgG assay. Results from assays of other manufacturers cannot be used interchangeably. Start: 07-06-2024 Serologic test for syphilis Carmen Perdomo [facility] Work Phone: Start: 06-09-2024 Urine culture Carmen lowery [facility] Work Phone: Start: 05-03-2024 Liquid based cervica l cytology screening Carmen Perdomo [facility] Work Phone: Comment on above: NEGATIVE FOR [...] Performed By: #### T +S #### [facility] [address] [place] [address] Start: 06-13-2021 Antibody screen Marielle Campuzano Comment on above: Performed By: #### T +S #### [facility] [address] [place] [id number] Start: 03-29-2020 Assay of estradiol Andrew dallas Panchito Start: 03-29-2020 Gonadotropin luteini zing hormone Gera Panchito Start: 03-04-2020 IO Ultrasound, limit ed pelvic, follicle monitoring Gera Flanagan Start: 02-02-2020 Assay of estradiol Courtney Cartagena Start: 02-02-2020 Gonadotropin luteini zing hormone Mishel Cartagena Cholecystectomy Celio Zhou Colposcopy Mishel [place] Plan of Treatment Date Care Activity Detail Author Start: 12-13-2024 Obstetric monitoring [facility] Start: 12-13-2024 Vital signs measurements [facility] Start: 12-13-2024 [facility] Start: 12-13-2024 Patient discharge [facility] Start: 12-08-2024 Biophysical pr ofile panel US [facility] Start: 12-08-2024 Ultrasonography for biophysical profile without non-stress testing OB Biophysical Prof W/O NST [facility] Start: 11-23-2024 [facility] Start: 10-30-2024 CBC W Auto Different ial panel - Blood [facility] [facility] Start: 10-30-2024 Measurement of gluco se 2 hours after glucose challenge for glucose tolerance test [facility] Start: 10-30-2024 Serologic test for syphilis [facility] Start: 10-30-2024 [facility] Start: 06-09-2024 Chlamydia deoxyribon ucleic acid detection [facility] Start: 03-24-2022 GABO, Provider : Michelle Ervin, Status: Pen, Time: 10:00 AM GABO, Provider: Michelle Ervin, Status: Pen, Time: 10:00 AM XW-SYFFY-Sidmrhio 2420 DO Work Phone: Start: 02-24-2022 VIRNPVHOME, Provider : Michelle Ervin, Status: Pen, Time: 12:30 PM VIRNPVHOME, Provider: Michelle Ervin, Status: Pen, Time: 12:30 PM XJ-YMOYT-TPR 1200 [place] Work Phone: Start: 02-04-2022 Patient encounter procedure SUPERVISOR MIXING Nurse Mid Start: 02-04-2022 PPV, Provider: Tom Bull, Status: Pen, Time: 2:30 PM PPV, Provider: Sophia Bull, Status: Pen, Time: 2:30 PM XS-DNWLO-Bqnnbw [address] [facility] Work Phone: Start: 01-19-2022 PPV, Provider: Suki You, Status: Pen, Time: 1:30 PM PPV, Provider: Suki You, Status: Pen, Time: 1:30 PM PF-YNDPX-Lsooxsz 2nd Fl Work Phone: Start: 01-15-2022 Patient encounter procedure SUPERVISOR MIXING Rogers Start: 01-15-2022 PPV, Provider: Suki You, Status: Pen, Time: 2:30 PM PPV, Provider: Suki You, Status: Pen, Time: 2:30 PM HV-YOUNY-Xjmxzk [address] [facility] Work Phone: Start: 01-11-2022 Patient discharge [facility] Work Phone: Start: 01-09-2022 EPVOB, Provider: Dariela Campuzano, Status: Pen, Time: 4:15 PM EPVOB, Provider: Dariela Campuzano , Status: Pen, Time: 4:15 PM HQ-FUHIZ-Wuvulntq 2420 DO Work Phone: Start: 01-09-2022 RNVISIT, Provider: O B NURSES JERROD CARDONA, Status: Pen, Time: 3:45 PM RNVISIT, Provider: OB NURSES JERROD CARDONA, Status: Pen, Time: 3:45 PM XX-KTRCC-Bviyhxas 2420 DO Work Phone: Start: 01-05-2022 End: 01-05-2022 Placental Record [Baby A] Placental Record [Baby A] Date: 05-Jan-2022 [facility] Start: 01-05-2022 End: 01-06-2023 [facility] Comment on above: Consult provider jose or [...] Consult Provider prior to administration. Start: 01-04-2022 [facility], Provider: Jagjit Boles, Status: Pen, Time: 8:00 AM [facility]: Jagjit Boles, Status: Pen, Time: 8:00 AM CO-BQRUP-Alvmmifn 2420 DO Work Phone: Start: 01-02-2022 EPVOB, Provider: Tom Bull, Status: Pen, Time: 4:15 PM EPVOB, Provider: Sophia Bull, Status: Pen, Time: 4:15 PM AB-TDAUP-Zdvlojle 2420 DO Work Phone: Start: 01-02-2022 RNVISIT, Provider: O B NURSES ROMEOMGOBGYN, Status: Pen, Time: 3:45 PM RNVISIT, Provider: OB NURSES ROMEOMGOBОЛЬГАN, Status: Pen, Time: 3:45 PM MN-YLYVG-Rrowlmsi 2420 DO Work Phone: Start: 12-31-2021 EPVOB, Provider: Tom Bull, Status: Pen, Time: 2:45 PM EPVOB, Provider: Sophia Bull, Status: Pen, Time: 2:45 PM MP-YTEEZ-Srvjsknm 2420 DO Work Phone: Start: 12-31-2021 RNVISIT, Provider: O B NURSES MG ROMEOOBОЛЬГАN, Status: Pen, Time: 2:15 PM RNVISIT, Provider: OB NURSES ROMEOMGOBRILEY, Status: Pen, Time: 2:15 PM HN-BQNTK-Ttbtwzdg 2420 DO Work Phone: Start: 12-24-2021 EPVOB, Provider: Tom Bull, Status: Pen, Time: 3:30 PM EPVOB, Provider: Sophia Bull, Status: Pen, Time: 3:30 PM PM-PVLOV-Kvuqsjgx 2420 DO Work Phone: Start: 12-24-2021 RNVISIT, Provider: O B NURSES ROMEOMGOBGYN, Status: Pen, Time: 3:00 PM RNVISIT, Provider: OB NURSES ROMEOMGOBGYN, Status: Pen, Time: 3:00 PM QZ-VVKNH-Joznxaie 2420 DO Work Phone: Start: 12-18-2021 EPVOB, Provider: Dariela Campuzano, Status: Pen, Time: 2:45 PM EPVOB, Provider: Dariela Campuzano , Status: Pen, Time: 2:45 PM DA-BIGAS-Ereerswl 2420 DO Work Phone: Start: 12-18-2021 RNVISIT, Provider: O B NURSES ROMEOMGOBGYN, Status: Pen, Time: 2:15 PM RNVISIT, Provider: OB NURSES ROMEOMGOBGYN, Status: Pen, Time: 2:15 PM AU-FPCPF-Quxmjuyz 2420 DO Work Phone: Start: 12-15-2021 ULTRASDFUV, Provider : OB PARK3MGOBGYN, Status: Pen, Time: 3:30 PM ULTRASDFUV, Provider: OB PARK3,MGOBGYN, Status: Pen, Time: 3:30 PM CK-TYVON-Jbffdvea 2420 DO Work Phone: Start: 12-12-2021 EPVOB, Provider: Dariela Campuzano, Status: Pen, Time: 4:15 PM EPVOB, Provider: Dariela Campuzano , Status: Pen, Time: 4:15 PM ZJ-KAPIG-Fgijafim 2420 DO Work Phone: Start: 12-12-2021 EPVOB, Provider: Tom Bull, Status: Pen, Time: 4:00 PM EPVOB, Provider: Sophia Bull, Status: Pen, Time: 4:00 PM BY-SDXPG-XON 1200 [place] Work Phone: Start: 12-12-2021 RNVISIT, Provider: O B NURSES ROMEO,MGOBGYN, Status: Pen, Time: 3:30 PM RNVISIT, Provider: OB NURSES ROMEOMGOBGYN, Status: Pen, Time: 3:30 PM SL-UDBFP-Xnubjsdu 2420 DO Work Phone: Start: 11-28-2021 EPVOB, Provider: Tom Bull, Status: Pen, Time: 4:00 PM EPVOB, Provider: Sophia Bull, Status: Pen, Time: 4:00 PM RD-KPSBH-Gusibimk 2420 DO Work Phone: Start: 11-13-2021 EPVOB, Provider: Dariela Campuzano, Status: Pen, Time: 2:30 PM EPVOB, Provider: Dariela Campuzano , Status: Pen, Time: 2:30 PM CJ-LWXJO-Dqqiofic 2420 DO Work Phone: Start: 11-06-2021 ULTRASDFUV, Provider : LELAND HARPER 1,MGOBGYN, Status: Pen, Time: 3:30 PM ULTRASDFUV, Provider: LELAND HARPER 1,MGOBGYN, Status: Pen, Time: 3:30 PM NU-ROJIL-Ylgdwiig 2420 DO Work Phone: Start: 10-31-2021 EPVOB, Provider: Tom Bull, Status: Pen, Time: 4:15 PM EPVOB, Provider: Sophia Bull, Status: Pen, Time: 4:15 PM CF-MGEDM-Ooatwgmz 2420 DO Work Phone: Start: 10-31-2021 ULTRASDFUV, Provider : LELAND HARPER 1,MGOBGYN, Status: Pen, Time: 1:15 PM ULTRASDFUV, Provider: LELAND HARPER 1,MGOBGYN, Status: Pen, Time: 1:15 PM CT-QNSQP-Irbdffpb 2420 DO Work Phone: Start: 10-30-2021 ULTRASDFUV, Provider : LELAND HARPER 2,MGOBGYN, Status: Pen, Time: 3:00 PM ULTRASDFUV, Provider: LELAND HARPER 2,MGOBGYN, Status: Pen, Time: 3:00 PM PT-QCVBY-OKN 1200 [place] Work Phone: Start: 10-30-2021 EPVOB, Provider: Suki You, Status: Pen, Time: 11:45 AM EPVOB, Provider: Suki You, Status: Pen, Time: 11:45 AM KB-WVNHP-FTJ 1200 [place] Work Phone: Start: 10-03-2021 EPVOB, Provider: Tom Bull, Status: Pen, Time: 4:15 PM EPVOB, Provider: Sophia Bull, Status: Pen, Time: 4:15 PM LE-WCDNV-Muvpipuh 2420 DO Work Phone: Start: 09-11-2021 EPVOB, Provider: Dariela Campuzano, Status: Pen, Time: 10:45 AM EPVOB, Provider: Dariela Campuzano , Status: Pen, Time: 10:45 AM KK-MBPAQ-Rrnehpbb 2420 DO Work Phone: Start: 09-05-2021 EPVOB, Provider: Tom Bull, Status: Pen, Time: 4:15 PM EPVOB, Provider: Sophia Bull, Status: Pen, Time: 4:15 PM UF-KVXXZ-Qsjvtujn 2420 DO Work Phone: Start: 08-29-2021 ULTRASDANT, Provider : LELAND HARPER 1,MGOBGYN, Status: Pen, Time: 2:00 PM ULTRASDANT, Provider: LELAND HARPER 1,MGOBGYN, Status: Pen, Time: 2:00 PM EL-MJKKS-Shkrhqsd 2420 DO Work Phone: Start: 08-07-2021 EPVOB, Provider: Dariela Campuzano, Status: Pen, Time: 11:00 AM EPVOB, Provider: Dariela Campuzano , Status: Pen, Time: 11:00 AM HB-BXYZL-Nufzkzre 2420 DO Work Phone: Start: 07-11-2021 EPVOB, Provider: Tom Bull, Status: Pen, Time: 4:00 PM EPVOB, Provider: Sophia Bull, Status: Pen, Time: 4:00 PM QA-RXZJN-Eqmauylj 2420 DO Work Phone: Start: 06-30-2021 ULTRASDFNT, Provider : LELAND HARPER 2,MGOBОЛЬГАN, Status: Pen, Time: 3:45 PM ULTRASDFNT, Provider: LELAND HARPER 2,MGOBGYN, Status: Pen, Time: 3:45 PM GF-THBKL-XVG 1200 [place] Work Phone: Start: 06-13-2021 NPVOBINTL, Provider: Tom Bull, Status: Pen, Time: 11:30 AM NPVOBINTL, Provider: Sophia Bull, Status: Pen, Time: 11:30 AM zz DO NOT USE - [facility] Only Start: 05-23-2021 NPVOBINTL, Provider: Dariela Campuzano, Status: Pen, Time: 3:30 PM NPVOBINTL, Provider: Dariela Campuzano , Status: Pen, Time: 3:30 PM [facility] Work Phone: CBC W Auto Different ial panel - Blood [facility] CBC W Auto Different ial panel - Blood [facility] Comprehensive metabo lic 2000 panel - Serum or Plasma [facility] Electrocardiographic procedure [facility] Erythrocyte mean cor puscular volume determination [facility] Biophysical pr ofile panel US [facility] Hematocrit [Volume F raction] of Blood [facility] Hemoglobin [Mass/vol ume] in Blood [facility] Hemoglobin A1c/Hemoglobin.total in Blood [facility] Hepatitis C antibody measurement [facility] Leukocytes [#/volume ] in Blood [facility] Mean corpuscular hem oglobin concentration determination [facility] Mean corpuscular hem oglobin determination [facility] Measurement of gluco se 2 hours after glucose challenge for glucose tolerance test [facility] Neisseria gonorrhoea e rRNA [Presence] in Unspecified specimen by MCKENZIE with probe detection [facility] Neutrophil count [facility] Neutrophil percent differential count [facility] Patient Education Kick Counts ED False Labor OB Triage: Return to Hospital or Notify Physician if you Experience: [facility] Work Phone: Patient referral [facility] Work Phone: PCR test for Chlamyd ia trachomatis [facility] Platelets [#/volume] in Blood [facility] Protein/Creatinine [ Ratio] in Urine [facility] Red blood cell count [facility] Red cell distributio n width determination [facility] Rubella IgG measurement [place] Serologic test for syphilis [facility] Serologic test for syphilis [facility] Ultrasound scan for growth [facility] Ultrasound scan for growth [facility] FI-HAFVU-Syfoji 310 IVF Work Phone: [facility] NEGATED: Highlighted row has been ruled out! Planned Goals not documented AI-KGWMY-Jlhmfp 310 IVF Work Phone: Immunizations Immunization Date Immunization Notes Care Provider Fa ajimie 11-23-2024 tetanus toxoid, redu sussy diphtheria toxoid, and acellular pertussis vaccine, adsorbed Dr. Judie Bella MD Work Phone: [facility] 02-06-2022 Pfizer COVID-19 Vac Bivalent 30 MCG/0.3ML Intramuscular Suspension Celio Zhou Work Phone: CY-Fwkquvodgb-Frpglm l 1200 DO Work Phone: 01-07-2022 measles, mumps and rubella virus vaccine Celio Zhou Work Phone: ER-DNEFG-Dgnbfig 2nd Fl Work Phone: 11-13-2021 tetanus toxoid, redu sussy diphtheria toxoid, and acellular pertussis vaccine, adsorbed; Translations: [Tdap (Boostrix)] Celio Zhou Work Phone: OR-BGJKG-Dqejybwz 2420 DO Work Phone: Comment on above: Series: 01-24-2021 Pfizer-BioNTech COVID-19 Vacc 30 MCG/0.3ML Intramuscular Suspension Celio Zhou Work Phone: [facility] Work Phone: 04-04-2020 Moderna COVID-19 Vaccine 100 MCG/0.5ML Intramuscular Suspension Celio Zhou Work Phone: [facility] Work Phone: 03-06-2020 Moderna COVID-19 Vaccine 100 MCG/0.5ML Intramuscular Suspension Celio Zhou Work Phone: [facility] Work Phone: 12-10-2016 influenza, seasonal, injectable Celio Zhou Work Phone: [facility] Work Phone: 04-03-2002 hepatitis B vaccine, pediatric or pediatric/adolescent dosage Celio Zhou Work Phone: [facility] Work Phone: 10-31-2001 hepatitis B vaccine, pediatric or pediatric/adolescent dosage Celio Zhou Work Phone: [facility] Work Phone: 09-28-2001 hepatitis B vaccine, pediatric or pediatric/adolescent dosage Celio Zhou Work Phone: [facility] Work Phone: 06-29-1990 diphtheria, tetanus toxoids and acellular pertussis vaccine, unspecified formulation Celio Zhou Work Phone: [facility] Work Phone: 06-29-1990 trivalent poliovirus vaccine, live, oral Celio Zhou Work Phone: [facility] Work Phone: 03-30-1990 haemophilus influenz ae type b vaccine, conjugate unspecified formulation Celio Ledesmas Work Phone: [facility] Work Phone: 03-30-1990 measles, mumps and rubella virus vaccine Celio Ledesmas Work Phone: [facility] Work Phone: 07-07-1989 diphtheria, tetanus toxoids and pertussis vaccine Celio Nhi Ledesmas Work Phone: [facility] Work Phone: 05-12-1989 diphtheria, tetanus toxoids and pertussis vaccine Celio Jorgeolas Work Phone: [facility] Work Phone: 05-12-1989 trivalent poliovirus vaccine, live, oral [facility] Work Phone: [facility] Work Phone: 03-10-1989 diphtheria, tetanus toxoids and pertussis vaccine Celio Jorgeolas Work Phone: [facility] Work Phone: 03-10-1989 trivalent poliovirus vaccine, live, oral [facility] Work Phone: [facility] Work Phone: 1990 pneumococcal conjuga te vaccine, [address] [facility] Dept[facility] 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 influenza virus vaccine, unspecified formulation Mishel Cartagena UG-ZUCUM-Zzhwzl 310 IVF Work Phone: Comment on above: Approx [id number] Approx [id number] Ser ies: Payers Date Payer Category Payer Self-pay 2023 Unknown [id number] 2022 Unknown [id number] 2021 Unknown [id number] 1988 Unknown [id number] 2.16. 840.1.778038.3.579.2.356 1988 Unknown [id number] 2.. 840.1.762414.3.579.2.356 1988 Unknown [id number] 2. 840.1.926090.3.579.2.356 1988 Unknown [id number] 2. 840.1.347347.3.579.2.356 1988 Unknown [id number] 2. 840.1.312325.3.579.2.356 1988 Unknown [id number] 2. 840.1.988259.3.579.2.356 1988 Unknown [id number] 2. 840.1.994508.3.579.2.356 1988 Unknown [id number] 2.0.1.242346.3.579.2.356 1988 Unknown [id number] 2.0.1.204097.3.579.2.356 1988 Unknown [id number] 2. 840.1.006031.3.579.2.356 1988 Unknown [id number] 2. 840.1.039063.3.579.2.356 1988 Unknown [id number] 2.0.1.126918.3.579.2.356 1988 Unknown [id number] 2. 840.1.154680.3.579.2.356 1988 Unknown [id number] 2 840.1.033521.3.579.2.356 1988 Unknown [id number] 2. 840.1.832688.3.579.2.356 1988 Unknown [id number] 2 840.1.724879.3.579.2.356 1988 Unknown [id number] 2. 840.1.612602.3.579.2.356 1988 Unknown [id number] 2. 840.1.695093.3.579.2.356 1988 Unknown [id number] 2.16. 840.1.400340.3.579.2.356 1988 Unknown [id number] 2.16. 840.1.848387.3.579.2.356 1988 Unknown [id number] 2.16. 840.1.486016.3.579.2.356 1988 Unknown [id number] 2.16. 840.1.151088.3.579.2.356 1988 Unknown [id number] 2.16. 840.1.639387.3.579.2.356 1988 Unknown [id number] 2.16. 840.1.840721.3.579.2.356 1988 Unknown [id number] 2.16. 840.1.983705.3.579.2.356 1988 Unknown [id number] 2.16 840.1.403604.3.579.2.356 1988 Unknown [id number] 2.16 840.1.089671.3.579.2.356 1988 Unknown [id number] 2.16 840.1.431499.3.579.2.356 1988 Unknown [id number] 2.16.840 .1.084421.3.579.2.1245 1988 Unknown [id number] 2.16.8 40.1.578534.3.579.2.627 1988 Unknown [id number] 2.16.8 40.1.991918.3.579.2.1244 1988 Unknown [id number] 2.16. 840.1.466270.3.579.2.479 1988 Unknown [id number] 2.16 840.1.038651.3.579.2.479 Unknown Unknown [id number] Unknown [id number] 2.16.8 40.1.478386.3.579.2.462 Unknown [id number] 2.16.8 40.1.796650.3.579.2.462 Unknown [id number] 2.16.8 40.1.202494.3.579.2.462 Unknown [id number] 2.16.8 40.1.884255.3.579.2.462 Unknown [id number] 2.16.8 40.1.648078.3.579.2.462 Unknown [id number] 2.16.8 40.1.105440.3.579.2.462 Unknown [id number] 2.16.8 40.1.181790.3.579.2.462 Unknown [id number] 2.16.8 40.1.133424.3.579.2.462 Unknown [id number] 2.16.8 40.1.242614.3.579.2.462 Unknown [id number] 2.16.8 40.1.661954.3.579.2.462 Unknown [id number] 2.16.8 40.1.384384.3.579.2.462 Unknown [id number] 2.16.8 40.1.351537.3.579.2.462 Unknown [id number] 2.16.8 40.1.598688.3.579.2.462 Unknown [id number] 2.16.8 40.1.489006.3.579.2.462 Unknown [id number] 2.16.8 40.1.758904.3.579.2.462 Unknown [id number] 2.16.8 40.1.391810.3.579.2.462 Unknown [id number] 2.16.8 40.1.452734.3.579.2.462 Unknown [id number] 2.16.8 40.1.962290.3.579.2.462 Unknown [id number] 2.16.8 40.1.889399.3.579.2.462 Unknown [id number] 2.16.8 40.1.320816.3.579.2.462 Unknown [id number] 2.16.8 40.1.029620.3.579.2.462 Unknown [id number] 2.16.8 40.1.856583.3.579.2.462 Unknown [id number] 2.16.8 40.1.752071.3.579.2.462 Unknown [id number] 2.16.8 40.1.435963.3.579.2.462 Unknown [id number] 2.16.8 40.1.292550.3.579.2.462 Unknown [id number] 2.16.8 40.1.181700.3.579.2.462 Unknown [id number] 2.16.8 40.1.791241.3.579.2.462 Unknown [id number] 2.16.8 40.1.500898.3.579.2.462 Unknown [id number] 2.16.8 40.1.158218.3.579.2.462 Social History Date Type Detail Facility Never smoker Never smoker [facility] Work Phone: 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 Start: 1990 Sex Assigned At Female A [facility] Tobacco smoking status No Smoking Status Entered [facility] Start: 05-03-2024 End: 05-26-2024 Tobacco smoking status NHIS Never smoked tobacco (finding) [facility] Start: 05-18-2024 End: 06-13-2024 Sex Female (finding) [facility] Sex Female [facility] NEGATED: Highlighted row - - [facility] Work Phone: Goals Date Patient Goal Desired Activity /State Functional Status Date Assessment Result Facility 08-05-2023 Functional Status Assistive Device None A [facility] 08-05-2023 Functional Status Environmental Safety Implemented Adequate room lighting, Bed in low position, Call device within reach [facility] 08-05-2023 Functional Status Standard Safet y ID band on, Call device within reach, Bed in low position, Wheels locked [facility] Functional observable [facility] NEGATED: Highlighted row Functional performance Functional status health issues are not documented Disease [facility] Work Phone: Mental Status Date Assessment Result Facility 08-05-2023 Mental Status Orientation Orie nted x 4 [facility] 08-05-2023 Mental Status [facility] 01-05-2022 Cognitive functi ons [id number] [facility] NEGATED: Highlighted row Cognitive function [Interpretation] Cognitive status health issues are not documented Disease [facility] Work Phone: Clinical Notes 04-30-2021 to 12-13-2024 Note Date & Type Note Facility 12-13-2024 Progress note [facility] 12-08-2024 Progress note [facility] 12-04-2024 Radiology Diagnostic study note [facility] Services [address] [place] [address] OB Biophysical Prof W/O NST MR#: [id number] Acct: [id number] Name: SHU GASPAR Rep #: [id number] : 1990 F 33 From: Derrick Mckinney MD PCP: Dr. Judie Bella MD Status: REG CLI Study:OB Biophysical Prof W/O NST Date of Exa m: 11/30/24 Exam# [id number] Ordering Dr: Carmen Perdomo CNM PROCEDURE: OB [...] AMIE Perdomo; Dr. Judie Bella MD ~ Sports Development Officer: Signed [facility] 11-30-2024 Progress note [facility] 11-23-2024 Progress note [facility] 11-21-2024 Radiology Diagnostic study note [facility] Imaging Services [address] [place] [address] OB Limited With Biometrics MR#: [id number] Acct: [id number] Name: SHU GASPAR Rep #: [id number] : 1990 F 33 From: Iron Reaves MD PCP: Dr. Judie Bella MD Status: REG CLI Study:OB Limited With Biometrics Date of Exam : 11/20/24 Exam# [id number] Ordering Dr: Carmen Perdomo CNM PROCEDURE: OB [...] of 33 weeks and 2days. Reading Location: [place] [address] CC: AMIE Perdomo; Dr. Judie Bella MD ~ Sports Development Officer: Signed [facility] 11-21-2024 Radiology Diagnostic study note [facility] Imaging Services [address] [place] [address] OB Biophysical Prof W/O NST MR#: [id number] Acct: [id number] Name: SHU GASPAR Rep #: [id number] : 1990 F 33 From: Iron Reaves MD PCP: Dr. Judie Bella MD Status: REG CLI Study:OB Biophysical Prof W/O NST Date of Exa m: 11/20/24 Exam# [id number] Ordering Dr: Carmen Perdomo CNM PROCEDURE: OB [...] biophysical profile score of 8/8. Reading Location: [place] [address] CC: AMIE Perdomo; Dr. Judie Bella MD ~ Sports Development Officer: Signed [facility] 10-30-2024 Progress note [facility] 10-30-2024 Progress note Note Date/Time October 30, 2024 2:14pm [facility] [address], [address] [place] [address] OFFICE VISIT Date of Service: 10/30/24 MR#: [id number] Acct: [id number] Name: SHU GASPAR Rep #: [id number] : 1990 Provider: AMIE Perdomo Age/Sex: 33/F Location: [facility] Status: Signed Intake Vital Signs 09/01/24 14:59 10/02/24 09:42 10/30/24 13:49 Height 5 ft 2 in 5 ft 2 in 5 ft 2 in Weight: 265 lb 6 oz 268 lb 5 oz BMI 48.5 49.1 BP 124/83 H 120/83 H Intake Visit Reasons: 28wk ob/glucose Histotechnician Required: No Is patient in pain?: No Allergies No Known Allergies Allergy (Verified 10/30/24 13:50) Medications ?Medication ?Instructions ?Recorded ?Confirmed ?Type pgeuqbqh-chw-Wf-FA 1 mg tab PO 01/11/2210/30 History tablet [...] between 32-34 weeks, deliver at 37-38 weeks.prefers stock speculator delivery if possible! JV- planning to stop metform in and do glucola at 26-28 weeks. continue baby asa and metoprolol. plan weekly testing @ 32 weeks, deliver at 37-38 weeks.prefers stock speculator delivery if possible! 09/01/24 -?-?-?-?-?-?-?-?-?-?-?-?- 20w 5d [...] and Symptoms of Preeclampsia, Feeding No , [place] Education and Family Medical Leave or Disability [...] [place] CNM> Date _ [facility] Signature: Date (if applicable) CC: ~ [facility] Work Phone: 1(314) 974-437207-28-2025 Progress [facility] [address] [place] [address], [address] [place] [address] OFFICE VISIT Date of Service: 10/02/24 MR#: [id number] Acct: [id number] Name: SHU GASPAR Rep #: [id number] : 1990 Provider: AMIE Perdomo Age/Sex: 33/F Location: [facility] Status: Signed Intake Vital Signs 07/06/24 15:06 09/01/24 14:59 10/02/24 09:42 Height 5 ft 2 in 5 ft 2 in 5 ft 2 in Weight: 265 lb 6 oz BMI 48.5 BP 124/83 H Intake Visit Reasons: 24 wk ob Chief Complaint: 24wk OB Histotechnician Required: No Is patient in pain?: No Allergies No Known Allergies Allergy (Verified 10/02/24 09:40) Medications 3 ?Medication ?Instructions ?Recorded ?Confirmed ?Type nkjdufuq-opw-Uh-FA 1 mg tab PO 01/11/2210/02 History tablet [...] Lgth Anesthesia Del Locatn Provider FOB 01/05/22 [place] 39 live - full term 7lbs 8oz [...] between 32-34 weeks, deliver at 37-38 weeks.prefers stock speculator delivery if possible! JV- planning to stop metform in and do glucola at 26-28 weeks. continue baby asa and metoprolol. plan weekly testing @ 32 weeks, deliver at 37-38 weeks.prefers stock speculator delivery if possible! 09/01/24 -?-?-?-?-?-?-?-?-?-?-?-?- 20w 5d [...] and Symptoms of Preeclampsia, Feeding No , [place] [employer] and Family Medical Leave or Disability [...] Cosigner Signature: Date (if applicable) CC: ~ [facility]06-27-2025 Evaluation note* Diagnosis Onset Date Resolution Status [...] 30, 2024 9:39am Hypertension chronic November 302024 9:39[facility] Work Phone: 1(589) 173-448306-27-2025 Evaluation note* Diagnosis Onset Date Resolution Status [...] 8:47am Hypertension chronic December 08, 2024 8:47am [facility] Work Phone: 1(442) 812-961106-27-2025 Evaluation note* Diagnosis Onset Date Resolution Status [...] 9:15am Hypertension chronic December 13, 2024 9:15am [facility] Work Phone: 1(524) 674-874205-28-2025 Evaluation note* Diagnosis Onset Date Resolution Status [...] 1:40pm Hypertension chronic October 30, 2024 1:40pm [facility] Work Phone: 1(275) 147-823205-28-2025 Evaluation note* Diagnosis Onset Date Resolution Status [...] 2024 9:16am Hypertension chronic November 232024 9:16am [facility] Work Phone: 1(221) 517-475105-28-2025 [facility] [address] [place] [address], [address] [place] [address] OFFICE VISIT Date of Service: 08/02/24 MR#: [id number] Acct: [id number] Name: SHU GASPAR Rep #: [id number] : 1990 Provider: Dr. Juana Song, DO Age/Sex: 33/F Location: [facility] Status: Signed Intake Vital Signs 06/09/24 13:11 07/06/24 15:06 08/02/24 11:02 08/02/24 11:04 Height 5 ft 2 in 5 ft 2 in 5 ft 2 in 5 ft 2 in Weight: 266 lb BMI 48.6 BP 118/75 Intake Visit Reasons: 16wk ob Histotechnician Required: No Is patient in pain?: No Allergies No Known Allergies Allergy (Verified 08/02/24 11:02) Medications ?Medication ?Instructions ?Recorded ?Confirmed ?Type seaahgqn-yku-Pr-FA 1 mg tab PO 01/11/2208/02 History tablet [...] Lgth Anesthesia Del Locatn Provider FOB 01/[birth year]/22 [place] 39 live - full term 7lbs 8oz [...] between 32-34 weeks, deliver at 37-38 weeks.prefers stock speculator delivery if possible! JV- planning to stop metform in and do glucola at 26-28 weeks. continue baby asa and metoprolol. plan weekly testing @ 32 weeks, deliver at 37-38 weeks.prefers stock speculator delivery if possible! ACOG First Trimester First [...] Brittany DO> Date _ Anh Song DO [facility] Signature: Date (if applicable) CC: ~ [facility]05-01-2025 Evaluation note* Diagnosis Onset Date Resolution [...] AMA (advanced maternal age) multigravida 35+ acute [place] 25th, 20 25 1:40pm Depression acute [place] 25th, 2 025 1:40pm Herpes simplex type 2 infection acut e October 30, 2024 1:40pm Obesity affecting acute October 30, 2024 1:40pm Polycystic disease, ovaries acute October 30, 2024 1:40pm acute October 30, 2 025 1:40pm Supervision of high-risk acute October 30 1:40pm Hypertension chronic October 30, 2024 1:40pm [facility] Work Phone: 1([phone]) 187-682404-04-2025 Evaluation note* Diagnosis Onset Date Resolution Status [...] Hypertension chronic September 01, 2 025 2:51pm [facility] Work Phone: 1(285) 768-832804-04-2025 Evaluation note* Diagnosis Onset Date Resolution Status [...] Hypertension chronic October 02, 2 025 9:38am [facility] Work Phone: 1([phone]) 280-890102-26-2025 NotePap Smear Specimen AdequacyFebruary 2024 5:33pmComment.Satisfactory for evaluation. Endocervical and/or squamous metaplasticcells (endocervical component)are present.[facility] INTER[facility]ACED A#[id number] District HospitalComment on above:Satisfactory for evaluation. Endocervical and/or squamous metaplasticcells (endocervical component)are present.05-03-2024 NotePap Smear Specimen AdequacyFebruary 2024 5:33pmComment.Satisfactory for evaluation. Endocervical and/or squamous metaplasticcells (endocervical component)are present.[facility] INTER[facility]ACED A#[id number] District HospitalComment on above:Satisfactory for evaluation. Endocervical and/or squamous metaplasticcells (endocervical component)are present.05-03-2024 Evaluation note* Diagnosis Onset Date Resolution Status Admit Date Encounter for routine gynecological examination noneactive Februa 2024 11:53am [facility] Work Phone: 1(631) 810-578902-26-2025 Evaluation note* Diagnosis Onset Date Resolution Status [...] Hypertension chronic June 09, 2 025 1:05pm [facility] Work Phone: 1(719) 110-160802-26-2025 Evaluation note* Diagnosis Onset Date Resolution Status [...] 2: 57pm Hypertension chronic July 06 2:57pm [facility] Work Phone: 1(232) 743-270602-26-2025 Evaluation note* Diagnosis Onset Date Resolution Status [...] 1 0:59am Hypertension chronic August 02 10:59am [facility] Work Phone: 1(771) 488-581905-31-2024 Hospital Discharge instructions Patient Education 08/05/2023 22:03:47 [...] or as directed by your healthcare provider [phone] [employer]. [address] [place] [address]. All rights reserved. This information is not intended as a substitute for professional medical care. Always follow yourhealthcare professional's instructions. Follow Up Care 08/05/2023 15:51:25 With:Follow up with primary care provider Address:Unknown When:2-4 days [facility] 05-30-2024 Note Discharge Instructions Thank you for allowing [facility] to assist you with your healthcare needs. [...] or as directed by your healthcare provider [phone] [employer]. [address] [place] [address]. All rights reserved. This information is not intended as a substitute for professional medical care. Always follow yourhealthcare professional's instructions. Additional Information VACCINATE! IT SAVES LIVES! Members of the community who have not yet received the COVID-19 vaccine and would like to receive it can visit one of [facility] vaccine clinics. There are many vaccine clinic locations within the [facility]. For locations and available times, please visit www.[email or web address].[email or web address]/. It is important to note that some COVID mobile vaccine clinics are held outdoors and may be canceled in rainy or stormy conditions. To learn more about pediatric vaccinations (ages 5-11), we invite you to visit the [facility] webpage. https://www.[email or web address].org/pages/2940-Aivzs-Dybnkoeltfb-Boggkbwidx-Jpxfx-Amc stions.htmlTo learn more about the COVID-19 vaccine, we invite you to visit the CDC website for a list of frequently asked questions. https://www.cdc.gov/coronavirus/2019-ncov/vaccines/faq.html [facility] Patient [facility] Access Instructions: Stay connected with your healthcare team and access your personal medical information anytime with the [facility] Patient Portal. If you would like a full copy of your medical records please contact the Medical Records Department Wednesday through Wednesday between 8a.m. and 4:30p.m. Please follow the directions below to access the portal: 1.Access the email account you provided upon registration to the [facility].2.Look for an invitation email from .3.Open the email and access the invitation link: Accept Invitation to [facility]4.Fill in the required [place] to create your account. Sign into www.[employer] with your username and password that you [...] you will allow to register on the [facility] Patient Portal for access to your information. You can also access the [facility] Patient Portal on the [employer] nehemias. Simply click on Health Records under [employer] and then click on the [employer] logo. HOW TO SAFELY DISPOSE OF PRESCRIPTION [...] Call your local pharmacy or go to [email or web address] around [email or web address] to find one close to you.3.Make use of household items: Use cat litter or old coffee grounds to dispose medications if other options arenot available. Mix your drugs with these household products, seal them in an airtight container andthrow it into the garbage. Call [facility]: [phone] to be sure your drugs can be [...] aware that I should contact my doctor. Patient/Swimming Coach Signature: Date/Time: Relationship to Patient: Witness Name/Signature: Date/Time: [facility]05-30-2024 Note ORIGINAL EXAMINATION: CTA OF THE [...] Date: 08/05/2023 9:17:05 PM Ordering Provider: DARIUS [facility]05-30-2024 Note ORIGINAL EXAMINATION: ONE XRAY VIEW [...] Date: 08/05/2023 5:14:52 PM Ordering Provider: DARIUS [facility]05-30-2024 NoteSinus rhythm Consider anterior infarct Electronic Signature: DARIUS KAUFMAN MD 08/05/2023 16:34:46[facility] 12-20-2022 Chief complaint Narrative - Reported* An interactive audio and video telecommunication system which permits real time communications between the patient (at the originating site) and provider (at the distant site) was utilized to providethis telehealth service. * Verbal consent was requested and obtained from SHU GASPAR on this date, 02/24/2022 12:30 PM , for a telehealth visit. [place] [address] DO Work Phone: 1(213) 542-624512-20-2022 Chief complaint Narrative - Reported* An interactive audio and video telecommunication system which permits real time communications between the patient (at the originating site) and provider (at the distant site) was utilized to providethis telehealth service. * Verbal consent was requested and obtained from SHU GASPAR on this date, 02/24/2022 12:30 PM , for a telehealth visit. DP-Hvrnonmeiw-Pzsnbrn 1200 DO Work Phone: 1(446) 785-401812-02-2022 History of Present illness Narrative* Pt. to [...] had her first menstrual cycle * 02/13/22 VG-BBBTC-Otjbozdi 2420 DO Work Phone: 1(871) 260-139911-02-2022 NoteSend Summary: Note Recipients: Discharge: Summary: Admission Date: .04-Jan-2022 08:18:00 Discharge Date: 07-Jan-2022 Attending Physician at Discharge: Yasmin Lackey Admission Reason: IOL Final Discharge Diagnoses: (normal spontaneous vaginal delivery) Procedures: none Condition at Discharge: Satisfactory Disposition at Discharge: .Home Vital Signs: T PRBPMAPSpO2 Value36.52826932/381095% Date/Time01/07 8: 8: 8: 8: 8: 8:05 Range(36C - 36.8C ) (75 - 93 ) (16 - 20 ) (111 - 137 )/ (70 - 90 ) (84 - 106 ) (95% - 98% ) Date: Weight/Scale Type:Height: 30-Dec-2021 08:23322 kg / jtpzsiyk694.4 cm Physical Exam: General: well appearing, well-nourished, [...] home Maternal Well-Being - emotional support provided [place] Feeding - /pumping encouraged; consult prn notable [...] 05-Jan-2022 09:17:00 Radiology Results - Pending: None [place] Suicide Risk: negative Discharge Instructions: Activity: Return [...] discharge: Full Code Electronic Signatures: Yasmin Lackey (INBOUND SALES CONSULTANT-COMMERCIAL HORTICULTURE INSTRUCTOR) (Signed 07-Jan-2022 09:54) Authored: Send Summary, Summary Content, Immunizations, Ongoing Care, DNR Status, Note Completion Last Updated: 07-Jan-2022 09:54 by Yasmin Lackey (INBOUND SALES CONSULTANT-COMMERCIAL HORTICULTURE INSTRUCTOR)[facility]10-31-2022 History of Present illness Narrative* The patient is being seen for follow up. The patient is status post vaginal delivery. Obs tetrical complications include pre-eclampsia and After delivery. Delivery date was 01.05.22. The baby is a boy. The baby's name is Chad. weight was 7 lbs, 8 oz. [place] complications includerespiratory distress. He was circumcised. The [...] BID. No h/o CHTN prior to . AM-DIRTY-Fxfrjwzr 8542 DO Work Phone: [phone]) [phone] NoteProvider Information: Maternal Delivery Information: Delivery Type: [...] without a resident Electronic Signatures: Tameka Gonsalves (INBOUND SALES CONSULTANTHOUSE OF THE GOOD SAMARITAN) (Signed 05-Jan-2022 07:31) Authored: Provider Information, Hemorrhage Risk, Note Completion Last Updated: 05-Jan-2022 07:31 by Tameka Gonsalves ([facility]) References: 1. Data Referenced From History and Physical - OB 04-Jan-2022 09:54[facility]10-30-2022 NoteClinical Event: Clinical Event Note: Topiclabor progress [...] good contraction pattern Will anticipate Grace Vagi, INBOUND SALES CONSULTANT CNM Electronic Signatures: Grace Valdez (MAGALY-JASPAL) (Signed 04-Jan-2022 17:17) Authored: Clinical Event Note Last Updated: 04-Jan-2022 17:17 by Grace Valdez (MAGALY-JASPAL)[facility]10-30-2022 NoteClinical Event: Clinical Event Note: Topiclabor progress [...] Valdez APRN CNM Electronic Signatures: Grace Valdez (INBOUND SALES CONSULTANT-[facility]) (Signed 04-Jan-2022 13:16) Authored: Clinical Event Note Last Updated: 04-Jan-2022 13:16 by Grace Valdez (MAGALY-CN)[facility]10-30-2022 NoteHPI/OB History: Care Provider: Tom Bull HPI [...] obesity, anxiety PSH: Gallbladder 2012 Allergies: Codeine MANAGER DIGITAL AD OPERATIONS hx: PCOS, HPV OBHx: n/a Fam hx: [...] Syphilis Results: negative Antepartum/: Antepartum/PP: Date Earliest [id number] EGA at that study (weeks)8.5 SLIME by [id number] Final [id number] Current EGA:39.2 Patient is > or = [...] Itching, Gynecomastia Objective: Objective Information: T PRBPMAPSpO2 Value36.13505818/2502832% Date/Time01/04 8: 8: 8: 8: 8: 8:45 [...] negative for lesions Res (more content not included)...[facility]04-08-2022 Note Date of Procedure: 06/13/2021 Pathologist: [facility], Cytology Date Reported: 06/24/2021 Date Received: [...] Range: Negative Slide(s) initially screened by a Beading Machine Operator at [facility], [address] [place] [address] Testing for high-risk (HR) type of human [...] verified by the Molecular Diagnostic Laboratory at [facility]. The lab is certified under the Clinical Laboratory Amendments of 1988 (CLIA 88) as qualified to perform high complexity clinical laboratory testing. This specimen has been analyzed by the CampandaPrep Imaging System ([employer] an automated imaging and review system, which assists the laboratory in evaluating cells on ThinPrep Pap tests. Following automated imaging, selected [place] from every slide were reviewed by a machine whitener and/or pathologist. Electronically Signed Out By [facility], Cytology//JMD By the signature on this [...] Source of Specimen A: THINPREP PAP CERVICAL [facility] Department of Pathology [id number] [address] StreetComment on above:Performed By: #### C #### [facility] Cytology [id number] [facility] [id number] History of Present illness Narrative* 31 yo MFG1P! referred by OB. PMH May 2021, in September 2021. together for one yr. 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 is fantastic. [place] like want to escape, no SI/HI. Had [...] an affair, high stress in job. took AHYLEY from work, Severe MDD, w/ SI saw [...] None * PSYCHOSOCIAL Hx * B/R [place] * Parents and together * Siblings middle child of siblings * Education : Ass Degree in Nursing , Ass Arts * Employed since 2014 * since September 2021 , * No legal issues LI-Txnlleptwh-Ofhshxl 1200 DO Work Phone: 1(173) 956-369703-01-2022 History of Present illness Narrative* SHU is a 31 yo MFG1P! referred by OB. PMH Hx of depression w/ SI Attempt, and anxiety treated w/ Escitalopram 20 mg since age 15 yo. in May 2021, in September 2021, together for one yr. 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 is fantastic. [place] like want to escape, no SI/HI. [place] [...] None * PSYCHOSOCIAL Hx * B/R [place] * Parents and together * Siblings middle child of siblings * Education : Ass Degree in Nursing , Ass Arts * Employed since 2014 * since September 2021 , * No legal issues RU-Jyarowjiey-Ynnogmd 1200 DO Work Phone: 1([phone]) 617-714602-23-2022 History of Present illness Narrative1) Pt presents today stating she took a test 04/30/21 and it was positive. She states shethinks she has a yeast infection, she states it is itchy.[facility] Work Phone: Evaluation + Plan note No data available for this section [facility] Evaluation noteN/ADept. 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 Evaluation note* [...] or erythemaPsychological: appropriate affect, interactiveConstitutional: alert, oriented [facility] noteNo assessment information available [facility] Work Phone: History of Present illness Narrative* The patient is being seen for follow-up of obesity. The patient reports doing well and a weight loss of 6 pounds. * HEALTH MAINTENANCE - * FLU: utd * COVID (Moderna, Pfizer): [facility]d [facility] Work Phone: History of Present illness Narrative* The patient is being seen for follow-up of obesity. The patient reports doing well and a weight loss of 6 pounds. * HEALTH MAINTENANCE - * FLU: utd * COVID (Moderna, Pfizer): utd [facility] Work Phone: History of Present illness Narrative* [...] time off per month is patient requesting? [facility] Work Phone: History of Present illness Narrative* [...] time off per month is patient requesting? [facility] Work Phone: History of Present illness NarrativeThe patient is being seen for initiating contraception. Patient goals include prevention.The patient is currently asymptomatic.[facility] Work Phone: Hospital Discharge instructions* Activity:Return to [...] Gold Form - Other Clinicians:Nursing Instructions: The [place] Academy of Pediatrics recommends that pacifier use [...] Get Care for These POST- Warning Signs [facility] Dis[facility] instructions Additional Instructions Call tomorrow to schedule appt for Wednesday OB BP check with Return to [facility] or call moving consultant OB doctor if: JEFFERS is unresolved, visual dist, right upper abdomenal pain, or rapid weight gain from swelling. Check BP at home: AM, afternoon, and evening. If >160/110 return to hosp blending supervisor Rx at [facility] for Labetelol 100 mg take in AM and PM. Fiorcet for headache. Fiorcet has tylenol so don't take more than 4 Grams of Tylenol daily to prevent liver damage.[facility] Work Phone: Hospital Discharge instructionsAdditional Instructions keep scheduled appointments for next week.[facility] Work Phone: Progress note Author Anh Soto [facility] Note Date/Time August 02, 2024 11:33 am [facility] [address] [place] [address], [address] [place] [address] OFFICE VISIT Date of Service: 08/02/24 MR#: [id number] Acct: [id number] Name: SHU GASPAR Rep #: [id number] : 1990 Provider: Dr. Juana Song, Age/Sex: 33/F Location: [facility] Status: Signed Intake Vital Signs 06/09/24 13:11 07/06/24 15:06 08/02/24 11:02 08/02/24 11:04 Height 5 ft 2 in 5 ft 2 in 5 ft 2 in 5 ft 2 in Weight: 266 lb BMI 48.6 BP 118/75 Intake Visit Reasons: 16wk ob Histotechnician Required: No Is patient in pain?: No Allergies No Known Allergies Allergy (Verified 08/02/24 11:02) Medications ?Medication ?Instructions ?Recorded ?Confirmed ?Type fxxqcudi-qif-De-FA 1 mg tab PO 01/11/2208/02 History tablet [...] Lgth Anesthesia Del Locatn Provider FOB 01/05/22 [place] 39 live - full term 7lbs 8oz [...] between 32-34 weeks, deliver at 37-38 weeks.prefers stock speculator delivery if possible! JV- planning to stop metform in and do glucola at 26-28 weeks. continue baby asa and metoprolol. plan weekly testing @ 32 weeks, deliver at 37-38 weeks.prefers stock speculator delivery if possible! ACOG First Trimester First [...] Cosigner Signature: Date (if applicable) CC: ~ [facility] Work Phone: Progress note Author Carmen Perdomo [facility] Note Date/Time October 02, 2024 10:0 2am [facility] [address] [place] [address], [address] [place] [address] OFFICE VISIT Date of Service: 10/02/24 MR#: [id number] Acct: [id number] Name: SHU GASPAR Rep #: [id number] : 1990 Provider: AMIE Perdomo Age/Sex: 33/F Location: [facility] Status: Signed Intake Vital Signs 07/06/24 15:06 09/01/24 14:59 10/02/24 09:42 Height 5 ft 2 in 5 ft 2 in 5 ft 2 in Weight: 265 lb 6 oz BMI 48.5 BP 124/83 H Intake Visit Reasons: 24 wk ob Chief Complaint: 24wk OB Histotechnician Required: No Is patient in pain?: No Allergies No Known Allergies Allergy (Verified 10/02/24 09:40) Medications 3 ?Medication ?Instructions ?Recorded ?Confirmed ?Type qfaokspu-jda-Se-FA 1 mg tab PO 01/11/2210/02 History tablet [...] term 7lbs 8oz Male e pidural [facility] Pr[facility] Delivery Date: 01/05/22 Last Updated by: Andressa [...] between 32-34 weeks, deliver at 37-38 weeks.prefers stock speculator delivery if possible! JV- planning to stop metform in and do glucola at 26-28 weeks. continue baby asa and metoprolol. plan weekly testing @ 32 weeks, deliver at 37-38 weeks.prefers stock speculator delivery if possible! 09/01/24 -?-?-?-?-?-?-?-?-?-?-?-?- 20w 5d [...] Cosigner Signature: Date (if applicable) CC: ~ [facility] Work Phone: Progress note Author Tawana Timmons [facility] Note Date/Time November 23, 2024 10:01am [facility] [address] [place] [address], [address] [place] [address] OFFICE VISIT Date of Service: 11/23/24 MR#: [id number] Acct: [id number] Name: SHU GASPAR Rep #: [id number] : 1990 Provider: Dr. Behzad Timmons MD Age/Sex: 33/F Location: [facility] Status: Signed Intake Vital Signs 10/02/24 09:42 10/30/24 13:49 11/23/24 09:22 Height 5 ft 2 in 5 ft 2 in 5 ft 2 in Weight: 268 lb 5 oz 275 lb BMI 49.1 50.3 BP 120/83 H 114/75 Intake Visit Reasons: 32 wk ob Histotechnician Required: No Is patient in pain?: No Allergies No Known Allergies Allergy (Verified 11/23/24 09:26) Medications ?Medication ?Instructions ?Recorded ?Confirmed ?Type seqhbgkq-ihu-Wy-FA 1 mg tab PO 01/11/2211/23 History tablet [...] Lgth Anesthesia Del Locatn Provider FOB 01/05/22 [place] 39 live - full term 7lbs 8oz [...] between 32-34 weeks, deliver at 37-38 weeks.prefers stock speculator delivery if possible! JV- planning to stop metform in and do glucola at 26-28 weeks. continue baby asa and metoprolol. plan weekly testing @ 32 weeks, deliver at 37-38 weeks.prefers stock speculator delivery if possible! 09/01/24 -?-?-?-?-?-?-?-?-?-?-?-?- 20w 5d [...] and Symptoms of Preeclampsia, Feeding No , [place] Education and Family Medical Leave or Disability Forms Immunizations Boostrix Tdap 2.5 Lf unit-8 mcg-5 Lf/0.5 mL intramuscular syringe Performing Provider: Tawana Timmons MD Performing Location: [facility] Administered by: Ade Price on 11/23/24 09:31 Dose Route Admin Location Dispensed Lot Number Expiration Date Pack age NDC NDC Evs Manager 0.5 mL IM Right Deltoid 0.5 mL [id number] 11/05/26 01215-475-82 [id number] SANOFI- PASTEUR VIS Given Date VIS Provided [...] Cosigner Signature: Date (if applicable) CC: ~ [facility] Work Phone: Progress note Author Ade Fam [facility] Note Date/Time November 30, 2024 9:50am [facility] [address] [place] [address], [address] [place] [address] OFFICE VISIT Date of Service: 11/30/24 MR#: [id number] Acct: [id number] Name: SHU GASPAR Rep #: [id number] : 1990 Provider: ALVINA Fam Age/Sex: 33/F Location: [facility] Status: Signed Intake Vital Signs 10/30/24 13:49 11/23/24 09:22 11/30/24 09:42 11/30/24 09:44 Height 5 ft 2 in 5 ft 2 in 5 ft 2 in 5 ft 2 in Weight: 277 lb 6 oz BMI 50.7 BP 129/84 H Intake Visit Reasons: 33 WK OB Chief Complaint: 33 Week OB Histotechnician Required: No Is patient in pain?: No Allergies No Known Allergies Allergy (Verified 11/30/24 09:41) Medications ?Medication ?Instructions ?Recorded ?Confirmed ?Type koxqlvem-cgt-Th-FA 1 mg tab PO 01/11/2211/30 History tablet [...] current occupational status: employed 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 JV- planning to stop metform in and do glucola at 26-28 weeks. continue baby asa and metoprolol. plan weekly testing @ 32 weeks, deliver at 37-38 weeks.prefers stock speculator delivery if possible! 09/01/24 -?-?-?-?-?-?-?-?-?-?-?-?- 20w 5d [...] 0953 <Electronically signed by Ade dallas NP RADIAL DRILL PRESS OPERATOR FOR PLASTIC-C> Date _ Ade Peñatings RADIAL DRILL PRESS OPERATOR FOR PLASTIC RADIAL DRILL PRESS OPERATOR FOR PLASTIC-C Cosigner Signature: Date (if applicable) CC: ~ [facility] Work Phone: Progress note Author Anh Soto [facility] Note Date/Time December 08, 2024 9: 46am [facility] [address], [address] [place] [address] OFFICE VISIT Date of Service: 12/08/24 MR#: [id number] Acct: [id number] Name: SHU GASPAR Rep #: [id number] : 1990 Provider: Dr. Juana Song DO Age/Sex: 33/F Location: [facility] Status: Signed Intake Vital Signs 10/02/24 09:42 11/30/24 09:44 12/08/24 08:49 12/08/24 09:44 Height 5 ft 2 in 5 ft 2 in 5 ft 2 in Weight: 276 lb 4 oz 276 lb 6.4 oz BMI 50.5 BP 123/79 H 123/79 H Intake Visit Reasons: 34 wk ob Histotechnician Required: No Is patient in pain?: No Allergies No Known Allergies Allergy (Verified 12/08/24 08:49) Medications ?Medication ?Instructions ?Recorded ?Confirmed ?Type pwdokbnc-ill-Nh-FA 1 mg tab PO 01/11/2212/08 History tablet [...] Lgth Anesthesia Del Locatn Provider FOB 01/05/22 [place] 39 live - full term 7lbs 8oz [...] between 32-34 weeks, deliver at 37-38 weeks.prefers stock speculator delivery if possible! JV- planning to stop metform in and do glucola at 26-28 weeks. continue baby asa and metoprolol. plan weekly testing @ 32 weeks, deliver at 37-38 weeks.prefers stock speculator delivery if possible! 09/01/24 -?-?-?-?-?-?-?-?-?-?-?-?- 20w 5d [...] Cosigner Signature: Date (if applicable) CC: ~ [facility] Work Phone: Progress note Author Tawana Timmons [facility] Note Date/Time December 13, 2024 9: 36am [facility] [address] [place] [address], [address] [place] [address] OFFICE VISIT Date of Service: 12/13/24 MR#: [id number] Acct: [id number] Name: SHU GASPAR Rep #: [id number] : 1990 Provider: Dr. Behzad Timmons MD Age/Sex: 33/F Location: [facility] Status: Signed Intake Vital Signs 10/02/24 09:42 12/08/24 08:49 12/13/24 09:21 Height 5 ft 2 in 5 ft 2 in 5 ft 2 in Weight: 276 lb 6 oz BMI 50.5 BP 126/85 H Intake Visit Reasons: 35 WK OB Histotechnician Required: No Is patient in pain?: No Allergies No Known Allergies Allergy (Verified 12/13/24 09:18) Medications ?Medication ?Instructions ?Recorded ?Confirmed ?Type aaddwvnl-kmi-Of-FA 1 mg tab PO 01/11/2212/13 History tablet [...] Lgth Anesthesia Del Locatn Provider FOB [birth year] [place] 39 live - full term 7lbs 8oz [...] between 32-34 weeks, deliver at 37-38 weeks.prefers stock speculator delivery if possible! JV- planning to stop metform in and do glucola at 26-28 weeks. continue baby asa and metoprolol. plan weekly testing @ 32 weeks, deliver at 37-38 weeks.prefers stock speculator delivery if possible! 09/01/24 -?-?-?-?-?-?-?-?-?-?-?-?- 20w 5d [...] and Symptoms of Preeclampsia, Feeding No , [place] Education and Family Medical Leave or Disability Forms Results POC Urinalysis 2 Dip (Clinic) Office Urine Glucose Negative Last Edit by Ade Price on 12/13/24 09:23 Office Urine Protein [...] ash MD> Date _ Tawana Timmons MD [facility] Signature: Date (if applicable) CC: ~ [facility] Work Phone: Reason for referral (narrative)* Name Reason for referral NA 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 Reason for referral (narrative)No reason for referral [facility] Work Phone: Family History No Family History [...] itchy.* PPV * EPDS= 5 * Declined Bonsai Culturist: LEONARDA Oquendo * A telephone visit (audio only) between the patient (at the originating site) and the provider (at the distant site) was utilized to provide this telehealth service. * This is a telephone visit due to the COVID-19 Pandemic * 6 wk PPV * Bonsai Culturist Declined: MIKAELA Ty Chief Complaint and Reason for Visit Chief Complaint RULE OUT PRE ECLAMPS IA Chief Complaint Admit Date Annual (MANAGER DIGITAL AD OPERATIONS) May 03, 2024 11:53am Reason for Visit Admit Date Encounter for routine gynecological exam ination May 03, 2024 11:53am Chief Complaint Admit Date Annual (MANAGER DIGITAL AD OPERATIONS) May 03, 2024 11:53am Amb Documentation May [...] 1:05 pm Chief Complaint Admit Date Annual (MANAGER DIGITAL AD OPERATIONS) May 03, 2024 11:53am Amb Documentation May [...] 2024 2:57pm Chief Complaint Admit Date Annual (MANAGER DIGITAL AD OPERATIONS) May 03, 2024 11:53am Amb Documentation May 26, 2024 8:2 2am NOB LMP 04/09June 09, 2024 1:05 pm 12wk OB July 06, 2024 2:57pm OBESITY July 21, 2024 8:53a m July 21, 2024 9:05a m Chief Complaint Admit Date Annual (MANAGER DIGITAL AD OPERATIONS) May 03, 2024 11:53am Amb Documentation May [...] 30, 2024 1: 40pm Abnormal glucose affecting [facility]2024 9:16am [facility] 9:16am AMA (advanced maternal age) multigravida 35+ November 23, 2024 9:16am Depression November 23, 2024 9:16am Herpes simplex type 2 infection [facility] 2024 9:16am Obesity affecting November 232024 9:16am Polycystic disease, ovaries November 232024 9:16am November 23, 2024 9:16am Supervision of high-risk [facility] 2024 9:16am Hypertension November 23, 2024 9:16am Abnormal glucose affecting [facility] 2024 9:39am AMA (advanced maternal age) multigravida 35+ November 30, 2024 9:39am Depression November 30, 2024 9:39am Herpes simplex type 2 infection [facility] 2024 9:39am Obesity affecting November 302024 9:39am November 30, 2024 9:39am Supervision of high-risk [facility] 2024 9:39am Hypertension November 30, 2024 [...] 23, 2024 9:16am Supervision of high-risk [facility] 2024 9:16am Hypertension November 23, 2024 9:16am Abnormal glucose affecting Sep 2024 9:39am AMA (advanced maternal age) multigravida 35+ November 30, 2024 9:39am Depression November 30, 2024 9:39am [facility] Obesity affecting November 302024 9:39am November [...] affecting Nov 9:16am Acute thoracic myofascial strain [facility] 2024 9:16am AMA (advanced maternal age) multigravida 35+ November 23, 2024 9:16am Depression November 23, 2024 9:16am Herpes simplex type 2 infection [facility] 2024 9:16am Obesity affecting November 232024 9:16am Polycystic disease, ovaries November 232024 9:16am November 23, 2024 9:16am [facility] 2024 9:16am Hypertension November 23, 2024 9:16am Abnormal glucose affecting Sep 2024 9:39am AMA (advanced maternal age) multigravida 35+ November 30, 2024 9:39am Depression November 30, 2024 9:39am [facility] 9:39am Obesity affecting November 302024 [...] section and content) DATE CREATED AUTHOR 04/04/2020 [facility] DATE CREATED AUTHOR AUTHOR'S ORGANIZ ATION 03/01/2022 [facility] DATE CREATED AUTHOR AUTHOR'S ORGANIZ ATION 03/03/2022 [employer] DATE CREATED AUTHOR AUTHOR'S ORGANIZ ATION 08/17/[address] [facility] DATE CREATED AUTHOR AUTHOR'S ORGANIZ ATION 08/15/2023 [facility] ([place]) DATE CREATED AUTHOR AUTHOR'S ORGANIZ ATION 06/25/2024 [facility] DATE CREATED AUTHOR AUTHOR'S ORGANIZ ATION 09/16/2024 [facility] DATE CREATED AUTHOR AUTHOR'S ORGANIZ ATION 12/20/2024 [facility] <item> Privacy Markings (unrecogniz ed section and [...] 02, 2024 End: August 02, 2024 Dr. Twaana Timmons MD Referring Provider Active Start: August [...] Active Member Role/Relationship Status Dates Dr. Judie Blela MD Primary Care Provider Active Start: July [...] 2024 End: November 30, 2024 Ade Fam RADIAL DRILL PRESS OPERATOR FOR PLASTIC, RADIAL DRILL PRESS OPERATOR FOR PLASTIC-C Attending physician Active Start: November 30, 2024 [...] BE BASED ON THE PRIMARY CLINICAL RECORDS. [facility]. provides no warranty or guarantee of the accuracy or completeness of information in this document.
== END | disposition home or self-care (01) ==
LOC: LABSPEC 16:52
PROVIDERS: PCP Family Medicine; Referring Provider Advanced Practice Midwife; Visit Provider Advanced Practice Midwife
DX: O09.93 Supervision of high risk pregnancy, unspecified, third trimester (principal); Z3A.36 36 weeks gestation of pregnancy
CPT/HCPCS: 87081

== ENCOUNTER 2024-12-25 19:15 | Inpatient (IN) | payer OTHER, BC, SELFPAY ==
[2024-12-25 19:25] VITALS: BMI 51.1
--- OUTSIDE RECORDS SUMMARY | 2024-12-25 19:30 | XMS RPT_ITS | CCD ---
Author Organization [facility] ion [facility] Care Team Providers Care Nuisance Wildlife Specialist Name Role Phone Escolas, Celio Unavailable Unavailable Rafiq Dyson Unavailable Unavailable Ericka Singer Unavailable Unavailable Escolas, Celio W Unavailable Unavailable Mishel Cartagena Unavailable Unavailable Bridger Patel Unavailable Unavailable Gera Flanagan Unavailable Unavailable Zayda Espinosa Unavailable Unavailable OBGYN IVF RDMS [id number] 1, MG OBGYN Unavailable Unavailable Escolas, Celio W Unavailable Unavailable Unavailable Mike Nicholson Unavailable Unavailable Haley Méndez Unavailable Unavailable Unavailable Unavailable Escolas, Celio Unavailable Sarina Hall Unavailable [phone] Tom Bull Unavailable [phone] Suki You Unavailable Unavailable Unavailable Unavailable Dariela [...] Petr-Banak, Ms. Tom Buitrago Referring Unavailable ESCOLAS, [facility] Primary Care Unavailable Petr-Banak, Ms. Tom Buitrago [...] Unavailable ESCOLAS, CELIO Hankins Primary Care Unavailable Cat SpringKrystal Attending Unavailable Petr-Banak, Ms. Tom Buitrago Referring [...] JOSEPH DEL CID DO Attending Unavailable LIZETH GOLDSTEINN-STEAM ROOM ATTENDANT, SANJANA Roman Primary Care UnaCarmen Myles CNM Attending Provider [phone] Carmen Perdomo CNM Referring Provider [phone] Andressa Schmitz RN Attending Provider Unavailabl e ESCOLAS, CELIO W Attending Unavailable ESCOLAS, CELIO W Primary Care Unavailable Dr. Tawana Timmons MD Attending Provider Dr. Tawana Timmons MD Referring Provider Dr. Judie Bella MD Primary Care Provider [phone] Dr. Arnulfo Gilmore MD Attending Provider Dr. Judie Bella MD Referring Provider [phone] Dr. Anh Song DO Attending Provider Carmen Perdomo CNM Attending Provider [phone] Carmen Perdomo CNM Referring Provider 1330 NO PRIMARY CARE, Primary Care Unavailable TIM BAH Attending Unavailable TAWANA TIMMONS Referring Unavailabl e MIEDEL, JUDIE E Primary Care Unavailable GOPI GONZALEZ Attending Unavailable TAWANA TIMMONS Referring Unavailabl e Conor CNM, Carmen Attending Provider [phone] Conor CNM, Carmen Referring Provider [phone] Pennie DE LA CRUZ, Dr. Gilliam Attending Provider [phone] Pennie DE LA CRUZ, Dr. Gilliam Referring Provider Conor SHAYM, Carmen Attending Provider [phone] Shayne DE LA CRUZ, Dr. Dimas Primary Care Physician [phone] Abram Soto DO, Dr. Kamara Attending Physician Pennie DE LA CRUZ, Dr. Gilliam Attending Physician Dr. Tawana Timmons MD Referring Provider Conor SHAYM, Carmen Attending Physician [phone] Abram Soto DO, Dr. Kamara Attending Physician Shayne DE LA CRUZ, Dr. Dimas Primary Care Physician [phone] Shayne DE LA CRUZ, Dr. Dimas Referring Provider [phone] Pennie DE LA CRUZ, Dr. Gilliam Attending Physician Cristel MYERS-CAde Attending Physician [phone] Pennie DE LA CRUZ, Dr. Gilliam Referring Provider [phone] Carmen Perdomo Attending Unavailable Carmen Perdomo Referring Unavailable Carmen Perdomo Referring Unavailable Carmen Perdomo Attending Unavailable Miedel, Judie Primary Care Unavailable Carmen Perdomo Attending Unavailable Carmen Perdomo Referring Unavailable Miedel, Judie Primary Care Unavailable Tawana Timmons Referring Unavailable Tawana Timmons Attending Unavailable Carmen Perdomo Referring Unavailable Miedel, Judie Primary Care Unavailable Carmen Perdomo Attending Unavailable Carmen Perdomo Referring Unavailable Miedel, Judie Primary Care Unavailable Carmen Perdomo Attending Unavailable Miedel, Judie Primary Care Unavailable Tawana Timmons Referring Unavailable Tawana Timmons Attending Unavailable Miedel, Judie Primary Care Unavailable Arnulfo Gilmore Attending Unavailable Tawana Timmons Referring Unavailable Miedel, Judie Referring Unavailable Miedel, Judie Primary Care Unavailable Tawana Timmons Attending Unavailable Tawana Timmons Attending Unavailable Miedel, Judie Referring Unavailable Miedel, Judie Primary Care Unavailable Cristel IN FLIGHT REFUELING OPERATOR, Ade Attending Unavailable Miedel, Judie Referring Unavailable Miedel, Judie Primary Care Unavailable Anh Song Attending Unavailabl e Miedel, Judie Primary Care Unavailable Carmen Perdomo Attending Unavailable Carmen Perdomo Referring Unavailable Miedel, Judie Primary Care Unavailable Carmen Perdomo Attending Unavailable Carmen Perdomo Referring Unavailable Carmen Perdomo Referring Unavailable Miedel, Judie Primary Care Unavailable Camren Perdomo Attending Unavailable Carmen Perdomo Referring Unavailable Miedel, Judie Primary Care Unavailable Carmen Perdomo Attending Unavailable Carmen Perdomo Attending Unavailable Tawana Timmons Referring Unavailable Miedel, Judie Referring Unavailable Miedel, Judie Primary Care Unavailable Anh Song Attending Unavailabl e Miedel, Judie Referring Unavailable Miedel, Judie Primary Care Unavailable Anh Song Attending Unavailabl e Miedel, Judie Referring Unavailable Miedel, Judie Primary Care Unavailable Tawana Timmons Attending Unavailable Miedel, Judie Referring Unavailable Miedel, Judie Primary Care Unavailable Carmen Perdomo Attending Unavailable Carmen Perdomo Referring Unavailable Miedel, Judie Primary Care Unavailable Carmen Perdomo Attending Unavailable Carmen Perdomo Attending Unavailable Miedel, Judie Primary Care Unavailable Carmen Perdomo Attending Unavailable Carmen Perdomo Referring Unavailable Carmen Perdomo Attending Unavailable Miedel, Judie Primary Care Unavailable Miedel, Judie Referring Unavailable Carmen Perdomo Attending Unavailable Miedel, Judie Referring Unavailable Miedel, Judie Primary Care Unavailable Carmen Perdomo Attending Unavailable Andressa Schmitz Attending Unavailable Miedel, Judie Referring Unavailable Miedel, Judie Primary Care Unavailable Anh Song Attending Unavailabl e Miedel, Judie Primary Care Unavailable Tawana Timmons Referring Unavailable Tawana Timmons Consulting Unavailable Tawana Timmons Attending Unavailable Miedel, Judie Primary Care Unavailable Tawana Timmons Referring Unavailable Tawana Timmons Attending Unavailable Allergies Allergy Classification Reported Allergen(s) Allergy Type Date of Onset Reaction(s) Facility Opioid Agonists (6 sources) Codeine; Translations: [Codeine Derivatives] [facility] (20 sources) Codeine; Translations: [Codeine Derivatives] Drug Allergy 2 Vomiting, Nausea [facility] Work Phone: (2 sources) Codeine; Translations: [CODEINE] Drug Allergy 3 [facility] (2 sources) vilazodone; Translations: [VILAZODONE HCL] Drug Allergy 2 [facility] Medications Current Medications Medication Drug Class(es) Dates [...] mg/ml topical lotion (1 source) Start: 04-08-2021 877606 Medication benzoyl peroxide 5 % topical cleanser benzoyl peroxide 5 % topical cleanser 5 % 1 Application topically daily 04/08/2021 Active (Current) cholecalciferol 0.01 mg oral tablet (4 sources) Vitamin D Start: 04-08-2021 569245 Medication cholecalciferol (vitamin D3) 10 mcg (400 [...] (17 sources) Proton Pump Inhibitor Start: 03-06-2021 209819 Medication dexlansoprazole 60 mg capsule,biphase delayed release [...] BY MOUTH EVERY DAY Quantity: 30 Refills: Celio Zhou DO Active 24 hr metoprolol [...] take 1 capsule by mouth twice daily 000404 Medication minocycline 100 mg capsule minocycline 100 [...] Ordered: 12-Dec-[address] Generic Substitution Allowed Csigdffu-Fjn-Pa-Fa (1 source) Start: 01-11-2022 take 1 tablet by mouth once Wxuwbvvz-Khx-Lf-Fa Active TABLET PO January 10, 2022 11:00pm Wojszpzx-Ctz-Tq-Fa 1 mg Tablet (18 sources) Start: 01-11-2022 take 1 tablet by mouth once daily Kqqrotem-Vfj-Fs-Fa 1 mg Tablet Active 1 {tbl} PO DAILY January 11, 2022 12:00am Complies with drug therapy Start: 01-11-2022 take 1 tablet by mouth once Pr enatal Mvrnhzxq-Esb-Yc-Fa 1 mg Tablet Active {tbl} PO January 11, 2022 12:00am Complies with drug therapy Start: 01-11-2022 take 1 tablet by mouth once Pr enatal Dwgaavwu-Bgd-Ox-Fa 1 mg Tablet Active {tbl} PO January 11, 2022 12:00am tretinoin 0.25 mg/ml topical cream (1 source) Retinoid Start: 04-08-2021 455318 Medicat ion tretinoin 0.025 % topical cream [...] mg tablet Active 500 mg PO daily 06 03November 23, 2024 12:00am Complies with drug therapy [...] Start: 12-12-2021 take 1 tablet by norbert twice daily valACYclovir HCl - 500 MG [...] day Quantity: 0 Refills: 0 Ordered: 12-Dec-2021 Domingo, LaKeishia Generic Substitution Allowed Balcoltra 0.1-20 MG-MCG(21) Oral [...] ke 1 ta bl et by mo il h th re e ti me s da il y as ne ed ed fo r pa in Ibuprofen 600 mg tablet Discontinued 600 mg PO THREE TIMES A DAY as needed for pain 30 0 April 21, 2023 1:00am March 17, 2024 9:16am Start: 01-07-2022 take 1 tablet by norbert every six hours ibuprofen 600 mg oral [...] Start: 07-06-2019 take 1 tablet by norbert once daily, then take 3-7 tablets by [...] 1:00am November 23, 2024 10:06am Start: 04-01-2021 749976 Medicat ion metformin ER 750 mg tablet,extended [...] and vagina] Episodic Other aftercare (1 source) superintendent terminal (current) use of aspirin; Translations: [senior care (current) use of aspirin] Onset: 2 Episodic Other aftercare (1 source) Other dedicated intermodal truck driver (current) drug therapy; Translations: [Other dedicated intermodal truck driver (current) drug therapy] Onset: 2 Episodic Other [...] PC: Parth PRR, , SLIME 01/14, PC: Chad [...] above: growth at 36 Other complications of (2 sources) Supervision of high risk , unspecified, third trimester; Translations: [Supervision of high risk , unspecified, third trimester] Onset: 5 Episodic Other complications of (1 source) Unspecified abnormal findings on screening of mother; Translations: [Unspecified abnormal findings on screening of mother] Onset: 5 Episodic Other complications of (1 source) Supervision of elderly multigravida, third trimester; Translations: [Supervision of elderly multigravida, third trimester] Onset: 5 Episodic Other complications of (1 source) Supervision of high risk , unspecified, unspecified trimester; Translations: [Supervision of high risk , unspecified, unspecified trimester] Onset: 5 Episodic Other complications of (1 source) Supervision of elderly multigravida, unspecified trimester; Translations: [Supervision of elderly multigravida, unspecified trimester] Onset: 5 Episodic Other connective [...] ] Onset: 2 Episodic Residual codes; unclassified (2 sources) 36 weeks gestation of ; Translations: [36 [...] Test Name Value Interpretation Reference Range Facility Rule out Beta Strep (Grp. B) on 12-23-2024 MADYSON Group B Beta Streptococcus is not isolated. Normal [facility] Comment on above: Performed By: #### M 100.0550 ####[facility] [address] [facility] [address] [place], [place], [address] OB Biophysical Prof W/O NSTo n 12-21-2024 OB Biophysical Prof W/O NST [facility] Imaging Services [address] [place], [place] [address] OB Biophysical Prof W/O NST MR#: [id number] Acct: [id number] Name: SHU GASPAR Rep #: [id number] : 1990 F 33 From: Jg cantrell MD PCP: Dr. Judie Bella MD Status: [facility] Study: OB Biophysical Prof W/O NST Date of Exam: 12/06 08/30 Exam# [id number] Ordering Dr: Carmen Perdomo CNM PROCEDURE: OB BIOPHYSICAL PROF W/O NST 12/21/2024 REASON FOR EXAM: 36WK BPP, WELLBEING TECHNIQUE: Procedure Code: USBIOWO Modality: US Procedure: OB BIOPHYSICAL PROF W/O NST COMPARISON: Prior study dated December 13, 2024. FINDINGS Number: 1 Position: Oblique right Placental Position: Posterior and not low-lying Placental Abnormalities: No evidence of previa. ESTIMATED GESTATIONAL AGE: Baseline: 36 weeks and 4 days ESTIMATED DATE OF DELIVERY: Baseline: January 14, 2025 BIOPHYSICAL ASSESSMENT: Amniotic Fluid Volume: 5.6 cm Amniotic Fluid Index: 18.2 (8-24 cm normal range) Cardiac Motion: 157 beats per minute (average) Trunk and Limb Motion: Present. Biophysical profile: Breathing movements: 2 Gross body movements: 2 tone: 2 Amniotic fluid volume: 2 Total score: 8/8 US/OB Biophysical Prof W/O NST IMPRESSION: Normal biophysical profile score of 8/8 Reading Location: [facility] CC: AMIE Perdomo; Dr. Judie Bella MD Excavating Supervisor: Signed Normal [facility] OB Limited With Biometricson 12-21-2024 OB Limited With Biometrics [facility] Imaging Services [address] [place] [id number] OB Limited With Biometrics MR#: [id number] Acct: [id number] Name: SHU GASPAR Rep #: [id number] : 1990 F 33 From: Jg cantrell MD PCP: Dr. Judie Bella MD Status: REG CLI Study: OB Limited With Biometrics Date of Exam: 12/21 Exam# [id number] Ordering Dr: Carmen Perdomo CNM PROCEDURE: OB LIMITED WITH BIOMETRICS 12/21/2024 REASON FOR EXAM: 36WK OB, WELLBEING TECHNIQUE: Procedure Code: USOBGROWTH Modality: US Procedure: OB LIMITED WITH BIOMETRICS COMPARISON: Prior study dated November 20, 2024. FINDINGS Number: 1 Position: Oblique right Placental Position: Posterior and not low-lying Placental Abnormalities: No evidence of previa. DIMENSIONS: Biparietal Diameter: 9.1 cm: 36 weeks and 6 days: 70 percentile/ Head Circumference: 33 cm: 37 weeks and 3 days: 44 percentile/ Abdominal Circumference: 32.4 cm: 36 weeks and 2 days: 56 percentile/ Femur Length: 7 cm: 35 weeks and 6 days: 28 percentile/ ESTIMATED WEIGHT: 2934 g plus/-440 g ESTIMATED WEIGHT PERCENTILE (24+ weeks): 50 ESTIMATED GESTATIONAL AGE: Baseline: 36 weeks and 4 days By Ultrasound: 37 weeks and 0 days ESTIMATED DATE OF DELIVERY: Baseline: January 14, 2025 By Ultrasound: January 11, 2025 BIOPHYSICAL ASSESSMENT: Amniotic Fluid Volume: 17.1 cm Amniotic Fluid Index: 6 (8-24 cm normal range) Cardiac Motion: 157 beats per minute (average) Trunk and Limb Motion: Present. US/OB Limited With Biometrics IMPRESSION: Single live intrauterine gestation with a mean gestational age of 37 weeks. Amniotic fluid index is decreased measuring 6 cm. Reading Location: [facility] CC: AMIE Perdomo; Dr. Judie Bella MD Excavating Supervisor: Signed Normal [facility] Supervisor Scouring Pads Office Visit Reporton 12-21-2024 Supervisor Scouring Pads Office Visit Report [facility] [address], [address] [place] [address] OFFICE VISIT Date of Service: 12/21/24 MR#: [id number] Acct: [id number] Name: SHU GASPAR Rep #: [id number] : 1990 Provider: AMIE Talley ams Age/Sex: 33/F Location: [facility] Status: Signed Intake Vital Signs 10/30/24 13:49 12/13/24 11:55 12/21/24 11:25 Height 5 ft 2 in 5 ft 2 in 5 ft 2 in Weight: 279 lb 2 oz BMI 51.0 BP 130/86 H Intake Visit Reasons: 36 WK OB Chief Complaint: 36wk OB 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 Supervisor Required: No Is patient in pain?: No Allergies No Known Allergies Allergy (Verified 12/21/24 11:24) Medications ???Medication ???Instructions ???Recorded ???Confirmed ???Type cbobqpui-png-In-FA 1 mg 1 tab PO DAILY 01/11/22 12/21/24 H istory tablet escitalopram oxalate 20 mg tablet 20 mg PO QDAY 03/17/24 12/21/24 H istory (Lexapro) metoprolol succinate 100 mg 100 mg PO BID 03/17/24 12/21/24 Hi story tablet,extended release 24 hr valacyclovir 500 mg tablet 500 mg PO QDAY #30 tabs 11/23/24 1 Rx (Valtrex) Last Menstrual Period: 04/09/24 : No Have you fallen in the [...] physical activity do you participate in: none baylee/samaritan: None seatbelt use: always do you feel [...] pre-e but now has chronic HTN) HPI 36 WK OB Details: SHU GASPAR is a 33 year old who presents for routine OB visit. OB Visit SLIME Calculator Estimated Delivery Date Method Current WG Current Estimate 01/14/25 LMP (Certain) 36w 4d Other Estimates 01/17/25 Ultrasound #1 36w 1d Expected Delivery Route/Plan Labor Preferences CB/BF [...] oz (+8 oz) 125/80 -???-???-???-???-???-???- ???-???-???-???-???-???- 178 -???-???-???-???-???-?? (more content not included)... Normal [facility] OB Triage Progress Noteon OB Triage Progress Note [facility] Medical Records Department [address] [place] [address] OB Triage Progress Note 12/14/240 MR#: [id number] Acct: [id number] Name: SHU GASPAR Rep #: [id number] : 1990 33 From: Tawana Timmons MD PCP: Dr. Judie Bella MD Status:DEP [facility] DOS: Location: [facility] Progress Notes Date of Service: 12/13/24 Progress Note: Patient presents for triage evaluation secondary to 6/8 bpp FHT: 135 Moderate variability reactive no decelerations category I tracing [place]: no regular Contractions Assessment and plan: 35 weeks abnormal testing 10/15 bpp overall reassuring Reactive NST, reassuring maternal and status patient discharged to home to follow-up []. See problem list details for additional plan information. Charges/Coding Procedures Urinary/Genital 52xxx-59xxx: 69168-20 non-stress test Interp 12/14/24 0011 Date Tawana Timmons MD Cosigner Signature (if applicable): Date CC: Dr. Judie Bella MD; Dr. Tawana Timmons MD Signed Normal [facility] OB Biophysical Prof W/O NSTo n 12-13-2024 OB Biophysical Prof W/O NST [facility] Imaging Services [address] [place] [address] OB Biophysical Prof W/O NST MR#: [id number] Acct: [id number] Name: SHU GASPAR Rep #: [id number] : 1990 F 33 From: Zachariah Razo MD PCP: Dr. Judie Bella MD Status: REG CLI Study: OB Biophysical Prof W/O NST Date of Exam: 10/30 Exam# [id number] Ordering Dr: Carmen Perdomo CNM PROCEDURE: OB BIOPHYSICAL PROF W/O NST 12/13/2024 [...] Prof W/O NST IMPRESSION: BIOPHYSICAL PROFILE SCORE 6/8. breathing/diaphragm movement was not seen during this examination. Close clinical follow-up suggested. Vertex presentation. Normal amniotic fluid volume. Technologist stated she alerted the ordering physician. The patient was returned to the office for monitoring. Reading Location: [id number] CC: AMIE Perdomo; Dr. Judie Bella MD Excavating Supervisor: Signed Normal [facility] Supervisor Scouring Pads Office Visit Reporton 12-13-2024 Supervisor Scouring Pads Office Visit Report [facility] [address], [address] [place] [address] OFFICE VISIT Date of Service: 12/13/24 MR#: [id number] Acct: [id number] Name: SHU GASPAR Rep #: [id number] : 1990 Provider: Dr. Tawana fajardo MD Age/Sex: 33/F [place] [facility] Status: Signed Intake Vital Signs 10/02/24 09:42 12/08/24 08:49 12/13/24 09:21 Height 5 ft 2 in 5 ft 2 in 5 ft 2 in Weight: 276 lb 6 oz BMI 50.5 BP 126/85 H Intake Visit Reasons: 35 WK OB 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 Supervisor Required: No Is patient in pain?: No Allergies No Known Allergies Allergy (Verified 12/13/24 09:18) Medications ???Medication ???Instructions ???Recorded ???Confirmed ???Type hiphazmc-vaa-Jv-FA 1 mg tab PO 01/11/22 12/13/24 History [...] physical activity do you participate in: none baylee/samaritan: None seatbelt use: always do you feel [...] -???-???-???-???-???-???- ???-???-???-???-? (more content not included)... Normal [facility] Laboratory - Chemistry and C hemistry - challengeOrdered By: Anh Brittany on 12-08-2024 Glucose Ql (U) Negative [facility] Laboratory - UrinalysisOrder ed By: Anh Brittany on 12-08-2024 Protein Ql (U) Negative [facility] OB Biophysical Prof W/O NSTo n 12-08-2024 OB Biophysical Prof W/O NST [facility] Imaging Services [address] [place] [address] OB Biophysical Prof W/O NST MR#: [id number] Acct: [id number] Name: SHU GASPAR Rep #: [id number] : 1990 F 33 From: Jg cantrell MD PCP: Dr. Judie Bella MD Status: REG CLI Study: OB Biophysical Prof W/O NST Date of Exam: 05/30 Exam# [id number] Ordering Dr: Carmen Perdomo CNM PROCEDURE: OB [...] NST IMPRESSION: Normal biophysical profile. Reading Location: [id number] CC: AMIE Perdomo; Dr. Judie Bella MD Excavating Supervisor: Signed Normal [facility] Supervisor Scouring Pads Office Visit Reporton 12-08-2024 Supervisor Scouring Pads Office Visit Report [facility] [address] [facility], [address] [place] [address] OFFICE VISIT Date of Service: 12/08/24 MR#: [id number] Acct: [id number] Name: SHU GASPAR Rep #: [id number] : 1990 Provider: Dr. Anh Kirk DO Age/Sex: 33/F [place] [facility] Status: Signed Intake Vital Signs 10/02/24 09:42 11/30/24 09:44 12/08/24 08:49 12/08/24 09:44 Height 5 ft 2 in 5 ft 2 in 5 ft 2 in Weight: 276 lb 4 oz 276 lb 6.4 oz BMI 50.5 BP 123/79 H 123/79 H Intake Visit Reasons: 34 wk ob 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 Supervisor Required: No Is patient in pain?: No Allergies No Known Allergies Allergy (Verified 12/08/24 08:49) Medications ???Medication ???Instructions ???Recorded ???Confirmed ???Type hvzrikmh-zho-Ix-FA 1 mg tab PO 01/11/22 12/08/24 History [...] physical activity do you participate in: none baylee/samaritan: None seatbelt use: always do you feel safe at home: Yes additional social history: : Parth [place] History 2 Elective abortions Hx Para 1 Spontaneous abortions Hx # Term Pregnancies 1 Ectopic pregnancies Hx # Pregnancies Multiple births # of living children 1 Past Pregnancies Del. Date Name GA/Weeks Outcome Route Bth Weight Infant Gen Labor Lgth Anesthesia Del Locatn Provider FOB 01/05/22 Christian 39 live - full term 7lbs 8oz [...] -???-???-???-???-???-???- ???-???-???-???-???-???- (more content not included)... Normal [facility] Laboratory - Chemistry and C hemistry - challengeOrdered By: Ade Fam on 11-30-2024 Glucose Ql (U) Negative [facility] Laboratory - UrinalysisOrder ed By: Ade Fam on 11-30-2024 Protein Ql (U) Negative [facility] OB Biophysical Prof W/O NSTo n 11-30-2024 OB Biophysical Prof W/O NST [facility] Imaging Services [address] [place], [place] [id number] OB Biophysical Prof W/O NST MR#: [id number] Acct: [id number] Name: SHU GASPAR Rep #: [id number] : 1990 F 33 From: Martinez Mckinney MD PCP: Dr. Judie Bella MD Status: REG CLI Study: OB Biophysical Prof W/O NST Date of Exam: 11/07 07/30 Exam# [id number] Ordering Dr: Carmen Perdomo CNM PROCEDURE: OB [...] CC: AMIE Perdomo; Dr. Judie Bella MD Excavating Supervisor: Signed Normal [facility] Supervisor Scouring Pads Office Visit Reporton 11-30-2024 Supervisor Scouring Pads Office Visit Report [facility] [address], [address] [place] [address] OFFICE VISIT Date of Service: 11/30/24 MR#: [id number] Acct: [id number] Name: SHU GASPAR Rep #: [id number] : 1990 Provider: ALVINA chambers Age/Sex: 33/F [place] [facility] Status: Signed Intake Vital Signs 10/30/24 13:49 11/23/24 09:22 11/30/24 09:42 11/30/24 09:44 Height 5 ft 2 in 5 ft 2 in 5 ft 2 in 5 ft 2 in Weight: 277 lb 6 oz BMI 50.7 BP 129/84 H Intake Visit Reasons: 33 WK OB Chief Complaint: 33 Week OB 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 Supervisor Required: No Is patient in pain?: No Allergies No Known Allergies Allergy (Verified 11/30/24 09:41) Medications ???Medication ???Instructions ???Recorded ???Confirmed ???Type tpbbhlcf-sxk-Wh-FA 1 mg tab PO 01/11/22 11/30/24 History [...] physical activity do you participate in: none baylee/samaritan: None seatbelt use: always do you feel safe at home: Yes additional social history: : Parth - [place] History 2 Elective abortions Hx Para 1 Spontaneous abortions Hx # Term Pregnancies 1 Ectopic pregnancies Hx # Pregnancies Multiple births # of living children 1 Past Pregnancies Del. Date Name GA/Weeks Outcome Route Bth Weight Gen Labor Lgth Anesthesia Del Locatn Provider FOB 01/05/22 Christian 39 live - full term 7lbs 8oz [...] -???-???-???-???-???-???- ???-???-???-? (more content not included)... Normal [facility] Supervisor Scouring Pads Office Visit Reporton 11-23-2024 Supervisor Scouring Pads Office Visit Report [facility] [address], [address] [place] [address] OFFICE VISIT Date of Service: 11/23/24 MR#: [id number] Acct: [id number] Name: SHU GASPAR Rep #: [id number] : 1990 Provider: Dr. Tawana fajardo MD Age/Sex: 33/F [place] [facility] [place]: Signed Intake Vital Signs 10/02/24 09:42 10/30/24 13:49 11/23/24 09:22 Height 5 ft 2 in 5 ft 2 in 5 ft 2 in Weight: 268 lb 5 oz 275 lb BMI 49.1 50.3 BP 120/83 H 114/75 Intake Visit Reasons: 32 wk ob 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 Supervisor Required: No Is patient in pain?: No Allergies No Known Allergies Allergy (Verified 11/23/24 09:26) Medications ???Medication ???Instructions ???Recorded ???Confirmed ???Type mvqtijeo-qpy-Im-FA 1 mg tab PO 01/11/22 11/23/24 History [...] physical activity do you participate in: none baylee/samaritan: None seatbelt use: always do you feel [...] -???-???-???-???-???-???- ? (more content not included)... Normal [facility] OB Biophysical Prof W/O FRANCISCOTo n 11-20-2024 OB Biophysical Prof W/O NST [facility] Imaging Services [address] [place] [address] OB Biophysical Prof W/O NST MR#: [id number] Acct: [id number] Name: SHU GASPAR Rep #: [id number] : 1990 F 33 From: Jg cantrell MD PCP: Dr. Judie Bella MD Status: REG CLI Study: OB Biophysical Prof W/O NST Date of Exam: 11/06 07/30 Exam# [id number] Ordering Dr: Carmen Perdomo CNM PROCEDURE: OB [...] biophysical profile score of 8/8. Reading Location: [facility] CC: AMIE Perdomo; Dr. Judie Bella MD Excavating Supervisor: Signed Normal [facility] OB Limited With Biometricson 11-20-2024 OB Limited With Biometrics [facility] Imaging Services [address] [place] [id number] OB Limited With Biometrics MR#: [id number] Acct: [id number] Name: SHU GASPAR Rep #: [id number] : 1990 F 33 From: Jg cantrell MD PCP: Dr. Judie Bella MD Status: REG CLI Study: OB Limited With Biometrics Date of Exam: 11/20 Exam# [id number] Ordering Dr: Carmen Perdomo CNM PROCEDURE: OB [...] 33 weeks and 2 days. Reading Location: [place] [address] CC: AMIE Perdomo; Dr. Judie Bella MD Excavating Supervisor: Signed [facility] Gestational GTT 3HR 100gon 0 11-10-2024 GEST GTT 100gm [facility] Comment on above: Order Comment: Y [...] 11/10/24 1024 Performed By: #### L 500.4710 ####[facility] [address] [place], [place], [address] Quantitative serum or plasma 3 hour gestational glucose tolerance panelOrdered By: Carmen Perdomo on 11-10-2024 Glucose tolerance 3 hours gestational panel See comment [facility] Comment on above: FASTING 88 Col: 07/30 0650GLUCOSE TOLERANCE TEST FOR Reference Interval GESTATIONAL DIABETES Fasting <105 mg/dL 1 hour <190 mg/dl 2 hour <165 mg/dl 3 hour <145 mg/dl 1 HR GLU 165 Col: 11/10/24 0824 2 HR GLU 146 Col: 11/10/2424 3 HR GLU 138 Col: 11/10/24 1024 Absolute lymphocyte countOrd ered By: Carmen Perdomo on 10-30-2024 Lymphocytes Auto (Unsp spec) [#/Vol] 2.12 10*3/uL 0.83-4.51 [facility] Absolute neutrophil countOrd ered By: Carmen Perdomo on 10-30-2024 Neutrophils (Bld) [#/Vol] 7.8 10*3/uL High 2.0-7.7 [facility] Automated lymphocyte count a s percentage of total leukocytesOrdered By: Carmen Perdomo on 10-30-2024 Lymphocytes/100 WBC Auto (Unsp spec) 19.6 % 19-41 [facility] Basophil percentageOrdered B y: Carmen Perdomo on 10-30-2024 Basophils/100 WBC (Bld) 0.5 % 0-1 [facility] CBC W/Diff, Automatedon 10-07 Absolute Lymph 2.12 X10 3/uL Normal 0.83-4.51 [facility] Comment on above: Performed By: #### L 100.0100, L509.8002, L501.0250, L3890.6006 ####[facility] [address] [place], [place], [address] Absolute Neut 7.8 X10 3/uL High 2.0-7.7 [facility] Comment on above: Performed By: #### L 100.0100, L509.8002, L501.0250, L3890.6006 ####[facility] [address] [place], [address] Basophils/100 WBC (Bld) 0.5 % Normal 0-1 [facility] Comment on above: Performed By: #### L 100.0100, L509.8002, L501.0250, L3890.6006 ####[facility] [address] [place], [address] Eosinophils/100 WBC (Bld) 1.7 % Normal 0-5 [facility] Comment on above: Performed By: #### L 100.0100, L509.8002, L501.0250, L3890.6006 ####[facility] [address] [place], [address] Erythrocyte distribution width (RBC) [Ratio] 13.7 % Normal 11.6-14.6 [facility] Comment on above: Performed By: #### L 100.0100, L509.8002, L501.0250, L3890.6006 ####[facility] [address] [place], [address] Hematocrit (Bld) [Volume fraction] 33.3 % Low 37-47 [facility] Comment on above: Performed By: #### L 100.0100, L509.8002, L501.0250, L3890.6006 ####[facility] [address] [place], [address] Hemoglobin (Bld) [Mass/Vol] 11.1 g/dL Low 12.0-15.0 [facility] Comment on above: Performed By: #### L 100.0100, L509.8002, L501.0250, L3890.6006 ####[facility] [address] [place], [address] IG% 0.500 Normal 0.0-0.9 [facility] Comment on above: Result Comment: IG% - Immature Granulocytes (promyelocytes, myelocytes and metamyelocytes) > 1% indicates that a LEFT SHIFT is Present. Performed By: #### L 100.0100, L509.8002, L501.0250, L3890.6006 ####[facility] [address] [place], [address] Lymphocytes/100 WBC (Bld) 19.6 % Normal 19-41 [facility] Comment on above: Performed By: #### L 100.0100, L509.8002, L501.0250, L3890.6006 ####[facility] [address] [place], [address] MCH (RBC) [Entitic mass] 30.0 pg Normal 27.0-32.0 [facility] Comment on above: Performed By: #### L 100.0100, L509.8002, L501.0250, L3890.6006 ####[facility] [address] [place], [address] MCHC (RBC) [Mass/Vol] 33.3 g/dL Normal 32-36 [facility] Comment on above: Performed By: #### L 100.0100, L509.8002, L501.0250, L3890.6006 ####[facility] [address] [place], [address] MCV (RBC) [Entitic vol] 90.0 fL Normal 81-99 [facility] Comment on above: Performed By: #### L 100.0100, L509.8002, L501.0250, L3890.6006 ####[facility] [address] [place], [address] Monocytes/100 WBC (Bld) 5.4 % Normal 0-10 [facility] Comment on above: Performed By: #### L 100.0100, L509.8002, L501.0250, L3890.6006 ####[facility] [address] [place], [address] Neutrophils/100 WBC (Bld) 72.3 % High 47-70 [facility] Comment on above: Performed By: #### L 100.0100, L509.8002, L501.0250, L3890.6006 ####[facility] [address] [place], [address] Nucleated RBC (Bld) [#/Vol] 0 10*3/uL Normal 0-5 [facility] Comment on above: Performed By: #### L 100.0100, L509.8002, L501.0250, L3890.6006 ####[facility] [address] [place], [address] Platelet mean volume (Bld) [Entitic vol] 11.0 fL Normal 6.2-12.0 [facility] Comment on above: Performed By: #### L 100.0100, L509.8002, L501.0250, L3890.6006 ####[facility] [address] [place], [address] Platelets (Bld) [#/Vol] 277 10*3/uL Normal 150-450 [facility] Comment on above: Performed By: #### L 100.0100, L509.8002, L501.0250, L3890.6006 ####[facility] [address] [place], [address] RBC (Bld) [#/Vol] 3.70 10*6/uL Low 4.2-5.4 [facility] Comment on above: Performed By: #### L 100.0100, L509.8002, L501.0250, L3890.6006 ####[facility] [address] [place], [address] RDW SD 44.5 fl High 35.1-43.9 [facility] Comment on above: Performed By: #### L 100.0100, L509.8002, L501.0250, L3890.6006 ####[facility] [address] [place], [address] WBC (Bld) [#/Vol] 10.8 10*3/uL Normal 4.4-11.0 [facility] Comment on above: Performed By: #### L 100.0100, L509.8002, L501.0250, L3890.6006 ####[facility] [address] [place], [address] Eosinophil percentageOrdered By: Carmen Perdomo on 10-30-2024 Eosinophils/100 WBC (Bld) 1.7 % 0-5 [facility] Erythrocyte distribution wid th ratioOrdered By: Carmen Perdomo on 10-30-2024 Erythrocyte distribution width (RBC) [Ratio] 13.7 % 11.6-14.6 [facility] Erythrocyte distribution wid th standard deviationOrdered By: Carmen Perdomo on 10-30-2024 Erythrocyte distribution width (RBC) [Ratio] 44.5 fl High 35.1-43.9 [facility] Glucose Challenge Gest 1H 50 indra 10-30-2024 GLU GEST 50g 1H 138 mg/dL Normal 70-140 [facility] Comment on above: Performed By: #### L 100.0100, L509.8002, L501.0250, L3890.6006 ####[facility] [address] [place], [address] Glucose measurement at 2 nae rs post-dose gestational glucose tolerance testOrdered By: Carmen Perdomo on 10-30-2024 Glucose [Mass/Vol] 138 mg/dL 70-140 [facility] HIVon 10-30-2024 HIV Non-Reactive Normal Nonreactive [facility] Comment on above: Result Comment: Non- Reactive Reactive Repeatedly reactive samples must be confirmed according to CDC recommended confirmatory algorithms. The subresults for either HIVAG or AHIV can be used as an aid in the selection of the confirmation algorithm for reactive samples. Send out specimens with Reactive results to [facility] for confirmation. Order the HIV antibody detection and differentiation: lc#[id number] Performed By: #### L 100.0100, L509.8002, L501.0250, L3890.6006 ####[facility] [address] [place], [address] Hematocrit Auto (Bld) [Volum e fraction]Ordered By: Carmen Perdomo on 10-30-2024 Hematocrit (Bld) [Volume fraction] 33.3 % Low 37-47 [facility] Hemoglobin measurementOrdere d By: Carmen Perdomo on 10-30-2024 Hemoglobin (Bld) [Mass/Vol] 11.1 g/dL Low 12.0-15.0 [facility] Immature granulocytes/100 WB C Auto (Bld)Ordered By: Carmen Perdomo on 10-30-2024 Immature granulocytes/100 WBC (Bld) 0.500 % 0.0-0.9 [facility] Comment on above: IG% - Immature Granu locytes (promyelocytes, myelocytes and metamyelocytes) > 1% indicates that a LEFT SHIFT is Present. Laboratory - Chemistry and C hemistry - challengeOrdered By: Carmen Perdomo on 10-30-2024 Glucose Ql (U) Negative [facility] Laboratory - UrinalysisOrder ed By: Carmen Perdomo on 10-30-2024 Protein Ql (U) Negative [facility] MCV (mean corpuscular volume ) determinationOrdered By: Carmen Perdomo on 10-30-2024 MCV (RBC) [Entitic vol] 90.0 fL 81-99 [facility] Mean corpuscular hemoglobin (MCH) determinationOrdered By: Carmen Perdomo on 10-30-2024 MCH (RBC) [Entitic mass] 30.0 pg 27.0-32.0 [facility] Mean corpuscular hemoglobin concentration (MCHC) determinationOrdered By: Carmen Perdomo on 10-30-2024 MCHC (RBC) [Mass/Vol] 33.3 g/dL 32-36 [facility] Mean platelet volume determi nationOrdered By: Carmen Perdomo on 10-30-2024 Platelet mean volume (Bld) [Entitic vol] 11.0 fL 6.2-12.0 [facility] Monocyte percentageOrdered B y: Carmne Perdomo on 10-30-2024 Monocytes/100 WBC (Bld) 5.4 % 0-10 [facility] Neutrophil percentageOrdered By: Carmen Perdomo on 10-30-2024 Neutrophils/100 WBC (Bld) 72.3 % High 47-70 [facility] No Panel InformationOrdered By: Carmen Perdomo on 10-30-2024 HIV (1&2) Antibody Non-Reactive Nonreactive [facility] Comment on above: Non-ReactiveReactive Repeatedly reactive samples must be confirmed according to CDC recommended confirmatory algorithms. The subresults for either HIVAG or AHIV can be used as an aid in the selection of the confirmation algorithm for reactive samples.Send out specimens with Reactive results to [facility] for confirmation.Order the HIV antibody detection and differentiation: #[id number] Nucleated red blood cell per centageOrdered By: Carmen Perdomo on 10-30-2024 Nucleated RBC/100 WBC (Bld) [Ratio] 0 % 0-5 [facility] Supervisor Scouring [employer] Office Visit Reporton 10-30-2024 Supervisor [employer] Office Visit Report [facility] [address], [address] [place] [address] OFFICE VISIT Date of Service: 10/30/24 MR#: [id number] Acct: [id number] Name: SHU GASPAR Rep #: [id number] : 1990 Provider: AMIE Talley ams Age/Sex: 33/F [place] [facility] [place]: Signed Intake Vital Signs 09/01/24 14:59 10/02/24 09:42 10/30/24 13:49 Height 5 ft 2 in 5 ft 2 in 5 ft 2 in Weight: 265 lb 6 oz 268 lb 5 oz BMI 48.5 49.1 BP 124/83 H 120/83 H Intake Visit Reasons: 28wk ob/glucose 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 (more content not included)... Normal [facility] Platelet countOrdered By: Zuleyma Perdomo on 10-30-2024 Platelets (Bld) [#/Vol] 277 10*3/uL 150-450 [facility] RBC Auto (Bld) [#/Vol]Ordere d By: Carmen Perdomo on 10-30-2024 RBC (Bld) [#/Vol] 3.70 10*6/uL Low 4.2-5.4 [facility] Syphilis Antibodieson 2024 Syphilis Abs Non-Reactive Normal Nonreactive [facility] Comment on above: Performed By: #### L 100.0100, L509.8002, L501.0250, L3890.6006 ####[facility] [address] [place], [address] White blood cell (WBC) count Ordered By: Carmen Perdomo on 10-30-2024 WBC (Bld) [#/Vol] 10.8 10*3/uL 4.4-11.0 [facility] Laboratory - Chemistry and C hemistry - challengeOrdered By: Carmen Perdomo on 10-02-2024 Glucose Ql (U) Negative [facility] Laboratory - UrinalysisOrder ed By: Carmen Perdomo on 10-02-2024 Protein Ql (U) Negative [facility] Supervisor Scouring Pads Office Visit Reporton 10-02-2024 Supervisor Scouring Pads Office Visit Report [facility] [address], [address] [place] [address] OFFICE VISIT Date of Service: 10/02/24 MR#: [id number] Acct: [id number] Name: SHU GASPAR Rep #: [id number] : 1990 Provider: AMIE Talley ams Age/Sex: 33/F [place] [facility] [place]: Signed Intake Vital Signs 07/06/24 15:06 09/01/24 14:59 10/02/24 09:42 Height 5 ft 2 in 5 ft 2 in 5 ft 2 in Weight: 265 lb 6 oz BMI 48.5 BP 124/83 H Intake Visit Reasons: 24 wk ob Chief Complaint: 24wk OB 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 Supervisor Required: No Is patient in pain?: No Allergies No Known Allergies Allergy (Verified 10/02/24 09:40) Medications ???Medication ???Instructions ???Recorded ???Confirmed ???Type ackdlenx-ukc-Fq-FA 1 mg tab PO 01/11/22 10/02/24 History [...] physical activity do you participate in: none baylee/samaritan: None seatbelt use: always do you feel [...] at ne (more content not included)... Normal [facility] Laboratory - Chemistry and C hemistry - challengeOrdered By: Anh Soto on 09-01-2024 Glucose Ql (U) Negative [facility] Laboratory - UrinalysisOrder ed By: Anh Soto on 09-01-2024 Protein Ql (U) Negative [facility] Supervisor Scouring P[employer] Office Visit Reporton 09-01-2024 Supervisor Scouring Pads Office Visit Report [facility] [address], [address] [place] [address] OFFICE VISIT Date of Service: 09/01/24 MR#: [id number] Acct: [id number] Name: SHU GASPAR Rep #: [id number] : 1990 Provider: Dr. Anh Kirk DO Age/Sex: 33/F [place] [facility] [place]: Signed Intake Vital Signs 06/09/24 13:11 08/02/24 11:04 09/01/24 14:57 09/01/24 14:59 Height 5 ft 2 in 5 ft 2 in 5 ft 2 in 5 ft 2 in Weight: 259 lb 2 oz BMI 47.4 BP 119/86 H Intake Visit Reasons: 20wk ob 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 Supervisor Required: No Is patient in pain?: No Allergies No Known Allergies Allergy (Verified 09/01/24 14:57) Medications ???Medication ???Instructions ???Recorded ???Confirmed ???Type rfciuzqd-kpf-Fb-FA 1 mg tab PO 01/11/22 09/01/24 History [...] physical activity do you participate in: none baylee/samaritan: None seatbelt use: always do you feel safe at home: Yes additional social history: : Parth Leggett History 2 Elective abortions Hx Para 1 Spontaneous abortions Hx # Term Pregnancies 1 Ectopic pregnancies Hx # Pregnancies Multiple births # of living children 1 Past Pregnancies Del. Date Name GA/Weeks Outcome Route Bth Weight Infant Gen Labor Lgth Anesthesia Del Locatn Provider FOB 01/05/22 Christian 39 live - full term 7lbs 8oz [...] -???-???-???-???-???-???- ???-???-???-???-???- (more content not included)... Normal [facility] Laboratory - Chemistry and C hemistry - challengeOrdered By: Anh Soto on 08-02-2024 Glucose Ql (U) Negative [facility] Laboratory - UrinalysisOrder ed By: Anh Soto on 08-02-2024 Protein Ql (U) Negative [facility] Supervisor Scouring P[employer] Office Visit Reporton 08-02-2024 Supervisor Scouring Pads Office Visit Report [facility] [address], [facility] [address] [place] [address] OFFICE VISIT Date of Service: 08/02/24 MR#: [id number] Acct: [id number] Name: SHU GASPAR Rep #: [id number] : 1990 Provider: Dr. Anh Kirk, Age/Sex: 33/F [place] [facility] [place]: Signed Intake Vital Signs 06/09/24 13:11 07/06/24 15:06 08/02/24 11:02 08/02/24 11:04 Height 5 ft 2 in 5 ft 2 in 5 ft 2 in 5 ft 2 in Weight: 266 lb BMI 48.6 BP 118/75 Intake Visit Reasons: 16wk ob 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 Supervisor Required: No Is patient in pain?: No Allergies No Known Allergies Allergy (Verified 08/02/24 11:02) Medications ???Medication ???Instructions ???Recorded ???Confirmed ???Type qjqxlmjc-zqr-Qy-FA 1 mg tab PO 01/11/22 08/02/24 History [...] physical activity do you participate in: none baylee/samaritan: None seatbelt use: always do you feel safe at home: Yes additional social history: : Parth Leggett History 2 Elective abortions Hx Para 1 Spontaneous abortions Hx # Term Pregnancies 1 Ectopic pregnancies Hx # Pregnancies Multiple births # of living children 1 Past Pregnancies Del. Date Name GA/Weeks Outcome Route Bth Weight Gen Labor Lgth Anesthesia Del Locatn Provider FOB 01/05/22 Christian 39 live - full term 7lbs 8oz [...] -???-???-???-???-???-???- ???-???-???-???- (more content not included)... Normal [facility] Protein+Creatinine Ratio,Uri neon 08-02-2024 PROT:CRE RATIO 65 mg/g CRE Normal 0-200 [facility] Comment on above: Performed By: #### L 501.0900 ####[facility] [address] [place], [address] Protein (U) [Mass/Vol] 14.0 mg/dL High 0.0-12.0 [facility] Comment on above: Performed By: #### L 501.0900 ####[facility] [address] [place], [address] UR CREAT 215.00 mg/dL Normal 28.00-217.00 [facility] Comment on above: Performed By: #### L 501.0900 ####[facility] [address] [place], [place], [address] Random urine creatinine laureano urement (mass/volume)Ordered By: Tawana Timmons on 08-02-2024 Creatinine Unsp time (U) [Mass/Vol] 215.00 mg/dL 28.00-217.00 [facility] Urine protein measurement (m ass/volume)Ordered By: Tawana Timmons on 08-02-2024 Protein (U) [Mass/Vol] 14.0 mg/dL High 0.0-12.0 [facility] Urine protein/creatinine mas s ratioOrdered By: Tawana Timmons on 08-02-2024 Protein/Creatinine (U) [Mass ratio] 65 mg/g CRE 0-200 [facility] Electrocardiogram reportOrde red By: Arnulfo Gilmore on 07-24-2024 EKG study [facility] Cardiovascular Services [address] [place] [address] 12 Lead EKG 07/21/24 0905 MR#: [id number] Acct: [id number] Name: SHU GASPAR Rep #:[id number] : 1990 33 From: Arnulfo Gilmore MD Attending Dr: Dr. Tawana Timmons MD Status: REG CLI Ordering Dr: Tawana Timmons MD Victor M e: 07/21/24 Location: [facility] Sex: F C Admitted: Test [...] Abnormal ECG Confirmed by ARNULFO GILMORE MD ([id number]), film or videotape editor CESAR NOLAND ([id number]) on 07/24/2024 8:54:36 AM Referred By: Tawana Timmons Confirmed By: ARNULFO GILMORE MD 07/24/24 0854 Date _ Arnulfo Gilmore MD CC: Dr. Judie Bella MD; Dr. Tawana Timmons MD ~ Signed [facility] Work Phone: 12 Lead EKGon 07-21-2024 12 Lead EKG [facility] Cardiovascular Services [address] [place] [address] 12 Lead EKG 07/21/24 0905 MR#: [id number] Acct: [id number] Name: SHU GASPAR Rep #: [id number] : 1990 33 From: Arnulfo Gilmore MD Attending Dr: Dr. Tawana Timmons MD Status: REG CLI Ordering Dr: Tawana Timmons MD Date: 07/21/24 Location: [facility] Sex: F C Admitted: Test [...] Confirmed by PAUL DE LA CRUZ, ARNULFO ([id number]), film or videotape editor CESAR NOLAND ([id number]) on 07/24/2024 8:54:36 AM Referred By: Tawana Timmons Confirmed By: ARNULFO GILMORE MD 07/24/24 0854 Date Arnulfo Gilmore MD CC: Dr. Judie Bella MD; Dr. Tawana Timmons MD Signed Normal [facility] Absolute lymphocyte countOrd ered By: Carmen Perdomo on 07-06-2024 Lymphocytes Auto (Unsp spec) [#/Vol] 2.48 10*3/uL 0.83-4.51 [facility] Absolute neutrophil countOrd ered By: Carmen Perdomo on 07-06-2024 Neutrophils (Bld) [#/Vol] 4.7 10*3/uL 2.0-7.7 [facility] Anion gap in Serum or Plasma Ordered By: Carmen Perdomo on 07-06-2024 Anion gap [Moles/Vol] 12 mmol/L 5- [facility] Automated lymphocyte count a s percentage of total leukocytesOrdered By: Carmen Perdomo on 07-06-2024 Lymphocytes/100 WBC Auto (Unsp spec) 30.4 % - [facility] BUN/creatinine ratioOrdered By: Carmen Perdomo on 07-06-2024 Urea nitrogen/Creatinine [Mass ratio] 19.8 mg/mg 10- [facility] Basophil percentageOrdered B y: Carmen Perdomo on 07-06-2024 Basophils/100 WBC (Bld) 0.6 % 0-1 [facility] Bilirubin, totalOrdered By: Carmen Perdomo on 07-06-2024 Bilirubin [Mass/Vol] mg/dL 0.00-1.30 [facility] CBC W/Diff, Automatedon Absolute Lymph 2.48 X10 3/uL Normal 0.83-4.51 [facility] Comment on above: Performed By: #### B TS, L509.8002, L3890.6102, L3890.6006, L900.0098, L509.4006, L100.0100, L500.4050, L501.9985, L3890.6301 #### [facility] Laboratory [address] [facility] [place], [address] Absolute Neut 4.7 X10 3/uL Normal 2.0-7.7 [facility] Comment on above: Performed By: #### B TS, L509.8002, L3890.6102, L3890.6006, L900.0098, L509.4006, L100.0100, L500.4050, L501.9985, L3890.6301 #### [facility] [address] [facility] [place], [address] Basophils/100 WBC (Bld) 0.6 % Normal 0-1 [facility] Comment on above: Performed By: #### B TS, L509.8002, L3890.6102, L3890.6006, L900.0098, L509.4006, L100.0100, L500.4050, L501.9985, L3890.6301 #### [facility] [address] [place], [address] Eosinophils/100 WBC (Bld) 3.4 % Normal 0-5 [facility] Comment on above: Performed By: #### B TS, L509.8002, L3890.6102, L3890.6006, L900.0098, L509.4006, L100.0100, L500.4050, L501.9985, L3890.6301 #### [facility] [address] [place], [address] Erythrocyte distribution width (RBC) [Ratio] 13.1 % Normal 11.6-14.6 [facility] Comment on above: Performed By: #### B TS, L509.8002, L3890.6102, L3890.6006, L900.0098, L509.4006, L100.0100, L500.4050, L501.9985, L3890.6301 #### [facility] [address] [place], [address] Hematocrit (Bld) [Volume fraction] 34.6 % Low 37-47 [facility] Comment on above: Performed By: #### B TS, L509.8002, L3890.6102, L3890.6006, L900.0098, L509.4006, L100.0100, L500.4050, L501.9985, L3890.6301 #### [facility] [address] [place], [address] Hemoglobin (Bld) [Mass/Vol] 11.6 g/dL Low 12.0-15.0 [facility] Comment on above: Performed By: #### B TS, L509.8002, L3890.6102, L3890.6006, L900.0098, L509.4006, L100.0100, L500.4050, L501.9985, L3890.6301 #### [facility] [address] [place], [address] IG% 0.400 Normal 0.0-0.9 [facility] Comment on above: Result Comment: IG% - Immature Granulocytes (promyelocytes, myelocytes and metamyelocytes) > 1% indicates that a LEFT SHIFT is Present. Performed By: #### B TS, L509.8002, L3890.6102, L3890.6006, L900.0098, L509.4006, L100.0100, L500.4050, L501.9985, L3890.6301 #### [facility] [address] [place], [address] Lymphocytes/100 WBC (Bld) 30.4 % Normal 19-41 [facility] Comment on above: Performed By: #### B TS, L509.8002, L3890.6102, L3890.6006, L900.0098, L509.4006, L100.0100, L500.4050, L501.9985, L3890.6301 #### [facility] [address] [place], [address] MCH (RBC) [Entitic mass] 29.7 pg Normal 27.0-32.0 [facility] Comment on above: Performed By: #### B TS, L509.8002, L3890.6102, L3890.6006, L900.0098, L509.4006, L100.0100, L500.4050, L501.9985, L3890.6301 #### [facility] [address] [place], [address] MCHC (RBC) [Mass/Vol] 33.5 g/dL Normal 32-36 [facility] Comment on above: Performed By: #### B TS, L509.8002, L3890.6102, L3890.6006, L900.0098, L509.4006, L100.0100, L500.4050, L501.9985, L3890.6301 #### [facility] [address] [place], [address] MCV (RBC) [Entitic vol] 88.7 fL Normal 81-99 [facility] Comment on above: Performed By: #### B TS, L509.8002, L3890.6102, L3890.6006, L900.0098, L509.4006, L100.0100, L500.4050, L501.9985, L3890.6301 #### [facility] [address] [place], [address] Monocytes/100 WBC (Bld) 7.6 % Normal 0-10 [facility] Comment on above: Performed By: #### B TS, L509.8002, L3890.6102, L3890.6006, L900.0098, L509.4006, L100.0100, L500.4050, L501.9985, L3890.6301 #### [facility] [address] [place], [address] Neutrophils/100 WBC (Bld) 57.6 % Normal 47-70 [facility] Comment on above: Performed By: #### B TS, L509.8002, L3890.6102, L3890.6006, L900.0098, L509.4006, L100.0100, L500.4050, L501.9985, L3890.6301 #### [facility] [address] [place], [address] Nucleated RBC (Bld) [#/Vol] 0 10*3/uL Normal 0-5 [facility] Comment on above: Performed By: #### B TS, L509.8002, L3890.6102, L3890.6006, L900.0098, L509.4006, L100.0100, L500.4050, L501.9985, L3890.6301 #### [facility] [address] [place], [address] Platelet mean volume (Bld) [Entitic vol] 10.8 fL Normal 6.2-12.0 [facility] Comment on above: Performed By: #### B TS, L509.8002, L3890.6102, L3890.6006, L900.0098, L509.4006, L100.0100, L500.4050, L501.9985, L3890.6301 #### [facility] [address] [place], [address] Platelets (Bld) [#/Vol] 283 10*3/uL Normal 150-450 [facility] Comment on above: Performed By: #### B TS, L509.8002, L3890.6102, L3890.6006, L900.0098, L509.4006, L100.0100, L500.4050, L501.9985, L3890.6301 #### [facility] [address] [place], [address] RBC (Bld) [#/Vol] 3.90 10*6/uL Low 4.2-5.4 [facility] Comment on above: Performed By: #### B TS, L509.8002, L3890.6102, L3890.6006, L900.0098, L509.4006, L100.0100, L500.4050, L501.9985, L3890.6301 #### [facility] [address] [place], [address] RDW SD 42.6 fl Normal 35.1-43.9 [facility] Comment on above: Performed By: #### B TS, L509.8002, L3890.6102, L3890.6006, L900.0098, L509.4006, L100.0100, L500.4050, L501.9985, L3890.6301 #### [facility] [address] [place], [address] WBC (Bld) [#/Vol] 8.2 10*3/uL Normal 4.4-11.0 [facility] Comment on above: Performed By: #### B TS, L509.8002, L3890.6102, L3890.6006, L900.0098, L509.4006, L100.0100, L500.4050, L501.9985, L3890.6301 #### [facility] [address] [place], [address] Carbon dioxide, total [Moles /volume] in Central venous bloodOrdered By: Carmen Perdomo on 07-06-2024 CO2 [Moles/Vol] 22.8 mmol/L 21.0-32.0 [facility] Chloride assayOrdered By: Zuleyma Perdomo on 07-06-2024 Chloride [Moles/Vol] 103 mmol/L 98-108 [facility] Comprehensive Metabolic Prof ilon 07-06-2024 Albumin [Mass/Vol] 3.6 g/dL Normal 3.5-5.0 [facility] Comment on above: Performed By: #### B TS, L509.8002, L3890.6102, L3890.6006, L900.0098, L509.4006, L100.0100, L500.4050, L501.9985, L3890.6301 ####[facility] [address] [place], [address] Albumin/Globulin [Mass ratio] 1.3 {ratio} Normal 0.9-2.4 [facility] Comment on above: Performed By: #### B TS, L509.8002, L3890.6102, L3890.6006, L900.0098, L509.4006, L100.0100, L500.4050, L501.9985, L3890.6301 ####[facility] [address] [place], [address] ALK PHOS 58 U/L Normal 35-104 [facility] Comment on above: Performed By: #### B TS, L509.8002, L3890.6102, L3890.6006, L900.0098, L509.4006, L100.0100, L500.4050, L501.9985, L3890.6301 ####[facility] [address] [place], [place], [phone](723) ALT [Catalytic activity/Vol] 15 U/L Normal <=34 [facility] Comment on above: Performed By: #### B TS, L509.8002, L3890.6102, L3890.6006, L900.0098, L509.4006, L100.0100, L500.4050, L501.9985, L3890.6301 ####[facility] [address] [place], [place], [phone]19) AST [Catalytic activity/Vol] 16 U/L Normal <=31 [facility] Comment on above: Performed By: #### B TS, L509.8002, L3890.6102, L3890.6006, L900.0098, L509.4006, L100.0100, L500.4050, L501.9985, L3890.6301 ####[facility] [address] [place], [place], [phone](350) BUN/CRE 19.8 RATIO Normal 10-20 [facility] Comment on above: Performed By: #### B TS, L509.8002, L3890.6102, L3890.6006, L900.0098, L509.4006, L100.0100, L500.4050, L501.9985, L3890.6301 ####[facility] [address] [place], [place], [id number] Calcium [Mass/Vol] 9.3 mg/dL Normal 7.6-11.0 [facility] Comment on above: Performed By: #### B TS, L509.8002, L3890.6102, L3890.6006, L900.0098, L509.4006, L100.0100, L500.4050, L501.9985, L3890.6301 ####[facility] [address] [place], [address] Chloride [Moles/Vol] 103 mmol/L Normal 98-108 [facility] Comment on above: Performed By: #### B TS, L509.8002, L3890.6102, L3890.6006, L900.0098, L509.4006, L100.0100, L500.4050, L501.9985, L3890.6301 ####[facility] [address] [place], [address] CO2 [Moles/Vol] 22.8 mmol/L Normal 21.0-32.0 [facility] Comment on above: Performed By: #### B TS, L509.8002, L3890.6102, L3890.6006, L900.0098, L509.4006, L100.0100, L500.4050, L501.9985, L3890.6301 ####[facility] [address] [place], [place], [phone] Creatinine [Mass/Vol] 0.53 mg/dL Low 0.70-1.20 [facility] Comment on above: Performed By: #### B TS, L509.8002, L3890.6102, L3890.6006, L900.0098, L509.4006, L100.0100, L500.4050, L501.9985, L3890.6301 ####[facility] [address] [place], [address] GAP 12 Normal 5-15 [facility] Comment on above: Performed By: #### B TS, L509.8002, L3890.6102, L3890.6006, L900.0098, L509.4006, L100.0100, L500.4050, L501.9985, L3890.6301 ####[facility] [address] [place], [address] GFR/1.73 sq M.predicted among non-blacks MDRD (S/P/Bld) [Vol rate/Area] 124 mL/min/{1.73_m2} Normal >60 [facility] Comment on above: Result Comment: mL/m in/1.73m2 CKD-EPI Creatinine Equation (2020) Performed By: #### B TS, L509.8002, L3890.6102, L3890.6006, L900.0098, L509.4006, L100.0100, L500.4050, L501.9985, L3890.6301 ####[facility] [address] [place], [address] Globulin (S) [Mass/Vol] 2.7 g/dL Normal 2.2-4.2 [facility] Comment on above: Performed By: #### B TS, L509.8002, L3890.6102, L3890.6006, L900.0098, L509.4006, L100.0100, L500.4050, L501.9985, L3890.6301 ####[facility] [address] [place], [address] Glucose [Mass/Vol] 99 mg/dL Normal 70-99 [facility] Comment on above: Performed By: #### B TS, L509.8002, L3890.6102, L3890.6006, L900.0098, L509.4006, L100.0100, L500.4050, L501.9985, L3890.6301 ####[facility] [address] [place], [address] Potassium [Moles/Vol] 3.8 mmol/L Normal 3.3-5.1 [facility] Comment on above: Performed By: #### B TS, L509.8002, L3890.6102, L3890.6006, L900.0098, L509.4006, L100.0100, L500.4050, L501.9985, L3890.6301 ####[facility] [address] [place], [address] Sodium [Moles/Vol] 138 mmol/L Normal 133-145 [facility] Comment on above: Performed By: #### B TS, L509.8002, L3890.6102, L3890.6006, L900.0098, L509.4006, L100.0100, L500.4050, L501.9985, L3890.6301 ####[facility] [address] [place], [address] T BILI < 0.15 Normal 0.00-1.30 [facility] Comment on above: Performed By: #### B TS, L509.8002, L3890.6102, L3890.6006, L900.0098, L509.4006, L100.0100, L500.4050, L501.9985, L3890.6301 ####[facility] [address] [place], [address] T PROT 6.3 g/dL Normal 5.9-8.4 [facility] Comment on above: Performed By: #### B TS, L509.8002, L3890.6102, L3890.6006, L900.0098, L509.4006, L100.0100, L500.4050, L501.9985, L3890.6301 ####[facility] [address] [place], [address] Urea nitrogen [Mass/Vol] 10 mg/dL Normal 4-19 [facility] Comment on above: Performed By: #### B TS, L509.8002, L3890.6102, L3890.6006, L900.0098, L509.4006, L100.0100, L500.4050, L501.9985, L3890.6301 ####[facility] [address] [place], [place], [phone] Eosinophil percentageOrdered By: Carmen Perdomo on 07-06-2024 Eosinophils/100 WBC (Bld) 3.4 % 0-5 [facility] Erythrocyte distribution wid th ratioOrdered By: Carmen Perdomo on 07-06-2024 Erythrocyte distribution width (RBC) [Ratio] 13.1 % 11.6-14.6 [facility] Erythrocyte distribution wid th standard deviationOrdered By: Carmen Perdomo on 07-06-2024 Erythrocyte distribution width (RBC) [Ratio] 42.6 fl 35.1-43.9 [facility] Glomerular filtration rate ( GFR) estimation/1.73 sq m using serum, plasma, or whole bOrdered By: Carmen Perdomo on 07-06-2024 GFR/1.73 sq M.predicted among non-blacks MDRD (S/P/Bld) [Vol rate/Area] 124 mL/min/{1.73_m2} >60 [facility] Comment on above: mL/min/1.73m2 CKD-EP I Creatinine Equation (2020) HIVon 07-06-2024 HIV Non-Reactive Normal Nonreactive [facility] Comment on above: Result Comment: Non- Reactive Reactive Repeatedly reactive samples must be confirmed according to CDC recommended confirmatory algorithms. The subresults for either HIVAG or AHIV can be used as an aid in the selection of the confirmation algorithm for reactive samples. Send out specimens with Reactive results to [facility] for confirmation. Order the HIV antibody detection and differentiation: lc#[id number] Performed By: #### B TS, L509.8002, L3890.6102, L3890.6006, L900.0098, L509.4006, L100.0100, L500.4050, L501.9985, L3890.6301 ####[facility] [address] [place], [place], [id number] Hematocrit Auto (Bld) [Volum e fraction]Ordered By: Carmen Predomo on 07-06-2024 Hematocrit (Bld) [Volume fraction] 34.6 % Low 37-47 [facility] Hemoglobin A1con 07-06-2024 HbA1c (Bld) [Mass fraction] 5.0 % Normal <=5.6 [facility] Comment on above: Result Comment: Norm al < 5.7 % Prediabetic 5.7 - 6.4 % Diabetic >or= 6.5 % Please note range changes. Performed By: #### B TS, L509.8002, L3890.6102, L3890.6006, L900.0098, L509.4006, L100.0100, L500.4050, L501.9985, L3890.6301 ####[facility] [address] [place], [address] Hemoglobin A1c percentageOrd ered By: Carmen Perdomo on 07-06-2024 HbA1c (Bld) [Mass fraction] 5.0 % <5.7 [facility] Comment on above: Normal < 5.7 % Predi abetic 5.7 - 6.4 % Diabetic >or= 6.5 % Please note range changes. Hemoglobin measurementOrdere d By: Carmen Perdomo on 07-06-2024 Hemoglobin (Bld) [Mass/Vol] 11.6 g/dL Low 12.0-15.0 [facility] Hepatitis C Antibodyon 07-06 Hepatitis C Ab Non-Reactive Normal Nonreactive [facility] Comment on above: Result Comment: Reac tive: Presumptive evidence of antibodies to HCV. Follow CDC recommendations for supplemental testing. Non-Reactive: Antibodies to HCV were not detected; does not exclude the possibility of exposure to HCV Reactive Results are presumptive evidence of antibodies to HCV. Follow CDC recommendations for supplemental testing. Order confirmation testing: HCV Quant by PCR testing - HCVPCR #[id number] Non Reactive: < 0.8 Equivocal: >/= 0.8 to < 1.0 Reactive: >/= 1.0 The CDC requires that a reactive/equivocal HCV antibody result be sent out for confirmation. HCV Quant by PCR testing. Performed By: #### B TS, L509.8002, L3890.6102, L3890.6006, L900.0098, L509.4006, L100.0100, L500.4050, L501.9985, L3890.6301 ####[facility] [address] [place], [place], [phone] Immature granulocytes/100 WB C Auto (Bld)Ordered By: Carmen Perdomo on 07-06-2024 Immature granulocytes/100 WBC (Bld) 0.400 % 0.0-0.9 [facility] Comment on above: IG% - Immature Granu locytes (promyelocytes, myelocytes and metamyelocytes) > 1% indicates that a LEFT SHIFT is Present. L3890.6102on 07-06-2024 HEP B Surf Ag Non-Reactive Normal Nonreactive [facility] Comment on above: Result Comment: Reac tive: Presumptive evidence of HBV. Repeatedly reactive samples must be confirmed using a neutralization test ([employer] HBsAg Confirmatory Test) Non-Reactive: HBsAg not detected; does not exclude the possibility of exposure to HBV Performed By: #### B TS, L509.8002, L3890.6102, L3890.6006, L900.0098, L509.4006, L100.0100, L500.4050, L501.9985, L3890.6301 ####[facility] [address] [place], [place], [id number] L509.4006on 07-06-2024 Rubella IgG REAC Normal Nonreactive [facility] Comment on above: Result Comment: Anti body Result: Interpretation Non-Reactive: Non-Immune Reactive: Immune The following results were obtained with the [employer] Rubella IgG assay. Results from assays of other manufacturers cannot be used interchangeably. Performed By: #### B TS, L509.8002, L3890.6102, L3890.6006, L900.0098, L509.4006, L100.0100, L500.4050, L501.9985, L3890.6301 ####[facility] [address] [place], [place], [id number] Laboratory - Chemistry and C hemistry - challengeOrdered By: Carmen Perdomo on 07-06-2024 AST [Catalytic activity/Vol] 16 U/L <32 [facility] - Microbiology an d Antimicrobial susceptibilityOrdered By: Carmen Perdomo on 07-06-2024 HBV surface Ag Ql (S) Non-Reactive Nonreactive [facility] Comment on above: Reactive: Presumptiv e evidence of HBV. Repeatedly reactive samples must be confirmed using a neutralization test ([employer] HBsAg Confirmatory Test)Non-Reactive: HBsAg not detected; does not exclude the possibility of exposure to HBV MCV (mean corpuscular volume ) determinationOrdered By: Carmen Perdomo on 07-06-2024 MCV (RBC) [Entitic vol] 88.7 fL 81-99 [facility] Mean corpuscular hemoglobin (MCH) determinationOrdered By: Carmen Perdomo on 07-06-2024 MCH (RBC) [Entitic mass] 29.7 pg 27.0-32.0 [facility] Mean corpuscular hemoglobin concentration (MCHC) determinationOrdered By: Carmen Perdomo on 07-06-2024 MCHC (RBC) [Mass/Vol] 33.5 g/dL 32-36 [facility] Mean platelet volume determi nationOrdered By: Carmen Perdomo on 07-06-2024 Platelet mean volume (Bld) [Entitic vol] 10.8 fL 6.2-12.0 [facility] Monocyte percentageOrdered B y: Carmen Perdomo on 07-06-2024 Monocytes/100 WBC (Bld) 7.6 % 0-10 [facility] NATERAon 07-06-2024 NATURA SEE SCANNED REPORT Normal [facility] Comment on above: Performed By: #### B TS, L509.8002, L3890.6102, L3890.6006, L900.0098, L509.4006, L100.0100, L500.4050, L501.9985, L3890.6301 ####[facility] [address] [place], [place], [phone] Neutrophil percentageOrdered By: Carmen Perdomo on 07-06-2024 Neutrophils/100 WBC (Bld) 57.6 % 47-70 [facility] No Panel InformationOrdered By: Carmen Perdomo on 07-06-2024 HIV (1&2) Antibody Non-Reactive Nonreactive [facility] Comment on above: Non-ReactiveReactive Repeatedly reactive samples must be confirmed according to CDC recommended confirmatory algorithms. The subresults for either HIVAG or AHIV can be used as an aid in the selection of the confirmation algorithm for reactive samples.Send out specimens with Reactive results to [facility] for confirmation.Order the HIV antibody detection and differentiation: #[id number] Nucleated red blood cell per centageOrdered By: Carmen Perdomo on 07-06-2024 Nucleated RBC/100 WBC (Bld) [Ratio] 0 % 0-5 [facility] Supervisor [employer] Office Visit Reporton 07-06-2024 Supervisor [employer] Office Visit Report [facility] [address], [address] [place] [address] OFFICE VISIT Date of Service: 07/06/24 MR#: [id number] Acct: [id number] Name: SHU GASPAR Rep #: [id number] : 1990 Provider: Dr. Tawana fajardo MD Age/Sex: 33/F [place] [facility] [place]: Signed Intake Vital Signs 05/03/24 12:07 06/09/24 13:11 07/06/24 15:06 Height 5 ft 2 in 5 ft 2 in 5 ft 2 in Weight: 251 lb 8 oz BMI 46.0 BP 123/85 H Intake Visit Reasons: 12wk OB 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 Supervisor Required: No Is patient in pain?: No Allergies No Known Allergies Allergy (Verified 07/06/24 15:07) Medications ???Medication ???Instructions ???Recorded ???Confirmed ???Type qngkmebb-nhr-Tu-FA 1 mg tab PO 01/11/22 07/06/24 History tablet metformin 500 mg tablet mg PO 04/21/23 07/06/24 History escitalopram oxalate 20 mg tablet 20 mg PO QDAY 03/17/24 07/06/24 H istory (Lexapro) metoprolol succinate 100 mg 100 mg PO BID 03/17/24 07/06/24 Hi story tablet,extended release 24 hr Last Menstrual Period: 04/09/24 Zika: Zika virus screening: Negative : Yes PFSH PFS Medical History (Updated 07/06/24 @ 15:39 by [...] physical activity do you participate in: none baylee/samaritan: None seatbelt use: always do you feel [...] with d (more content not included)... Normal [facility] Platelet countOrdered By: Zuleyma Perdomo on 07-06-2024 Platelets (Bld) [#/Vol] 283 10*3/uL 150-450 [facility] Potassium measurement (mass/ volume)Ordered By: Carmen Perdomo on 07-06-2024 Potassium (Unsp spec) [Mass/Vol] 3.8 mmol/L 3.3-5.1 [facility] RBC Auto (Bld) [#/Vol]Ordere d By: Carmen Perdomo on 07-06-2024 RBC (Bld) [#/Vol] 3.90 10*6/uL Low 4.2-5.4 [facility] Serum creatinine measurement (mass/volume)Ordered By: Carmen Perdomo on 07-06-2024 Creatinine [Mass/Vol] 0.53 mg/dL Low 0.70-1.20 [facility] Serum globulin measurementOr dered By: Carmen Perdomo on 07-06-2024 Globulin (S) [Mass/Vol] 2.7 g/dL 2.2-4.2 [facility] Serum glucose measurement (m ass/volume)Ordered By: Carmen Perdomo on 07-06-2024 Glucose [Mass/Vol] 99 mg/dL 70-99 [facility] Serum or plasma alanine agarwal otransferase (ALT) measurementOrdered By: Carmen Perdomo on 07-06-2024 ALT [Catalytic activity/Vol] 15 U/L <35 [facility] Serum or plasma albumin laureano urement (mass/volume)Ordered By: Carmen Perdomo on 07-06-2024 Albumin [Mass/Vol] 3.6 g/dL 3.5-5.0 [facility] Serum or plasma albumin/glob ulin mass ratioOrdered By: Carmen Perdomo on 07-06-2024 Albumin/Globulin [Mass ratio] 1.3 {ratio} 0.9-2.4 [facility] Serum or plasma alkaline aylin sphatase measurementOrdered By: Carmen Perdomo on 07-06-2024 ALP [Catalytic activity/Vol] 58 U/L 35-104 [facility] Serum or plasma calcium laureano urement (mass/volume)Ordered By: Carmen Perdomo on 07-06-2024 Calcium [Mass/Vol] 9.3 mg/dL 7.6-11.0 [facility] Serum or plasma urea nitroge n measurement (mass/volume)Ordered By: Carmen Perdomo on 07-06-2024 Urea nitrogen [Mass/Vol] 10 mg/dL 4-19 [facility] Sodium levelOrdered By: Wandy Perdomo on 07-06-2024 Sodium [Moles/Vol] 138 mmol/L 133-145 [facility] Syphilis Antibodieson 2024 Syphilis Abs Non-Reactive Normal Nonreactive [facility] Comment on above: Performed By: #### B TS, L509.8002, L3890.6102, L3890.6006, L900.0098, L509.4006, L100.0100, L500.4050, L501.9985, L3890.6301 ####[facility] [address] [place], [place], [phone] Total proteinOrdered By: Viraj Perdomo on 07-06-2024 Protein [Mass/Vol] 6.3 g/dL 5.9-8.4 [facility] Type AND Screenon 07-06-2024 ABO and Rh group Nom (Bld) Blood group A Rh(D) positive Normal [facility] Comment on above: Order Comment: PN Performed By: #### B TS, L509.8002, L3890.6102, L3890.6006, L900.0098, L509.4006, L100.0100, L500.4050, L501.9985, L3890.6301 ####[facility] [address] [place], [place], [phone] White blood cell (WBC) count Ordered By: Carmen Perdomo on 07-06-2024 WBC (Bld) [#/Vol] 8.2 10*3/uL 4.4-11.0 [facility] Chlamydia/GC MCKENZIE aptimaon CHLAMY,NUC ACID Negative Normal Negative [facility] [facility] Comment on above: Performed By: #### M 100.2200, L501.0900, L7000.1800 #### [facility] [address] [place], [place], [address] GC BY NUC ACID Negative Normal Negative [facility] Comment on above: Result Comment: Perf ormed at: =G - [facility] [address] [id number] Coremaker Floor: Abbie Siu MD, Phone: [phone] Performed By: #### M 100.2200, L501.0900, L7000.1800 #### [facility] [address] [place], [place], [id number] Urine Cultureon 06-12-2024 URC Below infection leve l. Mixed Gram Pos Gram Neg Org Seth Count 1000-10,000 MIXC Mixed contaminants. Submit a new specimen if indicated. Normal [facility] Comment on above: Performed By: #### M 100.2200, L501.0900, L7000.1800 #### [facility] [address] [place], [place], [id number] Chlamydia trachomatis rRNA d etection by probe and target amplification methodOrdered By: Carmen Perdomo on 06-09-2024 C. trachomatis rRNA MCKENZIE+probe Ql (Unsp spec) Negative Negative [facility] Creatinine Unsp time (U) [Ma ss/Vol]Ordered By: Carmen Perdomo on 06-09-2024 Creatinine (U) [Mass/Vol] 202.00 mg/dL 28.00-217.00 [facility] Neisseria gonorrhoeae nuclei c acid detection by amplified probe techniqueOrdered By: Carmen Perdomo on 06-09-2024 N. gonorrhoeae DNA MCKENZIE+probe Ql (Unsp spec) Negative Negative [facility] Comment on above: Performed at: =G - L [facility] [address] [id number] Director: Abbie Siu MD, Phone: [phone] Supervisor Scouring Pads Office Visit Reporton 06-09-2024 Supervisor Scouring Pads Office Visit Report [facility]'[address], [address] [place] [address] OFFICE VISIT Date of Service: 06/09/24 MR#: [id number] Acct: [id number] Name: SHU GASPAR Rep #: [id number] : 1990 Provider: AMIE Talley ams Age/Sex: 33/F [place] [facility] [place]: Signed Intake Vital Signs 05/03/24 12:07 06/09/24 13:11 Height 5 ft 2 in 5 ft 2 in Weight: 254 lb 8 oz BMI 46.5 BP 125/80 H Intake Visit Reasons: NOB LMP 2/2 Chief Complaint: New OB 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 Supervisor Required: No Is patient in pain?: No Allergies No Known Allergies Allergy (Verified 06/09/24 13:06) Medications ???Medication ???Instructions ???Recorded ???Confirmed ???Type suednerc-fsi-Zp-FA 1 mg tab PO 01/11/22 06/09/24 History [...] physical activity do you participate in: none baylee/samaritan: None seatbelt use: always do you feel safe at home: Yes additional social history: : Parth Leggett History 2 Elective abortions Hx Para 1 Spontaneous abortions Hx # Term Pregnancies 1 Ectopic pregnancies Hx # Pregnancies Multiple births # of living children 1 Past Pregnancies Del. Date Name GA/Weeks Outcome Route Bth Weight Gen Labor Lgth Anesthesia Del Locatn Provider FOB 01/05/22 Christian 39 live - full term 7lbs 8oz [...] dates. Acce (more content not included)... Normal [facility] Protein+Creatinine Ratio,Uri neon 06-09-2024 PROT:CRE RATIO 119 mg/g CRE Normal 0-200 [facility] Comment on above: Performed By: #### M 100.2200, L501.0900, L7000.1800 #### [facility] [address] [place], [address] Protein (U) [Mass/Vol] 24.0 mg/dL High 0.0-12.0 [facility] Comment on above: Performed By: #### M 100.2200, L501.0900, L7000.1800 #### [facility] [address] [place], [address] UR CREAT 202.00 mg/dL Normal 28.00-217.00 [facility] Comment on above: Performed By: #### M 100.2200, L501.0900, L7000.1800 #### [facility] [address] [place], [address] Protein/Creatinine (U) [Mass ratio]Ordered By: Carmen Perdomo on 06-09-2024 Urine Protein/Creatinine Ratio 119 mg/g CRE 0-200 [facility] Random urine creatinine laureano urement (mass/volume)Ordered By: Carmen Perdomo on 06-09-2024 Creatinine Unsp time (U) [Mass/Vol] 202.00 mg/dL 28.00-217.00 [facility] Urine cultureOrdered By: Viraj Perdomo on 06-09-2024 Bacteria identified Cx Nom (U) Mixed Gram Pos & Gram Neg Org Abnormal [facility] Urine protein measurement (m ass/volume)Ordered By: Carmen Perdomo on 06-09-2024 Protein (U) [Mass/Vol] 24.0 mg/dL High 0.0-12.0 [facility] Urine protein/creatinine mas s ratioOrdered By: Carmen Perdomo on 06-09-2024 Protein/Creatinine (U) [Mass ratio] 119 mg/g CRE 0-200 [facility] PAP IG HPV APTIMA 16/18,45on 05-08-2024 ADEQ Comment Normal . [facility] Comment on above: Order Comment: Speci men Comment: [id number] Specimen Comment: No. of containers..01 ThinPrep Vial Result Comment: Sati sfactory for evaluation. Endocervical and/or squamous metaplastic cells (endocervical component) are present. Performed By: #### L 7400.0280 #### [facility] [address] [place], [address] COMM . Normal . [facility] Comment on above: Order Comment: Speci men Comment: [id number] Specimen Comment: No. of containers..01 ThinPrep Vial Performed By: #### L 7400.0280 #### [facility] [address] [place], [address] COMMENT Comment Normal . [facility] Comment on above: Order Comment: Speci men Comment: [id number] Specimen Comment: No. of containers..01 ThinPrep Vial Result Comment: This liquid based ThinPrep(R) pap test was screened with the use of an image guided system. Performed By: #### L 7400.0280 #### [facility] [address] [place], [place], [id number] DIAG Comment Normal . [facility] Comment on above: Order Comment: Speci men Comment: [id number] Specimen Comment: No. of containers..01 ThinPrep Vial Result Comment: NEGA TIVE FOR INTRAEPITHELIAL LESION OR MALIGNANCY. CELLULAR CHANGES ASSOCIATED WITH INFLAMMATION ARE PRESENT. Performed By: #### L 7400.0280 #### [facility] [address] [place], [address] HPV APTIMA, HR Negative Normal Negative [facility] Comment on above: Order Comment: Speci men Comment: [id number] Specimen Comment: No. of containers..01 ThinPrep Vial Result Comment: This nucleic acid amplification test detects fourteen high- risk HPV types (16,18,31,33,35,39,45,51,52,56,58,59,66,68) without differentiation. Performed By: #### L 7400.0280 #### [facility] [address] [place], [place], [address] HPV Genna Rfx Comment Normal . [facility] Comment on above: Order Comment: Speci men Comment: [id number] Specimen Comment: No. of containers..01 ThinPrep Vial Result Comment: Crit eria not met, HPV Genotype not performed. Performed at: - [address] [id number] Coremaker Floor: Abbie Siu MD, Phone: [phone] Performed at: =[address] [id number] Coremaker Floor: Abbie Siu MD, Phone: [phone] Performed By: #### L 7400.0280 #### [facility] [address] [place], [address] PAPSMR Comment Normal . [facility] Comment on above: Order Comment: Speci men Comment: [id number] Specimen Comment: No. of containers..01 ThinPrep Vial Result Comment: The Pap smear is a screening test designed to aid in the detection of premalignant and malignant conditions of the uterine cervix. It is not a diagnostic procedure and should not be used as the sole means of detecting cervical cancer. Both false-positive and false-negative reports do occur. Performed By: #### L 7400.0280 #### [facility] [address] [place], [address] PERFORM Comment Normal . [facility] Comment on above: Order Comment: Speci men Comment: [id number] Specimen Comment: No. of containers..01 ThinPrep Vial Result Comment: Hipolito Fields, Judicial Reporter Performed By: #### L 7400.0280 #### [facility] [address] [place], [address] Cervical or vaginal specimen microscopic examination by liquid based cytology (reportOrdered By: Carmen Perdomo on 05-03-2024 Cytology report Cyto stain.thin prep Doc (Cvx/Vag) Comment . [facility] Comment on above: Criteria not met, HP V Genotype not performed.Performed at: - [address] [id number] Director: Abbie Siu MD, Phone: [phone] at: =[facility] [id number] Director: Abbie Siu MD, Phone: [phone] Cervical or vagninal specime n microscopic examination by cytology stain (reported asOrdered By: Carmen Perdomo on 05-03-2024 Cytology report Cyto stain Doc (Cvx/Vag) Comment . [facility] Comment on above: The Pap smear is a s creening test designed to aid in thedetection of premalignant and malignant conditions of theuterine cervix. It is not a diagnostic procedure andshould not be used as the sole means of detecting cervicalcancer. Both false-positive and false-negative reports dooccur. Batch Heat Treat Operator Cyto stain Nom (C vx/Vag) [ID]Ordered By: Carmen Perdomo on 05-03-2024 Pap Smear Performed By Comment . [facility] Comment on above: Soco Fields, Cyto technologist Cytology report Cyto stain D oc (Cvx/Vag)Ordered By: Carmen Perdomo on 05-03-2024 Thin Prep Pap Smear Comment . [facility] Comment on above: The Pap smear [...] 05-03-2024 HPV Genotype Special Info Comment . [facility] Comment on above: Criteria not met, HP V Genotype not performed.Performed at: - [facility] [id number] Director: Abbie Siu MD, Phone: [phone] at: = - [facility] [address] [id number] Director: Abbie Siu MD, Phone: [phone] Detection in cervical specim en of any of human papilloma virus (HPV) 16, 18, 31, 33,Ordered By: Carmen Perdomo on 05-03-2024 HPV 16+18+31+33+35+39+45+5 1+52+56+58+59+66+68 DNA Probe+sig amp Ql (Cvx) Negative Negative [facility] Comment on above: This nucleic acid am plification test detects fourteen high- risk HPV types (16,18,31,33,35,39,45,51,52,56,58,59,66,68)without differentiation. HPV 16+18+31+33+35+39+45+51+ 52+56+58+59+66+68 DNA Probe+sig amp Ql (Cvx)Ordered By: Carmen Perdomo on 05-03-2024 Human Papillomavirus High Risk Negative Negative [facility] Comment on above: This nucleic acid am plification test detects fourteen high- risk HPV types (16,18,31,33,35,39,45,51,52,56,58,59,66,68)without differentiation. Image-guided ThinPrep PapOrd ered By: Carmen Perdomo on 05-03-2024 Pap Smear Note Comment . [facility] Comment on above: This liquid based Th inPrep(R) pap test was screened withthe use of an image guided system. Image-guided liquid-based Pa pOrdered By: Carmen Perdomo on 05-03-2024 Pap Smear Diagnosis Comment . [facility] Comment on above: NEGATIVE FOR INTRAEP ITHELIAL LESION OR MALIGNANCY.CELLULAR CHANGES ASSOCIATED WITH INFLAMMATION ARE PRESENT. Laboratory - CytologyOrdered By: Carmen Perdomo on 05-03-2024 Batch Heat Treat Operator Cyto stain Nom (Cvx/Vag) [ID] Comment . [facility] Comment on above: Soco Fields, Cyto technologist Laboratory - Miscellaneous t estsOrdered By: Carmen Perdomo on 05-03-2024 Service comment (Unsp spec) [Interp] . . [facility] No Panel InformationOrdered By: Carmen Perdomo on 05-03-2024 Pap Smear Specimen Adequacy Comment . [facility] Comment on above: Satisfactory for rosalinda luation. Endocervical and/or squamous metaplasticcells (endocervical component) are present. 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: No Is patient in pain?: No Allergies No Known Allergies Allergy (Verified 05/03/24 12:06) Medications ???Medication ???Instructions ???Recorded ???Confirmed ???Type jxdansrv-iub-Sw-FA 1 mg tab PO 01/11/22 05/03/24 History [...] History (Updated 04/21/23 @ 11:13 by Janay Bsos) History of laparoscopic cholecystectomy Family History (Updated [...] 1 current occupational status: employed current occupation: [employer] pets and animals: Yes pets and animals: [...] physical activity do you participate in: none baylee/samaritan: None seatbelt use: always do you feel [...] Vagina: no (more content not included)... Normal [facility] Service comment (Unsp spec) [Interp]Ordered By: Carmen Perdomo on 05-03-2024 Pap Smear Comment (3) . [facility] .Auto Diffon 08-05-2023 Basophil, Absolute 0.1 10 3/mcL Normal 0.0-0.2 [facility] ([place]) Comment on above: Performed By: #### B MP, DIMER, CBC, ADIFF, GFR, MDW, ANEU, TROPHS #### [address] [address] Basophils/100 WBC (Bld) 0.8 % Normal 0.0-2.5 [facility] ([place]) Comment on above: Performed By: #### B MP, DIMER, CBC, ADIFF, GFR, MDW, ANEU, TROPHS #### [address] [address] Eosinophil, Absolute 0.3 10 3/mcL Normal 0.0-0.4 [facility] ([place]) Comment on above: Performed By: #### B MP, DIMER, CBC, ADIFF, GFR, MDW, ANEU, TROPHS #### [address] [address] Eosinophils/100 WBC (Bld) 2.7 % Normal 0.0-7.0 [facility] ([place]) Comment on above: Performed By: #### B MP, DIMER, CBC, ADIFF, GFR, MDW, ANEU, TROPHS #### [address] [address] Lymphocyte, Absolute 2.9 10 3/mcL Normal 0.8-3.9 [facility] ([place]) Comment on above: Performed By: #### B MP, DIMER, CBC, ADIFF, GFR, MDW, ANEU, TROPHS #### [address] [address] Lymphocytes/100 WBC (Bld) 29.5 % Normal 10.0-50.0 [facility] ([place]) Comment on above: Performed By: #### B MP, DIMER, CBC, ADIFF, GFR, MDW, ANEU, TROPHS #### [address] [address] Monocyte, Absolute 0.5 10 3/mcL Normal 0.2-1.0 [facility] ([place]) Comment on above: Performed By: #### B MP, DIMER, CBC, ADIFF, GFR, MDW, ANEU, TROPHS #### [address] [address] Monocytes/100 WBC (Bld) 5.2 % Normal 1.7-13.0 [facility] ([place]) Comment on above: Performed By: #### B MP, DIMER, CBC, ADIFF, GFR, MDW, ANEU, TROPHS #### [address] [address] Neutrophils/100 WBC (Bld) 61.8 % Normal 37.0-80.0 [facility] ([place]) Comment on above: Performed By: #### B MP, DIMER, CBC, ADIFF, GFR, MDW, ANEU, TROPHS #### [address] [address] .GFRon 08-05-2023 GFR 100 ml/min/1.73sqm Normal [facility] ([place]) Comment on above: Result Comment: GFR Population [...] CBC, ADIFF, GFR, MDW, ANEU, TROPHS #### [address] [address] GFR Non- 82 ml/min/1.73sqm Normal [facility] ([place]) Comment on above: Result Comment: GFR Population [...] CBC, ADIFF, GFR, MDW, ANEU, TROPHS #### [address] [address] .MDWon 08-05-2023 Monocyte Distribution Width 19.22 Normal 0.00-20.00 [facility] ([place]) Comment on above: Result Comment: For ED adult patients suspected of sepsis, MDW<=20.0 does not rule out sepsis or risk of sepsis Performed By: #### B MP, DIMER, CBC, ADIFF, GFR, MDW, ANEU, TROPHS #### [address] [address] .NEUABSon 08-05-2023 Neutrophil, Absolute 6.2 10 3/mcL Normal 2.9-6.2 [facility] ([place]) Comment on above: Performed By: #### B MP, DIMER, CBC, ADIFF, GFR, MDW, ANEU, TROPHS #### [address] [address] BMPon 08-05-2023 BUN/Creatinine Ratio 18 ratio Normal 7-27 [facility] ([place]) Comment on above: Performed By: #### B MP, DIMER, CBC, ADIFF, GFR, MDW, ANEU, TROPHS #### [address] [address] Calcium [Mass/Vol] 9.2 mg/dL Normal 8.4-10.2 [facility] ([place]) Comment on above: Performed By: #### B MP, DIMER, CBC, ADIFF, GFR, MDW, ANEU, TROPHS #### [address] [address] Chloride [Moles/Vol] 104 mmol/L Normal 98-107 [facility] ([place]) Comment on above: Performed By: #### B MP, DIMER, CBC, ADIFF, GFR, MDW, ANEU, TROPHS #### [address] [address] CO2 [Moles/Vol] 27 mmol/L Normal 22-29 [facility] ([place]) Comment on above: Performed By: #### B MP, DIMER, CBC, ADIFF, GFR, MDW, ANEU, TROPHS #### [place] [phone] Creatinine [Mass/Vol] 0.80 mg/dL Normal 0.55-1.02 [facility] ([place]) Comment on above: Performed By: #### B MP, DIMER, CBC, ADIFF, GFR, MDW, ANEU, TROPHS #### [place] [phone] Electrolyte Balance 11.0 mEq/L Normal 4.0-15.0 [facility] ([place]) Comment on above: Performed By: #### B MP, DIMER, CBC, ADIFF, GFR, MDW, ANEU, TROPHS #### [address] [address] Glucose [Mass/Vol] 100 mg/dL Normal 70-105 [facility] ([place]) Comment on above: Performed By: #### B MP, DIMER, CBC, ADIFF, GFR, MDW, ANEU, TROPHS #### [address] [address] Potassium [Moles/Vol] 3.6 mmol/L Normal 3.5-5.1 [facility] ([place]) Comment on above: Performed By: #### B MP, DIMER, CBC, ADIFF, GFR, MDW, ANEU, TROPHS #### [address] [address] Sodium [Moles/Vol] 142 mmol/L Normal 136-145 [facility] ([place]) Comment on above: Performed By: #### B MP, DIMER, CBC, ADIFF, GFR, MDW, ANEU, TROPHS #### [place] [phone] Urea nitrogen [Mass/Vol] 14 mg/dL Normal 7-18 [facility] ([place]) Comment on above: Performed By: #### B MP, DIMER, CBC, ADIFF, GFR, MDW, ANEU, TROPHS #### [place] [address] CBCon 08-05-2023 Erythrocyte distribution width (RBC) [Ratio] 13.0 % Normal 11.5-14.5 [facility] ([place]) Comment on above: Performed By: #### B MP, DIMER, CBC, ADIFF, GFR, MDW, ANEU, TROPHS #### [place] [address] Hematocrit (Bld) [Volume fraction] 37.2 % Normal 37.0-47.0 [facility] ([place]) Comment on above: Performed By: #### B MP, DIMER, CBC, ADIFF, GFR, MDW, ANEU, TROPHS #### [place] [address] Hgb 12.5 G/dL Normal 12.0-16.0 [facility] ([place]) Comment on above: Performed By: #### B MP, DIMER, CBC, ADIFF, GFR, MDW, ANEU, TROPHS #### [place] [address] MCH (RBC) [Entitic mass] 29.6 pg Normal 27.0-31.2 [facility] ([place]) Comment on above: Performed By: #### B MP, DIMER, CBC, ADIFF, GFR, MDW, ANEU, TROPHS #### [place] [address] MCHC 33.5 G/dL Normal 33.0-37.0 [facility] ([place]) Comment on above: Performed By: #### B MP, DIMER, CBC, ADIFF, GFR, MDW, ANEU, TROPHS #### [place] [address] MCV (RBC) [Entitic vol] 88.4 fL Normal 80.0-94.0 [facility] ([place]) Comment on above: Performed By: #### B MP, DIMER, CBC, ADIFF, GFR, MDW, ANEU, TROPHS #### [address] [address] Platelet 365 10 3/mcL Normal 130-400 [facility] ([place]) Comment on above: Performed By: #### B MP, DIMER, CBC, ADIFF, GFR, MDW, ANEU, TROPHS #### [address] [address] Platelet mean volume (Bld) [Entitic vol] 7.6 fL Normal 7.4-10.4 [facility] ([place]) Comment on above: Performed By: #### B MP, DIMER, CBC, ADIFF, GFR, MDW, ANEU, TROPHS #### [address] [address] RBC 4.21 10 6/mcL Normal 4.20-5.40 [facility] ([place]) Comment on above: Performed By: #### B MP, DIMER, CBC, ADIFF, GFR, MDW, ANEU, TROPHS #### [address] [address] WBC 10.0 10 3/mcL Normal 4.6-10.8 [facility]) Comment on above: Performed By: #### B MP, DIMER, CBC, ADIFF, GFR, MDW, ANEU, TROPHS #### [address] [address] [address] ANGIOGRAPHY CHEST W/CONTR Javier 08-05-2023 CT [...] Ordering Provider: DARIUS KAUFMAN Normal [facility] ([place]) DIMERon 08-05-2023 D-Dimer 619 ng/mL D-DU High 0-230 [facility] ([place]) Comment on above: Result Comment: Resu lts [...] ADIFF, GFR, MDW, ANEU, TROPHS #### [place] [phone] LABORATORYOrdered By: Mary Herrera on 08-05-2023 HCG [...] ng/L Male: 0-76 ng/L Testing performed on [employer] using a homogeneous sandwich chemiluminescent immunoassay based on [employer] technology. Urea nitrogen [Mass/Vol] 14 mg/dL Normal [...] test) Ql (U) Negative Normal [facility] ([place]) Comment on above: Performed By: #### B MP, DIMER, CBC, ADIFF, GFR, MDW, ANEU, TROPHS #### [place] [phone] [place] [address] test (u) int Not detected Invalid Interpretation Code [facility] ([place]) Comment on above: Performed By: #### B MP, DIMER, CBC, ADIFF, GFR, MDW, ANEU, TROPHS #### [place] [address] [place], [place] [address] TROPHSon 08-05-2023 High Sensitivity Troponin I <4 Normal 0-51 [facility] ([place]) Comment on above: Result Comment: High Sensitive Troponin I Reference Ranges: Female: 0-51 ng/L Male: 0-76 ng/L Testing performed on [employer] using a homogeneous sandwich chemiluminescent immunoassay based on [employer] technology. Performed By: #### B MP, DIMER, CBC, ADIFF, GFR, MDW, ANEU, TROPHS #### [address] [address] XR CHEST 1 VIEWon 08-05-2023 XR CHEST [...] by: Hernan Marvin MD Preliminary Report By: Pih Juárez Electronically signed By Hernan Marvin MD Dictated Date: 08/05/2023 5:03:34 PM Prelim Date: 08/05/2023 5:14:52 PM Sign Date: 08/05/2023 5:14:52 PM Ordering Provider: DARIUS KAUFMAN [facility] ([place]) AERIAL GUNNER - Office Visiton 02-06 AERIAL GUNNER - Office Visit Patient Discussion/Summary The patient [...] for therapy RTO for APE or prn Tom Blul APRN-AMIE Chief Complaint A telephone visit (audio only) between the patient (at the originating site) and the provider (at the distant site) was utilized to provide this telehealth service. This is a telephone visit due to the COVID-19 Pandemic 6 wk PPV Home Security Alarm Installer Declined: MIKAELA Ty History of Present IllnessPt. [...] Status: Hold For - Scheduling Requested for: [id number] Depression (311) (F32.A) Provider Impressions IMP: 31 yo MFG1P! referred by OB. PMH May 2021, in September 2021. together for one yr. Working on [employer]. Delivered baby boyChad, 01/05/22, unplanned via [...] 3-4 hours sleep for first 6 weeks. [place] like want to escape, no SI/HI. Had [...] 2021, together for one yr. Working on [employer] Delivered baby boy, Chad, 01/05/22, [...] helpful, parents one hour away. is fantastic. [place] like want to escape, no SI/HI. Had [...] No panic, no OCD, no catastrophic thinking " self rated anxiety in past week 7/10 [...] not at allQ8: Not very oftenQ9: Only [id number]: Never AERIAL GUNNER - Visiton 02-04-2022 AERIAL GUNNER - Visit Chief Complaint PPV EPDS= 5 Declined Home Security Alarm Installer: LEONARDA Oquendo History of Present IllnessThe patient [...] of Col (more content not included)... Normal [facility] Tobacco Screening.on 022 Adult depression screening assessment No [facility] [place] [facility] DO Work Phone: Fall risk assessment a) No falls within the last year [facility] [place] DO Work Phone: Last menstrual period start date PP [facility] [place]20 DO Work Phone: Tobacco use status CPHS b) No [facility] [place] DO Work Phone: AERIAL GUNNER - Office Visiton 01-06 AERIAL GUNNER - Office Visit Diagnoses/Problems Assessed state (V24.2) [...] B/P check c/o JEFFERS DOD 01/05/22 VD Home Security Alarm Installer declined Shanon COATES History of Present IllnessPatient [...] (U) [facility] [address] [place] Work Phone: AERIAL GUNNER - Office Visiton 01-06 AERIAL GUNNER - Office Visit Diagnoses/Problems Assessed Dysuria (788.1) (R30.0) Gestational hypertension (642.30) (O13.9) Orders Cult, Urine; Status:In Progress - Specimen/Data Collected,Retrospective Authorization; Done: [id number] Urine Site : Clean Catch/Voided Provider Impressions Will get larger BP cuff and monitor at home. If 160/110 or higher, or headache, vision changes or RUQ pain will present to [facility] [facility] Follow up with me on Wednesday after a few days of monitoring with new cuff to see if dose adjustment needed Urine culutre send for dysuria. 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 valACYclovir HCl - 500 MG Oral Tablettake one tablet twice a day for remainder of for suppression Vitals Vital Signs Recorded: 15Jan2022 03:07PM [id number] Height5 ft 2 in Physical Exam Constitutional: Alert and in no acute distress. Well developed, well nourished Head and Face: Head and face: normal Eyes: Normal external exam - nonicteric sclera, extraocular movements intact (EOMI) and no ptosis. Ears, Nose, Mouth, and Throat: (more content not included)... Normal [employer] URINE CULTURE,BACTERIALon URINE CULTURE,BACTERIAL PATIENT: SHU GASPAR LOCATION: [facility] [place] BILL#: [id number] : 86 AGE: SEX: F ORDERED BY: SUKI YOU SOURCE: URINE COLLECTED: 01/15/22 00:00 ANTIBIOTICS AT MELISSA.: RECEIVED : 01/15/22 22:17 SITE: Clean Catch/Voided R E S U L T S URINE CULTURE,BACTERIAL FINAL 01/16/22 16:36 NO GROWTH Normal [facility] Comment on above: Performed By: #### U [facility] ####[id number] [place] [address] Basophil percentageon 2021 Bilirubin [Mass/Vol] 0.30 mg/dL 0.20-1.00 [facility] Work Phone: Comment on above: For patients on eltr ombopag therapy, use of Dimension [place] TBIL is not recommended. Chloride [Moles/Vol] 107 mmol/L 98-107 [facility] Work Phone: Glucose [Mass/Vol] 83 mg/dL 74-106 [facility] Work Phone: Potassium [Moles/Vol] 3.8 mmol/L 3.5-5.1 [facility] Work Phone: Protein [Mass/Vol] 6.4 g/dL 6.4-8.2 [facility] Work Phone: Sodium [Moles/Vol] 143 mmol/L 136-145 [facility] Work Phone: WBC (Bld) [#/Vol] 10.5 10*3/uL 4.4-11.0 [facility] Work Phone: Blood erythrocytes count (nu mber/volume)on 01-11-2022 RBC (Bld) [#/Vol] 3.55 10*6/uL 4.2-5.4 [facility] Work Phone: Blood hemoglobin measurement (mass/volume)on 01-11-2022 Hemoglobin (Bld) [Mass/Vol] 10.3 g/dL 12.0-15.0 [facility] Work Phone: Blood platelet mean volumeon 01-11-2022 Platelet mean volume (Bld) [Entitic vol] 9.8 fL 6.2-12.0 [facility] Work Phone: Determination of erythrocyte mean corpuscular volume (MCV)on 01-11-2022 MCV (RBC) [Entitic vol] 90.7 fL 81-99 [facility] Work Phone: Hematocrit Auto (Bld) [Volum e fraction]on 01-11-2022 Hematocrit (Bld) [Volume fraction] 32.2 % 37-47 [facility] Work Phone: Laboratory - Chemistry and C hemistry - challengeon 01-11-2022 ALP [Catalytic activity/Vol] 141 U/L 45-117 [facility] Work Phone: ALT [Catalytic activity/Vol] 23 U/L 13-56 [facility] Work Phone: CO2 [Moles/Vol] 29.0 mmol/L 21.0-32.0 [facility] Work Phone: Globulin (S) [Mass/Vol] 4.1 g/dL 2.2-4.2 [facility] Work Phone: Urea nitrogen/Creatinine [Mass ratio] 14.8 mg/mg 10-20 [facility] Work Phone: Laboratory - Hematology and Cell countson 01-11-2022 Erythrocyte distribution width (RBC) [Entitic vol] 45.0 fL 35.1-43.9 [facility] Work Phone: Erythrocyte distribution width (RBC) [Ratio] 13.5 % 11.6-14.6 [facility] Work Phone: MCH (RBC) [Entitic mass] 29.0 pg 27.0-32.0 [facility] Work Phone: MCHC Auto (RBC) [Mass/Vol]on 01-11-2022 MCHC (RBC) [Mass/Vol] 32.0 g/dL 32-36 [facility] Work Phone: No Panel Informationon 01-11 Estimated Creatinine Clearance Calc 103.75 ml/min [facility] Work Phone: Estimated GFR (MDRD) Amer 145 mL/min >60 [facility] Work Phone: Comment on above: GFR Calc Estimated GFR (MDRD) Non-Af Amer 120 mL/min >60 [facility] Work Phone: Comment on above: Non- GFR Calc Platelets bldon 01-11-2022 Platelets (Bld) [#/Vol] 326 10*3/uL 150-450 [facility] Work Phone: Serum or plasma albumin laureano urement (mass/volume)on 01-11-2022 Albumin [Mass/Vol] 2.3 g/dL 3.2-5.0 [facility] Work Phone: Serum or plasma albumin/glob ulin mass ratioon 01-11-2022 Albumin/Globulin [Mass ratio] 0.6 {ratio} 0.9-2.4 [facility] Work Phone: Serum or plasma calcium laureano urement (mass/volume)on 01-11-2022 Calcium [Mass/Vol] 9.1 mg/dL 8.5-10.1 [facility] Work Phone: Serum or plasma creatinine m easurement (mass/volume)on 01-11-2022 Creatinine [Mass/Vol] 0.61 mg/dL 0.55-1.02 [facility] Work Phone: Comment on above: The validity of the calculated GFR & GFRAA in patients over 70 years has not been determined. Clinical correlation is essential. Serum or plasma urea nitroge n measurement (mass/volume)on 01-11-2022 Urea nitrogen [Mass/Vol] 9 mg/dL 7-18 [facility] Work Phone: Serum or plasma uric acid me asurement (mass/volume)on 01-11-2022 Urate [Mass/Vol] 4.5 mg/dL 2.6-6.0 [facility] Work Phone: Comment on above: The drugs N-Acetylcy steine and Metamizole may falsely depress this assay. Thin prep Papanicolaou smear with manual screeningon 01-11-2022 Thin prep Papanicolaou smear with manual screening 16 U/L 15-37 [facility] Work Phone: Thin prep Papanicolaou smear with manual screening 7 5-15 [facility] Work Phone: Order Reconciliationon 01-07 Order Reconciliation Page 1 Discharge Reconciliation Document Reconciliation Type: Discharge requested on behalf of Yasmin Lackey (Advanced Practice Nurse) done by Yasmin Lackey (LOGISTICS ACCOUNT MANAGER-[facility]) Discharge - Reconciliation: 07-Jan-2022 09:51 by: Yasmin Lackey (LOGISTICS ACCOUNT MANAGER-STEAM ROOM ATTENDANT) Home Medications EnteredHOME MEDICATIONS AT DISCHARGE DateReconciliation [...] tablet Benzocaine 20% - Menthol 0.5% Topical [place] (DERMOPLAST)DOSE = 1 application(s) Topical 4 Times [...] content not included)... Normal [facility] Clinical Event Note-BP Cuff and Home Monitoringon [...] agreed to order home BP monitor from [employer]. Large BP monitor delivered to room. Patient educated on how to use BP monitor, recording BPs on home monitoring log and s/sx to report to her provider. Pt verbalized understanding the above information. Electronic Signatures: Colleen Monterroso (RN) (Signed 06-Jan-2022 11:06) Authored: Clinical Event Note Last Updated: 06-Jan-2022 11:06 by Colleen Monterroso (GRACIA) Normal [facility] Daily Progress Note - OB-Pos t-partumon 01-06-2022 Daily Progress Note - UM-Wrzc-nsbdya Current Stage: Stage: Post- Subjective Data: Post : Ambulate: Yes Flatus: Yes Tolerate Diet: Yes Lochia: Light Desired Contraception: Depo-Provera - Contraception options reviewed, including risks and benefits. Pain Comment: well controlled with PO medications. : Pt seen with baby and support person @ bedside in NAD. Alert, conversational. Denies JEFFERS, N/V, RUQ pain, vision changes. Objective Information: Objective Information: T PRBPMAPSpO2 [id number]% Date/Time01/06 8: 8: 8: 8: 8: 8:52 [...] home Maternal Well-Being - emotional support provided Feeding - /pumping encouraged; consult prn notable [...] (she/her) Doc Halo/Vocera Electronic Signatures: Yasmin Lackey (LOGISTICS ACCOUNT MANAGER-STEAM ROOM ATTENDANT) (Signed 06-Jan-2022 16:16) Authored: Current Stage, Subjective Data, Objective Data, Assessment and Plan, Note Completion Last Updated: 06-Jan-2022 16:16 by Yasmin Lackey (LOGISTICS ACCOUNT MANAGER-STEAM ROOM ATTENDANT) Normal [facility] Clinical Event Note-Labor Ch eckon 01-05-2022 Clinical [...] . ALLY Beckham Electronic Signatures: Tameka Gonsalves (LOGISTICS ACCOUNT MANAGER-[facility]) (Signed 05-Jan-2022 04:42) Authored: Clinical Event Note Last Updated: 05-Jan-2022 04:42 by Tameka Gonsalves (LOGISTICS ACCOUNT MANAGER-[facility]) Normal [facility] Clinical Event Note-Labor Check Clinical Event: Clinical [...] BP. ALLY Beckham Electronic Signatures: Tameka Gonsalves ([facility]) (Signed 05-Jan-2022 03:50) Authored: Clinical Event Note Last Updated: 05-Jan-2022 03:50 by Tameka Gonsalves ([facility]) Normal [facility] Clinical Event Note-Labor Check Clinical Event: Clinical [...] clinically indicated. Delivery cart to room. Anticipate . ALLY Beckham Electronic Signatures: Tameka Gonsalves ([facility] (Signed 05-Jan-2022 02:30) Authored: Clinical Event Note Last Updated: 05-Jan-2022 02:30 by Tameka Gonsalves ([facility]) Normal [facility] Clinical Event Note-Labor ch eckon 01-05-2022 Clinical [...] per guidelines. Reassess as indicated. Anticipate . AALLY Kendrick Electronic Signatures: Tameka Gonsalves ([facility]) (Signed 05-Jan-2022 00:26) Authored: Clinical Event Note Last Updated: 05-Jan-2022 00:26 by Tameka Gonsalves ([facility]) Normal [facility] Delivery Recordon 01-05-2022 Delivery Record Lab Tests/Results: [...] Information: Baby A Delivery: Rupture of Membranes date/iioj20-Fao-2928 20:55 Amniotic Fluid Colorclear Delivery Typevaginal delivery Delivery Locationlabor and delivery Delivery Date/Qkim36-Wme-5772 06:51 Length of Time of ROM (rounded down to nearest hour)9 Sexmale Identification Band [id number] Electronic Transponder [id number] ID Bands Verified byAmelia FAGAN/ Eddie FAGAN [...] A9 Apgars assessed byAmelia FAGAN Delivery Team: Baby NurseTanya Cisneros RN Electronic Signatures: Harvey Neumann (RN) (Signed 05-Jan-2022 09:08) Authored: Delivery Information Ariana Morgan) (Signed 05-Jan-2022 07:05) Authored: Lab Tests/Results, Wayne Delivery Information Last Updated: 05-Jan-2022 09:08 by Harvey NeumannRN) [facility] Discharge Planning Msni6lw 1 Discharge Planning Note2 Discharge Planning: Planned Dispositionhome Anticipated Discharge [id number] Discharge Planning Date and Time: 01/05/22 @ [...] Alaina Mijares RN Assessment: Discharge Planning Assessment [id number] Lives Withsignificant other(1) [place]) Resource/Environmental Concernsnone(1) [place]ticipated Transition [place]) Services Anticipated at Transitionnon(1) Discharge Documentation: Code StatusCode Status order at time of discharge: Full Code Electronic Signatures: Alaina Mijares (GRACIA) (Signed 05-Jan-2022 09:50) Authored: Discharge Planning, Assessment, Discharge Documentation Last Updated: 05-Jan-2022 09:50 by Alaina Mijares (GRACIA) References: 1. Data Referenced From Patient Profile - OB v3 04-Jan-2022 08:29 Normal [facility] Discharge [id number] 022 Discharge Profile2 Discharge Orders: Anticipated Discharge Date: Anticipated Discharge [id number] DNAR: Code Status at Discharge: Full Code [...] 110 or higher, call your doctor or recovery collector immediately. Blood Pressure Systolic (upper number) 150 - 159 OR Diastolic (bottom number) 100 - 109, repeat in one hour. If repeat Blood Pressure Systolic 150 - 159 OR Diastolic 100 - 109, call your doctor or recovery collector to discuss blood pressure management.. Follow-Up - OB Provider: Physician/Dept/ServiceOB Provider CommentsPlease call for BP check within 2-5 days and a 4-6wk visit Provider FINAL REVIEW of Orders: Final Review: Final Review of Medication Reconciliation and Orders Completedby TERRY Santana at 07-Jan-2022 09:50:54 Appointments: Follow-Up Appointment 01: Physician/Freemant/Miroslava Provider Reason for ReferralBlood Pressure Check Scheduled Date/Lcgl77-Tdw-1996 14:30 Follow-Up Appointment 02: Physician/Omar/Romeo Reason for ReferralPPV Call to Schedule in4-6 Weeks CommentsPlease call to schedule Other Clinician Instructions: Other Instructions: Nursing InstructionsThe [place] Academy of Pediatrics recommends that pacifier use [...] to nearest emergency room. *Information obtained from AWVicki: (more content not included)... Normal [facility] No Panel Informationon 01-05 [facility] Work Phone: ORDER RECD MG-OBGYN-Ri sman [address] [facility] Work Phone: Order Reconciliationon 01-05 Order Reconciliation Page 1 Transfer Reconciliation Document Reconciliation Type: Transfer requested on behalf of Tameka Gonsalves (Advanced Practice Nurse) done by Tameka Gonsalves (LOGISTICS ACCOUNT MANAGER-[facility]) Transfer - Reconciliation: 05-Jan-2022 07:37 by: Tameka Gonsalves (LOGISTICS ACCOUNT MANAGER-[facility]) Pre-Transfer OrdersDateReconciliation Comment/ Additional InformationPost Transfer OrdersDateStop [...] content not included)... Normal [facility] REQUEST-LEUKOREDUCED RED HORACE LSon 01-05-2022 REQUEST-LEUKOREDUCED RED CELLS ORDER RECD Normal [facility] Comment on above: Performed By: #### O COMPUGRAPH OPERATOR ####[id number] [address] Surgical Pathology Depar tmenton 01-05-2022 [facility] Surgical Pathology Department Name SHU GASPAR Tristen Pathologist: ISRRAEL DAVENPORT MD Date of Procedure: [...] performed at [facility] [address] [place] [address] Clinical History: Gestational age: 39.3 Ob index: [...] measuring 7.0 x 6.0 x 1.8 cm. Real Estate Leasing Manager sections are submitted in 5 cassettes. [facility] Summary of Cassettes: Specimen Label Site A 1 umbilical cord sections 2 membrane rolls 3 placental parenchyma, umbilical cord insertion site 4 placental parenchyma with attached blood clot 5 placental parenchyma djo/01/06/2022 [facility] Department of Pathology [address] [place] [address] Normal [facility] Comment on above: Performed By: #### T +S #### [address] [place] [address] Admission Risk Screen - OBon 01-04-2022 Admission [...] Learning Preferencesverbal instruction Cultural Considerationsnone Developmental Considerationsnone Mosque Considerationsnone Learning Assessment (Other Learner): Other learner [...] Spiritual Screen: Are there any cultural, spiritual, gnosticist practices/values/needs that are important for us to knowno Depression Screen: During the past month, have you often been bothered by feeling down, depressed or hopelessno During the past month, have you often had little interest or pleasure in doing thingsno Have you had any thoughts of harming anyone elseno [place] Suicide: Risk Screen Not Applicable/Able to Answerable to be screened In the Past Month: Have you wished you were or could go to sleep and not wake upno In the Past Month: Have you had any actual thoughts of killing yourselfno Lifetime: Have you ever done, started to do, or prepared to do anything to end your lifeno [place] Suicide Risknegative Family Violence Screen: Are you [...] with underlying chronic conditions or reside in dedicated intermodal truck driver care facilitiesnone of these conditions Persons with Functional or Anatomic Asplenianone of these conditions Immunocompromised Personsnone of these conditions Pneumonia vaccine NOT indicated due to:patient DOES NOT have a condition that indicates vaccination Vaccination - TDap Vaccination Screen: Have you received a TDap vaccine this pregnancyyes (no further action required) (more content not included)... Normal [facility] CBCon 01-04-2022 Erythrocyte distribution width (RBC) [Ratio] 13.8 % Normal 11.5 - 14.5 [facility] Comment on above: Performed By: #### O COMPUGRAPH OPERATOR #### [facility] [address] [place] [address] Hematocrit (Bld) [Volume fraction] 34.1 % Low 36.0 - 46.0 [facility] Comment on above: Performed By: #### O COMPUGRAPH OPERATOR #### [facility] [address] [place] [address] Hemoglobin (Bld) [Mass/Vol] 11.1 g/dL Low 12.0 - 16.0 [facility] Comment on above: Performed By: #### O COMPUGRAPH OPERATOR #### [facility] [address] [place] [address] MCHC (RBC) [Mass/Vol] 32.6 g/dL Normal 32.0 - 36.0 [facility] Comment on above: Performed By: #### O COMPUGRAPH OPERATOR #### [facility] [address] [place] [address] MCV (RBC) [Entitic vol] 91 fL Normal 80 - 100 [facility] Comment on above: Performed By: #### O COMPUGRAPH OPERATOR #### [facility] [address] [place] [address] NUCLEATED RBC 0.0 /100 WBC Normal 0.0-0.0 [facility] Comment on above: Performed By: #### O COMPUGRAPH OPERATOR #### [facility] [address] [place] [address] Platelets (Bld) [#/Vol] 224 10*3/uL Normal 150 - 450 [facility] Comment on above: Performed By: #### O COMPUGRAPH OPERATOR #### [facility] [address] [place] [address] RBC 3.76 x10E12/L Low 4.00 - 5.20 [facility] Comment on above: Performed By: #### O COMPUGRAPH OPERATOR #### [facility] [address] [place] [address] WBC (Bld) [#/Vol] 10.5 10*3/uL Normal 4.4 - 11.3 [facility] Comment on above: Performed By: #### O COMPUGRAPH OPERATOR #### [facility] [address] [place] [address] COMPREHENSIVE PANELon 2021 Albumin [Mass/Vol] 3.2 g/dL Low 3.4 - 5.0 [facility] Comment on above: Performed By: #### O COMPUGRAPH OPERATOR #### [facility] [address] [place] [address] ALP [Catalytic activity/Vol] 192 U/L High 33 - 110 MG-OBGYN-Ri sman 100 [facility] Work Phone: Comment on above: Performed By: #### O COMPUGRAPH OPERATOR #### [facility] [address] [place] [address] ALT [Catalytic activity/Vol] 10 U/L Normal 7 - 45 [facility] Comment on above: Result Comment: Kim ents treated with Sulfasalazine may generate falsely decreased results for ALT. Performed By: #### O COMPUGRAPH OPERATOR #### [facility] [address] [place] [address] Anion gap [Moles/Vol] 13 mmol/L Normal 10 - 20 MG- OBGYN-Ri sman 100 [facility] Work Phone: Comment on above: Performed By: #### O COMPUGRAPH OPERATOR #### [facility] [address] [place] [address] AST [Catalytic activity/Vol] 14 U/L Normal 9 - 39 [facility] Comment on above: Performed By: #### O COMPUGRAPH OPERATOR #### [facility] [address] [place] [address] Bilirubin [Mass/Vol] 0.3 mg/dL Normal 0.0 - 1.2 MG-O BGYN-Ri sman [address] [facility] Work Phone: Comment on above: Performed By: #### O COMPUGRAPH OPERATOR #### [facility] [address] [place] [address] Calcium [Mass/Vol] 8.6 mg/dL Normal 8.6 - 10.6 MG-OBG YN-Ri sman [address] [facility] Work Phone: Comment on above: Performed By: #### O COMPUGRAPH OPERATOR #### [facility] [address] [place] [address] Chloride [Moles/Vol] 108 mmol/L High 98 - 107 MG-O BGYN-Ri sman 100 [facility] Work Phone: Comment on above: Performed By: #### O COMPUGRAPH OPERATOR #### [facility] [address] [place] [address] Creatinine [Mass/Vol] 0.47 mg/dL Low 0.50 - 1.05 MG -OBGYN-Ri sman [address] [facility] Work Phone: Comment on above: Reference Range: 0.5 0 - 1.05 Performed By: #### O COMPUGRAPH OPERATOR #### [facility] [address] [place] [address] eGFR FEMALE >90 Normal >90 [facility] Comment on above: Result Comment: CALC ULATIONS OF ESTIMATED GFR ARE PERFORMED USING THE 2020 CKD-EPI STUDY REFIT EQUATION WITHOUT THE RACE VARIABLE FOR THE IDMS-TRACEABLE CREATININE METHODS. https://jasn.asnjournals.org/content/early/ASN.76109 04777 Performed By: #### O COMPUGRAPH OPERATOR #### [facility] [address] [place] [address] Glucose [Mass/Vol] 94 mg/dL Normal 74 - 99 MG-OBG YN-Ri sman 100 [facility] Work Phone: Comment on above: Performed By: #### O COMPUGRAPH OPERATOR #### [facility] [address] [place] [address] HCO3 (Bld) [Moles/Vol] 21 mmol/L Normal 21 - 32 [facility] Comment on above: Performed By: #### O COMPUGRAPH OPERATOR #### [facility] [address] [place] [address] Potassium [Moles/Vol] 4.0 mmol/L Normal 3.5 - 5.3 MG- OBGYN-Ri sman [address] [facility] Work Phone: Comment on above: Performed By: #### O COMPUGRAPH OPERATOR #### [facility] [address] [place] [address] Protein [Mass/Vol] 5.4 g/dL Low 6.4 - 8.2 MG-OBG YN-Ri sman [address] [facility] Work Phone: Comment on above: Performed By: #### O COMPUGRAPH OPERATOR #### [facility] [address] [place] [address] Sodium [Moles/Vol] 138 mmol/L Normal 136 - 145 MG-OBG YN-Ri sman 100 [facility] Work Phone: Comment on above: Performed By: #### O COMPUGRAPH OPERATOR #### [facility] [address] [place] [address] Urea nitrogen [Mass/Vol] 10 mg/dL Normal 6 - 23 MG-OBGYN-Ri sman [address] [facility] Work Phone: Comment on above: Performed By: #### O COMPUGRAPH OPERATOR #### [facility] [address] [place] [address] Daily Progress Note - OB-Int rapartumon 01-04-2022 Daily Progress Note - OB-Intrapartum Current Stage: Stage: Intrapartum Subjective Data: Intrapartum: Intrapartum Progress Notes Pt resting comfortably with epidural, consents to cervical exam. Objective Information: Objective Information: T PRBPMAPSpO2 [id number]% Date/Time01/04 20: 21: 20: 21: 21: 21:35 Range(36.5C - 36.8C ) (74 - 103 ) (16 - 18 ) (126 - 166 )/ (65 - 93 ) (94 - 116 ) (90% - 100% ) Pain reported at 01/04 20:30: 0 = None ---- Intake and Output ----- Mn/Dy/Year TimeIntakeOutputNet Jan 04, 2022 2:00 pm000 Physical Exam: [...] diagnosis. ALLY Beckham Electronic Signatures: Tameka Gonsalves ([facility]) (Signed 04-Jan-2022 21:46) Authored: Current Stage, Subjective Data, Objective Data, Assessment and Plan, Note Completion Last Updated: 04-Jan-2022 21:46 by Tameka Gonsalves ([facility]) Normal [facility] LDHon 01-04-2022 LDH 145 U/L Normal 84 - 246 [facility] Comment on above: Performed By: #### L #### [facility] [address] [place] [address] Laboratory - Blood bankon ABO group Nom (Bld) A [facility] Work Phone: Blood group antibody screen Ql Negative [facility] Work Phone: Rh immune globulin screen (Bld) [Interp] Positive [facility] Work Phone: Laboratory - Chemistry and C hemistry - challengeon 01-04-2022 Albumin BCP dye [Mass/Vol] 3.2 g/dL below low threshold 3.4 - 5.0 MG-OBGYN-Ri sman 100 [facility] Work Phone: ALT With P-5'-P [Catalytic activity/Vol] 10 U/L 7 - 45 MG-OBGYN-Ri sman 100 [facility] Work Phone: Comment on above: Patients treated wit h Sulfasalazine may generate falsely decreased results for ALT. AST With P-5'-P [Catalytic activity/Vol] 14 U/L 9 - 39 MG-OBGYN-Ri sman 100 [facility] Work Phone: CO2 [Moles/Vol] 21 mmol/L 21 - 32 MG-OBGYN- Ri sman 100 [facility] Work Phone: LDH [Catalytic activity/Vol] 145 U/L 84 - 246 MG-OBGYN-Ri sman 100 [facility] Work Phone: Laboratory - Hematology and Cell countson 01-04-2022 Erythrocyte distribution width (RBC) [Ratio] 13.8 % See Below MG-OBGYN-Ri sman 100 [facility] Work Phone: Comment on above: Reference Range: 11. 5 - 14.5 Hematocrit (Bld) [Volume fraction] 34.1 % below low threshold See Below MG-OBGYN-Ri sman 100 [facility] Work Phone: Comment on above: Reference Range: 36. 0 - 46.0 Hemoglobin (Bld) [Mass/Vol] 11.1 g/dL below low threshold See Below MG-OBGYN-Ri sman 100 [facility] Work Phone: Comment on above: Reference Range: 12. 0 - 16.0 MCHC (RBC) [Mass/Vol] 32.6 g/dL See Below MG- OBGYN-Ri sman 100 [facility] Work Phone: Comment on above: Reference Range: 32. 0 - 36.0 MCV (RBC) [Entitic vol] 91 fL 80 - 100 MG-OBGYN-Ri sman 100 [facility] Work Phone: Platelets (Bld) [#/Vol] 224 10*3/uL 150 - 450 MG-OBGYN-Ri sman 100 [facility] Work Phone: RBC (Bld) [#/Vol] 3.76 {x10E12/L} below low threshold See Below [facility] Work Phone: Comment on above: Reference Range: 4.0 0 - 5.20 WBC (Bld) [#/Vol] 10.5 10*3/uL 4.4 - 11.3 [facility]SEWER AND INS[facility] [address] [place] [address] Work Phone: No Panel Informationon 01-04 >90 >90 [facility] [address] [place] [address] Work Phone: Comment on above: CALCULATIONS OF ASIYA MATED GFR ARE PERFORMED USING THE 2020 CKD-EPI STUDY REFIT EQUATION WITHOUT THE RACE VARIABLE FOR THE IDMS-TRACEABLE CREATININE METHODS.https://jasn.asnjournals.org/content///A SN.4277198548 ORDER RECD [facility] [address] [place] [address] Work Phone: 0.0 {/100_WBC} 0.0-0.0 MG-OBGYN-R i [address] Work Phone: Order Reconciliationon 01-04 Order Reconciliation Page 1 Admission Reconciliation Document Reconciliation Type: Admission requested on behalf of Grace Valdez (Advanced Practice Nurse) done by Grace Valdez (LOGISTICS ACCOUNT MANAGER-CNM) Admission - Reconciliation: 04-Jan-2022 08:43 by: Grace Valdez (LOGISTICS ACCOUNT MANAGER-CNM) Home MedicationsEnteredLast Dose TakenReconciled with current Order Reconciliation Comment/ Additional Information Aspir 81 oral delayed release tablet 1 tab(s) orally once a [id number] Reviewed and Held Lexapro 10 mg oral tablet 1 tab(s) orally once a [id number] Escitalopram Tablet (LEXAPRO)DOSE = 10 mg Oral DailyLexapro 10 mg oral tablet continued as the inpatient order Escitalopram Prena1 oral capsule 1 cap(s) orally once a [id number]-5756 Reviewed and Held Vitamin C 04-Jan-2022 Reviewed and Held Vitamin D3 1250 mcg (50,000 intl units) oral capsule cap(s) orally once a week 04-Jan-2022 Reviewed and Held Normal [facility] Patient Profile - OB v3on Patient Profile - OB v3 Profile: Initial Info: How to be AddressedSamantha or Thierry Spoken Language PreferredEnglish Source of Informationpatient Reason for admission this visitexpected delivery Wants Family/Rep Notified of Admissionn/a; family present Notify PCPdo not notify PCP Informed of Patient Visiting Rightsyes [facility] Patient Belongingsremains with patient Patient Belongings Remaining with Patientclothing Home Meds have been Reviewed and Verified with Patient/Familyyes Medications Brought to Hospitalno Info: Gravida1 (1) Term Deliveries0 (1) Deliveries0 (1) Abortions0 (1) Living Children0 (1) Patient stated [id number] Calculation of EGA based on patient stated [...] with patient / mother. Discussion Date / [id number]-Oyk-9506 08:30 Previous Experienceyes General Health: Current Weight in kg122 kilogram(s) Current Weight in eyo527.9 pound(s) Weight Methodactual (measured) Scale Typestanding Pre [...] Lives Withsignificant other Resource/Environmental Concernsnone Anticipated Transition [facility] Anticipated at Transitionnone Additional Information: Information [...] v4 23-Dec-2021 17:47 Normal [facility] REQUEST-LEUKOREDUCED RED HORACE LSon 01-04-2022 REQUEST-LEUKOREDUCED RED CELLS ORDER RECD Normal [facility] Comment on above: Performed By: #### O COMPUGRAPH OPERATOR #### [facility] [address] [place] [address] SYPHILIS SCREENING WITH REFL EXon 01-04-2022 SYPHILIS TOTAL AB Non-Reactive Normal NONREACTIVE [facility] Comment on above: Result Comment: No s ignificant level of Treponema pallidum antibody detected. Repeat testing in 2 to 4 weeks may be considered if early infection or incubating syphilis infection is suspected. Performed By: #### S YPHR ####[id number] [id number] Lab Specimen Source Normal [facility] Comment on above: Performed By: #### S YPHR ####[id number] [place] [address] T. pallidum IgG+IgM IA Ql (S) Non-Reactive See Below MG-OBGYN-Ri sman 100 [facility] Work Phone: Comment on above: SOURCE: Reference Ra nge: NONREACTIVENo significant level of Treponema pallidum antibody detected. Repeat testing in 2 to 4 weeks may be considered if early infection or incubating syphilis infection is suspected. TOTAL PROTEIN, URINE SPOTon 01-04-2022 CREATININE,URINE 226.0 mg/dL Normal 20.0 - 320.0 [facility] Comment on above: Performed By: #### T PS2 #### [facility] [address] [place] [address] T. PROTEIN/CREAT RATIO 0.17 mg/mg Creat Normal 0.00 - 0.17 [facility] Comment on above: Performed By: #### T PS2 #### [facility] [address] [place] [address] TOTAL PROT,URINE SPOT 38 mg/dL High 5 - 24 [facility] Comment on above: Performed By: #### T PS2 #### [facility] [address] [place] [address] TYPE + SCREENon 01-04-2022 ABO TYPE A Normal [facility] Comment on above: Performed By: #### T +S #### [facility] [address] [place] [address] RH TYPE Positive Normal [facility] Comment on above: Performed By: #### T +S #### [facility] [address] [place] [address] Total Protein, Urine Spoton 01-04-2022 Creatinine (U) [Mass/Vol] 226.0 mg/dL See Below [facility] Work Phone: Comment on above: Reference Range: 20. 0 - 320.0 Protein (U) [Mass/Vol] 38 mg/dL above hig h threshold 5 - 24 [facility] Work Phone: Protein/Creatinine (U) [Ratio] 0.17 {mg/mg_Creat} See Below MG-OBGYN-Ri sman [address] [place], [place] [address] Work Phone: Comment on above: Reference Range: 0.0 0 - 0.17 Uric Acid, Serumon 2 Urate [Mass/Vol] 3.6 mg/dL Normal 2.3 - 6.7 [facility] Work Phone: Comment on above: Venipuncture immedia tely after or during the administration of Metamizole may lead to falsely low results. Testing should be performed immediately prior to Metamizole dosing. Result Comment: Cony puncture immediately after or during the administration of Metamizole may lead to falsely low results. Testing should be performed immediately prior to Metamizole dosing. Performed By: #### T +S #### [facility] [address] [place] [address] Coronavirus 2019 RNA by PCR, Symptomaticon 01-02-2022 Coronavirus 2019 RNA by PCR, Symptomatic Not detected Normal See Below MG-OBGYN-Ri [address] Work Phone: Comment on above: SOURCE: Nasal, Nasop haryngealReference Range: Not Detected.This test has received [facility] Emergency Use Authorization (EUA) and has been verified by [facility]. This test is only authorized for the duration of time that circumstances exist to justify the authorization of the emergency use of in vitro diagnostic tests for the detection of SARS-CoV-2 virus and/or diagnosis of COVID-19 infection under section 564(b)(1) of the Act, 21 U.S.C. 360bbb-3(b)(1), unless the authorization is terminated or revoked sooner. [facility] is certified under CLIA-88 as qualified to perform high complexity testing. Testing is performed in the [facility] laboratory located at [address] [place] [address].SARS-CoV-2/Flu/RSV Multiplex Test: Fact sheet for providers: https://www.fda.gov/media/870373/downloadFact sheet for patients: https://www.fda.gov/media/506421/download Covid 19 Resultson 2 SARS-CoV-2 (COVID-19) RNA [...] You may also be contacted by the [facility] to see if any of your [...] or Naproxen (Aleve) can also be used. Rdmf-lzh-eqzhyfi cough and cold medicines can be used according to the instructions on the package. Some dfci-ovw-czbctfs medicines also contain acetaminophen. Make sure you [...] water are not available, use alcohol-based hand hospital intern. Avoid touching your eyes, nose, and mouth [...] content not included)... Normal [facility] Daily Progress Note - OB-Tri ageon 12-23-2021 [...] NKDA Objective Information: Objective Information: T PRBPMAPSpO2 [id number] Date/Time12/23 17: 17: 17:50 Range (108 - 108 ) (121 - 121 )/ (78 - 78 ) (95 - 95 ) Physical Exam: Constitutional: alert, oriented Obstetric: gravid FHTs 135 baseline, moderate variability, +accels after SVE, -decels UC every 2-3 min SVE: fingertip/60/-3 Respiratory/Thorax: normal respiratory effort Extremities: no edema Psychological: appropriate affect Testing: NST Interpretation - Baby A: Baseline [id number] Variabilitymoderate (amplitude range 6 to 25 bpm) [...] Amelia Zamora CNM Electronic Signatures: Amelia Zamora (ALLY) (Signed 23-Dec-2021 18:52) Authored: Current Stage, Subjective Data, Objective Data, Testing, Assessment and Plan, Note Completion Last Updated: 23-Dec-2021 18:52 by Amelia Zamora (MAGALY-AMIE) Normal [facility] Discharge [id number] 022 Discharge Profile2 Discharge Orders: Anticipated Discharge Date: Anticipated Discharge [id number] Anticipated Discharge Time18:48 DNAR: Code Status at [...] Review of Medication Reconciliation and Orders Completedby LOGISTICS ACCOUNT MANAGER Reviewing ProviderCoALLY Gatica at 23-Dec-2021 18:48:55 Electronic Signatures: Amelia Zamora (LOGISTICS ACCOUNT MANAGER-CNM) (Signed 23-Dec-2021 18:48) Authored: Discharge Orders, Triage OB, Provider FINAL REVIEW of Orders, Gold Form - Java Enterprise Architect Summary Last Updated: 23-Dec-2021 18:48 by Amelia Zamora (LOGISTICS ACCOUNT MANAGER-CNM) [facility] Order Reconciliationon 12-23 Order Reconciliation Page 1 Discharge Reconciliation Document Reconciliation Type: Discharge requested on behalf of Amelia Zamora (Advanced Practice Nurse) done by Amelia Zamora (LOGISTICS ACCOUNT MANAGER-CNM) Discharge - Reconciliation: 23-Dec-2021 18:47 by: Amelia Zamora (LOGISTICS ACCOUNT MANAGER-CNM) Home Medications EnteredHOME MEDICATIONS AT DISCHARGE DateReconciliation [...] once a week Normal [facility] Risk Screen - OB Triageon Risk Screen [...] Learning Preferencesverbal instruction Cultural Considerationsnone Developmental Considerationsnone Mosque Considerationsnone Learning Assessment (Other Learner): Other learner availableno Depression/Suicide: Depression Screen: During the past month, have you often been bothered by feeling down, depressed or hopelessno During the past month, have you often had little interest or pleasure in doing thingsno Have you had any thoughts of harming anyone elseno [place] Suicide: Risk Screen Not Applicable/Able to Answerable to be screened In the Past Month: Have you wished you were or could go to sleep and not wake upno In the Past Month: Have you had any actual thoughts of killing yourselfno Lifetime: Have you ever done, started to do, or prepared to do anything to end your lifeno [place] Suicide Risknegative Family Violence: Abuse Screen: Are [...] Updated: 23-Dec-2021 17:47 by Shu Huff (GRACIA) [facility] Triage Note - OB v4on 2021 Triage Note - OB v4 Triage: General Info: Time of Arrival on Sqzu15-Kyr-6683 17:33 [place] Ac[place] Level3 Chief Complaintdecreased movement Weight in kg119 kilogram(s) Weight in lje608.3 pound(s) Weight Methodactual (measured) Scale Typestanding Height [...] Shu Huff (GRACIA) Normal [facility] No Panel Informationon 12-22 Normal MG-OBGYN-Ri sman 100 [facility] Work Phone: OB Biophysical profile [...] KRYSTAL CABRAL MD Normal [facility] No Panel Informationon 12-15 Normal MG-OBGYN-Ri sman 100 [facility] Work Phone: OB Follow up [...] EFW (oz) 8 oz EFW by: Hadlock (IVY-OB-UX-FL) Extended Magnetizer 5.6 mm Head / Face / Neck [...] age Electronically signed by: KRYSTAL CABRAL MD [facility] Daily Progress Note - OB-Tri ageon 12-12-2021 Daily Progress Note - OB-Triage Current Stage: Stage: Triage OB Dating: EDC/EGA: Final [id number] EGA36 Subjective Data: Antepartum: Vaginal Bleeding: No [...] 48.8 Objective Information: Objective Information: T PRBPMAPSpO2 [id number]/246926% Date/Time12/12 19: 17: 17: 17: 19:41 Range (88 - 113 ) (18 - 18 ) (124 - 124 )/ (83 - 83 ) (96 - 96 ) (91% - 99% ) Pain reported at 12/12 17:26: 0 = None Physical Exam: Constitutional: Alert, conversational, well-appearing Obstetric: FHT: 130, mod variability, +accels, -decels [place]: quiet Eyes: Sclera white, EOM intact, no [...] Testing: NST Interpretation - Baby A: Baseline [id number] Variabilitymoderate (amplitude range 6 to 25 bpm) [...] agrees with d/c home. Padmini Newell, MSN, LOGISTICS ACCOUNT MANAGER, YOUTH CARE SPECIALIST-C Electronic Signatures: Padmini Newell (LOGISTICS ACCOUNT MANAGER-STEAM ROOM ATTENDANT) (Signed 12-Dec-2021 21:28) Authored: Current Stage, OB Dating, Subjective Data, Objective Data, Testing, Assessment and Plan, Note Completion Ghanshyam Falcon) (Signed 12-Dec-2021 22:16) Co-Signer: Current Stage, OB Dating, Subjective Data, Objective Data, Testing, Assessment and Plan, Note Completion Last Updated: 12-Dec-2021 22:16 by Ghanshyam Falcon) Normal [facility] Discharge [id number] 022 Discharge Profile2 Discharge Orders: DNAR: Code [...] Review of Medication Reconciliation and Orders Completedby LOGISTICS ACCOUNT MANAGER Reviewing ProviderTERRY Lindquist at 12-Dec-2021 21:19:15 Electronic Signatures: Padmini Newell (LOGISTICS ACCOUNT MANAGER-STEAM ROOM ATTENDANT) (Signed 12-Dec-2021 21:19) Authored: Discharge Orders, Triage OB, Provider FINAL REVIEW of Orders, Gold Form - Java Enterprise Architect Summary Last Updated: 12-Dec-2021 21:19 by Padmini Newell (LOGISTICS ACCOUNT MANAGER-[facility]) Normal [facility] GROUP B STREP SCREENon 12-12 GROUP B STREP SCREEN PATIENT: SA CHRISTEL ROY LOCATION: C0541 BILL#: [id number] : 86 AGE: SEX: F ORDERED BY: TOM BULL SOURCE: VAG-RECTAL COLLECTED: 12/12/21 00:00 ANTIBIOTICS AT MELISSA.: RECEIVED : 12/12/21 22:14 SITE: R E S U L T S GROUP B STREP SCREEN FINAL 12/15/21 12:37 NEGATIVE FOR GROUP B BETA STREP. Normal [facility] Comment on above: Performed By: #### O COMPUGRAPH OPERATOR #### [facility] [address] [place] [address] Laboratory - Microbiology an d Antimicrobial susceptibilityon 12-12-2021 Bacteria identified Aer cx Nom (Genital specimen) -[address] [place] Work Phone: Order Reconciliationon 12-12 Order Reconciliation Page 1 Discharge Reconciliation Document Reconciliation Type: Discharge requested on behalf of Padmini Newell (Advanced Practice Nurse) done by Padmini Newell (LOGISTICS ACCOUNT MANAGER-STEAM ROOM ATTENDANT) Discharge - Reconciliation: 12-Dec-2021 21:19 by: Padmini Newell (LOGISTICS ACCOUNT MANAGER-STEAM ROOM ATTENDANT) Home Medications EnteredHOME MEDICATIONS AT DISCHARGE DateReconciliation [...] once a week Normal [facility] Risk Screen - OB Triageon Risk Screen [...] Learning Preferencesverbal instruction Cultural Considerationsnone Developmental Considerationsnone Mosque Considerationsnone Learning Assessment (Other Learner): Other learner availableno Depression/Suicide: Depression Screen: During the past month, have you often been bothered by feeling down, depressed or hopelessno During the past month, have you often had little interest or pleasure in doing thingsno Have you had any thoughts of harming anyone elseno [place] Suicide: Risk Screen Not Applicable/Able to Answerable to be screened In the Past Month: Have you wished you were or could go to sleep and not wake upno In the Past Month: Have you had any actual thoughts of killing yourselfno Lifetime: Have you ever done, started to do, or prepared to do anything to end your lifeno [place] Suicide Risknegative Family Violence: Abuse Screen: Are you or have you been threatened or abused physically, emotionally, or sexually by anyoneno Do you feel UNSAFE going back to the place where you are livingno Clinical assessment: Are there any apparent signs of injuries/behaviors that could be related to abuse/neglectno Electronic Signatures: Johanna Lane (RN) (Signed 12-Dec-2021 17:22) Authored: Allergies, Patient Verification, Travel History, Advance Directives, Riley Fall Screen, Learning Assessment (Patient), Learning Assessment (Other Learner), Depression/Suicide, Family Violence Last Updated: 12-Dec-2021 17:[address] (GRACIA) Normal [facility] Triage Note - OB v4on 2021 Triage Note - OB v4 Triage: General Info: Time of Arrival on [id number]-Ndn-9812 17:06 Arrived Fromphysician office Acuity Level4 Chief ComplaintNRNST Weight in kg121 kilogram(s) Weight in rxx090.7 pound(s) Weight Methodactual (measured) Scale Typestanding Height in feet5 feet Height in inches1.97 inch(es) Height in cm157.4 centimeter(s) Height Methodstated BMI (kg/m2)48.84 square meter Home Meds have been Reviewed and Verified with Patient/Familyyes Info: Gravida1 Term Deliveries0 Deliveries0 Abortions0 Living Children0 Patient stated [id number] Calculation of EGA based on patient stated EDD36 Records availableyes Trimester Care Initiatedfirst Care ProviderCNM Current Risksnone Substance: Smoking Statusnever smoker Alcohol Usedenies Drug Usedenies Disposition/Disch: Dispositiondischarged from facility, home with own care Discharge/Transfer Summary Noteurgent maternal warning signs, daily movements Patient Meets Criteria for Home Blood Pressure Monitorno Admission/Observation/Dis charge/Transfer Date/Wywd63-Kty-2634 21:28 Discharged Accompanied Byspouse Discharge Modeambulatory Transportation [...] 12-Dec-2021 21:28 by Zayda Landa (GRACIA) Normal [facility] No Panel Informationon 11-13 Never MG-OBGYN-We [place] [...] at allQ8: No, not all allQ9: No, ejtmzE43: Never No Panel Informationon 11-06 Normal MG-OBGYN-We [place] 2420 DO Work Phone: Please click on the link to view the study images Normal -[facility] on Work Phone: OB Biophysical [...] EFW (oz) 14 oz EFW by: Hadlock (VUL-SS-OW-FL) Extended Magnetizer 5.8 mm Head / Face / Neck [...] JANINE BOWMAN MD Normal [facility] OB Follow up or repeat scano n [...] EFW (oz) 14 oz EFW by: Hadlock (HXH-ST-RA-FL) Extended Magnetizer 5.8 mm Head / Face / Neck [...] JANINE BOWMAN MD Normal [facility] Coronavirus 2019 RNA by PCR, Symptomaticon 10-27-2021 Coronavirus 2019 RNA by PCR, Symptomatic Detected Abnormal See Below Raúl ramírez 2323 DO Work Phone: Comment on above: SOURCE: [...] complexity testing. Testing is performed in the [facility] laboratory located at [address] [place] [address].SARS-CoV-2/Flu/RSV Multiplex Test: Fact sheet for providers: https://www.fda.gov/media/282026/downloadFact sheet for patients: https://www.fda.gov/media/784827/download Covid 19 Resultson 2 SARS-CoV-2 (COVID-19) RNA [...] You may also be contacted by the [facility] to see if any of your [...] or Naproxen (Aleve) can also be used. Nqcj-ufc-nzwjutb cough and cold medicines can be used according to the instructions on the package. Some jzij-fiu-alluqhr medicines also contain acetaminophen. Make sure you [...] water are not available, use alcohol-based hand hospital intern. Avoid touching your eyes, nose, and mouth [...] content not included)... Normal [facility] GLUCOSE,1 HR SCREEN, PREGon 10-04-2021 Glucose [Mass/Vol] 116 mg/dL Normal <135 [facility] Comment on above: Result Comment: Diag nostic value with glucose loading dose of 50 g. Reference values from [place] [employer]. Diabetes Care 2015;38(Suppl.1):S8-S16 Performed By: #### O COMPUGRAPH OPERATOR #### [facility] [address] [place] [address] RUBELLA IGG ABon 10-04-2021 RUBELLA IGG AB Negative Normal [facility] Comment on above: Result Comment: INTE RPRETATIVE [...] assays. Performed By: #### T +S #### [facility] [address] [place] [id number] SYPHILIS SCREENING WITH REFL EXon 10-04-2021 SYPHILIS TOTAL AB Non-Reactive Normal NONREACTIVE [facility] Comment on above: Result Comment: No s ignificant level of Treponema pallidum antibody detected. Repeat testing in 2 to 4 weeks may be considered if early infection or incubating syphilis infection is suspected. Performed By: #### T +S #### [facility] [address] [place] [address] CBC ANEMIA PANEL WITH REFLEX ,PREGNANCYon 10-03-2021 Erythrocyte distribution width (RBC) [Ratio] 14.0 % Normal 11.5 - 14.5 [facility] Comment on above: Performed By: #### T +S #### [facility] [address] [place] [address] Hematocrit (Bld) [Volume fraction] 34.7 % Low 36.0 - 46.0 [facility] Comment on above: Performed By: #### T +S #### [facility] [address] [place] [address] Hemoglobin (Bld) [Mass/Vol] 11.1 g/dL Low 12.0 - 16.0 [facility] Comment on above: Performed By: #### T +S #### [facility] [address] [place] [address] MCHC (RBC) [Mass/Vol] 32.0 g/dL Normal 32.0 - 36.0 [facility] Comment on above: Performed By: #### T +S #### [facility] [address] [place] [address] MCV (RBC) [Entitic vol] 91 fL Normal 80 - 100 [facility] Comment on above: Performed By: #### T +S #### [facility] [address] [place] [address] Platelets (Bld) [#/Vol] 279 10*3/uL Normal 150 - 450 [facility] Comment on above: Performed By: #### T +S #### [facility] [address] [place] [address] RBC 3.81 x10E12/L Low 4.00 - 5.20 [facility] Comment on above: Performed By: #### T +S #### [facility] [address] [place] [address] REFLEX ADDED, ANEMIA PANEL NONE Normal [facility] Comment on above: Performed By: #### T +S #### [facility] [address] [place] [address] WBC (Bld) [#/Vol] 11.1 10*3/uL Normal 4.4 - 11.3 [facility] Comment on above: Performed By: #### T +S #### [facility] [address] [place] [address] Glucose, 1 Hour Screen, Preg nancyon 10-03-2021 Glucose 1 Hr post 50 g glucose PO [Mass/Vol] 116 mg/dL <135 MG-VIKTORIA ramírez 2420 DO Work Phone: Comment on above: Diagnostic value wit h glucose loading dose of 50 g. Reference values from [place] [employer]. Diabetes Care 2015;38(Suppl.1):S8-S16 Laboratory - [...] Below [facility]-OBGYN-[facility] [place] 2420 DO Work Phone: [phone] Comment on above: Reference Range: 4.0 0 - 5.20 WBC (Bld) [#/Vol] 11.1 10*3/uL 4.4 - 11.3 MG-SEWER AND INSPECTOR-[facility] [place] 2420 DO Work Phone: [phone] No Panel Informationon 10-03 NONE [facility] [place] 2420 DO Work Phone: [phone] Rubella IgG Antibodyon 10-03 Rubella virus IgG [...] Lab Specimen Source Normal [facility] Comment on above: Performed By: #### T +S #### [facility] [address] [place] [address] T. pallidum IgG+IgM IA Ql (S) Non-Reactive [...] EFW (oz) 1 oz EFW by: Hadlock (SEL-SD-TJ-FL) Extended Magnetizer 7.9 mm CM 6.5 mm 85% Nicolaides [...] Normal LVOT view: Normal 3-vessel view: Normal 3-xsjrrs-gnorwik view: Normal Heart / Thorax Situs: situs [...] content not included)... Normal [facility] No Panel Informationon 06-30 Normal MG-OBGYN-MA C [...] gestational sac with a live fetus - [place] rump length is consistent with given SLIME [...] Pexsters NT 1.80 mm Anatomy Heart: Normal [place] and [place]. Stomach: Visible, with correct situs. [...] FLEX HOWE MD Normal [facility] OB Repeat 1st Trimester TAon 06-30-2021 OB [...] gestational sac with a live fetus - [place] rump length is consistent with given SLIME [...] Pexsters NT 1.80 mm Anatomy Heart: Normal [place] and [place]. Stomach: Visible, with correct situs. [...] FLEX HOWE MD Normal [facility] TOBACCO SCREEN [facility] AN ONLYon 06-24-2021 TOBACCO SCREEN, URINE Negative Normal [facility] Comment on above: Result Comment: Coti nine, a metabolite of nicotine, is measured to screen for nicotine exposure. The cut-off is set at 300ng/mL to detect active exposure (smoking). This test was developed and its performance characteristics were determined by the [facility]. Performed By: #### O COMPUGRAPH OPERATOR #### [facility] [address] [place] [address] AN ONLYon 06-23-2021 Cotinine Screen Ql (U) Negative MG -OBGYN-MA C [address] [place] Work Phone: Comment on above: Cotinine, a metaboli te of nicotine, is measured to screen for nicotine exposure. The cut-off is set at 300ng/mL to detect active exposure (smoking).This test was developed and its performance characteristics were determined by the [facility]. GC + CHLAMYDIA BY AMPLIFIED DETECTIONon 06-17-2021 CHLAMYDIA TRACH.,AMPLIFIED Negative Normal Negative [facility] Comment on above: Result Comment: The APTIMA Combo 2 assay is FDA-approved for Chlamydia trachomatis and Neisseria gonorrhoeae testing on female endocervical and vaginal swabs, ThinPrep liquid pap samples, male urine samples and urethral swabs. Performance characteristics for Chlamydia trachomatis and Neisseria gonorrhoeae testing on specific btv-LVV-solcnfkn sample types (female urine samples) have been validated by [facility]. This laboratory is certified by CLIA to perform high complexity testing. Samples from all other sites are not validated for this method. Performed By: #### O COMPUGRAPH OPERATOR #### [facility] [address] [place] [address] N.GONORRHEA,AMPLIFIED Negative Normal Negative [facility] Comment on above: Result Comment: The APTIMA Combo 2 assay is FDA-approved for Chlamydia trachomatis and Neisseria gonorrhoeae testing on female endocervical and vaginal swabs, ThinPrep liquid pap samples, male urine samples and urethral swabs. Performance characteristics for Chlamydia trachomatis and Neisseria gonorrhoeae testing on specific dxq-RBX-eixesdze sample types (female urine samples) have been validated by [facility]. This laboratory is certified by CLIA to perform high complexity testing. Samples from all other sites are not validated for this method. Performed By: #### O COMPUGRAPH OPERATOR #### [facility] [address] [place] [id number] PATH REVIEW-HGB IDENTIFICATI ONon 06-17-2021 PATH REV-HGB IDENT. R.DUMONT Normal [facility] Comment on above: Result Comment: By h er/his signature above, the Pathologist listed as making the final interpretation certifies that she/he has personally reviewed this case. Performed By: #### O COMPUGRAPH OPERATOR #### [facility] [address] [place] [address] HEMOGLOBIN IDENTIFICATIONon 06-16-2021 HEMOGLOBIN A 97.0 % Normal [facility] Comment on above: Performed By: #### H MAGGI ####[id number] [place] [address] HEMOGLOBIN A2 2.6 % Normal [facility] Comment on above: Result Comment: HGB A2 values may be falsely elevated in the presence of HGB S. Performed By: #### H MAGGI ####[id number] [place] [address] HEMOGLOBIN F 0.4 % Normal [facility] Comment on above: Performed By: #### H MAGGI ####[id number] [place] [address] INTERPRETATION SEE COMMENT Normal [facility] Comment on above: Result Comment: Norm al Performed By: #### H MAGGI ####[id number] [place] [address] HEMOGLOBIN A1Con 06-14-2021 Glucose [Mass/Vol] 103 mg/dL Normal [facility] Comment on above: Performed By: #### O COMPUGRAPH OPERATOR #### [facility] [address] [place] [address] HbA1c (Bld) [Mass fraction] 5.2 % Normal [facility] Comment on above: Result Comment: Diag nosis of Diabetes-Adults Non-Diabetic: < or = 5.6% Increased risk for developing diabetes: 5.7-6.4% Diagnostic of diabetes: > or = 6.5% . Monitoring of Diabetes Age (y) Therapeutic Goal (%) Adults: >18 <7.0 Pediatrics: 13-18 <7.5 7-12 <8.0 0- 6 7.5-8.5 [place] [employer]. Diabetes Care 33(S1), Mar 2009. Performed By: #### O COMPUGRAPH OPERATOR #### [facility] [address] [place] [address] CBC ANEMIA PANEL WITH REFLEX ,PREGNANCYon 06-13-2021 Erythrocyte distribution width (RBC) [Ratio] 13.7 % Normal 11.5 - 14.5 [facility] Comment on above: Performed By: #### A NEMI ####[address] [id number] Hematocrit (Bld) [Volume fraction] 38.2 % Normal 36.0 - 46.0 [facility] Comment on above: Performed By: #### A NEMI ####[address] [id number] Hemoglobin (Bld) [Mass/Vol] 11.8 g/dL Low 12.0 - 16.0 [facility] Comment on above: Performed By: #### A NEMI ####[address] [id number] MCHC (RBC) [Mass/Vol] 30.9 g/dL Low 32.0 - 36.0 [facility] Comment on above: Performed By: #### A NEMI ####[address] [id number] MCV (RBC) [Entitic vol] 88 fL Normal 80 - 100 [facility] Comment on above: Performed By: #### A NEMI ####[address] [id number] Platelets (Bld) [#/Vol] 347 10*3/uL Normal 150 - 450 [facility] Comment on above: Performed By: #### A NEMI ####[address] [id number] RBC 4.33 x10E12/L Normal 4.00 - 5.20 [facility] Comment on above: Performed By: #### A NEMI ####[address] [id number] REFLEX ADDED, ANEMIA PANEL NONE Normal [facility] Comment on above: Performed By: #### A NEMI ####[address] [id number] WBC (Bld) [#/Vol] 10.0 10*3/uL Normal 4.4 - 11.3 [facility] Comment on above: Performed By: #### A NEMI ####[facility] [place], [place] [id number] Cult, Urineon 06-13-2021 Bacteria identified Cx Nom (U) [facility] [place] Work Phone: GC + CHLAMYDIA BY AMPLIFIED DETECTIONon 06-13-2021 Lab Specimen Source Thin Prep-Endocervical Normal [facility] Comment on above: Performed By: #### O COMPUGRAPH OPERATOR #### [facility] [address] [place] [address] GC + Chlamydia By Amplified Detectionon 06-13-2021 [...] trachomatis and Neisseria gonorrhoeae testing on specific pze-DWM-fvslkjig sample types (female urine samples) have been validated by [facility]. This laboratory is certified by CLIA to [...] trachomatis and Neisseria gonorrhoeae testing on specific wwl-SKZ-ipymeigp sample types (female urine samples) have been validated by [facility]. This laboratory is certified by CLIA to perform high complexity testing. Samples from all other sites are not validated for this method. HEPATITIS B SURFACE AGon HEP.B SURFACE AG Non-Reactive Normal NONREACTIVE [facility] Comment on above: Result Comment: Biot in interference may cause falsely decreased results. Patients taking a Biotin dose of up to 5 mg/day should refrain from taking Biotin for 24 hours before sample collection. Providers may contact their local laboratory for further information. Performed By: #### T +S #### [facility] [address] [place] [address] HEPATITIS C ABon 06-13-2021 HEPATITIS C AB Non-Reactive Normal NONREACTIVE [facility] Comment on above: Result Comment: Resu lts from patients taking biotin supplements or receiving high-dose biotin therapy should be interpreted with caution due to possible interference with this test. Providers may contact their local laboratory for further information. Performed By: #### H CVAB ####[id number] [place] [address] HIV 1/2 ANTIGEN/ANTIBODY SCR EEN WITH REFLEX TO CONFIRMATIONon 06-13-2021 HIV 1/2 AG/AB SCREEN Non-Reactive Normal NONREACTIVE U [facility] Comment on above: Result Comment: HIV Ag/Ab screen is performed using the Siemens PharmAssistant HIV Ag/Ab Combo assay which detects the presence of HIV p24 antigen as well as antibodies to HIV-1 (Group M and O) and HIV-2. . No laboratory evidence of HIV infection. If acute HIV infection is suspected, consider testing for HIV RNA by PCR (viral load). Performed By: #### H IV ####[id number] [place] [address] HIV 1+2 Ab Qn (S) Non-Reactive See Below [employer] Work Phone: Comment on above: SOURCE: Reference Ra nge: NONREACTIVE HIV Ag/Ab screen is performed using the Siemens MynglellEnpocket HIV Ag/Ab Combo assay which detects the presence of HIV p24 antigen as well as antibodies to HIV-1 (Group M and O) and HIV-2..No laboratory evidence of HIV infection. If acute HIV infection is suspected, consider testing for HIV RNA by PCR (viral load). Hemoglobin A1Con 06-13-2021 Glucose [Mass/Vol] 103 mg/dL [employer] Work Phone: HbA1c (Bld) [Mass fraction] 5.2 % [employer] Work Phone: Comment on above: Diagnosis of Diabete s-Adults Non-Diabetic: < or = 5.6% Increased risk for developing diabetes: 5.7-6.4% Diagnostic of diabetes: > or = 6.5%. Monitoring of Diabetes Age (y) Therapeutic Goal (%) Adults: >18 <7.0 Pediatrics: 13-18 <7.5 7-12 <8.0 0- 6 7.5-8.5 [place] [employer]. Diabetes Care 33(S1), Mar 2009. Hepatitis B Surface Antigeno n 06-13-2021 Hepatitis B Surface Antigen Non-Reactive See Below [employer] Work Phone: Comment on above: SOURCE: Reference Ra delaneye: NONREACTIVE Biotin interference may cause falsely decreased results. Patients taking a Biotin dose of up to 5 mg/day should refrain from taking Biotin for 24 hours before sample collection. Providers may contact their local laboratory for further information. SOURCE: Reference nge: NONREACTIVE Results from patients taking biotin supplements or receiving high-dose biotin therapy should be interpreted with caution due to possible interference with this test. Providers may contact their local laboratory for further information. LMPon 06-13-2021 Fall risk assessment a) No falls within the last year [facility]-[employer] 2420 DO Work Phone: Last menstrual period start date 29Mar2021 MG-OBGYN-[employer] 2420 DO Work Phone: Tobacco use status [facility] b) No [facility]-OB[facility]N-[facility] 2420 DO Work Phone: Laboratory - Blood bankon ABO group Nom (Bld) A [employer] Work Phone: Blood group antibody screen Ql Negative [employer] Work Phone: Rh immune globulin screen (Bld) [Interp] Positive [employer] Work Phone: Laboratory - Cytologyon 04-0 Cytology report Cyto stain.thin prep Doc (Cvx/Vag) Date of Procedure: 06/13/2021 Pathologist: [facility], Cytology Date Reported: 06/24/2021 Date Received: 06/13/2021 Submitting Physician: TOM BULL CNM FINAL CY[facility] [address] [place] Work Phone: Laboratory - Hematology and Cell countson 06-13-2021 Erythrocyte distribution width (RBC) [Ratio] 13.7 % See Below [employer] Work Phone: Comment on above: Reference Range: 11. 5 - 14.5 Hematocrit (Bld) [Volume fraction] 38.2 % See Below [employer] Work Phone: Comment on above: Reference Range: 36. 0 - 46.0 Hemoglobin (Bld) [Mass/Vol] 11.8 g/dL below low threshold See Below [employer] Work Phone: Comment on above: Reference Range: 12. 0 - 16.0 MCHC (RBC) [Mass/Vol] 30.9 g/dL below low threshold See Below [employer] Work Phone: Comment on above: Reference Range: 32. 0 - 36.0 MCV (RBC) [Entitic vol] 88 fL 80 - 100 [employer] Work Phone: Platelets (Bld) [#/Vol] 347 10*3/uL 150 - 450 [employer] Work Phone: RBC (Bld) [#/Vol] 4.33 {x10E12/L} See Below [employer] Work Phone: Comment on above: Reference Range: 4.0 0 - 5.20 WBC (Bld) [#/Vol] 10.0 10*3/uL 4.4 - 11.3 [employer] Work Phone: No Panel Informationon 06-13 NONE [facility] Work Phone: SEE COMMENT [facility]N-[place] C [address] [place] Work Phone: Comment on above: Normal 2.6 % [facility] C [address] [place] Work Phone: Comment on above: HGB A2 values may be falsely elevated in the presence of HGB S. 0.4 % [facility] C [address] [place] Work Phone: 97.0 % [facility]N-[facility] C [address] [place] Work Phone: Never [facility]-OBGYN-[facility] [place] 2420 DO Work Phone: [phone] Not depressed [facility] [place] 2420 DO Work Phone: [phone] [facility] [place] 2420 DO Work Phone: [phone] Comment on above: Q1: As much as I alw ays couldQ2: As much as I ever didQ3: Not very oftenQ4: Yes, sometimesQ5: No, not muchQ6: No, I have been coping as well as everQ7: No, not at allQ8: No, not all allQ9: No, [id number]: Never Path Review-HGB Identificati onon 06-13-2021 Path Review-HGB Identification RYARELI [facility]-OB[facility]N-[facility] C [address] [place] Work Phone: Comment on above: By her/his signature above, the Pathologist listed as making the final interpretation certifies that she/he has personally reviewed this case. RUBELLA IGG ABon 06-13-2021 RUBELLA IGG AB Equivocal Normal [facility] Comment on above: Result Comment: INTE RPRETATIVE [...] in serological assays. Performed By: #### O COMPUGRAPH OPERATOR #### [facility] [address] [address] Rubella IgG Antibodyon 06-13 Rubella virus IgG IA Ql Equivocal [employer] Work Phone: Comment on above: INTERPRETATIVE COMME [...] AB Non-Reactive Normal NONREACTIVE [facility] Comment on above: Result Comment: No s ignificant level of Treponema pallidum antibody detected. Repeat testing in 2 to 4 weeks may be considered if early infection or incubating syphilis infection is suspected. Performed By: #### S YPHR #### [facility] [address] [place], [place] [id number] Lab Specimen Source Normal [facility] Comment on above: Performed By: #### S YPHR #### [facility] [address] [place], [place] [id number] Performed By: #### H IV ####[id number], [place] Performed By: #### H CVAB ####[id number], [place] Performed By: #### T +S #### [facility] [address] [place] [address] T. pallidum IgG+IgM IA Ql (S) Non-Reactive See Below -Genetics -[facility] Work Phone: Comment on above: SOURCE: Reference Ra nge: NONREACTIVENo significant level of Treponema pallidum antibody detected. Repeat testing in 2 to 4 weeks may be considered if early infection or incubating syphilis infection is suspected. TYPE + SCREENon 06-13-2021 ABO TYPE A Normal [facility] Comment on above: Performed By: #### T +S #### [facility] [address] [place] [address] RH TYPE Positive Normal [facility] Comment on above: Performed By: #### T +S #### [facility] [address] [place] [address] URINE CULTURE,BACTERIALon URINE CULTURE,BACTERIAL PATIENT: HSU ROY LOCATION: [facility] [place] BILL#: [id number] : 86 AGE: SEX: F ORDERED BY: TOM BULL SOURCE: URINE COLLECTED: 06/13/21 00:00 ANTIBIOTICS AT MELISSA.: RECEIVED : 06/13/21 16:41 SITE: Unspecified R E S U L T S URINE CULTURE,BACTERIAL FINAL 06/14/21 10:39 NO SIGNIFICANT GROWTH. Normal [facility] Comment on above: Performed By: #### O COMPUGRAPH OPERATOR #### [facility] [address] [place], [place] No Panel Informationon 06-04 Normal -OBGYN-MA C 1200 [place] Work Phone: OB Complete [...] JANINE BOWMAN MD Normal [facility] HCG,BETA-QUANTITATIVEon 04-09 HCG,BETA-QUANTITATIVE 79 mIU/mL Abnormal [facility] Comment on above: Result Comment: Low- level [...] HCG measurement is performed using the Elias Saravanan Access Immunoassay which detects intact HCG and free beta HCG subunit. This test is not indicated for use as a tumor marker. HCG testing is performed using a different test methodology at [facility] than other legacy [facility]. Direct result comparison should only be made within the same method. REF VALUES NON FEMALE <5 MALES <5 Performed By: #### H QU ####[facility] [place], [place] [id number] Office Visit (Family Medicin e)on 05-01-2021 Follow-up [...] Beta Quantitative; Status:Active - Retrospective Authorization; Requested for:[id number]; PCOS (polycystic ovarian syndrome) Start: metFORMIN HCl [...] All medical record entries made by the Loren were at my direction and personally dictated [...] a) No falls within the last year -[facility] Work Phone: Tobacco use status [facility] b) No -[facility] on Work Phone: Blood Pressure Cuff Sizeon 1 Blood Pressure Cuff Size Adult -[facility] on Work Phone: Tobacco Screening.on 021 Last menstrual period start date [id number] -[facility] on Work Phone: Tobacco Screening. b) No -[facility] Work Phone: Tobacco Screening.on 021 Last menstrual period start date [id number] -[facility] on Work Phone: Tobacco Screening. b) No -[facility] on Work Phone: Estradiol, Serumon 1 E2 [Mass/Vol] 169 pg/mL [facility]N-[facility] Work Phone: Comment on above: Estradiol measuremen t is performed using the Elias Saravanan Access Sensitive Estradiol Immunoassay. Estradiol testing is performed using a different test methodology at [facility] than other [facility]. Direct result comparison should only be made within the same method.REF VALUESEARLY FOLLICULAR 22-115MID FOLLICULAR 25-115OVULATORY PEAK 32-517MID LUTEAL 37-246POSTMENOPAUSE <15- 25MALE <15- 32 Luteinizing Hormone, Serumon 03-13-2020 Lutropin Qn 25.2 {IU/L} [facility] Work Phone: Comment on above: Luteinizing Hormone [LH] is performed using the Elias [place] Access Immunoassay. LH testing is performed using a different test methodology at [facility] than other [facility]. Direct result comparison should only [...] Comment on above: . NEAR BORD AGE VDIAL RABLE OPTIMAL HIGH HIGH VERY HIGH 0-19 [...] Work Phone: PROGESTERONEon 06-30-2019 PROGESTERONE <0.[address] [facility] Comment on above: Result Comment: Note new reference range as of 05/09/2019. REF VALUES MALE <0.3- 1.2 FOLLICULAR PHASE <0.3- 1.4 LUTEAL PHASE 3.3-25.6 MID-LUTEAL PHASE 4.4-28.0 POSTMENOPAUSAL <0.3- 0.7 FEMALES: 1ST TRIMESTER 11.2- 90.0 2ND TRIMESTER 25.6- 89.4 3RD TRIMESTER 48.4-422.5 . Patients receiving DHEA-S supplements may show false elevation of progesterone for results near 1.0 ng/mL. Contact laboratory at [phone] if alternative testing is needed. Performed By: #### P YARELI #### [facility] [address] [place] [address] Progesterone, Serumon 2019 Progesterone [Mass/Vol] ng/mL [facility] Work Phone: Comment on above: Note new reference r lula as of 05/09/2019.REF VALUESMALE <0.3- 1.2 FOLLICULAR PHASE <0.3- 1.4 LUTEAL PHASE 3.3-25.6 MID-LUTEAL PHASE 4.4-28.0POSTMENOPAUSAL <0.3- 0.7 FEMALES: 1ST TRIMESTER 11.2- 90.0 2ND TRIMESTER 25.6- 89.4 3RD TRIMESTER 48.4-422.5 .Patients receiving DHEA-S supplements may show false elevation ofprogesterone for results near 1.0 ng/mL. Contact laboratory [phone] if alternative testing is needed. Vital Signs Date Time Vital Sign Value Performing Clinician Facility 12-13-2024 11:55-0400 Body height 157.[address] Judie Bella MD Work Phone: [facility] 12-13-2024 11:55-0400 Body mass index (BMI) [Ratio] 50.3 kg/m2 Dr. Judie Bella MD Work Phone: [facility] 12-13-2024 11:55-0400 Body weight 124.[address] Judie Bella MD Work Phone: [facility] 12-13-2024 11:48-0400 Body temperature 98.5 [degF] Dr. Judie Bella MD Work Phone: [facility] 12-13-2024 11:48-0400 Diastolic blood pressure 86 mm[Hg] Dr. Judie Bella MD Work Phone: [facility] 12-13-2024 11:48-0400 Heart rate 96 /min Dr. Judie Bella MD Work Phone: [facility] 12-13-2024 11:48-0400 Respiratory rate 18 /min Dr. Judie Bella MD Work Phone: [facility] 12-13-2024 11:48-0400 SaO2% (BldA) [Mass fraction] 98 % Dr. Judie Bella MD Work Phone: [facility] 12-13-2024 11:48-0400 Systolic blood pressure 127 mm[Hg] Dr. Judie Bella MD Work Phone: [facility] 12-13-2024 09:21-0400 Body height 157.[address] Judie Bella MD Work Phone: [facility] 12-13-2024 09:21-0400 Body mass index (BMI) [Ratio] 50.5 kg/m2 Dr. Judie Bella MD Work Phone: [facility] 12-13-2024 09:21-0400 Body weight 125.[address] Judie Bella MD Work Phone: [facility] 12-13-2024 09:21-0400 Diastolic blood pressure 85 mm[Hg] Dr. Judie Bella MD Work Phone: [facility] 12-13-2024 09:21-0400 Systolic blood pressure 126 mm[Hg] Dr. Judie Bella MD Work Phone: [facility] 12-08-2024 09:44-0400 Body weight 125.[address] Judie Bella MD Work Phone: [facility] 12-08-2024 09:44-0400 Diastolic blood pressure 79 mm[Hg] Dr. Juide Bella MD Work Phone: [facility] 12-08-2024 09:44-0400 Systolic blood pressure 123 mm[Hg] Dr. Judie Bella MD Work Phone: [facility] 12-08-2024 08:49-0400 Body height 157.[address] Judie Bella MD Work Phone: [facility] 11-30-2024 09:44-0400 Body height 157.[address] Judie Bella MD Work Phone: [facility] 11-30-2024 09:44-0400 Body mass index (BMI) [Ratio] 50.5 kg/m2 Dr. Judie Bella MD Work Phone: [facility] 11-30-2024 09:42-0400 Body mass index (BMI) [Ratio] 50.7 kg/m2 Dr. Judie Bella MD Work Phone: [facility] 11-30-2024 09:42-0400 Body weight 125.[address] Judie Bella MD Work Phone: [facility] 11-30-2024 09:42-0400 Diastolic blood pressure 84 mm[Hg] Dr. Judie Bella MD Work Phone: [facility] 11-30-2024 09:42-0400 Systolic blood pressure 129 mm[Hg] Dr. Judie Bella MD Work Phone: [facility] 11-23-2024 09:22-0400 Body height 157.[address] Judie Bella MD Work Phone: [facility] 11-23-2024 09:22-0400 Body mass index (BMI) [Ratio] 50.3 kg/m2 Dr. Judie Bella MD Work Phone: [facility] 11-23-2024 09:22-0400 Body weight 124.[address] Judie Bella MD Work Phone: [facility] 11-23-2024 09:22-0400 Diastolic blood pressure 75 mm[Hg] Dr. Judie Bella MD Work Phone: [facility] 11-23-2024 09:22-0400 Systolic blood pressure 114 mm[Hg] Dr. Judie Bella MD Work Phone: [facility] 10-30-2024 13:49-0400 Body height 157.[address] Tawana Timmons MD Work Phone: [facility] 10-30-2024 13:49-0400 Body mass index (BMI) [Ratio] 49.1 kg/m2 Dr. Tawana Timmons MD Work Phone: [facility] 10-30-2024 13:49-0400 Body weight 121.[address] Tawana Timmons MD Work Phone: [facility] 10-30-2024 13:49-0400 Diastolic blood pressure 83 mm[Hg] Dr. Tawana Timmons MD Work Phone: [facility] 10-30-2024 13:49-0400 Systolic blood pressure 120 mm[Hg] Dr. Tawana Timmons MD Work Phone: [facility] 10-02-2024 09:42-0400 Body height 157.48 cm Carmen SHAYM Work Phone: [facility] 10-02-2024 09:42-0400 Body mass index (BMI) [Ratio] 48.5 kg/m2 Carmen SHAYM Work Phone: [facility] 10-02-2024 09:42-0400 Body weight 120.37 kg Carmen SHAYM Work Phone: [facility] 10-02-2024 09:42-0400 Diastolic blood pressure 83 mm[Hg] Carmen SHAYM Work Phone: [facility] 10-02-2024 09:42-0400 Systolic blood pressure 124 mm[Hg] Carmen SHAYM Work Phone: [facility] 09-01-2024 14:59-0400 Body height 157.48 cm Carmen Perdomo CNM Work Phone: [facility] 09-01-2024 14:57-0400 Body mass index (BMI) [Ratio] 47.4 kg/m2 Carmen Perdomo CNM Work Phone: [facility] 09-01-2024 14:57-0400 Body weight 117.53 kg Carmen Perdomo CNM Work Phone: [facility] 09-01-2024 14:57-0400 Diastolic blood pressure 86 mm[Hg] Carmen Perdomo CNM Work Phone: [facility] 09-01-2024 14:57-0400 Systolic blood pressure 119 mm[Hg] Carmen Perdomo CNM Work Phone: [facility] 08-02-2024 11:04-0400 Body height 157.48 cm Carmen Perdomo CNM Work Phone: [facility] 08-02-2024 11:02-0400 Body mass index (BMI) [Ratio] 48.6 kg/m2 Carmen Perdomo CNM Work Phone: [facility] 08-02-2024 11:02-0400 Body weight 120.65 kg Carmen Perdomo CNM Work Phone: [facility] 08-02-2024 11:02-0400 Diastolic blood pressure 75 mm[Hg] Carmen Perdomo CNM Work Phone: [facility] 08-02-2024 11:02-0400 Systolic blood pressure 118 mm[Hg] Carmen Perdomo CNM Work Phone: [facility] 07-06-2024 15:06-0400 Body height 157.48 cm Carmen SHAYM Work Phone: [facility] 07-06-2024 15:06-0400 Body mass index (BMI) [Ratio] 46 kg/m2 Carmen Perdomo CNM Work Phone: [facility] 07-06-2024 15:06-0400 Body weight 114.07 kg Carmen Perdomo CNM Work Phone: [facility] 07-06-2024 15:06-0400 Diastolic blood pressure 85 mm[Hg] Carmen Perdomo CNM Work Phone: [facility] 07-06-2024 15:06-0400 Systolic blood pressure 123 mm[Hg] Carmen Perdomo CNM Work Phone: [facility] 06-09-2024 13:11-0400 Body height 157.48 cm Carmen Perdomo CNM Work Phone: [facility] 06-09-2024 13:11-0400 Body mass index (BMI) [Ratio] 46.5 kg/m2 Carmen Perdomo CNM Work Phone: [facility] 06-09-2024 13:11-0400 Body weight 115.43 kg Carmen Perdomo CNM Work Phone: [facility] 06-09-2024 13:11-0400 Diastolic blood pressure 80 mm[Hg] Carmen Perdomo CNM Work Phone: [facility] 06-09-2024 13:11-0400 Systolic blood pressure 125 mm[Hg] Carmen Perdomo CNM Work Phone: [facility] 05-03-2024 12:07-0500 Body height 157.48 cm Carmen Perdomo CNM Work Phone: [facility] 05-03-2024 12:05-0500 Body mass index (BMI) [Ratio] 45.3 kg/m2 Carmen Perdomo CNM Work Phone: [facility] 05-03-2024 12:05-0500 Body weight 112.49 kg Carmen Perdomo CNM Work Phone: [facility] 05-03-2024 12:05-0500 Diastolic blood pressure 66 mm[Hg] Carmen Perdomo CNM Work Phone: [facility] 05-03-2024 12:05-0500 Systolic blood pressure 99 mm[Hg] Carmen Perdomo CNM Work Phone: [facility] 05-30-2024 22:09-0400 Diastolic Blood Pressure Non-Invasive 78 mm[Hg] JOSEPH DURESKA DO [facility] 08-05-2023 22:09-0400 Heart rate 96 /min JOSEPH DURESKA DO [facility] 08-05-2023 22:09-0400 Respiratory rate 16 /min JOSEPH DURESKA DO [facility] 08-05-2023 22:09-0400 Systolic Blood Pressure Non-Invasive 150 mm[Hg] JOSEPH DURESKA DO [facility] 08-05-2023 17:08-0400 Diastolic Blood Pressure Non-Invasive 108 mm[Hg] JOSEPH DURESKA DO [facility] 08-05-2023 17:08-0400 Heart rate 98 /min JOSEPH DURESKA DO [facility] 08-05-2023 17:08-0400 Respiratory rate 16 /min JOSEPH DURESKA DO [facility] 08-05-2023 17:08-0400 Systolic Blood Pressure Non-Invasive 154 mm[Hg] JOSEPH DURESKA DO [facility] 08-05-2023 15:50-0400 Body temperature 98.6 [degF] JOSEPH DURESKA DO [facility] 08-05-2023 15:50-0400 Body weight 100 kg JOSEPH DURESKA DO [facility] 08-05-2023 15:50-0400 Diastolic Blood Pressure Non-Invasive 82 mm[Hg] JOSEPH DURESKA DO [facility] 08-05-2023 15:50-0400 Heart rate 102 /min JOSEPH DURESKA DO [facility] 08-05-2023 15:50-0400 Respiratory rate 20 /min JOSEPH DEL CID DO [facility] 08-05-2023 15:50-0400 Systolic Blood Pressure Non-Invasive 170 mm[Hg] JOSEPH DEL CID DO [facility] 02-04-2022 14:40-0500 Body height 157.48 cm Celio Zhou Work Phone: YM-UADTY-Rlyvdtxx 2420 DO Work Phone: 02-04-2022 14:40-0500 Body mass index (BMI) [Ratio] 44.26 kg/m2 Celio Ledesmas Work Phone: SF-FTNIS-Sgtkjcow 2420 DO Work Phone: 02-04-2022 14:40-0500 Body surface area Derived from formula 2.07 m2 Celio Zhou Work Phone: XB-YBXWF-Bpxwnmxw 2420 DO Work Phone: 02-04-2022 14:40-0500 Body weight 109.77 kg Celio Zhou Work Phone: SO-WQLOE-Yzhlzzfi 2420 DO Work Phone: 02-04-2022 14:40-0500 Diastolic blood pressure 84 mm[Hg] Celio Ledesmas Work Phone: AZ-FEAQL-Fdhvuwzl 2420 DO Work Phone: 02-04-2022 14:40-0500 Systolic blood pressure 120 mm[Hg] Celio Ledesmas Work Phone: OZ-YHTJT-Roylvtld 2420 DO Work Phone: 02-04-2022 14:40-0500 0 1 Celio W Escolas Work Phone: XW-XJLJB-Rvmqaglp 2420 DO Work Phone: Comment on above: [facility] 01-19-2022 14:09-0500 Diastolic blood pressure 83 mm[Hg] Celio Zhou Work Phone: NB-SSDZK-HNI [address] [place] Work Phone: 01-19-2022 14:09-0500 Systolic blood pressure 128 mm[Hg] Celio Zhou Work Phone: AW-HLOVD-TBK [address] [place] Work Phone: 01-15-2022 15:07-0500 Body height 157.48 cm Celio Zhou Work Phone: ID-XGRDF-Bbdvape 2nd Fl Work Phone: 01-15-2022 15:07-0500 Diastolic blood pressure 88 mm[Hg] Celio Zhou Work Phone: PQ-ALEHI-Dcpmtrt 2nd Fl Work Phone: 01-15-2022 15:07-0500 Systolic blood pressure 128 mm[Hg] Celio Zhou Work Phone: JU-ISFBJ-Wnkbnuw 2nd Fl Work Phone: 01-11-2022 14:24-0500 Diastolic blood pressure 97 mm[Hg] [facility] Work Phone: 01-11-2022 14:24-0500 Heart rate 85 /min [facility] Work Phone: 01-11-2022 14:24-0500 Systolic blood pressure 131 mm[Hg] [facility] Work Phone: 01-11-2022 12:46-0500 Body height 157.48 cm [facility] Work Phone: 01-11-2022 12:46-0500 Body mass index (BMI) [Ratio] 45.8 kg/m2 [facility] Work Phone: 01-11-2022 12:46-0500 Body weight 113.85 kg [facility] Work Phone: 01-07-2022 13:18-0400 Body temperature 97.88 [degF] Celio Ledesmas Other Phone: [facility] 01-07-2022 13:18-0400 Diastolic blood pressure 80 mm[Hg] Celio Rosasolas Other Phone: [facility] 01-07-2022 13:18-0400 Heart rate 96 /min Celio Ledesmas Other Phone: [facility] 01-07-2022 13:18-0400 Respiratory rate 20 /min Celio Ledesmas Other Phone: [facility] 01-07-2022 13:18-0400 SaO2% (BldA) [Mass fraction] 97 % Celio Ledesmas Other Phone: [facility] 01-07-2022 13:18-0400 Systolic blood pressure 123 mm[Hg] Celio Ledesmas Other Phone: [facility] 12-31-2021 14:39-0400 Body height 157.48 cm Celio Zhou Work Phone: TZ-LIWMU-RFS [address] [place] Work Phone: 12-31-2021 14:39-0400 Body mass index (BMI) [Ratio] 49.02 kg/m2 Celio Ledesmas Work Phone: XD-IFOSZ-OTM [address] [place] Work Phone: 12-31-2021 14:39-0400 Body surface area Derived from formula 2.16 m2 Celio Ledesmas Work Phone: YH-KYGWF-JTD [address] [place] Work Phone: 12-31-2021 14:39-0400 Body weight 121.56 kg Celio Zhou Work Phone: SQ-BYZMW-YMW [address] [place] Work Phone: 12-31-2021 14:39-0400 Diastolic blood pressure 80 mm[Hg] Celio Zhou Work Phone: AT-CIPTY-HQM [address] [place] Work Phone: 12-31-2021 14:39-0400 Systolic blood pressure 124 mm[Hg] Celio Zhou Work Phone: FM-ZJZHG-PUP [address] [place] Work Phone: 12-24-2021 15:32-0400 Body height 157.48 cm Celio Zhou Work Phone: GE-WHKLX-Pcxyekgx 2420 DO Work Phone: 12-24-2021 15:32-0400 Body mass index (BMI) [Ratio] 48.84 kg/m2 Celio Zhou Work Phone: QT-LUGAM-Jaxokblq 2420 DO Work Phone: 12-24-2021 15:32-0400 Body surface area Derived from formula 2.16 m2 Celio Zhou Work Phone: UM-HQCAJ-Mpfttbrz 2420 DO Work Phone: 12-24-2021 15:32-0400 Body weight 121.11 kg Celio Zhou Work Phone: DF-JBOLH-Cacarrmp 2420 DO Work Phone: 12-24-2021 15:32-0400 Diastolic blood pressure 68 mm[Hg] Celio Zhou Work Phone: KN-LADOY-Ygcdjozq 2420 DO Work Phone: 12-24-2021 15:32-0400 Systolic blood pressure 128 mm[Hg] Celio Zhou Work Phone: AJ-VVMXG-Kjxlahdw 2420 DO Work Phone: 12-17-2021 13:52-0400 Body height 157.48 cm Celio Zhou Work Phone: KF-BMUNA-WHT [address] [place] Work Phone: 12-17-2021 13:52-0400 Body mass index (BMI) [Ratio] 48.93 kg/m2 Celio Zhou Work Phone: EX-ZSOON-SLB [address] [place] Work Phone: 12-17-2021 13:52-0400 Body surface area Derived from formula 2.16 m2 Celio Zhou Work Phone: CK-VOYFF-FCH [address] [place] Work Phone: 12-17-2021 13:52-0400 Body weight 121.34 kg Celio Zhou Work Phone: FE-WJBTX-NSO [address] [place] Work Phone: 12-17-2021 13:52-0400 Diastolic blood pressure 80 mm[Hg] Celio Zhou Work Phone: PT-FILMG-JSN [address] [place] Work Phone: 12-17-2021 13:52-0400 Systolic blood pressure 110 mm[Hg] Celio Zhou Work Phone: MO-BHFES-JKZ [address] [place] Work Phone: 12-12-2021 15:39-0400 Body height 157.48 cm Celio Zhou Work Phone: FB-KFHXP-NSG [address] [place] Work Phone: 12-12-2021 15:39-0400 Body mass index (BMI) [Ratio] 48.65 kg/m2 Celio Zhou Work Phone: EE-TZPJZ-QRN [address] [place] Work Phone: 12-12-2021 15:39-0400 Body surface area Derived from formula 2.16 m2 Celio Ledesmas Work Phone: KS-QTOSC-CRF [address] [place] Work Phone: 12-12-2021 15:39-0400 Body weight 120.66 kg Celio Ledesmas Work Phone: QO-UZMSO-HLQ [address] [place] Work Phone: 12-12-2021 15:39-0400 Diastolic blood pressure 72 mm[Hg] Celio Ledesmas Work Phone: PY-VNCVG-ZJC [address] [place] Work Phone: 12-12-2021 15:39-0400 Systolic blood pressure 112 mm[Hg] Celio Ledesmas Work Phone: GB-VDPZG-EYE [address] [place] Work Phone: 10-03-2021 14:50-0400 Body height 157.48 cm Celio Ledesmas Work Phone: VW-NPQNQ-VRH [address] [place] Work Phone: 10-03-2021 14:50-0400 Body mass index (BMI) [Ratio] 46.46 kg/m2 Celio Ledesmas Work Phone: HH-AHISL-VVR [address] [place] Work Phone: 10-03-2021 14:50-0400 Body surface area Derived from formula 2.12 m2 Celio Ledesmas Work Phone: OS-PABKV-NXP [address] [place] Work Phone: 10-03-2021 14:50-0400 Body weight 115.21 kg Celio Ledesmas Work Phone: KL-LMVWD-EMQ [address] [place] Work Phone: 10-03-2021 14:50-0400 Diastolic blood pressure 70 mm[Hg] Celio Ledesmas Work Phone: PS-PPOBS-RLY [address] [place] Work Phone: 10-03-2021 14:50-0400 Systolic blood pressure 118 mm[Hg] Celio Zhou Work Phone: GL-XHDJM-DDX [address] [place] Work Phone: 09-11-2021 11:20-0400 Body height 157.48 cm Celio Zhou Work Phone: NY-CMIGN-Whdbgyuy 2420 DO Work Phone: 09-11-2021 11:20-0400 Body mass index (BMI) [Ratio] 44.81 kg/m2 Celio Zhou Work Phone: ME-JGMAZ-Louvmiva 2420 DO Work Phone: 09-11-2021 11:20-0400 Body surface area Derived from formula 2.08 m2 Celio Zhou Work Phone: DM-GATZJ-Nyzphtyr 2420 DO Work Phone: 09-11-2021 11:20-0400 Body weight 111.13 kg Celio Zhou Work Phone: BC-YAJFT-Vaodksog 2420 DO Work Phone: 09-11-2021 11:20-0400 Diastolic blood pressure 70 mm[Hg] Celio Zhou Work Phone: TO-HRHXK-Hkrabcix 2420 DO Work Phone: 09-11-2021 11:20-0400 Systolic blood pressure 110 mm[Hg] Celio Zhou Work Phone: EE-UBWFO-Fzrxsazg 2420 DO Work Phone: 09-11-2021 11:20-0400 0 1 Celio Zhuo Work Phone: RV-ELMSP-Cwmgrjhs 2420 DO Work Phone: Comment on above: [facility] 08-07-2021 11:11-0400 Body height 157.48 cm Celio Zhou Work Phone: PR-VGMDN-Vzuoszzs 2420 DO Work Phone: 08-07-2021 11:11-0400 Body mass index (BMI) [Ratio] 43.71 kg/m2 Celio Zhou Work Phone: KL-EXKJU-Wprcyiqk 2420 DO Work Phone: 08-07-2021 11:11-0400 Body surface area Derived from formula 2.06 m2 Celio Zhou Work Phone: LG-HUEDO-Kevyzpmi 2420 DO Work Phone: 08-07-2021 11:11-0400 Body weight 108.41 kg Celio Zhou Work Phone: MH-ZAPGT-Dkdxmanb 2420 DO Work Phone: 08-07-2021 11:11-0400 Diastolic blood pressure 64 mm[Hg] Celio Zhou Work Phone: EA-FCLQT-Fsvgehgn 2420 DO Work Phone: 08-07-2021 11:11-0400 Systolic blood pressure 116 mm[Hg] Celio Zhou Work Phone: VE-CCWCA-Ooxkancr 2420 DO Work Phone: 07-11-2021 16:14-0400 Body height 157.48 cm Celio Zhou Work Phone: BU-QOUJK-Pbunhnwm 2420 DO Work Phone: 07-11-2021 16:14-0400 Body mass index (BMI) [Ratio] 43.53 kg/m2 Celio Zhou Work Phone: KJ-ZYUZF-Rcdjmvau 2420 DO Work Phone: 07-11-2021 16:14-0400 Body surface area Derived from formula 2.06 m2 Celio Zhou Work Phone: AC-KRBVN-Xdcyydaf 2420 DO Work Phone: 07-11-2021 16:14-0400 Body weight 107.96 kg Celio Zhou Work Phone: HQ-IGMHX-Ubfjtths 2420 DO Work Phone: 07-11-2021 16:14-0400 Diastolic blood pressure 70 mm[Hg] Celio Zhou Work Phone: TC-KIIPN-Lqglyaaw 2420 DO Work Phone: 07-11-2021 16:14-0400 Systolic blood pressure 120 mm[Hg] Celio Zhou Work Phone: RN-GZNAV-Pqkcoxmg 2420 DO Work Phone: 06-13-2021 08:39-0400 Body height 157.48 cm Celio Zhou Work Phone: OZ-RLFCP-Cksrgxhh 2420 DO Work Phone: 06-13-2021 08:39-0400 Body mass index (BMI) [Ratio] 43.9 kg/m2 Celio Zhou Work Phone: TG-AUEFU-Madpcymc 2420 DO Work Phone: 06-13-2021 08:39-0400 Body surface area Derived from formula 2.07 m2 Celio Zhou Work Phone: MN-TZDSH-Xxtwxxba 2420 DO Work Phone: 06-13-2021 08:39-0400 Body weight 108.86 kg Celio Zhou Work Phone: RW-TCIJA-Sbrkwkec 2420 DO Work Phone: 06-13-2021 08:39-0400 Diastolic blood pressure 64 mm[Hg] Celio Zhou Work Phone: IO-CRKFL-Knvcwucn 2420 DO Work Phone: 06-13-2021 08:39-0400 Systolic blood pressure 118 mm[Hg] Celio Zhou Work Phone: WA-GKWER-Xthebozc 2420 DO Work Phone: 06-13-2021 08:39-0400 0 1 Celio Zhou Work Phone: FF-JWFHJ-Gozxsxcs 2420 DO Work Phone: Comment on above: [facility] 05-01-2021 13:23-0500 Body height 157.48 cm Celio [facility] Work Phone: 05-01-2021 13:23-0500 Body mass index (BMI) [Ratio] 43.01 kg/m2 Celio Zhou [facility] Phone[facility] Work Phone: 05-01-2021 13:23-0500 Body surface area Derived from formula 2.05 m2 Celio Zhou Work Phone: [facility] Work Phone: 05-01-2021 13:23-0500 Body temperature 97.5 [degF] Celio Zhou Work Phone: [facility] Work Phone: 05-01-2021 13:23-0500 Body weight 106.65 kg Celio Zhou Work Phone: [facility] Work Phone: 05-01-2021 13:23-0500 Diastolic blood pressure 80 mm[Hg] Celio Zhou [facility] Work [facility]: 05-01-2021 13:23-0500 Heart rate 88 /min Celio Zhou Work Phone: [facility] Work Phone: 05-01-2021 13:23-0500 Respiratory rate 14 /min Celio Zhou Work Phone: [facility] Work Phone: 05-01-2021 13:23-0500 SaO2% (BldA) [Mass fraction] 98 % Celio Zhou Work Phone: [facility] Work Phone: 05-01-2021 13:23-0500 Systolic blood pressure 122 mm[Hg] Celio Zhou Work Phone: [facility] Work Phone: 12-10-2020 09:50-0400 Body height 157.48 cm Celio Zhou Work Phone: [facility] Work Phone: 12-10-2020 09:50-0400 Body mass index (BMI) [Ratio] 40.57 kg/m2 Celio Zhou Work Phone: [facility] Work Phone: 12-10-2020 09:50-0400 Body surface area Derived from formula 2 m2 Celio Zhou Work Phone: [facility] Work Phone: 12-10-2020 09:50-0400 Body temperature 97.8 [degF] Celio Zhou Work Phone: [facility] Work Phone: 12-10-2020 09:50-0400 Body weight 100.61 kg Celio Ledesmas Work Phone: [facility] Work Phone: 12-10-2020 09:50-0400 Diastolic blood pressure 78 mm[Hg] Celio Ledesmas Work Phone: [facility] Work Phone: 12-10-2020 09:50-0400 Heart rate 69 /min Celio Ledesmas [facility] Phone[facility] Work Phone: 12-10-2020 09:50-0400 Respiratory rate 16 /min Celio Zhou Work Phone: [facility] Work Phone: 12-10-2020 09:50-0400 SaO2% (BldA) [Mass fraction] 99 % Celio Ledesmas Work Phone: [facility] Work Phone: 12-10-2020 09:50-0400 Systolic blood pressure 112 mm[Hg] Celio Zhou [facility] Phone: [facility] Work Phone: 10-08-2020 10:53-0400 Body height 157.48 cm Celio Ledesmas Work Phone: [facility] Work Phone: 10-08-2020 10:53-0400 Body mass index (BMI) [Ratio] 40.6 kg/m2 Celio Ledesmas Work Phone: [facility] Work Phone: 10-08-2020 10:53-0400 Body surface area Derived from formula 2 m2 Celio Ledesmas Work Phone: [facility] Work Phone: 10-08-2020 10:53-0400 Body temperature 97.2 [degF] Celio Ledesmas Work Phone: [facility] Work Phone: 10-08-2020 10:53-0400 Body weight 100.7 kg Celio Zhou Work Phone: [facility] Work Phone: 10-08-2020 10:53-0400 Diastolic blood pressure 84 mm[Hg] Celio Ledesmas [facility] Work Phone: 10-08-2020 10:53-0400 Heart rate 80 /min Celio Zhou Work Phone: [facility] Work Phone: 10-08-2020 10:53-0400 Respiratory rate 16 /min Celio Zhou [facility] Work Phone: 10-08-2020 10:53-0400 SaO2% (BldA) [Mass fraction] 98 % Celio Zhou [facility] Work Phone: 10-08-2020 10:53-0400 Systolic blood pressure 112 mm[Hg] Celio Ledesmas [facility] Phone: [facility] Work Phone: 08-06-2020 09:25-0400 Body height 157.48 cm Celio Ledesmas [facility] Work Phone: 08-06-2020 09:25-0400 Body mass index (BMI) [Ratio] 43.53 kg/m2 Celio Ledesmas Work Phone: [facility] Work Phone: 08-06-2020 09:25-0400 Body surface area Derived from formula 2.06 m2 Celio Zhou Work Phone: [facility] Work Phone: 08-06-2020 09:25-0400 Body temperature 97.2 [degF] Celio Zhou Work Phone: [facility] Work Phone: 08-06-2020 09:25-0400 Body weight 107.96 kg Celio Zhou [facility] Work Phone: 08-06-2020 09:25-0400 Diastolic blood pressure 80 mm[Hg] Celio Zhou [facility] Work Phone: 08-06-2020 09:25-0400 Heart rate 72 /min Celio Zhou Work Phone: [facility] Work Phone: 08-06-2020 09:25-0400 SaO2% (BldA) [Mass fraction] 100 % Celio Ledesmas [facility] Work Phone: 08-06-2020 09:25-0400 Systolic blood pressure 106 mm[Hg] Celio Ledesmas Work Phone: [facility] Work Phone: 07-10-2020 09:07-0400 Body height 157.48 cm Celio Ledesmas [facility] Phone: [facility] Work Phone: 07-10-2020 09:07-0400 Body mass index (BMI) [Ratio] 44.99 kg/m2 Celio Ledesmas Work Phone: [facility] Work Phone: 07-10-2020 09:07-0400 Body surface area Derived from formula 2.09 m2 Celio Zhou Work Phone: [facility] Work Phone: 07-10-2020 09:07-0400 Body temperature 97.2 [degF] Celio Ledesmas Work Phone: [facility] Work Phone: 07-10-2020 09:07-0400 Body weight 111.59 kg Celio Zhou Work Phone: [facility] Work Phone: 07-10-2020 09:07-0400 Diastolic blood pressure 86 mm[Hg] Celio Zhou Work Phone: [facility] Work Phone: 07-10-2020 09:07-0400 Heart rate 93 /min Celio Zhou Work Phone: [facility] Work Phone: 07-10-2020 09:07-0400 SaO2% (BldA) [Mass fraction] 98 % Celio Ledesmas Work Phone: [facility] Work Phone: 07-10-2020 09:07-0400 Systolic blood pressure 108 mm[Hg] Celio Ledesmas Work Phone: [facility] Work Phone: 04-03-2020 12:48-0500 BMI (Body Mass Index) 47.92 kg/m2 Gera Flanagan KG-FNBUD-Vxjpan 320 Work Phone: 04-03-2020 12:48-0500 Body weight 118.84 kg Gera Flanagan HE-ENZXU-Blducr 320 Work Phone: 04-03-2020 12:48-0500 BSA (Body Surface Area) 2.14 m2 Gera Flanagan ZX-YCNOS-Hahsxh 320 Work Phone: 04-03-2020 12:48-0500 Height 157.48 cm Gera Flanagan PY-FSWKU-Suyael 320 Work Phone: 04-03-2020 12:48-0500 0 1 Gera Flanagan BN-ABQKN-Sykzqj 320 Work Phone: Comment on above: Para Pain Scale 01-26-2020 17:04-0500 BMI (Body Mass Index) 47.98 kg/m2 Mishel Weinerman YY-YWYWS-Dyhvru 310 IVF Work Phone: 01-26-2020 17:04-0500 Body weight 118.98 kg Mishel Weinerman VO-TJDPV-Lbejun 310 IVF Work Phone: 01-26-2020 17:04-0500 BSA (Body Surface Area) 2.15 m2 Mishel Weinerman KX-TFCFD-Ndlldv 310 IVF Work Phone: 01-26-2020 17:04-0500 Height 157.48 cm Mishel Weinerman PP-HDFLG-Lrbeeu 310 IVF Work Phone: 01-26-2020 17:04-0500 0 1 Mishel Weinerman VA-MISTF-Hfyjnn 310 IVF Work Phone: Comment on above: Pain Scale Para 01-22-2020 11:58-0500 BP Diastolic 86 mm[Hg] Mishel Weinerman SO-BRKLT-Lltvgd 310 IVF Work Phone: 01-22-2020 11:58-0500 BP Systolic 132 mm[Hg] Mishel Weinerman CA-ZHIFA-Fukthz 310 IVF Work Phone: 01-22-2020 11:33-0500 BMI (Body Mass Index) 48.35 kg/m2 Mishel Cartagena MO-QVNAZ-Hfpzqm 310 IVF Work Phone: 01-22-2020 11:33-0500 Body Temperature 98.6 [degF] Mishel VELA-OBGYN-Risma n 310 IVF Work Phone: 01-22-2020 11:33-0500 Body weight 119.92 kg Mishel Cartagena PF-RCPSO-Ppnijh 310 IVF Work Phone: 01-22-2020 11:33-0500 BP Diastolic 100 mm[Hg] Mishel Foxerman FU-XYHIQ-Xjxvjb 310 IVF Work Phone: 01-22-2020 11:33-0500 BP Systolic 124 mm[Hg] Mishel Cartagena LU-JZWIV-Tfmwai 310 IVF Work Phone: 01-22-2020 11:33-0500 BSA (Body Surface Area) 2.15 m2 Mishel Cartagena IE-WCAHE-Aafquq 310 IVF Work Phone: 01-22-2020 11:33-0500 Height 157.48 cm Mishel Foxerman MB-YMZCM-Rpdzdw 310 IVF Work Phone: 01-22-2020 11:33-0500 Pulse (Heart Rate) 74 /min Mishel Cartagena WC-URWYQ-Swu man 310 IVF Work Phone: 01-22-2020 11:33-0500 Pulse Oximetry 99 % Mishel Cartagena YN-PAKNE-Zdaqcw 310 IVF Work Phone: [id number] 01:00-0400 >na< Mike Nicholson Dept. 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 Encounters Encounter Date Encounter Type Care Provider Facility Start: 12-28-2024 ambulatory Judie Bella Facility: [facility] Start: 12-21-2024 ambulatory Carmen Perdomo Facility :[facility] Start: 12-21-2024 End: 12-21-2024 ambulatory Carmen Perdomo Facility:[facility] Start: 12-14-2024 ambulatory Judie Bella Facility: [facility] Start: 12-13-2024 End: 12-13-[address] Judie Bella MD Work Phone: -[facility] Start: 12-13-2024 End: 12-13-[address] Tawana Timmons MD -[facility] Work Phone: Start: 12-13-2024 End: 12-13-[address] Tawana Timmons MD -[facility] Work Phone: Start: 12-13-2024 End: 12-13-[address] Judie Bella MD Work Phone: [facility] Start: 12-13-2024 End: 12-13-2024 ambulatory [facility] Facility:[facility] Start: 12-08-2024 End: 12-08-[address] Judie Bella MD Work Phone: [facility] Start: 12-08-2024 End: 12-08-[address] Anh Song DO -[facility] Work Phone: Start: 12-08-2024 End: 12-08-2024 ambulatory [facility] Facility:[facility] Start: 11-30-2024 End: 11-30-[address] Judie Bella MD Work Phone: [facility] Start: 11-30-2024 End: 11-30-2024 Patient encounter procedure Ade TINSLEY -[facility] Work Phone: Start: 11-30-2024 End: 11-30-2024 ambulatory Judie Bella Facility:[facility] Start: 11-23-2024 End: 11-23-[address] Tawana Timmons MD -[facility] Work Phone: Start: 11-23-2024 End: 11-23-[address] Judie Bella MD Work Phone: -[facility] Start: 11-20-2024 End: 11-20-[address] Judie Bella MD Work Phone: -Ultrasound [facility] Start: 11-20-2024 End: 11-20-2024 Patient encounter procedure Carmen SHAY -Ultrasound [facility] Work Phone: Start: 11-20-2024 End: [facility] Start: 11-10-2024 End: 11-10-[address] Tawana Timmons MD Work Phone: -Laboratory Start: 11-10-2024 End: 11-10-2024 Patient encounter procedure Carmen SHAYM -Laboratory Work Phone: Start: 11-10-2024 End: 11-10-2024 ambulatory Judie Kerlinero Facility:[facility] Start: 10-30-2024 End: 10-30-[address] Tawana Timmons MD Work Phone: -[facility] Start: 10-30-2024 End: 10-30-2024 Patient encounter procedure Carmen Perdomo CNM -[facility] Work Phone: Start: 10-30-2024 End: 10-30-2024 ambulatory [facility] Facility:[facility] Start: 10-02-2024 End: 10-02-2024 Patient encounter procedure Carmen Perdomo CNM -[facility] Work Phone: Start: 10-02-2024 End: 10-02-2024 ambulatory Carmen Perdomo CNM Work Phone: -[facility] Start: 09-12-2024 End: 09-12-2024 [facility] Start: 09-01-2024 End: 09-01-[address] Anh Song DO -[facility] Work Phone: Start: 09-01-2024 End: 09-01-2024 ambulatory Carmen Perdomo CNM Work Phone: -[facility] Start: 08-31-2024 End: 08-31-2024 ambulatory MD MAZARIEGOS [facility] Start: 08-02-2024 End: 08-02-[address] Anh Song DO -[facility] Work Phone: Start: 08-02-2024 End: 08-02-2024 ambulatory Carmen Perdomo CNM Work Phone: [facility] Work Phone: Start: 08-02-2024 End: 08-02-2024 ambulatory [facility] Facility:[facility] Start: 07-21-2024 End: 07-21-2024 Non-patient / Non-visit Dr. Arnulfo Gilmore MD -[facility] Work Phone: Start: 07-21-2024 End: 07-21-2024 ambulatory Carmen Perdomo CNM Work Phone: [facility] Work Phone: Start: 07-21-2024 End: 07-21-[address] Tawana Timmons MD -Pulmonary Services/Neurology Work Phone: Start: 07-21-2024 End: 07-21-2024 ambulatory [facility] Facility:[facility] Start: 07-06-2024 End: 07-06-[address] Tawana Timmons MD -[facility] Work Phone: Start: 07-06-2024 End: 07-06-2024 ambulatory Carmen Perdomo CNM Work Phone: [facility] Work Phone: Start: 07-06-2024 End: 07-06-2024 ambulatory Carmen Perdomo Facility:[facility] Start: 06-09-2024 End: 06-09-2024 ambulatory Carmen Perdomo CNSocorro Work Phone: [facility] Work Phone: Start: 06-09-2024 End: 06-09-2024 Patient encounter procedure Carmen Perdomo CNM -Laboratory, Specimen Work Phone: Start: 06-09-2024 End: 06-09-2024 Patient encounter procedure Carmen Perdomo CNM -[facility] Work Phone: Start: 06-09-2024 End: 06-09-2024 ambulatory Carmen Perdomo Facility:[facility] Start: 06-09-2024 End: 06-09-2024 ambulatory Carmen Perdomo Facility:[facility] Start: 05-26-2024 Non-patient / Non-visit Andressa walker RN -[facility] Work Phone: Start: 05-26-2024 ambulatory Andressa Schmitz Facility :[facility] Start: 05-03-2024 End: 05-03-2024 ambulatory Carmen Perdomo CNM Work Phone: [facility] Work Phone: Start: 05-03-2024 End: 05-03-2024 Patient encounter procedure Carmen Perdomo CNM -Laboratory, Specimen Work Phone: Start: 05-03-2024 Encounter for gynecological examination (general) (routine) without abnormal findings Carmen Perdomo [facility] Start: 05-03-2024 End: 05-03-2024 Patient encounter procedure Carmen Perdomo CNM -[facility] @ Start: 05-03-2024 End: 05-03-2024 Patient encounter status Carmen Perdomo CNM [facility] Start: 05-03-2024 End: 05-03-2024 ambulatory Carmen Perdomo Facility:[facility] Start: 05-03-2024 End: 05-03-2024 ambulatory Carmen Perdomo Facility:[facility] Start: 08-05-2023 End: 08-05-2023 Emergency department patient visit JOSEPH DEL CID DO [facility] Start: 07-22-2023 End: 07-22-2023 ambulatory [facility] Ambulatory Start: 07-15-2022 End: 07-16-2022 ambulatory [facility] Start: 07-15-2022 End: 07-16-2022 Encounter for general adult medical examination without abnormal findings [facility] Start: 02-27-2022 ambulatory Ms. Tom Naranjo ie PetrAgus Facility:[id number] Start: 02-27-2022 Phys/qhp telephone evaluation 11-20 min Celio Ledesmas Work Phone: [id number] 2420 DO Work Phone: Start: 02-24-2022 Patient encounter procedure Celio Zhou Work Phone: UU-Krmbtcijec-Hwasukn 1200 DO Work Phone: Start: 02-13-2022 Telephone encounter Celio flannery Work Phone: [id number] 1200 [place] Work Phone: Start: 02-04-2022 Patient encounter procedure Celio Zhou Work Phone: ON-JOAVU-Qyimbqff 2420 DO Work Phone: Start: 02-04-2022 ambulatory Ms. Tom Naranjo ie Petr-Banak Facility:[id number] Start: 01-19-2022 ambulatory CELIO ZHOU Facility :[facility] Start: 01-19-2022 Encounter for examination of blood pressure without abnormal findings Suki You [facility] Start: 01-19-2022 Chart Update Celio Ledesmas Work Phone: [id number] 1200 [place] Work Phone: Start: 01-15-2022 ambulatory CELIO LEDESMAS Facility :[id number] Start: 01-15-2022 Chart Update Celio Ledesmas Work Phone: BI-RSZHB-Nxaujku 2nd Fl Work Phone: Start: 01-11-2022 End: 01-11-2022 ambulatory [facility] Work Phone: Start: 01-11-2022 End: 01-11-2022 Patient encounter procedure [facility] Start: 01-07-2022 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 Tom Naranjo ie Debra Facility:[id number] Start: 12-24-2021 Office outpatient vi sit 15 minutes Celio Rosasolas Work Phone: BO-JIQNG-Zxunblty 2420 DO Work Phone: Start: 12-24-2021 ambulatory CELIO LEDESMAS Facility :[id number] Start: 12-23-2021 End: 12-23-2021 ambulatory Unavailable Patient Facility:[facility] Start: 12-22-2021 ambulatory Ms. Tom Naranjo ie Debra Facility:[facility] Romeo [place] Start: 12-17-2021 Office outpatient vi sit 15 minutes Celio Hankins Escolas Work Phone: [id number] 1200 [place] Work Phone: Start: 12-17-2021 ambulatory Ms. Tom Naranjo ie Debra Facility:[id number] Start: 12-15-2021 Chart Update Celio Nhi Escolas Work Phone: [id number] 1200 [place] Work Phone: Start: 12-15-2021 ambulatory Ms. Tom Naranjo ie Debra Facility:[facility] Romeo [place] Start: 12-12-2021 End: 12-12-2021 ambulatory Unavailable Patient Facility:[facility] Start: 12-12-2021 Office outpatient vi sit 15 minutes Celio Ledesmas Work Phone: [id number]-DZE 1200 [place] Work Phone: Start: 12-12-2021 ambulatory CELIO ZHOU Facility :9459 Start: 11-13-2021 Patient encounter procedure Celio Rosasolas Work Phone: XP-FPVMG-Wuhieyzq 2420 DO Work Phone: Start: 11-13-2021 ambulatory Dariela Urvashi ni [facility] Facility:9459 Start: 11-06-2021 ambulatory Ms. Tom Naranjo ie PetrPetros Facility:[facility] [place] Start: 11-06-2021 Rx Renewal Celio Hankins Escolas Work Phone: [facility] Work Phone: Start: 10-30-2021 Office outpatient vi sit 15 minutes Celio Ledesmas Work Phone: AR-[id number]-Dezsqrdt 2420 DO Work Phone: Start: 10-30-2021 ambulatory Suki You [place] lity:[id number] Start: 10-08-2021 Chart Update Celio Rosasolas Work Phone: [id number]-[id number]-Ikggjnam 2420 DO Work Phone: Start: 10-03-2021 ambulatory Ms. Tom Naranjo ie Debra Facility:9459 Start: 10-03-2021 Office outpatient vi sit 15 minutes Celio Ledesmas Work Phone: [id number] 1200 [place] Work Phone: Start: 09-11-2021 ambulatory Dariela Urvashi last [facility] Facility:9459 Start: 09-11-2021 Patient encounter procedure Celio Hankins Escolas Work Phone: TK-RWYBL-Mpvefaiz 2420 DO Work Phone: Start: 09-05-2021 Chart Update Celio Hankins Escolas Work Phone: [id number]-[id number]-Csfcgaxd 2420 DO Work Phone: Start: 08-29-2021 ambulatory Ms. Tom Naranjo ie PetrPetros Facility:[facility] Start: 08-07-2021 ambulatory Dariela Campuzano Facility:9459 Start: 08-07-2021 Office outpatient vi sit 15 minutes Celio Nhi Escolas Work Phone: EN-BXEVK-Favbbetg 2420 DO Work Phone: Start: 07-11-2021 ambulatory Ms. Tom Naranjo ie PetrPetros Facility:9459 Start: 07-11-2021 Office outpatient vi sit 15 minutes Celio Hankins Escolas Work Phone: FX-[id number]-Fhentvjh 2420 DO Work Phone: Start: 07-01-2021 Chart Update Celio Hankins Escolas Work Phone: [id number] 1200 [place] Work Phone: Start: 06-30-2021 ambulatory CELIO Hankins RALPHWALTERS Facility :[facility] [place] Start: 06-24-2021 Chart Update Celio Hankins Escolas Work Phone: [id number] 1200 [place] Work Phone: Start: 06-16-2021 AUDIT Celio Hankins Escolas Work Phone: DC-Kaulmhgy-Puwcnixo Yara Work Phone: Start: 06-13-2021 Office outpatient ne w 45 minutes Celio Hankins Escolas Work Phone: [id number]-Jvsudvvv 2420 DO Work Phone: Start: 06-13-2021 ambulatory Ms. Tom Naranjo ie Petr-Banak Facility:9459 Start: 06-13-2021 ambulatory Ms. Tom Naranjo ie Petr-Banak Facility:[facility] Start: 06-13-2021 ambulatory CELIO ROSASOLAS Facility :[facility] Start: 06-04-2021 ULTRASDFNT, Provider : JERROD NYE, Status: Pen, Time: 3:30 PM Celio Rosasolas Work Phone: zz DO NOT USE - [employer] Only Start: 06-04-2021 ambulatory CELIO Hankins ESCOLAS Facility :[facility] Romeo [place] Start: 06-03-2021 Image Encounter Celio Rosasolas Work Phone: zz DO NOT USE - [employer] Only Start: 06-03-2021 AUDIT Celio Rosasolas Work Phone: [id number] 1200 [place] Work Phone: Start: 05-01-2021 Office outpatient vi sit 25 minutes Celio Rosasolas Work Phone: [facility] Work Phone: Start: 05-01-2021 ambulatory CELIO LEDESMAS Facility :[id number] Start: 04-08-2021 ambulatory CELIO LEDESMAS Facility :[id number] Start: 04-07-2021 End: 04-08-2021 Office outpatient new 45 minutes 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 Start: 04-07-2021 End: 04-08-2021 Office outpatient visit 15 minutes 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 Start: 02-05-2021 Rx Renewal Celio Hankins Escolas Work Phone: [facility] Work Phone: Start: 01-29-2021 Rx Renewal Celio Hankins Escolas Work Phone: [facility] Work Phone: Start: 12-10-2020 Office outpatient vi sit 15 minutes Celio Hankins Escolas Work Phone: [facility] Work Phone: Start: 10-08-2020 Office outpatient vi sit 25 minutes Celio Zhou Work Phone: [facility] Work Phone: Start: 10-08-2020 Patient encounter procedure Celio Zhou Work Phone: [facility] Work Phone: Start: 10-03-2020 AUDIT Celio Zhou Work Phone: -Reproductive Endocrinology-[facility] e 206 Work Phone: Start: 08-08-2020 Chart Update Celio Zhou Work Phone: -Ambulatory Infusion Center-[facility] 1600 DO Work Phone: Start: 08-06-2020 Office outpatient vi sit 15 minutes [facility] Zhou [facility]: Start: 04-03-2020 Patient encounter procedure Gera Panchito BS-ALSUX-Harrne 320 Work Phone: Start: 03-14-2020 Patient encounter procedure Gera Flanagan CA-ZKYZS-Xgxohn 320 Work Phone: Start: 03-13-2020 Patient encounter procedure Gera Panchito YS-RVMKO-Erksth 310 IVF Work Phone: Start: 03-06-2020 Patient encounter procedure Gera Flanagan LE-UQSUG-Lihpaa 310 IVF Work Phone: Start: 02-15-2020 Patient encounter procedure Gera Flanagan SK-YAKWR-Nkjjyo 310 IVF Work Phone: Start: 02-12-2020 Patient encounter procedure Gera Flanagan FH-JLOIW-Bufvfa 310 IVF Work Phone: Start: 01-26-2020 Patient encounter procedure Mishel Cartagena WR-JSAUX-Butors 310 IVF Work Phone: Start: 01-22-2020 Patient encounter procedure Mishel Cartagena FA-RIUJD-Gplhkf 310 IVF Work Phone: Start: 01-16-2020 Patient encounter procedure Mishel Cartagena WU-JJWUP-Egeldw 310 IVF Work Phone: Start: 12-15-2019 Patient encounter procedure Gera Flanagan WP-UJZGA-Jrrkpv 310 IVF Work Phone: Start: 09-18-2019 Patient encounter procedure Mishel Cartagena DG-AQHNM-Fmtjge 310 IVF Work Phone: Start: 04-07-2019 Patient encounter procedure Celio Zhou -[facility] Work Phone: Start: 01-27-2019 Patient encounter procedure Celio Zhou -[facility] Work Phone: Start: 12-27-2018 Patient encounter procedure Celio Zhou -[facility] Work Phone: End: 01-28-2019 Patient encounter procedure Celio Zhou Work Phone: [facility] Work Phone: Procedures Date Procedure Procedure Detail [...] 07-06-2024 Hepatitis C antibody measurement Carmen Perdomo [facility] Work Phone: Comment on above: Reactive: Presumptiv e evidence of antibodies to HCV. Follow CDC recommendations for supplemental testing.Non-Reactive: Antibodies to HCV were not detected; does not exclude the possibility of exposure to HCVReactive Results are presumptive evidence of antibodies to HCV. Follow CDC recommendations for supplemental testing.Order confirmation testing: HCV Quant by PCR testing - HCVPCR #[id number] Non Reactive: < 0.8 Equivocal: >/= 0.8 to < 1.0 Reactive: >/= 1.0The [facility] requires that a reactive/equivocal HCV antibody result be sent out for confirmation. HCV Quant by PCR testing. Start: 07-06-2024 Procedure Carmen blount [facility] Work Phone: Start: 07-06-2024 Rubella IgG measurement Carmen Perdomo [facility] Work Phone: Comment on above: Antibody Result: Int erpretationNon-Reactive: Non- ImmuneReactive: ImmuneThe following results were obtained with the [employer] Rubella IgG assay. Results from assays of other manufacturers cannot be used interchangeably. Start: 07-06-2024 Serologic test for syphilis Carmen Perdomo [facility] Work Phone: Start: 06-09-2024 Urine culture Carmen lowery [facility] Work Phone: Start: 05-03-2024 Liquid based cervica l cytology screening Carmen Perdomo [facility] Work Phone: Comment on above: NEGATIVE [...] Psychiatric diagnost ic eval w/medical services Celio hZou Work Phone: Start: 01-04-2022 Antibody screen Marielle Campuzano Comment on above: Performed By: #### T +S #### [facility] [id number] [place] [id number] Start: 06-13-2021 Antibody screen Marielle Campuzano Comment on above: Performed By: #### T +S #### [facility] [id number] [place] [id number] Start: 03-29-2020 Assay of estradiol Andrew dallas Panchito Start: 03-29-2020 Gonadotropin luteini zing hormone Gera Panchito Start: 03-04-2020 IO Ultrasound, limit ed pelvic, follicle monitoring Gera Flanagan Start: 02-02-2020 Assay of estradiol Courtney Cartagena Start: 02-02-2020 Gonadotropin luteini zing hormone Mishel Zhou Colposcopy Mishel [place] Plan of Treatment Date Care Activity Detail Author Start: 12-13-2024 Obstetric monitoring [facility] Start: 12-13-2024 Vital signs measurements [facility] Start: 12-13-2024 [facility] Start: 12-13-2024 Patient discharge [facility] Start: 12-08-2024 Biophysical pr ofile panel US [facility] Start: 12-08-2024 Ultrasonography for biophysical profile without non-stress testing OB Biophysical Prof W/O NST [facility] Start: 11-23-2024 [facility] Start: 10-30-2024 CBC W Auto Different ial panel - Blood [facility] Start: 10-30-2024 Measurement of gluco se 2 hours after glucose challenge for glucose tolerance test [facility] Start: 10-30-2024 Serologic test for syphilis [facility] Start: 10-30-2024 [facility] Start: 06-09-2024 Chlamydia deoxyribon ucleic acid detection [facility] Start: 03-24-2022 GABO, Provider : Michelle Ervin, Status: Pen, Time: 10:00 AM GABO, Provider: Michelle Ervin, Status: Pen, Time: 10:00 AM PO-ITWGQ-Gvrpwttm 2420 DO Work Phone: Start: 02-24-2022 VIRNPVHOME, Provider : Michelle Ervin, Status: Pen, Time: 12:30 PM VIRNPVHOME, Provider: Michelle Ervin, Status: Pen, Time: 12:30 PM LJ-ZHEWH-FNI 1200 [place] Work Phone: Start: 02-04-2022 Patient encounter procedure AERIAL GUNNER Nurse Mid Start: 02-04-2022 PPV, Provider: Tom Bull, Status: Pen, Time: 2:30 PM PPV, Provider: Sophia Bull, Status: Pen, Time: 2:30 PM BM-SWEAG-Ygfqmz 100 [facility] Work Phone: Start: 01-19-2022 PPV, Provider: Suki You, Status: Pen, Time: 1:30 PM PPV, Provider: Suki You, Status: Pen, Time: 1:30 PM ZW-DSMDP-Twhlmdf 2nd Fl Work Phone: Start: 01-15-2022 Patient encounter procedure AERIAL GUNNER [place] Start: 01-15-2022 PPV, Provider: Suki You, Status: Pen, Time: 2:30 PM PPV, Provider: Suki You, Status: Pen, Time: 2:30 PM QC-NZMQR-Pmrwzn 100 [facility] Work Phone: Start: 01-11-2022 Patient discharge [facility] Work Phone: Start: 01-09-2022 EPVOB, Provider: Dariela Campuzano, Status: Pen, Time: 4:15 PM EPVOB, Provider: Dariela Campuzano , Status: Pen, Time: 4:15 PM CP-IHUTH-Lsdlmcqq 2420 DO Work Phone: Start: 01-09-2022 RNVISIT, Provider: Kelsey CARDONAMGOBRILEY, Status: Pen, Time: 3:45 PM RNVISIT, Provider: JERROD LOZANO, Status: Pen, Time: 3:45 PM EQ-DRXRL-Wxmjreiw 2420 DO Work Phone: Start: 01-05-2022 End: 01-05-2022 Placental Record [Baby A] Placental Record [Baby A] Date: 05-Jan-2022 [facility] Start: 01-05-2022 End: 01-06-2023 [facility] Comment on above: Consult provider jose or [...] Consult Provider prior to administration. Start: 01-04-2022 [facility], Provider: Jagjit Boles, Status: Pen, Time: 8:00 AM [facility], Provider: Jagjit Boles, Status: Pen, Time: 8:00 AM DI-MJZGC-Gutffpqr 2420 DO Work Phone: Start: 01-02-2022 EPVOB, Provider: Tom Bull, Status: Pen, Time: 4:15 PM EPVOB, Provider: Sophia Bull, Status: Pen, Time: 4:15 PM TX-DQEZW-Vajfornl 2420 DO Work Phone: Start: 01-02-2022 RNVISIT, Provider: O B NURSES ROMEOMGOBGYN, Status: Pen, Time: 3:45 PM RNVISIT, Provider: OB NURSES ROMEOMGOBОЛЬГАN, Status: Pen, Time: 3:45 PM SE-QUOIF-Yyxwvimx 2420 DO Work Phone: Start: 12-31-2021 EPVOB, Provider: Tom Bull, Status: Pen, Time: 2:45 PM EPVOB, Provider: Sophia Bull, Status: Pen, Time: 2:45 PM SR-NREZL-Vctmkugm 2420 DO Work Phone: Start: 12-31-2021 RNVISIT, Provider: O B NURSES MG ROMEOOBОЛЬГАN, Status: Pen, Time: 2:15 PM RNVISIT, Provider: OB NURSES JERROD CARDONA, Status: Pen, Time: 2:15 PM QZ-YQFKD-Tcvnakey 2420 DO Work Phone: Start: 12-24-2021 EPVOB, Provider: Tom Bull, Status: Pen, Time: 3:30 PM EPVOB, Provider: Sophia Bull, Status: Pen, Time: 3:30 PM GT-DIWVR-Isakykqg 2420 DO Work Phone: Start: 12-24-2021 RNVISIT, Provider: O B NURSES ROMEOMGOBGYN, Status: Pen, Time: 3:00 PM RNVISIT, Provider: OB NURSES ROMEOMGOBGYN, Status: Pen, Time: 3:00 PM JV-GAWEB-Rhsswivh 2420 DO Work Phone: Start: 12-18-2021 EPVOB, Provider: Dariela Campuzano, Status: Pen, Time: 2:45 PM EPVOB, Provider: Dariela Campuzano , Status: Pen, Time: 2:45 PM BJ-RPNCN-Johskyjs 2420 DO Work Phone: Start: 12-18-2021 RNVISIT, Provider: O B NURSES ROMEO,MGOBGYN, Status: Pen, Time: 2:15 PM RNVISIT, Provider: OB NURSES ROMEOMGOBGYN, Status: Pen, Time: 2:15 PM AW-BWKMC-Ytjouvoh 2420 DO Work Phone: Start: 12-15-2021 ULTRASDFUV, Provider : OB PARK3,MGOBGYN, Status: Pen, Time: 3:30 PM ULTRASDFUV, Provider: OB PARK3MGOBGYN, Status: Pen, Time: 3:30 PM OJ-CPOTF-Husjhbyl 2420 DO Work Phone: Start: 12-12-2021 EPVOB, Provider: Dariela Campuzano, Status: Pen, Time: 4:15 PM EPVOB, Provider: Dariela Campuzano , Status: Pen, Time: 4:15 PM VU-LMWZK-Hvicjboi 2420 DO Work Phone: Start: 12-12-2021 EPVOB, Provider: Tom Bull, Status: Pen, Time: 4:00 PM EPVOB, Provider: Sophia Bull, Status: Pen, Time: 4:00 PM WC-FOVQS-ZUD 1200 [place] Work Phone: Start: 12-12-2021 RNVISIT, Provider: O B NURSES ROMEO,MGOBGYN, Status: Pen, Time: 3:30 PM RNVISIT, Provider: OB NURSES ROMEOMGOBGYN, Status: Pen, Time: 3:30 PM QI-QYRJB-Ggcxqzaz 2420 DO Work Phone: Start: 11-28-2021 EPVOB, Provider: Tom Bull, Status: Pen, Time: 4:00 PM EPVOB, Provider: Sophia Bull, Status: Pen, Time: 4:00 PM MG-AKYYC-Hlxmrrjy 2420 DO Work Phone: Start: 11-13-2021 EPVOB, Provider: Dariela Campuzano, Status: Pen, Time: 2:30 PM EPVOB, Provider: Dariela Campuzano , Status: Pen, Time: 2:30 PM SF-VLTWI-Jtohwsbt 2420 DO Work Phone: Start: 11-06-2021 ULTRASDFUV, Provider : LELAND HARPER 1,MGOBGYN, Status: Pen, Time: 3:30 PM ULTRASDFUV, Provider: LELAND HARPER 1,MGOBGYN, Status: Pen, Time: 3:30 PM BA-FSIGY-Ikclfdxx 2420 DO Work Phone: Start: 10-31-2021 EPVOB, Provider: Tom Bull, Status: Pen, Time: 4:15 PM EPVOB, Provider: Sophia Bull, Status: Pen, Time: 4:15 PM XC-QJHAT-Hbbzaqqk 2420 DO Work Phone: Start: 10-31-2021 ULTRASDFUV, Provider : LELAND HARPER 1MGOBGYN, Status: Pen, Time: 1:15 PM ULTRASDFUV, Provider: LELAND HARPER 1,MGOBGYN, Status: Pen, Time: 1:15 PM HN-FSHMS-Bzjifrlh 2420 DO Work Phone: Start: 10-30-2021 ULTRASDFUV, Provider : LELAND HARPER 2,MGOBGYN, Status: Pen, Time: 3:00 PM ULTRASDFUV, Provider: LELAND HARPER 2,MGOBGYN, Status: Pen, Time: 3:00 PM HN-JLSQZ-EYH 1200 [place] Work Phone: Start: 10-30-2021 EPVOB, Provider: Suki You, Status: Pen, Time: 11:45 AM EPVOB, Provider: Suki You, Status: Pen, Time: 11:45 AM JD-LKLXR-LKM 1200 [place] Work Phone: Start: 10-03-2021 EPVOB, Provider: Tom Bull, Status: Pen, Time: 4:15 PM EPVOB, Provider: Sophia Bull, Status: Pen, Time: 4:15 PM UN-CPBOU-Hptbohbl 2420 DO Work Phone: Start: 09-11-2021 EPVOB, Provider: Dariela Campuzano, Status: Pen, Time: 10:45 AM EPVOB, Provider: Dariela Campuzano , Status: Pen, Time: 10:45 AM ZA-SVLRQ-Nsavuxmo 2420 DO Work Phone: Start: 09-05-2021 EPVOB, Provider: Tom Bull, Status: Pen, Time: 4:15 PM EPVOB, Provider: Sophia Bull, Status: Pen, Time: 4:15 PM YY-FYOYZ-Mfwtdlsb 2420 DO Work Phone: Start: 08-29-2021 ULTRASDANT, Provider : LELAND HARPER 1MGOBGYN, Status: Pen, Time: 2:00 PM ULTRASDANT, Provider: LELAND HARPER 1MGOBGYN, Status: Pen, Time: 2:00 PM SK-GTHSR-Zyejcidx 2420 DO Work Phone: Start: 08-07-2021 EPVOB, Provider: Dariela Campuzano, Status: Pen, Time: 11:00 AM EPVOB, Provider: Dariela Campuzano , Status: Pen, Time: 11:00 AM TO-GJRHL-Zhbghtaa 2420 DO Work Phone: Start: 07-11-2021 EPVOB, Provider: Tom Bull, Status: Pen, Time: 4:00 PM EPVOB, Provider: Sophia Bull, Status: Pen, Time: 4:00 PM CI-TWYWS-Nfkopcnz 2420 DO Work Phone: Start: 06-30-2021 ULTRASDFNT, Provider : LELAND HARPER 2,MGOBОЛЬГАN, Status: Pen, Time: 3:45 PM ULTRASDFNT, Provider: LELAND HARPER 2,MGOBGYN, Status: Pen, Time: 3:45 PM PW-ECJVO-EQC 1200 [place] Work Phone: Start: 06-13-2021 NPVOBINTL, Provider: Tom Bull, Status: Pen, Time: 11:30 AM NPVOBINTL, Provider: Sophia Bull, Status: Pen, Time: 11:30 AM zz DO NOT USE - [facility] Only Start: 05-23-2021 NPVOBINTL, Provider: Dariela Campuzano, Status: Pen, Time: 3:30 PM NPVOBINTL, Provider: Dariela Campuzano , Status: Pen, Time: 3:30 PM [facility] Work Phone: CBC W Auto Different ial panel - Blood [facility] CBC W Auto Different ial panel - Blood [facility] Comprehensive metabo lic 2000 panel - Serum or Plasma [facility] Electrocardiographic procedure [facility] Erythrocyte mean cor puscular volume determination [facility] Biophysical pr ofile panel US [facility] Hematocrit [Volume F raction] of Blood [facility] Hemoglobin [Mass/vol ume] in Blood [facility] Hemoglobin A1c/Hemoglobin.total in Blood [facility] Hepatitis C antibody measurement [facility] Leukocytes [#/volume ] in Blood [facility] Mean corpuscular hem oglobin concentration determination [facility] Mean corpuscular hem oglobin determination [facility] Measurement of gluco se 2 hours after glucose challenge for glucose tolerance test [facility] Neisseria gonorrhoea e rRNA [Presence] in Unspecified specimen by MCKENZIE with probe detection [facility] Neutrophil count [facility] Neutrophil percent differential count [facility] Patient Education Kick Counts ED False Labor OB Triage: Return to Hospital or Notify Physician if you Experience: [facility] Work Phone: Patient referral [facility] Work Phone: PCR test for Chlamyd ia trachomatis [facility] Platelets [#/volume] in Blood [facility] Protein/Creatinine [ Ratio] in Urine [facility] Red blood cell count [facility] Red cell distributio n width determination [facility] Rubella IgG measurement [facility] Serologic test for syphilis [facility] Serologic test for syphilis [facility] Ultrasound scan for growth [facility] Ultrasound scan for growth [facility] XP-LQEFC-Epdaul 310 IVF Work Phone: [facility] NEGATED: Highlighted row has been ruled out! Planned Goals not documented [id number]-Rzapkg 310 IVF Work Phone: Immunizations Immunization Date Immunization Notes Care Provider Fa cility 11-23-2024 tetanus toxoid, redu sussy diphtheria toxoid, and acellular pertussis vaccine, adsorbed Dr. Judie Bella MD Work Phone: [facility] 02-06-2022 Pfizer COVID-19 Vac Bivalent 30 MCG/0.3ML Intramuscular Suspension Celio Zhou Work Phone: OS-Vnjngpatbi-Tmexbe l 1200 DO Work Phone: 01-07-2022 measles, mumps and rubella virus vaccine Celio Zhou Work Phone: LJ-WXNRU-Vfhllah 2nd Fl Work Phone: 11-13-2021 tetanus toxoid, redu sussy diphtheria toxoid, and acellular pertussis vaccine, adsorbed; Translations: [Tdap (Boostrix)] Celio Zhou Work Phone: NZ-EHFVC-Lmoyqxzf 2420 DO Work Phone: Comment on above: Series: 01-24-2021 Pfizer-BioNTech COVID-19 Vacc 30 MCG/0.3ML Intramuscular Suspension Celio Zhou Work Phone: [facility] Work Phone: 04-04-2020 Moderna COVID-19 Vaccine 100 MCG/0.5ML Intramuscular Suspension Celio Zhou Work Phone: [facility] Work Phone: 03-06-2020 Moderna COVID-19 Vaccine 100 MCG/0.5ML Intramuscular Suspension Celio Zhou Work Phone: [facility] Work Phone: 12-10-2016 influenza, seasonal, injectable Celio Zhou Work Phone: [facility] Work Phone: 04-03-2002 hepatitis B vaccine, pediatric or pediatric/adolescent dosage Celio Zhou Work Phone: [facility] Work Phone: 10-31-2001 hepatitis B vaccine, pediatric or pediatric/adolescent dosage Celio Zhou Work Phone: [facility] Work Phone: 09-28-2001 hepatitis B vaccine, pediatric or pediatric/adolescent dosage Celio Zhou Work Phone: [facility] Work Phone: 06-29-1990 diphtheria, tetanus toxoids and acellular pertussis vaccine, unspecified formulation Celio Zhou Work Phone: [facility] Work Phone: 06-29-1990 trivalent poliovirus vaccine, live, oral Celio Zhou Work Phone: [facility] Work Phone: 03-30-1990 haemophilus influenz ae type b vaccine, conjugate unspecified formulation Celio Zhou Work Phone: [facility] Work Phone: 03-30-1990 measles, mumps and rubella virus vaccine Celio Ledes[employer] Work Phone: [facility] Work Phone: 07-07-1989 diphtheria, tetanus toxoids and pertussis vaccine Celio Rosasolas Work Phone: [facility] Work Phone: 05-12-1989 diphtheria, tetanus toxoids and pertussis vaccine Celio Rosasolas Work Phone: [facility] Work Phone: 05-12-1989 trivalent poliovirus vaccine, live, oral Celio Ledesmas Work Phone: [facility] Work Phone: 03-10-1989 diphtheria, tetanus toxoids and pertussis vaccine Celio Rosasolas Work Phone: [facility] Work Phone: 03-10-1989 trivalent poliovirus vaccine, live, oral Celio Ledesmas Work Phone: [facility] Work Phone: 1990 pneumococcal conjuga te vaccine, 7 valent [facility] Dept[facility] 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 influenza virus vaccine, unspecified formulation Mishel Cartagena ND-INGOF-Gvkovh 310 IVF Work Phone: Comment on above: Approx [id number] Approx [id number] Ser ies: Payers Date Payer Category Payer Self-pay 2023 Unknown [id number] 2022 Unknown [id number] 2021 Unknown [id number] 1990 Unknown [id number] 2. 840.1.356644.3.579.2.356 1988 Unknown [id number] 04.23. 840.1.518760.3.579.2.356 1988 Unknown [id number] 04.23. 840.1.992498.3.579.2.356 1988 Unknown [id number] 840.1.522081.3.579.2.356 1988 Unknown [id number] . 840.1.214923.3.579.2.356 1988 Unknown [id number] 840.1.264632.3.579.2.356 1988 Unknown [id number] . 840.1.173515.3.579.2.356 1988 Unknown [id number] .1.466396.3.579.2.356 1988 Unknown [id number] .1.339125.3.579.2.356 1988 Unknown [id number] .1.609182.3.579.2.356 1988 Unknown [id number] .1.027798.3.579.2.356 1988 Unknown [id number] .1.024682.3.579.2.356 1988 Unknown [id number] .1.460602.3.579.2.356 1988 Unknown [id number] .1.745096.3.579.2.356 1988 Unknown [id number] 840.1.802730.3.579.2.356 1988 Unknown [id number] 0.1.692923.3.579.2.356 1988 Unknown [id number] 840.1.785360.3.579.2.356 1988 Unknown [id number] 840.1.675681.3.579.2.356 1988 Unknown [id number] 2.16. 840.1.439709.3.579.2.356 1988 Unknown [id number] 2.16. 840.1.478134.3.579.2.356 1988 Unknown [id number] 2.16. 840.1.673049.3.579.2.356 1988 Unknown [id number] 2.16. 840.1.090790.3.579.2.356 1988 Unknown [id number] 2.16. 840.1.971811.3.579.2.356 1988 Unknown [id number] 2.16. 840.1.243189.3.579.2.356 1988 Unknown [id number] 2.16. 840.1.737305.3.579.2.356 1988 Unknown [id number] 2.16 840.1.066001.3.579.2.356 1988 Unknown [id number] 2.16 840.1.861885.3.579.2.356 1988 Unknown [id number] 2.16 840.1.066985.3.579.2.356 1988 Unknown [id number] 2.16.840 .1.964865.3.579.2.1245 1988 Unknown [id number] 2.16.8 40.1.392000.3.579.2.627 1988 Unknown [id number] 2.16.8 40.1.951519.3.579.2.1244 1988 Unknown [id number] 2.16. 840.1.419820.3.579.2.479 1988 Unknown [id number] 2.16. 840.1.292002.3.579.2.479 Unknown Unknown [id number] Unknown [id number] 2.16.8 40.1.965567.3.579.2.462 Unknown [id number] 2.16.8 40.1.593981.3.579.2.462 Unknown [id number] 2.16.8 40.1.090446.3.579.2.462 Unknown [id number] 2.16.8 40.1.066300.3.579.2.462 Unknown [id number] 2.16.8 40.1.927502.3.579.2.462 Unknown [id number] 2.16.8 40.1.066561.3.579.2.462 Unknown [id number] 2.16.8 40.1.156806.3.579.2.462 Unknown [id number] 2.16.8 40.1.726190.3.579.2.462 Unknown [id number] 2.16.8 40.1.926349.3.579.2.462 Unknown [id number] 2.16.8 40.1.293851.3.579.2.462 Unknown [id number] 2.16.8 40.1.364282.3.579.2.462 Unknown [id number] 2.16.8 40.1.303510.3.579.2.462 Unknown [id number] 2.16.8 40.1.832661.3.579.2.462 Unknown [id number] 2.16.8 40.1.079061.3.579.2.462 Unknown [id number] 2.16.8 40.1.975004.3.579.2.462 Unknown [id number] 2.16.8 40.1.929629.3.579.2.462 Unknown [id number] 2.16.8 40.1.252308.3.579.2.462 Unknown [id number] 2.16.8 40.1.430169.3.579.2.462 Unknown [id number] 2.16.8 40.1.227628.3.579.2.462 Unknown [id number] 2.16.8 40.1.641177.3.579.2.462 Unknown [id number] 2.16.8 40.1.669274.3.579.2.462 Unknown [id number] 2.16.8 40.1.234363.3.579.2.462 Unknown [id number] 2.16.8 40.1.632863.3.579.2.462 Unknown [id number] 2.16.8 40.1.524576.3.579.2.462 Unknown [id number] 2.16.8 40.1.520900.3.579.2.462 Unknown [id number] 2.16.8 40.1.253691.3.579.2.462 Unknown [id number] 2.16.8 40.1.118127.3.579.2.462 Unknown [id number] 2.16.8 40.1.119937.3.579.2.462 Unknown [id number] 2.16.8 40.1.353294.3.579.2.462 Unknown [id number] 2.16.8 40.1.104837.3.579.2.462 Unknown [id number] 2.16.8 40.1.460132.3.579.2.462 Social History Date Type Detail Facility Never smoker Never smoker [facility] Work Phone: 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 Start: 1990 Sex Assigned At Female A [facility] Tobacco smoking status No Smoking Status Entered [facility] Start: 05-03-2024 End: 05-26-2024 Tobacco smoking status NHIS Never smoked tobacco (finding) [facility] Start: 05-18-2024 End: 06-13-2024 Sex Female (finding) [facility] Sex Female [facility] NEGATED: Highlighted row - - [facility] Work Phone: Goals Date Patient Goal Desired Activity /State Functional Status Date Assessment Result Facility 08-05-2023 Functional Status Assistive Device None A [facility] 08-05-2023 Functional Status Environmental Safety Implemented Adequate room lighting, Bed in low position, Call device within reach [facility] 08-05-2023 Functional Status Standard Safet y ID band on, Call device within reach, Bed in low position, Wheels locked [facility] Functional observable [facility] NEGATED: Highlighted row Functional performance Functional status health issues are not documented Disease [facility] Work Phone: Mental Status Date Assessment Result Facility 08-05-2023 Mental Status Orientation Orie nted x 4 [facility] 08-05-2023 [facility] [place] 01-05-2022 Cognitive functi ons [id number] [facility] NEGATED: Highlighted row Cognitive function [Interpretation] Cognitive status health issues are not documented Disease [facility] Work Phone: Clinical Notes 04-30-2021 to 12-13-2024 Note Date & Type Note Facility 12-13-2024 Progress note [facility] 12-08-2024 Progress note [facility] 12-04-2024 Radiology Diagnostic study note [facility] Imaging Services [address] [place], [place] [id number] OB Biophysical Prof W/O NST MR#: [id number] Acct: [id number] Name: SHU GASPAR Rep #: [id number] : 1990 F 33 From: Derrick Mckinney MD PCP: Dr. Judie Bella MD Status: REG CLI Study:OB Biophysical Prof W/O NST Date of Exa m: 11/30/24 Exam# [id number] Ordering Dr: Carmen Perdomo CNM PROCEDURE: OB [...] AMIE Perdomo; Dr. Judie Bella MD ~ Excavating Supervisor: Signed [facility] 11-30-2024 Progress note [facility] 11-23-2024 Progress note [facility] 11-21-2024 Radiology Diagnostic study note [facility] Imaging Services [address] [place] [address] OB Limited With Biometrics MR#: [id number] Acct: [id number] Name: SHU GASPAR Rep #: [id number] : 1990 F 33 From: Iron Reaves MD PCP: Dr. Judie Bella MD Status: REG CLI Study:OB Limited With Biometrics Date of Exam : 11/20/24 Exam# [id number] Ordering Dr: Carmen Perdomo CNM PROCEDURE: OB [...] of 33 weeks and 2days. Reading Location: [place] [address] CC: AMIE Perdomo; Dr. Judie Bella MD ~ Excavating Supervisor: Signed [facility] 11-21-2024 Radiology Diagnostic study note [facility] Imaging Services [address] [place] [address] OB Biophysical Prof W/O NST MR#: [id number] Acct: [id number] Name: SHU GASPAR Rep #: [id number] : 1990 F 33 From: Iron Reaves MD PCP: Dr. Judie Bella MD Status: [facility] CLI Study:OB Biophysical Prof W/O NST Date of Exa m: 11/20/24 Exam# [id number] Ordering Dr: Carmen Perdomo CNM PROCEDURE: OB [...] biophysical profile score of 8/8. Reading Location: [place] [address] CC: AMIE Perdomo; Dr. Judie Bella MD ~ Excavating Supervisor: Signed [facility] 10-30-2024 Progress note [facility] 10-30-2024 Progress note Note Date/Time October 30, 2024 2:14pm [facility] [address] [place] [address], [address] [place] [address] OFFICE VISIT Date of Service: 10/30/24 MR#: [id number] Acct: [id number] Name: SHU GASPAR Rep #: [id number] : 1990 Provider: AMIE Perdomo Age/Sex: 33/F Location: [facility] Status: Signed Intake Vital Signs 09/01/24 14:59 10/02/24 09:42 10/30/24 13:49 Height 5 ft 2 in 5 ft 2 in 5 ft 2 in Weight: 265 lb 6 oz 268 lb 5 oz BMI 48.5 49.1 BP 124/83 H 120/83 H Intake Visit Reasons: 28wk ob/glucose 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 Required: No Is patient in pain?: No Allergies No Known Allergies Allergy (Verified 10/30/24 13:50) Medications ?Medication ?Instructions ?Recorded ?Confirmed ?Type tjlddtrk-syh-Xz-FA 1 mg tab PO 01/11/2210/30 History tablet [...] No household members: spouse and children [facility] number of children: 1 current occupational status: [...] physical activity do you participate in: none baylee/samaritan: None seatbelt use: always do you feel [...] 123/85 -?-?-?-?-?-?-?-?-?-?-?-?- 168 -?-?-?-?-?-?-?-?-?-?-?-?- SM- no vb crmdebbyi elaina will get new ob labs today [...] between 32-34 weeks, deliver at 37-38 weeks.prefers recovery collector delivery if possible! JV- planning to stop metform in and do glucola at 26-28 weeks. continue baby asa and metoprolol. plan weekly testing @ 32 weeks, deliver at 37-38 weeks.prefers recovery collector delivery if possible! 09/01/24 -?-?-?-?-?-?-?-?-?-?-?-?- 20w 5d [...] Acute Comment: PRR, , SLIME 01/14/25, PC: Chad PC: Parth (5) : Status: Acute Qualifiers: [...] Cosigner Signature: Date (if applicable) CC: ~ [facility] Work Phone: 1(402) 752-782807-28-2025 Progress [facility] [address], [place] [address] OFFICE VISIT Date of Service: 10/02/24 MR#: [id number] Acct: [id number] Name: SHU GASPAR Rep #: [id number] : 1990 Provider: AMIE Perdomo Age/Sex: 33/F [place] [facility] Status: Signed Intake Vital Signs 07/06/24 15:06 09/01/24 14:59 10/02/24 09:42 Height 5 ft 2 in 5 ft 2 in 5 ft 2 in Weight: 265 lb 6 oz BMI 48.5 BP 124/83 H Intake Visit Reasons: 24 wk ob Chief Complaint: 24wk OB 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 Supervisor Required: No Is patient in pain?: No Allergies No Known Allergies Allergy (Verified 10/02/24 09:40) Medications 3 ?Medication ?Instructions ?Recorded ?Confirmed ?Type jczrmydu-any-Nv-FA 1 mg tab PO 01/11/2210/02 History tablet [...] physical activity do you participate in: none baylee/samaritan: None seatbelt use: always do you feel safe at home: Yes additional social history: : Parth Gilles Lori Betsey History 2 Elective abortions Hx Para 1 Spontaneous abortions Hx # Term Pregnancies 1 Ectopic pregnancies Hx # Pregnancies Multiple births # of living children 1 Past Pregnancies Del. Date Name GA/Weeks Outcome Route Bth Weight Gen Labor Lgth Anesthesia Del Locatn Provider FOB 01/05/22 Christian 39 live - full term 7lbs 8oz [...] between 32-34 weeks, deliver at 37-38 weeks.prefers recovery collector delivery if possible! JV- planning to stop metform in and do glucola at 26-28 weeks. continue baby asa and metoprolol. plan weekly testing @ 32 weeks, deliver at 37-38 weeks.prefers recovery collector delivery if possible! 09/01/24 -?-?-?-?-?-?-?-?-?-?-?-?- 20w 5d [...] Arreguin Signature: Date (if applicable) CC: ~ [facility]06-27-2025 Evaluation note* Diagnosis Onset Date Resolution [...] 2024 9:39am Hypertension chronic November 302024 9:39am [facility] Work Phone: 1([phone]) 778-366506-27-2025 Evaluation note* Diagnosis Onset Date Resolution Status [...] 8:47am Hypertension chronic December 08, 2024 8:47am [facility] Work Phone: 1([phone]) 943-923706-27-2025 Evaluation note* Diagnosis Onset Date Resolution Status [...] AMA (advanced maternal age) multigravida 35+ December 08 8:47am Depression acute December 08 8:47am Herpes simplex type 2 infection December 08 8:47am Obesity affecting December 08, 2024 8:47am Polycystic disease, ovaries December 08, 2024 8:47am acute December 08 8:47am Supervision of high-risk acute December 08 8:47am Hypertension chronic December 08, 2024 8:47am Abnormal glucose affecting acute December 13 9:15am Acute thoracic myofascial strain December 13 9:15am AMA (advanced maternal age) multigravida 35+ acute December 13 9:15am Breech presentation acute 2024 9:15am Depression acute December 13 9:15am Herpes simplex type 2 infection acute December 13 9:15am Obesity affecting December 13, 2024 9:15am Polycystic disease, ovaries acute December 13, 2024 9:15am acute December 13, 025 9:15am Supervision of high-risk acute December 13 9:15am Hypertension chronic December 13, 2024 9:15am [facility] Work Phone: [phone]) [phone] Evaluation note* Diagnosis Onset Date Resolution Status [...] 1:40pm Hypertension chronic October 30, 2024 1:40pm [facility] Work Phone: [phone]) [phone] Evaluation note* Diagnosis Onset Date Resolution Status [...] 2024 9:16am Hypertension chronic November 232024 9:16am [facility] Work Phone: 1(764) 356-976605-28-2025 Progress [facility] [address] [place] [address], [address] [place] [address] OFFICE VISIT Date of Service: 08/02/24 MR#: [id number] Acct: [id number] Name: SHU GASPAR Rep #: [id number] : 1990 Provider: Dr. 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 Date Name GA/Weeks Outcome Route Bth Weight Infant Gen Labor Lgth Anesthesia Del Locatn Provider FOB 01/05/22 Christian 39 live - full term 7lbs 8oz [...] between 32-34 weeks, deliver at 37-38 weeks.prefers recovery collector delivery if possible! JV- planning to stop metform in and do glucola at 26-28 weeks. continue baby asa and metoprolol. plan weekly testing @ 32 weeks, deliver at 37-38 weeks.prefers recovery collector delivery if possible! ACOG First Trimester First Trimester: Discussed Second Trimester Second Trimester: Signs and Symptoms of Labor, Selecting a care provider, Reproductive Life Planning & Contreception, Care Planning, Depression/Anxiety and Intimate Partner Violence; Discussed Tobacco Cessation Third Trimester Third Trimester: Pain Management Plans, Labor support person(s), Immediate Larc, Signs and Symptoms of Preeclampsia, Infant Feeding No , [place] Education and Family Medical Leave or Disability [...] Supervision of high-risk : Status: Acute Comment: Rebeca XIAO, SLIME 01/14/25, PC: Chad, PC: Parth (5) [...] Brittany DO> Date _ Anh Song DO [facility] Signature: Date (if applicable) CC: ~ [facility]05-01-2025 Evaluation note* Diagnosis Onset Date Resolution Status Admit Date Acute thoracic myofascial strain acute July 06, 2024 2: 57pm AMA (advanced maternal age) multigravida 35+ acute May 1st, 2025 2 :57pm Depression acute July 06, 2024 [...] 1:40pm Hypertension chronic October 30, 2024 1:40pm [facility] Work Phone: 1([phone]) 238-897604-04-2025 Evaluation note* Diagnosis Onset Date Resolution Status [...] Hypertension chronic September 01, 2 025 2:51pm [facility] Work Phone: 1([phone]) [phone] Evaluation note* Diagnosis Onset Date Resolution Status [...] Hypertension chronic October 02, 2 025 9:38am [facility] Work Phone: 1([phone]) 138-808002-26-2025 NotePap Smear Specimen AdequacyFebruary 2024 5:33pmComment.Satisfactory for evaluation. Endocervical and/or squamous metaplasticcells (endocervical component)are present.[facility] A#[id number] Regional Medical CenterComment on above:Satisfactory for evaluation. Endocervical and/or squamous metaplasticcells (endocervical component)are present.05-03-2024 NotePap Smear Specimen AdequacyFebruary 2024 5:33pmComment.Satisfactory for evaluation. Endocervical and/or squamous metaplasticcells (endocervical component)are present.[facility] A#[id number] Regional Medical CenterComment on above:Satisfactory for evaluation. Endocervical and/or squamous metaplasticcells (endocervical component)are present.05-03-2024 Evaluation note* Diagnosis Onset Date Resolution Status Admit Date Encounter for routine gynecological examination noneactive Februa ry 2024 11:53am [facility] Work Phone: 1([phone]) [phone] Evaluation note* Diagnosis Onset Date Resolution Status Admit Date Encounter for routine gynecological examination noneactive Februa ry 2024 11:53am Acute thoracic myofascial strain acute June 09, 2024 1:05pm AMA (advanced maternal age) multigravida 35+ acute June 09, 2024 1:05pm Depression acute June 09 1:05pm Herpes simplex type 2 infection acute June 09, 2024 1:05pm Obesity affecting acute June 09, 2024 1:05pm acute June 09 1:05pm Supervision of high-risk acute June 09, 2024 1:05pm Hypertension chronic June 09, 025 1:05pm [facility] Work Phone: 1([phone]) 922-349802-26-2025 Evaluation note* Diagnosis Onset Date Resolution Status [...] 2: 57pm Hypertension chronic July 06 2:57pm [facility] Work Phone: [phone]) [phone] Evaluation note* Diagnosis Onset Date Resolution Status Admit Date Encounter for routine gynecological examination noneactive 2024 11:53am Acute thoracic myofascial strain acute [...] 1 0:59am Hypertension chronic August 02 10:59am [facility] Work Phone: 1([phone]) 360-353205-31-2024 Hospital Discharge instructions Patient Education 08/05/2023 22:03:47 [...] or as directed by your healthcare provider [id number] The Glad to Have You. [address] [place] [address]14. All rights reserved. This information is not intended as a substitute for professional medical care. Always follow yourhealthcare professional's instructions. Follow Up Care 08/05/2023 15:51:25 With:Follow up with primary care provider Address:Unknown When:2-4 days [facility] 05-30-2024 Note Discharge Instructions Thank you for allowing [facility] to assist you with your healthcare needs. [...] or as directed by your healthcare provider [id number] The Glad to Have You. [address] [place] [address]483. All rights reserved. This information is not intended as a substitute for professional medical care. Always follow yourhealthcare professional's instructions. Additional Information VACCINATE! IT SAVES LIVES! Members of the community who have not yet received the COVID-19 vaccine and would like to receive it can visit one of [facility] vaccine clinics. There are many vaccine clinic locations within the [facility]. For locations and available times, please visit www.[email or web address]/. It is important to note that some COVID mobile vaccine clinics are held outdoors and may be canceled in rainy or stormy conditions. To learn more about pediatric vaccinations (ages 5-11), we invite you to visit the [facility] webpage. https://www.[email or web address].org/pages/[email or web address]-Vqqkx-Gjbhyqbefqk-Ofrhebrccw-Uqwoz-Xix stions.htmlTo learn more about the COVID-19 vaccine, we invite you to visit the CDC website for a list of frequently asked questions. https://www.cdc.gov/coronavirus/2019-ncov/vaccines/faq.html [facility] Patient Portal Access Instructions: Stay connected with your healthcare team and access your personal medical information anytime with the [facility] Patient Portal. If you would like a full copy of your medical records please contact the [facility] Medical Records Department Wednesday through Wednesday between 8a.m. and 4:30p.m. Please follow the directions below to access the portal: 1.Access the email account you provided upon registration to the [facility].2.Look for an invitation email from [facility].3.Open the email and access the invitation link: Accept Invitation to [facility]4.Fill in the required [place] to create your account. Sign into [email or web address].[email or web address] with your username and password that you [...] you will allow to register on the [facility] Patient Portal for access to your information. You can also access the [facility] Patient Portal on the [employer] [place]. Simply click on "Health Records" under "[employer]" and then click on the Consignd logo. HOW TO SAFELY DISPOSE OF PRESCRIPTION [...] Call your local pharmacy or go to [email or web address] to find one close to you.3.Make use of household items: Use cat litter or old coffee grounds to dispose medications if other options arenot available. Mix your drugs with these household products, seal them in an airtight container andthrow it into the garbage. Call [facility]: [phone] to be sure your drugs can be [...] aware that I should contact my doctor. Patient/Real Estate Leasing Manager Signature: Date/Time: Relationship to Patient: Witness Name/Signature: Date/Time: [facility]05-30-2024 Note ORIGINAL EXAMINATION: CTA OF THE [...] Date: 08/05/2023 9:17:05 PM [facility]ing [facility] Note ORIGINAL EXAMINATION: ONE XRAY VIEW [...] Date: 08/05/2023 5:14:52 PM Ordering Provider[facility] NoteSinus rhythm Consider anterior infarct Electronic Signature: DARIUS KAUFMAN MD 08/05/2023 16:34:46[facility] 12-20-2022 Chief complaint Narrative - Reported* An interactive audio and video telecommunication system which permits real time communications between the patient (at the originating site) and provider (at the distant site) was utilized to providethis telehealth service. * Verbal consent was requested and obtained from SHU GASPAR on this date, 02/24/2022 12:30 PM , for a telehealth visit. JN-Okpayhepfx-Hagkhto 1200 DO Work Phone: 1(484) 975-596812-20-2022 Chief complaint Narrative - Reported* An interactive audio and video telecommunication system which permits real time communications between the patient (at the originating site) and provider (at the distant site) was utilized to providethis telehealth service. * Verbal consent was requested and obtained from SHU GASPAR on this date, 02/24/2022 12:30 PM , for a telehealth visit. DN-Vvrqwxenfn-Vkuahad 1200 DO Work Phone: [phone] 272-543112-02-2022 History of Present illness Narrative* Pt. to [...] had her first menstrual cycle * 02/13/22 TQ-DMZWV-Aspzgmxo 4397 DO Work Phone: 1(251) 587-835011-02-2022 NoteSend Summary: Note Recipients: Discharge: Summary: Admission Date: .04-Jan-2022 08:18:00 Discharge Date: 07-Jan-2022 Attending Physician at Discharge: Yasmin Lackey Admission Reason: IOL Final Discharge Diagnoses: (normal spontaneous vaginal delivery) Procedures: none Condition at Discharge: Satisfactory Disposition at Discharge: .Home Vital Signs: T PRBPMAPSpO2 Value36.42117560/668691% Date/Time01/07 8: 8: 8: 8: 8: 8:05 Range(36C - 36.8C ) (75 - 93 ) (16 - 20 ) (111 - 137 )/ (70 - 90 ) (84 - 106 ) (95% - 98% ) Date: Weight/Scale Type:Height: 30-Dec-2021 08:36763 kg / pldkcyqm564.4 cm Physical Exam: General: well appearing, well-nourished, [...] home Maternal Well-Being - emotional support provided Wayne Feeding - /pumping encouraged; consult prn notable [...] 05-Jan-2022 09:17:00 Radiology Results - Pending: None [place] Suicide Risk: negative Discharge Instructions: Activity: Return [...] discharge: Full Code Electronic Signatures: Yasmin Lackey (LOGISTICS ACCOUNT MANAGER-STEAM ROOM ATTENDANT) (Signed 07-Jan-2022 09:54) Authored: Send Summary, Summary Content, Immunizations, Ongoing Care, DNR Status, Note Completion Last Updated: 07-Jan-2022 09:54 by Yasmin Lackey (LOGISTICS ACCOUNT MANAGER-STEAM ROOM ATTENDANT)[facility]10-31-2022 History of Present illness Narrative* The patient is being seen for follow up. The patient is status post vaginal delivery. Obs tetrical complications include pre-eclampsia and After delivery. Delivery date was 01.05.22. The baby is a boy. The baby's name is Chad. weight was 7 lbs, 8 oz. complications includerespiratory distress. He was circumcised. The [...] BID. No h/o CHTN prior to . Swapna 4465 DO Work Phone: 1(895) 751-766110-31-2022 NoteProvider Information: Maternal Delivery Information: Delivery Type: [...] without a resident Electronic Signatures: Tameka Gonsalves (LOGISTICS ACCOUNT [facility]) (Signed 05-Jan-2022 07:31) Authored: Provider Information, Hemorrhage Risk, Note Completion Last Updated: 05-Jan-2022 07:31 by Tameka Gonsalves ([facility]) References: 1. Data Referenced From "History and Physical - OB" 04-Jan-2022 09:54[facility]10-30-2022 NoteClinical Event: Clinical Event Note: Topiclabor progress [...] Valdez APRN CNM Electronic Signatures: Grace Valdez (ALLY) (Signed 04-Jan-2022 17:17) Authored: Clinical Event Note Last Updated: 04-Jan-2022 17:17 by Grace Valdez (MAGALY-JASPAL)[facility]10-30-2022 NoteClinical Event: Clinical Event Note: Topiclabor progress [...] Electronic Signatures: Grace Valdez (MAGALY-JASPAL) (Signed 04-Jan-2022 13:16) Authored: Clinical Event Note Last Updated: 04-Jan-2022 13:16 by Grace Valdez (MAGALY-JASPAL)[facility]10-30-2022 NoteHPI/OB History: Care Provider: Tom Bull HPI Descriptive Info: HPI 31 year old @ 39.2 weeks by 8.5 week US. She presents for IOL. Denies or presents with bleeding or leaking. Baby active. 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 MVP 6.5 on 12/22. 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 hx: PCOS, HPV OBHx: n/a Fam hx: [...] Date: 13-Jun-2021 HBsAG Results: negative Hemoglobin A1C (): 13-Jun-2021 Hemoglobin A1C: 5.2 % Estimated Average Glucose: 103 HIV Date: 13-Jun-2021 HIV Results: negative Rubella Date: 03-Oct-2021 Rubella Results: nonimmune Rubella Comments: Result Value Negative Syphilis (yy): 03-Oct-2021 Syphilis Results: negative Antepartum/: Antepartum/PP: Date Earliest Wfmrhyicie63-Tnr-6578 EGA at that study (weeks)8.5 SLIME by [id number]-[id number] Final [id number] Current EGA:39.2 Patient is > or = [...] Itching, Gynecomastia Objective: Objective Information: T PRBPMAPSpO2 Value36.65537324/9919196% Date/Time01/04 8: 8: 8: 8: 8: 8:45 [...] Res (more content not included)...[facility]04-08-2022 Note Date of Procedure: 06/13/2021 Pathologist: [facility], Cytology Date Reported: 06/24/2021 Date Received: [...] Range: Negative Slide(s) initially screened by a Judicial Reporter at [facility], [address] [place] [address] Testing for high-risk (HR) type of human [...] verified by the Molecular Diagnostic Laboratory at [facility]. The lab is certified under the Clinical Laboratory Amendments of 1988 (CLIA 88) as qualified to perform high complexity clinical laboratory testing. This specimen has been analyzed by the [employer] FinanzasPrep Imaging System (Capablue, Softdesk.), an automated imaging and review system, which assists the laboratory in evaluating cells on ThinPrep Pap tests. Following automated imaging, selected [place] from every slide were reviewed by a gm/svp global publisher business and/or pathologist. Electronically Signed Out By [facility], Cytology//JMD By the signature on this [...] Source of Specimen A: THINPREP PAP CERVICAL [facility] Department of Pathology [address] [place], [place] [address]Comment on above:Performed By: #### C #### [facility] Cytology [address] [place], [place] [address]-01-2022 History of Present illness Narrative* 31 yo MFG1P! referred by OB. PMH May 2021, in September 2021. together for one yr. Working on [employer] * Delivered baby boy, Chad, 01/05/22, unplanned via at 39wga. No trauma. [...] and parents one hour away. is fantastic. [place] like want to escape, no SI/HI. Had [...] No panic, no OCD, no catastrophic thinking " self rated anxiety in past week 09/14 [...] hands, * FPH * Maternal : Mother( Wellbutrin) , grandmother , aunt all have depression * Paternal None * Sibling on mother side attempts SI * Completed suicides in [place] None * PSYCHOSOCIAL Hx * B/R [place] * Parents and together * Siblings middle child of siblings * Education : Ass Degree in Nursing , Ass Arts * Employed since 2014 * since September 2021 , * No legal issues DJ-Oufqcjawfr-Ribckaf 1200 DO Work Phone: 1([phone]) 277-428703-01-2022 History of Present illness Narrative* SHU is a 31 yo MFG1P! referred by OB. PMH Hx of depression w/ SI Attempt, and anxiety treated w/ Escitalopram 20 mg since age 15 yo. in May 2021, in September 2021, together for one yr. Working on [employer] Employee * Delivered baby boyChad, 01/05/22, from [...] helpful, parents one hour away. is fantastic. [place] like want to escape, no SI/HI. [place] [...] No panic, no OCD, no catastrophic thinking " self rated anxiety in past week 7/10 [...] None * PSYCHOSOCIAL Hx * B/R [place] * Parents and together * Siblings middle child of siblings * Education : Ass Degree in Nursing , Ass Arts * Employed since 2014 * since September 2021 , * No legal issues QY-Vknqlecawz-Dsiysyj 1200 DO Work Phone: [phone]) [phone] History of Present illness Narrative1) Pt presents today stating she took a test 04/30/21 and it was positive. She states shethinks she has a yeast infection, she states it is itchy.-[facility] Work Phone: Evaluation + Plan note No data available for this section [facility] Evaluation noteN/ADept. 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 Evaluation note* [...] affect, interactiveConstitutional: alert, oriented [facility] note[facility] assessment information available [facility] Work Phone: History of Present illness Narrative* The patient is being seen for follow-up of obesity. The patient reports doing well and a weight loss of 6 pounds. * HEALTH MAINTENANCE - * FLU: utd * COVID (Moderna, Pfizer): [facility] Work Phone: History of Present illness Narrative* The patient is being seen for follow-up of obesity. The patient reports doing well and a weight loss of 6 pounds. * HEALTH MAINTENANCE - * FLU: utd * COVID (Moderna, Pfizer): NaviExpert [facility] Work Phone: History of Present illness Narrative* [...] time off per month is patient requesting? [facility] Work Phone: History of Present illness [...] time off per month is patient requesting? [facility] Work Phone: History of Present illness NarrativeThe patient is being seen for initiating contraception. Patient goals include prevention.The patient is currently asymptomatic.[facility] Work Phone: Hospital Discharge instructions* Activity:Return to [...] Gold Form - Other Clinicians:Nursing Instructions: The [place] [employer] recommends that pacifier use [...] infant is learning to breastfeed. Other Clinician Instructions: [...] to nearest emergency room. *Information obtained from ANIYAH dallas:Save Your Life: Get Care for These POST- Warning Signs [facility] Dis[facility] instructions Additional Instructions Call tomorrow to schedule appt for Wednesday OB BP check with Return to hosp or call theater projectionist OB doctor if: JEFFERS is unresolved, visual dist, right upper abdomenal pain, or rapid weight gain from swelling. Check BP at home: AM, afternoon, and evening. If >160/110 return to hosp technology support analyst Rx at [facility] for Labetelol 100 mg take in AM and PM. Fiorcet for headache. Fiorcet has tylenol so don't take more than 4 Grams of Tylenol daily to prevent liver damage.[facility] Work Phone: Hospital Discharge instructionsAdditional Instructions keep scheduled appointments for next week.[facility] Work Phone: Progress note Author Anh Soto [facility] Note Date/Time August 02, 2024 11:33 am [facility] [address], [address] [place] [address] OFFICE VISIT Date of Service: 08/02/24 MR#: [id number] Acct: [id number] Name: SHU GASPAR Rep #: [id number] : 1990 Provider: Dr. Juana Song DO Age/Sex: 33/F [place] [facility] Status: Signed Intake Vital Signs 06/09/24 13:11 07/06/24 15:06 08/02/24 11:02 08/02/24 11:04 Height 5 ft 2 in 5 ft 2 in 5 ft 2 in 5 ft 2 in Weight: 266 lb BMI 48.6 BP 118/75 Intake Visit Reasons: 16wk ob 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 Supervisor Required: No Is patient in pain?: No Allergies No Known Allergies Allergy (Verified 08/02/24 11:02) Medications ?Medication ?Instructions ?Recorded ?Confirmed ?Type dyaqkybo-thi-Sk-FA 1 mg tab PO 01/11/2208/02 History tablet [...] No household members: spouse and children [facility]: 1 current occupational status: [...] physical activity do you participate in: none baylee/samaritan: None seatbelt use: always do you feel [...] Delivery Date: 01/05/22 Last Updated by: Andressa Ainsley, RN HTN during labor..(no pre-e but now [...] between 32-34 weeks, deliver at 37-38 weeks.prefers recovery collector delivery if possible! JV- planning to stop metform in and do glucola at 26-28 weeks. continue baby asa and metoprolol. plan weekly testing @ 32 weeks, deliver at 37-38 weeks.prefers recovery collector delivery if possible! ACOG First Trimester First [...] Cosigner Signature: Date (if applicable) CC: ~ [facility] Work Phone: Progress note Author Carmen Perdomo [facility] Note Date/Time October 02, 2024 10:0 2am [facility] [address] [place] [address], [address] [place] [address] OFFICE VISIT Date of Service: 10/02/24 MR#: [id number] Acct: [id number] Name: SHU GASPAR Rep #: [id number] : 1990 Provider: AMIE Perdomo Age/Sex: 33/F Location: [facility] Status: Signed Intake Vital Signs 07/06/24 15:06 09/01/24 14:59 10/02/24 09:42 Height 5 ft 2 in 5 ft 2 in 5 ft 2 in Weight: 265 lb 6 oz BMI 48.5 BP 124/83 H Intake Visit Reasons: 24 wk ob Chief Complaint: 24wk OB 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 Supervisor Required: No Is patient in pain?: No Allergies No Known Allergies Allergy (Verified 10/02/24 09:40) Medications 3 ?Medication ?Instructions ?Recorded ?Confirmed ?Type bjwsnnqx-did-Jz-FA 1 mg tab PO 01/11/2210/02 History tablet [...] physical activity do you participate in: none baylee/samaritan: None seatbelt use: always do you feel safe at home: Yes additional social history: : Parth Leggett History 2 Elective abortions Hx Para 1 Spontaneous abortions Hx # Term Pregnancies 1 Ectopic pregnancies Hx # Pregnancies Multiple births # of living children 1 Past Pregnancies Del. Date Name GA/Weeks Outcome Route Bth Weight Infant Gen Labor Lgth Anesthesia Del Locatn Provider FOB 01/05/22 Christian 39 live - full term 7lbs 8oz [...] between 32-34 weeks, deliver at 37-38 weeks.prefers recovery collector delivery if possible! JV- planning to stop metform in and do glucola at 26-28 weeks. continue baby asa and metoprolol. plan weekly testing @ 32 weeks, deliver at 37-38 weeks.prefers recovery collector delivery if possible! 09/01/24 -?-?-?-?-?-?-?-?-?-?-?-?- 20w 5d [...] and Symptoms of Preeclampsia, Feeding No , Wayne Education and Family Medical Leave or Disability [...] Acute Comment: PRR, , SLIME 01/14/25, PC: Chad PC: Parth (5) : Status: Acute Qualifiers: [...] Cosigner Signature: Date (if applicable) CC: ~ [facility] Work Phone: Progress note Author Tawana Timmons [facility] Note Date/Time November 23, 2024 10:01am [facility] [address] [place] [address], [address] [place] [address] OFFICE VISIT Date of Service: 11/23/24 MR#: [id number] Acct: [id number] Name: SHU GASPAR Rep #: [id number] : 1990 Provider: Dr. Behzad Timmons MD Age/Sex: 33/F [place] [facility] Status: Signed Intake Vital Signs 10/02/24 09:42 10/30/24 13:49 11/23/24 09:22 Height 5 ft 2 in 5 ft 2 in 5 ft 2 in Weight: 268 lb 5 oz 275 lb BMI 49.1 50.3 BP 120/83 H 114/75 Intake Visit Reasons: 32 wk ob 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 Supervisor Required: No Is patient in pain?: No Allergies No Known Allergies Allergy (Verified 11/23/24 09:26) Medications ?Medication ?Instructions ?Recorded ?Confirmed ?Type qyhzcqzk-bfm-Wh-FA 1 mg tab PO 01/11/2211/23 History tablet [...] physical activity do you participate in: none baylee/samaritan: None seatbelt use: always do you feel safe at home: Yes additional social history: : Parth Leggett History 2 Elective abortions Hx Para 1 Spontaneous abortions Hx # Term Pregnancies 1 Ectopic pregnancies Hx # Pregnancies Multiple births # of living children 1 Past Pregnancies Del. Date Name GA/Weeks Outcome Route Bth Weight Gen Labor Lgth Anesthesia Del Locatn Provider FOB 01/05/22 Christian 39 live - full term 7lbs 8oz [...] between 32-34 weeks, deliver at 37-38 weeks.prefers recovery collector delivery if possible! JV- planning to stop metform in and do glucola at 26-28 weeks. continue baby asa and metoprolol. plan weekly testing @ 32 weeks, deliver at 37-38 weeks.prefers recovery collector delivery if possible! 09/01/24 -?-?-?-?-?-?-?-?-?-?-?-?- 20w 5d [...] and Symptoms of Preeclampsia, Feeding No , Wayne Education and Family Medical Leave or Disability Forms Immunizations Boostrix Tdap 2.5 Lf unit-8 mcg-5 Lf/0.5 mL intramuscular syringe Performing Provider: Tawana Timmons MD Performing Location: [facility] Administered by: Ade Price on 11/23/24 09:31 Dose Route Admin Location Dispensed Lot Number Expiration Date Pack age NDC NDC Chuck Boner 0.5 mL IM Right Deltoid 0.5 mL [id number] 11/05/26 [id number] SANOFI- PASTEUR VIS Given Date VIS Provided [...] Supervision of high-risk : Status: Acute Comment: DAMEON, , SLIME 01/14/25, PC: Chad, PC: Parth [...] Cosigner Signature: Date (if applicable) CC: ~ [facility] Work Phone: Progress note Author Ade Fam [facility] Note Date/Time November 30, 2024 9:50am [facility] [address] [place] [address], [address] [place] [address] OFFICE VISIT Date of Service: 11/30/24 MR#: [id number] Acct: [id number] Name: SHU GASPAR Rep #: [id number] : 1990 Provider: ALVINA Fam Age/Sex: 33/F [place] [facility] Status: Signed Intake Vital Signs 10/30/24 13:49 11/23/24 09:22 11/30/24 09:42 11/30/24 09:44 Height 5 ft 2 in 5 ft 2 in 5 ft 2 in 5 ft 2 in Weight: 277 lb 6 oz BMI 50.7 BP 129/84 H Intake Visit Reasons: 33 WK OB Chief Complaint: 33 Week OB 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 Supervisor Required: No Is patient in pain?: No Allergies No Known Allergies Allergy (Verified 11/30/24 09:41) Medications ?Medication ?Instructions ?Recorded ?Confirmed ?Type qvmqkewc-kqa-Uv-FA 1 mg tab PO 01/11/2211/30 History tablet [...] physical activity do you participate in: none baylee/samaritan: None seatbelt use: always do you feel safe at home: Yes additional social history: : Parth Leggett History 2 Elective abortions Hx Para 1 Spontaneous abortions Hx # Term Pregnancies 1 Ectopic pregnancies Hx # Pregnancies Multiple births # of living children 1 Past Pregnancies Del. Date Name GA/Weeks Outcome Route Bth Weight Infant Gen Labor Lgth Anesthesia Del Locatn Provider FOB 01/05/22 Christian 39 live - full term 7lbs 8oz [...] between 32-34 weeks, deliver at 37-38 weeks.prefers recovery collector delivery if possible! JV- planning to stop metform in and do glucola at 26-28 weeks. continue baby asa and metoprolol. plan weekly testing @ 32 weeks, deliver at 37-38 weeks.prefers recovery collector delivery if possible! 09/01/24 -?-?-?-?-?-?-?-?-?-?-?-?- 20w 5d [...] and Symptoms of Preeclampsia, Feeding No , Wayne Education and Family Medical Leave or Disability [...] 11/30/24 0953 <Electronically signed by Ade dallas IN FLIGHT REFUELING OPERATOR IN FLIGHT REFUELING OPERATOR-C> Date _ Ade Fam IN FLIGHT REFUELING OPERATOR IN FLIGHT REFUELING OPERATOR-C Cosigner Signature: Date (if applicable) CC: ~ [facility] Work Phone: Progress note Author Anh Soto [facility] Note Date/Time December 08, 2024 9: 46am [facility] [address] [place] [address], [address] [place] [address] OFFICE VISIT Date of Service: 12/08/24 MR#: [id number] Acct: [id number] Name: SHU GASPAR Rep #: [id number] : 1990 Provider: Dr. Juana Song DO Age/Sex: 33/F [place] [facility] Status: Signed Intake Vital Signs 10/02/24 09:42 11/30/24 09:44 12/08/24 08:49 12/08/24 09:44 Height 5 ft 2 in 5 ft 2 in 5 ft 2 in Weight: 276 lb 4 oz 276 lb 6.4 oz BMI 50.5 BP 123/79 H 123/79 H Intake Visit Reasons: 34 wk ob 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 Supervisor Required: No Is patient in pain?: No Allergies No Known Allergies Allergy (Verified 12/08/24 08:49) Medications ?Medication ?Instructions ?Recorded ?Confirmed ?Type ndggwpbx-bjm-Iw-FA 1 mg tab PO 01/11/2212/08 History tablet [...] physical activity do you participate in: none baylee/samaritan: None seatbelt use: always do you feel [...] 123/85 -?-?-?-?-?-?-?-?-?-?-?-?- 168 -?-?-?-?-?-?-?-?-?-?-?-?- SM- no vb crmdebbyi elaina will get new ob labs today [...] between 32-34 weeks, deliver at 37-38 weeks.prefers recovery collector delivery if possible! JV- planning to stop metform in and do glucola at 26-28 weeks. continue baby asa and metoprolol. plan weekly testing @ 32 weeks, deliver at 37-38 weeks.prefers recovery collector delivery if possible! 09/01/24 -?-?-?-?-?-?-?-?-?-?-?-?- 20w 5d [...] POC Urinalysis 2 Dip (Clinic) Today 12/08/24 [id number] <Electronically signed by Anh Hoffman DO> Date _ Anh Song DO Cosigner Signature: Date (if applicable) CC: ~ [facility] Work Phone: Progress note Author Tawana Timmons [facility] Note Date/Time December 13, 2024 9: 36am [facility] [address] [place] [address], [address] [place] [address] OFFICE VISIT Date of Service: 12/13/24 MR#: [id number] Acct: [id number] Name: SHU GASPAR Rep #: [id number] : 1990 Provider: Dr. Behzad Timmons MD Age/Sex: 33/F [place] [facility] [place]: Signed Intake Vital Signs 10/02/24 09:42 12/08/24 08:49 12/13/24 09:21 Height 5 ft 2 in 5 ft 2 in 5 ft 2 in Weight: 276 lb 6 oz BMI 50.5 BP 126/85 H Intake Visit Reasons: 35 WK OB 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 Supervisor Required: No Is patient in pain?: No Allergies No Known Allergies Allergy (Verified 12/13/24 09:18) Medications ?Medication ?Instructions ?Recorded ?Confirmed ?Type mqeerpyd-hea-Hi-FA 1 mg tab PO 01/11/2212/13 History tablet [...] physical activity do you participate in: none baylee/samaritan: None seatbelt use: always do you feel [...] between 32-34 weeks, deliver at 37-38 weeks.prefers recovery collector delivery if possible! JV- planning to stop metform in and do glucola at 26-28 weeks. continue baby asa and metoprolol. plan weekly testing @ 32 weeks, deliver at 37-38 weeks.prefers recovery collector delivery if possible! 09/01/24 -?-?-?-?-?-?-?-?-?-?-?-?- 20w 5d [...] Symptoms of Preeclampsia, Infant Feeding No , [place] Education and Family Medical Leave or Disability [...] in third trimester O09.93 Trimester: third trimester 35 weeks gestation of [...] Cosigner Signature: Date (if applicable) CC: ~ [facility] Work Phone: Reason for referral (narrative)* Name Reason for referral NA 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 Reason for referral (narrative)No reason for referral information [facility] Work Phone: Family History No [...] itchy.* PPV * EPDS= 5 * Declined Home Security Alarm Installer: LEONARDA Oquendo * A telephone visit (audio only) between the patient (at the originating site) and the provider (at the distant site) was utilized to provide this telehealth service. 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) May 03, 2024 11:53am Amb Documentation May [...] 2024 2:57pm Chief Complaint Admit Date 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) May 03, 2024 11:53am Amb Documentation May 26, 2024 8:2 2am NOB LMP 04/09June 09, 2024 1:05 pm 12wk OB July 06, 2024 2:57pm OBESITY July 21, 2024 8:53a m July 21, 2024 9:05a m Chief Complaint Admit Date 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) May 03, 2024 11:53am Amb Documentation May [...] infection June 1:05pm Obesity affecting June 09, 025 1:05pm June 09, 2024 1:05 pm [...] 025 9:38am Polycystic disease, ovaries October 02, 025 9:38am October 02, 2024 9:38 am [...] 025 2:51pm Polycystic disease, ovaries September 01 025 2:51pm September 01, 2024 2:51 pm [...] infection August 2:51pm Obesity affecting September 01 025 2:51pm Polycystic disease, ovaries September 01 025 2:51pm September 01, 2024 2:51 pm Supervision of high-risk September 01, 2024 2:51pm Hypertension September 01, 2024 2:51 pm Acute thoracic myofascial strain October 022024 9:38am AMA (advanced maternal age) multigravida 35+ October 02, 2024 9:38am Depression October 02, 2024 9:38 am Herpes simplex type 2 infection September 9:38am Obesity affecting October 02, 025 9:38am Polycystic disease, ovaries October 02 2 025 9:38am October 02, 2024 9:38 [...] 2024 1: 40pm Abnormal glucose affecting Sep tember 2024 9:16am Acute thoracic myofascial strain Septemb er 2024 9:16am AMA (advanced maternal age) multigravida 35+ November 23, 2024 9:16am Depression November 23, 2024 9:16am Herpes simplex type 2 infection Sudhakar meyer 2024 9:16am Obesity affecting November 232024 9:16am Polycystic disease, ovaries November 232024 9:16am November 23, 2024 9:16am Supervision of high-risk Mayank contrerasjonna 2024 9:16am Hypertension November 23, 2024 9:16am [...] 30, 2024 1: 40pm Abnormal glucose affecting [facility] 2024 9:16am Acute thoracic myofascial strain [facility] 2024 9:16am AMA (advanced maternal age) multigravida 35+ November 23, 2024 9:16am Depression November 23, 2024 9:16am Herpes simplex type [address] [facility] 2024 9:16am Obesity affecting November 232024 9:16am Polycystic disease, ovaries November 232024 9:16am November 23, 2024 9:16am Supervision of high-risk [facility] 2024 9:16am Hypertension November 23, 2024 9:16am Abnormal glucose affecting [facility] 2024 9:39am AMA (advanced maternal age) multigravida 35+ November 30, 2024 9:39am Depression November 30, 2024 9:39am Herpes simplex type [address] [facility] 2024 9:39am Obesity affecting November 302024 9:39am November 30, 2024 9:39am Supervision of high-risk [facility] 2024 9:39am Hypertension November 30, 2024 [...] 2024 1: 40pm Abnormal glucose affecting Sep tember 2024 9:16am Acute thoracic myofascial strain Septemb er 2024 9:16am AMA (advanced maternal age) multigravida 35+ November 23, 2024 9:16am Depression November 23, 2024 9:16am Herpes simplex type 2 infection Septembe r 2024 9:16am Obesity affecting November 232024 9:16am Polycystic disease, ovaries November 232024 9:16am November 23, 2024 9:16am Supervision of high-risk Septe er 2024 9:16am Hypertension November 23, 2024 9:16am Abnormal glucose affecting Sep tem2024 9:39am AMA (advanced maternal age) multigravida 35+ November 30, 2024 9:39am Depression November 30, 2024 9:39am [facility] 9:39am Obesity affecting November 302024 9:39am November 30, 2024 9:39am Supervision of high-risk Septe 2024 9:39am Hypertension November 30, 2024 9:39am Abnormal glucose affecting Oct mari2024 8:47am Acute thoracic myofascial strain December 08, 2024 8:47am AMA (advanced maternal age) multigravida + December 08, 2024 8:47am Depression December 08, [...] 025 9:38am Polycystic disease, ovaries October 02, 025 9:38am October 02, 2024 9:38 am [...] 2024 9:16am Supervision of high-risk Septe [facility] 2024 9:16am Hypertension November 23, 2024 9:16am Abnormal glucose affecting Nov 2025 9:39am AMA (advanced maternal age) multigravida 35+ November 30, 2024 9:39am Depression November 30, 2024 9:39am [facility] 9:39am Obesity affecting November 302024 9:39am November 30, 2024 9:39am [facility] 9:39am Hypertension November 30, 2024 9:39am Abnormal [...] section and content) DATE CREATED AUTHOR 04/04/2020 [facility] DATE CREATED AUTHOR AUTHOR'S ORGANIZ ATION 03/01/2022 [facility] DATE CREATED AUTHOR AUTHOR'S ORGANIZ ATION 03/03/2022 [employer] DATE CREATED AUTHOR AUTHOR'S ORGANIZ ATION 08/17/2022 [facility] DATE CREATED AUTHOR AUTHOR'S ORGANIZ ATION 08/15/2023 [facility] ([place]) DATE CREATED AUTHOR AUTHOR'S ORGANIZ ATION 06/25/2024 [facility] DATE CREATED AUTHOR AUTHOR'S ORGANIZ ATION 09/16/2024 [facility] DATE CREATED AUTHOR AUTHOR'S ORGANIZ ATION 12/24/2024 [facility] <item> Privacy Markings (unrecogniz ed section and [...] Labor PreferencesCB/ BF classes: nolabor support person: Ikerbor intervention preferences: []pain management options preferred: []cut [...] 02, 2024 End: August 02, 2024 Dr. Ahn Song DO Attending Provider Activ e Start: [...] 2024 End: November 30, 2024 Ade Fam IN FLIGHT REFUELING OPERATOR, IN FLIGHT REFUELING OPERATOR-C Attending physician Active Start: November 30, 2024 [...] BE BASED ON THE PRIMARY CLINICAL RECORDS. [facility] [employer] [facility]. provides no warranty or guarantee of the accuracy or completeness of information in this document.
[2024-12-25 20:00] VITALS: BP 138/91; PULSE 89; RESP 16; TEMP 36.6
[2024-12-25 21:13] VITALS: BMI 20251020.0; BMI 2113.0
--- NOTE | 2024-12-25 21:19 | HP.PCM.OB_ITS ---
HPI - General General Date of Admission: 12/25/24 Date of Service: 12/25/24 HPI Narrative BILLIE GASPAR, is a 34 F at 37.1 weeks gestation who presents to unit for IOL for HTN, AMA, and obesity. plan cytotec/molina bulb/ and pitocin. Bedside US completed at request of nursing for position-verified Vertex. Maternal Data Information SLIME Calculator Estimated Delivery Date Method Current WG Current Estimate 01/14/25 LMP (Certain) 37w 1d Other Estimates 01/17/25 Ultrasound #1 36w 5d Final SLIME: 01/14/25 Final SLIME Source: US >20 weeks Gestational age: 37.1 PFSH PFS Medical History Polycystic disease, ovaries HPV test positive Herpes simplex type 2 infection Hypertension Gallstone Acute thoracic myofascial strain Depression Migraine Home Medications Medication Instructions Recorded Last Taken Type bjyxvkws-qee-Ah-FA 1 mg 1 tab PO DAILY pregna ncy 01/11/22 12/24/24 History tablet escitalopram oxalate 20 mg tablet 20 mg PO QDAY Depres lul 03/17/24 12/24/24 History (Lexapro) metoprolol succinate 100 mg 100 mg PO BID Hypertension 03/17/24 12/24/24 History tablet,extended release 24 hr valacyclovir 500 mg tablet 500 mg PO QDAY #30 tabs Unknown Rx (Valtrex) Allergy/AdvReac Type Severity Reaction Status Date / Time No Known Allergies Allergy Verified 12/25/24 20:31 Family History Brother Alcoholism Colon cancer Myocardial infarction, Onset Age: 44 Mother Depression Father Diabetes Hypertension Grandmother CVA (cerebral vascular accident) Grandmother Thyroid disorder Uterine cancer Other Cancer Surgical History History of colposcopy History of laparoscopic cholecystectomy Social History adopted: No household members: spouse and children housing: condominium number of children: 1 current occupational status: employed 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: No pets and animals: Yes ( taking care of litterbox) pets and animals: cat(s) history of recent travel: No sexually active: Yes Smoking Status: Never smoker second hand exposure: No alcohol intake: never substance use type: does not use well-balanced diet: about half the time caffeine: Yes Type: coffee Number of servings: 1 eating out: 1-3 times/week during the past year weight has: remained stable what type of physical activity do you participate in: none baylee/mosque: None seatbelt use: always do you feel safe at home: Yes additional social history: : Parth Leggett History 2 Elective abortions Hx Para 1 Spontaneous abortions Hx # Term Pregnancies 1 Ectopic pregnancies Hx # Pregnancies Multiple births # of living children 1 Past Pregnancies Del. Date Name GA/Weeks Outcome Route Bth Weight Infant Gen Labor Lgth Anesthesia Del Locatn Provider FOB 01/05/22 [place] 39 live - full term 7lbs 8oz Male e pidural [facility] Delivery Date: 01/05/22 Last Updated by: Andressa Schmitz RN HTN during labor..(no pre-e but now has chronic HTN) Visit Details Expected Delivery Route/Plan Labor Preferences CB/BF classes: no labor support person: Parth labor intervention preferences: [] pain management options preferred: [] cut cord/dad catch: [] : [] PP control planned: [] discussed possible routes of delivery and associated risks: [] special requests: [] Plans Covid status: [] Flu vaccine: [] Tdap vaccine: given Rhogam: NA LARC form signed: yes Problem list reviewed and updated with the most current plan of care details and appropriate orders placed. Relevant counseling for the gestational age provided. Continue routine care and follow up unless otherwise noted in visit notes/problem list details OB Flowsheet Initial Weight: 254 lb Date - - - - - - - - - - - - - EGA Weight BP Urine Prot - - - - - - - - - - - - - Glucose FHR FuHt Pres Dilation - - - - - - - - - - - - - Effaced St Visit Note 06/09/24 - - - - - - - - - - - - - 8w 5d 254 lb 8 oz (+8 oz) 125/80 - - - - - - - - - - - - - 178 - - - - - - - - - - - - - KW- CRL cons wit h dates. Accepts NIPT will get drawn at next appt due to BMI. discussed POC with CHTN. will start asa at 12 weeks 07/06/24 - - - - - - - - - - - - - 12w 4d 251 lb 8 oz (-2 lb 8 oz) 123/85 - - - - - - - - - - - - - 168 - - - - - - - - - - - - - SM- no vb crmapi ng will get new ob labs today 08/02/24 - - - - - - - - - - - - - 16w 3d 266 lb (+12 lb) 118/75 Negative - - - - - - - - - - - - - Negative 145 - - - - - - - - - - - - - JV- planning to stop metformin and do glucola at 26-28 weeks. continue baby asa and metoprolol. plan twice weekly testing between 32-34 weeks, deliver at 37-38 weeks. JV- planning to stop metform in and do glucola at 26-28 weeks. continue baby asa and metoprolol. plan twice weekly testing between 32-34 weeks, deliver at 37-38 weeks.prefers lean specialist delivery if possible! JV- planning to stop metform in and do glucola at 26-28 weeks. continue baby asa and metoprolol. plan weekly testing @ 32 weeks, deliver at 37-38 weeks.prefers lean specialist delivery if possible! 09/01/24 - - - - - - - - - - - - - 20w 5d 259 lb 2 oz (+5 lb 2 oz) 119/86 Negative - - - - - - - - - - - - - Negative 150 - - - - - - - - - - - - - JV- no lof, vagi nal bleeding, or dec fm. normal anatomy with exception of decreased views of heart 10/02/24 - - - - - - - - - - - - - 25w 1d 265 lb 6 oz (+11 lb 6 oz) 124/83 Negative - - - - - - - - - - - - - Negative 145 - - - - - - - - - - - - - KW- no vb/lof/ct x. good fm. glucose discussed. KW- no vb/lof/ctx. good fm. glucose discussed. reviewed US 10/30/24 - - - - - - - - - - - - - 29w 1d 268 lb 5 oz (+14 lb 5 oz) 120/83 Negative - - - - - - - - - - - - - Negative 140 - - - - - - - - -- - - - - KW- no vb/lof/ct x. good fm. glucose done today. tdap and LARC today. would like IUD PP. KW- no vb/lof/ctx. good fm. glucose done today. tdap and LARC today. would like IUD PP. BPPs and growths ordered starting at 32 weeks. 11/23/24 - - - - - - - - - - - - - 32w 4d 275 lb (+21 lb) 114/75 - - - - - - - - - - - - - 140 33 - - - - - - - - - - - - - SM-no vb lof goo d fm no regular ctx 11/30/24 - - - - - - - - - - - - - 33w 4d 277 lb 6 oz (+23 lb 6 oz) 129/84 Negative - - - - - - - - - - - - - Negative 142 35 - - - - - - - - - - - - - MH-No VB, LOF. G ood FM. States passed BPP prior to this appt today 12/08/24 - - - - - - - - - - - - - 34w 5d 276 lb 6.4 oz (+22 lb 6.4 oz) 123/79 Negative - - - - - - - - - - - - - Negative 135 Breech - - - - - - - - - - - - - JV- patient woul d like a version if still breech at her 36 week BPP. no lof, vaginal bleeding, or dec fm. 12/13/24 - - - - - - - - - - - - - 35w 3d 276 lb 6 oz (+22 lb 6 oz) 126/85 Negative - - - - - - - - - - - - - Negative 130 36 - - - - - - - - - - - - - Sm- no vb lof go od fm no rgular ctx discussed ECV 12/21/24 - - - - - - - - - - - - - 36w 4d 279 lb 2 oz (+25 lb 2 oz) 130/86 Negative - - - - - - - - - - - - - Negative 150 Cephalic 1 - - - - - - - - - - - - - 50 -3 KW- no vb/ lof/ctx. good fm. Has BPP after appt. was vertex last scan. GBS today. IOL set up KW- no vb/lof/ctx. good fm. Has BPP after appt. was vertex last scan. GBS today. IOL set up-requesting 12/25 NST FHR Rate Baby A Baseline: 130 Variability:: Moderate Accelerations:: 15 x 15 Decelerations:: None NST Reactive:: Yes FHR Category:: Category I ROS Constitutional Constitutional: Denies change in weight, fatigue, fever(s), headache(s), poor appetite or weakness Eyes Eyes: Denies blurry vision, change in vision, floaters, seeing flashes or spots in vision ENT HEENT: Denies dizziness, headache(s), loss taste/smell or sore throat Cardiovascular Cardiovascular: Denies chest pain, dizziness, dyspnea, irregular heart rhythm, lightheadedness, palpitations or rapid heart rate Respiratory/Chest Respiratory/Chest: Denies change in mental status, chest tightness, cough, dyspnea or breast pain Gastrointestinal Gastrointestinal: Denies anorexia, chewing difficulty, constipation, diarrhea or weight changes Genitourinary Genitourinary: Denies difficulty urinating, dysuria, flank pain, genital pain, urinary frequency or urinary urgency Musculoskeletal Musculoskeletal: Denies back pain, difficulty walking, extremity pain, joint pain, muscle cramps or muscle weakness Integumentary Integumentary: Denies lesions or unusual bruising Neurologic Neurologic: Denies abnormal movements, abnormal speech, dizziness, numbness, seizure-like activity, syncope or weakness Psychiatric Psychiatric: Denies behavioral changes, change in appetite, confusion, depression, homicidal ideation, suicidal ideation or suicidal thoughts Endocrine Endocrinology: Denies excessive sweating, polydipsia or polyuria Hematologic/Lymphatic Hematologic/Lymphatic: Denies anemia Allergic/Immunologic Allergic/Immunologic: Denies itchy eyes, lip swelling, throat swelling, tongue swelling or wheezing Vital Signs Vital Signs Vital Signs: 12/25/24 20:00 12/25/24 20:00 12/25/24 20:00 Temperature Temperature Source Temporal Pulse Rate 89 Respiratory Rate Blood Pressure 138/91 H BP Systolic 138 BP Diastolic 91 12/25/24 20:00 12/25/24 20:00 Temperature 97.9 F Temperature Source Pulse Rate Respiratory Rate 16 Blood Pressure BP Systolic BP Diastolic Weight Weight: 279 lb 8.738 oz Body Mass Index (BMI) 51.1 Physical Exam Const alert, oriented x3 and no apparent distress General Appearance: cooperative Orientation / Consciousness: awake HEENT normocephalic Neck full ROM Lymph Lymphatic: no lymphadenopathy noted Chest inspection of chest normal Resp normal respiratory effort and normal air movement Effort and Inspection: able to speak in complete sentences and symmetric chest movement GI soft to palpation and non-tender Inspection: gravid Palpation: soft; Negative for tender external exam normal Back/Spine normal to inspection Extremity normal to inspection and full ROM Skin no rashes or lesions noted Psych mental status grossly normal Appearance: grossly normal Speech: normal speech Labs Labs Labs: Blood Type A POSITIVE Antibody Screen NEGATIVE Hct, (37-47) 33.3 % L Hgb, (12.0-15.0) 11.1 g/dL L Obstetrics Ultrasound Syphilis Total Ab, (Nonreactive) Nonreactive Rubella IgG Antibody, (Nonreactive) REAC Hep Bs Antigen, (Nonreactive) Nonreactive Hepatitis C Antibody, (Nonreactive) Nonreactive Chlamydia DNA (MCKENZIE), (Negative) Negative N.gonorrhoeae DNA (MCKENZIE), (Negative) Negative HIV 1&2 Antibody, (Nonreactive) Nonreactive Glucose 1 Hr 50 gm, (70-140) 138 mg/dL Gest Glucose Tolerance mg/dL Assessment & Plan (1) Encounter for induction of labor: PLAN: Patient presents IAL, plan expectant management for , pitocin/AROM PRN if needed. Pain management: plans epidural. GBS neg Management of any complications: see list I have reviewed the [facility] and made any clinically relevant updates. Dr Casper aware of admission, plan and assessment. (2) Abnormal glucose affecting : COMMENT: passed 3 hour (3) Polycystic disease, ovaries: COMMENT: counseled regarding continuing vs stopping metformin, patient continued last with good outcomes wants to continue this (4) Obesity affecting : QUALIFIERS: Trimester: third trimester Obesity type affecting : unspecified obesity Qualified Code(s): O99.213 - Obesity complicating , third trimester COMMENT: BMI 45.4; BPPs at 34 weeks& needs anesthesia consult HgBA1C ordered w/NOB (5) AMA (advanced maternal age) multigravida 35+: QUALIFIERS: Trimester: third trimester Qualified Code(s): O09.523 - Supervision of elderly multigravida, third trimester COMMENT: growth at 36 (6) Supervision of high-risk : QUALIFIERS: Trimester: third trimester Qualified Code(s): O09.93 - Supervision of high risk , unspecified, third trimester COMMENT: PRR, , SLIME 01/14/25, PC: Chad, PC: Parth (7) : QUALIFIERS: Weeks of gestation: 36 weeks Qualified Code(s): Z3A.36 - 36 weeks gestation of COMMENT: GBS neg, accept NIPT- low risk, male (8) Herpes simplex type 2 infection: COMMENT: Valtrax PRN (9) Hypertension: QUALIFIERS: Hypertension type: unspecified Qualified Code(s): I10 - Essential (primary) hypertension COMMENT: on Metoprolol - weekly bpp's starting 32 weeks. deliver 37-38 weeks. (10) Acute thoracic myofascial strain: (11) Depression: QUALIFIERS: Depression Type: unspecified Qualified Code(s): F32.A - Depression, unspecified COMMENT: Lexapro stable Charges/Coding Multi Select Codes Urinary/Genital Urinary/Genital CPT Codes: No Charge
[2024-12-25 21:25] LABS: Hematocrit 34.4 % (37-47); Hemoglobin 11.5 g/dL (12.0-15.0); Immature Granulocytes Count 0.050 X10^3/uL (0.0-0.0); Mean Corp Hgb Conc 33.4 g/dL (32-36); Mean Corpuscular Volume 88.9 fL (81-99); Mean Platelet Vol. 11.1 fl (6.2-12.0); NRBC Flagged by Analyzer 0 % (0-5); Platelet Count 220 K/mm3 (150-450); RBC Distribution Width CV 13.5 % (11.6-14.6); RBC Distribution Width SD 43.3 fl (35.1-43.9); Red Blood Count 3.87 M/mm3 (4.2-5.4); White Blood Count 9.9 K/mm3 (4.4-11.0)
[2024-12-25 21:57] LABS: Syphilis Antibodies Nonreactive (Nonreactive)
[2024-12-26] VITALS (38 sets, daily range): BP systolic 109–151; BP diastolic 58–87; PULSE 75–115; RESP 16–20; TEMP 36.3–36.8; O2SAT 94–100; BMI 1300.0; BMI 20251021.0
[2024-12-26] MEDS: 0.9% Normal Saline Single 100 ML IV.SOLN. INTRA-UTER (07:55)
[2024-12-26] MEDS: Lactated Ringers 1,000 ML 999 ML IV (08:35)
[2024-12-26] MEDS: Lactated Ringers 1,000 ML 200 ML IV (09:34)
[2024-12-26] MEDS: fentaNYL-bupivacaine (epidural) 100 ML BAG EPIDURAL (10:20)
--- NOTE | 2024-12-26 12:33 | PN_ITS ---
Progress Note pt is comfortable with epidural . She consents to arom and placement of internal monitors current tracing: FHT: Moderate variability reactive no decelerations category I tracing [place]: q 2 min Contractions There is dark blood in vagina and on thighs, no active bleeding. cx: 5/70/-1, membranes ruptured with moderate clear fluid. IUPC and FSE placed. there were 3 variables that changed to minimal variability and now moderate variability with position change A/P: 37 week PIH -continue monitoring. pit prn.
[2024-12-26] MEDS: Oxytocin 15 Units/NS 250ml 15 UNITS/250 ML IV.SOLN 334 UNITS IV (14:03)
[2024-12-26] MEDS: Oxytocin 15 Units/NS 250ml 15 UNITS/250 ML IV.SOLN 83 UNITS IV (14:16)
--- NOTE | 2024-12-26 15:23 | EX.PCM.OBVAG ---
Assessment & Plan (1) Encounter for induction of labor: (2) Abnormal glucose affecting : COMMENT: passed 3 hour (3) Polycystic disease, ovaries: COMMENT: counseled regarding continuing vs stopping metformin, patient continued last with good outcomes wants to continue this (4) Obesity affecting : QUALIFIERS: Trimester: third trimester Obesity type affecting : unspecified obesity Qualified Code(s): O99.213 - Obesity complicating , third trimester COMMENT: BMI 45.4; BPPs at 34 weeks& needs anesthesia consult HgBA1C ordered w/NOB (5) AMA (advanced maternal age) multigravida 35+: QUALIFIERS: Trimester: third trimester Qualified Code(s): O09.523 - Supervision of elderly multigravida, third trimester COMMENT: growth at 36 (6) Supervision of high-risk : QUALIFIERS: Trimester: third trimester Qualified Code(s): O09.93 - Supervision of high risk , unspecified, third trimester COMMENT: PRR, , SLIME 01/14/25, PC: Chad, PC: Parth (7) : QUALIFIERS: Weeks of gestation: 36 weeks Qualified Code(s): Z3A.36 - 36 weeks gestation of COMMENT: GBS neg, accept NIPT- low risk, male (8) Herpes simplex type 2 infection: COMMENT: Valtrax PRN (9) Hypertension: QUALIFIERS: Hypertension type: unspecified Qualified Code(s): I10 - Essential (primary) hypertension COMMENT: on Metoprolol - weekly bpp's starting 32 weeks. deliver 37-38 weeks. (10) Acute thoracic myofascial strain: (11) Depression: QUALIFIERS: Depression Type: unspecified Qualified Code(s): F32.A - Depression, unspecified COMMENT: Blakeapro stable Maternal Data Information SLIME Calculator Estimated Delivery Date Method Current WG Current Estimate 01/14/25 LMP (Certain) 37w 2d Other Estimates 01/17/25 Ultrasound #1 36w 6d Final SLIME: 01/14/25 Gestational age: 37 weeks 2 days [place] Doctor Who Attended Delivery: Jim Dobson Vaginal Delivery Maternal Presentation Maternal Presentation: Medically Indicated Induction Type of Induction: Padilla Bulb, Amniotomy and Cytotec Medical Reason for Induction: Gestational Hypertension Vaginal Delivery Information Procedure Performed: Vacuum Assisted Vaginal Delivery Station at time of placement: +2 Number of vacuum pulls: 1 Number of vacuum pop offs: 0 Surgeon/Practitioner: Anh Song Date of Procedure: 12/26/24 Pre-Procedure Diagnosis: @ 3 weeks 2 days, gestational hypertension, intolerance to labor and terminal bradycardia Post-Procedure Diagnosis: @ 3 weeks 2 days, gestational hypertension, intolerance to labor and terminal bradycardia Type of anesthesia: Epidural Findings Description of procedure: Patient began pushing and the heart rate was noted to decelerate with each contraction, ultimately leading to bradycardia. The Kiwi vacuum was applied to to the 's head with the parents consent and 1 pull was performed. The head delivered in the HAYLEY presentation. The head was delivered atraumatically. The anterior and posterior shoulders delivered without complication followed by the rest of the infant and the was placed on the maternal abdomen. Delayed cord clamping was employed for approximately 60 seconds. Cord was clamped and cut and gentle traction was applied to the cord and the placenta delivered spontaneously immediately following it was noted to be intact with three-vessel cord. The perineum and vagina were inspected and noted to have a small karla-ureethral laceration. this was repaired with a 3-0 vicryl. EBL was 300cc. Patient and infant tolerated delivery well. 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
--- NOTE | 2024-12-26 15:29 | DCINST_ITS ---
Discharge Instructions DC O2, CPAP, BIPAP needs Home O2 Discharge instructions: No Dressing / Incision Discharge Activity: Return to Normal Activity, May Not Drive (while taking narcotic pain medications.) and May Shower May resume sexual activity in: 4-6 weeks Dressing / Incision Call your doctor if your incision/area has: Continuous Slow Oozing, Sudden Increased Bleeding, Increased Pain/ Swelling, Increased Redness and Foul Smelling Discharge Follow Up Care Please Follow Up With: Anh Song, When: Call [phone] to make an appointment with your doctor in 6 weeks. If you had elevated blood pressure or 4th degree laceration, you will need to be seen in 2 weeks. Test Results: Test results from this visit will be discussed in further detail at your follow- up appointment, if applicable. Discharge Plan Admission Admit Date/Time: 12/25/24 19:15 Attending Provider: Anh Song Primary Care Provider: Judie Bella Discharge Orders/Prescriptions Prescriptions: No Action escitalopram oxalate [Lexapro] 20 mg tablet 20 mg PO QDAY metoprolol succinate 100 mg tablet extended release 24 hr 100 mg PO BID valacyclovir [Valtrex] 500 mg tablet 500 mg PO QDAY Qty: 30 12RF [id number] 1 mg Tablet 1 tab PO DAILY Referrals / Follow Up: Judie Bella MD [Primary Care Provider, Family Practice]
[2024-12-26] MEDS: Metoprolol(XL)Succ 100 MG Tablet PO (20:53)
[2024-12-27] VITALS (9 sets, daily range): BP systolic 113–129; BP diastolic 68–77; PULSE 71–93; RESP 14–16; TEMP 36.2–36.8; O2SAT 96–100
--- NOTE | 2024-12-27 07:48 | PCM.PN.OB ---
Subjective Subjective Patient doing well without complaints. Tolerating PO. Ambulating and voiding without difficulty. Feeding well. Denies chest pain, shortness of breath, calf pain/swelling, fevers, chills, lightheadedness. Objective Data Objective Data Vital Signs: Vital Signs Temp Pulse Resp BP Pulse Ox O2 Del Method 97.2 F L 83 16 118/68 99 Room Air 12/27/24 07:45 12/27/24 07:46 12/27/24 07:45 12/27/24 07:45 12/27/24 07:46 12/27/24 07:45 Oxygen Delivery Method Room Air Weight: 279 lb 8.738 oz Body Mass Index (BMI) 51.1 Intake & Output: Intake and Output for Last 24 Hours 12/25/24 12/26/24 12/27/24 23:59 23:59 23:59 Intake Total 2336.53 / 2336.53 Output Total 300 / 300 Balance 2036.53 / 2036.53 - / 20 Lab / Micro Data 12/25/24 21:05 ROS Constitutional Constitutional: Reports systems reviewed and no addt'l complaints, except as documented Cardiovascular Cardiovascular: Reports as per HPI Respiratory/Chest Respiratory/Chest: Reports as per HPI Genitourinary Genitourinary: Reports as per HPI Physical Exam Const alert and oriented x3 HEENT normocephalic Eyes PERRL Neck full ROM Resp normal respiratory effort GI soft to palpation GI Narrative: FF below U Assessment & Plan (1) Vacuum-assisted vaginal delivery: COMMENT: ROMEL JV Nahum CHTN (2) Herpes simplex type 2 infection: COMMENT: Valtrax PRN (3) Hypertension: QUALIFIERS: Hypertension type: unspecified Qualified Code(s): I10 - Essential (primary) hypertension COMMENT: on Metoprolol -stable pp. (4) Depression: QUALIFIERS: Depression Type: unspecified Qualified Code(s): F32.A - Depression, unspecified COMMENT: Lexapro stable PLAN: Plan s/p VAVD PPD # 1 1. routine post delivery care 2. breast feeding- support given 3. rh positive 4. rubella immune 5. BP stable 6. home today
--- NOTE | 2024-12-27 09:10 | NURSING ---
Pt reports bladder fullness and pressure. Pt states she has voided approximately 20 mL since delivery. Straight cath done per order.
--- NOTE | 2024-12-28 09:07 | CASEMGMT ---
Social Work Assessment Labor and Delivery Unit Patient Address: [address] [place] [address] Phone number: [phone] Date of Referral: 12/27/24 Time of Referral: 923 Referred By: Dr. Song Date of Intervention: 12/27/24 Time of Intervention: 1250 Reason for Referral: "hx of depression" Jair completed chart review and acknowledges social work consult due to maternal history of depression. Jair presented to bedside and introduced self to mother of baby, CORY Ireland. While completing assessment, father of baby, CODY Alba presented to bedside and engaged in remaining portion of assessment. History obtained from: medical records, VISHAL and JASMEET Household composition: Currently residing in the family home is JASMEET RODGERS and their 3 year old son, Chad. VISHAL states that they are in the process of moving. They recently purchased her in-law's home and until her in-laws move into their new home they will be continuing to live with them. VISHAL states that this will be nice to have the extra help from her in-laws now that baby is here, who will also reside with family when ready for discharge. VISHAL denies any housing concerns, stating their home is safe and secure. Patient's parent/guardian status: VISHAL states that she and JASMEET met online, they have been together for 3.5 years and are . [place] baby is their second baby together. VISHAL denies history or concerns with domestic violence or intimate partner violence. Medical History: VISHAL is 34 year old female who is 2, para 1- now 2 following labor and delivery of . VISHAL received routine care during with [facility]. VISHAL presented to hospital for induction of labor due to hypertension and delivered baby via vaginal delivery on 12/26/24 at 37 weeks gestation. Baby boy, named Nahum, was born weighing 6lb 8oz and had agpars of 7 and 9 at one and five minutes of life, respectfully. VISHAL is breast feeding and bottle feeding baby, and reports that baby will be followed by Dr. Berry for pediatric care and follow up. Educational Status: Both parents graduated from high school and VISHAL obtained her associates degree. JASMEET attended some college but did not graduate. No concerns with reading, learning or comprehension. Financial Status: Both parents are gainfully employed outside of the home. 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 Supplies: All necessary baby supplies obtained, including: car seat, safe sleep space, clothes, diapers and wipes. Childcare/Caregiver(s): VISHAL reports that she and JASMEET will be the primary caregivers to baby. When both parents are working they have help with childcare from paternal grandparents. Transportation: Both parents have their drivers license and reliable means of transportation, no barriers. Programs/Agencies Involved: Parents are over income for financial assistance from community resources. Children Services/Legal Issues: No history of children services involvement, no issues or concerns warranting referral to be made at this time. Behavioral Health Issues: Mental Health History: JASMEET states that he has anxiety and OCD. He is prescribed medication to help him manage his mental health. JASMEET states that his OCD is mostly involving germs. He states that he wipes off their older sons hands a lot, washes their clothes a specific way, wipes things down at restaurants and at grocery stores, etc. VISHAL states that JASMEET's OCD is managed and it is not something that takes over their lifestyle. VISHAL reports that she has been diagnosed with anxiety and depression. VISHAL also states that she struggled with some symptoms when she had her first baby. VISHAL is currently prescribed Lexapro to help her manage her mental health. VISHAL states that she feels more prepared going into this period. VISHAL states that she hopes that this journey is not as hard as her first one was. Substance Use History: Parents deny substance use prior to and during . Family History: No family history of substance use or significant mental health history. Drug Screens: No drug screens observed while completing chart review. Family/Social Stressors: VISHAL denies any issues, stressors or concerns. Support Systems: VISHAL identifies that JASMEET, and both sets of grandparents are her biggest supports. Depression/Shaken Baby/Safe Sleeping: Jair educated parents on signs and symptoms of baby blues and mood and anxiety disorders to be mindful of going into this period. Jair explained to VISHAL that she is more at risk for experiencing symptoms due to her mental health history. VISHAL expresses understanding. VISHAL says that she had a conversation with JASMEET about recognizing when she may be struggling with her mental health. FOB states that he would be able to know if VISHAL is having a hard time with her mental health during this period. FOGeronimo states that he would know how to help and support her. VISHAL states that JASMEET's mom is also a really good support person to her. VISHAL states that she is thankful for the strong relationship that she has with her [id number]. MOB states that she hopes that this period is not as difficult as her first one was. MOB states that she struggled with breast feeding with her first baby, and that contributed to her mental health significantly. MOB states that this time she decided that she was not going to pressure herself to exclusively breastfeed, and was going to just feed her baby with whatever worked best for her and her family. Sw educated parents on shaken baby prevention and ABCs of safe sleep, parents express understanding. ASSESSMENT: MOB and baby admitted following labor and delivery. MOB with mental health history of anxiety and depression, and does disclose that she struggled with depression after her first baby was born. MOB informed sw that she believes that her symptoms were mostly correlated to struggling with breast feeding difficulties that she was having. MOB states that going into this journey, she has already decided to feed her baby whatever way works best for her and him. MOB states that as of now she feels really good, and reports to feeling really good mentally during her . MOB states that now that baby has been born she feels like herself, denies feeling down, sad, anxious or tearful. While meeting with MOB she was laying comfortably in bed, baby was not present as he was taken to be circumcised. After meeting with MOB for several minutes, FOGeronimo then presented to room and engaged in conversation. Both parents were pleasant and talkative, conversation flowed naturally and easily. Parents have natural supports in place and have obtained all necessary baby supplies. PLAN: No other services requested or indicated. MOB and baby to be discharged when medically ready. Parents were provided literature regarding: signs and symptoms of baby blues and mood and anxiety disorders, Help Me Grow, shaken baby prevention, ABCs of safe sleep and a list of county resources that are available for them should any needs present themselves. Sebastien Pires, RUM PROCESSING OPERATOR, SPECIAL EFFECTS TECHNICIAN
--- NOTE | 2025-01-01 15:12 | NURSING ---
01/01/2025-@9931 called for follow up phone call, left voicemail message.
== END 2024-12-27 17:14 | disposition home or self-care (01) | DRG 806 ==
PROVIDERS: Advanced Practice Midwife; Admitting Provider Obstetrics & Gynecology; PCP Family Medicine; Referring Provider Obstetrics & Gynecology; Visit Provider Obstetrics & Gynecology
DX: O76 Abnormality in fetal heart rate and rhythm complicating labor and delivery (principal); Z37.0 Single live birth; O98.52 Other viral diseases complicating childbirth; O99.344 Other mental disorders complicating childbirth; B00.9 Herpesviral infection, unspecified; F32.A Depression, unspecified; O99.214 Obesity complicating childbirth; E28.2 Polycystic ovarian syndrome; S29.019A Strain of muscle and tendon of unspecified wall of thorax, initial encounter; O13.4 Gestational [pregnancy-induced] hypertension without significant proteinuria, complicating childbirth; Z3A.37 37 weeks gestation of pregnancy; Z81.8 Family history of other mental and behavioral disorders; O99.284 Endocrine, nutritional and metabolic diseases complicating childbirth; O9A.22 Injury, poisoning and certain other consequences of external causes complicating childbirth; O71.82 Other specified trauma to perineum and vulva
CPT/HCPCS: 59025; 59050; 85025; 86780; 86850; 86900; 86901; 99221; G0378; J0675; J2405